=== PATIENT | male | born 1945 | race Caucasian/White ===

== ENCOUNTER 2019-11-08 16:45 | Emergency (ER) | payer OTHER, BC ==
--- OUTSIDE RECORDS SUMMARY | 2019-11-08 16:47 | XMS REPORT | Clinical Summary ---
:1945 Author Organization [facility] Address [address] [place] [address] Care Team Providers Name Role Phone Lake Roman Primary Care Provider Unavailable Allergies No Known Allergies Medications Medication Sig Dispensed Refills Start Date End Date Status metoprolol (LOPRESSOR) Take 25 mg by 0 Active 25 MG tablet mouth 2 (two) times daily. fenofibric acid, Take 135 mg by 0 Active choline, 135 mg mouth daily. capsule omega-3 acid ethyl Take 2 g by mouth 0 Active esters (LOVAZA) 1 gram 2 (two) times capsule daily. pioglitazone (ACTOS) Take 45 mg by 0 Active 45 MG tablet mouth daily. pantoprazole Take 40 mg by 0 Act howard (PROTONIX) 40 MG mouth daily. tablet aspirin 81 MG EC Take 81 mg by 0 Active tablet mouth daily. rosuvastatin (CRESTOR) Take 10 mg by 0 Active 10 MG tablet mouth daily. ranolazine (RANEXA) Take 1,000 mg by 0 Active 500 MG 12 hr tablet mouth daily. omeprazole (PRILOSEC) Take 40 mg by 0 Active 40 MG capsule mouth daily. nitroglycerin Place 0.3 mg 0 Act howard (NITROSTAT) 0.3 MG SL under the tongue tablet every 5 (five) minutes as needed for Chest pain Put 1 pill under tongue every 5min as needed for chest pain.No more than 3 doses in 15min.Call 911 if pain is unrelieved 5min after 1st dose . furosemide (LASIX) 40 Take 40 mg by 0 Active MG tablet mouth daily. cholecalciferol Take 1,000 Units 0 Active (VITAMIN D3) 1,000 by mouth daily. unit tablet omeprazole-sodium Use as directed 0 03/07/2017 Active bicarbonate (ZEGERID) 45 mg in the 40-1.1 mg-gram per mouth or throat 2 capsule (two) times daily. ticagrelor (BRILINTA) Take 1 tablet (90 180 tablet 3 9 Active 90 mg Tab tablet mg total) by mouth 2 (two) times daily. metFORMIN (GLUCOPHAGE) Earliest you can 0 10/16/2018 Active 1000 MG tablet resume the metformin after cath would be this Monday. Do not resume until seen by PCP and cleared to resume.. Active Problems Problem Noted Date Unstable angina 10/09/2018 Cardiomyopathy 07/20/2017 Dilated cardiomyopathy 07/20/2017 Syncope and collapse 12/31/2012 Social History Tobacco Use Types Packs/Day Years Used Date Never Smoker Smokeless Tobacco: Never Used Alcohol Use Drinks/Week oz/Week Comments Yes ocassional Sex Assigned at Date Recorded Not on file Job Start Date Occupation Industry Not on file Not on file Not on file Travel History Travel Start Travel End No recent travel history available. Last Filed Vital Signs Not on file Plan of Treatment Not on file Implants Implanted Type Area Hand Bunch Maker Device Shelf Model / Identifier Expiration Serial / Date Lot Lead Attain Ability Str 78cm [id number] - [id number] Cardiovascu lar Left: MEDTRONIC:CAR 09/26/2018 [id number] / Implanted: Qty: 1 on 07/21/2017 by Saud Robles MD Heart D RHY:DISEASE [id number] / MGT N/A Ld Endocardial Df4 Act 55 [id number] - [id number] Defibrillators Left: MEDTRONIC:CAR 05/20/2019 [id number] / Implanted: Qty: 1 on 07/21/2017 by Saud Robles MD Heart D RHY:DISEASE [id number] / MGT N/A Stent Synergy Otw [id number] - [id number] IMPLANTS Left: [place] [id number] 06/04/2020 [id number] / Implanted: Qty: 1 on 10/15/2018 by Collin Salas MD Coron winnie SCI:INTERV / CARDIOLOGY [id number] Claria Mri Supervisor Press Room-D Surescan Left: MEDTRONIC:CAR 10/24/2018 [id number] / Implanted: Qty: 1 on 07/21/2017 by Saud Robles MD Ch est D RHY:PACING [id number] / SYS N/A Results Not on fileafter 11/07/2018 Insurance Payer Benefit Plan / Subscriber ID Type Phone Address Group MEDICARE MEDICARE A B xxxxxxxxxxx Medicare BLUE CROSS/BLUE BCBS FED xxxxxxxxx PPO [phone] [address] [place] [address] Advance Directives For more information, please contact:[address] [phone] Code Status Date Activated Date Inactivated Comments Full Code 10/09/2018 4:30 PM 10/16/2018 12:31 PM This code status was determined by: Patient Full Code 07/20/2017 9:47 AM 07/22/2017 9:32 PM This code status was determined by: Patient Code ONE 12/31/2012 9:49 AM 01/01/2013 12:29 PM All possib le means of support including;cardia c massage, mechanical ventilation, and defibrillation will be used to suppo rt life.
--- OUTSIDE RECORDS SUMMARY | 2019-11-08 16:47 | XMS REPORT | Clinical Summary ---
:1945 Author Organization [facility] Address [address] [place] [address] Care Team Providers Name Role Phone Ken Roman MD Primary Care Provider [phone] Allergies No Known Allergies Medications Medication Sig Dispensed Refills Start Date End Date Status aspirin (ECOTRIN) 81 MG Take 81 mg by 0 Active enteric coated tablet mouth. cholecalciferol, vitamin Take 1,000 Units 0 Active D3, (VITAMIN D3) 1,000 by mouth. unit tablet choline fenofibrate Take 135 mg by 0 03/10/2017 Active (TRILIPIX) 135 mg mouth. capsule furosemide (LASIX) 40 mg Take 40 mg by 0 Active tablet mouth. HYDROcodone-acetaminophe Take 1 tablet by 0 03/06/19 18 Active n (NORCO) 10-325 mg per mouth. tablet omega-3 acid ethyl Take 2 g by 0 03/06/2017 Active esters (LOVAZA) 1 gram mouth. capsule metoprolol tartrate Take 50 mg by 0 04/19/2016 Active (LOPRESSOR) 50 mg tablet mouth. nitroglycerin Place 0.3 mg 0 03/06/2017 Ac tive (NITROSTAT) 0.3 MG SL under the tablet tongue. omeprazole (PriLOSEC) 40 Take 40 mg by 0 03/06/2017 Active MG capsule mouth. pioglitazone (ACTOS) 45 TAKE 1 TABLET 0 09/18/2017 Active MG tablet DAILY ranolazine (RANEXA) Take 1,000 mg by 0 03/10/2017 Active 1,000 mg 12 hr tablet mouth. atorvastatin (LIPITOR) Take 10 mg by 0 Active 10 MG tablet mouth daily. Active Problems Problem Noted Date Iron deficiency anemia 11/30/2017 Anemia 11/30/2017 Colon polyp Gastric ulcer GERD (gastroesophageal reflux disease) Family History Relation Name Status Comments Father Mother Social History Tobacco Use Types Packs/Day Years Used Date Never Smoker Smokeless Tobacco: Never Used Alcohol Use Drinks/Week oz/Week Comments Yes very little Sex Assigned at Date Recorded Not on file Job Start Date Occupation Industry Not on file Not on file Not on file Travel History Travel Start Travel End No recent travel history available. Last Filed Vital Signs Not on file Plan of Treatment Health Maintenance Due Date Last Done Comments DIABETIC RETINAL EYE EXAM 1945 DIABETIC FOOT EXAM 1955 URINE MICROALBUMIN 1955 SHINGLES VACCINES (#1) 1996 65+ PNEUMOCOCCAL VACCINE (1 of 2 - PCV13) 12/23/2011 INFLUENZA VACCINE 11/28/2019 COLONOSCOPY SCREENING 12/01/2027 11/30/2017 Results Not on fileafter 11/07/2018 Insurance Payer Benefit Plan / Subscriber ID Effective Dates Phone Addre ss Type Group MEDICARE MEDICARE PART A xxxxxxxxxxx 2011-Present HOUS [facility] [place] Medicare AND B BCBS BCBS CHOICE xxxxxxxxx 1984-Present P PO PPO/FEDERAL EMPL PPO Advance Directives For more information, please contact: [phone] Type Date Recorded Patient Comp Field Case Manager Explanati on Advance Directives, Living Will 12/28/2017 9:03 AM and Medical Power of Lpn [facility]ice
--- OUTSIDE RECORDS SUMMARY | 2019-11-08 16:55 | XMS REPORT | Continuity of Care Document ---
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/2012 [facility] Diabetes Resolved Problem 11/17/2012 [facility] dm Resolved Problem 11/17/2012 [facility] Fracture Active Problem 11/17/2012 [facility] Hypertension Resolved Problem 11/17/2012 [facility] Pain Active Problem 11/17/2012 [facility] Coronary bypass Resolved Problem 10/09/2019 surgery(Confirmed) [place] Diabetes mellitus Resolved Problem 10/09/2019 H (disorder) [place] dm (qualifier Resolved Problem 10/09/2019 value) [place] Essential Resolved Problem 10/09/2019 hypertension [place] (disorder) Pain (finding) Active Problem 10/09/2019 [place] ANEMIA IN CHRONIC Active Sd morial KIDNEY DISEASE Gabriela nn GASTROINTESTINAL Active Mem orial HEMORRHAGE, Aric UNSPECIFIED NON-ST ELEVATION Active Mem orial (NSTEMI) MYOCARDIAL Aric INF ACUTE KIDNEY Active Memoria l FAILURE, Aric UNSPECIFIED ACUTE RESPIRATORY Active [facility] FX FIBULA Active [facility] Medications Medication Details Route Status Patient Ordering Order Source Instructions Provider Date bumetanide 2 mg 2 mg = 1 tab, Active oral tablet PO, Q8H, Hold [address] [place] for systolic blood pressure less than 100 or heart rate less than 60, # 30 tab, 0 Refill(s), [id number], 175.26, cm, 10/04/19 20:03:00 CDT, Height, 123, kg, 10/04/19 20:03:00 CDT, Weight isosorbide 60 mg = 1 Active mononitrate 60 mg tab, PO, QAM, 2019 [place] oral tablet, Hold for extended release systolic blood pressure less than 100 or heart rate less than 60, # 90 tab, 1 Refill(s), [id number], 175.26, cm, 10/04/19 20:03:00 CDT, Height, 123, kg, 10/04/19 20:03:00 CDT, Weight Tylenol Notes: Do not Inactive exceed 4 2019 [place] gm/day. (Same as: Tylenol) albumin human 25% Notes: LOT#: Inactive intravenous 2020 [place] solution Mfg: WASTE: F/P - Red; E -Red (Same as: Albuminar) "blood product derivative" Potassium Notes: (Same Inactive Chloride as: K-Dur ) 2019 [place] "Do Not Crush" Give with food and full glass of water For patients unable to swallow tablet, dissolve in one half glass of water. Allow about 2 minutes for the tablets to disintegrate. Stir before giving to prepare slurry and administer. Please exclude Patient&#[id number] ;s with feeding tube less than 14 [place] (Dobhoff, J-tube etc) and pediatric and patients. metolazone Notes: (Same No Longer as: Active 2019 [place] Zaroxolyn) Vitamin D3 1999 Notes: Same No Longer intl units oral as : Vitamin Active 2019 [place] tablet D3 Fenofibrate 135 mg, 1 No Longer cap, Route: Active 2019 [place] PO, Drug form: CAP, Daily, Dosing Weight 123, kg, Start date: 10/06/19 9:00:00 CDT, Duration: 30 day, Stop date: 11/04/19 9:00:00 CDT fenofibrate Notes: (Same No Longer as: Tricor) Active 2019 [place] Aspirin Notes: Do not No Longer crush or Active 2019 [place] chew. (Same As: Ecotrin) isosorbide Notes: (Same No Longer mononitrate as:Imdur) "Do Active 2019 [place] extended release Not Crush" Take on empty stomach/ full glass of water. Do not crush Metolazone 5 MG Notes: (Same Inactive Oral Tablet as: 2019 [place] Zaroxolyn) Bumex Notes: (Same No Longer As: Bumex) Active 2019 [place] Bumex 2 mg, Route: Inactive IV, Q8H, 2019 [place] Dosing Weight 123, kg, Priority: NOW, Start date: 10/05/19 23:06:00 CDT, Duration: 30 day, Stop date: 11/04/19 16:00:00 CDT Sodium Chloride 250 mL, Rate: No Longer 0.9% (titrate) To prime line Active 2019 [place] 250 mL and flush remaining blood products., Dosing Weight 123, kg, Route: IV, Total Volume: 250, Start Date: 10/05/19 23:05:00 CDT, Duration: 1 day, Stop date: 10/06/19 23:04:00 CDT, Replace Every: 24 hr, 0 albumin human 25% 25 gm, Route: Inactive intravenous IVPB, ONCE, 2019 [place] solution Dosing Weight 123, kg, Start date: 10/05/19 21:22:00 CDT, Stop date: 10/05/19 21:22:00 CDT, Indication: Non-hemorrhag ic shock Morphine Notes: (Same No Longer as:MORPhine Active 2019 [place] Sulfate) Dilaudid Notes: Same No Longer as: Dilaudid Active 2019 [place] atorvastatin Notes: (Same No Longer As: Lipitor) Active 2019 [place] Jones packet Notes: (Same No Longer as: Jones Active 2019 [place]) Bumex Notes: (Same Inactive As: Bumex) 2019 [place] Fluticasone Notes: (Same No Longer propionate 0.05 as: Flonase) Active 2019 [place] MG/ACTUAT Metered Dose Nasal [place] [Flonase] Protonix Notes: For IV No Longer push Active 2019 [place] reconstitute with 10 ml 0.9% sodium chloride and push over 2 minutes. (Same as: Protonix) Sodium Chloride 250 mL, Rate: No Longer 0.9% (titrate) To prime line Active 2019 [place] 250 mL and flush remaining blood products., Dosing Weight 123, kg, Route: IV, Total Volume: 250, Start Date: 10/05/19 14:06:00 CDT, Duration: 1 day, Stop date: 10/06/19 14:05:00 CDT, Replace Every: 24 hr, 0 Morphine 4 mg, Route: Inactive IVP, ONCE, 2019 [place] Dosing Weight 123, kg, Start date: 10/05/19 10:08:00 CDT, Stop date: 10/05/19 10:08:00 CDT Nitroglycerin 0.3 Notes: (Same No Longer MG Sublingual as:Nitroquick Active 2019 [facility] Tablet , Nitrostat) "Do Not Crush" Sublingual tablet Sodium Chloride 250 mL, Rate: No Longer 0.9% (titrate) To prime line Active 2019 [place] 250 mL and flush remaining blood products., Dosing Weight 123, kg, Route: IV, Total Volume: 250, Start Date: 10/05/19 7:25:00 CDT, Duration: 1 day, Stop date: 10/06/19 7:24:00 CDT, Replace Every: 24 hr, 0 12 HR ranolazine Notes: Same No Longer H 500 MG Extended as Ranexa "Do Active 2019 [place] Release Tablet Not Crush" [Ranexa] metoprolol 25 mg 12.5 mg = 0.5 No Longer oral tablet, tab, PO, BID, Active 2019 [place] and extended release 0 Refill(s) pregabalin 75 mg 75 mg = 1 Active oral capsule cap, PO, 2019 [place] Bedtime, 0 Refill(s) atorvastatin 20 mg, PO, Active Bedtime, 0 2019 [place] Refill(s) pantoprazole 40 40 mg = 1 Active mg oral enteric tab, PO, BID, 2019 [place] coated tablet 0 Refill(s) Bumex 2 mg, IV, No Longer Q8H, 0 Active 2019 [place] Refill(s) Metolazone 5 MG 5 mg = 1 tab, Active Oral Tablet PO, Daily, 2019 [place] Hold for systolic blood pressure less than 100 or heart rate less than 60, 0 Refill(s) nafcillin 2 g IV, Q4H, 0 Active injection Refill(s) 2019 [place] Fluticasone 1 spray, Active propionate 0.05 NASAL, BID, # 2020 [place] MG/ACTUAT Metered 16 gm, 0 Dose Nasal [place] Refill(s) [Flonase] Loratadine 10 MG 10 mg = 1 Active Oral Tablet tab, PO, 2019 [place] [Claritin] Daily, 0 Refill(s) Bumex Notes: (Same Inactive As: Bumex) 2019 [place] Ondansetron Notes: (Same No Longer as: Zofran) Active [address] [place] [address] MEDICATION WASTE Product Size: 4 mg Product Wasted: ___ mg Nafcillin 2 gm, Route: No Longer IVPB, Q4H, Active 2019 [place] Dosing Weight 122.727, kg, Start date: 10/04/19 16:00:00 CDT, Duration: 30 day, Stop date: 11/03/19 12:00:00 CDT, 0 Dextrose 50% 12.5 gm, 25 No Longer Syringe (D50W) mL, Route: Active 2019 [facility] nd IVP, Drug Form: INJ, Dosing Weight 122.727, kg, PRN, PRN Blood Glucose Results, Start date: 10/04/19 15:27:00 CDT, Duration: 30 day, Stop date: 11/03/19 15:26:00 CDT, 0 Glucagon 1 mg, Route: No Longer IM, Drug Active 2019 [place] form: PDR/INJ, PRN, Dosing Weight 122.727, kg, PRN Blood Glucose Results, Start date: 10/04/19 15:27:00 CDT, Duration: 30 day, Stop date: 11/03/19 15:26:00 CDT, 0 Insulin Lispro Notes: (Same No Longer as: Humalog) Active 2019 [place] Roll in palms of hands gently; Do not shake vigorously. WASTE: F/P - Black; E - Municipal Trash Bin Stable for 28 days at room temperature. Expires in days from _Date pantoprazole Notes: For IV No Longer additive 80 mg + push Active 2019 [place] Sodium Chloride reconstitute 0.9% IV 100 mL with 10 ml 0.9% sodium chloride and push over 2 minutes. (Same as: Protonix) Sodium Chloride 250 mL, Rate: No Longer 0.9% (titrate) To prime line Active 2019 [place] 250 mL and flush remaining blood products., Dosing Weight 122.727, kg, Route: IV, Total Volume: 250, Start Date: 10/04/19 13:05:00 CDT, Duration: 1 day, Stop date: 10/05/19 13:04:00 CDT, Replace Every: 24 hr, 0 Saline Flush 0.9% Notes: Same No Longer as: BD Active 2019 [place] Posiflush Sterile Sodium Chloride 1,000 mL, Inactive 0.9% (Bolus) IV 1000 ml/hr, 2020 [place] Infuse Over: 1 hr, Route: IV, 1,000, Drug form: INJ, ONCE, Priority: STAT, Dosing Weight 122.727 kg, Start date: 10/04/19 11:51:00 CDT, Stop date: 10/04/19 11:51:00 CDT, 0 pantoprazole Notes: For IV Inactive push 2019 [place] reconstitute with 10 ml 0.9% sodium chloride and push over 2 minutes. (Same as: Protonix) metoprolol 25 mg 25 mg = 1 Active oral tablet, tab, PO, 2019 [place] extended release Daily, # 30 tab, 0 Refill(s) Ticagrelor 90 MG 90 mg = 1 Active Oral Tablet tab, PO, BID, 2019 [place] [Brilinta] 0 Refill(s) omeprazole 40 mg 40 mg = 1 Active oral delayed cap, PO, 2019 [place] release capsule Daily, # 30 cap, 0 Refill(s) [place]-3 oral 0 Refill(s) Active capsule 2019 [place] isosorbide 30 mg = 1 Active mononitrate 30 mg tab, PO, QAM, 2019 [place] oral tablet, # 30 tab, 0 extended release Refill(s) 12 HR ranolazine 500 mg = 1 Active 500 MG Extended tab, PO, BID, 2019 [place] Release Tablet # 60 tab, 0 Refill(s) lisinopril 10 mg 10 mg = 1 Active oral tablet tab, PO, 2019 [place] Daily, # 30 tab, 0 Refill(s) fenofibric acid 135 mg = 1 Active 135 mg oral cap, PO, 2019 [place] delayed release Daily, # 30 capsule cap, 0 Refill(s) pioglitazone 45 45 mg = 1 Active mg oral tablet tab, PO, 2019 [place] Daily, # 30 tab, 0 Refill(s) rosuvastatin 10 10 mg = 1 Active mg oral tablet tab, PO, 2019 [place] Bedtime, # 30 tab, 0 Refill(s) Aspirin 81 MG 81 mg = 1 Active Chewable Tablet tab, PO, 2019 [place] Daily, tab, 0 Refill(s) Vitamin D3 2000 2,000 Active intl units oral IntlUnit = 1 2019 [place] capsule cap, PO, Daily, # 100 cap, 3 Refill(s) Nitroglycerin 0.3 0.3 mg = 1 Active MG Sublingual tab, SL, 2019 [place] Tablet Q5Min, PRN Chest Pain, # 100 tab, 0 Refill(s) Acetaminophen 325 1 tab, PO, Active MH MG / Hydrocodone Q8H, PRN 2020 [place] Bitartrate 10 MG Pain, # 60 Oral Tablet tab, 0 Refill(s) mupirocin topical 1 appl, TOP, TOP Active [facility] [place] 2% ointment BID, 22 gm, 2012 [facility] Substitution Center Allowed, OINT mupirocin topical 1 appl, TOP, TOP No Longer [facility] [place] 2% ointment BID, 1 tube, Active 2012 [facility] Substitution Center Allowed, OINT docusate sodium 100 mg, PO, PO Active [place] 100 mg oral BID, PRN, 20 2012 Medical capsule cap, Center Constipation, Substitution Allowed [place] 10/325 oral 1 tab, PO, PO Active [facility] [place] tablet Q4H, PRN, 24 2012 Medical tab, for Center pain, Substitution Allowed, Maintenance pregabalin 100 mg 100 mg, 1 PO Active [place] oral capsule cap, PO, Q8H, 2012 Medic al 90 cap, Center Substitution Allowed, CAP pantoprazole 40 40 mg, 1 tab, PO Active [facility] [place] mg oral enteric PO, Q12H, 60 2012 Med ical coated tablet tab, Center Substitution Allowed, ECTAB metoprolol 25 mg, 1 tab, PO Active [place] tartrate 25 mg PO, Q12H, 60 2012 Medi aysha oral tablet tab, Center Substitution Allowed, TAB Trilipix 135 mg 135 mg, 1 PO Active [place] oral delayed cap, PO, 2012 Medical release capsule Daily, 30 Center cap, Substitution Allowed, CAP bacitracin 1 appl, TOP, TOP No Longer [facility] [place] topical 500 Daily, PRN, 1 Active 2012 Medica l units/g ointment tube, Wound [place] [facility] Care, Substitution Allowed, OINT atorvastatin 40 40 mg, 1 tab, PO Active [facility] [place] mg oral tablet PO, Daily, 30 2012 Med ical tab, Center Substitution Allowed, TAB aspirin 325 mg 325 mg, 1 PO Active [place] tablet, enteric tab, PO, 2013 Medical coated Daily, 30 Center tab, Substitution Allowed, ECTAB AMIODarone 200 mg 200 mg, 1 PO Active [place] oral tablet tab, PO, 2012 Medical Daily, 30 Center tab, Substitution Allowed, TAB Lovaza oral 1,000 mg, 1 PO Active [facility] [place] capsule cap, PO, BID, 2012 Medical 60 cap, Center Substitution Allowed, Maintenance, CAP Bactroban 2% 1 appl, TOP No Longer [facility] [place] topical ointment Route: TOP, Active 2012 Med ical BID, Drug Center form: OINT, Cleanse left posterior thigh wound with wound cleanser. Pat dry and apply Bactroban ointment BID., Start date: 11/14/12 20:00:00, Duration: 30 day, Stop date: 12/14/12 8:00:00 Bactroban 1 appl, TOP No Longer [facility] [place] Route: TOP, Active 2012 Medical BID, Drug Center form: OINT, Cleanse left posterior thigh wound with wound cleanser. Pat dry and apply Bactroban ointment BID., Start date: 11/14/12 17:00:00, Duration: 30 day, Stop date: 12/14/12 8:00:00 NS 1,000 mL 1,000 mL, IV No Longer Inder [place] Rate: 75 Active 2012 Medical ml/hr, Infuse Center over: 13.3 hr, Route: IV, Dosing Weight 109.091 kg, Total Volume: 1,000, Start date: 11/12/12 20:08:00, Duration: 30 day, Stop date: 12/12/12 20:07:00 magnesium sulfate 2 gm, 50 mL, IVPB No Longer [place] 11/13 [place] Route: IVPB, Active 2012 Medical Drug form: Center INJ, Q2H, Dosing Weight 109.091, kg, Total dose = 4 gm, Start date: 11/12/12 20:00:00, Duration: 2 doses or times, Stop date: 11/12/12 22:00:00 nitroglycerin 0.4 0.4 mg, 1 SL No Longer [place] mg sublingual tab, Route: Active 2012 Medica l tablet SL, Drug Center form: TAB, Q5Min, Dosing Weight 109.091, kg, PRN Chest Pain, Start date: 11/08/12 9:03:00, Duration: 30 day, Stop date: 12/08/12 9:02:00 magnesium sulfate 2 gm, 50 mL, IVPB No Longer [place] 11/08 [place] Route: IVPB, Active 2012 Medical Drug form: [place] INJ, Q2H, Dosing Weight 109.091, kg, Total dose = 4 gm, Start date: 11/08/12 8:00:00, Duration: 2 doses or times, Stop date: 11/08/12 10:00:00 hydrALAZINE 5 mg, 0.25 IV No Longer [place] mL, Route: Active 2012 [facility] IV, Drug Center form: INJ, Q6H, Dosing Weight 109.091, kg, PRN Elevated BP, Start date: 11/07/12 21:12:00, Duration: 30 day, Stop date: 12/07/12 21:11:00 NS 1,000 mL 1,000 mL, IV No Longer [place] Rate: 75 Active 2012 Medical ml/hr, Infuse [place] over: 13.3 hr, Route: IV, Dosing Weight 109.091 kg, Total Volume: 1,000, Start date: 11/07/12 6:30:00, Duration: 30 day, Stop date: 12/07/12 6:29:00 lisinopril 10 mg, 1 tab, PO No Longer [place] Route: PO, Active 2012 Medical Drug form: [place] TAB, ONCE, Dosing Weight 109.091, kg, Start date: 11/05/12 17:01:00, Stop date: 11/05/12 17:01:00 midodrine 10 mg, 1 tab, PO No Longer [place] Route: PO, Active 2012 Medical Drug form: [place] TAB, TID, Dosing Weight 109.091, kg, Start date: 11/04/12 13:00:00, Duration: 30 day, Stop date: 12/04/12 8:00:00 Kayexalate 15 gm, 60 mL, PO No Longer [place] Route: PO, Active 2012 Medical Drug form: [place] SUSP, ONCE, Dosing Weight 109.091, kg, Start date: 11/04/12 10:39:00, Stop date: 11/04/12 10:39:00 insulin 3 unit, 0.03 SUB-Q No Longer [place] isophane-NPH mL, Route: Active 2012 Medical SUB-Q, Drug Center form: INJ, BID, Dosing Weight 109.091, kg, Start date: 11/03/12 11:30:00, Duration: 30 day, Stop date: 12/03/12 8:00:00 magnesium sulfate 2 gm, 50 mL, IVPB No Longer Bubis Eddie Route: IVPB, Active 2012 Medical Drug form: Center INJ, Q2H, Dosing Weight 109.091, kg, Total Dose = 4 gm, Start date: 11/03/12 8:00:00, Duration: 2 doses or times, Stop date: 11/03/12 10:00:00, For Mg = 1.5 - 1.7 mg/dLFor Mg = 1.5 - 1.7 mg/dL Sodium Chloride 250 mL, Rate: IV No Longer Bubis [place] 0.9% (titrate) 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 250 mL use with Center blood product administratio n, Dosing Weight 109.091, kg, Route: IV, Total Volume: 250, Stop date: 12/03/12 7:29:00, Replace Every: 1 hr normal saline 1,000 mL, IV No Longer Bubis [place] 0.9% IV 1,000 mL Rate: 100 Active 2012 Medic al ml/hr, Infuse Center over: 10 hr, Route: IV, Dosing Weight 109.091 kg, Total Volume: 1,000, Start date: 11/02/12 18:27:00, Duration: 2 day, Stop date: 11/04/12 18:26:00 NS (Bolus) IV 500 500 mL, Rate: IV No Longer Omidvar Eddie mL 500 ml/hr, Active 2012 Medical Infuse over: Center 1 hr, Route: IV, Dosing Weight 109.091 kg, Total Volume: 500, Priority: STAT, Start date: 11/01/12 21:26:00, Duration: 1 doses or times, Stop date: 11/01/12 22:25:00, Bolus DoseBolus Dose Lovaza Lovaza PO No Longer Bubis Eddie ([id number] (Tijfb-1-Stxr Active 2012 [facility] Ethyl Esters) Ethyl Esters) Cent er Capsules (1 gm) Capsules (1 gm), 2 cap, Drug form: MISC, Route: PO, BID, 11/01/12 20:00:00, Duration: 30 day, Stop date: 12/01/12 8:00:00 Kayexalate 30 gm, 120 PO No Longer Bubis [place] mL, Route: Active 2012 Medical PO, Drug Center form: SUSP, ONCE, Dosing Weight 109.091, kg, Start date: 11/01/12 15:18:00, Stop date: 11/01/12 15:18:00 normal saline 1,000 mL, IV No Longer Bubis [place] 0.9% IV 1,000 mL Rate: 75 Active 2012 Medica l ml/hr, Infuse Center over: 13.3 hr, Route: IV, Dosing Weight 109.091 kg, Total Volume: 1,000, Start date: 11/01/12 14:26:00, Duration: 1 day, Stop date: 11/02/12 14:25:00 normal saline 1,000 mL, IV No Longer is Moe as 0.9% IV 1,000 mL Rate: 1,000 Active 2012 Med ical ml/hr, Infuse Center over: 1 hr, Route: IV, Dosing Weight 109.091 kg, Total Volume: 1,000, Start date: 11/01/12 14:25:00, Duration: 1 doses or times, Stop date: 11/01/12 15:24:00 Kayexalate 30 gm, Route: PO No Longer [place] PO, Drug Active 2012 Medical form: SUSP, Center ONCE, Dosing Weight 109.091, kg, Start date: 11/01/12 11:26:00, Stop date: 11/01/12 11:26:00 aspirin 325 mg, 1 PO No Longer [place] tab, Route: Active 2012 Medical PO, Drug Center form: ECTAB, Daily, Dosing Weight 109, kg, Start date: 10/31/12 8:00:00, Duration: 30 day, Stop date: 11/29/12 8:00:00 bisacodyl 10 mg, 1 SD No Longer [place] 10/30[facility] supp, Route: Active 2012 Medical SD, Drug Center form: SUPP, Daily, Dosing Weight 109, kg, PRN Constipation, Start date: 10/30/12 15:07:00, Duration: 30 day, Stop date: 11/29/12 15:06:00 Dextrose 50% 25 gm, 50 mL, IVP No Longer [place] 10/30[facility] Syringe Route: IVP, Active 2012 Medical Drug Form: [place] INJ, Dosing Weight 109, kg, PRN, PRN Blood Glucose Results, Start date: 10/30/12 10:52:00, Stop date: 11/25/12 10:51:00 magnesium citrate 150 ml, PO No Longer Cam[place]lu [facility] Route: PO, Active 2012 Medical Drug Form: [place] LIQ, Dosing Weight 109.091, kg, ONCE, Start date: 10/29/12 11:02:00, Stop date: 10/29/12 11:02:00 Lovenox 30 mg, 0.3 SUB-Q No Longer raish 10/29[facility] mL, Route: Active 2012 Medical SUB-Q, Drug Center form: INJ, Q12H, Dosing Weight 109.091, kg, Start date: 10/29/12 9:00:00, Duration: 28 day, Stop date: 11/25/12 21:00:00 tamsulosin 0.4 mg, 1 PO No Longer Bubis 10/27[facility] cap, Route: Active 2012 Medical PO, Drug Center form: CAP, After Dinner, Dosing Weight 109, kg, Start date: 10/27/12 17:00:00, Duration: 30 day, Stop date: 11/25/12 17:00:00 Lovenox 30 mg, 0.3 SUB-Q No Longer Khraish 10/27[facility] mL, Route: Active 2012 Medical SUB-Q, Drug Center form: INJ, Q12H, Dosing Weight 109.091, kg, Start date: 10/27/12 16:00:00, Stop date: 11/26/12 9:00:00 pantoprazole 40 mg, 1 tab, PO No Longer Osuagwu [facility] Route: PO, Active 2012 Medical Drug form: Center ECTAB, Q12H, Dosing Weight 109, kg, Start date: 10/27/12 9:00:00, Duration: 30 day, Stop date: 11/25/12 21:00:00 metoprolol 25 mg, 1 tab, PO No Longer [place] tartrate Route: PO, Active 2012 Medical Drug form: Center TAB, Q12H, Dosing Weight 109, kg, Start date: 10/27/12 9:00:00, Stop date: 11/25/12 21:00:00 magnesium sulfate 2 gm, 50 mL, IVPB No Longer [place] 10/27 [facility] Route: IVPB, Active 2012 Medical Drug form: [place] INJ, Q2H, Dosing Weight 109, kg, Total dose = 4 gm, Start date: 10/27/12 8:00:00, Duration: 2 doses or times, Stop date: 10/27/12 10:00:00 pregabalin 100 mg, 1 PO No Longer Bubis [facility] cap, Route: Active 2012 Medical PO, Drug Center form: CAP, Q8H, Dosing Weight 109, kg, Start date: 10/27/12 8:00:00, Stop date: 11/26/12 0:00:00 Lovaza 1,000 mg, 1 PO No Longer Bubis [facility] cap, Route: Active 2012 Medical PO, Drug Center Form: CAP, Dosing Weight 109, kg, BID, Start date: 10/27/12 8:00:00, Duration: 30 day, Stop date: 11/25/12 20:00:00 multivitamin 1 tab, Route: PO No Longer Osuagwu [facility] PO, Drug Active 2012 Medical Form: TAB, Center Dosing Weight 109, kg, Daily, Start date: 10/27/12 8:00:00, Duration: 30 day, Stop date: 11/25/12 8:00:00 lisinopril 2.5 mg, 1 PO No Longer [place] tab, Route: Active 2012 Medical PO, Drug Center form: TAB, Daily, Dosing Weight 109, kg, Start date: 10/27/12 8:00:00, Stop date: 11/25/12 8:00:00 Lidoderm 5% 1 patch, TOP No Longer Bubis [facility] topical film Route: TOP, Active 2012 Medical (patch) Daily, Drug Center form: FILM, Start date: 10/27/12 8:00:00, Duration: 30 day, Stop date: 11/24/12 10:30:00 Trilipix 135 mg, 1 PO No Longer Bubis [facility] cap, Route: Active 2012 Medical PO, Drug Center form: CAP, Daily, Dosing Weight 109, kg, Start date: 10/27/12 8:00:00, Stop date: 11/25/12 8:00:00 atorvastatin 40 mg, 1 tab, PO No Longer Osuagwu [facility] Route: PO, Active 2012 Medical Drug form: Center TAB, Daily, Dosing Weight 109, kg, Start date: 10/27/12 8:00:00, Duration: 30 day, Stop date: 11/25/12 8:00:00 aspirin 81 mg, 1 tab, PO No Longer [place] Route: PO, Active 2012 Medical Drug form: Center ECTAB, Daily, Dosing Weight 109, kg, Start date: 10/27/12 8:00:00, Duration: 30 day, Stop date: 11/25/12 8:00:00 AMIODarone 200 mg, 1 PO No Longer Osuagwu [facility] tab, Route: Active 2012 Medical PO, Drug Center form: TAB, Daily, Dosing Weight 109, kg, Start date: 10/27/12 8:00:00, Duration: 30 day, Stop date: 11/25/12 8:00:00 Ultram 50 mg oral 50 mg, 1 tab, PO No Longer [place] 09/29 [facility] tablet Route: PO, Active 2012 Medical Drug form: Center TAB, Q6H, Dosing Weight 109, kg, PRN Pain Score 4-6, Start date: 10/27/12 0:09:00, Stop date: 11/26/12 0:08:00 [place] 10/325 oral 1 tab, Route: PO No Longer Cam[place]lu 09/29 [facility] tablet PO, Drug Active 2012 Medical Form: TAB, Center Dosing Weight 109, kg, Q6H, PRN Pain Score 7-10, Start date: 10/27/12 0:09:00, Stop date: 11/26/12 0:08:00 bacitracin 1 appl, TOP No Longer Osuagwu [facility] topical 500 Route: TOP, Active 2012 Medical units/g ointment Daily, Drug [address] form: OINT, PRN Wound Care, Start date: 10/27/12 0:05:00, Stop date: 11/26/12 0:04:00 docusate 100 mg, 1 PO No Longer Cam[place]lu [facility] cap, Route: Active 2012 Medical PO, Drug Center form: CAP, BID, Dosing Weight 109, kg, Start date: 10/26/12 17:00:00, Duration: 30 day, Stop date: 11/25/12 9:00:00 Insulin regular 1 unit, 0.01 SUB-Q No Longer Camcioglu [facility] mL, Route: Active 2012 Medical SUB-Q, Drug Center form: SOLN, TID-Before Meals, Dosing Weight 109, kg, PRN Blood Glucose Results, Start date: 10/26/12 16:50:00, Duration: 30 day, Stop date: 11/25/12 16:49:00 bisacodyl 10 mg, 1 SD No Longer [place]lu [facility] supp, Route: Active 2012 Medical SD, Drug Center form: SUPP, ONCE, Dosing Weight 109, kg, PRN Constipation, Start date: 10/26/12 16:50:00 Milk of Magnesia 30 mL, Route: PO No Longer [place] 10/26 [facility] PO, Drug Active 2012 Medical Form: SUSP, Center Dosing Weight 109, kg, Daily, PRN Constipation, Start date: 10/26/12 16:50:00, Duration: 30 day, Stop date: 11/25/12 16:49:00 Lidoderm 5% 1 patch, TOP, TOP On Hold Osuagwu Moe [place] topical film Daily, 2012 Medical (patch) patch, Center Substitution Allowed, FILM pregabalin 50 mg 50 mg, 1 cap, PO On Hold Osuagwu 10/26/ H [place] oral capsule PO, Q8H, 60 2012 Medical cap, Center Substitution Allowed, CAP tamsulosin 0.4 mg 0.4 mg, 1 PO On Hold [place] 10[place]26/ [place] oral capsule cap, PO, 2012 Medical After Dinner, Center 30 cap, Substitution Allowed, CAP bacitracin 1 appl, TOP, TOP On Hold Osuagwu [place] topical 500 Daily, PRN, 1 2012 Medica l units/g ointment tube, Wound [address] [facility], Substitution Allowed, OINT AMIODarone 200 mg 200 mg, 1 PO On Hold [place]wu 10/26/ [place] oral tablet tab, PO, 2012 Medical Daily, 30 Center tab, Substitution Allowed, TAB pantoprazole 40 40 mg, 1 tab, PO [facility] 10[facility]/ [place] mg oral enteric PO, Q12H, 60 2012 Med ical coated tablet tab, Center Substitution Allowed, ECTAB AMIODarone 200 mg, 1 PO No Longer [place] tab, Route: Active 2012 Medical PO, Drug Center form: TAB, Daily, Dosing Weight 109, kg, Start date: 10/26/12 9:00:00, Duration: 30 day, Stop date: 11/24/12 9:00:00 Remove - 1 patch, TOP No Longer Camcioglu [facility] lidocaine topical Route: TOP, Active 2012 Me dical patch Daily, Drug Center form: ERFILM, Start date: 10/26/12 9:00:00, Duration: 30 day, Stop date: 11/24/12 9:00:00 magnesium sulfate 2 gm, 50 mL, IVPB No Longer Cam[place]lu 10/26 [facility] Route: IVPB, Active 2012 Medical Drug form: Center INJ, Q2H, Dosing Weight 109, kg, Total dose = 4 gm, Start date: 10/26/12 8:00:00, Duration: 2 doses or times, Stop date: 10/26/12 10:00:00 lidocaine topical 2 patch, TOP No Longer Henschel Eddie patch (5% film) Route: TOP, Active 2012 [facility] Bed[facility], Drug Center form: FILM, Start date: 10/25/12 23:00:00, Duration: 30 day, Stop date: 11/24/12 21:00:00, Remove after 12 hoursRemove after 12 hours Flomax 0.4 mg, 1 PO No Longer Camcioglu [facility] cap, Route: Active 2012 Medical PO, Drug Center form: CAP, After Dinner, Dosing Weight 109, kg, Start date: 10/25/12 17:00:00, Duration: 30 day, Stop date: 11/23/12 17:00:00 bacitracin 1 appl, TOP No Longer Camci[place]lu [facility] topical Route: TOP, Active 2012 Medical Q6H, Drug Center form: OINT, Start date: 10/25/12 12:00:00, Duration: 30 day, Stop date: 11/24/12 6:00:00 ketorolac 30 mg, 1 mL, IV No Longer Osuagwu [place] Route: IV, Active 2012 Medical Drug form: Center INJ, ONCE, Dosing Weight 109, kg, Start date: 10/25/12 2:08:00, Duration: 1 doses or times, Stop date: 10/25/12 2:08:00 ondansetron 4 mg, 2 mL, IVP No Longer Pathikonda [facility] Route: IVP, Active 2012 Medical Drug form: Center INJ, ONCE, Dosing Weight 109, kg, PRN Nausea & Vomiting, Start date: 10/24/12 22:19:00 flumazenil 0.2 mg, 2 mL, IVP No Longer Pathikonda [facility] Route: IVP, Active 2012 Medical Drug form: Center INJ, PRN, Dosing Weight 109, kg, PRN Benzodiazepin e Reversal, Initial dose, Start date: 10/24/12 22:19:00, Stop date: 10/25/12 6:00:00 naloxone 0.04 mg, 0.1 IVP [place] Long[place] mL, Route: Active 2012 Medical IVP, Drug Center form: INJ, Q2MIN, Dosing Weight 109, kg, PRN Narcotic Reversal, Start date: 10/24/12 22:19:00, Duration: 8 doses or times, Stop date: 10/25/12 6:00:00 hydromorphone 0.5 mg, 0.25 IVP No Longer Pathikonda [facility] mL, Route: Active 2012 Medical IVP, Drug Center form: INJ, Q5Min, Dosing Weight 109, kg, PRN Pain Score 7-10, Start date: 10/24/12 22:19:00, Duration: 5 doses or times, Stop date: 10/25/12 6:00:00 labetalol 5 mg, 1 mL, IVP [place] Long[place] Route: IVP, 2012 Medical Drug form: Center INJ, Q5Min, Dosing Weight 109, kg, PRN Elevated BP, Start date: 10/24/12 22:19:00, Duration: 5 doses or times, Stop date: 10/25/12 6:00:00 naloxone 0.04 mg, IVP No Longer Pathikonda [facility] Route: IVP, Active 2012 Medical Q2MIN, Dosing Center Weight 109, kg, PRN Narcotic Reversal, Start date: 10/24/12 22:15:00, Duration: 8 doses or times, Stop date: Limited # of times ondansetron 4 mg, Route: IVP No Longer Jahairaikonda [facility] IVP, ONCE, 2012 Medical Dosing Weight Center 109, kg, PRN Nausea & Vomiting, Start date: 10/24/12 22:15:00 flumazenil 0.2 mg, IVP No Longer Pathikonda [facility] Route: IVP, 2012 Medical PRN, Dosing Center Weight 109, kg, PRN Benzodiazepin e Reversal, Initial dose, Start date: 10/24/12 22:15:00, Duration: 30 day, Stop date: 11/23/12 22:14:00 labetalol 5 mg, Route: IVP No Longer [place] IVP, Q5Min, Active 2012 Medical Dosing Weight Center 109, kg, PRN Elevated BP, Start date: 10/24/12 22:15:00, Duration: 5 doses or times, Stop date: Limited # of times Ancef 2 gm, 50 mL, IVP [place] Long[place] Route: IVP, Active 2012 Medical Drug form: Center INJ, ONCE, Dosing Weight 109, kg, Start date: 10/24/12 20:12:00, Stop date: 10/24/12 20:12:00 lisinopril 40 mg, 2 tab, PO No Longer [place] Route: PO, Active 2012 Medical Drug form: Center TAB, Daily, Dosing Weight 109, kg, Start date: 10/24/12 9:00:00, Duration: 30 day, Stop date: 11/22/12 9:00:00 Remove - 1 patch, TOP No Longer Bogomolny [facility] lidocaine topical Route: TOP, Active 2012 Me dical patch Daily, Drug Center form: ERFILM, Start date: 10/20/12 9:00:00, Duration: 30 day, Stop date: 11/18/12 9:00:00 normal saline 500 mL, Rate: IV No Longer Bubis Eddie 0.9% IV 500 mL 500 ml/hr, Active 2012 Medica l Infuse over: Center 1 hr, Route: IV, Dosing Weight 109 kg, Total Volume: 500, Start date: 10/20/12 8:29:00, Duration: 1 doses or times, Stop date: 10/21/12 8:28:00 magnesium sulfate 2 gm, 50 mL, IVPB No Longer Bubis Eddie Route: IVPB, Active 2012 Medical Drug form: Center INJ, Q2H, Dosing Weight 109, kg, Total Dose = 6 gm, Start date: 10/19/12 22:00:00, Duration: 1 doses or times, Stop date: 10/19/12 22:00:00, For Mg = 1 - 1.4 mg/dLFor Mg = 1 - 1.4 mg/dL Lidoderm 5% 2 patch, TOP No Longer Henschel Eddie topical film Route: TOP, Active 2012 Medical (patch) Daily, Drug Center form: FILM, Start date: 10/19/12 21:00:00, Stop date: 11/17/12 21:00:00, Remove after 12 hoursRemove after 12 hours [place] 10/325 oral 1 tab, Route: PO No Longer Bogomolny 09/28 [facility] tablet PO, Drug Active 2012 Medical Form: TAB, Center Dosing Weight 109, kg, Q4H, Start date: 10/19/12 20:00:00, Duration: 30 day, Stop date: 11/18/12 16:00:00 Lyrica 50 mg, 1 cap, PO No Longer Bogomolny Moe as Route: PO, Active 2012 Medical Drug form: Center CAP, Q8H, Dosing Weight 109, kg, Priority: NOW, Start date: 10/19/12 18:15:00, Duration: 30 day, Stop date: 11/18/12 16:00:00 tramadol 100 mg, 2 PO No Longer Bogomolny [facility] tab, Route: Active 2012 Medical PO, Drug Center form: TAB, Q6H, Dosing Weight 109, kg, Start date: 10/19/12 18:00:00, Duration: 30 day, Stop date: 11/18/12 12:00:00 cefazolin + 2 gm, Route: IVPB [place] Longer [place] Sodium Chloride IVPB, ABXQ8H, Active 2012 Me dical 0.9% IV 100 mL Start date: Cente r 10/19/12 17:30:00, Duration: 3 doses or times, Stop date: 10/20/12 9:30:00 [place]ul[place] 10/325 oral 1 tab, Route: PO No Longer Bogomolny 09/28 [facility] tablet PO, Drug Active 2012 Medical Form: TAB, Center Dosing Weight 109, kg, Q4H, PRN Pain, Start date: 10/19/12 17:09:00, Duration: 30 day, Stop date: 11/18/12 17:08:00 magnesium sulfate 2 gm, 50 mL, IVPB No Longer Bubis [place] Route: IVPB, Active 2012 Medical Drug form: Center INJ, Q2H, Dosing Weight 109, kg, Total Dose = 6 gm, Start date: 10/19/12 16:00:00, Duration: 2 doses or times, Stop date: 10/19/12 18:00:00, For Mg = 1 - 1.4 mg/dLFor Mg = 1 - 1.4 mg/dL ropivacaine 800 320 mL, Rate: NERVE No Longer Henschel [facility] mg + Q-Pump 1 ea 8 ml/hr, BLOCK Active 2012 Medica l + Sodium Chloride Infuse over: C enter 0.9% (titrate) 50 hr, Dosing 320 mL Weight 109, kg, Route: NERVE BLOCK, Total Volume: 400 mL, Duration: 30 day, Stop date: 11/18/12 13:57:00, Replace Every: 24 hr Ancef 2 gm, Route: IVPB No Longer Kailey Eddie IVPB, ABXQ8H, Active 2012 Medical Dosing Weight Center 109, kg, Start date: 10/19/12 13:00:00, Duration: 3 doses or times, Stop date: 10/20/12 5:00:00 naloxone 0.04 mg, 0.1 IVP No Longer Agudelo Eddie mL, Route: Active 2012 Medical IVP, Drug Center form: INJ, Q2MIN, Dosing Weight 109, kg, PRN Narcotic Reversal, Start date: 10/19/12 12:41:00, Duration: 8 doses or times, Stop date: 10/20/12 0:00:00 ondansetron 4 mg, 2 mL, IVP No Longer Agudelo Moe as Route: IVP, Active 2012 Medical Drug form: Center INJ, ONCE, Dosing Weight 109, kg, PRN Nausea & Vomiting, Start date: 10/19/12 12:41:00 flumazenil 0.2 mg, 2 mL, IVP [place] Long[place] Route: IVP, Active 2012 Medical Drug form: Center INJ, PRN, Dosing Weight 109, kg, PRN Benzodiazepin e Reversal, Initial dose, Start date: 10/19/12 12:41:00, Duration: 5 doses or times, Stop date: 10/20/12 0:00:00 hydrALAZINE 5 mg, 0.25 IVP No Longer [place] mL, Route: Active 2012 Medical IVP, Drug Center form: INJ, Q5Min, Dosing Weight 109, kg, PRN Elevated BP, Start date: 10/19/12 12:41:00, Duration: 4 doses or times, Stop date: 10/20/12 0:00:00 hydromorphone 0.5 mg, 0.25 IVP No Longer Agudelo [facility] mL, Route: Active 2012 Medical IVP, Drug Center form: INJ, Q5Min, Dosing Weight 109, kg, PRN Pain Score 7-10, Start date: 10/19/12 12:41:00, Duration: 5 doses or times, Stop date: 10/20/12 0:00:00 fentanyl 25 microgram, IVP No Longer [place] 0.5 mL, 2012 Medical Route: IVP, [place] Drug form: INJ, Q5Min, Dosing Weight 109, kg, PRN Pain Score 4-6, Start date: 10/19/12 12:41:00, Duration: 4 doses or times, Stop date: 10/20/12 0:00:00 labetalol 5 mg, 1 mL, IVP No Longer Agudelo [facility] Route: IVP, 2012 Medical Drug form: Center INJ, Q5Min, Dosing Weight 109, kg, PRN Elevated BP, Start date: 10/19/12 12:41:00, Duration: 5 doses or times, Stop date: 10/20/12 0:00:00 magnesium sulfate 2 gm, 50 mL, IVPB No Longer Bubis [facility] Route: IVPB, 2012 Medical Drug form: Center INJ, Q2H, Dosing Weight 109, kg, Total Dose = 6 gm, Start date: 10/19/12 10:00:00, Duration: 3 doses or times, Stop date: 10/19/12 14:00:00, For Mg = 1 - 1.4 mg/dLFor Mg = 1 - 1.4 mg/dL cefazolin 2 gm, Route: IVPB No Longer Munz [place]oe[place] IVPB, ONCE, 2012 Medical Dosing Weight Center 109, kg, Start date: 10/19/12 9:47:00, Duration: 1 doses or times, Stop date: 10/19/12 9:47:00 magnesium sulfate 2 gm, 50 mL, IVPB No Longer Bubis [facility] Route: IVPB, 2012 Medical Drug form: Center INJ, Q2H, Dosing Weight 109, kg, Total Dose = 4 gm, Start date: 10/17/12 10:00:00, Duration: 2 doses or times, Stop date: 10/17/12 12:00:00, For Mg = 1.5 - 1.7 mg/dLFor Mg = 1.5 - 1.7 mg/dL Pneumovax 23 0.5 ml, IM No Longer SYSTEM Eddie Route: IM, Active 2012 Medical Drug Form: [place] INJ, Start date: 10/17/12 9:00:00, Stop date: 10/17/12 9:00:00 NS 1,000 mL 1,000 mL, IV No Longer Camcioglu Moe as Rate: 40 Active 2012 Medical ml/hr, Infuse Center over: 25 hr, Route: IV, Dosing Weight 109 kg, Total Volume: 1,000, Start date: 10/16/12 10:14:00, Duration: 30 day, Stop date: 11/15/12 10:13:00 OXYcodone 10 mg 10 mg, 1 tab, PO No Longer Bogomolny Eddie extended release Route: PO, Active 2012 [facility] aysha Drug form: [place] ERTAB, Q12H, Start date: 10/15/12 21:00:00, Duration: 30 day, Stop date: 11/14/12 9:00:00 Pneumovax 23 0.5 ml, IM No Longer SYSTEM Eddie Route: IM, Active 2012 Medical Drug Form: [place] INJ, Daily, Start date: 10/15/12 18:00:00, Duration: 1 doses or times, Stop date: 10/15/12 18:00:00 Visipaque 85 mL, Route: IVP No Longer [place] 320mg/ml IVP, Drug Active 2012 [facility], [facility], ONCALL, STAT, Start date: 10/15/12 3:31:00, Duration: 1 doses or times, Stop date: 10/16/12 0:00:00, Dose = 2.2ml/kg, Max dose = 100ml -- "To be infused by Radiology Staff ONLY"Dose = 2.2ml/kg, Max dose = 100ml -- "To be infused by Radiology Staff ONLY" [place]ul[place] 10/325 oral 1 tab, Route: PO No Longer Osuagwu Eddie tablet PO, Drug Active 2012 Medical Form: TAB, Center Dosing Weight 109, kg, Q4H, PRN as needed for pain, Start date: 10/15/12 3:04:00, Duration: 30 day, Stop date: 11/14/12 3:03:00 docusate sodium 100 mg, 1 PO No Longer [place] 100 mg oral cap, Route: Active 2012 Medical capsule PO, Drug Center form: CAP, Q12H, Start date: 10/14/12 21:00:00, Duration: 30 day, Stop date: 11/13/12 9:00:00 Insulin regular 2 unit, 0.02 SUB-Q No Longer Osuagwu [facility] mL, Route: Active 2012 Medical SUB-Q, Drug Center form: SOLN, TID-Before Meals, Dosing Weight 109, kg, PRN Blood Glucose Results, Start date: 10/14/12 12:59:00, Duration: 30 day, Stop date: 11/13/12 12:58:00 Dextrose 50% 25 gm, 50 mL, IVP No Longer Osuagwu [facility] Syringe Route: IVP, Active 2012 Medical Drug Form: [place] INJ, Dosing Weight 109, kg, PRN, PRN Blood Glucose Results, Start date: 10/14/12 12:59:00, Duration: 30 day, Stop date: 11/13/12 12:58:00 glucagon 1 mg, Route: IM No Longer Osuagwu [place] IM, Drug Active 2012 Medical form: [place] PDR/INJ, PRN, Dosing Weight 109, kg, PRN Blood Glucose Results, Start date: 10/14/12 12:59:00, Duration: 30 day, Stop date: 11/13/12 12:58:00 [place] 10/325 oral 1 tab, Route: PO No Longer Osuagwu [facility] tablet PO, Drug Active 2012 [facility], [facility], Q6H, Start date: 10/13/12 12:00:00, Duration: 30 day, Stop date: 11/12/12 6:00:00 lisinopril 30 mg, 3 tab, PO No Longer [place] Route: PO, Active 2012 Medical Drug form: [place] TAB, Daily, Dosing Weight 109, kg, Start date: 10/13/12 9:00:00, Stop date: 11/11/12 9:00:00 magnesium sulfate 2 gm, 50 mL, IVPB No Longer [place] Route: IVPB, Active 2012 Medical Drug form: [place] INJ, Q2H, Dosing Weight 109, kg, Start date: 10/13/12 8:00:00, Duration: 2 doses or times, Stop date: 10/13/12 10:00:00, For Mg = 1.5 - 1.7 mg/dLFor Mg = 1.5 - 1.7 mg/dL AMIODarone 200 mg, 1 PO No Longer [place] tab, Route: Active 2012 Medical PO, Drug Center form: TAB, Q12H, Dosing Weight 109, kg, Start date: 10/12/12 21:00:00, Duration: 30 day, Stop date: 11/11/12 9:00:00 AMIODarone 900 mg 482 mL, Rate: IV No Longer [place] + Dextrose 5% in Infuse as Active 2012 Medic al Water (Titrate) directed, [place] IV 482 mL Dosing Weight 109, kg, Route: IV, Total Volume: 500 mL, Stop date: 10/12/12 20:00:00, Replace Every: 24 hr Zofran 4 mg, 2 mL, IV No Longer [place] Route: IV, Active 2012 Medical Drug form: [place] INJ, Q8H, Dosing Weight 109, kg, PRN Nausea, Start date: 10/12/12 13:38:00, Duration: 30 day, Stop date: 11/11/12 13:37:00 Neutra-Phos oral 2 pkt, Route: NG No Longer Osuagwu [place] powder NG, Drug Active 2012 Medical Form: [place] PDR/REC, Dosing Weight 109, kg, Q6H, Start date: 10/12/12 12:00:00, Duration: 30 day, Stop date: 11/11/12 6:00:00 OXYcodone 5 mg 5 mg, 1 tab, NG No Longer [place] immediate release Route: NG, Active 2012 Med ical Drug form: Center TAB, Q6H, Dosing Weight 109, kg, PRN Pain, Start date: 10/12/12 10:11:00, Duration: 30 day, Stop date: 11/11/12 10:10:00 sodium 15 mmol, 15 IV No Longer [place] glycerophosphate mL, Route: Active 2012 Medi aysha + Sodium Chloride IV, Drug Cente r 0.9% IV 250 mL form: INJ, ONCE, Start date: 10/12/12 6:30:00, Stop date: 10/12/12 6:30:00 sodium phosphate 15 mmol, IVPB No Longer [place] Route: IVPB, Active 2012 Medical ONCE, Dosing Center Weight 109, kg, Start date: 10/12/12 5:39:00, Duration: 1 doses or times, Stop date: 10/12/12 5:39:00, For PO4 = 2 - 2.4 mg/dLFor PO4 = 2 - 2.4 mg/dL magnesium sulfate 2 gm, 50 mL, IVPB No Longer [place] Route: IVPB, Active 2012 Medical Drug form: Center INJ, ONCE, Dosing Weight 109, kg, Total dose = 2 gm, Start date: 10/12/12 5:39:00, Duration: 1 doses or times, Stop date: 10/12/12 5:39:00 metoprolol 25 mg, 1 tab, PO No Longer [place] tartrate Route: PO, Active 2012 Medical Drug form: [place] TAB, Q6H, Dosing Weight 109, kg, Start date: 10/12/12 0:00:00, Stop date: 11/10/12 18:00:00 hydrALAZINE 10 mg, 0.5 IV No Longer Yinka Moe as mL, Route: Active 2012 Medical IV, Drug Center form: INJ, Q4H, Dosing Weight 109, kg, PRN See Nurse's Notes, Start date: 10/11/12 17:05:00, Duration: 30 day, Stop date: 11/10/12 17:04:00, SBP > 160 Ancef 2 gm, 50 mL, IVPB No Longer Sandi [facility] Route: IVPB, Active 2012 Medical Drug form: Center INJ, ABXQ8H, Dosing Weight 109, kg, Start date: 10/11/12 15:00:00, Duration: 1 day, Stop date: 10/12/12 7:00:00 Lovenox 30 mg, 0.3 SUB-Q No Longer Les [facility] mL, Route: Active 2012 Medical SUB-Q, Drug Center form: INJ, Q12H, Dosing Weight 109, kg, Start date: 10/11/12 9:39:00, Duration: 30 day, Stop date: 11/10/12 4:00:00 lisinopril 10 mg, 1 tab, PO No Longer [place] Route: PO, Active 2012 Medical Drug form: Center TAB, Daily, Dosing Weight 109, kg, Start date: 10/11/12 9:00:00, Duration: 30 day, Stop date: 11/09/12 9:00:00 sodium 15 mmol, 15 IVPB No Longer Holihan [facility] glycerophosphate mL, Route: Active 2012 [facility] aysha + Sodium Chloride IVPB, ONCE, Ce nter 0.9% IV 250 mL Dosing Weight 109, kg, Start date: 10/11/12 6:25:00, Duration: 1 doses or times, Stop date: 10/11/12 6:25:00, For PO4 = 2 - 2.4 mg/dL; Administer when K level > 3.9mEq/L. 3.9mEq/L. Dextrose 50% 25 gm, 50 mL, IVP No Longer Osuagwu [facility] Syringe Route: IVP, Active 2012 Medical Drug Form: Center INJ, Dosing Weight 109, kg, PRN, PRN Abnormal Lab Result, Start date: 10/11/12 6:08:00, Duration: 30 day, Stop date: 11/10/12 6:07:00, For FSBG For FSBG < 40mg/dL Insulin regular 15 unit, 0.15 SUB-Q No Longer Osuagwu [facility] mL, Route: Active 2012 Medical SUB-Q, Drug Center form: SOLN, PRN, Dosing Weight 109, kg, PRN Abnormal Lab Result, Start date: 10/11/12 6:08:00, Duration: 30 day, Stop date: 11/10/12 6:07:00, for FSBG > 250mg/dL 250mg/dL sodium 15 mmol, 15 IVPB No Longer Holihan [facility] glycerophosphate mL, Route: Active 2012 [facility] aysha + Sodium Chloride IVPB, ONCE, Ce nter 0.9% IV 250 mL Dosing Weight 109, kg, Start date: 10/11/12 5:31:00, Duration: 1 doses or times, Stop date: 10/11/12 5:31:00, For PO4 = 2 - 2.4 mg/dL; Administer when K level > 3.9mEq/L. 3.9mEq/L. 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 250 mL use with [place] blood product administratio n, Dosing Weight 109, kg, Route: IV, Total Volume: 250, Duration: 30 day, Stop date: 11/10/12 2:10:00, Replace Every: 8 hr simethicone 20 mg, 0.3 PO No Longer [place] mL, Route: Active 2012 [facility] PO, Drug Center form: DROP, Q6H, Dosing Weight 109, kg, PRN Gas, Start date: 10/10/12 23:07:00, Duration: 30 day, Stop date: 11/09/12 23:06:00 Phenergan 12.5 mg, 0.5 IVPB No Longer [place] mL, Route: Active 2012 Medical IVPB, Drug Center form: INJ, ONCE, Dosing Weight 109, kg, PRN Nausea & Vomiting, Start date: 10/10/12 22:39:00, Stop date: 11/09/12 22:38:00 Zofran 4 mg, 2 mL, IVP No Longer [place] [facility] Route: IVP, Active 2012 Medical Drug form: [place] INJ, ONCE, Dosing Weight 109, kg, Start date: 10/10/12 22:39:00, Stop date: 10/10/12 22:39:00 Zofran 4 mg, 2 mL, IVP No Longer [place] [facility] Route: IVP, Active 2012 Medical Drug form: [place] INJ, ONCE, Dosing Weight 109, kg, Start date: 10/10/12 22:13:00, Stop date: 10/10/12 22:13:00 Protonix 40 mg, 1 tab, PO No Longer [place] Route: PO, Active 2012 Medical Drug form: [place] ECTAB, Q12H, Dosing Weight 109, kg, Start date: 10/10/12 21:00:00, Duration: 30 day, Stop date: 11/09/12 9:00:00 AMIODarone 900 mg 482 mL, Rate: IV No Longer Holihan Eddie + Dextrose 5% in Infuse as Active 2012 Medic al Water (Titrate) directed, [place] IV 482 mL Dosing Weight 109, kg, Route: IV, Total Volume: 500 mL, Duration: 30 day, Stop date: 11/09/12 17:40:00, Replace Every: 24 hr AMIODarone 150 mg 100 mL, Rate: IVPB No Longer [place] [facility] + Dextrose 5% in 600 ml/hr, Active 2012 Medi aysha [place] IV 100 mL Infuse over: [address] ter 10.3 min, Route: IVPB, Dosing Weight 109 kg, Total Volume: 103, Start date: 10/10/12 17:40:00, Duration: 1 doses or times, Stop date: 10/10/12 17:49:00 metoprolol 25 mg, 1 tab, NG No Longer [place] tartrate Route: NG, Active 2012 Medical Drug form: [place] TAB, Q8H, Dosing Weight 109, kg, Start date: 10/10/12 12:26:00, Duration: 30 day, Stop date: 11/09/12 8:00:00 tramadol 50 mg, 1 tab, PO No Longer [place] Route: PO, Active 2012 Medical Drug form: [place] TAB, Q6H, Dosing Weight 109, kg, Start date: 10/10/12 12:00:00, Stop date: 11/09/12 6:00:00 Dulcolax Laxative 10 mg, 1 SD No Longer [place] [facility] supp, Route: Active 2012 Medical SD, Drug Center form: SUPP, Daily, Start date: 10/10/12 9:15:00, Duration: 30 day, Stop date: 11/09/12 9:00:00 Trilipix 135 mg, 1 PO No Longer Osuagwu [facility] cap, Route: Active 2012 Medical PO, Drug Center form: CAP, Daily, Dosing Weight 109, kg, Start date: 10/10/12 9:00:00, Stop date: 11/08/12 9:00:00 metoprolol 5 mg/5 5 mg, Route: IV No Longer Zuhair [facility] ml INJ IV, ONCE, Active 2012 Medical Dosing Weight Center 109, kg, Start date: 10/10/12 5:17:00, Stop date: 10/10/12 5:17:00 metoprolol 5 mg/5 5 mg, 5 mL, IVP No Longer [place] [facility] ml INJ Route: IVP, Active 2012 Medical Drug form: Center INJ, ONCE, Dosing Weight 109, kg, Start date: 10/09/12 23:05:00, Stop date: 10/09/12 23:05:00 metoprolol 5 mg/5 5 mg, 5 mL, IV No Longer Zuhair [facility] ml INJ Route: IV, Active 2012 Medical Drug form: Center INJ, ONCE, Dosing Weight 109, kg, Start date: 10/09/12 22:20:00, Stop date: 10/09/12 22:20:00 atorvastatin 40 mg, 1 tab, PO No Longer Yinka [facility] Route: PO, Active 2012 Medical Drug form: Center TAB, Bedtime, Dosing Weight 109, kg, Start date: 10/09/12 21:00:00, Duration: 30 day, Stop date: 11/07/12 21:00:00 docusate sodium 100 mg, 10 PO No Longer [place] [facility] 150 mg/15 mL oral mL, Route: Active 2012 Med ical liquid PO, Drug Center form: LIQ, Q12H, Dosing Weight 109, kg, Start date: 10/09/12 21:00:00, Duration: 30 day, Stop date: 11/08/12 9:00:00 metoprolol 5 mg/5 5 mg, 5 mL, IV No Longer Zuhair [facility] ml INJ Route: IV, Active 2012 Medical Drug form: Center INJ, ONCE, Dosing Weight 109, kg, Start date: 10/09/12 20:54:00, Stop date: 10/09/12 20:54:00 pantoprazole 40 mg, Route: IVP No Longer [place]un [facility] IVP, Drug Active 2012 Medical form: INJ, Center Before Dinner, Dosing Weight 113.636, kg, Start date: 10/09/12 16:30:00, Duration: 30 day, Stop date: 11/07/12 16:30:00 metoprolol 5 mg/5 5 mg, 5 mL, IVP No Longer Sagun [facility] ml INJ Route: IVP, Active 2012 Medical Drug form: Center INJ, Q8H, Dosing Weight 109, kg, Start date: 10/09/12 16:00:00, Duration: 30 day, Stop date: 11/08/12 8:00:00 heparin 5,000 unit, 1 SUB-Q No Longer Les [facility] mL, Route: Active 2012 Medical SUB-Q, Drug Center form: INJ, Q8H, Dosing Weight 109, kg, Start date: 10/09/12 16:00:00, Duration: 30 day, Stop date: 11/08/12 8:00:00 Tylenol 975 mg, 3 PO No Longer [facility] tab, Route: Active 2012 Medical PO, Drug Center form: TAB, Q8H, Dosing Weight 109, kg, Start date: 10/09/12 16:00:00, Duration: 30 day, Stop date: 11/08/12 8:00:00 aspirin 325 mg, 1 PO No Longer [facility] tab, Route: Active 2012 Medical PO, Drug Center form: TAB, Daily, Dosing Weight 109, kg, Start date: 10/09/12 15:28:00, Duration: 30 day, Stop date: 11/08/12 9:00:00 bacitracin 1 appl, TOP No Longer [facility] [place] topical Route: TOP, Active 2012 Medical Daily, Drug Center form: OINT, PRN Wound Care, Start date: 10/09/12 14:35:00, Duration: 30 day, Stop date: 11/08/12 14:34:00 OXYcodone 5 mg 5 mg, 1 tab, PO No Longer [place] immediate release Route: PO, Active 2012 Med ical Drug form: Center TAB, Q6H, Dosing Weight 109, kg, PRN as needed for pain, Start date: 10/09/12 12:00:00, Stop date: 11/08/12 6:00:00 Multiple Vitamins 1 tab, PO, PO On Hold [facility] oral tablet Daily, 30 2012 Medical tab, Center Substitution Allowed, Maintenance, TAB pantoprazole 40 40 mg, 1 tab, PO No Longer [place] mg oral enteric PO, Daily, 30 Active 2012 Me dical coated tablet tab, Center Substitution Allowed, ECTAB vitamin E 400 800 IntlUnit, PO No Longer [facility] intl units oral 2 cap, PO, Active 2012 Medic al capsule Daily, 30 Center cap, Substitution Allowed, CAP omega-3 2,000 mg, 2 No Longer [facility] polyunsaturated cap, Active 2012 Medical fatty acids 1000 Substitution Ce nter mg oral capsule Allowed aspirin 325 mg 325 mg, 1 PO [place] Longer [place] tablet tab, PO, Active 2012 Medical Daily, 30 Center tab, Substitution Allowed, TAB aspirin Substitution Active [place] Allowed [facility] atorvastatin 40 40 mg, 1 tab, PO No Longer [place] mg oral tablet PO, Daily, 30 Active 2012 Med ical tab, Center Substitution Allowed, TAB pioglitazone 45 45 mg, 1 tab, PO No Longer [place] mg oral tablet PO, Daily, 30 Active 2012 Med ical tab, Center Substitution Allowed, TAB Trilipix 135 mg 135 mg, 1 PO On Hold [facility] oral delayed cap, PO, 2013 Medical release capsule Daily, 30 Center cap, Substitution Allowed, ECCAP metFORmin 1000 mg 1,000 mg, 1 PO No Longer [facility] oral tablet tab, PO, BID, Active 2012 Medica l 30 tab, Center Substitution Allowed metoprolol 50 mg, 1 tab, PO [place] Longer [place] tartrate 50 mg PO, BID, 60 Active 2012 Medic al oral tablet tab, Center Substitution Allowed, TAB lisinopril 10 mg 10 mg, 1 tab, PO No Longer [facility] oral tablet PO, Daily, 30 Active 2012 Medica l tab, Center Substitution Allowed, TAB bisacodyl 10 mg, 1 SD No Longer [place] [facility] supp, Route: Active 2012 Medical SD, Drug Center form: SUPP, ONCE, Dosing Weight 109, kg, PRN Constipation, Start date: 10/09/12 10:50:00 docusate 100 mg, SD No Longer [place] [facility] Route: SD, Active 2012 Medical Daily, Dosing Center Weight 109, kg, Start date: 10/09/12 9:00:00, Duration: 30 day, Stop date: 11/07/12 9:00:00 bisacodyl 10 mg, 2 tab, SD No Longer [place] Route: SD, Active 2012 Medical Drug form: [place] ECTAB, Daily, Dosing Weight 113.636, kg, Start date: 10/09/12 9:00:00, Duration: 30 day, Stop date: 11/07/12 9:00:00 pneumococcal 0.5 ml, IM No Longer [facility] 23-valent vaccine Route: IM, Active 2012 Med ical Drug Form: [place] INJ, Daily, Start date: 10/09/12 9:00:00, Duration: 1 doses or times, Stop date: 10/09/12 9:00:00 Dextrose 50% 25 gm, 50 mL, IVP No Longer [facility] Syringe Route: IVP, Active 2012 Medical Drug Form: [place] INJ, Dosing Weight 109, kg, PRN, PRN Abnormal Lab Result, Start date: 10/09/12 5:22:00, Duration: 30 day, Stop date: 11/08/12 5:21:00, For FSBG For FSBG < 40mg/dL Insulin regular 6 unit, 0.06 SUB-Q No Longer [place] 10/09/ [facility] mL, Route: Active 2012 Medical SUB-Q, Drug Center form: SOLN, PRN, Dosing Weight 109, kg, PRN Abnormal Lab Result, Start date: 10/09/12 5:22:00, Duration: 30 day, Stop date: 11/08/12 5:21:00, For FSBG 141mg/dL - 160mg/dLFor FSBG 141mg/dL - 160mg/dL Lovenox 30 mg, 0.3 SUB-Q No Longer [place] [facility] mL, Route: Active 2012 Medical SUB-Q, Drug Center form: INJ, [id number], Dosing Weight 109, kg, Start date: 10/09/12 4:00:00, Duration: 30 day, Stop date: 11/07/12 16:00:00 docusate 100 mg, 10 [place] No Longer [place] mL, Route: Active 2012 Medical NG, Drug Center form: LIQ, Q12H, Dosing Weight 113.636, kg, Start date: 10/08/12 21:00:00, Stop date: 11/07/12 9:00:00 magnesium sulfate 2 gm, Route: IVPB No Longer [place] [facility] IVPB, Drug Active 2012 Medical form: [place], Center ONCE, Dosing Weight 109, kg, Start date: 10/08/12 18:44:00, Duration: 1 doses or times, Stop date: 10/08/12 18:44:00, For Mg = 1.8 - 2 mg/dLFor Mg = 1.8 - 2 mg/dL magnesium sulfate 2 gm, 50 mL, IVPB No Longer [place] [facility] Route: IVPB, Active 2012 Medical Drug form: Center INJ, Q2H, Dosing Weight 113.636, kg, Start date: 10/08/12 18:00:00, Duration: 2 doses or times, Stop date: 10/08/12 20:00:00, For Mg = 1.5 - 1.7 mg/dLFor Mg = 1.5 - 1.7 mg/dL normal saline 1,000 mL, IV No Longer [place] [facility] as 0.9% IV 1,000 mL Rate: 75 Active 2012 Medica l ml/hr, Infuse Center over: 13.3 hr, Route: IV, Dosing Weight 113.636 kg, Total Volume: 1,000, Start date: 10/08/12 17:35:00, Duration: 30 day, Stop date: 11/07/12 17:34:00 lidocaine-epi 20 ml, Route: MISC No Longer [place] [id number] MISC, Drug Active 2012 Medical Form: SOLN, [place] Dosing Weight 113.636, kg, ONCE, Start date: 10/08/12 16:40:00, Stop date: 10/08/12 16:40:00 Saline Flush 0.9% 5 ml, Route: IVP No Longer [place] [facility] IVP, Drug Active 2012 Medical Form: INJ, [place] Dosing Weight 113.636, kg, PRN, PRN Line Flush, Start date: 10/08/12 16:01:00, Duration: 30 day, Stop date: 11/07/12 16:00:00 midazolam 50 mg IV, Start IV No Longer [place] date: Active 2012 [facility] 10/08/12 [place] 15:59:00, Duration: 30, 50 ml, 113.636 Sublimaze 1,000 IV, Start IV No Longer [place] microgram date: Active 2012 [facility] 10/08/12 [place] 15:58:00, Duration: 30, 20 ml, 113.636 FENTanyl 1000 mcg 1,000 IV No Longer [place] in 20 mL microgram, 20 Active 2012 Medical (titrate) IV mL, Rate: Center 1,000 microgram Titrate as directed, Dosing Weight 113.636, kg, Route: IV, Total Volume: 20 ml, Duration: 30 day, Stop date: 11/07/12 15:55:00, Replace Every: 24 hr Versed 50 mg in 50 mg, 50 mL, IV No Longer [place] [facility] NS 50 ml Rate: Titrate Active 2012 Medical (titrate) IV 50 as directed, [address] mg Dosing Weight 113.636, kg, Route: IV, Total Volume: 50 ml, Duration: 30 day, Stop date: 11/07/12 15:54:00, Replace Every: 24 hr FENTanyl 1000 mcg 1,000 IV No Longer [place] in 20 mL microgram, 20 Active 2012 Medical (titrate) IV mL, Rate: Center 1,000 microgram Titrate as directed, Dosing Weight 113.636, kg, Route: IV, Total Volume: 20 ml, Duration: 30 day, Stop date: 11/07/12 15:38:00, Replace Every: 24 hr Versed 50 mg in 50 mg, 50 mL, IV No Longer [place] [facility] NS 50 ml Rate: Titrate Active 2012 Medical (titrate) IV 50 as directed, [address] mg Dosing Weight 113.636, kg, Route: IV, Total Volume: 50 ml, Duration: 30 day, Stop date: 11/07/12 15:38:00, Replace Every: 24 hr Omnipaque 225 mL, IVP No Longer [facility] 350mg/ml Route: IVP, Active 2012 Medical Drug Form: [facility], Dosing Weight 113.636, kg, ONCALL, STAT, Start date: 10/08/12 14:24:00, Duration: 1 doses or times, Dose = 2.2ml/kg, Max dose = 150ml -- "To be infused by Radiology Staff ONLY"Dose = 2.2ml/kg, Max dose = 150ml -- "To be infused by Radiology Staff ONLY" fentanyl Route: IV, IV No Longer [facility] ONCE, Dosing Active 2012 Medical Weight Center 113.636, kg, Start date: 10/08/12 11:40:00, Stop date: 10/08/12 11:40:00 Versed 3 mg, Route: IVP No Longer [facility] IVP, ONCE, Active 2012 Medical Dosing Weight Center 113.636, kg, Priority: STAT, Start date: 10/08/12 11:40:00, Stop date: 10/08/12 11:40:00 Versed 50 mg in 50 mg, 50 mL, IV No Longer [place] [facility] NS 50 ml Rate: Titrate Active 2012 Medical (titrate) IV 50 as directed, [address] mg Dosing Weight 113.636, kg, Route: IV, Total Volume: 50 ml, Duration: 30 day, Stop date: 11/07/12 11:37:00, Replace Every: 24 hr FENTanyl 1000 mcg 1,000 IV No Longer [place] [facility] in 20 mL microgram, 20 Active 2012 Medical (titrate) IV mL, Rate: Center 1,000 microgram Titrate as directed, Dosing Weight 113.636, kg, Route: IV, Total Volume: 20 ml, Duration: 30 day, Stop date: 11/07/12 11:37:00, Replace Every: 24 hr succinylcholine 150 mg, IV No Longer [facility] Route: IV, Active 2012 Medical ONCE, Dosing Center Weight 113.636, kg, Start date: 10/08/12 11:03:00, Stop date: 10/08/12 11:03:00 etomidate 30 mg, Route: IV No Longer [facility] IV, ONCE, Active 2012 Medical Dosing Weight Center 113.636, kg, Start date: 10/08/12 11:02:00, Stop date: 10/08/12 11:02:00 Saline Flush 0.9% 5 ml, Route: IVP No Longer [facility] IVP, Drug Active 2012 Medical Form: INJ, Center kg, PRN, PRN Line Flush, Administer at least once every 12 hours, Start date: 10/08/12 10:22:00, Duration: 30 day, Stop date: 11/07/12 10:21:00 pneumococcal 0.5 ml, IM No Longer [facility] 23-valent vaccine Route: IM, Active 2011 Med ical Drug Form: Center INJ, Start date: 09/29/11 9:00:00, Stop date: 09/29/11 9:00:00 Allergies, Adverse Reactions, Alerts Substance Category Reaction Severity Reaction Status Date Comments S ource type Reported morphine drug [facility] Immunizations Immunization Date Site Status Last Comments Source Given Updated pneumococcal completed Armen song 23-valent [facility] 3 [facility] Left completed Armen DSOUZA [facility] 23-valent vaccine 3 deltoid pneumococcal Not Given Homar Rosa nohemi 23-valent vaccine 2 [facility] Results Order Name Results Value Reference Date Interpretation Comments Ariela rce Range CHEM PANEL Glucose Lvl 132 70 - 99 08/10 MH /2020 [place] CHEM PANEL BUN 115 7 - 22 08/10 MH /2020 [place] CHEM PANEL Creatinine 3.14 0.50 - 08/10 MH Lvl 1.40 /2020 [place] CHEM PANEL Sodium Lvl 133 135 - 145 08/10 MH /2019 [place] CHEM PANEL Potassium 3.4 3.5 - 5.1 08/10 MH Lvl /2020 [place] CHEM PANEL Chloride Lvl 94 95 - 109 08/10 MH /2020 [place] CHEM PANEL CO2 27 24 - 32 08/10 MH /2020 [place] CHEM PANEL Calcium Lvl 8.5 8.5 - 10.5 08/10 MH /2019 [place] CHEM PANEL AGAP 15.4 10.0 - 08/10 MH 20.0 /2019 [place] CHEM PANEL eGFR 19 08/10 Result MH Comment: The [facility] eGFR is calculated using the CKD-EPI formula. In most young, healthy individuals the eGFR will be >90 mL/min/1.73m2 . The eGFR declines with age. An eGFR of 60-89 may be normal in some populations, particularly the elderly, for whom the CKD-EPI formula has not been extensively validated. Use of the eGFR is not recommended in the following populations:< br/>
Tiffany viduals with unstable creatinine concentration s, including patients and those with serious co-morbid conditions.<b r/>
Patie nts with extremes in muscle mass or diet.

The data above are obtained from the National Kidney Disease Education Program (NKDEP) which additionally recommends that when the eGFR is used in patients with extremes of body mass index for purposes of drug dosing, the eGFR should be multiplied by the estimated BMI. HEMATOLOGY Segs 72.8 45.0 - 08/10 MH 75.0 /2020 [place] HEMATOLOGY Lymphocytes 13.0 20.0 - 08/10 MH 40.0 /2020 [place] HEMATOLOGY Monocytes 9.4 2.0 - 12.0 08/10 MH /2020 [place] HEMATOLOGY Eosinophils 3.6 0.0 - 4.0 08/10 MH /2020 [place] HEMATOLOGY Basophils 1.2 0.0 - 1.0 08/10 MH /2020 [place] HEMATOLOGY Neutrophils 6.0 1.5 - 8.1 08/10 MH # /2020 [place] HEMATOLOGY Lymphocytes 1.1 1.0 - 5.5 08/10 MH # /2020 [place] HEMATOLOGY Monocytes # 0.8 0.0 - 0.8 08/10 MH /2020 [place] HEMATOLOGY Eosinophils 0.3 0.0 - 0.5 08/10 MH # /2020 [place] HEMATOLOGY Basophils # 0.1 0.0 - 0.2 08/10 MH /2020 [place] HEMATOLOGY WBC 8.3 3.7 - 10.4 08/10 MH /2020 [place] HEMATOLOGY RBC 2.74 4.70 - 08/10 MH 6.10 /2020 [place] HEMATOLOGY Hgb 8.5 14.0 - 08/10 MH 18.0 /2019 [place] HEMATOLOGY Hct 24.7 42.0 - 08/10 MH 54.0 /2019 [place] HEMATOLOGY MCV 90.2 80.0 - 08/10 MH 94.0 /2019 [place] HEMATOLOGY MCH 31.0 27.0 - 08/10 MH 31.0 [place] HEMATOLOGY MCHC 34.3 32.0 - 08/10 MH 36.0 [place] HEMATOLOGY RDW 16.3 11.5 - 08/10 MH 14.5 /2019 [place] HEMATOLOGY Platelet 275 133 - 450 08/10 MH /2019 [place] HEMATOLOGY MPV 7.5 7.4 - 10.4 08/10 MH /2019 [place] CHEM PANEL Glucose Lvl 177 70 - 99 08/09 MH /2020 [place] CHEM PANEL BUN 114 7 - 22 08/09 MH /2019 [place] CHEM PANEL Creatinine 3.11 0.50 - 08/09 MH Lvl 1.40 [place] CHEM PANEL Sodium Lvl 133 135 - 145 08/09 MH /2020 [place] CHEM PANEL Potassium 3.4 3.5 - 5.1 08/09 MH Lvl /2020 [place] CHEM PANEL Chloride Lvl 98 95 - 109 08/09 MH /2020 [place] CHEM PANEL CO2 28 24 - 32 08/09 MH /2020 [place] CHEM PANEL AGAP 10.4 10.0 - 08/09 MH 20.0 /2019 [place] CHEM PANEL Calcium Lvl 8.5 8.5 - 10.5 08/09 MH /2020 [place] CHEM PANEL B/C Ratio 37 6 - 25 08/09 MH /2019 [place] CHEM PANEL Total 5.9 6.4 - 8.4 08/09 MH Protein /2020 [place] CHEM PANEL Albumin Lvl 1.5 3.5 - 5.0 08/ MH [place] CHEM PANEL Globulin 4.4 2.7 - 4.2 / [place] CHEM PANEL A/G Ratio 0.3 0.7 - 1.6 / MH [place] CHEM PANEL ALT 15 0 - 65 08/ MH /2019 [place] CHEM PANEL AST 24 0 - 37 08/ [place] CHEM PANEL Alk Phos <10 39 - 136 / [place] CHEM PANEL Bili Total 2.1 0.2 - 1.3 10/05 [place] CHEM PANEL eGFR 19 10/05 Result Comment: The [facility] eGFR is calculated using the CKD-EPI formula. In most young, healthy individuals the eGFR will be >90 mL/min/1.73m2 . The eGFR declines with age. An eGFR of 60-89 may be normal in some populations, particularly the elderly, for whom the CKD-EPI formula has not been extensively validated. Use of the eGFR is not recommended in the following populations:< br/>
Tiffany viduals with unstable creatinine concentration s, including patients and those with serious co-morbid conditions.<b r/>
Patie nts with extremes in muscle mass or diet.

The data above are obtained from the National Kidney Disease Education Program (NKDEP) which additionally recommends that when the eGFR is used in patients with extremes of body mass index for purposes of drug dosing, the eGFR should be multiplied by the estimated BMI. CHEM PANEL Magnesium 1.8 1.8 - 2.4 / MH Lvl /2019 [place] CHEM PANEL Phosphorus 4.1 2.5 - 4.5 10/05 [facility] HEMATOLOGY WBC 10.5 3.7 - 10.4 / [place] HEMATOLOGY RBC 2.97 4.70 - 08/ MH 6.10 [place] HEMATOLOGY Hgb 9.1 14.0 - 08/09 MH 18.0 [place] HEMATOLOGY Hct 26.8 42.0 - 08/09 MH 54.0 2020 [place] HEMATOLOGY MCV 90.3 80.0 - 08/09 MH 94.0 [place] HEMATOLOGY MCH 30.5 27.0 - 08/09 MH 31.0 /2020 [place] HEMATOLOGY MCHC 33.8 32.0 - 08/09 MH 36.0 [place] HEMATOLOGY RDW 16.3 11.5 - 08/09 MH 14.5 /2019 [place] HEMATOLOGY Platelet 273 133 - 450 08/ [facility] HEMATOLOGY MPV 8.0 7.4 - 10.4 08/ [place] HEMATOLOGY Segs 77.3 45.0 - 08/09 MH 75.0 [place] HEMATOLOGY Lymphocytes 11.4 20.0 - 08/09 MH 40.0 [place] HEMATOLOGY Monocytes 8.1 2.0 - 12.0 08/ MH [place] HEMATOLOGY Eosinophils 2.2 0.0 - 4.0 08/ [place] HEMATOLOGY Basophils 1.0 0.0 - 1.0 / [place] HEMATOLOGY Neutrophils 8.1 1.5 - 8.1 08/ MH # /2019 [place] HEMATOLOGY Lymphocytes 1.2 1.0 - 5.5 10/05 MH # [place] HEMATOLOGY Monocytes # 0.8 0.0 - 0.8 08/ [facility] HEMATOLOGY Eosinophils 0.2 0.0 - 0.5 08/ MH # [facility] Basophils # 0.1 0.0 - 0.2 10/05 [place] BLOOD BANK RBC product Product available 4 10/05 Resul [facility] RESULTS (10/05/19 11:35 PM) /2019 Comment: Sindhu and 10/05/2019 23:37 [id number]
Blood available, notified Rachele Benson RN at 10/05/2019 23:37 by meb. HEMATOLOGY WBC 11.5 3.7 - 10.4 10/05 [place] HEMATOLOGY RBC 2.57 4.70 - 08/ MH 6.10 [place] HEMATOLOGY Hgb 7.8 14.0 - 08/09 MH 18.0 [place] HEMATOLOGY Hct 23.1 42.0 - 08/09 MH 54.0 [place] HEMATOLOGY MCV 90.2 80.0 - 08/09 MH 94.0 [place] HEMATOLOGY MCH 30.2 27.0 - 08/09 MH 31.0 [place] HEMATOLOGY MCHC 33.5 32.0 - 08/09 MH 36.0 [place] HEMATOLOGY RDW 16.6 11.5 - 08/ MH 14.5 /2019 [place] HEMATOLOGY Platelet 271 133 - 450 08/09 MH /2019 [place] HEMATOLOGY MPV 7.8 7.4 - 10.4 08/ MH /2020 [place] HEMATOLOGY Segs 80.2 45.0 - 08/ MH 75.0 /2019 [place] HEMATOLOGY Lymphocytes 9.9 20.0 - 08/09 MH 40.0 /2019 [place] HEMATOLOGY Monocytes 7.0 2.0 - 12.0 08/09 MH /2020 [place] HEMATOLOGY Eosinophils 1.8 0.0 - 4.0 08/09 MH /2020 [place] HEMATOLOGY Basophils 1.1 0.0 - 1.0 08/09 MH /2019 [place] HEMATOLOGY Neutrophils 9.2 1.5 - 8.1 08/09 MH # /2019 [place] HEMATOLOGY Lymphocytes 1.1 1.0 - 5.5 08/09 MH # /2020 [place] HEMATOLOGY Monocytes # 0.8 0.0 - 0.8 08/09 MH /2019 [place] HEMATOLOGY Eosinophils 0.2 0.0 - 0.5 08/09 MH # /2020 [place] HEMATOLOGY Basophils # 0.1 0.0 - 0.2 08/09 MH /2019 [place] BLOOD BANK RBC product Product available 10/04 Resul t RESULTS (10/05/19 2:07 PM) /2019 Comment: Aliza hidalgo 10/05/2019 14:09 [id number]
Blood available, notified Jackie Juan at 10/05/2019 14:09_ by _LL. HEMATOLOGY Hgb 7.6 14.0 - 08 MH 18.0 [place] HEMATOLOGY Hct 22.4 42.0 - 08 MH 54.0 2020 [place] CARDIAC CK MB <1.0 0.5 - 3.6 08 MH ENZYMES /2019 [place] CARDIAC Total CK 18 12 - 191 10/04 ENZYMES /2019 [place] CARDIAC Troponin-I 0.27 0.00 - 0808 ENZYMES 0.40 /2019 [place] CARDIAC CK MB Index <5.6 0.0 - 2.5 08 ENZYMES /2019 [place] BLOOD BANK RBC product Product available 6 10/04 Resul t RESULTS (10/05/19 7:30 AM) /2019 Comment: Aliza hidalgo 10/05/2019 07:31 [id number]
Blood available, notified Jackie Juan at 10/05/2019 07:31_ by _LL. CARDIAC Troponin-I 0.28 0.00 - 08/08 MH ENZYMES 0.40 /2019 [place] CHEM PANEL Glucose Lvl 114 70 - 99 08/08 MH /2019 [place] CHEM PANEL BUN 106 7 - 22 08/08 MH /2019 [place] CHEM PANEL Creatinine 3.07 0.50 - 08/08 MH Lvl 1.40 /2019 [place] CHEM PANEL Sodium Lvl 136 135 - 145 08/08 MH /2019 [place] CHEM PANEL Potassium 3.5 3.5 - 5.1 08/08 MH Lvl /2019 [place] CHEM PANEL Chloride Lvl 101 95 - 109 08/08 MH /2019 [place] CHEM PANEL CO2 27 24 - 32 08/08 MH /2019 [place] CHEM PANEL AGAP 11.5 10.0 - 08/08 MH 20.0 /2019 [place] CHEM PANEL Calcium Lvl 7.9 8.5 - 10.5 08/08 MH /2019 [place] CHEM PANEL B/C Ratio 35 6 - 25 08/08 MH /2019 [place] CHEM PANEL Total 5.3 6.4 - 8.4 08/08 MH Protein /2019 [place] CHEM PANEL Albumin Lvl 1.4 3.5 - 5.0 08/08 MH /2019 [place] CHEM PANEL Globulin 3.9 2.7 - 4.2 08/08 MH /2019 [place] CHEM PANEL A/G Ratio 0.4 0.7 - 1.6 08/08 MH /2019 [place] CHEM PANEL ALT 17 0 - 65 08/08 MH /2019 [place] CHEM PANEL AST 23 0 - 37 08/08 MH /2020 [place] CHEM PANEL Alk Phos <10 39 - 136 08/08 MH /2019 [place] CHEM PANEL Bili Total 2.4 0.2 - 1.3 08/08 MH /2019 [place] CHEM PANEL eGFR 19 08/08 Result Comment: The [facility] eGFR is calculated using the CKD-EPI formula. In most young, healthy individuals the eGFR will be >90 mL/min/1.73m2 . The eGFR declines with age. An eGFR of 60-89 may be normal in some populations, particularly the elderly, for whom the CKD-EPI formula has not been extensively validated. Use of the eGFR is not recommended in the following populations:< br/>
Tiffany viduals with unstable creatinine concentration s, including patients and those with serious co-morbid conditions.<b r/>
Patie nts with extremes in muscle mass or diet.

The data above are obtained from the National Kidney Disease Education Program (NKDEP) which additionally recommends that when the eGFR is used in patients with extremes of body mass index for purposes of drug dosing, the eGFR should be multiplied by the estimated BMI. CHEM PANEL Magnesium 1.8 1.8 - 2.4 08/08 MH Lvl /2020 [place] HEMATOLOGY Segs 77.2 45.0 - 08/08 MH 75.0 /2020 [place] HEMATOLOGY Lymphocytes 13.1 20.0 - 08/08 MH 40.0 /2020 [place] HEMATOLOGY Monocytes 7.0 2.0 - 12.0 08/08 MH /2020 [place] HEMATOLOGY Eosinophils 1.5 0.0 - 4.0 08/08 MH /2020 [place] HEMATOLOGY Basophils 1.2 0.0 - 1.0 08/08 MH /2020 [place] HEMATOLOGY Neutrophils 7.2 1.5 - 8.1 08/08 MH # /2020 [place] HEMATOLOGY Lymphocytes 1.2 1.0 - 5.5 08/08 MH # /2020 [place] HEMATOLOGY Monocytes # 0.7 0.0 - 0.8 08/08 MH /2020 [place] HEMATOLOGY Eosinophils 0.1 0.0 - 0.5 08/08 MH # /2020 [place] HEMATOLOGY Basophils # 0.1 0.0 - 0.2 08/08 MH /2020 [place] HEMATOLOGY WBC 9.4 3.7 - 10.4 08/08 MH /2020 [place] HEMATOLOGY RBC 2.07 4.70 - 08/08 MH 6.10 /2020 [place] HEMATOLOGY MCV 92.5 80.0 - 08/08 MH 94.0 /2019 [facility] HEMATOLOGY MCH 31.4 27.0 - 08/08 MH 31.0 /2020 [facility] HEMATOLOGY MCHC 34.0 32.0 - 08/08 MH 36.0 /2020 [facility] HEMATOLOGY RDW 16.2 11.5 - 08/08 MH 14.5 /2020 [facility] HEMATOLOGY Platelet 262 133 - 450 08/08 MH /2019 [facility] HEMATOLOGY MPV 8.0 7.4 - 10.4 08/08 MH /2020 [facility] IMMUNOLOGY Coronavirus Not Detected Not 10/04 (COVID-19) (10/05/19 12:45 AM) Detected /2019 [place] CARDIAC Troponin-I 0.31 0.00 - 10/04 ENZYMES 0.40 [facility] CARDIAC BNP 738 <=100 10/04 ENZYMES pg/mL /2019 [facility] URINE AND UA Color Yellow Yellow 10/03 STOOL *NA* /2019 [facility] (10/04/19 1:39 PM) URINE AND UA Turbidity Clear Clear 10/03 STOOL (10/04/19 1:39 PM) /2019 [place] URINE AND UA Spec Grav 1.008 <=1.030 10/03 STOOL /2019 [facility] URINE AND UA pH 5.0 5.0 - 8.0 10/03 STOOL [facility] URINE AND UA Protein Negative Negative 10/03 STOOL mg/dL mg/dL /2019 [facility] URINE AND UA Glucose Negative Negative 10/03 STOOL mg/dL mg/dL [facility] URINE AND UA Ketones Negative Negative 10/03 STOOL mg/dL mg/dL /2019 [facility] URINE AND UA Bili Negative Negative 10/03 STOOL *NA* /2019 [facility] (10/04/19 1:39 PM) URINE AND UA Blood Negative Negative 10/03 STOOL (10/04/19 1:39 PM) /2019 [place] URINE AND UA Nitrite Negative Negative 10/03 STOOL (10/04/19 1:39 PM) [place] URINE AND UA Leuk Est Negative Negative 10/03 STOOL (10/04/19 1:39 PM) /2019 [place] URINE AND UA WBC 9 0 - 5 10/03 STOOL /2019 [place] URINE AND UA RBC 1 0 - 2 10/03 STOOL [facility] URINE AND UA Mucus Few /LPF None Seen 10/03 STOOL /LPF /2019 [facility] URINE AND UA Sq Epi None Seen 10/03 STOOL [facility] URINE AND UA <=1.0 0.1 - 1.0 10/03 STOOL Urobilinogen mg/dL [facility] URINE CHEM U Creatinine 23.30 10/03 [facility] URINE CHEM U Protein 13.6 10/03 [facility] URINE CHEM U Prot/Creat 0.58 10/03 [facility] URINE CHEM U Osmolality 334 300 - 800 08/07 MH [facility] URINE CHEM U Sodium 97 08/07 MH [facility] URINE CHEM U Potassium 19.2 08/07 MH [facility] URINE CHEM U Chloride 107 08/07 MH [facility] URINE AND Occult Bld Positive Negative 10/03 STOOL Stl *ABN* /2019 [facility] (10/04/19 1:16 PM) BLOOD BANK ABO/Rh A NEG 10/03 RESULTS /2019 [facility] BLOOD BANK Antibody Negative 10/03 RESULTS Scrn (10/04/19 12:14 PM) /2019 [facility] nd CHEM PANEL Albumin Lvl 1.4 3.5 - 5.0 08/07 MH /2019 [facility] CHEM PANEL ALT 16 0 - 65 08/07 MH [facility] CHEM PANEL AST 23 0 - 37 08/07 MH [facility] CHEM PANEL B/C Ratio 32 6 - 25 08/07 MH [facility] CHEM PANEL Total 5.5 6.4 - 8.4 08/07 MH Protein [facility] CHEM PANEL Alk Phos 13 39 - 136 08/07 MH [facility] CHEM PANEL Bili Total 2.1 0.2 - 1.3 08/07 MH /2019 [facility] CHEM PANEL Globulin 4.1 2.7 - 4.2 08/07 MH /2019 [facility] CHEM PANEL A/G Ratio 0.3 0.7 - 1.6 08/07 MH /2019 [facility] CHEM PANEL Lipase Lvl 379 73 - 393 08/07 MH [facility] CHEM PANEL Glucose Lvl 188 70 - 99 08/07 MH [facility] CHEM PANEL BUN 99 7 - 22 08/07 MH [facility] CHEM PANEL Creatinine 3.14 0.50 - 08/07 MH Lvl 1.40 /2020 [facility] CHEM PANEL Sodium Lvl 134 135 - 145 08/07 MH [facility] CHEM PANEL Potassium 3.9 3.5 - 5.1 08/07 MH Lvl /2019 [facility] CHEM PANEL Chloride Lvl 99 95 - 109 08/07 MH [facility] CHEM PANEL CO2 26 24 - 32 08/07 MH [facility] CHEM PANEL Calcium Lvl 8.5 8.5 - 10.5 08/07 MH /2019 [facility] CHEM PANEL AGAP 12.9 10.0 - 08/07 MH 20.0 /2019 [facility] CHEM PANEL eGFR 19 10/03 Result Comment: The [facility] eGFR is calculated using the CKD-EPI formula. In most young, healthy individuals the eGFR will be >90 mL/min/1.73m2 . The eGFR declines with age. An eGFR of 60-89 may be normal in some populations, particularly the elderly, for whom the CKD-EPI formula has not been extensively validated. Use of the eGFR is not recommended in the following populations:< br/>
Tiffany viduals with unstable creatinine concentration s, including patients and those with serious co-morbid conditions.<b r/>
Patie nts with extremes in muscle mass or diet.

The data above are obtained from the [employer] (NKDEP) which additionally recommends that when the eGFR is used in patients with extremes of body mass index for purposes of drug dosing, the eGFR should be multiplied by the estimated BMI. HEMATOLOGY PT 19.0 12.0 - 10/03 MH 14.7 /2019 [facility] HEMATOLOGY INR 1.58 0.85 - 08 MH 1.17 [facility] HEMATOLOGY PTT 37.2 22.9 - 10/03 MH 35.8 [facility] HEMATOLOGY WBC 4.7 3.7 - 10.4 09/09 /2019 [facility] HEMATOLOGY RBC 2.41 4.70 - 09/09 MH 6.10 [place] HEMATOLOGY Hgb 7.9 14.0 - 09/09 MH 18.0 [facility] HEMATOLOGY Hct 24.6 42.0 - 09/09 MH 54.0 [place] HEMATOLOGY MCV 101.8 80.0 - 09/09 MH 94.0 [place] HEMATOLOGY MCH 32.9 27.0 - 09/09 MH 31.0 /2019 [facility] HEMATOLOGY MCHC 32.3 32.0 - 09/09 MH 36.0 [place] HEMATOLOGY RDW 16.5 11.5 - 09/09 MH 14.5 [facility] HEMATOLOGY Platelet 285 133 - 450 09/09 /2019 [facility] HEMATOLOGY MPV 9.1 7.4 - 10.4 09/09 /2019 [facility] HEMATOLOGY Neutrophils 3.2 1.5 - 8.1 09/09 MH # /2019 [facility] HEMATOLOGY Lymphocytes 0.9 1.0 - 5.5 07/ MH # /2019 [facility] HEMATOLOGY Monocytes # 0.4 0.0 - 0.8 09/09 [facility] HEMATOLOGY Eosinophils 0.2 0.0 - 0.5 09/09 MH # /2019 [facility] HEMATOLOGY Segs 68.0 45.0 - 09/09 MH 75.0 [facility] HEMATOLOGY Bands 0.0 0.0 - 11.0 09/09 [facility] HEMATOLOGY Lymphocytes 19.0 20.0 - 09/09 MH 40.0 [facility] HEMATOLOGY Monocytes 9.0 2.0 - 12.0 09/09 [facility] HEMATOLOGY Eosinophils 4.0 0.0 - 4.0 09/09 [facility] HEMATOLOGY Atypical 0.0 <=0.0 % 09/09 Lymphs [facility] HEMATOLOGY RBC Morph Normal Normal 09/09 (09/10/19 9:15 AM) [facility] HEMATOLOGY Plt Morph Normal Normal 09/09 (09/10/19 9:15 AM) /2019 [facility] HEMATOLOGY Retic Auto 4.1 0.5 - 1.5 09/09 [place] BEDSIDE Gluc POC 136 70 - 99 11/15 HI <sup>1</sup>I [facility] nterpretive Medical TESTING Data: [place] Upper Reportable Limit: 200 mg/dL. BEDSIDE Gluc POC Notify 11/15 NA [facility] GLUCOSE Comment 1 RN/ [facility] TESTING Center BEDSIDE Gluc POC 122 70 - 99 11/15 HI <sup>2</sup>I [facility] GLUCOSE nterpretive Medical TESTING Data: [place] Reportable Limit: 200 mg/dL. BEDSIDE Gluc POC Notify 11/15 NA [facility] GLUCOSE Comment 1 RN/ /2012 Medical TESTING Center CHEMISTRY AGAP 12.2 10.0 - 11/15 Normal [place] . [facility] CHEMISTRY Calcium Lvl 8.8 8.5 - 10.5 11/15 [place] [facility] Center CHEMISTRY CO2 27 24 - 32 11/15 Normal [facility] CHEMISTRY eGFR 63 11/15 NA <sup>4</sup>R esult Medical Comment: The Center eGFR is calculated using the CKD-EPI formula. In most young, healthy individuals the eGFR will be >90 mL/min/1.73m2 . The eGFR declines with age. An eGFR of 60-89 may be normal in some populations, particularly the elderly, for whom the CKD-EPI formula has not been extensively validated. Use of the eGFR is not recommended in the following populations:& lt;br/>
I ndividuals with unstable creatinine concentration s, including patients and those with serious co-morbid conditions.<b r/>
Patie nts with extremes in muscle mass or diet.

The data above are obtained from the National Kidney Disease Education Program (NKDEP) which additionally recommends that when the eGFR is used in patients with extremes of body mass index for purposes of drug dosing, the eGFR should be multiplied by the estimated BMI. CHEMISTRY Creatinine 1.2 0.5 - 1.4 11/15 [facility] CHEMISTRY Chloride Lvl 103 95 - 109 11/15 Normal [facility] CHEMISTRY BUN 21 7 - 22 11/15 Normal [facility] CHEMISTRY Sodium Lvl 138 135 - 145 11/15 Normal [facility] CHEMISTRY Potassium 4.2 3.5 - 5.1 11/15 [facility] CHEMISTRY Glucose Lvl 146 70 - 99 11/15 [place] <sup>7</sup>I [place] nterpretive Medical Data: Adult Center reference range values reflect the clinical guidelines
of the [place] [employer]. BEDSIDE Gluc POC Notify 11/15 NA [facility] GLUCOSE Comment 1 RN/MD /2012 Medical TESTING Center BEDSIDE Gluc POC 115 70 - 99 11/15 HI <sup>3</sup>I [facility] GLUCOSE /2012 nterpretive Medical TESTING Data: Center Upper Reportable Limit: 200 mg/dL. CHEMISTRY AGAP 15.5 10.0 - 11/14 Normal [facility] 20.0 [facility] CHEMISTRY Calcium Lvl 8.9 8.5 - 10.5 11/14 [place]2012 [facility] CHEMISTRY eGFR 57 11/14 NA <sup>5</sup>R esult Medical Comment: The Center eGFR is calculated using the CKD-EPI formula. In most young, healthy individuals the eGFR will be >90 mL/min/1.73m2 . The eGFR declines with age. An eGFR of 60-89 may be normal in some populations, particularly the elderly, for whom the CKD-EPI formula has not been extensively validated. Use of the eGFR is not recommended in the following populations:& lt;br/>
I ndividuals with unstable creatinine concentration s, including patients and those with serious co-morbid conditions.<b r/>
Patie nts with extremes in muscle mass or diet.

The data above are obtained from the National Kidney Disease Education Program (NKDEP) which additionally recommends that when the eGFR is used in patients with extremes of body mass index for purposes of drug dosing, the eGFR should be multiplied by the estimated BMI. CHEMISTRY Glucose Lvl 137 70 - 99 11/14 HI <sup>8</sup>I [facility] nterpretive Medical Data: Adult Center reference range values reflect the clinical guidelines
of the [place] [employer]. CHEMISTRY BUN 26 7 - 22 11/14 HI [facility] CHEMISTRY Potassium 4.5 3.5 - 5.1 11/14 Normal [facility] CHEMISTRY Creatinine 1.3 0.5 - 1.4 11/14 Normal [facility] CHEMISTRY Chloride Lvl 102 95 - 109 11/14 Normal [facility] CHEMISTRY CO2 24 24 - 32 11/14 Normal [facility] CHEMISTRY Sodium Lvl 137 135 - 145 11/14 Normal [facility] CHEMISTRY U Osmolality 251 300 - 800 11/13 LOW [facility] CHEMISTRY U Sodium 28 11/13 NA <sup>12</sup> [facility] Interpretive Medical Data: No Center established reference ranges. CHEMISTRY U Creatinine 70.4 11/13 NA <sup>11</sup> Interpretive Medical Data: No Center established reference ranges. CHEMISTRY TSH 2.310 0.360 - 11/13 Normal [facility] 3.740 /2012 [facility] Center CHEMISTRY Vitamin B12 799 254 - 1320 11/13 Normal [facility] CHEMISTRY Cortisol 23.0 3.0 - 23.0 11/13 Normal <sup>10</sup> [facility] Interpretive Medical Data: CORD Center BLOOD: 5 - 17 ug/dL

PREMATURE INFANTS:
26-28 weeks, day 4 1 - 11 ug/dL
31- 35 weeks, day 4 2.5 - 9.1 ug/dL

FULL TERM INFANTS:
3 days 1.7 - 14 ug/dL
1-7 days 2 - 11 ug/dL
1-1 2 months 2.8 - 23 ug/dL

CHILDREN (1 - 16 years) 3 - 21 ug/dL

ADULT RANGE:
8A M 6.0 - 23.0 ug/dL
4PM 3.0 - 16.0 ug/dL CHEMISTRY CO2 20 24 - 32 11/13 LOW [facility] CHEMISTRY AGAP 19.9 10.0 - 11/13 Normal [facility] 20.0 [facility] CHEMISTRY eGFR 63 11/13 NA <sup>6</sup>R esult Medical Comment: The Center eGFR is calculated using the CKD-EPI formula. In most young, healthy individuals the eGFR will be >90 mL/min/1.73m2 . The eGFR declines with age. An eGFR of 60-89 may be normal in some populations, particularly the elderly, for whom the CKD-EPI formula has not been extensively validated. Use of the eGFR is not recommended in the following populations:& lt;br/>
I ndividuals with unstable creatinine concentration s, including patients and those with serious co-morbid conditions.<b r/>
Patie nts with extremes in muscle mass or diet.

The data above are obtained from the National Kidney Disease Education Program (NKDEP) which additionally recommends that when the eGFR is used in patients with extremes of body mass index for purposes of drug dosing, the eGFR should be multiplied by the estimated BMI. CHEMISTRY Sodium Lvl 136 135 - 145 11/13 Normal [facility] CHEMISTRY Calcium Lvl 8.9 8.5 - 10.5 11/13 Normal [facility] CHEMISTRY Potassium 4.9 3.5 - 5.1 11/13 Normal [facility] CHEMISTRY Creatinine 1.2 0.5 - 1.4 11/13 Normal [facility] CHEMISTRY Chloride Lvl 101 95 - 109 11/13 Normal Medical Center CHEMISTRY Glucose Lvl 117 70 - 99 11/13 HI <sup>9</sup>I [facility] nterpretive Medical Data: Adult Center reference range values reflect the clinical guidelines
of the [place] [employer]. CHEMISTRY BUN 23 7 - 22 11/13 [facility] Medical Center CHEMISTRY Magnesium 1.8 1.8 - 2.4 11/13 Normal [place] [facility] CHEMISTRY Phosphorus 4.9 2.5 - 4.5 11/13 [facility] Medical Center CHEMISTRY Osmolality 288 280 - 300 11/13 Normal Medical Center HEMATOLOGY Platelet 404 133 - 450 11/13 Normal [facility] HEMATOLOGY RDW 14.7 11.5 - 11/13 [facility] [place] 14.5 Medical Center HEMATOLOGY MCHC 32.7 32.0 - 11/13 Normal [place] 36.0 /2012 Medical Center HEMATOLOGY MPV 8.3 7.4 - 10.4 11/13 Normal [facility] HEMATOLOGY RBC 3.64 4.70 - 11/13 LOW [place] 6.10 /2012 Medical Center HEMATOLOGY Hct 34.4 42.0 - 11/13 LOW [place] 54.0 /2012 Medical Center HEMATOLOGY Hgb 11.3 14.0 - 11/13 LOW [place] 18.0 /2012 Medical Center HEMATOLOGY WBC 5.3 3.7 - 10.4 11/13 Normal [facility] HEMATOLOGY MCV 94.7 80.0 - 11/13 [facility] [place] 94.0 /2012 Medical Center HEMATOLOGY MCH 30.9 27.0 - 11/13 Normal [place] 31.0 /2012 Medical Center CHEMISTRY Phosphorus 5.3 2.5 - 4.5 11/12 [facility] Medical Center CHEMISTRY Magnesium 1.5 1.8 - 2.4 11/12 LOW [place] [facility] CHEMISTRY Troponin-I <0.02 0.00 - 11/08 Normal [place] 0.40 /2012 Medical Center CHEMISTRY Troponin-T <0.010 0.000 - 11/08 Normal [place] 0.100 /2012 [facility] Center CHEMISTRY Total CK 35 12 - 191 11/08 Normal [facility] CHEMISTRY Troponin-T <0.010 0.000 - 11/08 Normal [place] 0.100 /2012 Medical Center CHEMISTRY Troponin-I <0.02 0.00 - 11/08 Normal [place] 0.40 /2012 Medical Center CHEMISTRY Total CK 31 12 - 191 11/08 Normal Medical Center CHEMISTRY Magnesium 1.6 1.8 - 2.4 11/08 LOW [place] Lvl /2012 Medical Center CHEMISTRY Phosphorus 4.8 2.5 - 4.5 11/08 [facility] HEMATOLOGY Eosinophils 5.7 0.0 - 4.0 11/07 [place] /2012 [facility] HEMATOLOGY Segs-Bands # 4.1 1.5 - 8.1 09 Normal [place] /2012 [facility] Center HEMATOLOGY Basophils 0.5 0.0 - 1.0 11/07 Normal [facility] HEMATOLOGY Lymphocytes 2.7 1.0 - 5.5 11/07 [place] # /2012 [facility] HEMATOLOGY Monocytes # 0.6 0.0 - 0.8 11/07 [place] /2012 [facility] HEMATOLOGY Eosinophils 0.5 0.0 - 0.5 11/07 [place] # /2012 [facility] HEMATOLOGY Monocytes 8.1 2.0 - 12.0 11/07 Normal [facility] HEMATOLOGY Segs 52.1 45.0 - 09 Normal [place] 75.0 /2012 Medical Center HEMATOLOGY Lymphocytes 33.6 20.0 - 09 Normal [place] 40.0 /2012 Medical Center HEMATOLOGY Platelet 539 133 - 450 11/07 HI [facility] HEMATOLOGY RDW 15.0 11.5 - 09 HI [place] 14.5 /2012 Medical Center HEMATOLOGY MPV 8.1 7.4 - 10.4 11/07 Normal [facility] HEMATOLOGY MCH 31.0 27.0 - 09 Normal [place] 31.0 /2012 Medical Center HEMATOLOGY MCHC 32.8 32.0 - 09 Normal [place] 36.0 /2012 Medical Center HEMATOLOGY Hct 34.4 42.0 - 09 LOW [place] 54.0 /2012 Medical Center HEMATOLOGY MCV 94.4 80.0 - 09 HI [place] 94.0 /2012 Medical Center HEMATOLOGY WBC 7.9 3.7 - 10.4 09 Normal [facility] HEMATOLOGY Hgb 11.3 14.0 - 09 LOW [place] 18.0 /2012 Medical Center HEMATOLOGY RBC 3.64 4.70 - 09 LOW [place] 6.10 Medical Center HEMATOLOGY Platelet 463 133 - 450 09 [facility] /2012 Medical Center HEMATOLOGY MCHC 33.4 32.0 - 09 Normal [place] 36.0 /2012 Medical [place] HEMATOLOGY MPV 8.3 7.4 - 10.4 09 Normal [place] /2012 Medical [place] HEMATOLOGY RDW 14.7 11.5 - 09 [facility] [place] 14.5 /2012 Medical Center HEMATOLOGY RBC 3.28 4.70 - 09 LOW [place] 6.10 Medical [place] HEMATOLOGY WBC 6.8 3.7 - 10.4 09 Normal /2012 Medical [place] HEMATOLOGY MCH 31.0 27.0 - 09 Normal [place] 31.0 /2012 Medical Center HEMATOLOGY Hct 30.5 42.0 - 09 LOW [place] 54.0 /2012 Medical Center HEMATOLOGY Hgb 10.2 14.0 - [address] [facility] [place] 18.0 Medical Center HEMATOLOGY MCV 92.8 80.0 - 09 Normal [place] 94.0 /2012 Medical Center HEMATOLOGY Monocytes 10.1 2.0 - 12.0 09/ Normal [place] /2012 Medical [place] HEMATOLOGY Segs 50.5 45.0 - 09 Normal [place] 75.0 /2012 Medical Center HEMATOLOGY Lymphocytes 32.2 20.0 - 09 Normal [place] 40.0 /2012 [facility] Center HEMATOLOGY Lymphocytes 2.2 1.0 - 5.5 11/04 [place] # /2012 [facility] HEMATOLOGY Basophils 0.8 0.0 - 1.0 11/04 Normal Medical [place] HEMATOLOGY Monocytes # 0.7 0.0 - 0.8 09 [place] /2012 [facility] [place] HEMATOLOGY Segs-Bands # 3.4 1.5 - 8.1 09 Normal [facility] HEMATOLOGY Eosinophils 6.4 0.0 - 4.0 09 [facility] [place] /2012 Medical [place] HEMATOLOGY Basophils # 0.1 0.0 - 0.2 11/04 [place] [facility] [place] HEMATOLOGY Eosinophils 0.4 0.0 - 0.5 11/04 [place] # /2012 [facility] BLOOD BANK RBC product Product available 11/03 Normal [place] RESULTS (11/03/2012 09:30:25) /2012 [facility] BLOOD BANK Antibody Negative 11/03 Normal [facility] RESULTS Scrn (11/03/2012 09:30:00) [facility] BLOOD BANK ABO/Rh A NEG 11/03 Unknown [place] RESULTS /2012 [facility] HEMATOLOGY Eosinophils 5.9 0.0 - 4.0 11/03 [place] /2012 [facility] Center HEMATOLOGY Monocytes 10.8 2.0 - 12.0 11/03 Normal [place] /2012 [facility] HEMATOLOGY Lymphocytes 31.9 20.0 - 11/03 Normal [place] 40.0 /2012 [facility] HEMATOLOGY Segs-Bands # 3.2 1.5 - 8.1 11/03 Normal [place] [facility] HEMATOLOGY Lymphocytes 2.0 1.0 - 5.5 11/03 [place] # [facility] HEMATOLOGY Basophils 0.7 0.0 - 1.0 11/03 Normal [place] [facility] HEMATOLOGY Eosinophils 0.4 0.0 - 0.5 11/03 Normal [place] # [facility] HEMATOLOGY Monocytes # 0.7 0.0 - 0.8 11/03 [place] [facility] HEMATOLOGY Segs 50.7 45.0 - 11/03 Normal [place] 75.0 [facility] HEMATOLOGY Basophils # 0.1 0.0 - 0.2 10/30 [place] [facility] HEMATOLOGY Basophils # 0.1 0.0 - 0.2 10/27 [place] [facility] Center BEDSIDE Gluc POC 189 70 - 99 10/27 HI <sup>3</sup>I [facility] GLUCOSE [facility] nterpretive Medical TESTING Data: [place] Reportable Limit: 200 mg/dL. BEDSIDE Comment1 Notify 10/26 NA [facility] GLUCOSE RN/MD /2012 Medical TESTING Center BEDSIDE Gluc POC 168 70 - 99 10/26 HI <sup>4</sup>I [facility] GLUCOSE [facility] nterpretive Medical TESTING Data: [place] Reportable Limit: 200 mg/dL. BEDSIDE Gluc POC 169 70 - 99 10/26 HI <sup>5</sup>I [facility] GLUCOSE [facility] nterpretive Medical TESTING Data: [place] Upper Reportable Limit: 200 mg/dL. BEDSIDE Comment1 Notify 10/26 NA [facility] GLUCOSE RN/MD /2012 Medical TESTING Center BEDSIDE Comment1 Notify 10/26 NA [facility] GLUCOSE RN/MD /2012 Medical TESTING Center CHEMISTRY eGFR 70 10/26 NA <sup>6</sup>R esult Medical Comment: The Center eGFR is calculated using the CKD-EPI formula. In most young, healthy individuals the eGFR will be >90 mL/min/1.73m2 . The eGFR declines with age. An eGFR of 60-89 may be normal in some populations, particularly the elderly, for whom the CKD-EPI formula has not been extensively validated. Use of the eGFR is not recommended in the following populations:& lt;br/>
I ndividuals with unstable creatinine concentration s, including patients and those with serious co-morbid conditions.<b r/>
Patie nts with extremes in muscle mass or diet.

The data above are obtained from the National Kidney Disease Education Program (NKDEP) which additionally recommends that when the eGFR is used in patients with extremes of body mass index for purposes of drug dosing, the eGFR should be multiplied by the estimated BMI. CHEMISTRY Glucose Lvl 111 70 - 99 10/26 HI <sup>9</sup>I [facility] nterpretive Medical Data: Adult Center reference range values reflect the clinical guidelines
of the [place] [employer]. CHEMISTRY BUN 20 7 - 22 10/26 Normal [facility] CHEMISTRY CO2 27 24 - 32 10/26 Normal [facility] CHEMISTRY Sodium Lvl 137 135 - 145 10/26 Normal [facility] Center CHEMISTRY Creatinine 1.1 0.5 - 1.4 10/26 Normal [facility] Center CHEMISTRY Chloride Lvl 98 95 - 109 10/26 Normal [facility] Center CHEMISTRY Potassium 4.6 3.5 - 5.1 10/26 Normal [facility] Center CHEMISTRY Calcium Lvl 8.2 8.5 - 10.5 10/26 LOW [facility] CHEMISTRY AGAP 16.6 10.0 - 10/26 Normal [facility] 20.0 Medical Center CHEMISTRY Phosphorus 4.6 2.5 - 4.5 10/26 [facility] CHEMISTRY Magnesium 1.5 1.8 - 2.4 10/26 LOW [place] Lvl /2012 [facility] HEMATOLOGY MPV 8.1 7.4 - 10.4 10/26 Normal /2012 [facility] HEMATOLOGY Hgb 7.8 14.0 - 10/26 LOW [place] 18.0 [facility] HEMATOLOGY MCV 93.0 80.0 - 10/26 Normal [place] 94.0 /2012 [facility] HEMATOLOGY Hct 23.3 42.0 - 10/26 LOW [place] 54.0 /2012 [facility] HEMATOLOGY MCH 31.3 27.0 - 10/26 HI [place] 31.0 [facility] HEMATOLOGY MCHC 33.7 32.0 - 10/26 Normal [place] 36.0 /2012 [facility] HEMATOLOGY RDW 14.3 11.5 - 10/26 Normal [place] 14.5 [facility] HEMATOLOGY Platelet 445 133 - 450 10/26 Normal [facility] HEMATOLOGY RBC 2.50 4.70 - 10/26 LOW [place] 6.10 [facility] HEMATOLOGY WBC 5.6 3.7 - 10.4 10/26 Normal [facility] CHEMISTRY AGAP 10.6 10.0 - 10/24 Normal [place] 20.0 [facility] CHEMISTRY eGFR 79 10/24 NA <sup>7</sup>R esult Medical Comment: The Center eGFR is calculated using the CKD-EPI formula. In most young, healthy individuals the eGFR will be >90 mL/min/1.73m2 . The eGFR declines with age. An eGFR of 60-89 may be normal in some populations, particularly the elderly, for whom the CKD-EPI formula has not been extensively validated. Use of the eGFR is not recommended in the following populations:& lt;br/>
I ndividuals with unstable creatinine concentration s, including patients and those with serious co-morbid conditions.<b r/>
Patie nts with extremes in muscle mass or diet.

The data above are obtained from the National Kidney Disease Education Program (NKDEP) which additionally recommends that when the eGFR is used in patients with extremes of body mass index for purposes of drug dosing, the eGFR should be multiplied by the estimated BMI. CHEMISTRY Glucose Lvl 144 70 - 99 10/24 HI <sup>10</sup> MH [facility] [place] Interpretive Medical Data: Adult Center reference range values reflect the clinical guidelines
of the [place] [employer]. CHEMISTRY BUN 16 7 - 22 10/24 Normal [facility] CHEMISTRY Sodium Lvl 137 135 - 145 10/24 Normal [facility] CHEMISTRY Creatinine 1.0 0.5 - 1.4 10/24 Normal [facility] CHEMISTRY Calcium Lvl 9.1 8.5 - 10.5 10/24 Normal a [facility] CHEMISTRY Potassium 4.6 3.5 - 5.1 10/24 Normal [facility] Center CHEMISTRY Chloride Lvl 101 95 - 109 10/24 Normal [facility] CHEMISTRY CO2 30 24 - 32 10/24 Normal [facility] HEMATOLOGY Basophils # 0.2 0.0 - 0.2 10/24 [place] [facility] HEMATOLOGY Eosinophils 4.3 0.0 - 4.0 10/24 [place] [facility] HEMATOLOGY Monocytes 10.4 2.0 - 12.0 10/24 Normal [facility] HEMATOLOGY Basophils 2.4 0.0 - 1.0 10/24 HI [facility] HEMATOLOGY Segs-Bands # 4.1 1.5 - 8.1 10/24 Normal [place] [facility] HEMATOLOGY Monocytes # 0.8 0.0 - 0.8 10/24 [place] [facility] HEMATOLOGY Lymphocytes 2.0 1.0 - 5.5 10/24 [place] [facility] Center HEMATOLOGY Eosinophils 0.3 0.0 - 0.5 10/24 [place] [facility] HEMATOLOGY Segs 55.7 45.0 - 10/24 Normal [place] 75.0 Medical Center HEMATOLOGY Lymphocytes 27.2 20.0 - 10/24 Normal [place] 40.0 Medical Center HEMATOLOGY PTT 31.1 22.9 - 10/24 Normal <sup>25</sup> [place] 35.8 Interpretive Medical Data: Heparin Center Therapeutic Range: 57 - 92 [facility] HEMATOLOGY INR 1.24 0.85 - 10/24 [place] <sup>22</sup> [place] 1.17 Interpretive Medical Data: Center RECOMMENDED RANGES FOR PROTIME INR:
2.0-3.0 for most medical and surgical thromboemboli c states.
2.5-3.5 for artificial heart valves and recurrent embolism.<br/ >
INR SHOULD BE USED ONLY FOR PATIENTS ON STABLE ANTICOAGULANT THERAPY. HEMATOLOGY PT 15.5 12.0 - 10/24 [facility] [place] 14.7 /2012 [facility] HEMATOLOGY Platelet 562 133 - 450 10/24 [facility] /2012 [facility] HEMATOLOGY RDW 14.5 11.5 - 10/24 [facility] [place] 14.5 [facility] HEMATOLOGY MPV 8.1 7.4 - 10.4 10/24 Normal /2012 [facility] HEMATOLOGY RBC 2.91 4.70 - 10/[address] [facility] [place] 6.10 [facility] HEMATOLOGY Hct 27.5 42.0 - 10/[address] [facility] [place] 54.0 /2012 [facility] HEMATOLOGY Hgb 8.8 14.0 - 10/[address] [facility] [place] 18.0 /2012 [facility] HEMATOLOGY MCV 94.4 80.0 - 10/24 [facility] [place] 94.0 /2012 [facility] HEMATOLOGY MCH 30.4 27.0 - 10/24 [facility] [place] 31.0 /2012 [facility] HEMATOLOGY MCHC 32.2 32.0 - 10/24 Normal [place] 36.0 /2012 [facility] HEMATOLOGY WBC 7.4 3.7 - 10.4 10/24 Normal /2012 [facility] BLOOD BANK ABO/Rh A NEG 10/24 Unknown [facility] RESULTS /2012 [facility] BLOOD BANK Antibody Negative 10/24 [facility] RESULTS Scrn (10/24/2012 04:30:00) /2012 [facility] Segs 61.3 45.0 - 10/21 [facility] [place] 75.0 [facility] HEMATOLOGY Lymphocytes 22.3 20.0 - 10/21 [facility] [place] 40.0 /2012 [facility] HEMATOLOGY Monocytes 12.1 2.0 - 12.0 10/21 [facility] /2012 [facility] HEMATOLOGY Basophils # 0.1 0.0 - 0.2 10/21 [facility] [place] [facility] HEMATOLOGY Eosinophils 0.2 0.0 - 0.5 10/21 [place] # /2012 [facility] HEMATOLOGY Basophils 0.8 0.0 - 1.0 10/21 Normal /2012 [facility] HEMATOLOGY Segs-Bands # 4.2 1.5 - 8.1 10/21 Normal [place] /2012 [facility] HEMATOLOGY Lymphocytes 1.5 1.0 - 5.5 10/21 [place] # /2012 [facility] HEMATOLOGY Monocytes # 0.8 0.0 - 0.8 10/21 [place] /2012 [facility] HEMATOLOGY Eosinophils 3.5 0.0 - 4.0 10/21 [place] /2012 [facility] HEMATOLOGY MPV 8.6 7.4 - 10.4 10/21 Normal [facility] HEMATOLOGY WBC 6.9 3.7 - 10.4 10/21 Normal [facility] HEMATOLOGY MCH 30.9 27.0 - 10/21 Normal [place] 31.0 [facility] HEMATOLOGY MCV 94.1 80.0 - 10/21 [facility] [place] 94.0 [facility] HEMATOLOGY Hct 24.6 42.0 - 10/21 LOW [place] 54.0 [facility] HEMATOLOGY Hgb 8.1 14.0 - 10/[address] [facility] [place] 18.0 [facility] HEMATOLOGY RBC 2.62 4.70 - 10/21 LOW [place] 6.10 [facility] HEMATOLOGY RDW 14.5 11.5 - 10/21 Normal [place] 14.5 [facility] HEMATOLOGY MCHC 32.9 32.0 - 10/21 [facility] [place] 36.0 [facility] HEMATOLOGY Platelet 549 133 - 450 10/21 [facility] CHEMISTRY eGFR 63 10/20 NA <sup>8</sup>R esult Medical Comment: The Center eGFR is calculated using the CKD-EPI formula. In most young, healthy individuals the eGFR will be >90 mL/min/1.73m2 . The eGFR declines with age. An eGFR of 60-89 may be normal in some populations, particularly the elderly, for whom the CKD-EPI formula has not been extensively validated. Use of the eGFR is not recommended in the following populations:& lt;br/>
I ndividuals with unstable creatinine concentration s, including patients and those with serious co-morbid conditions.<b r/>
Patie nts with extremes in muscle mass or diet.

The data above are obtained from the National Kidney Disease Education Program (NKDEP) which additionally recommends that when the eGFR is used in patients with extremes of body mass index for purposes of drug dosing, the eGFR should be multiplied by the estimated BMI. CHEMISTRY Glucose Lvl 115 70 - 99 10/20 HI <sup>11</sup> [place] Interpretive Medical Data: Adult Center reference range values reflect the clinical guidelines
of the [place] [employer]. CHEMISTRY BUN 24 7 - 22 10/20 [facility] CHEMISTRY Creatinine 1.2 0.5 - 1.4 10/20 Normal [place] Lvl [facility] CHEMISTRY Sodium Lvl 138 135 - 145 08 Normal [facility] CHEMISTRY Potassium 4.7 3.5 - 5.1 10/20 Normal [place] Lvl [facility] CHEMISTRY Chloride Lvl 102 95 - 109 10/20 Normal [facility] CHEMISTRY AGAP 17.7 10.0 - 08 Normal [place] 20.0 [facility] CHEMISTRY CO2 23 24 - 32 08 LOW [facility] CHEMISTRY Calcium Lvl 8.3 8.5 - 10.5 10/[address] [facility] s [facility] CHEMISTRY Magnesium 2.2 1.8 - 2.4 10/20 Normal [place] l [facility] HEMATOLOGY Segs 73.4 45.0 - 08 Normal [place] 75.0 [facility] HEMATOLOGY Lymphocytes 14.1 20.0 - 08 LOW [place] 40.0 /2012 [facility] HEMATOLOGY Eosinophils 2.6 0.0 - 4.0 10/20 [place] /2012 [facility] HEMATOLOGY Monocytes 9.3 2.0 - 12.0 10/20 Normal [facility] HEMATOLOGY Eosinophils 0.2 0.0 - 0.5 10/20 [place] # /2012 [facility] HEMATOLOGY Segs-Bands # 6.6 1.5 - 8.1 10/20 Normal [place] [facility] HEMATOLOGY Basophils 0.6 0.0 - 1.0 10/20 Normal [facility] HEMATOLOGY Basophils # 0.1 0.0 - 0.2 10/20 [place] [facility] HEMATOLOGY Monocytes # 0.8 0.0 - 0.8 08/ [place] [facility] HEMATOLOGY Lymphocytes 1.3 1.0 - 5.5 10/20 [place] # /2012 [facility] CHEMISTRY POC V Glu 141 70 - 99 10/19 [facility] [place] CHEMISTRY POC V O2 Sat 60.0 40.0 - 10/19 Normal [place] 70.0 /2012 [facility] [place] CHEMISTRY POC V pH 7.38 7.28 - 10/19 Normal [facility] 7.42 [facility] CHEMISTRY POC V PO2 32 20 - 49 10/19 Normal [facility] CHEMISTRY POC V PCO2 47 38 - 52 10/19 Normal [facility] CHEMISTRY POC V HCO3 28 22 - 26 10/19 HI [facility] CHEMISTRY POC V BE 2 -2-2 - 2 10/19 Normal [facility] CHEMISTRY POC V Source RASHAAD 10/19 NA [facility] CHEMISTRY POC V Temp 37.0 10/19 NA [facility] CHEMISTRY POC V Ion Ca 1.21 1.05 - 10/19 Normal [facility] 1.25 [facility] CHEMISTRY POC V Hct 25.0 42.0 - 10/19 LOW [place] 54.0 [facility] CHEMISTRY POC V K 4.4 3.5 - 5.1 10/19 Normal [facility] CHEMISTRY POC V Na 131 135 - 145 10/19 LOW [facility] CHEMISTRY POC V LA 0.7 0.5 - 2.2 10/19 Normal [facility] CHEMISTRY Magnesium 1.4 1.8 - 2.4 10/19 LOW [facility] Lvl [facility] CHEMISTRY Phosphorus 4.7 2.5 - 4.5 10/19 [facility] HEMATOLOGY PTT 30.8 22.9 - 10/19 [place] <sup>[place]</sup> [place] 35.8 Interpretive Medical Data: [facility] Therapeutic Range: 57 - 92 [facility] HEMATOLOGY INR 1.26 0.85 - 10/19 [place] <sup>23</sup> [place] 1.17 Interpretive Medical Data: Center RECOMMENDED RANGES FOR PROTIME INR:
2.0-3.0 for most medical and surgical thromboemboli c states.
2.5-3.5 for artificial heart valves and recurrent embolism.<br/ >
INR SHOULD BE USED ONLY FOR PATIENTS ON STABLE ANTICOAGULANT THERAPY. HEMATOLOGY PT 16.0 12.0 - 10/19 [facility] [place] 14.7 [facility] BLOOD BANK ABO/Rh A NEG 10/19 Unknown [place] RESULTS /2012 [facility] Center BLOOD BANK Antibody Negative 10/19 Normal [facility] RESULTS Scrn (10/19/2012 05:15:00) /2012 [facility] Phosphorus 4.1 2.5 - 4.5 10/17 Normal Medical [place] IMMUNOLOGY [place]-HIV Negative Negative 10/16 [facility] 02/28 Ab *NA* /2012 Medical (10/16/2012 04:16:09) Ce nter HEMATOLOGY PTT 37.0 22.9 - 10/16 [place] <sup>27</sup> [place] 35.8 Interpretive Medical Data: [facility]arin Center Therapeutic Range: 57 - 92 Seconds HEMATOLOGY INR 1.30 0.85 - 10/16 [place] <sup>24</sup> [place] 1.17 Interpretive Medical Data: Center RECOMMENDED RANGES FOR PROTIME INR:
2.0-3.0 for most medical and surgical thromboemboli c states.
2.5-3.5 for artificial heart valves and recurrent embolism.<br/ >
INR SHOULD BE USED ONLY FOR PATIENTS ON STABLE ANTICOAGULANT THERAPY. HEMATOLOGY PT 16.4 12.0 - 10/16 [facility] [place] 14. Medical Center BLOOD BANK Antibody Negative 10/15 Normal [facility] RESULTS Scrn (10/15/2012 04:55:00) [facility] ABO/Rh A NEG 10/15 Unknown [facility] RESULTS [facility] CHEMISTRY ALT 67 0 - 65 10/15 [facility] Center CHEMISTRY Albumin Lvl 2.3 3.5 - 5.0 10/15 LOW [facility] CHEMISTRY Bili Total 0.9 0.2 - 1.3 10/15 Normal [facility] CHEMISTRY Bili Direct 0.3 0.0 - 0.3 10/15 Normal [facility] Center CHEMISTRY Alk Phos 28 39 - 136 10/15 LOW [facility] CHEMISTRY AST 58 0 - 37 10/15 [facility] CHEMISTRY Total 5.5 6.4 - 8.4 10/15 LOW [facility] Protein [facility] CHEMISTRY Bili 0.6 0.0 - 1.0 10/15 Normal [facility] Indirect /2012 [facility] Center CHEMISTRY Globulin 3.2 2.0 - 4.0 10/15 Normal [facility] CHEMISTRY A/G Ratio 0.7 0.7 - 1.6 10/15 Normal [facility] CHEMISTRY BNP 88 <=100 10/15 Normal <sup>18</sup> Interpretive Medical Data: Center Elevated results are in line with increasing severity of
congesti ve heart failure. Minor elevations between 100 and 300
may be seen with Myocardial Ischemia, Sodium retaining drugs,
and compensated/t reated heart failure. CHEMISTRY Bili 0.5 0.0 - 1.0 10/14 Normal Indirect [facility] CHEMISTRY Globulin 3.1 2.0 - 4.0 10/14 Normal [facility] CHEMISTRY A/G Ratio 0.7 0.7 - 1.6 10/14 Normal [facility] CHEMISTRY AST 82 0 - 37 10/14 HI [facility] CHEMISTRY Alk Phos 33 39 - 136 10/14 LOW [facility] CHEMISTRY Bili Direct 0.4 0.0 - 0.3 10/14 HI [facility] CHEMISTRY Bili Total 0.9 0.2 - 1.3 10/14 Normal [facility] CHEMISTRY Total 5.2 6.4 - 8.4 10/14 LOW Protein [facility] CHEMISTRY Albumin Lvl 2.1 3.5 - 5.0 10/14 LOW [facility] CHEMISTRY ALT 62 0 - 65 10/14 Normal [facility] CHEMISTRY BNP 115 <=100 10/14 HI <sup>19</sup> Interpretive Medical Data: Center Elevated results are in line with increasing severity of
congesti ve heart failure. Minor elevations between 100 and 300
may be seen with Myocardial Ischemia, Sodium retaining drugs,
and compensated/t reated heart failure. CHEMISTRY Ca Norm WB 1.13 1.05 - 10/14 Normal 03.23 [facility] CHEMISTRY Ca Ion WB 1.14 1.05 - 10/14 Normal 03.23 [facility] Center IMMUNOLOGY CRP, High 186.0 10/13 [place] <sup>28</sup> [place] Interpretive Medical Data: Low Center Risk: <1.0 mg/L
Aver age Risk: 1.0 - 3.0 mg/L
High Risk: >3.0 mg/L
Infl ammation: >10.0 mg/L IMMUNOLOGY Prealbumin 11.9 18.0 - 08 LOW [place] 45.0 [facility] [place] CHEMISTRY Ca Norm WB 1.10 1.05 - 10/12 Normal [place] 03.23 Medical Center CHEMISTRY Ca Ion WB 1.14 1.05 - 10/12 Normal [place] 03.23 [facility] CHEMISTRY Ca Norm WB 1.09 1.05 - 10/11 Normal [place] 03.23 [facility] CHEMISTRY Ca Ion WB 1.14 1. - 10/11 Normal [place] 03.23 [facility] CHEMISTRY POC A O2 Sat 100.0 95.0 - 10/11 Normal [place] 100.0 Medical [place] CHEMISTRY POC A BE -1 -2-2 - 2 10/11 Normal [facility] CHEMISTRY POC A Temp 37.0 10/11 NA [facility] CHEMISTRY POC A pH 7.31 7.35 - 10/11 LOW [place] 7 [facility] CHEMISTRY POC A PO2 224 80 - 100 10/11 [facility] CHEMISTRY POC A PCO2 52 35 - 45 10/11 [facility] CHEMISTRY POC A HCO3 26 22 - 26 10/11 Normal [facility] CHEMISTRY POC A Source ART 10/11 NA [facility] CHEMISTRY POC A Glu 114 70 - 99 10/11 [facility] CHEMISTRY POC A LA 0.8 0.5 - 2.2 10/11 Normal [facility] CHEMISTRY POC A Temp 37.0 10/11 NA [facility] CHEMISTRY POC A pH 7.26 7.35 - 10/11 LOW [place] 7 [facility] CHEMISTRY POC A Na 141 135 - 145 10/11 Normal [facility] CHEMISTRY POC A Ca Ion 1.25 1.05 - 10/11 Normal [place] 03.23 [facility] [place] CHEMISTRY POC A K 4.1 3.5 - 5.1 10/11 Normal [facility] CHEMISTRY POC A PO2 72 80 - 100 10/11 LOW [facility] CHEMISTRY POC A HCO3 27 22 - 26 10/11 HI [facility] [place] CHEMISTRY POC A PCO2 61 35 - 45 10/11 CRIT [facility] CHEMISTRY POC A BE 0 -2-2 - 2 10/11 Normal [facility] CHEMISTRY POC A Hct 26.0 42.0 - 10/11 LOW [place] 54.0 [facility] [place] CHEMISTRY POC A O2 Sat 92.0 95.0 - 10/[address] [facility] [place] 100.0 Medical [place] CHEMISTRY POC A Source ART 10/11 NA [facility] CHEMISTRY POC A BE 2 -2-2 - 2 10/11 Normal [facility] CHEMISTRY POC A HCO3 29 22 - 26 10/11 HI [facility] CHEMISTRY POC A PCO2 58 35 - 45 10/11 [facility] CHEMISTRY POC A K 3.8 3.5 - 5.1 10/11 Normal [facility] CHEMISTRY POC A Na 139 135 - 145 10/11 Normal [facility] CHEMISTRY POC A O2 Sat 94.0 95.0 - 10/[address] [facility] [place] 100.0 [facility] CHEMISTRY POC A Hct 23.0 42.0 - 10/11 LOW [place] 54.0 [facility] CHEMISTRY POC A Ca Ion 1.25 1.05 - 10/11 Normal [place] 1.25 [facility] CHEMISTRY POC A LA 0.6 0.5 - 2.2 10/11 Normal [facility] CHEMISTRY POC A Glu 121 70 - 99 10/11 HI [facility] CHEMISTRY POC A Source ART 10/11 NA [facility] CHEMISTRY POC A Temp 37.0 10/11 NA [facility] CHEMISTRY POC A PO2 79 80 - 100 10/11 LOW [facility] CHEMISTRY POC A pH 7.30 7.35 - 10/[address] [facility] [place] 7.45 [facility] BLOOD BANK RBC product Product available 10/11 Normal [place] RESULTS (10/11/2012 02:11:00) /2012 [facility] FFP product Product available 10/11 Normal [place] RESULTS (10/11/2012 02:11:00) /2012 [facility] INFECTIOUS C difficile Negative 2 Negative 10/10 Normal <sup>2</sup>I [facility] DISEASES DNA (10/10/2012 13:48:09) nterpreti ve Medical Data: [place] [employer] illum[employer]ene Clostridium difficile assay utilizes loop-mediated isothermal DNA amplification (LAMP) technology to detect a 204 bp region of the tcdA gene within the PaLoc gene segment present in all known toxigenic C. difficile strains.

The assay utilizes FDA cleared IVD reagents. Performance characteristi cs have been verified by the [facility] Laboratory within the [facility]. The Molecular Diagnostic Laboratory is authorized under the Clinical Laboratory Improvement Amendment of 1988 (CLIA-88) to perform high complexity testing. STOOL TESTS Occult Bld Negative Negative 10/10 Normal [facility] (10/10/2012 13:46:43) [facility] CHEMISTRY pO2 Art 99 80 - 100 10/09 Normal [facility] CHEMISTRY BE Art -3 -2-2 - 2 10/09 LOW [facility] CHEMISTRY HCO3 Art 23 22 - 26 10/09 Normal [facility] CHEMISTRY O2 Sat Art 97.4 95.0 - 10/09 Normal [facility] 100.0 [facility] CHEMISTRY pCO2 Art 40 35 - 45 10/09 Normal [facility] CHEMISTRY pH Art 7.36 7.35 - 10/09 Normal [facility] 7.45 /2012 [facility] CHEMISTRY Temp Art 37.0 10/09 NA [facility] CHEMISTRY CK MB 13.1 0.5 - 3.6 10/09 HI [facility] CHEMISTRY CK MB Index 0.3 0.0 - 2.5 10/09 Normal [facility] CHEMISTRY Total CK 4281 12 - 191 10/09 HI [facility] CHEMISTRY Troponin-I 1.30 0.00 - 10/09 [place] <sup>15</sup> [place] 0.40 /2012 Result Medical Comment: Center Critical Result(s) called to heather devine at _10/09/2012 15:02 by_carol. Read back OK. CHEMISTRY Troponin-T 0.111 0.000 - 10/09 [place] <sup>12</sup> [place] 0.100 Result Medical Comment: Center Critical Result(s) called to Elizabeth Hudson at 10/09/2012 14:56 by lwb . Read back OK. CHEMISTRY Troponin-T 0.134 0.000 - 10/09 [place] <sup>13</sup> [place] 0.100 /2012 Result Medical Comment: Center Critical Result(s) called to zander guillen at 10/09/2012 05:31 by cindy. Read back OK. CHEMISTRY Troponin-I 1.37 0.00 - 10/09 [place] <sup>16</sup> [place] 0.40 /2012 Result Medical Comment: Center Critical Result(s) called to _zander guillen at _10/09/2012 05:43 by_lg. Read back OK. CHEMISTRY CK MB Index 0.7 0.0 - 2.5 10/09 Normal [facility] CHEMISTRY CK MB 25.9 0.5 - 3.6 10/09 HI [facility] CHEMISTRY Troponin-T 0.155 0.000 - 10/09 [place] <sup>14</sup> [place] 0.100 /2012 Result Medical Comment: Center Critical Result(s) called to GIANCARLO JETER at 10/08/2012 22:40 by SONNY. Read back OK. CHEMISTRY Troponin-I 1.65 0.00 - 10/09 [place] <sup>17</sup> [place] 0.40 /2012 Result Medical Comment: Center Critical Result(s) called to zander guillen at 10/08/2012 22:50_ by_nvj. Read back OK. CHEMISTRY Total CK 3966 12 - 191 10/09 [facility] CHEMISTRY Lactic Acid 1.5 0.5 - 2.2 10/08 Normal [facility] Lvl [facility] BACTERIAL - MRSA by PCR Negative 1 10/08 Normal <sup>1</sup>I [facility] SEROLOGY (10/08/2012 16:05:00) /2012 nterpreti ve Medical Data: Center Interpretive Data: The [employer] Light[employer] MRSA assay is a qualitative test for the direct detection of nasal colonization with methicillin-r esistant Staphylococcu s aureus (MRSA) to aid in the prevention and control of MRSA infections in healthcare settings. A positive result does not indicate an infection or require treatment. A negative result does not exclude colonization or infection.

The polymerase chain reaction (PCR) assay detects a proprietary sequence indicative of the integration of the SCCmec cassette into the Staphylococcu s aureus chromosome, indicating the presence of MRSA DNA. The assay utilizes FDA cleared IVD reagents. Performance characteristi cs have been verified by the [facility] Laboratory within the [facility]. The Molecular Diagnostic Laboratory is authorized under the Clinical Laboratory Improvement Amendment of 1988 (CLIA-88) to perform high complexity testing. CHEMISTRY Bili Total 0.5 0.2 - 1.3 / [facility] CHEMISTRY AST 200 0 - 37 / [facility] CHEMISTRY Total 6.5 6.4 - 8.4 10/08 [facility] Protein [facility] CHEMISTRY Albumin Lvl 3.8 3.5 - 5.0 10/08 [facility] CHEMISTRY ALT 99 0 - 65 / [facility] CHEMISTRY Bili Direct 0.2 0.0 - 0.3 10/08 [facility] CHEMISTRY Alk Phos 42 39 - 136 10/08 [facility] CHEMISTRY A/G Ratio 1.4 0.7 - 1.6 10/08 [facility] CHEMISTRY Globulin 2.7 2.0 - 4.0 / [facility] CHEMISTRY Bili 0.3 0.0 - 1.0 10/08 [facility] Indirect [facility] CHEMISTRY Total CK 3027 12 - 191 10/08 [facility] CHEMISTRY CK MB 33.2 0.5 - 3.6 / [facility] CHEMISTRY CK MB Index 1.1 0.0 - 2.5 10/08 [facility] CHEMISTRY AST 195 0 - 37 / [facility] CHEMISTRY B/C Ratio 18 6 - 25 08/ [facility] CHEMISTRY Globulin 3.3 2.0 - 4.0 / [facility]2012 [facility] CHEMISTRY A/G Ratio 1.1 0.7 - 1.6 / [facility]2012 [facility] CHEMISTRY Total 7.0 6.4 - 8.4 / [facility] Protein [facility] CHEMISTRY Bili Total 0.5 0.2 - 1.3 / [facility] CHEMISTRY ALT 93 0 - 65 10/08 [facility] /2013 [facility] CHEMISTRY Albumin Lvl 3.7 3.5 - 5.0 10/08 Normal [facility] CHEMISTRY Alk Phos 44 39 - 136 10/08 [facility] HEMATOLOGY Fibrinogen 317 230 - 510 10/08 [facility] Lvl /2012 [facility] IMMUNOLOGY [place]-Hep C Negative Negative 10/08 [facility] Moe as Ab *NA* /2012 Medical (10/08/2012 16:05:00) Ce nter CHEMISTRY O2 Sat Art 90.6 95.0 - 10/08 [facility] 100.0 /2012 [facility] CHEMISTRY Temp Art 37.0 10/08 [facility] CHEMISTRY BE Art -5 -2-2 - 2 10/[address] [facility] CHEMISTRY pH Art 7.22 7.35 - 10/08 [facility] 7.45 [facility] CHEMISTRY pCO2 Art 58 35 - 45 10/08 [facility] CHEMISTRY pO2 Art 72 80 - 100 10/[address] [facility] CHEMISTRY HCO3 Art 24 22 - 26 10/08 [facility] CHEMISTRY BE Rashaad -7 -2-2 - 2 10/[address] [facility] CHEMISTRY O2 Sat Rashaad 40.2 40.0 - 10/08 [facility] 70.0 [facility] CHEMISTRY Temp Rashaad 37.0 10/08 [facility] CHEMISTRY pH Rashaad 7.27 7.28 - 10/08 [facility] 7.42 [facility] CHEMISTRY pCO2 Rashaad 44 38 - 52 10/08 [facility] CHEMISTRY pO2 Rashaad 27 20 - 49 10/08 [facility] CHEMISTRY HCO3 Rashaad 20 22 - 26 10/08 [facility] BLOOD BANK Path ABORh This 10/08 [facility] RESULTS patient Medical found to Center be A Rh-negativ e on ABO and Rh typing. He received with 2 doses of Rh-positiv e platelets during massive transfusio n. Since the D antigen is highly immunogeni c, the residual D-positive RBCs in the platelet product can lead to formation of anti-D in the patient's plasma. Only D-negative RBCs will be issued for the future transfusio n in case the patient generates anti-D antibody. The patients electronic medical record has been reviewed for relevant informatio n. I have reviewed the test results and concur with the resident's interpreta tion. CPT: 52440-RS BLOOD BANK BB Note Result Note 10/08 Normal [facility] RESULTS (10/08/2012 10:40:00) Sd dical Center CHEMISTRY Ethanol Lvl 21 10/08 Normal <sup>21</sup> [place] (10/08/2012 10:40:00) Interpreti ve Medical Data: Center Negative Range: <3 mg/dL
Tox ic Range: >250 mg/dL CHEMISTRY Etoh (%) 20 10/08 [place] <sup>[place]</sup> [place] (10/08/2012 10:40:00) Interpreti ve Medical Data: Center Negative Range: <0.003%
T oxic Range: >0.25% CHEMISTRY Lactic Acid 3.1 0.5 - 2.2 10/08 [facility] [place] Lvl /2012 [facility] HEMATOLOGY Estimated % 1.7 0.0 - 7.5 10/08 [place] [facility] HEMATOLOGY G-value 13.5 5.0 - 11.6 10/08 [facility] HEMATOLOGY [place] 0.5 10/08 NA [facility] HEMATOLOGY R-time 0.6 0.4 - 0.7 10/08 Normal [facility] HEMATOLOGY Angle 81 64 - 80 10/08 [facility] HEMATOLOGY Max Amp 73 52 - 71 10/08 [facility] HEMATOLOGY K-time 0.8 0.6 - 2.3 10/08 Normal [facility] HEMATOLOGY Rapid TEG Citrated 10/08 [facility] Sample Type [facility] HEMATOLOGY ACT (TEG) 105 86 - 118 10/08 Normal [facility] Pathology Reports No Data Provided for This Section Diagnostic Reports Report Value Date Source Chest 1view DX PROCEDURE INFORMATION: 10/05/2019 [facility] Exam: XR Chest, 1 View Exam date and time: 10/05/2019 10:04 AM Age: 73 years old Clinical indication: Pain; Additional info: Ches t pain/cfhest pain TECHNIQUE: Imaging protocol: XR of the chest Views: 1 view. COMPARISON: CHEST 1VIEW DX 10/04/2019 11:50 AM FINDINGS: Tubes, catheters and devices: Left chest pacemak er defibrillator device is demonstrated. Surgical clips overlie the mediastinum. Transpedicular screws and Castillo rods overlie the thoracic spine. Lungs: Lung volumes are decreased. Moderate degr ee bilateral perihilar and basilar interstitial alveolar pulmonary edema ve rsus infiltrates, pneumonia. Pulmonary opacities are most prominent within th e retrocardiac lower left chest. Progression of pulmonary opacities is dem onstrated. Pleural space: No pleural effusion or pneumothor ax. Heart/Mediastinum: Mediastinum and avis appear u nremarkable. Bones/joints: Midline median sternotomy wires are present. Diffusely decreased bone density. Mild to moderate generalized bony degenerative changes. Other findings: This study is limited by patient 's body habitus. IMPRESSION: 1. Findings most compatible with moderate pulmon winnie edema versus infiltrates, pneumonia. Progression. 2. Decreased lung volumes. Limited study. 3. Degenerative and postsurgical changes are demonstrated, as described above. Catherine Martinez MD On 10/05/2019 10:46:31; LG [id number] Retroperitoneal Complete PROCEDURE INFORMATION: 10/04/2019 [facility] US Exam: US Retroperitoneal; Complete; Kidneys and Bladder Exam date and time: 10/04/2019 7:31 PM Age: 73 years old Clinical indication: Abnormal findings; Abnormal lab test; Abnormal kidney function lab tests; Additional info: /oni TECHNIQUE: Imaging protocol: Real-time ultrasound of the re troperitoneum with image documentation. Complete exam focused on the kidn eys and bladder. COMPARISON: ABDOMEN/PELVIS WO IV CONTRAST CT 10/04/2019 2:46 P M FINDINGS: Right kidney: Mild cortical thinning. Me asures 10.2 cm in length. No echogenic foci to suggest stones. No hydronephrosis. Left kidney: Mild cortical thinning. Measures le koko 0.3 cm in length. No echogenic foci to suggest stones. No hydronephro sis Aorta: Normal caliber. Inferior vena cava: Patent. Other vasculature: Common iliac arteries not wel l seen. Bladder: Suboptimally distended with anechoic ur ine. No appreciable wall thickening. IMPRESSION: Mild cortical thinning of both kidneys. No hydro nephrosis or other acute findings. Fausto Dunn MD On 10/04/2019 20:26:01; VINCENT [id number] Abdomen/Pelvis wo IV Radiation Dose CTDIVOL = 0 (mGy): DLP = 951.77 (mGy-cm) 10/04/2019 [facility] contrast CT PROCEDURE INFORMATION: Exam: CT Abdomen And Pelvis Without Contrast Exam date and time: 10/04/2019 2:46 PM Age: 73 years old Clinical indication: Abdominal pain; Additional info: /abd pain/gi bleeding TECHNIQUE: Imaging protocol: Computed tomography of the abd omen and pelvis without contrast. Reconstructed images: Axial Sagittal and Coronal . Radiation optimization: All CT scans at this facility use at least one of these dose optimization techniques: automated exposure control; mA and/or kV adjustment per patient size (includes targeted e xams where dose is matched to clinical indication); or iterative reconstructio n. COMPARISON: CHEST ABDOMEN PELVIS W CONTRAST CT 10/08/2012 12: 08 PM RADIATION DOSE METRICS: Total DLP (mGy-cm): 951.77 FINDINGS: Tubes, catheters and devices: Partial visualizat ion of the cardiac pacemaker leads in the right heart. Lungs: Bibasilar subsegmental atelectasis/scarri ng. Pleural space: There is small left pleural effus ion. Heart: Heart is enlarged. Liver: There is a focus of calcification in the posterior aspect of hepatic segment 6/7, this could represent sequela of ghada or granulomatous disease. Gallbladder and bile ducts: Normal. No calcified stones. No thickened wall or pericholecystic fluid. No ductal dilation. Pancreas: Normal. No ductal dilation. Spleen: Normal. No splenomegaly. Adrenals: Normal. No mass. Kidneys and ureters: Unremarkable, No st ones or hydronephrosis. No focal renal lesions Stomach and bowel: Stomach i s unremarkable. Small bowel loops are unremarkable. Colonic loops are unremarkable. Appendix: No evidence of appendicitis. Intraperitoneal space: Unremarkable. No free air . No significant fluid collection. Vasculature: The abdominal aorta and its main br anches in the abdomen and pelvis are atherosclerotic. Lymph nodes: Unremarkable. No enlarged lymph nod es. Bladder: Unremarkable. Reproductive: Unremarkable as visualized. Bones/joints: Bilateral old rib fractures are no deondre. There is a nonunion fracture of the left 9th rib on the left from ol d fracture seen back in 10/08/2012. There multilevel degenerative change of the spine. Bilateral hardware seen in the proximal femurs. Soft tissues: Bilateral gynecomastia. IMPRESSION: 1. No acute abdominopelvic findings. 2. Cardiomegaly. 3. Bibasilar subsegmental lung atelectasis/scarr ing. Small left pleural effusion. 4. Old bilateral rib fractures. 5. Atherosclerotic calcifications in the abdominal aorta and its main branches in the abdomen and pelvis. Bacilio Yun MD On 10/04/2019 15:25:37; VR-S [id number] Chest 1view DX PROCEDURE INFORMATION: 10/04/2019 [facility] Exam: XR Chest, 1 View Exam date and time: 10/04/2019 11:50 AM Age: 73 years old Clinical indication: /abdominal pain TECHNIQUE: Imaging protocol: XR of the chest Views: 1 view. COMPARISON: CHEST ABDOMEN PELVIS W CONTRAST CT 10/08/2012 12: 08 PM FINDINGS: Lungs: No acute airspace consolidation. Pleural space: No pleural effusion. No pneumotho rax. Heart/Mediastinum: No cardiomegaly. Bones/joints: No acute fracture. IMPRESSION: Cardiomegaly. No acute cardiopulmonary process. Hemanth Elias MD On 10/04/2019 12:35:32; VR-SOPI [id number] Bone Marrow Bio/Aspr VR PROCEDURE INFORMATION: 09/10/2019 [facility] Exam: IR Diagnostic Bone Marrow Biopsies And Asp irations Exam date and time: 09/10/2019 10:09 AM Age: 73 years old Clinical indication: Anemia. TECHNIQUE: Imaging protocol: Diagnostic bone marrow biopsie s and aspirations. The interpreting physician was present and supervise d the procedure. CT guidance was provided. Radiation optimization: All CT scans at this facility use at least one of these dose optimization techniques: automated exposure control; mA and/or kV adjustment per patient size (includes targeted e xams where dose is matched to clinical indication); or iterative reconstructio n. COMPARISON: No relevant prior studies available. RADIATION DOSE METRICS: Total DLP (mGy-cm): 736.24 FINDINGS: Advanced practice providers: None CONSENT AND SEDATION INFO: Consent: The procedure, risks, benefits and alternatives of the procedure were discussed. Informed consent was obtained. Time out: Timeout was performed prior to the pro cedure. Level of sedation: I administered modera te sedation throughout this procedure. The patient was monitored and observed by a hosp ital nurse, an independent trained observer. The nurse pushed medications a t my direction and monitored the patient's level of consciousness and physiol ogical status throughout. Moderate sedation record is permanently stored i n the hospital information system. Medications for sedation: 2.0 mg of IV Versed an d 100 mcg of IV Fentanyl. Total intra-service sedation time (minutes): 7 m inutes. Procedure summary: The patient was placed in the prone posi tion in the CT scanner. Preliminary CT scans were obtained through the pelvis. A suitable left medial gluteal location was chosen. A generous portion of the left glute al region was prepped with ChloraPrep and draped. 1% lidocaine was used for local anesthesia. Using CT guidance, 11-gauge needle was advanced into the posterior left iliac bone. CT imaging confirmed proper positioning of the need le with the tip in the medullary bone. Approximately 1 cc of bone marro w was initially aspirated and given to pathology. The presence of spic ules was confirmed. 8 point cc of bone marrow was aspirated and given to pathology. The flow of marrow was somewhat sluggish but this was not a ?dry tap?. 3.0 cm lo ng core biopsy sample of bone marrow was obtained utilizing the guide needle. The core biopsy sample was placed in formalin container and appeared grossl y adequate. Pressure was applied at the puncture site with adequate hemos tasis. Procedural imaging: Post biopsy imaging demonstrates no hematoma. Complications: No immediate complications. Patient tolerated th e procedure well. IMPRESSION: Successful bone marrow biopsy. Final pathology r eport is pending. Etienne Jordan MD On 09/10/2019 11:25:21; VR-P [id number] Wrist complete ( min.3 EXAM: XR LEFT WRIST 3 VIEWS 10/31/2012 [facility]) Center DATE: 2012-10-31 16:20 INDICATION: Distal radius fracture COMPARISON: None available. TECHNIQUE: PA, lateral and oblique radiographs of the left wrist FINDINGS: A DVR plate and sc rews is identified spanning a subacute, intra- articular fracture of the distal radius, with the articular surface projecting in overall satisfactory alignment. There is no wi dening of the distal radioul javon joint. 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 Plate and screw fixation of the fifth proximal phalanx is partially visualized. IMPRESSION: Subacute, commi nuted distal radius fracture projects in satisfactory alignment in internal fixation. Fracture lines remain evident. Hand AP lateral oblique EXAM: XR RIGHT HAND 3 VIEWS 10/31/2012 [facility] DATE: 2012-10-31 1623 hours INDICATION: Fracture COMPARISON: None available TECHNIQUE: PA, lateral and oblique radiographs of the right hand FINDINGS: Subacute fractures of the base of the second middle phalanx, third and fourth proximal phalanges are identified along with chronic deformity of the third and fourth metacarpals and osteoarthro sis of the carpometacarpal j oints. Dystrophic calcification identified at the radial aspect of the fourth PIP and DIP joints. There is severe osteoarthrosis of the first CMC joint. IMPRESSION: Subacute fractur es of the base of the second middle phalanx, third and fourth proximal phalanges, along with chronic appearing deformity of the third and fourth metacarpals. Wrist complete ( min.3 EXAM: LEFT WRIST 3 VIEWS 10/25/2012 [facility]) Center DATE: Oct 25, 2012 01:18:00 PM INDICATION: Fracture. COMPARISON: None available. TECHNIQUE: PA, lateral and oblique radiographs of the left wrist FINDINGS: There has been ghada or distal pole radius plate and screw fixation for comminuted distal radius fractures. Fracture lines remain visible with resorption along the margins and satisfactory alignm ent. Mild bony callus format ion is identified without significant bridging. First carpometacarpal joint osteoarthritis noted. There is circumferential soft tissue edema and vascular calcifications. IMPRESSION: Early healing of distal radi us fracture without hardware complication apparent. Ankle 2 views EXAM: ANKLE 2 VIEWS 10/19/2012 [facility] Center DATE: Order Observation End Time: Oct 19, 2012 12:10:00 PM INDICATION: Pain. FX ANKLE TECHNIQUE : AP, lateral and oblique radiographs of the right ankle. COMPARISON: None available. FINDINGS: No right distal f ibular fracture and distal tibial fracture have been immobilized with semitubular plates and screws. It is presumed that the syndesmotic joint was evaluated intraoperatively. Alignment of the ankle mortise is within normal limits. Old plate in the base of the first metatarsal in the periphery of image. IMPRESSION: Satisfactory im mobilization of the right lateral and medial malleolar fracture subsequent to ORIF. Chest 1view EXAM : XR Chest 1view, 10/14/2012 [facility] DATE : Oct 14, 2012 01:50:00 AM. Center COMPARISON : 10/13/2012. CLINICAL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
--- OUTSIDE RECORDS SUMMARY | 2019-11-08 17:03 | XMS REPORT | Continuity of Care Document ---
:[address] [facility] t Address [address] [place] [address] Care Team Providers Name Role Phone Gavin Roman MD Primary Care Physician Abel ARTIS Attending Clinician Doctor Unassigned, Name Attending Clinician Unavailable ABEL Attending Clinician Unavailable Lorenzo Attending Clinician Anne Mills Attending Clinician Unavailable SHIRA PACHECO Attending Clinician Unavailable KATIE HARP Attending Clinician Unavailable Kartik FORBES Attending Clinician Unavailable ZHANG Admitting Clinician Unavailable Lorenzo Admitting Clinician SHIRA PACHECO Admitting Clinician Unavailable KATIE HARP Admitting Clinician Unavailable Payers Payer Name Policy Type Policy Number Effective Date Expiration Date S ource Problems Condition Condition Condition Status Onset Resolution Last Treating Co mments Source Name Details Category Date Date Treatment Clinician Date HYPOTENSIO Diagnosis Active 2019-10-04 Memoria N 10-03 12:46:00 l 00:00: Aric HYPOTENSIO 00 N Active 10/04/2019 [facility] ACUTE GI Diagnosis Active 2019-10-12 M emoria BLEEDING, 10-03 21:38:00 l NSTEMI, ACUTE GI 00:00: Gabriela nn 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 Diagnosis Active 2019-10-09 Me moria CKD 09-04 14:07:00 l ANEMIA. 00:00: Aric CKD 00 Active 09/05/2019 [facility] Unstable Unstable Disease [facility] Iron Iron Disease Active 2017-02 [place] deficiency deficiency 0-04 Me thodi anemia anemia 00:00: st 00 Anemia Anemia Disease Active 2017-02 [place] 0-04 [facility] st 00 Cardiomyop Cardiomyop Disease Active [facility] athy athy 5-24 [facility] Dilated Dilated Disease Active [facility] cardiomyop cardiomyop -24 Lisette kes - athy athy 00:00: Medical 00 Center Syncope Syncope Disease Active 2012-[address] [facility] and and 1-04 [facility] - collapse collapse 00:[facility]: Medica l 00 Center R Diagnosis Active 2012-11-17 Mem oria FIBULA/BIM 10-26 21:43:00 l ALLEOLAR R 00:00: Aric FRACTURE: FIBULA/BIM 00 S/P ORIF ALLEOLAR FRACTURE: S/P ORIF Active 10/26/2012 [facility] RESP Diagnosis Active 2013-03-07 Mem oria FAILURE, 10-08 14:49:00 l RT FEMUR RESP 00:00: [place] FX, RESIDENTIAL FAILURE, 00 RT FEMUR FX, RESIDENTIAL Active 10/08/2012 [facility] DONNIE Diagnosis Active 2012-11-07 Memoria BILLING 10-08 18:11:00 l ONLY 00:00: Aric LF#[id number] DONNIE 00 BILLING ONLY LF#[id number] Active 10/08/2012 [facility] Colon Colon Disease Active [place] polyp polyp [facility]i [facility] Gastric Gastric Disease Active [place] ulcer ulcer Methodi [facility] GERD GERD Disease Active [place] (gastroeso (gastroeso Me thodi phageal phageal st reflux reflux disease) disease) Coronary Problem Resolve 2012-11-17 Me moria bypass d 20:38:43 l surgery Coronary Gabriela nn bypass surgery Resolved Problem 11/17/2012 [facility] Diabetes Problem Resolve 2012-11-17 Me moria d 20:38:43 l Diabetes Arben n Resolved Problem 11/17/2012 [facility] dm Problem Resolve 2012-11-17 Yoav yoselin d 20:38:43 l dm [place] Resolved Problem 11/17/2012 [facility] Hypertensi Problem Resolve 2012-11-17 Memoria on d 20:38:43 l [place] Hypertensi on Resolved Problem 11/17/2012 [facility] Coronary Problem Resolve 2019-10-09 Me moria bypass d 22:14:51 l surgery(Co Coronary He rmann nfirmed) bypass surgery(Co nfirmed) Resolved Problem 10/09/2019 [facility] Diabetes Problem Resolve 2019-10-09 Me moria mellitus d 22:14:51 l (disorder) Diabetes He rmann mellitus (disorder) Resolved Problem 10/09/2019 [facility] dm Problem Resolve 2019-10-09 Yoav yoselin (qualifier d 22:14:51 l value) dm [place] (qualifier value) Resolved Problem 10/09/2019 [facility] Essential Problem Resolve 2019-10-09 M emoria hypertensi d 22:14:51 l on Aric (disorder) Essential hypertensi on (disorder) Resolved Problem 10/09/2019 [facility] Fracture Problem Active 2012-11-17 Mem oria 20:38:43 l Fracture Arben n Active Problem 11/17/2012 [facility] Pain Problem Active 2012-11-17 Memor ia 20:38:43 l Pain Aric Active Problem 11/17/2012 [facility] Pain Problem Active 2019-10-09 Memor ia (finding) 22:14:51 l Pain Aric (finding) Active Problem 10/09/2019 [facility] ANEMIA IN Diagnosis Active 2019-10-09 Memoria CHRONIC 14:07:00 l KIDNEY ANEMIA [place] DISEASE IN CHRONIC KIDNEY DISEASE Active [facility] GASTROINTE Diagnosis Active 2019-10-12 Memoria STINAL 21:38:00 l HEMORRHAGE Arben n , GASTROINTE UNSPECIFIE STINAL D HEMORRHAGE , UNSPECIFIE D Active [facility] NON-ST Diagnosis Active 2019-10-12 Mem oria ELEVATION 21:38:00 l (NSTEMI) NON-ST Arben n MYOCARDIAL ELEVATION INF (NSTEMI) MYOCARDIAL INF Active [facility] ACUTE Diagnosis Active 2019-10-12 Mem oria KIDNEY 21:38:00 l FAILURE, ACUTE Aric UNSPECIFIE KIDNEY D FAILURE, UNSPECIFIE D Active [facility] ACUTE Diagnosis Active 2013-03-07 Mem oria RESPIRATOR 14:49:00 l Y FAILUR ACUTE [place] RESPIRATOR Y FAILUR Active [facility] FX FIBULA Diagnosis Active 2012-11-17 Memoria NOS-CLOSED 21:43:00 l FX [place] FIBULA NOS-CLOSED Active [facility] Allergies, Adverse Reactions, Alerts Allergy Allergy Status Severity Reaction(s) Onset Inactive Treating Comm ents Source Name Type Date Date Clinician morphine morphine Active Manishori a l [place] Social History Social Habit Start Date Stop Date Quantity Comments Source Sex Assigned At [facility] Alcohol intake 2017-12-29 2017-12-29 Current drinker of [place] byrnes Bahai 00:00:00 00:00:00 alcohol (finding) Alcohol Comment 2012-12-31 2012-12-[address] [facility] 00:00:00 00:00:00 [facility] Smoking Status Start Date Stop Date Source Social History [facility] Medications Ordered Filled Start Stop Current Ordering Indication Dosage Frequency Signature Comments Components Source Medication Medication Date Date Medication? Clinician (SIG) Name Name bumetanide 2020-0 Yes 2 mg = 1 Mem oria 2 mg oral 8-10 tab, PO, l tablet 21:59: Q8H, Hold Arben n 00 for systolic blood pressure less than 100 or heart rate less than 60, # 30 tab, 0 Refill(s), Pharmacy: [id number], 175.26, cm, 10/04/19 20:03:00 CDT, Height, 123, kg, 10/04/19 20:03:00 CDT, Weight isosorbide 2020-0 Yes 60 mg = 1 Me moria mononitrate 8-10 tab, PO, l 60 mg oral 21:59: QAM, Hold He rmann tablet, 00 for extended systolic release blood pressure less than 100 or heart rate less than 60, # 90 tab, 1 Refill(s), Pharmacy: [facility] #[id number], 175.26, cm, 10/04/19 20:03:00 CDT, Height, 123, kg, 10/04/19 20:03:00 CDT, Weight Tylenol 2019-0 No Notes: Do Memor ia 8-10 not exceed l 17:00: 4 gm/day. (Same as: Tylenol) albumin No Notes: Manishoria human 25% 10-06 LOT#: l intravenous 13:59: Aric solution 00 ___ Mfg: WASTE: F/P - Red; E -Red (Same as: Albuminar) "blood product derivative " Potassium No Notes: Memori a Chloride 10-05 (Same as: l 15:13: K-Dur 20) "Do Not Crush" Give with food and full glass of water For patients unable to swallow tablet, dissolve in one half glass of water. Allow about 2 minutes for the tablets to disintegra te. Stir before giving to prepare slurry and administer . Please exclude Patient s with feeding tube less than 14 [place]ian (Dobhoff, J-tube etc) and pediatric and patients. metolazone No Notes: Memor ia 10-05 (Same as: l 15:05: Zaroxolyn) Vitamin D3 0 No Notes: Memor ia 2000 intl 10-05 Same as : l units oral 14:00: Vitamin D3 H ermann tablet Fenofibrate No 135 mg, 1 M emoria 10-05 cap, l 14:00: Route: PO, Drug form: CAP, Daily, Dosing Weight 123, kg, Start date: 10/06/19 9:00:00 CDT, Duration: 30 day, Stop date: 11/04/19 9:00:00 CDT fenofibrate No Notes: Yoav yoselin 10-05 (Same as: l 14:00: Tricor) Aspirin 0 No Notes: Do Memor ia 10-05 not crush l 14:00: or chew. (Same As: Ecotrin) isosorbide No Notes: Memor ia mononitrate 10-05 (Same l extended 14:00: as:Imdur) Herm billie release "Do Not Crush" Take on empty stomach/ full glass of water. Do not crush Metolazone 0 No Notes: Memor ia 5 MG Oral 10-05 (Same as: l Tablet 13:27: Zaroxolyn) Gabriela nn 00 Bumex 0 No Notes: Memoria 10-05 (Same As: l 12:00: Bumex) [place] 00 Bumex No 2 mg, Memoria 10-05 Route: IV, l 04:06: Q8H, [place] 00 Dosing Weight 123, kg, Priority: NOW, Start date: 10/05/19 23:06:00 CDT, Duration: 30 day, Stop date: 11/04/19 16:00:00 CDT Sodium 2019- No 250 mL, Memoria Chloride 10-05 Rate: To l 0.9% 04:05: prime line Aric (titrate) 00 and flush 250 mL remaining blood products., Dosing Weight 123, kg, Route: IV, Total Volume: 250, Start Date: 10/05/19 23:05:00 CDT, Duration: 1 day, Stop date: 10/06/19 23:04:00 CDT, Replace Every: 24 hr, 0 albumin No 25 gm, Memoria human 25% 10-05 Route: l intravenous 02:22: IVPB, Gabriela nn solution 00 ONCE, Dosing Weight 123, kg, Start date: 10/05/19 21:22:00 CDT, Stop date: 10/05/19 21:22:00 CDT, Indication : Non-hemorr hagic shock Morphine No Notes: Memoria 10-05 (Same l 02:18: as:MORPhin [place] 00 e Sulfate) Dilaudid No Notes: Memoria 10-05 Same as: l 02:18: Dilaudid atorvastati No Notes: Yoav yoselin n 10-05 (Same As: l 02:00: Lipitor) Aric 00 Jones No Notes: Memoria packet 10-05 (Same as: l 02:00: Jones [place]) Bumex No Notes: Memoria 10-04 (Same As: l 23:04: Bumex) Aric Fluticasone No Notes: Yoav yoselin propionate 10-04 (Same as: l 0.05 22:00: Flonase) Aric MG/ACTUAT 00 Metered Dose Nasal [place] [Flonase] Protonix 2019-0 No Notes: For Mem oria 10-04 IV push l 22:00: reconstitu [place] 00 te with 10 ml 0.9% sodium chloride and push over 2 minutes. (Same as: Protonix) Sodium 2020-0 No 250 mL, Memoria Chloride 10-04 Rate: To l 0.9% 19:06: prime line [place] (titrate) 00 and flush 250 mL remaining blood products., Dosing Weight 123, kg, Route: IV, Total Volume: 250, Start Date: 10/05/19 14:06:00 CDT, Duration: 1 day, Stop date: 10/06/19 14:05:00 CDT, Replace Every: 24 hr, 0 Morphine 2020-0 No 4 mg, Memoria 10-04 Route: l 15:08: IVP, ONCE, [place] 00 Dosing Weight 123, kg, Start date: 10/05/19 10:08:00 CDT, Stop date: 10/05/19 10:08:00 CDT Nitroglycer 2019-0 No Notes: Yoav yoselin in 0.3 MG 10-04 (Same l Sublingual 14:19: as:Nitroqu H ermann Tablet 00 ick, Nitrostat) "Do Not Crush" Sublingual tablet Sodium 0 No 250 mL, Memoria Chloride 10-04 Rate: To l 0.9% 12:25: prime line Aric (titrate) 00 and flush 250 mL remaining blood products., Dosing Weight 123, kg, Route: IV, Total Volume: 250, Start Date: 10/05/19 7:25:00 CDT, Duration: 1 day, Stop date: 10/06/19 7:24:00 CDT, Replace Every: 24 hr, 0 12 HR 2020-0 No Notes: Memoria ranolazine 10-04 Same as l 500 MG 08:58: Ranexa "Do Gabriela nn Extended 00 Not Crush" Release Tablet [Ranexa] metoprolol 2019-0 No 12.5 mg = Me moria 25 mg oral 10-04 0.5 tab, l tablet, 02:48: PO, BID, 0 Herm billie extended 00 Refill(s) release pregabalin 2019-0 Yes 75 mg = 1 Me moria 75 mg oral 10-04 cap, PO, l capsule 02:48: Bedtime, 0 Herm billie 00 Refill(s) atorvastati 2020-0 Yes 20 mg, PO, Memoria n 808 Bedtime, 0 l 02:48: Refill(s) pantoprazol 2020-0 Yes 40 mg = 1 M emoria e 40 mg 10-04 tab, PO, l oral 02:48: BID, 0 Aric enteric 00 Refill(s) coated tablet Bumex 2020-0 No 2 mg, IV, Memoria 10-04 Q8H, 0 l 02:48: Refill(s) Metolazone 2020-0 Yes 5 mg = 1 Mem oria 5 MG Oral 10-04 tab, PO, l Tablet 02:48: Daily, Hold for systolic blood pressure less than 100 or heart rate less than 60, 0 Refill(s) nafcillin 2 2020-0 Yes IV, Q4H, 0 Memoria g injection 10-04 Refill(s) l 02:48: Fluticasone 2020-0 Yes 1 spray, Me moria propionate 10-04 NASAL, l 0.05 02:48: BID, # 16 Aric MG/ACTUAT 00 gm, 0 Metered Refill(s) Dose Nasal [place] [Flonase] Loratadine 2019-0 Yes 10 mg = 1 Me moria 10 MG Oral 10-04 tab, PO, l Tablet 02:48: Daily, 0 Aric [Claritin] 00 Refill(s) Bumex 2020-0 No Notes: Memoria 10-04 (Same As: l 01:12: Bumex) Ondansetron 2019-0 No Notes: Yoav yoselin 10-04 (Same as: l 00:46: Zofran) MEDICATION WASTE Product Size: 4 mg Product Wasted: ___ mg Nafcillin 2020-0 No 2 gm, Memoria 10-03 Route: l 21:00: IVPB, Q4H, Dosing Weight 122.727, kg, Start date: 10/04/19 16:00:00 CDT, Duration: 30 day, Stop date: 11/03/19 12:00:00 CDT, 0 Dextrose 2020-0 No 12.5 gm, Memor ia 50% Syringe 8-07 25 mL, l (D50W) 20:27: Route: Aric 00 IVP, Drug Form: INJ, Dosing Weight 122.727, kg, PRN, PRN Blood Glucose Results, Start date: 10/04/19 15:27:00 CDT, Duration: 30 day, Stop date: 11/03/19 15:26:00 CDT, 0 Glucagon 2020-0 No 1 mg, Memoria 10-03 Route: IM, l 20:27: Drug form: Aric 00 PDR/INJ, PRN, Dosing Weight 122.727, kg, PRN Blood Glucose Results, Start date: 10/04/19 15:27:00 CDT, Duration: 30 day, Stop date: 11/03/19 15:26:00 CDT, 0 Insulin 2020-0 No Notes: Memoria Lispro 10-03 (Same as: l 20:27: Humalog) Aric 00 Roll in palms of hands gently; Do not shake vigorously . WASTE: F/P - Black; E - Tipping Bucket Trash Bin Stable for 28 days at room temperatur e. Expires in days from ____Date pantoprazol 2020-0 No Notes: For Memoria e additive 10-03 IV push l 80 mg + 20:24: reconstitu Herm billie Sodium 00 te with 10 Chloride ml 0.9% 0.9% IV 100 sodium mL chloride and push over 2 minutes. (Same as: Protonix) Sodium 2020-0 No 250 mL, Memoria Chloride 10-03 Rate: To l 0.9% 18:05: prime line [place] (titrate) 00 and flush 250 mL remaining blood products., Dosing Weight 122.727, kg, Route: IV, Total Volume: 250, Start Date: 10/04/19 13:05:00 CDT, Duration: 1 day, Stop date: 10/05/19 13:04:00 CDT, Replace Every: 24 hr, 0 Saline 2020-0 No Notes: Memoria Flush 0.9% 10-03 Same as: l 16:51: BD [place] 00 Posiflush Sterile Sodium 2020-0 No 1,000 mL, Memori a Chloride 10-03 1000 l 0.9% 16:51: ml/hr, [place] (Bolus) IV 00 Infuse Over: 1 hr, Route: IV, 1,000, Drug form: INJ, ONCE, Priority: STAT, Dosing Weight 122.727 kg, Start date: 10/04/19 11:51:00 CDT, Stop date: 10/04/19 11:51:00 CDT, 0 pantoprazol 2020-0 No Notes: For Memoria e 10-03 IV push l 16:51: reconstitu Aric 00 te with 10 ml 0.9% sodium chloride and push over 2 minutes. (Same as: Protonix) metoprolol 2020-0 Yes 25 mg = 1 Me moria 25 mg oral 7-14 tab, PO, l tablet, 14:19: Daily, # Arben n extended 00 30 tab, 0 release Refill(s) Ticagrelor 2020-0 Yes 90 mg = 1 Me moria 90 MG Oral 7-14 tab, PO, l Tablet 14:19: BID, 0 [place] [Brilinta] 00 Refill(s) omeprazole 2020-0 Yes 40 mg = 1 Me moria 40 mg oral 7-14 cap, PO, l delayed 14:19: Daily, # Arben n release 00 30 cap, 0 capsule Refill(s) Karval-3 2020-0 Yes 0 Memoria oral 7-14 Refill(s) l capsule 14:19: Aric 00 isosorbide 2020-0 Yes 30 mg = 1 Me moria mononitrate 7-14 tab, PO, l 30 mg oral 14:19: QAM, # 30 He rmann tablet, 00 tab, 0 extended Refill(s) release 12 HR 2020-0 Yes 500 mg = 1 Memori a ranolazine 7-14 tab, PO, l 500 MG 14:19: BID, # 60 Arben n Extended 00 tab, 0 Release Refill(s) Tablet lisinopril 2020-0 Yes 10 mg = 1 Me moria 10 mg oral 7-14 tab, PO, l tablet 14:19: Daily, # Aric 00 30 tab, 0 Refill(s) fenofibric 2020-0 Yes 135 mg = 1 M emoria acid 135 mg 7-14 cap, PO, l oral 14:19: Daily, # Aric delayed 00 30 cap, 0 release Refill(s) capsule pioglitazon 2019-0 Yes 45 mg = 1 M emoria e 45 mg 7-14 tab, PO, l oral tablet 14:19: Daily, # He rmann 00 30 tab, 0 Refill(s) rosuvastati 2020-0 Yes 10 mg = 1 M emoria n 10 mg 7-14 tab, PO, l oral tablet 14:19: Bedtime, # Aric 00 30 tab, 0 Refill(s) Aspirin 81 2019- Yes 81 mg = 1 Me moria MG Chewable 7-14 tab, PO, l Tablet 14:19: Daily, [place] 00 tab, 0 Refill(s) Vitamin D3 Yes 2,000 Memori a 2000 intl 7-14 IntlUnit = l units oral 14:19: 1 cap, PO, H ermann capsule 00 Daily, # 100 cap, 3 Refill(s) Nitroglycer Yes 0.3 mg = 1 Memoria in 0.3 MG 7-14 tab, SL, l Sublingual 14:19: Q5Min, PRN H ermann Tablet 00 Chest Pain, # 100 tab, 0 Refill(s) Acetaminoph Yes 1 tab, PO, Memoria en 325 MG / 7-14 Q8H, PRN l Hydrocodone 14:19: Pain, # 60 Aric Bitartrate 00 tab, 0 10 MG Oral Refill(s) Tablet ticagrelor Yes 90mg Q.5D Take [facility] 8-20 tablet (90 Alondra es - 90 mg Tab 00:00: mg total) Med ical tablet 00 by mouth 2 Center (two) times daily. metFORMIN Yes Earliest [facility] (GLUCOPHAGE 8-20 [facility] can [facility] - ) 1000 MG 00:00: resume the Me dical tablet 00 metformin Center after cath would be this Monday. Do not resume until seen by PCP and cleared to resume.. aspirin 2017-02 Yes 81mg Take 81 mg [place] (ECOTRIN) 02-27 by mouth. Metho di 81 MG 12:33: st enteric 11 coated tablet cholecalcif 2017-02 Yes 1000U Take 1,000 Baptiste meaghan, 02-27 Units by Methodi vitamin D3, 12:33: mouth. st (VITAMIN 11 D3) 1,000 unit tablet furosemide 2017-02 Yes 40mg Take 40 mg [place] (LASIX) 40 01 by mouth. Meth rosie mg tablet 12:33: st 11 atorvastati 2017-02 Yes 10mg QD Take 10 mg Baptiste n (LIPITOR) 1-01 by mouth Meth rosie 10 MG 12:33: daily. st tablet 11 pioglitazon Yes TAKE 1 [place] (ACTOS) 7-23 TABLET Methodi 45 MG 00:00: DAILY st tablet 00 cholecalcif Yes 1000U QD Take 1,[address] meaghan 5-24 Units by [facility] - (VITAMIN 10:12: mouth Medical D3) 1,000 59 daily. Center unit tablet aspirin 81 Yes 81mg QD Take [address] MG EC 5-24 by mouth [facility] - tablet 10:12: daily. Medical 58 Center rosuvastati Yes 10mg QD Take [address] [facility] (CRESTOR) 5-24 by mouth [facility] - 10 MG 10:12: daily. Medical tablet 58 Center ranolazine Yes 1000mg QD Take 1,[address] (RANEXA) 5-24 mg by [facility] - 500 MG 12 10:12: mouth Medical hr tablet 58 daily. Center omeprazole Yes 40mg QD Take [address] (PRILOSEC) 5-24 by mouth [facility] - 40 MG 10:12: daily. Medical capsule 58 Center nitroglycer Yes .3mg Place 0.[address] in 5-24 mg under [facility] - (NITROSTAT) 10:12: the tongue Medical 0.3 MG SL 58 every 5 Center tablet (five) minutes as needed for Chest pain Put 1 pill under tongue every 5min as needed for chest pain.No more than 3 doses in 15min.Call 911 if pain is unrelieved 5min after 1st dose . furosemide Yes 40mg QD Take [address] (LASIX) 40 5-24 by mouth [facility] - MG tablet 10:12: daily. Medica l 58 Center choline Yes 135mg Take 135 [place] fenofibrate 1-12 mg by Methodi (TRILIPIX) 00:00: mouth. st 135 mg 00 capsule ranolazine Yes 1000mg Take 1,000 Baptiste (RANEXA) 1-12 mg by Methodi 1,000 mg 12 00:00: mouth. st hr tablet 00 omeprazole- Yes 45mg Q.5D Use as [facility] sodium 1-09 directed [facility] - bicarbonate 00:00: 45 mg in Me dical (ZEGERID) 00 the mouth Cente r 40-1.1 or throat mg-gram per 2 (two) capsule times daily. HYDROcodone Yes 1{tbl} Take 1 [place] -acetaminop 1-08 tablet by Met hodi hen (NORCO) 00:00: mouth. st 10-325 mg 00 per tablet omega-3 Yes 2g Take 2 g [place] acid ethyl 08 by mouth. Meth rosie esters 00:00: st (LOVAZA) 1 00 gram capsule nitroglycer Yes .3mg Place 0.3 [place] in 1-08 mg under Methodi (NITROSTAT) 00:00: the st 0.3 MG SL 00 tongue. tablet omeprazole Yes 40mg Take 40 mg [place] (PriLOSEC) 1-08 by mouth. Meth rosie 40 MG 00:00: st capsule 00 metoprolol Yes 50mg Take 50 mg [place] tartrate 2-21 by mouth. Method i (LOPRESSOR) 00:00: st 50 mg 00 tablet metoprolol 2012-02 Yes 25mg Q.5D Take [address] (LOPRESSOR) 02-27 by mouth 2 Lisette kes - 25 MG 20:20: (two) Medical tablet 04 times Center daily. fenofibric 2012-02 Yes 135mg QD Take [address] acid, 1-01 mg by [facility] - choline, 20:20: mouth Medical 135 mg 04 daily. Center capsule omega-3 2012-02 Yes 2g Q.5D Take [address] acid ethyl 1-01 by mouth 2 Alondra es - esters 20:20: (two) Medical (LOVAZA) 1 04 times Center gram daily. capsule pioglitazon 2012-02 Yes 45mg QD Take [address] e (ACTOS) 02-27 by mouth [facility] - 45 MG 20:20: daily. Medical tablet 04 Center pantoprazol 2012-02 Yes 40mg QD Take [address] e 1-01 by mouth [facility] - (PROTONIX) 20:20: daily. Medic al 40 MG 04 Center tablet mupirocin Yes Jackson 1 appl, Me moria topical 2% -19 Shabbir TOP, BID, l ointment 21:49: Bubis 22 gm, Arben n 59 Substituti on Allowed, OINT mupirocin No Jackson 1 appl, Me moria topical 2% - Shabbir TOP, BID, l ointment 21:31: Bubis 1 tube, Gabriela nn 33 Substituti on Allowed, OINT docusate Yes Jackson 100 mg, Mem oria sodium 100 9-19 Shabbir PO, BID, l mg oral 18:25: Bubis PRN, 20 Arben n capsule 18 cap, Constipati on, Substituti on Allowed [place] Yes Jackson 1 tab, PO, Mem oria 10/325 oral - Shabbir Q4H, PRN, l tablet 18:25: Bubis 24 tab, Aric 00 for pain, Substituti on Allowed, Maintenanc e pregabalin Yes Jackson 100 mg, 1 Memoria 100 mg oral -19 Shabbir cap, PO, l capsule 18:24: Bubis Q8H, 90 Arben n 26 cap, Substituti on Allowed, CAP pantoprazol Yes Jackson 40 mg, 1 Memoria e 40 mg -19 Shabbir tab, PO, l oral 18:24: Bubis Q12H, 60 [place] enteric 11 tab, coated Substituti tablet on Allowed, ECTAB metoprolol Yes Jackson 25 mg, 1 Memoria tartrate 25 9-19 Shabbir tab, PO, l mg oral 18:23: Bubis Q12H, 60 Gabriela nn tablet 55 tab, Substituti on Allowed, TAB Trilipix Yes Jackson 135 mg, 1 M emoria 135 mg oral 9-19 Shabbir cap, PO, l delayed 18:23: Bubis Daily, 30 Herm billie release 30 cap, capsule Substituti on Allowed, CAP bacitracin No Jackson 1 appl, M emoria topical 500 - Shabbir TOP, l units/g 18:23: Bubis Daily, [place] ointment 22 PRN, 1 tube, Wound Care, Substituti on Allowed, OINT atorvastati Yes Jackson 40 mg, 1 Memoria n 40 mg 11-15 Shabbir tab, PO, l oral tablet 18:23: Bubis Daily, 30 [place] 06 tab, Substituti on Allowed, TAB aspirin 325 Yes Jackson 325 mg, 1 Memoria mg tablet, 11-15 Shabbir tab, PO, l enteric 18:22: Bubis Daily, 30 Herm billie coated 54 tab, Substituti on Allowed, ECTAB AMIODarone Yes Jackson 200 mg, 1 Memoria 200 mg oral 11-15 Shabbir tab, PO, l tablet 18:22: Bubis Daily, 30 Gabriela nn 44 tab, Substituti on Allowed, TAB Lovaza oral Yes Jackson 1,000 mg, Memoria capsule 11-15 Shabbir 1 cap, PO, l 18:22: Bubis BID, 60 Aric 23 cap, Substituti on Allowed, Maintenanc e, CAP Bactroban No Jackson 1 appl, Me moria 2% topical 11-15 Route: l ointment 01:00: Bubis TOP, BID, Her stephenson 00 Drug form: OINT, Cleanse left posterior thigh wound with wound cleanser. Pat dry and apply Bactroban ointment BID., Start date: 11/14/12 20:00:00, Duration: 30 day, Stop date: 12/14/12 8:00:00 Bactroban No Jackson 1 appl, Me moria 11-14den Route: l 22:00: Bubis TOP, BID, [place] 00 Drug form: OINT, Cleanse left posterior thigh wound with wound cleanser. Pat dry and apply Bactroban ointment BID., Start date: 11/14/12 17:00:00, Duration: 30 day, Stop date: 12/14/12 8:00:00 NS 1,000 mL No Catie 1,000 mL, Memoria 11-13 Inder Rate: 75 l 01:08: ml/hr, [place] 00 Infuse over: 13.3 hr, Route: IV, Dosing Weight 109.091 kg, Total Volume: 1,000, Start date: 11/12/12 20:08:00, Duration: 30 day, Stop date: 12/12/12 20:07:00 magnesium 2013-0 No [place] 2 gm, 50 Me moria sulfate 9-17 [place] mL, Route: l 01:00: IVPB, Drug Aric 00 form: INJ, Q2H, Dosing Weight 109.091, kg, Total dose = 4 gm, Start date: 11/12/12 20:00:00, Duration: 2 doses or times, Stop date: 11/12/12 22:00:00 nitroglycer 2012-0 No [place] 0.4 mg, 1 Memoria in 0.4 mg 11-08 [place] tab, l sublingual 14:03: Route: SL, H ermann tablet 00 Drug form: TAB, Q5Min, Dosing Weight 109.091, kg, PRN Chest Pain, Start date: 11/08/12 9:03:00, Duration: 30 day, Stop date: 12/08/12 9:02:00 magnesium 2012-0 No [place] 2 gm, 50 Me moria sulfate 9-12 [place] mL, Route: l 13:00: IVPB, Drug [place] form: INJ, Q2H, Dosing Weight 109.091, kg, Total dose = 4 gm, Start date: 11/08/12 8:00:00, Duration: 2 doses or times, Stop date: 11/08/12 10:00:00 hydrALAZINE 2012-0 No [place] 5 mg, 0.25 Memoria -12 [place] mL, Route: l 02:12: IV, Drug [place] form: INJ, Q6H, Dosing Weight 109.091, kg, PRN Elevated BP, Start date: 11/07/12 21:12:00, Duration: 30 day, Stop date: 12/07/12 21:11:00 NS 1,000 mL 2012-0 No [place] 1,000 mL, Memoria 9-11 [place] Rate: 75 l 11:30: ml/hr, Aric 00 Infuse over: 13.3 hr, Route: IV, Dosing Weight 109.091 kg, Total Volume: 1,000, Start date: 11/07/12 6:30:00, Duration: 30 day, Stop date: 12/07/12 6:29:00 lisinopril 2012- No Jackson 10 mg, 1 Memoria 11-05 Shabbir tab, l 22:01: Bubis Route: PO, Arben n 00 Drug form: TAB, ONCE, Dosing Weight 109.091, kg, Start date: 11/05/12 17:01:00, Stop date: 11/05/12 17:01:00 midodrine 2012-0 No Belgin 10 mg, 1 Me moria 11-04 Camcioglu tab, l 18:00: Route: PO, [place] 00 Drug form: TAB, TID, Dosing Weight 109.091, kg, Start date: 11/04/12 13:00:00, Duration: 30 day, Stop date: 12/04/12 8:00:00 Kayexalate 2012- No Jackson 15 gm, 60 Memoria 11-04 Shabbir mL, Route: l 15:39: Bubis PO, Drug Aric 00 form: SUSP, ONCE, Dosing Weight 109.091, kg, Start date: 11/04/12 10:39:00, Stop date: 11/04/12 10:39:00 insulin 2012- No Belgin 3 unit, Memor ia isophane[employer] 11-03 Camcioglu 0.03 mL, l H 16:30: Route: [place] 00 SUB-Q, Drug form: INJ, BID, Dosing Weight 109.091, kg, Start date: 11/03/12 11:30:00, Duration: 30 day, Stop date: 12/03/12 8:00:00 magnesium 2012-0 No Jackson 2 gm, 50 M emoria sulfate 11-03 Shabbir mL, Route: l 13:00: Bubis IVPB, Drug Arben n form: INJ, Q2H, Dosing Weight 109.091, kg, Total Dose = 4 gm, Start date: 11/03/12 8:00:00, Duration: 2 doses or times, Stop date: 11/03/12 10:00:00, For Mg = 1.5 - 1.7 mg/dLFor Mg = 1.5 - 1.7 mg/dL Sodium 2012- No Jackson 250 mL, Memor ia Chloride 11-03 Shabbir Rate: On l 0.9% 12:30: Bubis call for [place] (titrate) 00 use with 250 mL blood product administra tion, Dosing Weight 109.091, kg, Route: IV, Total Volume: 250, Stop date: 12/03/12 7:29:00, Replace Every: 1 hr normal No Jackson 1,000 mL, Mem oria saline 0.9% 11-02 Shabbir Rate: 100 l IV 1,000 mL 23:27: Bubis ml/hr, Her stephenson 00 Infuse over: 10 hr, Route: IV, Dosing Weight 109.091 kg, Total Volume: 1,000, Start date: 11/02/12 18:27:00, Duration: 2 day, Stop date: 11/04/12 18:26:00 NS (Bolus) No Miguel Angel 500 mL, Me moria IV 500 mL 11-02 Omidvar Rate: 500 l 02:26: ml/hr, [place] 00 Infuse over: 1 hr, Route: IV, Dosing Weight 109.091 kg, Total Volume: 500, Priority: STAT, Start date: 11/01/12 21:26:00, Duration: 1 doses or times, Stop date: 11/01/12 22:25:00, Bolus DoseBolus Dose Lovaza No Jackson Lovaza Memori a (Karval-3-Ac 11-02 Shabbir (Karval-3-A l id Ethyl 01:00: Bubis oscar Ethyl Her stephenson Esters) 00 Esters) Capsules (1 Capsules gm) (1 gm), 2 cap, Drug form: MISC, Route: PO, BID, 11/01/12 20:00:00, Duration: 30 day, Stop date: 12/01/12 8:00:00 Kayexalate No Jackson 30 gm, 120 Memoria 11-01 Shabbir mL, Route: l 20:18: Bubis PO, Drug Aric 00 form: SUSP, ONCE, Dosing Weight 109.091, kg, Start date: 11/01/12 15:18:00, Stop date: 11/01/12 15:18:00 normal No Jackson 1,000 mL, Mem oria saline 0.9% 11-01 Shabbir Rate: 75 l IV 1,000 mL 19:26: Bubis ml/hr, Her stephenson 00 Infuse over: 13.3 hr, Route: IV, Dosing Weight 109.091 kg, Total Volume: 1,000, Start date: 11/01/12 14:26:00, Duration: 1 day, Stop date: 11/02/12 14:25:00 normal 2012- No Jackson 1,000 mL, Mem oria saline 0.9% 11-01 Shabbir Rate: l IV 1,000 mL 19:25: Bubis 1,000 Herm billie 00 ml/hr, Infuse over: 1 hr, Route: IV, Dosing Weight 109.091 kg, Total Volume: 1,000, Start date: 11/01/12 14:25:00, Duration: 1 doses or times, Stop date: 11/01/12 15:24:00 Kayexalate No Jackson 30 gm, Me moria 05 Shabbir Route: PO, l 16:26: Bubis Drug form: Arben n 00 SUSP, ONCE, Dosing Weight 109.091, kg, Start date: 11/01/12 11:26:00, Stop date: 11/01/12 11:26:00 aspirin No Belgin 325 mg, 1 Mem oria -04 Camcioglu tab, l 13:00: Route: PO, [place] 00 Drug form: ECTAB, Daily, Dosing Weight 109, kg, Start date: 10/31/12 8:00:00, Duration: 30 day, Stop date: 11/29/12 8:00:00 bisacodyl No Belgin 10 mg, 1 Me moria - Camcioglu supp, l 20:07: Route: OR, [place] 00 Drug form: SUPP, Daily, Dosing Weight 109, kg, PRN Constipati on, Start date: 10/30/12 15:07:00, Duration: 30 day, Stop date: 11/29/12 15:06:00 Dextrose 2012- No Belgin 25 gm, 50 Me moria 50% Syringe 10-30 Camcioglu mL, Route: l 15:52: IVP, Drug Form: INJ, Dosing Weight 109, kg, PRN, PRN Blood Glucose Results, Start date: 10/30/12 10:52:00, Stop date: 11/25/12 10:51:00 magnesium 2012-0 No Belgin 150 ml, Mem oria citrate 10-29 Camcioglu Route: PO, l 16:02: Drug Form: Aric 00 LIQ, Dosing Weight 109.091, kg, ONCE, Start date: 10/29/12 11:02:00, Stop date: 10/29/12 11:02:00 Lovenox 2012-0 No Taryn H 30 mg, 0.3 Me moria 10-29 Khraish mL, Route: l 14:00: SUB-Q, Aric 00 Drug form: INJ, Q12H, Dosing Weight 109.091, kg, Start date: 10/29/12 9:00:00, Duration: 28 day, Stop date: 11/25/12 21:00:00 tamsulosin 2012-0 No Jackson 0.4 mg, 1 Memoria 10-27 Shabbir cap, l 22:00: Bubis Route: PO, Arben n 00 Drug form: CAP, After Dinner, Dosing Weight 109, kg, Start date: 10/27/12 17:00:00, Duration: 30 day, Stop date: 11/25/12 17:00:00 Lovenox 2012-0 No Taryn H 30 mg, 0.3 Me moria 10-27 Khraish mL, Route: l 21:00: SUB-Q, Aric 00 Drug form: INJ, Q12H, Dosing Weight 109.091, kg, Start date: 10/27/12 16:00:00, Stop date: 11/26/12 9:00:00 pantoprazol 2012-0 No Robert 40 mg, 1 Me moria e 10-27 Chibueze tab, l 14:00: Osuagwu Route: PO, Herm billie 00 Drug form: ECTAB, Q12H, Dosing Weight 109, kg, Start date: 10/27/12 9:00:00, Duration: 30 day, Stop date: 11/25/12 21:00:00 metoprolol 2012-0 No Jackson 25 mg, 1 Memoria tartrate 10-27 Shabbir tab, l 14:00: Bubis Route: PO, Arben n 00 Drug form: TAB, Q12H, Dosing Weight 109, kg, Start date: 10/27/12 9:00:00, Stop date: 11/25/12 21:00:00 magnesium 2012-0 No Belgin 2 gm, 50 Me moria sulfate 10-27 Camcioglu mL, Route: l 13:00: IVPB, Drug Aric 00 form: INJ, Q2H, Dosing Weight 109, kg, Total dose = 4 gm, Start date: 10/27/12 8:00:00, Duration: 2 doses or times, Stop date: 10/27/12 10:00:00 pregabalin 2012-0 No Jackson 100 mg, 1 Memoria 10-27 Shabbir cap, l 13:00: Bubis Route: PO, Arben n 00 Drug form: CAP, Q8H, Dosing Weight 109, kg, Start date: 10/27/12 8:00:00, Stop date: 11/26/12 0:00:00 Lovaza 2012-0 No Jackson 1,000 mg, Mem oria 10-27 Shabbir 1 cap, l 13:00: Bubis Route: PO, Arben n 00 Drug Form: CAP, Dosing Weight 109, kg, BID, Start date: 10/27/12 8:00:00, Duration: 30 day, Stop date: 11/25/12 20:00:00 multivitami 2012-0 No Robert 1 tab, Yoav yoselin n 10-27 Chibueze Route: PO, l 13:00: Osuagwu Drug Form: Herm billie 00 TAB, Dosing Weight 109, kg, Daily, Start date: 10/27/12 8:00:00, Duration: 30 day, Stop date: 11/25/12 8:00:00 lisinopril 2012-0 No Belgin 2.5 mg, 1 Memoria 10-27 Camcioglu tab, l 13:00: Route: PO, [place] 00 Drug form: TAB, Daily, Dosing Weight 109, kg, Start date: 10/27/12 8:00:00, Stop date: 11/25/12 8:00:00 Lidoderm 5% 2012-0 No Jackson 1 patch, Memoria topical 10-27 Shabbir Route: l film 13:00: Aric Abreu (patch) 00 Daily, Drug form: FILM, Start date: 10/27/12 8:00:00, Duration: 30 day, Stop date: 11/24/12 10:30:00 Trilipix 2012-0 No Jackson 135 mg, 1 M emoria 8-31 Shabbir cap, l 13:00: Bubis Route: PO, Arben n 00 Drug form: CAP, Daily, Dosing Weight 109, kg, Start date: 10/27/12 8:00:00, Stop date: 11/25/12 8:00:00 atorvastati 2012-0 No Robert 40 mg, 1 Me moria n 8-31 Chibueze tab, l 13:00: Osuagwu Route: PO, Herm billie 00 Drug form: TAB, Daily, Dosing Weight 109, kg, Start date: 10/27/12 8:00:00, Duration: 30 day, Stop date: 11/25/12 8:00:00 aspirin 2012-0 No Belgin 81 mg, 1 Yoav yoselin 8-31 Camcioglu tab, l 13:00: Route: PO, Aric 00 Drug form: ECTAB, Daily, Dosing Weight 109, kg, Start date: 10/27/12 8:00:00, Duration: 30 day, Stop date: 11/25/12 8:00:00 AMIODarone 2012-0 No Robert 200 mg, 1 Me moria 8-31 Chibueze tab, l 13:00: Osuagwu Route: PO, Herm billie 00 Drug form: TAB, Daily, Dosing Weight 109, kg, Start date: 10/27/12 8:00:00, Duration: 30 day, Stop date: 11/25/12 8:00:00 Ultram 50 2012-0 No Belgin 50 mg, 1 Me moria mg oral 8-31 Camcioglu tab, l tablet 05:09: Route: PO, Gabriela nn Drug form: TAB, Q6H, Dosing Weight 109, kg, PRN Pain Score 4-6, Start date: 10/27/12 0:09:00, Stop date: 11/26/12 0:08:00 [place] 2012-0 No Belgin 1 tab, Memoria 10/325 oral 8-31 Camcioglu Route: PO, l tablet 05:09: Drug Form: Gbariela nn 00 TAB, Dosing Weight 109, kg, Q6H, PRN Pain Score 7-10, Start date: 10/27/12 0:09:00, Stop date: 11/26/12 0:08:00 bacitracin No Robert 1 appl, Yoav yoselin topical 500 10-27 Chibueze Route: l units/g 05:05: Osuagwu TOP, [place] ointment 00 Daily, Drug form: OINT, PRN Wound Care, Start date: 10/27/12 0:05:00, Stop date: 11/26/12 0:04:00 docusate No Belgin 100 mg, 1 Me moria 8-30 Camcioglu cap, l 22:00: Route: PO, Drug form: CAP, BID, Dosing Weight 109, kg, Start date: 10/26/12 17:00:00, Duration: 30 day, Stop date: 11/25/12 9:00:00 Insulin No Belgin 1 unit, Memor ia regular 8-30 Camcioglu 0.01 mL, l 21:50: Route: SUB-Q, Drug form: SOLN, TID-Before Meals, Dosing Weight 109, kg, PRN Blood Glucose Results, Start date: 10/26/12 16:50:00, Duration: 30 day, Stop date: 11/25/12 16:49:00 bisacodyl No Belgin 10 mg, 1 Me moria 8-30 Camcioglu supp, l 21:50: Route: OR, Drug form: SUPP, ONCE, Dosing Weight 109, kg, PRN Constipati on, Start date: 10/26/12 16:50:00 Milk of No Belgin 30 mL, Memori a Magnesia 8-30 Camcioglu Route: PO, l 21:50: Drug Form: SUSP, Dosing Weight 109, kg, Daily, PRN Constipati on, Start date: 10/26/12 16:50:00, Duration: 30 day, Stop date: 11/25/12 16:49:00 Lidoderm 5% Yes Robert 1 patch, Me moria topical 10-26 Chibueze TOP, l film 20:00: Osuagwu Daily, 5 Arben n (patch) 55 patch, Substituti on Allowed, FILM pregabalin 2013-0 Yes Robert 50 mg, 1 Mem oria 50 mg oral 8-30 Chibueze cap, PO, l capsule 20:00: Osuagwu Q8H, 60 Herm billie 24 cap, Substituti on Allowed, CAP tamsulosin Yes Robert 0.4 mg, 1 Me moria 0.4 mg oral 8-30 Chibueze cap, PO, l capsule 20:00: Osuagwu After Arben n 13 Dinner, 30 cap, Substituti on Allowed, CAP bacitracin Yes Robert 1 appl, Yoav yoselin topical 500 8-30 Chibueze TOP, l units/g 19:59: Osuagwu Daily, Gabriela nn ointment 25 PRN, 1 tube, Wound Care, Substituti on Allowed, OINT AMIODarone Yes Robert 200 mg, 1 Me moria 200 mg oral 8-30 Chibueze tab, PO, l tablet 19:59: Osuagwu Daily, 30 Her stephenson 06 tab, Substituti on Allowed, TAB pantoprazol Yes Robert 40 mg, 1 Me moria e 40 mg 8-30 Chibueze tab, PO, l oral 19:58: Osuagwu Q12H, 60 Arben n enteric 52 tab, coated Substituti tablet on Allowed, ECTAB AMIODarone No Belgin 200 mg, 1 Memoria 8-30 Camcioglu tab, l 14:00: Route: PO, Aric Drug form: TAB, Daily, Dosing Weight 109, kg, Start date: 10/26/12 9:00:00, Duration: 30 day, Stop date: 11/24/12 9:00:00 Remove - No Belgin 1 patch, Mem oria lidocaine 8-30 Camcioglu Route: l topical 14:00: TOP, [place] patch 00 Daily, Drug form: ERFILM, Start date: 10/26/12 9:00:00, Duration: 30 day, Stop date: 11/24/12 9:00:00 magnesium No Belgin 2 gm, 50 Me moria sulfate 8-30 Camcioglu mL, Route: l 13:00: IVPB, Drug form: INJ, Q2H, Dosing Weight 109, kg, Total dose = 4 gm, Start date: 10/26/12 8:00:00, Duration: 2 doses or times, Stop date: 10/26/12 10:00:00 lidocaine 2012-0 No Cely 2 patch, Yoav yoselin topical 10-26 Gt Route: l patch (5% 04:00: Henschel TOP, Herm billie film) 00 Bedtime, Drug form: FILM, Start date: 10/25/12 23:00:00, Duration: 30 day, Stop date: 11/24/12 21:00:00, Remove after 12 hoursRemov e after 12 hours Flomax 2012-0 No Belgin 0.4 mg, 1 Yoav yoselin - Camcioglu cap, l 22:00: Route: PO, [place] Drug form: CAP, After Dinner, Dosing Weight 109, kg, Start date: 10/25/12 17:00:00, Duration: 30 day, Stop date: 11/23/12 17:00:00 bacitracin 2012-0 No Belgin 1 appl, Me moria topical 10-25 Camcioglu Route: l 17:00: TOP, Q6H, [place] 00 Drug form: OINT, Start date: 10/25/12 12:00:00, Duration: 30 day, Stop date: 11/24/12 6:00:00 ketorolac 2012-0 No Robert 30 mg, 1 Yoav yoselin 10-25 Chibueze mL, Route: l 07:08: Osuagwu IV, Drug Arben n 00 form: INJ, ONCE, Dosing Weight 109, kg, Start date: 10/25/12 2:08:00, Duration: 1 doses or times, Stop date: 10/25/12 2:08:00 ondansetron 2012-0 No Mark 4 mg, 2 Me moria 8-29 Kyler mL, Route: l 03:19: Pathikonda IVP, Drug He form: INJ, ONCE, Dosing Weight 109, kg, PRN Nausea & Vomiting, Start date: 10/24/12 22:19:00 flumazenil 0 No Mark 0.2 mg, 2 M emoria - Kyler mL, Route: l 03:19: Pathikonda IVP, Drug He form: INJ, PRN, Dosing Weight 109, kg, PRN Benzodiaze pine Reversal, Initial dose, Start date: 10/24/12 22:19:00, Stop date: 10/25/12 6:00:00 naloxone 2012- No Mark 0.04 mg, Yoav yoselin 8-29 Kyler 0.1 mL, l 03:19: Pathikonda Route: Gabriela nn IVP, Drug form: INJ, Q2MIN, Dosing Weight 109, kg, PRN Narcotic Reversal, Start date: 10/24/12 22:19:00, Duration: 8 doses or times, Stop date: 10/25/12 6:00:00 hydromorpho 2012- No Mark 0.5 mg, Me moria ne 8-29 Kyler 0.25 mL, l 03:19: Pathikonda Route: Gabriela nn IVP, Drug form: INJ, Q5Min, Dosing Weight 109, kg, PRN Pain Score 7-10, Start date: 10/24/12 22:19:00, Duration: 5 doses or times, Stop date: 10/25/12 6:00:00 labetalol No Mark 5 mg, 1 Yoav yoselin 8-29 Kyler mL, Route: l 03:19: Pathikonda IVP, Drug He form: INJ, Q5Min, Dosing Weight 109, kg, PRN Elevated BP, Start date: 10/24/12 22:19:00, Duration: 5 doses or times, Stop date: 10/25/12 6:00:00 naloxone No Mark 0.04 mg, Yoav yoselin 8-29 Kyler Route: l 03:15: Pathikonda IVP, Aric 00 Q2MIN, Dosing Weight 109, kg, PRN Narcotic Reversal, Start date: 10/24/12 22:15:00, Duration: 8 doses or times, Stop date: Limited # of times ondansetron No Mark 4 mg, Yoav yoselin 8-29 Kyler Route: l 03:15: Pathikonda IVP, ONCE, H erm Dosing Weight 109, kg, PRN Nausea & Vomiting, Start date: 10/24/12 22:15:00 flumazenil No Mark 0.2 mg, Mem oria 10-25 Kyler Route: l 03:15: Pathikonda IVP, PRN, He rm Dosing Weight 109, kg, PRN Benzodiaze pine Reversal, Initial dose, Start date: 10/24/12 22:15:00, Duration: 30 day, Stop date: 11/23/12 22:14:00 labetalol No Mark 5 mg, Memori a 10-25 Kyler Route: l 03:15: Pathikonda IVP, Aric 00 Q5Min, Dosing Weight 109, kg, PRN Elevated BP, Start date: 10/24/12 22:15:00, Duration: 5 doses or times, Stop date: Limited # of times Ancef No Lopez 2 gm, 50 Memor ia 10-25 Cameron mL, Route: l 01:12: Koepplinge IVP, Drug He rm r form: INJ, ONCE, Dosing Weight 109, kg, Start date: 10/24/12 20:12:00, Stop date: 10/24/12 20:12:00 lisinopril No Jackson 40 mg, 2 Memoria 10-24 Shabbir tab, l 14:00: Bubis Route: PO, Arben n 00 Drug form: TAB, Daily, Dosing Weight 109, kg, Start date: 10/24/12 9:00:00, Duration: 30 day, Stop date: 11/22/12 9:00:00 Remove - No Ezio W 1 patch, Me moria lidocaine 10-20 Bogomolny Route: l topical 14:00: TOP, [place] patch 00 Daily, Drug form: ERFILM, Start date: 10/20/12 9:00:00, Duration: 30 day, Stop date: 11/18/12 9:00:00 normal No Jackson 500 mL, Memor ia saline 0.9% 10-20 Shabbir Rate: 500 l IV 500 mL 13:29: Bubis ml/hr, Gabriela nn 00 Infuse over: 1 hr, Route: IV, Dosing Weight 109 kg, Total Volume: 500, Start date: 10/20/12 8:29:00, Duration: 1 doses or times, Stop date: 10/21/12 8:28:00 magnesium 2012- No Jackson 2 gm, 50 M emoria sulfate 10-20 Shabbir mL, Route: l 03:00: Lam IVPB, Drug Arben n 00 form: INJ, Q2H, Dosing Weight 109, kg, Total Dose = 6 gm, Start date: 10/19/12 22:00:00, Duration: 1 doses or times, Stop date: 10/19/12 22:00:00, For Mg = 1 - 1.4 mg/dLFor Mg = 1 - 1.4 mg/dL Lidoderm 5% No Cely 2 patch, Me moria topical 10-20 Gt Route: l film 02:00: Aric Bocanegra (patch) 00 Daily, Drug form: FILM, Start date: 10/19/12 21:00:00, Stop date: 11/17/12 21:00:00, Remove after 12 hoursRemov e after 12 hours [place] No Ezio W 1 tab, Memoria 10/325 oral 10-20 Bogomolny Route: PO, l tablet 01:00: Drug Form: Gabriela nn 00 TAB, Dosing Weight 109, kg, Q4H, Start date: 10/19/12 20:00:00, Duration: 30 day, Stop date: 11/18/12 16:00:00 Lyrica No Ezio W 50 mg, 1 Yoav yoselin 10-19 [place]omolny cap, l 23:15: Route: PO, Aric 00 Drug form: CAP, Q8H, Dosing Weight 109, kg, Priority: NOW, Start date: 10/19/12 18:15:00, Duration: 30 day, Stop date: 11/18/12 16:00:00 tramadol No Ezio W 100 mg, 2 M emoria 10-19 Bogomolny tab, l 23:00: Route: PO, [place] 00 Drug form: TAB, Q6H, Dosing Weight 109, kg, Start date: 10/19/12 18:00:00, Duration: 30 day, Stop date: 11/18/12 12:00:00 cefazolin + No Thomas 2 gm, Me moria Sodium 10-19 Steve Route: l Chloride 22:30: Kailey Nguyen IVPB, Tyler rmann 0.9% IV 100 00 ABXQ8H, mL Start date: 10/19/12 17:30:00, Duration: 3 doses or times, Stop date: 10/20/12 9:30:00 [place] 2012-0 No Ezio W 1 tab, Memoria 10/325 oral 10-19 Bogomolny Route: PO, l tablet 22:09: Drug Form: Gabriela nn 00 TAB, Dosing Weight 109, kg, Q4H, PRN Pain, Start date: 10/19/12 17:09:00, Duration: 30 day, Stop date: 11/18/12 17:08:00 magnesium 2012- No Jackson 2 gm, 50 M emoria sulfate 10-19 Shabbir mL, Route: l 21:00: Bubis IVPB, Drug Arben n 00 form: INJ, Q2H, Dosing Weight 109, kg, Total Dose = 6 gm, Start date: 10/19/12 16:00:00, Duration: 2 doses or times, Stop date: 10/19/12 18:00:00, For Mg = 1 - 1.4 mg/dLFor Mg = 1 - 1.4 mg/dL ropivacaine No Cely 320 mL, Mem oria 800 mg + 10-19 Gt Rate: 8 l Q-Pump 1 ea 18:58: Henschel ml/hr, [place] + Sodium 00 Infuse Chloride over: 50 0.9% hr, Dosing (titrate) Weight 320 mL 109, kg, Route: NERVE BLOCK, Total Volume: 400 mL, Duration: 30 day, Stop date: 11/18/12 13:57:00, Replace Every: 24 hr Ancef 2012-0 No Thomas 2 gm, Memoria 10-19 Steve Route: l 18:00: Lowell Jr IVPB, Arben n 00 ABXQ8H, Dosing Weight 109, kg, Start date: 10/19/12 13:00:00, Duration: 3 doses or times, Stop date: 10/20/12 5:00:00 naloxone 2012-0 No Shahbaz 0.04 mg, M emoria 10-19 Jackson 0.1 mL, l 17:41: Agudelo Route: Aric 00 IVP, Drug form: INJ, Q2MIN, Dosing Weight 109, kg, PRN Narcotic Reversal, Start date: 10/19/12 12:41:00, Duration: 8 doses or times, Stop date: 10/20/12 0:00:00 ondansetron 2012-0 No Shahbaz 4 mg, 2 Memoria 8-23 Jackson mL, Route: l 17:41: Agudelo IVP, Drug Arben n 00 form: INJ, ONCE, Dosing Weight 109, kg, PRN Nausea & Vomiting, Start date: 10/19/12 12:41:00 flumazenil 2012-0 No Shahbaz 0.2 mg, 2 Memoria 8-23 Jackson mL, Route: l 17:41: Agudelo IVP, Drug Arben n 00 form: INJ, PRN, Dosing Weight 109, kg, PRN Benzodiaze pine Reversal, Initial dose, Start date: 10/19/12 12:41:00, Duration: 5 doses or times, Stop date: 10/20/12 0:00:00 hydrALAZINE 2012-0 No Shahbaz 5 mg, 0.25 Memoria 8-23 Jackson mL, Route: l 17:41: Agudelo IVP, Drug Arben n 00 form: INJ, Q5Min, Dosing Weight 109, kg, PRN Elevated BP, Start date: 10/19/12 12:41:00, Duration: 4 doses or times, Stop date: 10/20/12 0:00:00 hydromorpho 2012-0 No Shahbaz 0.5 mg, Memoria ne 8-23 Jackson 0.25 mL, l 17:41: Agudelo Route: Aric IVP, Drug form: INJ, Q5Min, Dosing Weight 109, kg, PRN Pain Score 7-10, Start date: 10/19/12 12:41:00, Duration: 5 doses or times, Stop date: 10/20/12 0:00:00 fentanyl 2012-0 No Shahbaz 25 Memor ia 8-23 Jackson microgram, l 17:41: Agudelo 0.5 mL, [place] Route: IVP, Drug form: INJ, Q5Min, Dosing Weight 109, kg, PRN Pain Score 4-6, Start date: 10/19/12 12:41:00, Duration: 4 doses or times, Stop date: 10/20/12 0:00:00 labetalol No Shahbaz 5 mg, 1 M emoria 10-19 Jackson mL, Route: l 17:41: Agudelo IVP, Drug Arben n 00 form: INJ, Q5Min, Dosing Weight 109, kg, PRN Elevated BP, Start date: 10/19/12 12:41:00, Duration: 5 doses or times, Stop date: 10/20/12 0:00:00 magnesium 2012- No Jacksno 2 gm, 50 M emoria sulfate 10-19 Shabbir mL, Route: l 15:00: Bubis IVPB, Drug Arben n 00 form: INJ, Q2H, Dosing Weight 109, kg, Total Dose = 6 gm, Start date: 10/19/12 10:00:00, Duration: 3 doses or times, Stop date: 10/19/12 14:00:00, For Mg = 1 - 1.4 mg/dLFor Mg = 1 - 1.4 mg/dL cefazolin No Cely W 2 gm, Memor ia 10-19 Munz Route: l 14:47: IVPB, [place] 00 ONCE, Dosing Weight 109, kg, Start date: 10/19/12 9:47:00, Duration: 1 doses or times, Stop date: 10/19/12 9:47:00 magnesium 2012- No Jackson 2 gm, 50 M emoria sulfate 10-17 Shabbir mL, Route: l 15:00: Bubis IVPB, Drug Arben n 00 form: INJ, Q2H, Dosing Weight 109, kg, Total Dose = 4 gm, Start date: 10/17/12 10:00:00, Duration: 2 doses or times, Stop date: 10/17/12 12:00:00, For Mg = 1.5 - 1.7 mg/dLFor Mg = 1.5 - 1.7 mg/dL Pneumovax No SYSTEM 0.5 ml, Mem oria 23 10-17 SYSTEM Route: IM, l 14:00: Drug Form: Aric 00 INJ, Start date: 10/17/12 9:00:00, Stop date: 10/17/12 9:00:00 NS 1,000 mL No Belgin 1,000 mL, Memoria 10-16 Camcioglu Rate: 40 l 15:14: ml/hr, Aric 00 Infuse over: 25 hr, Route: IV, Dosing Weight 109 kg, Total Volume: 1,000, Start date: 10/16/12 10:14:00, Duration: 30 day, Stop date: 11/15/12 10:13:00 OXYcodone 2012- No Ezio W 10 mg, 1 M emoria 10 mg 10-16 Bogomolny tab, l extended 02:00: Route: PO, Her stephenson release 00 Drug form: ERTAB, Q12H, Start date: 10/15/12 21:00:00, Duration: 30 day, Stop date: 11/14/12 9:00:00 Pneumovax 2012- No SYSTEM 0.5 ml, Mem oria 23 10-15 SYSTEM Route: IM, l 23:00: Drug Form: [place] 00 INJ, Daily, Start date: 10/15/12 18:00:00, Duration: 1 doses or times, Stop date: 10/15/12 18:00:00 Visipaque 2012- No Casa 85 mL, Memoria 320mg/ml 10-15 rakesh Colin Route: l 08:31: Tyree IVP, Drug He rmann Form: SOLN, Dosing Weight 109, kg, ONCALL, STAT, Start date: 10/15/12 3:31:00, Duration: 1 doses or times, Stop date: 10/16/12 0:00:00, Dose = 2.2ml/kg, Max dose = 100ml -- "To be infused by Radiology Staff ONLY"Dose = 2.2ml/kg, Max dose = 100ml -- "To be infused by Radiology Staff ONLY" [place] No Robert 1 tab, Memoria 10/325 oral 10-15 Chibueze Route: PO, l tablet 08:04: Osuagwu Drug Form: He rmann 00 TAB, Dosing Weight 109, kg, Q4H, PRN as needed for pain, Start date: 10/15/12 3:04:00, Duration: 30 day, Stop date: 11/14/12 3:03:00 docusate 2012- No Abran 100 mg, 1 Mem oria sodium 100 10-15 Mims cap, l mg oral 02:00: Route: PO, He rmann capsule 00 Drug form: CAP, Q12H, Start date: 10/14/12 21:00:00, Duration: 30 day, Stop date: 11/13/12 9:00:00 Insulin 2012- No Robert 2 unit, Memoria regular -18 Chibueze 0.02 mL, l 17:59: Osuagwu Route: Aric 00 SUB-Q, Drug form: SOLN, TID-Before Meals, Dosing Weight 109, kg, PRN Blood Glucose Results, Start date: 10/14/12 12:59:00, Duration: 30 day, Stop date: 11/13/12 12:58:00 Dextrose No Robert 25 gm, 50 Yoav yoselin 50% Syringe 10-14 Chibueze mL, Route: l 17:59: Osuagwu IVP, Drug Gabriela nn 00 Form: INJ, Dosing Weight 109, kg, PRN, PRN Blood Glucose Results, Start date: 10/14/12 12:59:00, Duration: 30 day, Stop date: 11/13/12 12:58:00 glucagon No Robert 1 mg, Memoria 18 Chibueze Route: IM, l 17:59: Osuagwu Drug form: Herm billie 00 PDR/INJ, PRN, Dosing Weight 109, kg, PRN Blood Glucose Results, Start date: 10/14/12 12:59:00, Duration: 30 day, Stop date: 11/13/12 12:58:00 [place] No Robert 1 tab, Memoria 10/325 oral 10-13 Chibueze Route: PO, l tablet 17:00: Osuagwu Drug Form: He rmann 00 TAB, Dosing Weight 109, kg, Q6H, Start date: 10/13/12 12:00:00, Duration: 30 day, Stop date: 11/12/12 6:00:00 lisinopril 2012- No Jackson 30 mg, 3 Memoria 8-17 Shabbir tab, l 14:00: Bubis Route: PO, Arben n 00 Drug form: TAB, Daily, Dosing Weight 109, kg, Start date: 10/13/12 9:00:00, Stop date: 11/11/12 9:00:00 magnesium 2012-0 No Lalo 2 gm, 50 Me moria sulfate 8-17 Gottig mL, Route: l 13:00: [place] IVPB, Drug Gabriela nn form: INJ, Q2H, Dosing Weight 109, kg, Start date: 10/13/12 8:00:00, Duration: 2 doses or times, Stop date: 10/13/12 10:00:00, For Mg = 1.5 - 1.7 mg/dLFor Mg = 1.5 - 1.7 mg/dL AMIODarone 2012- No Belgin 200 mg, 1 Memoria 8-17 [place] tab, l 02:00: Route: PO, Aric 00 Drug form: TAB, Q12H, Dosing Weight 109, kg, Start date: 10/12/12 21:00:00, Duration: 30 day, Stop date: 11/11/12 9:00:00 AMIODarone No Kia Moira 482 mL, Memoria 900 mg + 8-16 [place]ihan Rate: l Dextrose 5% 22:14: Infuse as H ermann in Water 00 directed, (Titrate) Dosing IV 482 mL Weight 109, kg, Route: IV, Total Volume: 500 mL, Stop date: 10/12/12 20:00:00, Replace Every: 24 hr Zofran No Ramona 4 mg, 2 Yoav yoselin 8-16 Monisha mL, Route: l 18:38: [place] IV, Drug Gabriela nn form: INJ, Q8H, Dosing Weight 109, kg, PRN Nausea, Start date: 10/12/12 13:38:00, Duration: 30 day, Stop date: 11/11/12 13:37:00 Neutra-Phos 2012- No Robert 2 pkt, Yoav yoselin oral powder 8-16 Chibueze Route: NG, l 17:00: Osuagwu Drug Form: Herm billie 00 PDR/REC, Dosing Weight 109, kg, Q6H, Start date: 10/12/12 12:00:00, Duration: 30 day, Stop date: 11/11/12 6:00:00 OXYcodone 5 2012- No Casa 5 mg, 1 Memoria mg 8-16 r Ashkan tab, l immediate 15:11: [place] Route: NG, [place] release 00 Drug form: TAB, Q6H, Dosing Weight 109, kg, PRN Pain, Start date: 10/12/12 10:11:00, Duration: 30 day, Stop date: 11/11/12 10:10:00 sodium 2012-0 No Preet 15 mmol, Memoria glycerophos 8-16 Laxamana 15 mL, l phate + 11:30: [place] Route: IV, Her stephenson Sodium 00 Drug form: Chloride INJ, ONCE, 0.9% IV 250 Start mL date: 10/12/12 6:30:00, Stop date: 10/12/12 6:30:00 sodium 2012-0 No Preet 15 mmol, Memoria phosphate 8-16 Laxamana Route: l 10:39: Sagun IVPB, [place] 00 ONCE, Dosing Weight 109, kg, Start date: 10/12/12 5:39:00, Duration: 1 doses or times, Stop date: 10/12/12 5:39:00, For PO4 = 2 - 2.4 mg/dLFor PO4 = 2 - 2.4 mg/dL magnesium 2012-0 No Kia Moira 2 gm, 50 Memoria sulfate 8-16 Holihan mL, Route: l 10:39: IVPB, Drug [place] 00 form: INJ, ONCE, Dosing Weight 109, kg, Total dose = 2 gm, Start date: 10/12/12 5:39:00, Duration: 1 doses or times, Stop date: 10/12/12 5:39:00 metoprolol 2012-0 No Preet 25 mg, 1 Mem oria tartrate 8-16 Laxamana tab, l 05:00: [place] Route: PO, Arben n 00 Drug form: TAB, Q6H, Dosing Weight 109, kg, Start date: 10/12/12 0:00:00, Stop date: 11/10/12 18:00:00 hydrALAZINE 2012-0 No Cameron 10 mg, 0.5 Memoria 8-15 Darrell mL, Route: l 22:05: Yinka IV, Drug Gabriela nn 00 form: INJ, Q4H, Dosing Weight 109, kg, PRN See Nurse's Notes, Start date: 10/11/12 17:05:00, Duration: 30 day, Stop date: 11/10/12 17:04:00, SBP > 160 Ancef No Norberto 2 gm, 50 Yoav yoselin 8-15 Newcomer mL, Route: l 20:00: Sandi IVPB, Drug Herm billie form: INJ, ABXQ8H, Dosing Weight 109, kg, Start date: 10/11/12 15:00:00, Duration: 1 day, Stop date: 10/12/12 7:00:00 Lovenox No Edmason Les 30 mg, 0.3 Memoria 8-15 mL, Route: l 14:39: SUB-Q, [place] Drug form: INJ, Q12H, Dosing Weight 109, kg, Start date: 10/11/12 9:39:00, Duration: 30 day, Stop date: 11/10/12 4:00:00 lisinopril No Lalo 10 mg, 1 M emoria 8-15 Gottig tab, l 14:00: [place] Route: PO, Gabriela nn Drug form: TAB, Daily, Dosing Weight 109, kg, Start date: 10/11/12 9:00:00, Duration: 30 day, Stop date: 11/09/12 9:00:00 sodium No [facility] 15 [facility], [facility] Holihan 15 mL, l phate + 11:25: Route: Sodium IVPB, Chloride ONCE, 0.9% IV 250 Dosing mL Weight 109, kg, Start date: 10/11/12 6:25:00, Duration: 1 doses or times, Stop date: 10/11/12 6:25:00, For PO4 = 2 - 2.4 mg/dL; Administer when K level > 3.9mEq/L. 3.9mEq/L. Dextrose No Robert 25 gm, 50 Yoav yoselin 50% Syringe 8-15 Chibueze mL, Route: l 11:08: Osuagwu IVP, Drug Gabriela nn Form: INJ, Dosing Weight 109, kg, PRN, PRN Abnormal Lab Result, Start date: 10/11/12 6:08:00, Duration: 30 day, Stop date: 11/10/12 6:07:00, For FSBG For FSBG < 40mg/dL Insulin No Robert 15 unit, Memori a regular 8-15 Chibueze 0.15 mL, l 11:08: Osuagwu Route: [place] 00 SUB-Q, Drug form: SOLN, PRN, Dosing Weight 109, kg, PRN Abnormal Lab Result, Start date: 10/11/12 6:08:00, Duration: 30 day, Stop date: 11/10/12 6:07:00, for FSBG > 250mg/dL 250mg/dL sodium No Kia Moira 15 mmol, M emoria glycerophos 8-15 Holihan 15 mL, l phate + 10:31: Route: [place] Sodium 00 IVPB, Chloride ONCE, 0.9% IV 250 Dosing mL Weight 109, kg, Start date: 10/11/12 5:31:00, Duration: 1 doses or times, Stop date: 10/11/12 5:31:00, For PO4 = 2 - 2.4 mg/dL; Administer when K level > 3.9mEq/L. 3.9mEq/L. magnesium No Kia Moira 2 gm, 50 Memoria sulfate 8-15 Holihan mL, Route: l 10:31: IVPB, Drug form: INJ, ONCE, Dosing Weight 109, kg, Total dose = 2 gm, Start date: 10/11/12 5:31:00, Duration: 1 doses or times, Stop date: 10/11/12 5:31:00 Sodium No Amy 250 mL, Yoav yoselin Chloride 8-15 Mai Rate: On l 0.9% 07:11: Lim call for [place] (titrate) 00 use with 250 mL blood product administra tion, Dosing Weight 109, kg, Route: IV, Total Volume: 250, Duration: 30 day, Stop date: 11/10/12 2:10:00, Replace Every: 8 hr simethicone No Lalo 20 mg, 0.3 Memoria 8-15 Gottig mL, Route: l 04:07: [place] PO, Drug form: DROP, Q6H, Dosing Weight 109, kg, PRN Gas, Start date: 10/10/12 23:07:00, Duration: 30 day, Stop date: 11/09/12 23:06:00 Phenergan 2013-0 No Lalo 12.5 mg, Me moria 8-15 Gottig 0.5 mL, l 03:39: [place] Route: Aric 00 IVPB, Drug form: INJ, ONCE, Dosing Weight 109, kg, PRN Nausea & Vomiting, Start date: 10/10/12 22:39:00, Stop date: 11/09/12 22:38:00 Zofran 2013-0 No Lalo 4 mg, 2 Memori a 8-15 Gottig mL, Route: l 03:39: [place] IVP, Drug Arben n 00 form: INJ, ONCE, Dosing Weight 109, kg, Start date: 10/10/12 22:39:00, Stop date: 10/10/12 22:39:00 Zofran 2013-0 No Lalo 4 mg, 2 Memori a 8-15 Gottig mL, Route: l 03:13: [place] IVP, Drug Arben n 00 form: INJ, ONCE, Dosing Weight 109, kg, Start date: 10/10/12 22:13:00, Stop date: 10/10/12 22:13:00 Protonix 2013-0 No Preet 40 mg, 1 Memor ia 8-15 Laxamana tab, l 02:00: [place] Route: PO, Arben n 00 Drug form: ECTAB, Q12H, Dosing Weight 109, kg, Start date: 10/10/12 21:00:00, Duration: 30 day, Stop date: 11/09/12 9:00:00 AMIODarone 2012-0 No Kia Moira 482 mL, Memoria 900 mg + 8-14 Holihan Rate: l Dextrose 5% 22:41: Infuse as H ermann in Water 00 directed, (Titrate) Dosing IV 482 mL Weight 109, kg, Route: IV, Total Volume: 500 mL, Duration: 30 day, Stop date: 11/09/12 17:40:00, Replace Every: 24 hr AMIODarone 2012-0 No Lalo 100 mL, Me moria 150 mg + 8-14 Gottig Rate: 600 l Dextrose 5% 22:40: [place] ml/hr, He rmann in Water IV 00 Infuse 100 mL over: 10.3 min, Route: IVPB, Dosing Weight 109 kg, Total Volume: 103, Start date: 10/10/12 17:40:00, Duration: 1 doses or times, Stop date: 10/10/12 17:49:00 metoprolol 2012-0 No Preet 25 mg, 1 Mem oria tartrate 10-10 Laxamana tab, l 17:26: [place] Route: NG, Arben morrissey Drug form: TAB, Q8H, Dosing Weight 109, kg, Start date: 10/10/12 12:26:00, Duration: 30 day, Stop date: 11/09/12 8:00:00 tramadol 2012-0 No Ezio W 50 mg, 1 Me moria 10-10 [place] tab, l 17:00: Route: PO, [place] 00 Drug form: TAB, Q6H, Dosing Weight 109, kg, Start date: 10/10/12 12:00:00, Stop date: 11/09/12 6:00:00 Dulcolax 2012-0 No Ramona 10 mg, 1 M emoria Laxative 10-10 Monisha supp, l 14:15: [place] Route: OR, Her stephenson Drug form: SUPP, Daily, Start date: 10/10/12 9:15:00, Duration: 30 day, Stop date: 11/09/12 9:00:00 Trilipix 2012-0 No Robert 135 mg, 1 Yoav yoselin 10-10 Chibueze cap, l 14:00: Osuagwu Route: PO, Herm Drug form: CAP, Daily, Dosing Weight 109, kg, Start date: 10/10/12 9:00:00, Stop date: 11/08/12 9:00:00 metoprolol 0 No Tho 5 mg, Memor ia 5 mg/5 ml 10-10 Donnie Route: IV, l INJ 10:17: Zuhair ONCE, Aric 00 Dosing Weight 109, kg, Start date: 10/10/12 5:17:00, Stop date: 10/10/12 5:17:00 metoprolol 0 No Ramona 5 mg, 5 Memoria 5 mg/5 ml 10-10 Monisha mL, Route: l INJ 04:05: [place] IVP, Drug Herm billie form: INJ, ONCE, Dosing Weight 109, kg, Start date: 10/09/12 23:05:00, Stop date: 10/09/12 23:05:00 metoprolol 2012-0 No Tho 5 mg, 5 Mem oria 5 mg/5 ml 8-14 Donnie mL, Route: l INJ 03:20: Zuhair IV, Drug Aric form: INJ, ONCE, Dosing Weight 109, kg, Start date: 10/09/12 22:20:00, Stop date: 10/09/12 22:20:00 atorvastati 2012-0 No Cameron 40 mg, 1 Me moria n 8-14 Darrell tab, l 02:00: Yinka Route: PO, Her stephenson 00 Drug form: TAB, Bedtime, Dosing Weight 109, kg, Start date: 10/09/12 21:00:00, Duration: 30 day, Stop date: 11/07/12 21:00:00 docusate 2012-0 No Abran 100 mg, 10 Me moria sodium 150 8-14 Mims mL, Route: l mg/15 mL 02:00: [place] PO, Drug stephenson oral liquid 00 form: LIQ, Q12H, Dosing Weight 109, kg, Start date: 10/09/12 21:00:00, Duration: 30 day, Stop date: 11/08/12 9:00:00 metoprolol 2012-0 No Tho 5 mg, 5 Mem oria 5 mg/5 ml 8-14 Donnie mL, Route: l INJ 01:54: Zuhair IV, Drug Aric 00 form: INJ, ONCE, Dosing Weight 109, kg, Start date: 10/09/12 20:54:00, Stop date: 10/09/12 20:54:00 pantoprazol 2012-0 No Preet 40 mg, Yoav yoselin e 8-13 Laxamana Route: l 21:30: [place] IVP, Drug Aric 00 form: INJ, Before Dinner, Dosing Weight 113.636, kg, Start date: 10/09/12 16:30:00, Duration: 30 day, Stop date: 11/07/12 16:30:00 metoprolol 2012-0 No Preet 5 mg, 5 Yoav yoselin 5 mg/5 ml 8-13 Laxamana mL, Route: l INJ 21:00: [place] IVP, Drug form: INJ, Q8H, Dosing Weight 109, kg, Start date: 10/09/12 16:00:00, Duration: 30 day, Stop date: 11/08/12 8:00:00 heparin 2012- No Mathieu Saldana 5,000 Mem oria 10-09 unit, 1 l 21:00: mL, Route: [place] SUB-Q, Drug form: INJ, Q8H, Dosing Weight 109, kg, Start date: 10/09/12 16:00:00, Duration: 30 day, Stop date: 11/08/12 8:00:00 Tylenol No Casa 975 mg, 3 Memoria 10-09 r Ashkan tab, l 21:00: [place] Route: PO, H ermann 00 Drug form: TAB, Q8H, Dosing Weight 109, kg, Start date: 10/09/12 16:00:00, Duration: 30 day, Stop date: 11/08/12 8:00:00 aspirin No Casa 325 mg, 1 Memoria 10-09 r Ashkan tab, l 20:28: [place] Route: PO, H ermann 00 Drug form: TAB, Daily, Dosing Weight 109, kg, Start date: 10/09/12 15:28:00, Duration: 30 day, Stop date: 11/08/12 9:00:00 bacitracin No Mathieu Saldana 1 appl, Memoria topical 10-09 Route: l 19:35: TOP, Aric 00 Daily, Drug form: OINT, PRN Wound Care, Start date: 10/09/12 14:35:00, Duration: 30 day, Stop date: 11/08/12 14:34:00 OXYcodone 5 No Ezio W 5 mg, 1 Memoria mg 10-09 [place] tab, l immediate 17:00: Route: PO, He rmann release Drug form: TAB, Q6H, Dosing Weight 109, kg, PRN as needed for pain, Start date: 10/09/12 12:00:00, Stop date: 11/08/12 6:00:00 Multiple 2012- Yes Robert 1 tab, PO, Mem oria Vitamins 10-09 Chibueze Daily, 30 l oral tablet 16:28: Osuagwu tab, Her stephenson 54 Substituti on Allowed, Maintenanc e, TAB pantoprazol No 40 mg, 1 Me moria e 40 mg 10-09 tab, PO, l oral 16:28: Daily, 30 [place] enteric 38 tab, coated Substituti tablet on Allowed, ECTAB vitamin E No 800 Memoria 400 intl 10-09 IntlUnit, l units oral 16:28: 2 cap, PO, H ermann capsule 20 Daily, 30 cap, Substituti on Allowed, CAP omega-3 No 2,000 mg, Memor ia polyunsatur 10-09 2 cap, l ated fatty 16:27: Substituti H ermann acids 1000 12 on Allowed mg oral capsule aspirin 325 No 325 mg, 1 M emoria mg tablet 10-09 tab, PO, l 16:26: Daily, 30 [place] 35 tab, Substituti on Allowed, TAB aspirin Yes Substituti Yoav yoselin 10-09 on Allowed l 16:26: [place] 24 atorvastati No 40 mg, 1 Me moria n 40 mg 10-09 tab, PO, l oral tablet 16:26: Daily, 30 H ermann 18 tab, Substituti on Allowed, TAB pioglitazon No 45 mg, 1 Me moria e 45 mg 10-09 tab, PO, l oral tablet 16:26: Daily, 30 H ermann 03 tab, Substituti on Allowed, TAB Trilipix Yes Robert 135 mg, 1 Yoav yoselin 135 mg oral 10-09 Chibueze cap, PO, l delayed 16:25: Osuagwu Daily, 30 He rmann release 48 cap, capsule Substituti on Allowed, ECCAP metFORmin No 1,000 mg, Mem oria 1000 mg 10-09 1 tab, PO, l oral tablet 16:25: BID, 30 Her stephenson 24 tab, Substituti on Allowed metoprolol No 50 mg, 1 Mem oria tartrate 50 10-09 tab, PO, l mg oral 16:25: BID, 60 [place] tablet 04 tab, Substituti on Allowed, TAB lisinopril No 10 mg, 1 Mem oria 10 mg oral 10-09 tab, PO, l tablet 16:24: Daily, 30 Arben n 32 tab, Substituti on Allowed, TAB bisacodyl No Dot A. 10 mg, 1 Memoria 10-09 [place] supp, l 15:50: Route: OR, [place] Drug form: SUPP, ONCE, Dosing Weight 109, kg, PRN Constipati on, Start date: 10/09/12 10:50:00 docusate No Dot A. 100 mg, Memoria 10-09 [place] Route: OR, l 14:00: Daily, Aric 00 Dosing Weight 109, kg, Start date: 10/09/12 9:00:00, Duration: 30 day, Stop date: 11/07/12 9:00:00 bisacodyl No Ramona 10 mg, 2 Memoria 10-09 Monisha tab, l 14:00: [place] Route: OR, Her stephenson Drug form: ECTAB, Daily, Dosing Weight 113.636, kg, Start date: 10/09/12 9:00:00, Duration: 30 day, Stop date: 11/07/12 9:00:00 pneumococca No SYSTEM 0.5 ml, M emoria l 23-valent 10-09 SYSTEM Route: IM, l vaccine 14:00: Drug Form: Herm billie INJ, Daily, Start date: 10/09/12 9:00:00, Duration: 1 doses or times, Stop date: 10/09/12 9:00:00 Dextrose No Dot 25 gm, 50 M emoria 50% Syringe 10-09 Billie [place] mL, Route: l 10:22: IVP, Drug Form: INJ, Dosing Weight 109, kg, PRN, PRN Abnormal Lab Result, Start date: 10/09/12 5:22:00, Duration: 30 day, Stop date: 11/08/12 5:21:00, For FSBG For FSBG < 40mg/dL Insulin No Dot 6 unit, Yoav yoselin regular 10-09 Billie [place] 0.06 mL, l 10:22: Route: [place] 00 SUB-Q, Drug form: SOLN, PRN, Dosing Weight 109, kg, PRN Abnormal Lab Result, Start date: 10/09/12 5:22:00, Duration: 30 day, Stop date: 11/08/12 5:21:00, For FSBG 141mg/dL - 160mg/dLFo r FSBG 141mg/dL - 160mg/dL Lovenox 2012-0 No Casa 30 mg, 0.3 Memoria 8-13 r Ashkan mL, Route: l 09:00: [place] SUB-Q, Gabriela nn Drug form: INJ, [id number], Dosing Weight 109, kg, Start date: 10/09/12 4:00:00, Duration: 30 day, Stop date: 11/07/12 16:00:00 docusate 2012-0 No Casa 100 mg, 10 Memoria 8- r Ashkan mL, Route: l 02:00: Tyree NG, Drug Her stephenson 00 form: LIQ, Q12H, Dosing Weight 113.636, kg, Start date: 10/08/12 21:00:00, Stop date: 11/07/12 9:00:00 magnesium 2012-0 No Abran 2 gm, Memori a sulfate 10-08 Mims Route: l 23:44: [place] IVPB, Drug Gabriela nn form: SOLN, ONCE, Dosing Weight 109, kg, Start date: 10/08/12 18:44:00, Duration: 1 doses or times, Stop date: 10/08/12 18:44:00, For Mg = 1.8 - 2 mg/dLFor Mg = 1.8 - 2 mg/dL magnesium 2012-0 No Ramona 2 gm, 50 Memoria sulfate 10-08 Monisha mL, Route: l 23:00: [place] IVPB, Drug Her stephenson 00 form: INJ, Q2H, Dosing Weight 113.636, kg, Start date: 10/08/12 18:00:00, Duration: 2 doses or times, Stop date: 10/08/12 20:00:00, For Mg = 1.5 - 1.7 mg/dLFor Mg = 1.5 - 1.7 mg/dL normal 2012-0 No Preet 1,000 mL, Memori a saline 0.9% 10-08 Laxamana Rate: 75 l IV 1,000 mL 22:35: [place] ml/hr, Her stephenson 00 Infuse over: 13.3 hr, Route: IV, Dosing Weight 113.636 kg, Total Volume: 1,000, Start date: 10/08/12 17:35:00, Duration: 30 day, Stop date: 11/07/12 17:34:00 lidocaine-e 2012- No Gavin M 20 ml, M alexandre pi 10-08 Aamir Route: l 1%-[id number] 21:40: MISC, Drug [place] 00 Form: SOLN, Dosing Weight 113.636, kg, ONCE, Start date: 10/08/12 16:40:00, Stop date: 10/08/12 16:40:00 Saline No Ramona 5 ml, Memori a Flush 0.9% 10-08 Monisha Route: l 21:01: [place] IVP, Drug Herm Form: INJ, Dosing Weight 113.636, kg, PRN, PRN Line Flush, Start date: 10/08/12 16:01:00, Duration: 30 day, Stop date: 11/07/12 16:00:00 midazolam No Preet IV, Start Mem oria 50 mg 10-08 Laxamana date: l 20:59: [place] 10/08/12 Aric 00 15:59:00, Duration: 30, 50 ml, 113.636 Sublimaze No Robert IV, Start Mem oria 1,000 10-08 Chibueze date: l microgram 20:58: Osuagwu 10/08/12 H ermann 00 15:58:00, Duration: 30, 20 ml, 113.636 FENTanyl No Ramona 1,000 Yoav yoselin 1000 mcg in 10-08 Monisha microgram, l 20 mL 20:56: [place] 20 mL, Arben n (titrate) 00 Rate: IV 1,000 Titrate as microgram directed, Dosing Weight 113.636, kg, Route: IV, Total Volume: 20 ml, Duration: 30 day, Stop date: 11/07/12 15:55:00, Replace Every: 24 hr Versed 50 No Ramona 50 mg, 50 Memoria mg in NS 50 10-08 Monisha mL, Rate: l ml 20:55: [place] Titrate as Her stephenson (titrate) 00 directed, IV 50 mg Dosing Weight 113.636, kg, Route: IV, Total Volume: 50 ml, Duration: 30 day, Stop date: 11/07/12 15:54:00, Replace Every: 24 hr FENTanyl No Ramona 1,000 Yoav yoselin 1000 mcg in 8-12 Monisha microgram, l 20 mL 20:39: [place] 20 mL, Arben n (titrate) 00 Rate: IV 1,000 Titrate as microgram directed, Dosing Weight 113.636, kg, Route: IV, Total Volume: 20 ml, Duration: 30 day, Stop date: 11/07/12 15:38:00, Replace Every: 24 hr Versed 50 2012- No Ramona 50 mg, 50 Memoria mg in NS 50 8- Monisha mL, Rate: l ml 20:39: [place] Titrate as Her stephenson (titrate) 00 directed, IV 50 mg Dosing Weight 113.636, kg, Route: IV, Total Volume: 50 ml, Duration: 30 day, Stop date: 11/07/12 15:38:00, Replace Every: 24 hr Omnipaque 2012- No Hemanth G 225 mL, Memoria 350mg/ml 10-08 Luigi Route: l 19:24: IVP, Drug Form: SOLN, Dosing Weight 113.636, kg, ONCALL, STAT, Start date: 10/08/12 14:24:00, Duration: 1 doses or times, Dose = 2.2ml/kg, Max dose = 150ml -- "To be infused by Radiology Staff ONLY"Dose = 2.2ml/kg, Max dose = 150ml -- "To be infused by Radiology Staff ONLY" fentanyl No Marli A Route: IV, Memoria 10-08 Kozar ONCE, l 16:40: Dosing Weight 113.636, kg, Start date: 10/08/12 11:40:00, Stop date: 10/08/12 11:40:00 Versed No Marli A 3 mg, Yoav yoselin 10-08 Kozar Route: l 16:40: IVP, ONCE, Aric 00 Dosing Weight 113.636, kg, Priority: STAT, Start date: 10/08/12 11:40:00, Stop date: 10/08/12 11:40:00 Versed 50 No Ramona 50 mg, 50 Memoria mg in NS 50 10-08 Monisha mL, Rate: l ml 16:38: [place] Titrate as Her stephenson (titrate) 00 directed, IV 50 mg Dosing Weight 113.636, kg, Route: IV, Total Volume: 50 ml, Duration: 30 day, Stop date: 11/07/12 11:37:00, Replace Every: 24 hr FENTanyl No Ramona 1,000 Yoav yoselin 1000 mcg in 10-08 Monisha microgram, l 20 mL 16:38: [place] 20 mL, Arben n (titrate) 00 Rate: IV 1,000 Titrate as microgram directed, Dosing Weight 113.636, kg, Route: IV, Total Volume: 20 ml, Duration: 30 day, Stop date: 11/07/12 11:37:00, Replace Every: 24 hr succinylcho No Hemanth G 150 mg, Memoria line 10-08 [facility] Route: IV, l 16:03: ONCE, Dosing Weight 113.636, kg, Start date: 10/08/12 11:03:00, Stop date: 10/08/12 11:03:00 etomidate No Hemanth G 30 mg, M emoria 10-08 Luigi Route: IV, l 16:02: ONCE, Dosing Weight 113.636, kg, Start date: 10/08/12 11:02:00, Stop date: 10/08/12 11:02:00 Saline No Marli A 5 ml, Yoav yoselin Flush 0.9% 10-08 Kozar Route: l 15:22: IVP, Drug Form: INJ, kg, PRN, PRN Line Flush, Administer at least once every 12 hours, Start date: 10/08/12 10:22:00, Duration: 30 day, Stop date: 11/07/12 10:21:00 pneumococca No SYSTEM 0.5 ml, M emoria l 23-valent 09-28 SYSTEM Route: IM, l vaccine 14:00: Drug Form: Herm INJ, Start date: 09/29/11 9:00:00, Stop date: 09/29/11 9:00:00 Vital Signs Vital Name Observation Time Observation Value Comments Source Systolic (mm Hg) 2019-10-07 21:00:00 Yoav rial Aric Diastolic (mm Hg) 2019-10-07 21:00:00 Mem orial Aric Respitory Rate 2019-10-07 21:00:00 Memori al [place] Heart Rate 2019-10-07 21:00:00 [facility] [place] Temperature Oral (F) 2019-10-07 21:00:00 97.9 F [facility] [place] Systolic (mm Hg) 2019-10-07 17:26:00 Yoav rial Aric Diastolic (mm Hg) 2019-10-07 17:26:00 Mem orial [place] Heart Rate 2019-10-07 17:26:00 [facility] [place] Temperature Oral (F) 2019-10-07 17:26:00 97.7 F [facility] Aric Respitory Rate 2019-10-07 17:26:00 Memori al [place] Systolic (mm Hg) 2019-10-07 14:55:00 Yoav rial Aric Diastolic (mm Hg) 2019-10-07 14:55:00 Mem orial Raic Temperature Oral (F) 2019-10-07 13:13:00 97.6 F [facility] Aric Heart Rate 2019-10-07 13:13:00 [facility] [place] Respitory Rate 2019-10-07 13:13:00 Memori al [place] Temperature Oral (F) 2019-10-07 05:00:00 97.2 F [facility] Aric Heart Rate 2019-10-07 05:00:00 [facility] Aric Respitory Rate 2019-10-07 05:00:00 Memori al [place] Systolic (mm Hg) 2019-10-07 05:00:00 Yoav rial Aric Diastolic (mm Hg) 2019-10-07 05:00:00 Mem orial [place] Temperature Oral (F) 2019-10-07 01:18:00 98.2 F [facility] [place] Heart Rate 2019-10-07 01:18:00 [facility] Aric Respitory Rate 2019-10-07 01:18:00 Memori al Aric Systolic (mm Hg) 2019-10-07 01:18:00 Yoav rial Aric Diastolic (mm Hg) 2019-10-07 01:18:00 Mem orial [place] Temperature Oral (F) 2019-10-06 21:00:00 98.0 F [facility] [place] Heart Rate 2019-10-06 21:00:00 [facility] [place] Respitory Rate 2019-10-06 21:00:00 Memori al Aric Systolic (mm Hg) 2019-10-06 21:00:00 Yoav rial [place] Diastolic (mm Hg) 2019-10-06 21:00:00 Mem orial Aric Height 2019-10-05 01:03:00 175.26 cm [facility] Aric Weight 2019-10-05 01:03:00 [facility] [place] BMI Calculated 2019-10-05 01:03:00 Memori al [place] Height 2019-10-04 16:42:00 175.26 cm [facility] [place] BMI Calculated 2019-10-04 16:42:00 Memori al [place] Weight 2019-10-04 16:42:00 [facility] [place] Height 2019-09-09 15:08:00 175.26 cm [facility] Aric Weight 2019-09-09 15:08:00 [facility] [place] BMI Calculated 2019-09-09 15:08:00 Memori al [place] Temperature Oral (F) 2012-11-16 01:00:00 98.5 F [facility] Aric Heart Rate 2012-11-16 01:00:00 [facility] [place] Respitory Rate 2012-11-16 01:00:00 Memori al Aric Diastolic (mm Hg) 2012-11-16 01:00:00 Mem orial Aric Systolic (mm Hg) 2012-11-16 01:00:00 Yoav rial Aric Heart Rate 2012-11-15 13:07:00 [facility] Aric Temperature Oral (F) 2012-11-15 13:07:00 98.2 F [facility] Aric Systolic (mm Hg) 2012-11-15 13:07:00 Yoav rial [place] Diastolic (mm Hg) 2012-11-15 13:07:00 Mem orial [place] Respitory Rate 2012-11-15 13:07:00 Memori al Aric Diastolic (mm Hg) 2012-11-15 01:10:00 Mem orial [place] Systolic (mm Hg) 2012-11-15 01:10:00 Yoav rial Aric Respitory Rate 2012-11-15 01:10:00 Memori al Aric Heart Rate 2012-11-15 01:10:00 [facility] Aric Temperature Oral (F) 2012-11-15 01:10:00 98.4 F [facility] Aric Height 2012-10-27 14:28:00 172.72 cm [facility] [place] Weight 2012-10-27 14:28:00 [facility] Aric Height 2012-10-27 03:46:00 177.8 cm [facility] [place] Temperature Oral (F) 2012-10-27 01:15:00 99.0 F [facility] Aric Systolic (mm Hg) 2012-10-27 01:15:00 Yoav rial Aric Respitory Rate 2012-10-27 01:15:00 Memori al [place] Diastolic (mm Hg) 2012-10-27 01:15:00 Mem orial [place] Heart Rate 2012-10-27 01:15:00 [facility] Aric Diastolic (mm Hg) 2012-10-26 20:00:00 Mem orial [place] Temperature Oral (F) 2012-10-26 20:00:00 98.6 F [facility] [place] Heart Rate 2012-10-26 20:00:00 [facility] [place] Respitory Rate 2012-10-26 20:00:00 Memori al Aric Systolic (mm Hg) 2012-10-26 20:00:00 Yoav rial [place] Heart Rate 2012-10-26 16:00:00 [facility] [place] Systolic (mm Hg) 2012-10-26 16:00:00 Yoav rial [place] Diastolic (mm Hg) 2012-10-26 16:00:00 Mem orial [place] Respitory Rate 2012-10-26 16:00:00 Memori al Aric Temperature Oral (F) 2012-10-26 12:00:00 99.2 F [facility] [place] Weight 2012-10-08 22:56:00 [facility] Height 2012-10-08 22:56:00 177.8 cm [facility] [place] Height 2012-10-08 15:24:00 167.64 cm [facility] Weight 2012-10-08 15:24:00 [facility] Procedures Procedure Date / Time Performed Performing Clinician Sour e [id number] 2019-10-18 00:00:00 ENCPL [id number] 2019-10-18 00:00:00 ENCPL [id number] 2019-10-18 00:00:00 ENCPL [id number] 2019-10-18 00:00:00 ENCPL [id number] 2019-10-18 00:00:00 ENCPL [id number] 2019-10-18 00:00:00 ENCPL [id number] 2019-10-18 00:00:00 ENCPL [id number] 2019-10-18 00:00:00 ENCPL [id number] 2019-10-18 00:00:00 ENCPL [id number] 2019-10-18 00:00:00 ENCPL [id number] 2019-10-18 00:00:00 ENCPL 0HBRXZZ 2019-10-11 00:00:00 ENCPL 0HBRXZZ 2019-10-11 00:00:00 ENCPL 0HBRXZZ 2019-10-11 00:00:00 ENCPL 0HBRXZZ 2019-10-11 00:00:00 ENCPL 0HBRXZZ 2019-10-11 00:00:00 ENCPL 0HBRXZZ 2019-10-11 00:00:00 ENCPL 0HBRXZZ 2019-10-11 00:00:00 ENCPL 0HBRXZZ 2019-10-11 00:00:00 ENCPL 0HBRXZZ 2019-10-11 00:00:00 ENCPL 0HBRXZZ 2019-10-11 00:00:00 ENCPL 0HBRXZZ 2019-10-11 00:00:00 ENCPL 0HBRXZZ 2019-10-11 00:00:00 ENCPL 0HBRXZZ 2019-10-11 00:00:00 ENCPL 0HBRXZZ 2019-10-11 00:00:00 ENCPL 0HBRXZZ 2019-10-11 00:00:00 ENCPL 0HBRXZZ 2019-10-11 00:00:00 ENCPL ORIF - Open reduction and 2011-10-09 05:00:00 Me [facility] internal fixation of fracture CABG x 2 - Coronary [facility] artery bypass grafts x 2 Finger operation [facility] ORIF - Open reduction and [facility] [place] internal fixation of fracture CABG x 2 - Coronary [facility] artery bypass grafts x 2 Finger operation [facility] Plan of Care Planned Activity Planned Date Details Comments Source Future Scheduled 2027-12-01 COLONOSCOPY SCREENING [facility] 00:00:00 [code = COLONOSCOPY SCREENING] Future Scheduled 2019-11-28 INFLUENZA VACCINE [place] [facility] 00:00:00 [code = INFLUENZA VACCINE] Future Scheduled 2011-12-23 65+ PNEUMOCOCCAL [facility] 00:00:00 VACCINE (1 of 2 - PCV13) [code = 65+ PNEUMOCOCCAL VACCINE (1 of 2 - PCV13)] Future Scheduled 1996 SHINGLES VACCINES (#1) [place] [facility] 00:00:00 [code = SHINGLES VACCINES (#1)] Future Scheduled 1956 DIABETIC FOOT EXAM [place] [facility] 00:00:00 [code = DIABETIC FOOT EXAM] Future Scheduled 1955 URINE MICROALBUMIN [place] [facility] 00:00:00 [code = URINE MICROALBUMIN] Future Scheduled 1945 DIABETIC RETINAL EYE [place] [facility] 00:00:00 EXAM [code = DIABETIC RETINAL EYE EXAM] Encounters Start End Encounter Admission Attending Care Care Encounter Source Date/Time Date/Time Type Type Clinicians Facility Department ID 2019-11-07 2019-11-[address] [facility] [id number] 00:00:00 00:00:00 [facility] [id number] [place] [id number] Inder [phone] nal 044 Office Building One 2019-11-05 2019-11-05 Orders Doctor CELY [id number] 00:00:00 00:00:00 Only Unassigned, EMILY [id number] [place] [facility] [id number] [id number] 2019-11-05 2019-11-05 Telephone Abel [facility] [id number] 00:00:00 [facility]:00:00 [facility] [id number] [place] [id number] Professio [id number] nal 044 Office Building One 2019-10-31 2019-10-31 Office Abel [facility] [id number] 08:56:21 09:11:21 Visit Ken Murray [id number] [place] [id number] [facility] [id number] [address] 2019-10-25 2019-10-25 Outpatient CYDNEY MCNAMARA ENCGEN [id number] ENCGEN 00:00:00 00:00:00 ADMISSION KEN 2019-10-04 2019-10-07 Outpatient [place], MHPL MHPL [id number] 11:41:34 19:00:00 Jaquan 2019-10-04 2019-10-04 Outpatient [place], MHPL MHPL [id number] 11:41:34 11:41:34 Jaquan 2019-10-04 2019-10-04 Inpatient E MHBL MED [id number] MHBL 13:39:00 11:41:00 2019-09-10 2019-09-[address] MHPL [id number] 09:02:00 23:59:00 Hemalatha 00 Anne 2019-09-10 2019-09-10 Outpatient MHBL MED 7500 MHBL 09:02:00 09:02:00 Results Test Description Test Time Test Comments Results Result Comments Source CHEM PANEL 2019-10-07 132 [facility] 10:03:00 CHEM PANEL 2019-10-07 115 [facility] 10:03:00 CHEM PANEL 2019-10-07 3.14 [facility] 10:03:00 CHEM PANEL 2019-10-07 133 [facility] 10:03:00 CHEM PANEL 2019-10-07 3.4 [facility] 10:03:00 CHEM PANEL 2019-10-07 94 [facility] 10:03:00 CHEM PANEL 2019-10-07 27 [facility] 10:03:00 CHEM PANEL 2019-10-07 8.5 [facility] 10:03:00 CHEM PANEL 2019-10-07 15.4 [facility] 10:03:00 CHEM PANEL 2019-10-07 19 [facility] 10:03:00 HEMATOLOGY 2019-10-07 72.8 [facility] 10:03:00 HEMATOLOGY 2019-10-07 13.0 [facility] 10:03:00 HEMATOLOGY 2019-10-07 9.4 [facility] 10:03:00 HEMATOLOGY 2019-10-07 3.6 [facility] 10:03:00 HEMATOLOGY 2019-10-07 1.2 [facility] 10:03:00 HEMATOLOGY 2019-10-07 6.0 [facility] 10:03:00 HEMATOLOGY 2019-10-07 1.1 [facility] 10:03:00 HEMATOLOGY 2019-10-07 0.8 [facility] 10:03:00 HEMATOLOGY 2019-10-07 0.3 [facility] 10:03:00 HEMATOLOGY 2019-10-07 0.1 [facility] 10:03:00 HEMATOLOGY 2019-10-07 8.3 [facility] 10:03:00 HEMATOLOGY 2019-10-07 2.74 [facility] 10:03:00 HEMATOLOGY 2019-10-07 8.5 [facility] 10:03:00 HEMATOLOGY 2019-10-07 24.7 [facility] 10:03:00 HEMATOLOGY 2019-10-07 90.2 [facility] 10:03:00 HEMATOLOGY 2019-10-07 10:03:00 Test Item Value Reference Range Interpretation Comme nts MCH (test code = MCH) 31.0 pg 27.0-31.0 [facility] SnguqmtVAGCTEUEJY1581-00-91 10:03:0034.3[facility]ann[facility]MATOLOGY 2019-10-07 10:03:0016.3[facility] IbngarpPPNBQYYPKT8909-36-65 10:03:54465Uaddnwej PgsmvvhJWUPNOFXBQ9963-47-52 10:03:007.5[facility] HermannCHEM RHYBH4296-13-20 13:34:83800Jcydspra HermannCHEM NRWRU8361-82-36 13:34:60068Nlvnfpox HermannCHEM GXYUH6760-21-91 13:34:003.11[facility] HermannCHEM POPHY2581-01-50 13:34:45031 [facility]annCHEM ZFZIH2841-28-73 13:34:003.4[facility]annCHEM PANEL 2019-10-06 13:34:0098[facility] HermannCHEM OYRDK1545-63-71 13:34:0028[facility]annCHEM BDWUA2185-47-02 13:34:0010.4[facility] HermannCHEM YYIFN3111-19-09 13:34:008.5[facility] HermannCHEM OQIGM5159-27-32 13:34:00 Test Item Value Reference Range Interpretation Comments B/C Ratio (test code = B/C Ratio) 37 1 6-25 [facility]annCHEM UDVIZ4273-57-73 13:34:005.9[facility] HermannCHEM PANEL 2019-10-06 13:34:001.5[facility]annCHEM WYJIP6314-96-65 13:34:004.4[facility]annCHEM WSZZJ0722-97-74 13:34:00 Test Item Value Reference Range Interpretation Comments A/G Ratio (test code = A/G Ratio) 0.3 1 0.7-1.6 [facility]annCHEM TBCQB0057-49-16 13:34:0015[facility]annCHEM PANEL 2019-10-06 13:34:0024[facility] HermannCHEM JHAHB1811-24-38 13:34:00<10[facility]annCHEM HRYPP4500-26-69 13:34:002.1[facility]annCHEM WXNFC6451-29-26 13:34:0019[facility]annCHEM EEYDG2805-63-38 13:34:001.8[facility]annCHEM LIAFO7140-47-39 13:34:004.1[facility] FfgulmlNUSIBYDHOS2716-98-80 13:34:0010.5 [facility] DptdvrqOCUZRYYZLC8594-10-95 13:34:002.97[facility]annHEMATOLOGY 2019-10-06 13:34:009.1[facility] QpdhmcvZMJGUSXAPL0198-76-80 13:34:0026.8[facility] WdmrsnjUOFSKPVXBC8416-59-83 13:34:0090.3[facility] EhzwtpdKMALZUWZLE1760-03-55 13:34:00 Test Item Value Reference Range Interpretation Comments MCH (test code = MCH) 30.5 pg 27.0-31.0 [facility] XcumtlpOJCLPLLHYQ0806-48-11 13:34:0033.8[facility] HermannHEMATOLOGY 2019-10-06 13:34:0016.3[facility] TywkdqkTOGUNAZHOQ4746-12-35 13:34:44236Dbzgtzph PxpnpubTYCQIQTHDW7953-77-86 13:34:008.0[facility] YjlocowEWZZUPETTA5701-63-30 13:34:0077.3[facility] KhquknkFSEIITAOXH7009-01-00 13:34:0011.4[facility] [place] XALLDJGVBY3063-01-52 13:34:008.1[facility] JkkbxxnAIWCVCEBRP0161-41-43 13:34:002.2 [facility] NouhpzpXGNOEOKTNV9033-37-18 13:34:001.0[facility] HermannHEMATOLOGY 2019-10-06 13:34:008.1[facility] ZmfooryTWQASRQWGY1347-00-48 13:34:001.2[facility] RbxcterKVGGFWTYVG0970-49-47 13:34:000.8[facility] RpcbaknMWRHAAQALQ7014-36-72 13:34:000.2[facility] UasuizhFGRKYNDDBS7527-73-73 13:34:000.1[facility]annBL[facility]OD BANK QHCSFEU9113-33-67 04:35:57Product available 4(10/05/19 11:35 PM)[facility] OwftweaZLDZFJSPDX6084-51-56 03:20:0011.5[facility] YvfpkqbXMZGMGWDQT9421-06-88 03:20:002.57[facility] IanymnsDRLXCWIWQR8919-16-29 03:20:007.8[facility] NGAGQYXALN1980-22-29 03:20:0023.1[facility] IfbjzulBFLEFWMPXO1584-68-55 03:20:00 90.2[facility] YrxzhirWKIDLSQKIY4338-76-84 03:20:00 Test Item Value Reference Range Interpretation Comments MCH (test code = MCH) 30.2 pg 27.0-31.0 [facility] EoucvopNLXHUJCHPK0952-94-25 03:20:0033.5[facility] HermannHEMATOLOGY 2019-10-06 03:20:0016.6[facility] FgjypnjGEENGJDLRI9615-40-72 03:20:80064Ppwvfbkk DvwhrulDPNHJDVVVZ9278-16-32 03:20:007.8[facility] HcsmcngQKYHANLEWO8289-26-76 03:20:0080.2[facility] YcwbijpULJUDZXVNW9211-57-53 03:20:009.9[facility] XUPVAVZCQK4736-76-66 03:20:007.0[facility] DubsjecZNMTBBSKZS8143-45-05 03:20:001.8 [facility] ZegipdpIYPKOMNZGS4319-78-06 03:20:001.1[facility] HermannHEMATOLOGY 2019-10-06 03:20:009.2[facility] QfuihjyMNLLMXUJUL8369-11-37 03:20:001.1[facility] UxvuyrdVNOXDIWQZK8997-94-23 03:20:000.8[facility] XwthojhQKSEFEHYWP6493-91-89 03:20:000.2[facility] CjdocrbSTTNJQSWIK8827-50-15 03:20:000.1[facility]annBLOOD BANK EWLNSQW0355-71-00 19:07:39Product available 5(10/05/19 2:07 PM)[facility] SeavlnoCTXFYKRPVT7790-60-14 18:06:007.6[facility] UudbkmpNRBVBXNOZR9790-89-34 18:06:0022.4[facility] HermannCARDIAC WTDOOHF5387-39-68 15:03:00<1.0[facility] HermannCARDIAC PSNSROW1288-74-57 15:03:0018[facility]annCARDIAC ENZYMES 2019-10-05 15:03:000.27[facility]annCARDIAC LOUHHNU2573-28-96 15:03:00<5.6 [facility]annBL[facility]OD BANK AOJCHUI7287-29-06 12:30:24Product available 6(10/05/19 7:30 AM)[facility] HermannCARDIAC XBVULJQ7664-01-21 11:05:000.28[facility] CHEM TJFRZ9389-67-22 11:05:85592Uzglagfa HermannCHEM TCXZJ3768-06-20 11:05:99391 [facility]annCHEM CDYOX6267-75-25 11:05:003.07[facility] HermannCHEM PANEL 2019-10-05 11:05:61368Lghuxrod HermannCHEM TYDSR0692-54-45 11:05:003.5[facility] HermannCHEM BAGDH5842-97-88 11:05:22866Xtfzovtv HermannCHEM BKMCW5602-53-60 11:05:0027[facility]annCHEM ZNWPU1024-11-88 11:05:0011.5[facility] HermannCHEM ORUAS6096-51-91 11:05:007.9[facility] HermannCHEM FZODW3146-98-86 11:05:00 Test Item Value Reference Range Interpretation Comments B/C Ratio (test code = B/C Ratio) 35 1 6-25 [facility]annCHEM PWSJD0715-33-14 11:05:005.3[facility] HermannCHEM PANEL 2019-10-05 11:05:001.4[facility] HermannCHEM KBUXG7328-43-52 11:05:003.9[facility] HermannCHEM NMMAI3241-61-13 11:05:00 Test Item Value Reference Range Interpretation Comments A/G Ratio (test code = A/G Ratio) 0.4 1 0.7-1.6 [facility]annCHEM FSKDJ3384-84-84 11:05:0017[facility] HermannCHEM PANEL 2019-10-05 11:05:0023[facility] HermannCHEM VCAVR5212-14-29 11:05:00<10[facility] HermannCHEM TUGGD9625-84-86 11:05:002.4[facility] HermannCHEM YVLSD5920-60-43 11:05:0019[facility] HermannCHEM RCQHB0014-64-98 11:05:001.8[facility] [place] ACHUOZFPCY6072-03-89 11:05:0077.2[facility] JdeggetJZJUCFQZOP1984-78-86 11:05:00 13.1[facility] MxuidqaLQBTSNEEWJ5764-65-73 11:05:007.0[facility] HermannHEMATOLOGY 2019-10-05 11:05:001.5[facility] DmevwfsJORKGKMPCS1633-54-50 11:05:001.2[facility] JlghsunQNXRZHDWRR1188-13-38 11:05:007.2[facility] CjrpoimRNKQZWWIZQ5538-46-33 11:05:001.2[facility] CfybspcJWDOUXTLFI4708-43-78 11:05:000.7[facility] UCKBCPATWN4014-53-15 11:05:000.1[facility] BzqlzubTGMUJRKWDH3897-97-57 11:05:000.1 [facility] JayzmuwPRCWRRYLGL8803-86-87 11:05:009.4[facility] HermannHEMATOLOGY 2019-10-05 11:05:002.07[facility] YnkdhhkTQCMXDQWNZ9195-72-47 11:05:0092.5[facility] XznokccNNXSHZJUWK9941-51-22 11:05:00 Test Item Value Reference Range Interpretation Comments MCH (test code = MCH) 31.4 pg 27.0-31.0 [facility] RvvmugmIGYZYXPNWX6867-08-91 11:05:0034.0[facility] HermannHEMATOLOGY 2019-10-05 11:05:0016.2[facility] MefgwacBRQACHQVEW1810-33-44 11:05:32063Bqsdkcar QwauhbsCPEGHEYGMU6273-86-39 11:05:008.0[facility] TgcykshIGBBSGYHNX4579-57-47 05:45:00Not Detected (10/05/19 12:45 AM)[facility]annCARDIAC VRYQCJC0626-70-57 01:22:000.31[facility] HermannCARDIAC WUEYNAQ0241-28-76 01:22:02586Ypaxfahy HermannURINE AND MRKZB6144-04-81 18:39:00Yellow *NA*(10/04/19 1:39 PM)[facility]ann[facility] AND DIFEN2818-11-03 18:39:00Clear (10/04/19 1:39 PM)[facility] URINE AND XAQKB1439-92-08 18:39:00 Test Item Value Reference Range Interpretation Comments UA Spec Grav (test code = UA Spec 1.008 1 Grav) [facility] AND AYTJD1562-19-02 18:39:00 Test Item Value Reference Range Interpretation Comments UA pH (test code = UA pH) 5.0 1 5.0-8.0 [facility] EENKY3355-00-95 18:39:00Negative *NA*(10/04/19 1:39 PM) [facility] UGBDL5293-31-83 18:39:00Negative (10/04/19 1:39 PM) [facility] KGTKD2440-89-90 18:39:00Negative (10/04/19 1:39 PM) [facility] HUQLV2266-64-18 18:39:00Negative (10/04/19 1:39 PM) [facility] SGGBR8994-31-81 18:39:009[facility] AND VSKIK9235-59-01 18:39:001[facility]annURINE QQZK3800-57-25 18:39:0023.30 [facility] LJPC1396-29-29 18:39:0013.6[facility] CHEM 2019-10-04 18:39:00 Test Item Value Reference Range Interpretation Comments U Prot/Creat (test code = U 0.58 1 Prot/Creat) [facility] QVQZ4042-37-24 18:39:51056Ckbhcwtd HermannURINE CHEM 2019-10-04 18:39:0097[facility]annURINE RBOB6127-41-49 18:39:0019.2[facility]annURINE JGKO0949-75-06 18:39:43990Foolqzsq HermannURINE AND DESJR2962-79-88 18:16:00Positive *ABN*(10/04/19 1:16 PM)[facility]annBLOOD BANK RESULTS 2019-10-04 17:14:00Negative (10/04/19 12:14 PM)[facility] HermannCHEM PANEL 2019-10-04 17:14:001.4[facility] HermannCHEM OSAIP3608-37-60 17:14:0016[facility] HermannCHEM QWCWR4754-61-70 17:14:0023[facility] HermannCHEM DAYMG5010-76-59 17:14:00 Test Item Value Reference Range Interpretation Comments B/C Ratio (test code = B/C Ratio) 32 1 6-25 [facility]annCHEM FWYZS1889-05-52 17:14:005.5[facility] HermannCHEM PANEL 2019-10-04 17:14:0013[facility] HermannCHEM NLXSO4081-71-66 17:14:002.1[facility] HermannCHEM UGKCH3662-19-26 17:14:004.1[facility] HermannCHEM OBCJZ7923-93-98 17:14:00 Test Item Value Reference Range Interpretation Comments A/G Ratio (test code = A/G Ratio) 0.3 1 0.7-1.6 [facility] HermannCHEM MTOLH2327-33-09 17:14:99599Ohbobrqm HermannCHEM PANEL 2019-10-04 17:14:09906Tpqabjhk HermannCHEM MJOST3601-10-42 17:14:0099[facility] HermannCHEM SVYCR4207-87-93 17:14:003.14[facility] HermannCHEM ZDUZM6535-80-81 17:14:54026Cjaiqwau HermannCHEM VERYR6424-00-75 17:14:003.9[facility] HermannCHEM LHKDR3793-80-03 17:14:0099[facility] HermannCHEM IWHOF4990-95-56 17:14:0026 [facility] HermannCHEM MMHOT3358-97-49 17:14:008.5[facility] HermannCHEM PANEL 2019-10-04 17:14:0012.9[facility] HermannCHEM RJRPU6662-45-76 17:14:0019[facility] AudkjthFXILPRTZIM8057-02-94 17:14:00 Test Item Value Reference Range Interpretation Comments PT (test code = PT) 19.0 s 12.0-14.7 [facility] HnfnjxnFRRKRQNUXX3516-18-31 17:14:00 Test Item Value Reference Range Interpretation Comments INR (test code = INR) 1.58 1 0.85-1.17 [facility]DB[facility]78[facility] 17:14:00 Test Item Value Reference Range Interpretation Comments PTT (test code = PTT) 37.2 s 22.9-35.8 [facility] LoblgcrEYFCCIBUNX7772-50-12 14:15:004.7[facility] HermannHEMATOLOGY 2019-09-10 14:15:002.41[facility] RxwhizsRARHKDFPSX9977-45-16 14:15:007.9[facility] XiuddamLWRZVNMUIF8285-86-29 14:15:0024.6[facility] BzbsvhgMSZJYNMHLB5089-29-18 14:15:23974.8[facility] FtgvoqrJMGKFVOHRT3478-02-36 14:15:00 Test Item Value Reference Range Interpretation Comments MCH (test code = MCH) 32.9 pg 27.0-31.0 [facility] CjvvhuiXMPZJDSNRR5983-01-35 14:15:0032.3[facility] HermannHEMATOLOGY 2019-09-10 14:15:0016.5[facility] VnyrcppXJKNFXXGCT3748-26-34 14:15:80653Gzxathei NjgpqqwZVWAPXDHDK7982-05-58 14:15:009.1[facility] CgmssbeOJDAGZRAVO8382-55-45 14:15:003.2[facility] VsbjdkcSYCMFOSULZ4949-49-28 14:15:000.9[facility] BRDPOKBYPL4689 14:15:000.4[facility] TemipwdSLIJCBAIQP6942-92-14 14:15:000.2 [facility] IyxuhdzTUOYEBQAJP7412-11-44 14:15:0068.0[facility] HermannHEMATOLOGY 2019-09-10 14:15:000.0[facility] IaxylpkNDPRHEPUGM1339-52-31 14:15:0019.0[facility] AffxcseRQBCCRNHEK2371-03-21 14:15:009.0[facility] RkwisjzMIIHJMCLCY9825-25-52 14:15:004.0[facility] UlmaineUGYQJJVNUG9741-02-56 14:15:000.0[facility] LPGIZAVLEE2232-50-79 14:15:00Normal (09/10/19 9:15 AM)[facility] HermannHEMATOLOGY 2019-09-10 14:15:00Normal (09/10/19 9:15 AM)[facility] UbraznmZHJVIQMWAO4648-91-33 14:15:004.1[facility] HermannPOCT-GLUCOSE KMRDS8329-22-43 07:31:00 Test Item Value Reference Range Interpretation Comments POC-GLUCOSE METER 146 mg/dL 70-[address] [facility] ([facility]) (test code = ABDULAZIZ [place] ERIKA DARBY 1538) [address] BSUMVNNUQ4817-62-38 06:02:00 Test Item Value Reference Range Interpretation Comments MAGNESIUM ([facility]) (test code = 1.6 mg/dL 1.6-2.6 627) BASIC METABOLIC [id number] 06:02:00 Test Item Value Reference Range Interpretation Comments SODIUM (BEAKER) 134 meq/L 136-145 L (test code = 381) POTASSIUM (BEAKER) 4.2 meq/L 3.5-5.1 (test code = 379) CHLORIDE (BEAKER) 105 meq/L 98-107 (test code = 382) CO2 (BEAKER) (test 19 meq/L 22-29 L code = 355) BLOOD UREA NITROGEN 29 mg/dL 7-21 H (BEAKER) (test code = 354) CREATININE (BEAKER) 1.74 mg/dL 0.57-1.25 H (test code = 358) GLUCOSE RANDOM 121 mg/dL 70-105 H (BEAKER) (test code = 652) CALCIUM (BEAKER) 8.6 mg/dL 8.4-10.2 (test code = 697) EGFR (BEAKER) (test 39 mL/min/1.73 ESTIMA WALDEMAR GFR IS code = 1092) sq m NOT ACCURATE CREATININE CLEARANCE IN PREDICTING GLOMERULAR FILTRATION RATE . ESTIMATED GFR I S NOT APPLICABLE FOR DIALYSIS PATIEN TS. CBC W/PLT COUNT & AUTO [id number] 05:15:00 Test Item Value Reference Range Interpretation Comments WHITE BLOOD CELL COUNT (BEAKER) 5.7 K/ L 3.5-10.5 (test code = 775) RED BLOOD CELL COUNT (BEAKER) 2.52 M/ L 4.63-6.08 L (test code = 761) HEMOGLOBIN (BEAKER) (test code = 8.0 GM/DL 13.7-17.5 L 410) HEMATOCRIT (BEAKER) (test code = 25.7 % 40.1-51.0 L 411) MEAN CORPUSCULAR VOLUME (BEAKER) 102.0 fL 79.0-92.2 H (test code = 753) MEAN CORPUSCULAR HEMOGLOBIN 31.7 pg 25.7-32.2 (BEAKER) (test code = 751) MEAN CORPUSCULAR HEMOGLOBIN CONC 31.1 GM/DL 32.3-36.5 L (BEAKER) (test code = 752) RED CELL DISTRIBUTION WIDTH 14.9 % 11.6-14.4 H (BEAKER) (test code = 412) PLATELET COUNT (BEAKER) (test 244 K/CU MM 150-450 code = 756) MEAN PLATELET VOLUME (BEAKER) 11.3 fL 9.4-12.4 (test code = 754) NUCLEATED RED BLOOD CELLS 1 /100 WBC 0-0 H (BEAKER) (test code = 413) NEUTROPHILS RELATIVE PERCENT 60 % (BEAKER) (test code = 429) LYMPHOCYTES RELATIVE PERCENT 23 % (BEAKER) (test code = 430) MONOCYTES RELATIVE PERCENT 12 % (BEAKER) (test code = 431) EOSINOPHILS RELATIVE PERCENT 3 % (BEAKER) (test code = 432) BASOPHILS RELATIVE PERCENT 1 % (BEAKER) (test code = 437) NEUTROPHILS ABSOLUTE COUNT 3.42 K/ L 1.78-5.38 (BEAKER) (test code = 670) LYMPHOCYTES ABSOLUTE COUNT 1.32 K/ L 1.32-3.57 (BEAKER) (test code = 414) MONOCYTES ABSOLUTE COUNT (BEAKER) 0.67 K/ L 0.30-0.82 (test code = 415) EOSINOPHILS ABSOLUTE COUNT 0.18 K/ L 0.04-0.54 (BEAKER) (test code = 416) BASOPHILS ABSOLUTE COUNT (BEAKER) 0.04 K/ L 0.01-0.08 (test code = 417) IMMATURE GRANULOCYTES-RELATIVE 1 % 0-1 PERCENT (BEAKER) (test code = 2801) POCT-GLUCOSE [id number] 21:22:00 Test Item Value Reference Range Interpretation Comments POC-GLUCOSE METER 210 mg/dL 70-110 H TESTED AT [place] [address] ([facility]) (test code = ABDULAZIZ [place] 1538) [address] POCT-GLUCOSE [id number] 12:29:00 Test Item Value Reference Range Interpretation Comments POC-GLUCOSE METER 160 mg/dL 70-110 H TESTED AT [place] [address] ([facility]) (test code = ABDULAZIZ [place] 1538) [address] [id number]-[id number] 10:56:00 Test Item Value Reference Range Interpretation Comments ACTIVATED CLOTTING TIME 389 sec TEST ED AT [place] [address] ([facility]) (test code = [place]BDULAZIZ [place] 441) [address] POCT-GLUCOSE [id number] 08:16:00 Test Item Value Reference Range Interpretation Comments POC-GLUCOSE METER 142 mg/dL 70-110 H TESTED AT [place] [address] (BEAKER) (test code = ABDULAZIZ [place] 1538) [address] [id number] 07:34:00 Test Item Value Reference Range Interpretation Comments MAGNESIUM (BEAKER) (test code = 1.7 mg/dL 1.6-2.6 627) BASIC METABOLIC [id number] 04:55:00 Test Item Value Reference Range Interpretation Comments SODIUM (BEAKER) 136 meq/L 136-145 (test code = 381) POTASSIUM (BEAKER) 4.4 meq/L 3.5-5.1 (test code = 379) CHLORIDE (BEAKER) 103 meq/L 98-107 (test code = 382) CO2 (BEAKER) (test 25 meq/L 22-29 code = 355) BLOOD UREA NITROGEN 29 mg/dL 7-21 H (BEAKER) (test code = 354) CREATININE (BEAKER) 1.70 mg/dL 0.57-1.25 H (test code = 358) GLUCOSE RANDOM 113 mg/dL 70-105 H (BEAKER) (test code = 652) CALCIUM (BEAKER) 9.4 mg/dL 8.4-10.2 (test code = 697) EGFR (BEAKER) (test 40 mL/min/1.73 ESTIMA WALDEMAR GFR IS code = 1092) sq m NOT ACCURATE CREATININE CLEARANCE IN PREDICTING GLOMERULAR FILTRATION RATE . ESTIMATED GFR I S NOT APPLICABLE FOR DIALYSIS PATIEN [id number] 04:25:00 Test Item Value Reference Range Interpretation Comments PARTIAL THROMBOPLASTIN TIME 83.5 seconds 22.5-36.0 H (BEAKER) (test code = 760) CBC W/PLT COUNT & AUTO [id number] 04:18:00 Test Item Value Reference Range Interpretation Comments WHITE BLOOD CELL COUNT (BEAKER) 5.4 K/ L 3.5-10.5 (test code = 775) RED BLOOD CELL COUNT (BEAKER) 2.81 M/ L 4.63-6.08 L (test code = 761) HEMOGLOBIN (BEAKER) (test code = 8.9 GM/DL 13.7-17.5 L 410) HEMATOCRIT (BEAKER) (test code = 28.8 % 40.1-51.0 L 411) MEAN CORPUSCULAR VOLUME (BEAKER) 102.5 fL 79.0-92.2 H (test code = 753) MEAN CORPUSCULAR HEMOGLOBIN 31.7 pg 25.7-32.2 (BEAKER) (test code = 751) MEAN CORPUSCULAR HEMOGLOBIN CONC 30.9 GM/DL 32.3-36.5 L (BEAKER) (test code = 752) RED CELL DISTRIBUTION WIDTH 14.5 % 11.6-14.4 H (BEAKER) (test code = 412) PLATELET COUNT (BEAKER) (test 238 K/CU MM 150-450 code = 756) MEAN PLATELET VOLUME (BEAKER) 11.1 fL 9.4-12.4 (test code = 754) NUCLEATED RED BLOOD CELLS 1 /100 WBC 0-0 H (BEAKER) (test code = 413) NEUTROPHILS RELATIVE PERCENT 50 % (BEAKER) (test code = 429) LYMPHOCYTES RELATIVE PERCENT 30 % (BEAKER) (test code = 430) MONOCYTES RELATIVE PERCENT 14 % (BEAKER) (test code = 431) EOSINOPHILS RELATIVE PERCENT 5 % (BEAKER) (test code = 432) BASOPHILS RELATIVE PERCENT 1 % (BEAKER) (test code = 437) NEUTROPHILS ABSOLUTE COUNT 2.67 K/ L 1.78-5.38 (BEAKER) (test code = 670) LYMPHOCYTES ABSOLUTE COUNT 1.64 K/ L 1.32-3.57 (BEAKER) (test code = 414) MONOCYTES ABSOLUTE COUNT (BEAKER) 0.74 K/ L 0.30-0.82 (test code = 415) EOSINOPHILS ABSOLUTE COUNT 0.26 K/ L 0.04-0.54 (BEAKER) (test code = 416) BASOPHILS ABSOLUTE COUNT (BEAKER) 0.05 K/ L 0.01-0.08 (test code = 417) IMMATURE GRANULOCYTES-RELATIVE 1 % 0-1 PERCENT (BEAKER) (test code = 2801) POCT-GLUCOSE [id number] 21:05:00 Test Item Value Reference Range Interpretation Comments POC-GLUCOSE METER 228 mg/dL 70-110 H TESTED AT [place] [address] ([facility]) (test code = [facility] 1538) [id number] POCT-GLUCOSE [id number] 17:52:00 Test Item Value Reference Range Interpretation Comments POC-GLUCOSE METER 154 mg/dL 70-[address] [facility] [address] ([facility]) (test code = [facility] 1538) [id number] POCT-GLUCOSE [id number] 12:41:00 Test Item Value Reference Range Interpretation Comments POC-GLUCOSE METER 160 mg/dL 70-[address] [facility] [address] (BEAKER) (test code = [facility] [place] 15[facility]) [id number] 09:43:00 Test Item Value Reference Range Interpretation Comments MAGNESIUM (BEAKER) (test code = 1.7 mg/dL 1.6-2.6 627) BASIC METABOLIC [id number] 09:43:00 Test Item Value Reference Range Interpretation Comments SODIUM (BEAKER) 135 meq/L 136-145 L (test code = 381) POTASSIUM (BEAKER) 3.8 meq/L 3.5-5.1 (test code = 379) CHLORIDE (BEAKER) 99 meq/L 98-107 (test code = 382) CO2 (BEAKER) (test 24 meq/L 22-29 code = 355) BLOOD UREA NITROGEN 27 mg/dL 7-21 H (BEAKER) (test code = 354) CREATININE (BEAKER) 1.63 mg/dL 0.57-1.25 H (test code = 358) GLUCOSE RANDOM 167 mg/dL 70-105 H (BEAKER) (test code = 652) CALCIUM (BEAKER) 9.6 mg/dL 8.4-10.2 (test code = 697) EGFR (BEAKER) (test 42 mL/min/1.73 ESTIMA WALDEMAR GFR IS code = 1092) sq m NOT ACCURATE CREATININE CLEARANCE IN PREDICTING GLOMERULAR FILTRATION RATE . ESTIMATED GFR I S NOT APPLICABLE FOR DIALYSIS PATIEN TS. [id number] 09:34:00 Test Item Value Reference Range Interpretation Comments PARTIAL THROMBOPLASTIN TIME 83.8 seconds 22.5-36.0 H (BEAKER) (test code = 760) CBC W/PLT COUNT & AUTO [id number] 09:22:00 Test Item Value Reference Range Interpretation Comments WHITE BLOOD CELL COUNT (BEAKER) 6.2 K/ L 3.5-10.5 (test code = 775) RED BLOOD CELL COUNT (BEAKER) 2.93 M/ L 4.63-6.08 L (test code = 761) HEMOGLOBIN (BEAKER) (test code = 9.5 GM/DL 13.7-17.5 L 410) HEMATOCRIT (BEAKER) (test code = 29.1 % 40.1-51.0 L 411) MEAN CORPUSCULAR VOLUME (BEAKER) 99.3 fL 79.0-92.2 H (test code = 753) MEAN CORPUSCULAR HEMOGLOBIN 32.4 pg 25.7-32.2 H (BEAKER) (test code = 751) MEAN CORPUSCULAR HEMOGLOBIN CONC 32.6 GM/DL 32.3-36.5 (BEAKER) (test code = 752) RED CELL DISTRIBUTION WIDTH 14.5 % 11.6-14.4 H (BEAKER) (test code = 412) PLATELET COUNT (BEAKER) (test 271 K/CU MM 150-450 code = 756) MEAN PLATELET VOLUME (BEAKER) 11.3 fL 9.4-12.4 (test code = 754) NUCLEATED RED BLOOD CELLS 0 /100 WBC 0-0 (BEAKER) (test code = 413) NEUTROPHILS RELATIVE PERCENT 59 % (BEAKER) (test code = 429) LYMPHOCYTES RELATIVE PERCENT 25 % (BEAKER) (test code = 430) MONOCYTES RELATIVE PERCENT 10 % (BEAKER) (test code = 431) EOSINOPHILS RELATIVE PERCENT 5 % (BEAKER) (test code = 432) BASOPHILS RELATIVE PERCENT 1 % (BEAKER) (test code = 437) NEUTROPHILS ABSOLUTE COUNT 3.65 K/ L 1.78-5.38 (BEAKER) (test code = 670) LYMPHOCYTES ABSOLUTE COUNT 1.51 K/ L 1.32-3.57 (BEAKER) (test code = 414) MONOCYTES ABSOLUTE COUNT (BEAKER) 0.60 K/ L 0.30-0.82 (test code = 415) EOSINOPHILS ABSOLUTE COUNT 0.31 K/ L 0.04-0.54 (BEAKER) (test code = 416) BASOPHILS ABSOLUTE COUNT (BEAKER) 0.04 K/ L 0.01-0.08 (test code = 417) IMMATURE GRANULOCYTES-RELATIVE 1 % 0-1 PERCENT (BEAKER) (test code = 2801) POCT-GLUCOSE [id number] 08:44:00 Test Item Value Reference Range Interpretation Comments POC-GLUCOSE METER 169 mg/dL 70-[address] [facility] (BEAKER) (test code = ABDULAZIZ DARBY 1538) [id number] POCT-GLUCOSE [id number] 21:30:00 Test Item Value Reference Range Interpretation Comments POC-GLUCOSE METER 167 mg/dL 70-[address] [facility] (BEAKER) (test code = ABDULAZIZ Cameron [facility] 1538) [address] POCT-GLUCOSE [id number] 18:39:00 Test Item Value Reference Range Interpretation Comments POC-GLUCOSE METER 138 mg/dL 70-110 H TESTED AT [place] [address] (BEAKER) (test code = ABDULAZIZ Cameron [facility] 1538) [address] POCT-GLUCOSE [id number] 12:06:00 Test Item Value Reference Range Interpretation Comments POC-GLUCOSE METER 161 mg/dL 70-110 H TESTED AT [place] [address] ([facility]) (test code = ABDULAZIZ Cameron [facility] 1538) [address] POCT-GLUCOSE [id number] 08:30:00 Test Item Value Reference Range Interpretation Comments POC-GLUCOSE METER 131 mg/dL 70-110 H TESTED AT [place] [address] (BEAKER) (test code = ABDULAZIZ Cameron [facility] 1538) [address] [id number] 06:13:00 Test Item Value Reference Range Interpretation Comments MAGNESIUM (BEAKER) (test code = 1.5 mg/dL 1.6-2.6 L 627) BASIC METABOLIC [id number] 06:13:00 Test Item Value Reference Range Interpretation Comments SODIUM (BEAKER) 137 meq/L 136-145 (test code = 381) POTASSIUM (BEAKER) 4.0 meq/L 3.5-5.1 (test code = 379) CHLORIDE (BEAKER) 103 meq/L 98-107 (test code = 382) CO2 (BEAKER) (test 25 meq/L 22-29 code = 355) BLOOD UREA NITROGEN 28 mg/dL 7-21 H (BEAKER) (test code = 354) CREATININE (BEAKER) 1.70 mg/dL 0.57-1.25 H (test code = 358) GLUCOSE RANDOM 115 mg/dL 70-105 H (BEAKER) (test code = 652) CALCIUM (BEAKER) 9.2 mg/dL 8.4-10.2 (test code = 697) EGFR (BEAKER) (test 40 mL/min/1.73 ESTIMA WALDEMAR GFR IS code = 1092) sq m NOT ACCURATE CREATININE CLEARANCE IN PREDICTING GLOMERULAR FILTRATION RATE . ESTIMATED GFR I S NOT APPLICABLE FOR DIALYSIS PATIEN [id number] 05:39:00 Test Item Value Reference Range Interpretation Comments PARTIAL THROMBOPLASTIN TIME 85.9 seconds 22.5-36.0 H (BEAKER) (test code = 760) CBC W/PLT COUNT & AUTO [id number] 05:35:00 Test Item Value Reference Range Interpretation Comments WHITE BLOOD CELL COUNT (BEAKER) 5.3 K/ L 3.5-10.5 (test code = 775) RED BLOOD CELL COUNT (BEAKER) 2.63 M/ L 4.63-6.08 L (test code = 761) HEMOGLOBIN (BEAKER) (test code = 8.3 GM/DL 13.7-17.5 L 410) HEMATOCRIT (BEAKER) (test code = 26.4 % 40.1-51.0 L 411) MEAN CORPUSCULAR VOLUME (BEAKER) 100.4 fL 79.0-92.2 H (test code = 753) MEAN CORPUSCULAR HEMOGLOBIN 31.6 pg 25.7-32.2 (BEAKER) (test code = 751) MEAN CORPUSCULAR HEMOGLOBIN CONC 31.4 GM/DL 32.3-36.5 L (BEAKER) (test code = 752) RED CELL DISTRIBUTION WIDTH 14.4 % 11.6-14.4 (BEAKER) (test code = 412) PLATELET COUNT (BEAKER) (test 211 K/CU MM 150-450 code = 756) MEAN PLATELET VOLUME (BEAKER) 11.4 fL 9.4-12.4 (test code = 754) NUCLEATED RED BLOOD CELLS 0 /100 WBC 0-0 (BEAKER) (test code = 413) NEUTROPHILS RELATIVE PERCENT 52 % (BEAKER) (test code = 429) LYMPHOCYTES RELATIVE PERCENT 30 % (BEAKER) (test code = 430) MONOCYTES RELATIVE PERCENT 12 % (BEAKER) (test code = 431) EOSINOPHILS RELATIVE PERCENT 5 % (BEAKER) (test code = 432) BASOPHILS RELATIVE PERCENT 1 % (BEAKER) (test code = 437) NEUTROPHILS ABSOLUTE COUNT 2.75 K/ L 1.78-5.38 (BEAKER) (test code = 670) LYMPHOCYTES ABSOLUTE COUNT 1.61 K/ L 1.32-3.57 (BEAKER) (test code = 414) MONOCYTES ABSOLUTE COUNT (BEAKER) 0.62 K/ L 0.30-0.82 (test code = 415) EOSINOPHILS ABSOLUTE COUNT 0.28 K/ L 0.04-0.54 (BEAKER) (test code = 416) BASOPHILS ABSOLUTE COUNT (BEAKER) 0.04 K/ L 0.01-0.08 (test code = 417) IMMATURE GRANULOCYTES-RELATIVE 1 % 0-1 PERCENT (BEAKER) (test code = 2801) POCT-GLUCOSE [id number] 21:27:00 Test Item Value Reference Range Interpretation Comments POC-GLUCOSE METER 174 mg/dL 70-110 H TESTED AT [place] [address] ([facility]) (test code = SALLYCAM Rakesh [facility] 1538) [address] [id number] 18:40:00 Test Item Value Reference Range Interpretation Comments PARTIAL THROMBOPLASTIN TIME 89.7 seconds 22.5-36.0 H (BEAKER) (test code = 760) POCT-GLUCOSE [id number] 18:28:00 Test Item Value Reference Range Interpretation Comments POC-GLUCOSE METER 148 mg/dL 70-110 H TESTED AT [place] [address] ([facility]) (test code = SALLYCAM Rakesh [place] 1538) [id number] 12:47:00 Test Item Value Reference Range Interpretation Comments PARTIAL THROMBOPLASTIN TIME 73.2 seconds 22.5-36.0 H (BEAKER) (test code = 760) POCT-GLUCOSE [id number] 11:43:00 Test Item Value Reference Range Interpretation Comments POC-GLUCOSE METER 152 mg/dL 70-110 H TESTED AT [place] [address] (BEAKER) (test code = SALLYCAM Rakesh [place] 1538) [address] POCT-GLUCOSE [id number] 08:05:00 Test Item Value Reference Range Interpretation Comments POC-GLUCOSE METER 145 mg/dL 70-110 H TESTED AT [place] [address] ([facility]) (test code = ABDULAZIZ Cameron [place] 1538) [address] BASIC METABOLIC [id number] 06:13:00 Test Item Value Reference Range Interpretation Comments SODIUM (BEAKER) 137 meq/L 136-145 (test code = 381) POTASSIUM (BEAKER) 3.4 meq/L 3.5-5.1 L (test code = 379) CHLORIDE (BEAKER) 101 meq/L 98-107 (test code = 382) CO2 (BEAKER) (test 27 meq/L 22-29 code = 355) BLOOD UREA NITROGEN 29 mg/dL 7-21 H (BEAKER) (test code = 354) CREATININE (BEAKER) 1.52 mg/dL 0.57-1.25 H (test code = 358) GLUCOSE RANDOM 120 mg/dL 70-105 H (BEAKER) (test code = 652) CALCIUM (BEAKER) 9.1 mg/dL 8.4-10.2 (test code = 697) EGFR (BEAKER) (test 45 mL/min/1.73 ESTIMA WALDEMAR GFR IS code = 1092) sq m NOT ACCURATE CREATININE CLEARANCE IN PREDICTING GLOMERULAR FILTRATION RATE . ESTIMATED GFR I S NOT APPLICABLE FOR DIALYSIS PATIREGINA OLIVARES [id number] 05:29:00 Test Item Value Reference Range Interpretation Comments PARTIAL THROMBOPLASTIN TIME 60.6 seconds 22.5-36.0 H (BEAKER) (test code = 760) CBC W/PLT COUNT & AUTO [id number] 05:22:00 Test Item Value Reference Range Interpretation Comments WHITE BLOOD CELL COUNT (BEAKER) 4.8 K/ L 3.5-10.5 (test code = 775) RED BLOOD CELL COUNT (BEAKER) 2.54 M/ L 4.63-6.08 L (test code = 761) HEMOGLOBIN (BEAKER) (test code = 8.1 GM/DL 13.7-17.5 L 410) HEMATOCRIT (BEAKER) (test code = 25.1 % 40.1-51.0 L 411) MEAN CORPUSCULAR VOLUME (BEAKER) 98.8 fL 79.0-92.2 H (test code = 753) MEAN CORPUSCULAR HEMOGLOBIN 31.9 pg 25.7-32.2 (BEAKER) (test code = 751) MEAN CORPUSCULAR HEMOGLOBIN CONC 32.3 GM/DL 32.3-36.5 (BEAKER) (test code = 752) RED CELL DISTRIBUTION WIDTH 14.5 % 11.6-14.4 H (BEAKER) (test code = 412) PLATELET COUNT (BEAKER) (test 213 K/CU MM 150-450 code = 756) MEAN PLATELET VOLUME (BEAKER) 11.4 fL 9.4-12.4 (test code = 754) NUCLEATED RED BLOOD CELLS 1 /100 WBC 0-0 H (BEAKER) (test code = 413) NEUTROPHILS RELATIVE PERCENT 54 % (BEAKER) (test code = 429) LYMPHOCYTES RELATIVE PERCENT 30 % (BEAKER) (test code = 430) MONOCYTES RELATIVE PERCENT 12 % (BEAKER) (test code = 431) EOSINOPHILS RELATIVE PERCENT 4 % (BEAKER) (test code = 432) BASOPHILS RELATIVE PERCENT 1 % (BEAKER) (test code = 437) NEUTROPHILS ABSOLUTE COUNT 2.56 K/ L 1.78-5.38 (BEAKER) (test code = 670) LYMPHOCYTES ABSOLUTE COUNT 1.42 K/ L 1.32-3.57 (BEAKER) (test code = 414) MONOCYTES ABSOLUTE COUNT (BEAKER) 0.55 K/ L 0.30-0.82 (test code = 415) EOSINOPHILS ABSOLUTE COUNT 0.18 K/ L 0.04-0.54 (BEAKER) (test code = 416) BASOPHILS ABSOLUTE COUNT (BEAKER) 0.05 K/ L 0.01-0.08 (test code = 417) IMMATURE GRANULOCYTES-RELATIVE 0 % 0-1 PERCENT (BEAKER) (test code = 2801) POCT-GLUCOSE [id number] 22:50:00 Test Item Value Reference Range Interpretation Comments POC-GLUCOSE METER 175 mg/dL 70-[address] [facility] (BEAKER) (test code = ABDULAZIZ Cameron [place] 1538) [address] POCT-GLUCOSE [id number] 18:20:00 Test Item Value Reference Range Interpretation Comments POC-GLUCOSE METER 157 mg/dL 70-[address] [facility] (BEAKER) (test code = ABDULAZIZ Cameron [place] 1538) [address] PLATELET AGGREGATION: FUNCTION [id number] 15:05:00 Test Item Value Reference Range Interpretation Comments [id number] Staci Waite, (BEAKER) (test code = (electronic 8200) signature) PLATELET COUNT AGG 284 K/CU MM 150-450 (BEAKER) (test code = 9446) PLATELET RICH 244 k/cu mm 200-300 PLASMA(BEAKER) (test code = 2139) PLATELET FUNCTION SCREEN Decreased aggregation INTERPRETATION (BEAKER) with ADP which (test code = 4655) indicates platelet dysfunction that may be due to medication effect, uremia, or other platelet function disorders. Clinical correlation is required. Platelet Function Screen results may be falsely low with platelet counts<75,000/cu mm.POCT-GLUCOSE [id number] 12:10:00 Test Item Value Reference Range Interpretation Comments POC-GLUCOSE METER 171 mg/dL 70-[address] [facility] (BEAKER) (test code = ABDULAZIZ [place] 1538) [address] CBC W/PLT COUNT & AUTO [id number] 11:17:00 Test Item Value Reference Range Interpretation Comments WHITE BLOOD CELL COUNT (BEAKER) 8.5 K/ L 3.5-10.5 (test code = 775) RED BLOOD CELL COUNT (BEAKER) 3.07 M/ L 4.63-6.08 L (test code = 761) HEMOGLOBIN (BEAKER) (test code = 9.8 GM/DL 13.7-17.5 L 410) HEMATOCRIT (BEAKER) (test code = 30.9 % 40.1-51.0 L 411) MEAN CORPUSCULAR VOLUME (BEAKER) 100.7 fL 79.0-92.2 H (test code = 753) MEAN CORPUSCULAR HEMOGLOBIN 31.9 pg 25.7-32.2 (BEAKER) (test code = 751) MEAN CORPUSCULAR HEMOGLOBIN CONC 31.7 GM/DL 32.3-36.5 L (BEAKER) (test code = 752) RED CELL DISTRIBUTION WIDTH 14.5 % 11.6-14.4 H (BEAKER) (test code = 412) PLATELET COUNT (BEAKER) (test 280 K/CU MM 150-450 code = 756) MEAN PLATELET VOLUME (BEAKER) 11.7 fL 9.4-12.4 (test code = 754) NUCLEATED RED BLOOD CELLS 1 /100 WBC 0-0 H (BEAKER) (test code = 413) (CELLAVISION MANUAL DIFF)[id number] 11:17:00 Test Item Value Reference Range Interpretation Comments NEUTROPHILS - REL 69 % (CELLAVISION)(BEAKER) (test code = 2816) LYMPHOCYTES - REL 20 % (CELLAVISION)(BEAKER) (test code = 2817) MONOCYTES - REL 7 % (CELLAVISION)(BEAKER) (test code = 2818) EOSINOPHILS - REL 3 % (CELLAVISION)(BEAKER) (test code = 2819) BANDS - REL (CELLAVISION)(BEAKER) 1 % 0-10 (test code = 2826) NEUTROPHILS - ABS 5.87 K/ul 1.78-5.38 H (CELLAVISION)(BEAKER) (test code = 2830) LYMPHOCYTES - ABS 1.70 K/ul 1.32-3.57 (CELLAVISION)(BEAKER) (test code = 2831) MONOCYTES - ABS 0.60 K/uL 0.30-0.82 (CELLAVISION)(BEAKER) (test code = 2832) EOSINOPHILS - ABS 0.26 K/uL 0.04-0.54 (CELLAVISION)(BEAKER) (test code = 2834) BANDS - ABS (CELLAVISION)(BEAKER) 0.09 K/uL 0.00-0.80 (test code = 2840) TOTAL COUNTED (BEAKER) (test code 100 = 1351) MANUAL NRBC PER 100 CELLS (BEAKER) 2 /100 WBC 0-0 H (test code = 1353) RBC MORPHOLOGY (BEAKER) (test code Normal = 762) WBC MORPHOLOGY (BEAKER) (test code Normal = 487) PLT MORPHOLOGY (BEAKER) (test code Normal = 486) ARTIFACT (CELLAVISION)(BEAKER) Present (test code = 3432) PLATELET CONCENTRATION Adequate (CELLAVISION)(BEAKER) (test code = 3438) Received comment: User comments: Slide comments:BASIC METABOLIC [id number] 08:14:00 Test Item Value Reference Range Interpretation Comments SODIUM (BEAKER) 135 meq/L 136-145 L (test code = 381) POTASSIUM (BEAKER) 3.5 meq/L 3.5-5.1 (test code = 379) CHLORIDE (BEAKER) 99 meq/L 98-107 (test code = 382) CO2 (BEAKER) (test 24 meq/L 22-29 code = 355) BLOOD UREA NITROGEN 29 mg/dL 7-21 H (BEAKER) (test code = 354) CREATININE (BEAKER) 1.41 mg/dL 0.57-1.25 H (test code = 358) GLUCOSE RANDOM 115 mg/dL 70-105 H ([facility]) (test code = 652) CALCIUM (BEAKER) 9.5 mg/dL 8.4-10.2 (test code = 697) EGFR ([facility]) (test 50 mL/min/1.73 ESTIMA WALDEMAR GFR IS code = 1092) sq m NOT ACCURATE CREATININE CLEARANCE IN PREDICTING GLOMERULAR FILTRATION RATE . ESTIMATED GFR I S NOT APPLICABLE FOR DIALYSIS PATIEN TS. POCT-GLUCOSE [id number] 07:53:00 Test Item Value Reference Range Interpretation Comments POC-GLUCOSE METER 124 mg/dL 70-110 H TESTED AT [place] [address] ([facility]) (test code = ABDULAZIZ Cameron [facility] 1538) [id number] 07:17:00 Test Item Value Reference Range Interpretation Comments PARTIAL THROMBOPLASTIN TIME 73.8 seconds 22.5-36.0 H ([facility]) (test code = 760) [id number] 00:43:00 Test Item Value Reference Range Interpretation Comments PARTIAL THROMBOPLASTIN TIME 71.1 seconds 22.5-36.0 H ([facility]) (test code = 760) POCT-GLUCOSE [id number] 21:48:00 Test Item Value Reference Range Interpretation Comments POC-GLUCOSE METER 215 mg/dL 70-110 H TESTED AT [place] [address] ([facility]) (test code = [facility] Rakesh [facility] 1538) [address] [id number] 19:01:00 Test Item Value Reference Range Interpretation Comments PARTIAL THROMBOPLASTIN TIME 79.1 seconds 22.5-36.0 H ([facility]) (test code = 760) POCT-GLUCOSE [id number] 18:01:00 Test Item Value Reference Range Interpretation Comments POC-GLUCOSE METER 130 mg/dL 70-110 H TESTED AT [place] [address] ([facility]) [facility] 1538) [address] POCT-GLUCOSE [id number] 13:32:00 Test Item Value Reference Range Interpretation Comments POC-GLUCOSE METER 136 mg/dL 70-110 H TESTED AT [place] [address] ([facility]) (test code = [facility] Rakesh [facility] 1538) [address] [id number] 11:42:00 Test Item Value Reference Range Interpretation Comments PARTIAL THROMBOPLASTIN TIME 50.9 seconds 22.5-36.0 H (BEAKER) (test code = 760) POCT-GLUCOSE [id number] 08:47:00 Test Item Value Reference Range Interpretation Comments POC-GLUCOSE METER 169 mg/dL 70-[address] [facility] (BEAKER) (test code = ABDULAZIZ [place] 1538) [address] TSH/FREE T4 IF [id number] 04:54:00 Test Item Value Reference Range Interpretation Comments THYROID STIMULATING HORMONE 2.33 uIU/mL 0.35-4.94 (BEAKER) (test code = 772) BASIC METABOLIC [id number] 04:22:00 Test Item Value Reference Range Interpretation Comments SODIUM (BEAKER) 137 meq/L 136-145 (test code = 381) POTASSIUM (BEAKER) 3.7 meq/L 3.5-5.1 (test code = 379) CHLORIDE (BEAKER) 103 meq/L 98-107 (test code = 382) CO2 (BEAKER) (test 27 meq/L 22-29 code = 355) BLOOD UREA NITROGEN 37 mg/dL 7-21 H (BEAKER) (test code = 354) CREATININE (BEAKER) 1.45 mg/dL 0.57-1.25 H (test code = 358) GLUCOSE RANDOM 107 mg/dL 70-105 H (BEAKER) (test code = 652) CALCIUM (BEAKER) 9.1 mg/dL 8.4-10.2 (test code = 697) EGFR (BEAKER) (test 48 mL/min/1.73 ESTIMA WALDEMAR GFR IS code = 1092) sq m NOT ACCURATE CREATININE CLEARANCE IN PREDICTING GLOMERULAR FILTRATION RATE . ESTIMATED GFR I S NOT APPLICABLE FOR DIALYSIS PATIEN TS. [id number] 04:17:00 Test Item Value Reference Range Interpretation Comments PARTIAL THROMBOPLASTIN TIME 55.1 seconds 22.5-36.0 H (BEAKER) (test code = 760) CBC W/PLT COUNT & AUTO [id number] 04:08:00 Test Item Value Reference Range Interpretation Comments WHITE BLOOD CELL COUNT (BEAKER) 5.4 K/ L 3.5-10.5 (test code = 775) RED BLOOD CELL COUNT (BEAKER) 2.72 M/ L 4.63-6.08 L (test code = 761) HEMOGLOBIN (BEAKER) (test code = 8.6 GM/DL 13.7-17.5 L 410) HEMATOCRIT (BEAKER) (test code = 27.3 % 40.1-51.0 L 411) MEAN CORPUSCULAR VOLUME (BEAKER) 100.4 fL 79.0-92.2 H (test code = 753) MEAN CORPUSCULAR HEMOGLOBIN 31.6 pg 25.7-32.2 (BEAKER) (test code = 751) MEAN CORPUSCULAR HEMOGLOBIN CONC 31.5 GM/DL 32.3-36.5 L (BEAKER) (test code = 752) RED CELL DISTRIBUTION WIDTH 14.4 % 11.6-14.4 (BEAKER) (test code = 412) PLATELET COUNT (BEAKER) (test 212 K/CU MM 150-450 code = 756) MEAN PLATELET VOLUME (BEAKER) 11.1 fL 9.4-12.4 (test code = 754) NUCLEATED RED BLOOD CELLS 0 /100 WBC 0-0 (BEAKER) (test code = 413) NEUTROPHILS RELATIVE PERCENT 52 % (BEAKER) (test code = 429) LYMPHOCYTES RELATIVE PERCENT 33 % (BEAKER) (test code = 430) MONOCYTES RELATIVE PERCENT 11 % (BEAKER) (test code = 431) EOSINOPHILS RELATIVE PERCENT 4 % (BEAKER) (test code = 432) BASOPHILS RELATIVE PERCENT 1 % (BEAKER) (test code = 437) NEUTROPHILS ABSOLUTE COUNT 2.79 K/ L 1.78-5.38 (BEAKER) (test code = 670) LYMPHOCYTES ABSOLUTE COUNT 1.74 K/ L 1.32-3.57 (BEAKER) (test code = 414) MONOCYTES ABSOLUTE COUNT (BEAKER) 0.57 K/ L 0.30-0.82 (test code = 415) EOSINOPHILS ABSOLUTE COUNT 0.20 K/ L 0.04-0.54 (BEAKER) (test code = 416) BASOPHILS ABSOLUTE COUNT (BEAKER) 0.04 K/ L 0.01-0.08 (test code = 417) IMMATURE GRANULOCYTES-RELATIVE 0 % 0-1 PERCENT (BEAKER) (test code = 2801) HEMOGLOBIN [id number] 22:25:00 Test Item Value Reference Range Interpretation Comments HEMOGLOBIN A1C ([facility]) (test code = 5.9 % 4.3-6.1 368) [id number] 21:15:00 Test Item Value Reference Range Interpretation Comments PARTIAL THROMBOPLASTIN TIME 21.0 seconds 22.5-36.0 L ([facility]) (test code = 760) Prior to initiating heparinPOCT-GLUCOSE [id number] 18:09:00 Test Item Value Reference Range Interpretation Comments POC-GLUCOSE METER 147 mg/dL 70-110 H TESTED AT [place] [address] ([facility]) (test code = [facility] 1538) [id number] RAD, CHEST, 2 [id number] 17:00:00Reason for Exam:->CARDIOMYPATHYFINAL REPORT Chest, two views. Clinical history: Cardiomyopathy. COMPARISON STUDY: July 21, 2017. FINDINGS: The cardiac silhouette is enlarged. The patient is status post sternotomy and pacer insertion. There are mild interstitial markings but no definite focal opacity, pleural effusion or pneumothorax. Postsurgical changes are seen in the spine. IMPRESSION: Cardiomegaly. Signed: Lakisha Robledo Verified Date/Time: 08/22/2017 17:00:07 Reading Location: [address] Radiology Reading Room POCT- GLUCOSE [id number] 12:06:00 Test Item Value Reference Range Interpretation Comments POC-GLUCOSE METER 153 mg/dL 70-[address] [facility] ([facility]) (test code = [facility] 1538) [id number] POCT-GLUCOSE [id number] 09:45:00 Test Item Value Reference Range Interpretation Comments POC-GLUCOSE METER 117 mg/dL 70-[address] [facility] ([facility]) (test code = [facility] 1538) [address] BASIC METABOLIC [id number] 08:01:00 Test Item Value Reference Range Interpretation Comments SODIUM ([facility]) 135 meq/L 136-145 L (test code = 381) POTASSIUM ([facility]) 4.1 meq/L 3.5-5.1 (test code = 379) CHLORIDE (BEAKER) 100 meq/L 98-107 (test code = 382) CO2 (BEAKER) (test 25 meq/L 22-29 code = 355) BLOOD UREA NITROGEN 34 mg/dL 7-21 H (BEAKER) (test code = 354) CREATININE (BEAKER) 1.46 mg/dL 0.57-1.25 H (test code = 358) GLUCOSE RANDOM 101 mg/dL 70-105 (BEAKER) (test code = 652) CALCIUM (BEAKER) 9.8 mg/dL 8.4-10.2 (test code = 697) EGFR (BEAKER) (test 48 mL/min/1.73 ESTIMA WALDEMAR GFR IS code = 1092) sq m NOT ACCURATE CREATININE CLEARANCE IN PREDICTING GLOMERULAR FILTRATION RATE . ESTIMATED GFR I S NOT APPLICABLE FOR DIALYSIS PATIEN TS. CBC (HEMOGRAM ONLY)[id number] 07:34:00 Test Item Value Reference Range Interpretation Comments WHITE BLOOD CELL COUNT (BEAKER) 4.7 K/ L 3.5-10.5 (test code = 775) RED BLOOD CELL COUNT (BEAKER) 3.32 M/ L 4.63-6.08 L (test code = 761) HEMOGLOBIN (BEAKER) (test code = 10.4 GM/DL 13.7-17.5 L 410) HEMATOCRIT (BEAKER) (test code = 33.8 % 40.1-51.0 L 411) MEAN CORPUSCULAR VOLUME (BEAKER) 101.8 fL 79.0-92.2 H (test code = 753) MEAN CORPUSCULAR HEMOGLOBIN 31.3 pg 25.7-32.2 (BEAKER) (test code = 751) MEAN CORPUSCULAR HEMOGLOBIN CONC 30.8 GM/DL 32.3-36.5 L (BEAKER) (test code = 752) RED CELL DISTRIBUTION WIDTH 14.8 % 11.6-14.4 H (BEAKER) (test code = 412) PLATELET COUNT (BEAKER) (test 269 K/CU MM 150-450 code = 756) MEAN PLATELET VOLUME (BEAKER) 10.7 fL 9.4-12.4 (test code = 754) NUCLEATED RED BLOOD CELLS 0 /100 WBC 0-0 (BEAKER) (test code = 413) POCT-GLUCOSE [id number] 21:49:00 Test Item Value Reference Range Interpretation Comments POC-GLUCOSE METER 99 mg/dL 70-[address] [facility] ([facility]) (test code = ABDULAZIZ Cameron [facility] [address] 1538) POCT-GLUCOSE [id number] 18:10:00 Test Item Value Reference Range Interpretation Comments POC-GLUCOSE METER 99 mg/dL 70-[address] [facility] ([facility]) (test code = ABDULAZIZ Cameron [facility] [address] 1538) RAD, CHEST, 1 VIEW, NON [id number] 18:07:00Reason for exam:->s/p laser lead extraction and BiV ICD upgradeShould this be performed at the bed side?->YesFINAL REPORT AP view of the chest dated 07/21/2017 COMPARISON: March 05, 2015 CLINICAL INFORMATION: s/p laser lead extraction and BiV ICD upgrade Comment: Heart is enlarged. There is prior sternotomy. AICD remains in place. Pulmonary vasculature is unremarkable. Lungs are clear. No pulmonary infiltrate or pleural effusion is present. Impression: Stable interval examination of the chest. Signed: Ashkan Garevy Verified Date/Time: 07/21/2017 18:07:38 Reading Location: [address] Consult Reading Room -GLUCOSE [id number] 12:15:00 Test Item Value Reference Range Interpretation Comments POC-GLUCOSE METER 103 mg/dL 70-[address] [facility] ([facility]) (test code = ABDULAZIZ Cameron [facility] 1538) [id number] 10:45:00 Test Item Value Reference Range Interpretation Comments MAGNESIUM (BEAKER) (test code = 1.8 mg/dL 1.6-2.6 627) BASIC METABOLIC [id number] 10:45:00 Test Item Value Reference Range Interpretation Comments SODIUM (BEAKER) 136 meq/L 136-145 (test code = 381) POTASSIUM (BEAKER) 4.2 meq/L 3.5-5.1 (test code = 379) CHLORIDE (BEAKER) 99 meq/L 98-107 (test code = 382) CO2 (BEAKER) (test 28 meq/L 22-29 code = 355) BLOOD UREA NITROGEN 44 mg/dL 7-21 H (BEAKER) (test code = 354) CREATININE (BEAKER) 1.76 mg/dL 0.57-1.25 H (test code = 358) GLUCOSE RANDOM 100 mg/dL 70-105 (BEAKER) (test code = 652) CALCIUM (BEAKER) 9.8 mg/dL 8.4-10.2 (test code = 697) EGFR (BEAKER) (test 38 mL/min/1.73 ESTIMA WALDEMAR GFR IS code = 1092) sq m NOT ACCURATE CREATININE CLEARANCE IN PREDICTING GLOMERULAR FILTRATION RATE . ESTIMATED GFR I S NOT APPLICABLE FOR DIALYSIS PATIEN TS. POCT-GLUCOSE [id number] 07:59:00 Test Item Value Reference Range Interpretation Comments POC-GLUCOSE METER 110 mg/dL 70-[address] [facility] (BEAKER) (test code = ABDULAZIZ [place] 1538) [id number] 03:28:00 Test Item Value Reference Range Interpretation Comments MAGNESIUM (BEAKER) (test code = 1.8 mg/dL 1.6-2.6 627) BASIC METABOLIC [id number] 22:59:00 Test Item Value Reference Range Interpretation Comments SODIUM (BEAKER) 137 meq/L 136-145 (test code = 381) POTASSIUM (BEAKER) 3.9 meq/L 3.5-5.1 (test code = 379) CHLORIDE (BEAKER) 98 meq/L 98-107 (test code = 382) CO2 (BEAKER) (test 28 meq/L 22-29 code = 355) BLOOD UREA NITROGEN 48 mg/dL 7-21 H (BEAKER) (test code = 354) CREATININE (BEAKER) 2.06 mg/dL 0.57-1.25 H (test code = 358) GLUCOSE RANDOM 159 mg/dL 70-105 H (BEAKER) (test code = 652) CALCIUM (BEAKER) 10.0 mg/dL 8.4-10.2 (test code = 697) EGFR (BEAKER) (test 32 mL/min/1.73 ESTIMA WALDEMAR GFR IS code = 1092) sq m NOT ACCURATE CREATININE CLEARANCE IN PREDICTING GLOMERULAR FILTRATION RATE . ESTIMATED GFR I S NOT APPLICABLE FOR DIALYSIS PATIEN TS. POCT-GLUCOSE [id number] 22:54:00 Test Item Value Reference Range Interpretation Comments POC-GLUCOSE METER 165 mg/dL 70-[address] [facility] (BEAKER) (test code = ABDULAZIZ DARBY 1538) 13464 PROTHROMBIN TIME/[id number] 10:35:00 Test Item Value Reference Range Interpretation Comments PROTIME (BEAKER) (test code = 15.4 seconds 11.7-14.7 H 759) INR (BEAKER) (test code = 370) 1.2 <=5.9 RECOMMENDED COUMADIN/WARFARIN INR THERAPY RANGESSTANDARD DOSE: 2.0 - 3.0 Includes: PROPHYLAXIS forvenous thrombosis, systemic embolization; TREATMENT for venous thrombosis and/or pulmonary embolus.HIGH RISK: Target INR is 2.5-3.5 for patients with mechanical heart valves.BASIC METABOLIC [id number] 10:35:00 Test Item Value Reference Range Interpretation Comments SODIUM (BEAKER) 140 meq/L 136-145 (test code = 381) POTASSIUM (BEAKER) 4.4 meq/L 3.5-5.1 Specimen slightly (test code = 379) hemolyzed CHLORIDE (BEAKER) 102 meq/L 98-107 (test code = 382) CO2 (BEAKER) (test 27 meq/L 22-29 code = 355) BLOOD UREA NITROGEN 48 mg/dL 7-21 H (BEAKER) (test code = 354) CREATININE (BEAKER) 2.08 mg/dL 0.57-1.25 H Specimen slightly (test code = 358) hemolyzed GLUCOSE RANDOM 93 mg/dL 70-105 (BEAKER) (test code = 652) CALCIUM (BEAKER) 9.9 mg/dL 8.4-10.2 (test code = 697) EGFR (BEAKER) (test 32 mL/min/1.73 ESTIMA WALDEMAR GFR IS code = 1092) sq m NOT ACCURATE CREATININE CLEARANCE IN PREDICTING GLOMERULAR FILTRATION RATE . ESTIMATED GFR I S NOT APPLICABLE FOR DIALYSIS PATIEN TS. CBC W/PLT COUNT & AUTO [id number] 10:25:00 Test Item Value Reference Range Interpretation Comments WHITE BLOOD CELL COUNT (BEAKER) 3.4 K/ L 3.5-10.5 L (test code = 775) RED BLOOD CELL COUNT (BEAKER) 3.17 M/ L 4.63-6.08 L (test code = 761) HEMOGLOBIN (BEAKER) (test code = 10.0 GM/DL 13.7-17.5 L 410) HEMATOCRIT (BEAKER) (test code = 32.0 % 40.1-51.0 L 411) MEAN CORPUSCULAR VOLUME (BEAKER) 100.9 fL 79.0-92.2 H (test code = 753) MEAN CORPUSCULAR HEMOGLOBIN 31.5 pg 25.7-32.2 (BEAKER) (test code = 751) MEAN CORPUSCULAR HEMOGLOBIN CONC 31.3 GM/DL 32.3-36.5 L (BEAKER) (test code = 752) RED CELL DISTRIBUTION WIDTH 15.3 % 11.6-14.4 H (BEAKER) (test code = 412) PLATELET COUNT (BEAKER) (test 289 K/CU MM 150-450 code = 756) MEAN PLATELET VOLUME (BEAKER) 10.8 fL 9.4-12.4 (test code = 754) NUCLEATED RED BLOOD CELLS 0 /100 WBC 0-0 (BEAKER) (test code = 413) NEUTROPHILS RELATIVE PERCENT 49 % (BEAKER) (test code = 429) LYMPHOCYTES RELATIVE PERCENT 32 % (BEAKER) (test code = 430) MONOCYTES RELATIVE PERCENT 13 % (BEAKER) (test code = 431) EOSINOPHILS RELATIVE PERCENT 5 % (BEAKER) (test code = 432) BASOPHILS RELATIVE PERCENT 1 % (BEAKER) (test code = 437) NEUTROPHILS ABSOLUTE COUNT 1.64 K/ L 1.78-5.38 L (BEAKER) (test code = 670) LYMPHOCYTES ABSOLUTE COUNT 1.07 K/ L 1.32-3.57 L (BEAKER) (test code = 414) MONOCYTES ABSOLUTE COUNT (BEAKER) 0.45 K/ L 0.30-0.82 (test code = 415) EOSINOPHILS ABSOLUTE COUNT 0.16 K/ L 0.04-0.54 (BEAKER) (test code = 416) BASOPHILS ABSOLUTE COUNT (BEAKER) 0.03 K/ L 0.01-0.08 (test code = 417) IMMATURE GRANULOCYTES-RELATIVE 0 % 0-1 PERCENT (BEAKER) (test code = 2801) [id number] 13:22:00 Test Item Value Reference Range Interpretation Comments FERRITIN (BEAKER) (test code = 361) 169 ng/mL 5-275 VITAMIN B12 AND [id number] 13:22:00 Test Item Value Reference Range Interpretation Comments VITAMIN B12 (BEAKER) (test code = 254 pg/mL 213-816 774) FOLATE (BEAKER) (test code = 362) 10.2 ng/mL >=7.0 COMPREHENSIVE METABOLIC [id number] 12:57:00 Test Item Value Reference Range Interpretation Comments TOTAL PROTEIN 6.8 gm/dL 6.0-8.3 (BEAKER) (test code = 770) ALBUMIN (BEAKER) 3.8 g/dL 3.5-5.0 (test code = 1145) ALKALINE PHOSPHATASE 7 U/L 40-150 L (BEAKER) (test code = 346) BILIRUBIN TOTAL 0.4 mg/dL 0.2-1.2 (BEAKER) (test code = 377) SODIUM (BEAKER) (test 132 meq/L 136-145 L code = 381) POTASSIUM (BEAKER) 5.2 meq/L 3.5-5.1 H (test code = 379) CHLORIDE (BEAKER) 101 meq/L 98-107 (test code = 382) CO2 (BEAKER) (test 24 meq/L 22-29 code = 355) BLOOD UREA NITROGEN 36 mg/dL 7-21 H (BEAKER) (test code = 354) CREATININE (BEAKER) 1.93 mg/dL 0.57-1.25 H (test code = 358) GLUCOSE RANDOM 88 mg/dL 70-105 (BEAKER) (test code = 652) CALCIUM (BEAKER) 9.2 mg/dL 8.4-10.2 (test code = 697) AST (SGOT) (BEAKER) 18 U/L 5-34 (test code = 353) ALT (SGPT) (BEAKER) 16 U/L 6-55 (test code = 347) EGFR (BEAKER) (test 35 mL/min/1.73 ESTIMA WALDEMAR GFR IS code = 1092) sq m NOT ACCURATE CREATININE CLEARANCE IN PREDICTING GLOMERULAR FILTRATION RATE . ESTIMATED GFR I S NOT APPLICABLE FOR DIALYSIS PATIEN TS. IRON, TIBC, % SAT. (WITHOUT FERRITIN)2017-01-06 12:47:00 Test Item Value Reference Range Interpretation Comments IRON (BEAKER) (test code = 547) 86 ug/dL 40-160 TOTAL IRON BINDING CAPACITY 425 ug/dL 250-450 (BEAKER) (test code = 769) IRON % SATURATION (2) (BEAKER) 20 % 20-55 (test code = 2590) RETICULOCYTE [id number] 12:29:00 Test Item Value Reference Range Interpretation Comments RETICULOCYTE COUNT PCT (BEAKER) (test 2.1 % 0.5-1.8 H code = 575) CBC W/PLT COUNT & AUTO [id number] 12:29:00 Test Item Value Reference Range Interpretation Comments WHITE BLOOD CELL COUNT (BEAKER) 4.3 K/ L 3.5-10.5 (test code = 775) RED BLOOD CELL COUNT (BEAKER) 2.67 M/ L 4.63-6.08 L (test code = 761) HEMOGLOBIN (BEAKER) (test code = 8.4 GM/DL 13.7-17.5 L 410) HEMATOCRIT (BEAKER) (test code = 26.6 % 40.1-51.0 L 411) MEAN CORPUSCULAR VOLUME (BEAKER) 99.6 fL 79.0-92.2 H (test code = 753) MEAN CORPUSCULAR HEMOGLOBIN 31.5 pg 25.7-32.2 (BEAKER) (test code = 751) MEAN CORPUSCULAR HEMOGLOBIN CONC 31.6 GM/DL 32.3-36.5 L (BEAKER) (test code = 752) RED CELL DISTRIBUTION WIDTH 13.8 % 11.6-14.4 (BEAKER) (test code = 412) PLATELET COUNT (BEAKER) (test 288 K/CU MM 150-450 code = 756) MEAN PLATELET VOLUME (BEAKER) 10.2 fL 9.4-12.4 (test code = 754) NUCLEATED RED BLOOD CELLS 0 /100 WBC 0-0 (BEAKER) (test code = 413) NEUTROPHILS RELATIVE PERCENT 57 % (BEAKER) (test code = 429) LYMPHOCYTES RELATIVE PERCENT 30 % (BEAKER) (test code = 430) MONOCYTES RELATIVE PERCENT 10 % (BEAKER) (test code = 431) EOSINOPHILS RELATIVE PERCENT 2 % (BEAKER) (test code = 432) BASOPHILS RELATIVE PERCENT 1 % (BEAKER) (test code = 437) NEUTROPHILS ABSOLUTE COUNT 2.44 K/ L 1.78-5.38 (BEAKER) (test code = 670) LYMPHOCYTES ABSOLUTE COUNT 1.30 K/ L 1.32-3.57 L (BEAKER) (test code = 414) MONOCYTES ABSOLUTE COUNT (BEAKER) 0.41 K/ L 0.30-0.82 (test code = 415) EOSINOPHILS ABSOLUTE COUNT 0.09 K/ L 0.04-0.54 (BEAKER) (test code = 416) BASOPHILS ABSOLUTE COUNT (BEAKER) 0.03 K/ L 0.01-0.08 (test code = 417) IMMATURE GRANULOCYTES-RELATIVE 0 % 0-1 PERCENT (BEAKER) (test code = 2801) BEDSIDE GLUCOSE SWLHWRN3879-75-89 21:55:22222Auqjaxey HermannBEDSIDE GLUCOSE GPCBTMK1769-92-97 16:40:19402Gtkvutid UebrjyuSRUYGFXEC0045-27-75 13:58:3412.2 [facility] RzpmdqlIJEZSTJWK4113-96-73 13:58:348.8[facility] HermannCHEMISTRY 2012-11-15 13:58:3427[facility] EbycyegRYUYDCASJ8764-14-26 13:58:3463[facility] XzjglseACOVBCVMC2728-96-15 13:58:341.2[facility] JdjtyzpDHSMMYPIB6025-64-01 13:58:69147Wglmvlmy JzjqjgmRZCQMVBDO8734-24-85 13:58:3421[facility] VUHBKVUVM6592-76-24 13:58:44280Irlreuja GqegeflFMZAPJIDV6907-64-34 13:58:344.2 [facility] EzmetirSMMFRFLOV9104-88-63 13:58:59578Gkqgioto HermannBEDSIDE GLUCOSE LZJJERK6509-66-82 11:25:96568Wveamwua BttateyMJFDINRIJ4064-28-94 23:45:5815.5 [facility] FbggmvdKIILMNSZU1752-48-40 23:45:588.9[facility] HermannCHEMISTRY 2012-11-14 23:45:5857[facility] ItljmlyAXEITSTBJ1665-48-64 23:45:32932Ftgxglew WzwdcocYURCQCTYO8741-67-62 23:45:5826[facility] ZcovaczTVGKRQHMI9045-11-46 23:45:584.5[facility] WbhknuxSVJUFXTVG6350-07-43 23:45:581.3[facility] EGGLJMAUN6816-27-08 23:45:41513Unetuogn VbmtbxjDUNDPWCPN6349-27-73 23:45:5824 [facility] VxuawddVZOVBZIWZ1095-31-09 23:45:38539Wlpykxys HermannCHEMISTRY 2012-11-13 16:07:85927Wfkuqjxn CuidkecNQIFALQPD6716-09-85 16:07:0028[facility] XolexpwIJITHKJDO1837-72-71 16:07:0070.4[facility] TmwcnwdEEWIJRQSE4073-15-73 15:48:202.310[facility] JpbcldkTHIMEFADP7929-17-67 15:48:58002Rtizlmfv [place] SEDHSJFRP6388-06-57 15:48:2023.0[facility] PkrsgkdFSOEZOMXZ2635-86-65 15:48:2020 [facility] FikkfbwOOLXZIYQC9711-39-77 15:48:2019.9[facility] HermannCHEMISTRY 2012-11-13 15:48:3[facility] AmsvpufOSMJWPGAB1983-85-56 15:48:95778Dcnhswhm AjysccwUSYTZAPKR0944-67-97 15:48:208.9[facility] UxvnsiuIAVDCUZNS1513-53-79 15:48:204.9[facility] ExnecteEAABFKRNJ8425-00-17 15:48:201.2[facility] [place] SLTTDKFTL7420-97-37 15:48:70949Vpfpvmur NlvysdnHPCLKZBPP7024-39-30 15:48:16119 [facility] CsgldszQLFUOOCRI9926-01-66 15:48:2023[facility]annCHEMISTRY 2012-11-13 15:48:201.8[facility] XkcesrcBSGOGFCYH3566-55-34 15:48:204.9[facility] VxxnxhwEXABQQRYX8965-07-06 15:48:23779Usfoygdb CczctknAYVGNJMNJL0949-35-23 11:49:27909Bvzlcsjo KswoktnLBWIYGSROG9976-15-46 11:49:4814.7[facility] JPZSDNEUNC1631-06-68 11:49:4832.7[facility] YicmwihEGYPSZXHHQ7886-72-95 11:49:48 8.3[facility] AjszgbtNQAVZBTLFS1736-89-87 11:49:483.64[facility] HermannHEMATOLOGY 2012-11-13 11:49:4834.4[facility] GifmzkwVEAYFZIQWS7787-17-74 11:49:4811.3[facility] GztjbxsNBXRKASMEK0067-63-94 11:49:485.3[facility] VwpvvoxGMSLICETRN4070-50-22 11:49:4894.7[facility] HoritwwOHGADFZMAQ4392-72-96 11:49:48 Test Item Value Reference Range Interpretation Comments MCH (test code = MCH) 30.9 pg 27.0-31.0 N [facility] MkxugglUJCYUYBFT2092-46-42 11:20:005.3[facility] HermannCHEMISTRY 2012-11-12 11:20:001.5[facility] BkujtrdLDFNSELRP4287-89-03 21:13:00<0.02 [facility] XbunirqGRMAYTAIM4462-44-49 21:13:00<0.010[facility] HermannCHEMISTRY 2012-11-08 21:13:0035[facility] XsxkqizNVEKHWZXG8669-59-76 14:50:00<0.010 [facility] DgwawxfDAZEEXUKN8597-09-63 14:50:00<0.02[facility] HermannCHEMISTRY 2012-11-08 14:50:0031[facility] WsquncjGIEGVAUBD4274-99-65 06:02:001.6[facility] TdiqwqhYDWCYANMV8279-89-49 06:02:004.8[facility] QrdfcijDPMMLVMCTF1770-14-11 07:10:005.7[facility] FwrzgvlBTPEPFHMSD7361-91-96 07:10:004.1[facility] RFWDUWURBP0561-22-33 07:10:000.5[facility] AvprghoZFGQULUPEK0912-82-91 07:10:002.7 [facility] CdtchckPZBKYEQUAR1379-87-35 07:10:000.6[facility] HermannHEMATOLOGY 2012-11-07 07:10:000.5[facility] SzzmunmVWOVTDWFZK5534-58-38 07:10:008.1[facility] RcoibnoBJWENOPGEC0826-45-99 07:10:0052.1[facility] NhdwovvSMWPHZDRUV2753-45-17 07:10:0033.6[facility] KajibwhBQDCOIGZLH2239-51-86 07:10:98453Phrjmdqu [place] XWYDCURMDO0142-53-27 07:10:0015.0[facility] HgekttaJUHITGSKOC6478-41-30 07:10:00 8.1[facility] OglowreIWABUTZCLG1302-88-73 07:10:00 Test Item Value Reference Range Interpretation Comments MCH (test code = MCH) 31.0 pg 27.0-31.0 N [facility] KybtlcrZAQZYUAULB1067-68-51 07:10:0032.8[facility] HermannHEMATOLOGY 2012-11-07 07:10:0034.4[facility] IfeuqoxVZTLHFULTT2577-79-89 07:10:0094.4[facility] UiuspguWDEDKSVZHV5387-72-52 07:10:007.9[facility] XpoktnmGJCHIWDAWS4289-39-00 07:10:0011.3[facility] ZxcqiehISZCYHWKNN3716-92-77 07:10:003.64[facility] RPOLEYHIGK5493-98-30 07:45:34929Eekeqnku RernpfsPUDHMIQJSG5585-83-63 07:45:00 33.4[facility] HvyybwkLLAIETSUBV5440-90-54 07:45:008.3[facility] HermannHEMATOLOGY 2012-11-04 07:45:0014.7[facility] YqikdpzZDRBHHIAAL9820-45-08 07:45:003.28[facility] RirckmxKCFLMDAXHB6675-26-34 07:45:006.8[facility] LgcapnlAESDQAKHIU8686-31-81 07:45:00 Test Item Value Reference Range Interpretation Comments MCH (test code = MCH) 31.0 pg 27.0-31.0 N [facility] FzdgyamBPSOTREENS1802-88-98 07:45:0030.5[facility] HermannHEMATOLOGY 2012-11-04 07:45:0010.2[facility] WnyansuEPCCWJIRWV7510-88-61 07:45:0092.8[facility] VydinshKQMOHJLPZR3452-72-13 07:45:0010.1[facility] CfthkvwHXOSIFFSYT9434-94-58 07:45:0050.5[facility] AypeqwrZZSFNVRJEB5935-99-20 07:45:0032.2[facility] [place] SYFVTHNMFS8891-17-53 07:45:002.2[facility] AoquvhuFBVJDLTPOY1250-01-31 07:45:000.8 [facility] DeqvdzfENWCYMLGTU9654-61-29 07:45:000.7[facility] HermannHEMATOLOGY 2012-11-04 07:45:003.4[facility] KqmhgpbNSHHWZAIVS0449-59-98 07:45:006.4[facility] LaomwobZGIGLWTQOY6145-84-58 07:45:000.1[facility] NwvakszQYCJECBITM5325-67-49 07:45:000.4[facility] KZQKQOB0298-11-73 14:30:25Product available (11/03/2012 09:30:25)[facility] GHNQKWA8933-94-07 14:30:00Negative (11/03/2012 09:30:00)[facility] GlsjjsuSUTSSZDGFG8920-48-21 08:42:195.9[facility] YtzdrnrHHGNFWTFAR8499-16-47 08:42:1910.8[facility] STWXBSRLZP6462-98-12 08:42:1931.9[facility] AqhutjuFLUNHJPJYT2093-54-35 08:42:19 3.2[facility] XbjjnrnZBESARPGIK9013-60-62 08:42:192.0[facility] HermannHEMATOLOGY 2012-11-03 08:42:190.7[facility] BsymwcsKWGJDGJTNF8215-25-65 08:42:190.4[facility] LzwvcxcLZAXGLAUBB4460-24-90 08:42:190.7[facility] AmbykdyETKTSOXALC9912-64-14 08:42:1950.7[facility] MkrkcjqTDQDIPWGRF6094-46-08 11:18:000.1[facility] DGSNTLMFSN5901-27-38 08:31:000.1[facility] HermannBEDSIDE GLUCOSE TESTING 2012-10-27 01:47:03095Vjckitaw HermannBEDSIDE GLUCOSE KLYOUIA3344-94-07 22:48:00 168[facility] HermannBEDSIDE GLUCOSE KSMPDZW9408-94-50 16:57:03659Gdijuepl [place] YLOUGTGGZ7469-66-37 08:02:0070[facility] IaxtqyoEHRIHREMB9413-27-98 08:02:26497 [facility] NptvtczHKIAKAEGB5269-46-09 08:02:0020[facility] HermannCHEMISTRY 2012-10-26 08:02:0027[facility] YblfblgDTPWHICDI4096-66-10 08:02:88599Jkupwqdq XqczmbtVTENRFFOE3075-73-06 08:02:001.1[facility] WostiojVMIZKUUVS2776-18-44 08:02:0098[facility] VdesxtkWZBCXWPKX5570-07-64 08:02:004.6[facility] [place] OGCVTIWGP9585-98-68 08:02:008.2[facility] WdxxmcjJFRAVGFLB9318-54-15 08:02:0016.6 [facility] RzlzivvVGNVFFURB0286-60-87 08:02:004.6[facility] HermannCHEMISTRY 2012-10-26 08:02:001.5[facility] NjtzipkOJRXLJOBXW5977-67-52 08:02:008.1[facility] YlmilrmJMXDZMXYEN9365-61-45 08:02:007.8[facility] YvgpyknHPDPFGTMAO3307-37-63 08:02:0093.0[facility] OcudkvqERHKIEAVDC8283-88-10 08:02:0023.3[facility] BFWIBLAHLQ9930-66-99 08:02:00 Test Item Value Reference Range Interpretation Comments MCH (test code = MCH) 31.3 pg 27.0-31.0 H [facility] KloazinGYDFXQBHCQ4144-70-07 08:02:0033.7[facility] HermannHEMATOLOGY 2012-10-26 08:02:0014.3[facility] GmqwaesGRLZWZEUPR2680-19-54 08:02:91004Xgyimqtq RsusfnwXHNTOVPTCK0130-54-16 08:02:002.50[facility] SkjjwhjIQKIGGWSYQ5499-20-30 08:02:005.6[facility] PbwzcooFWFZSFLTC9466-40-39 10:19:0010.6[facility] WBFIKTETR2080-82-96 10:19:0079[facility] KyuymtbFCLWBKNTD6175-66-25 10:19:61368 [facility] EjmidgjIWCLWKXJM3836-54-52 10:19:0016[facility] HermannCHEMISTRY 2012-10-24 10:19:94682Yysyuvba HloihamHBGFYIVIZ8573-40-74 10:19:001.0[facility] OfjzjuaAPYTRLLHP0997-00-73 10:19:009.1[facility] YkvgtktBUJPNTTWY3481-38-78 10:19:004.6[facility] SqhknwuMGIHAUYXN0071-13-43 10:19:94236Dlybhlmq [place] FWHNMYGRT9849-70-31 10:19:0030[facility] VddkeziWEIPNGDGXS1681-80-68 10:19:000.2 [facility] WeodmfhZKRDQYZNRS3836-77-20 10:19:004.3[facility] HermannHEMATOLOGY 2012-10-24 10:19:0010.4[facility] KdfyqxbWNYEBGQDUE7944-69-16 10:19:002.4[facility] ClhatohHEWQAJNRBK9005-71-82 10:19:004.1[facility] WjouvoeROOGYOOORA0704-94-98 10:19:000.8[facility] BsvcnkvRWDKRSJEKS1888-46-63 10:19:002.0[facility] [place] MTFLRURQDV0447-98-66 10:19:000.3[facility] WdwvuneWNVJDFOQXP3633-68-31 10:19:00 55.7[facility] YofmtboNAIUPCKWUW5348-32-69 10:19:0027.2[facility] HermannHEMATOLOGY 2012-10-24 10:19:00 Test Item Value Reference Range Interpretation Comments PTT (test code = PTT) 31.1 s 22.9-35.8 N [facility] FpzrksaXSSOSKKCGT0548-63-16 10:19:001.24[facility]annHEMATOLOGY 2012-10-24 10:19:00 Test Item Value Reference Range Interpretation Comments PT (test code = PT) 15.5 s 12.0-14.7 H [facility] PqeexsdEAMXVHVSCO0474-77-62 10:19:42384Atosybtd HermannHEMATOLOGY 2012-10-24 10:19:0014.5[facility] OvcsvsnMDGXBSONSQ2108-98-79 10:19:008.1[facility] TpxnvkwMPSZONQTXO8668-11-71 10:19:002.91[facility] BpensucERHSWIPGMS2739-24-19 10:19:0027.5[facility] TgmbutjYUTNJXZSKR2954-49-72 10:19:008.8[facility] [place] EJCNEMBDNK7428-81-45 10:19:0094.4[facility] VhrscohJTMYMPJIQN5151-22-49 10:19:00 Test Item Value Reference Range Interpretation Comments MCH (test code = MCH) 30.4 pg 27.0-31.0 N [facility] KehvsqbDHYJEHVFYS5816-65-83 10:19:0032.2[facility] HermannHEMATOLOGY 2012-10-24 10:19:007.4[facility]annBLOOD BANK WBLPDKQ7315-38-90 09:30:00 Negative (10/24/2012 04:30:00)[facility] ZmojdzuQGZVKXHXTD1325-74-45 09:02:4461.3 [facility] DipimdpALSGLMGLJZ2700-07-60 09:02:4422.3[facility] HermannHEMATOLOGY 2012-10-21 09:02:4412.1[facility] HewiqrjTCGXPKMSAQ8180-26-08 09:02:440.1[facility] RsjfgpcKDIMSUBCVV9988-53-64 09:02:440.2[facility] YggivufRMHFLBCYZZ2587-93-11 09:02:440.8[facility] TijvyohJHCDQNFVUP1129-64-79 09:02:444.2[facility] [place] NXAMNQVMYE0615-24-22 09:02:441.5[facility] IwjlgzuVPLPTZILFQ2455-50-80 09:02:440.8 [facility] GriwqzrQSUYQDOHRG2365-86-82 09:02:443.5[facility] HermannHEMATOLOGY 2012-10-21 09:02:448.6[facility] CfnaupvFXYKJWNEJT1979-94-93 09:02:446.9[facility] IhmswkxWOLJCEVQZZ7957-34-06 09:02:44 Test Item Value Reference Range Interpretation Comments MCH (test code = MCH) 30.9 pg 27.0-31.0 N [facility] IsgcvbyZXQRYGGURN7280-00-07 09:02:4494.1[facility] HermannHEMATOLOGY 2012-10-21 09:02:4424.6[facility] VszcbxwUYRTYYBTUG5255-80-45 09:02:448.1[facility] HztytnwPXVPRCKGRZ8617-76-87 09:02:442.62[facility] YwbhffzPPOREOKRAV5364-14-37 09:02:4414.5[facility] LsklwlxPOJNYUYFFS2253-13-56 09:02:4432.9[facility] GVRKLKYYFR5334-21-76 09:02:76096Lgkqyget AbtlvxbAAMWIRIKC0835-77-50 09:34:0063 [facility] DajumynPHDZWJTDL6369-92-37 09:34:88110Hdmiymtk HermannCHEMISTRY 2012-10-20 09:34:0024[facility] BixpfhiHZDQSZFFI7931-66-81 09:34:001.2[facility] QeojtqxAMRRJUFFU9679-57-76 09:34:46549Bebhflal IszkigrABRLQAPVT2682-48-47 09:34:004.7[facility] GnsbvelCOICNJZJS6025-31-76 09:34:30261Xebammqf Aric PGDUCPCQW9749-97-12 09:34:0017.7[facility] PtfobwaTGOIASNYV7854-90-01 09:34:0023 [facility] LfgzkklMKTAYRGFH9528-46-30 09:34:008.3[facility] HermannCHEMISTRY 2012-10-20 09:34:002.2[facility] RjuphmhFBMSHKMCZS4118-88-45 09:34:0073.4[facility] FtgceipASKQSMLDTS9787-46-64 09:34:0014.1[facility] OxcedmyGQVCCWMMHV3896-98-48 09:34:002.6[facility] CzgloaqMKDAZXYRSF8813-21-75 09:34:009.3[facility] YVDWAPWIHP0090-30-28 09:34:000.2[facility] LkvudprNQFJUKWFCV3738-70-87 09:34:006.6 [facility] KkpthhvWBJXFHPLZY0795-89-40 09:34:000.6[facility] HermannHEMATOLOGY 2012-10-20 09:34:000.1[facility] VrmwcfmYYKVOVMWXZ9158-17-54 09:34:000.8[facility] CbnvpgoRRJKYZUZIG5693-17-62 09:34:001.3[facility] JkyyjyfSIDHKVJJG8353-71-12 15:39:71244Afoidscw EwfjobqHMAOQBZSA9541-78-56 15:39:0060.0[facility] OLGTJVWSE2801-25-24 15:39:007.38[facility] JaxpyniMXYZIPROH5807-83-45 15:39:0032 [facility] YlzaucvRZITTLIYW5012-42-47 15:39:0047[facility] HermannCHEMISTRY 2012-10-19 15:39:0028[facility] GvotzwcWFDDAJXBY4627-92-68 15:39:002[facility] UfkoavkUAULYRYRU9564-13-63 15:39:0037.0[facility] DagjhkfHMDEDODMH8763-85-86 15:39:001.21[facility] GfzalryCDBZMRPIP2022-00-57 15:39:0025.0[facility] ASYZTRNPM6848-64-88 15:39:004.4[facility] WlzxprmGBYAGYOTE6080-22-08 15:39:34747 [facility] XxaayvlLWLXHGZRO6924-50-24 15:39:000.7[facility] HermannCHEMISTRY 2012-10-19 10:31:281.4[facility] MumkxnbMJUKVMJKQ8701-86-98 10:31:284.7[facility] XuxdxywQCDZCMENGR2708-28-60 10:31:28 Test Item Value Reference Range Interpretation Comments PTT (test code = PTT) 30.8 s 22.9-35.8 N [facility] ObujsrlVEWXVUCZDH5560-32-96 10:31:221.26[facility] HermannHEMATOLOGY 2012-10-19 10:31:22 Test Item Value Reference Range Interpretation Comments PT (test code = PT) 16.0 s 12.0-14.7 [facility] VTPUXOC7681-99-62 10:15:00Negative (10/19/2012 05:15:00)[facility] GmxvxdkZUPLIPJRC5614-96-86 08:24:004.1[facility] NKQWXJHMMN8875-71-44 09:16:09Negative *NA*(10/16/2012 04:16:09)[facility] Aric XHYVUSYXID6170-20-69 09:16:04 Test Item Value Reference Range Interpretation Comments PTT (test code = PTT) 37.0 s 22.9-35.8 H [facility] KxygsrrGTDFYQGUMR3378-14-12 09:16:041.30[facility] HermannHEMATOLOGY 2012-10-16 09:16:04 Test Item Value Reference Range Interpretation Comments PT (test code = PT) 16.4 s 12.0-14.7 H [facility] XOOVVFI9986-35-36 09:55:00Negative (10/15/2012 04:55:00)[facility] HldijbmRLYEMVQSU3389-30-78 09:03:0067[facility] HermannCHEMISTRY 2012-10-15 09:03:002.3[facility] EjehhxmOYZFVSLZI4330-00-92 09:03:000.9[facility] SudoxxkGBCHAYIYL8882-71-01 09:03:000.3[facility] NlvwadmKSIBOORXJ4101-17-90 09:03:0028[facility] ElhnhsgPXIRQUEOG1331-74-20 09:03:0058[facility] SFTSAHPOV0933-36-36 09:03:005.5[facility] ZhgejuzRRSNDPWTP5245-98-14 09:03:000.6 [facility] HfwbhthLEBDAKSWB3840-80-40 09:03:003.2[facility] HermannCHEMISTRY 2012-10-15 09:03:000.7[facility] RnkhrepFJWTVLVKQ5692-99-25 09:03:0088[facility] ZdborjdMGKVEYOBW7605-46-52 05:46:300.5[facility] TlldqxiAZPVAZWJI8062-96-00 05:46:303.1[facility] JmgdwntMALVXWSZQ5042-00-62 05:46:300.7[facility] YSFSWERIV8969-51-04 05:46:3082[facility] KfdgouzQXWGMTRJG0173-95-51 05:46:3033 [facility] MrjdkyhJZKOJOMCM7720-51-78 05:46:300.4[facility] HermannCHEMISTRY 2012-10-14 05:46:300.9[facility] TebqxeeFDEZDJAWU2874-03-01 05:46:305.2[facility] IqnwyjuQGMGRBOAB5667-41-53 05:46:302.1[facility] AnnqusaZFPIWHHQU2384-37-96 05:46:3062[facility] YqqexycBQWSPBBBL0012-39-73 05:46:36297Bqftlxvb Aric FXJDFHFCA0359-30-58 05:46:271.13[facility] EmrwvqwISEWBNTPB4677-08-25 05:46:271.14 [facility] AabevalVCSZBMYCTC0754-34-17 06:47:75087.0[facility] HermannIMMUNOLOGY 2012-10-13 06:47:0011.9[facility] OezdtcvNCCALKQEC8609-98-65 05:19:001.10[facility] RlujkubQFNGWSQXY1114-44-01 05:19:001.14[facility] LzwmnykPKTJWCCLS0122-40-52 20:15:441.09[facility] EpnwrswGTTMUPVZL0933-68-38 20:15:441.14[facility] HFTHFLHOE8175-83-59 20:07:27610.0[facility] XhztxrbVAPPVEFZK4963-22-96 20:07:00-1 [facility] YgqqabbFYBAAZUPA4222-80-52 20:07:0037.0[facility] HermannCHEMISTRY 2012-10-11 20:07:007.31[facility] VteuhvsPQSDEMDMV7580-82-46 20:07:06523Drvkdwvo HewtbkeALCHSNKOK1141-49-50 20:07:0052[facility] MmkbtlnIPTJJMGMN8979-58-16 20:07:0026[facility] DbooxcfMTPMPOPWC7982-48-50 18:02:12956Wqmqsouz Aric HZNXARVGI2035-59-13 18:02:000.8[facility] NdpfxjwIYQACRMOG6147-83-13 18:02:0037.0 [facility] MkvcenkLPVIQVLGA9059-01-17 18:02:007.26[facility] HermannCHEMISTRY 2012-10-11 18:02:16990Lwrhkkrk ScpajuwKPRFTCJRM3012-04-00 18:02:001.25[facility] XhpzmzoEUOQUGFQL4334-79-62 18:02:004.1[facility] WwllgmwYVPHVNFXR3100-70-39 18:02:0072[facility] AdzuuoxKUXFNDCTN2475-72-53 18:02:0027[facility] HXMWSHMSP1534-90-35 18:02:0061[facility] ZksnlzvNMNERLAHT4524-20-23 18:02:000 [facility] XxswttcLLZZWBHEN6491-71-48 18:02:0026.0[facility] HermannCHEMISTRY 2012-10-11 18:02:0092.0[facility] KwvdeswHLVBQYWNO5598-00-10 16:23:002[facility] UwuwdaxSWBQTEXWL9105-89-64 16:23:0029[facility] TomsncoXORGPSRVO0958-75-52 16:23:0058[facility] JoakonbDJKAGHOBE5784-74-38 16:23:003.8[facility] WJTKCQTXG6528-13-60 16:23:16098Qqdtclvf ZxmfycdCXVKYXIFP7639-80-86 16:23:0094.0 [facility] NkujbvxJUILRZDVE4103-14-68 16:23:0023.0[facility] HermannCHEMISTRY 2012-10-11 16:23:001.25[facility] KomgjvbPLQZGNRQW4052-93-69 16:23:000.6[facility] YdkwurbBSWDQQCGZ0824-02-97 16:23:75615Cltepwme GnoirxgBCVNGWCRX3854-83-72 16:23:0037.0[facility] SertewfDMFETJNRC3757-19-80 16:23:0079[facility] ZLPCQROYA0904-38-69 16:23:007.30[facility]BL[facility] NNLAFYA9558-97-58 07:11:00Product available (10/11/2012 02:11:00)[facility] ATDJYZA3105-10-26 07:11:00Product available (10/11/2012 02:11:00)[facility] HermannINFECTIOUS YLNXOMAV0410-34-25 18:48:09Negative 2(10/10/2012 13:48:09) [facility]annSTOOL GBBKQ2034-59-97 18:46:43Negative (10/10/2012 13:46:43) [facility] TkhhyrcJUNCSNXMU0921-75-66 18:57:0099[facility] HermannCHEMISTRY 2012-10-09 18:57:00-3[facility] HduyyltGJPRYPMZA8545-50-25 18:57:0023[facility] IevomyqJUHYATNED6821-38-93 18:57:0097.4[facility] IwixsyiVSAJHNODT7483-59-67 18:57:0040[facility] DkovdfjTDXRMWGHU2078-89-55 18:57:007.36[facility] XBMEGODHY9642-15-47 18:57:0037.0[facility] TuvbbwxJQPBGPYVX9423-49-45 18:38:0013.1 [facility] JlkzaazPBDJEFEIH6574-52-87 18:38:000.3[facility] HermannCHEMISTRY 2012-10-09 18:38:107612Xjscwobd NwjqpyqYUGDBLPCJ5094-55-04 18:38:001.30[facility] RknosbmKAPFAPOHF5347-59-15 18:38:000.111[facility] GzjtkyyVWAGMSWTC2866-70-36 08:59:000.134[facility] TxbfrtiFSLFJBHTC2178-79-11 08:59:001.37[facility] [place] HTCAFMPMK6247-10-78 02:45:000.7[facility] BgligudYAXVMYGYG4316-63-87 02:45:0025.9 [facility] SjvkyxjVUHENSNFB1608-18-70 02:45:000.155[facility] HermannCHEMISTRY 2012-10-09 02:45:001.65[facility] XrhkdbwWMURSIGPC7286-03-55 02:45:553529Xeiyfmaj JcsfcpoLGSOKHEBF4379-77-38 23:43:141.5[facility] HermannBACTERIAL - SEROLOGY 2012-10-08 21:05:00Negative 1(10/08/2012 16:05:00)[facility]annCHEMISTRY 2012-10-08 21:05:000.5[facility] VcqjyhwQWXRZPCXH0585-57-71 21:05:00610Lteppczr XolmghrQLBXYVBMT3801-36-59 21:05:006.5[facility] PxevmbtXPVTXXJRM5869-38-68 21:05:003.8[facility] WffcrqpLMYDNGIPP8570-93-30 21:05:0099[facility] VWCSLUOWU9428-28-90 21:05:000.2[facility] XydbzfaRSUNJNPYV1944-09-70 21:05:0042 [facility] DbtrxyqXQYGRJESX0159-16-85 21:05:001.4[facility] HermannCHEMISTRY 2012-10-08 21:05:002.7[facility] LfimusgXDXZCKDMP2810-70-11 21:05:000.3[facility] ZohxdtaKYEUOQRBH7021-21-85 21:05:500689Mgjqxuyh IzytfktFHGULTENR2507-05-20 21:05:0033.2[facility] MjbnpzkBSVLTHFQK0627-39-82 21:05:001.1[facility] IOOYACRCR1845-12-93 21:05:08500Oigjjtqj WloiuvrXZBUSDUYO8310-45-73 21:05:0018 [facility] LrcjpyzEEQIHNXKB0812-72-78 21:05:003.3[facility] HermannCHEMISTRY 2012-10-08 21:05:001.1[facility] SlvafdvPAUVHFFAY6924-97-11 21:05:007.0[facility] YapgpmlUWSWFWHCV3278-87-11 21:05:000.5[facility] OtvqhknKDHNQGQFV1843-71-51 21:05:0093[facility] QqbwkkuXMYKJOCGX3081-94-45 21:05:003.7[facility] [place] FUMNJMHJG3274-72-82 21:05:0044[facility] SroiqciNJRACSBGFX4042-79-23 21:05:71184 [facility] IgrtlfkXZIIRZOIJY4143-60-90 21:05:00Negative *NA*(10/08/2012 16:05:00) [facility] UgksyqwURXJQGUXH0170-06-88 18:14:3990.6[facility] HermannCHEMISTRY 2012-10-08 18:14:3937.0[facility] RowzcmgWOQMCNYPV1756-62-59 18:14:39-5[facility] XtcywqsDLXKERFMO2763-45-59 18:14:397.22[facility] DaadqwaXKGDZMYHU3093-88-37 18:14:3958[facility] NqooaxfSRWKQXMFS5976-62-67 18:14:3972[facility] VIPMCCCQD2670-81-36 18:14:3924[facility] UrsvhfkKIUXKAJYX2158-21-46 15:40:17-7 [facility] SvyxcgkZMZUAGRYM6107-29-65 15:40:1740.2[facility] HermannCHEMISTRY 2012-10-08 15:40:1737.0[facility] JrjkluoKPVHGUULP3224-88-87 15:40:177.27[facility] GkxpfpyDSHLSMSLS2743-71-52 15:40:1744[facility] KkldxfwISKCTKPWW7850-39-77 15:40:1727[facility] CvmmaerJQBFLDAFD3510-40-24 15:40:1720[facility]annBLOOD BANK HQIVVWA7273-14-96 15:40:00Result Note (10/08/2012 10:40:00)[facility] MACALQXYL7149-84-11 15:40:0021(10/08/2012 10:40:00)[facility] HermannCHEMISTRY 2012-10-08 15:40:0020(10/08/2012 10:40:00)[facility] JtqtajkYHPMRHHKO1980-20-98 15:40:003.1[facility] AisczkvFPHLORQSBZ8250-12-89 15:40:001.7[facility] NZDZITEHNS8241-45-02 15:40:0013.5[facility] LwehrtnESZGAQXUAY8767-35-71 15:40:00 Test Item Value Reference Range Interpretation Comments Split Point (test code = Split Point) 0.[address] [facility]PsfmhowGXVYRHMOLD8573-32-26 15:40:00 Test Item Value Reference Range Interpretation Comments R-time (test code = R-time) 0.6 min 0.4-0.[address] [facility] CenterOyppgqnHTAQOWEGCB5453-04-62 15:40:00 Test Item Value Reference Range Interpretation Comments Angle (test code = Angle) 81 degrees 64-[address] [facility] CenterJwcikeoGMFSXGYCWT7515-26-32 15:40:00 Test Item Value Reference Range Interpretation Comments Max Amp (test code = Max Amp) 73 mm 52-[address] [facility] CenterAfltmpoDOIMLFVZSA5269-95-49 15:40:00 Test Item Value Reference Range Interpretation Comments K-time (test code = K-time) 0.8 min 0.6-2.[address] [facility] CenterLuawfyvHYZYOQKIWF9053-41-96 15:40:00 Test Item Value Reference Range Interpretation Comments ACT (TEG) (test code = ACT (TEG)) 105 s 86-118 N [facility]
[2019-11-08 17:50] LABS: Absolute Lymphocytes (CBC) 1.3 K/uL (0.7-4.9); Basophils % 0.6 % (0-1.3); Hematocrit 24.4 % (39.6-49.0); Lymphocytes % 16.3 % (15.3-44.8); MPV 8.7 fL (7.6-11.3); RBC Red Blood Cell Count 2.61 M/uL (4.33-5.43)
[2019-11-08 17:53] LABS: Protime INR 1.32
[2019-11-08] MEDS ORDERED: ACETAMINOPHEN 500 MG TAB ONE (17:54)
[2019-11-08] MEDS ORDERED: CEFTRIAXONE/SWI 1gm 1 GM/10 ML SYR ONE (17:54)
--- NOTE | 2019-11-08 18:04 | RAD REPORT ---
EXAM DESCRIPTION: Louisa Single View11/08/2019 5:54 pm CLINICAL HISTORY: Fever COMPARISON: none FINDINGS: Lungs appear grossly clear. The heart is moderately enlarged Post surgical changes involve chest. Pacemaker leads place
[2019-11-08 18:15] LABS: Potassium 3.9 mmol/L (3.5-5.1); Troponin (Emerg Dept Use Only) 0.03 ng/mL (0.0-0.045)
[2019-11-08] MEDS ORDERED: NA CHLORIDE 0.9% 1,000 ML ONE (18:25)
--- NOTE | 2019-11-08 19:30 | ER ---
Nurse's Notes [facility] Name: Bc Hui Age: 73 yrs Sex: Male : 1945 Arrival Date: 11/08/2019 Time: 16:49 Bed 19 Private MD: Ken Roman S Diagnosis: Urinary tract infection, site not specified Presentation: 11/07 17:01 Chief complaint: Spouse and/or significant other states: "he was here earlier today jd3 sent by his primary to get some tests ran in the inside lab. those tests were so we could see his primary on Monday. we are thinking he has a UTI because of his altered mental status and fever.". Coronavirus screen: fever, Client presents with at least one sign or symptom that may indicate coronavirus-19. Standard/surgical mask placed on the client. Ebola Screen: Patient negative for fever greater than or equal to 101.5 degrees Fahrenheit, and additional compatible Ebola Virus Disease symptoms. Initial Sepsis Screen: Does the patient meet any 2 criteria? Temp <36.0*C (96.8*F)) or > 38.3*C (100.9*F). HR > 90 bpm. Yes Does the patient have a suspected source of infection? Yes: Dysuria/Frequency/Urgency/UTI Risk Assessment: Do you want to hurt yourself or someone else? Patient reports no desire to harm self or others. Onset of symptoms was November 08, 2019. 17:01 Method Of Arrival: Wheelchair jd3 17:01 Acuity: SAJAN 2 jd3 Historical: - Allergies: 17:05 No Known Allergies; jd3 - Home Meds: 17:05 aspirin 81 mg Oral chew [Active]; Protonix Oral [Active]; jd3 - PMHx: 17:05 Diabetes - NIDDM; High Cholesterol; stomach ulcer; jd3 - PSHx: 17:05 open heart; pacemaker; left rotator cuff; back; left wrist; jd3 - Immunization history:: Adult Immunizations up to date. - Social history:: Smoking status: Patient denies any tobacco usage or history of. Screenin:15 Abuse screen: Denies threats or abuse. Denies injuries from another. Nutritional sv screening: No deficits noted. Tuberculosis screening: No symptoms or risk factors identified. Fall Risk No fall in past 12 months (0 pts). No secondary diagnosis (0 pts). IV access (20 points). Ambulatory Aid- None/Bed Rest/Nurse Assist (0 pts). Gait- Normal/Bed Rest/Wheelchair (0 pts) Mental Status- Overestimates/Forgets Limitations (15 pts.). Total Lim Fall Scale indicates Low Risk Score (25-44 pts). Fall prevention measures have been instituted. Side Rails Up X 2 Placed close to Nursing Station Frequent Obs/Assesments occuring Family Present and informed to notify staff if they need to leave bedside As available Patient and Family Educated on Fall Prevention Program and strategies. Assessment: 17:14 Reassessment: Code Sepsis called. sv 17:15 General: Appears in no apparent distress. comfortable, obese, well developed, Behavior sv is calm, cooperative, appropriate for age. General: Reports fever and chills. Pain: Denies pain. Neuro: Level of Consciousness is awake, alert, obeys commands, confused, Oriented to person, place, time, situation. Cardiovascular: Pulses are palpable in right radial artery and left radial artery. Respiratory: Airway is patent Respiratory effort is even, unlabored, Respiratory pattern is regular, symmetrical. Derm: Skin is normal, Skin temperature is hot. Derm: pt has a dressing to the LLE. 19:05 Reassessment: Patient appears in no apparent distress at this time. Patient and/or jb4 family updated on plan of care and expected duration. Pain level reassessed. Patient is alert, oriented x 3, equal unlabored respirations, skin warm/dry/pink. PT is resting in bed comfortably, remains at the bedside. Patient states feeling better. Patient states symptoms have improved. 19:44 Reassessment: Patient appears in no apparent distress at this time. Patient and/or jb4 family updated on plan of care and expected duration. Pain level reassessed. Patient is alert, oriented x 3, equal unlabored respirations, skin warm/dry/pink. Pt and verbalized understanding of d/c and follow up instructions. Denies questions or concerns. assisted to vehicle via wheelchair. Vital Signs: 17:05 BP 96 / 64; Pulse 105; Resp 17 S; Temp 102.1(O); Pulse Ox 100% on R/A; Weight 103.42 kg jd3 (R); Height 5 ft. 9 in. (175.26 cm) (R); Pain 0/10; 17:50 Pulse 95; Resp 18; Pulse Ox 100% ; sv 19:20 BP 116 / 56 RA Supine (man/); Pulse 93; Resp 18; Temp 99.4(O); Pulse Ox 100% on R/A; jb4 17:05 Body Mass Index 33.67 (103.42 kg, 175.26 cm) jd3 ED Course: 16:49 Patient arrived in ED. mr 16:49 Ken Roman MD is Private Physician. mr 17:03 Triage completed. jd3 17:06 Arm band placed on. jd3 17:12 Yessenia Belle, UNA is Primary Nurse. sv 17:13 Emelyn Esqueda FNP-C is PHCP. kb 17:13 Tavia Maxwell MD is Attending Physician. kb 17:15 Patient has correct armband on for positive identification. Placed in gown. Bed in low sv position. Call light in reach. Side rails up X2. Adult w/ patient. Pulse ox on. NIBP on. Door closed. Head of bed elevated. 17:25 First set of blood cultures drawn by me. sv 17:35 Second set of blood cultures drawn by me. Inserted saline lock: 22 gauge in right sv wrist, using aseptic technique. ,using aseptic technique. diffusics Blood collected. Flushed right with 5 ml normal saline. 17:51 X-ray(s) taken. sv 17:54 Chest Single View XRAY In Process Unspecified. EDMS 19:19 Primary Nurse role handed off by Yessenia Belle RN jb4 19:19 Cristi Vela, UNA is Primary Nurse. jb4 19:21 Report given to Larry HEART. sv 19:44 No provider procedures requiring assistance completed. IV discontinued, intact, jb4 bleeding controlled, No redness/swelling at site. Pressure dressing applied. Administered Medications: 17:50 Drug: Rocephin 1 grams Route: IV; Rate: calculated rate; Site: right wrist; sv 17:52 Follow up: Response: No adverse reaction; IV Status: Completed infusion; IV Intake: 10mlsv 17:50 Drug: Tylenol 1000 mg Route: PO; sv 19:05 Follow up: Response: No adverse reaction; Temperature is decreased jb4 18:10 CANCELLED (Physician Discretion): NS 0.9% (30 ml/kg) 30 ml/kg IV at bolus once; Sepsis kb Protocol 18:15 Drug: NS 0.9% 1000 ml Route: IV; Rate: 1000 ml; Site: right wrist; sv 19:05 Follow up: Response: No adverse reaction; IV Status: Completed infusion; IV Intake: jb4 1000ml Intake: 17:52 IV: 10ml; Total: 10ml. sv 19:05 IV: 1000ml; Total: 1010ml. jb4 Outcome: 19:29 Discharge ordered by MD. kb 19:44 Discharged to home via wheelchair, with family. jb4 19:44 Condition: stable 19:44 Discharge instructions given to patient, family, Instructed on discharge instructions, follow up and referral plans. medication usage, Demonstrated understanding of instructions, follow-up care, medications, Prescriptions given X 1. 19:46 Patient left the ED. jb4 Addendum: 11/11/2019 15:51 Addendum: Culture Results: Positive blood culture. Phone call Attempt #1 pt states he i w is feeling better, followed up with Dr. Leija today. 18:13 Addendum: Other pt will call Dr. leija in morning. i w Signatures: Dispatcher [employer] EDMS Emelyn Esqueda, SHOE LAY OUT PLANNERKlaudia SHOE LAY OUT PLANNER-Yessenia Peters, RN Gayle Pickett Irene, RN Cristi Chan, UNA HEART jbTiburcio García RN RN jd3 Corrections: (The following items were deleted from the chart) 11/07 17:07 17:05 Pulse 105bpm; Resp 17bpm; Spontaneous; Pulse Ox 100% RA; Temp 102.1F Oral; 103.42 jd3 kg Reported; Height 5 ft. 9 in. Reported; BMI: 33.6; Pain 0/10; jd3 17:12 17:01 Chief complaint: Spouse and/or significant other states: "he was here earlier jd3 today sent by his primary to get some tests ran. we are thinking he has a UTI because of his altered mental status and fever." jd3 17:18 17:01 Coronavirus screen: fever, Client presents with at least one sign or symptom that jd3 may indicate coronavirus-19. Standard/surgical mask placed on the client. Provider contacted for isolation considerations. jd3 17:18 17:01 Initial Sepsis Screen: Does the patient meet any 2 criteria? Temp <36.0*C jd3 (96.8*F)) or > 38.3*C (100.9*F). HR > 90 bpm. Yes Does the patient have a suspected source of infection? Yes: Skin breakdown/wound jd3 19:31 19:20 BP 116 / 56; Pulse 93bpm; Resp 18bpm; Pulse Ox 100% RA; Temp 99.4F Oral; jb4 jb4
--- NOTE | 2019-11-08 19:30 | EDPHYS ---
Physician Documentation [facility] Name: Bc Hui Age: 73 yrs Sex: Male : 1945 Arrival Date: 11/08/2019 Time: 16:49 Bed 19 Private MD: Ken Roman S ED Physician Tavia Maxwell HPI: 11/07 19:00 This 73 yrs old Male presents to ER via Wheelchair with complaints of Altered kb Mental Status, Fever. 19:00 The patient reports fever, that was measured at 100.7 degrees Fahrenheit, with an kb emergency department temperature of 102.1 degrees Fahrenheit. Onset: The symptoms/episode began/occurred yesterday. Modifying factors: there are no obvious modifying factors. Associated signs and symptoms: Pertinent positives: altered mental status,\E\ chills, Pertinent negatives: abdominal pain, arthralgias, backache, cough, diarrhea, earache, headache, hemoptysis, myalgias, nausea, night sweats, runny nose, sinus congestion, sinus drainage, skin rash, shortness of breath, sore throat. Severity of symptoms: At their worst the symptoms were moderate in the emergency department the symptoms are unchanged. The patient has not experienced similar symptoms in the past. The patient has not recently seen a physician. reports pt has been altered since yesterday. States she had to remind him where they were going when they went places, otherwise normal mentation. Went to an appt with Dr Mills yesterday for procrit injection, but she wouldn't give it because he wasn't quite right. Today saw Dr Haile and was sent here for labs. Came to ER now because he was running fever and had chills. Denies n/v/d/abd pain, cough, congestion, chest pain or any other symptoms. . Historical: - Allergies: 17:05 No Known Allergies; jd3 - Home Meds: 17:05 aspirin 81 mg Oral chew [Active]; Protonix Oral [Active]; jd3 - PMHx: 17:05 Diabetes - NIDDM; High Cholesterol; stomach ulcer; jd3 - PSHx: 17:05 open heart; pacemaker; left rotator cuff; back; left wrist; jd3 - Immunization history:: Adult Immunizations up to date. - Social history:: Smoking status: Patient denies any tobacco usage or history of. ROS: 18:59 Cardiovascular: Negative for chest pain, palpitations, and edema, Respiratory: Negative kb for shortness of breath, cough, wheezing, and pleuritic chest pain, Abdomen/GI: Negative for abdominal pain, nausea, vomiting, diarrhea, and constipation, Back: Negative for injury and pain, MS/Extremity: Negative for injury and deformity, Skin: Negative for injury, rash, and discoloration, Neuro: Negative for headache, weakness, numbness, tingling, and seizure. 18:59 Constitutional: Positive for chills, fever, Negative for body aches, fatigue, malaise, poor PO intake, weight loss. 18:59 Neuro: Positive for altered mental status. Exam: 19:00 Constitutional: This is a well developed, well nourished patient who is awake, alert, kb and in no acute distress. Head/Face: Normocephalic, atraumatic. Chest/axilla: Normal chest wall appearance and motion. Nontender with no deformity. No lesions are appreciated. Cardiovascular: Regular rate and rhythm with a normal S1 and S2. No gallops, murmurs, or rubs. Normal PMI, no JVD. No pulse deficits. Respiratory: Lungs have equal breath sounds bilaterally, clear to auscultation and percussion. No rales, rhonchi or wheezes noted. No increased work of breathing, no retractions or nasal flaring. Abdomen/GI: Soft, non-tender, with normal bowel sounds. No distension or tympany. No guarding or rebound. No evidence of tenderness throughout. Skin: Warm, dry with normal turgor. Normal color with no rashes, no lesions, and no evidence of cellulitis. MS/ Extremity: Pulses equal, no cyanosis. Neurovascular intact. Full, normal range of motion. Neuro: Awake and alert, GCS 15, oriented to person, place, time, and situation. Cranial nerves II-XII grossly intact. Motor strength 5/5 in all extremities. Sensory grossly intact. Cerebellar exam normal. Normal gait. Vital Signs: 17:05 BP 96 / 64; Pulse 105; Resp 17 S; Temp 102.1(O); Pulse Ox 100% on R/A; Weight 103.42 kg jd3 (R); Height 5 ft. 9 in. (175.26 cm) (R); Pain 0/10; 17:50 Pulse 95; Resp 18; Pulse Ox 100% ; sv 19:20 BP 116 / 56 RA Supine (man/); Pulse 93; Resp 18; Temp 99.4(O); Pulse Ox 100% on R/A; jb4 17:05 Body Mass Index 33.67 (103.42 kg, 175.26 cm) jd3 MDM: 17:13 Patient medically screened. kb 18:57 Data reviewed: vital signs, nurses notes. Data interpreted: Pulse oximetry: on room air kb is 100 %. Interpretation: normal. Counseling: I had a detailed discussion with the patient and/or guardian regarding: the historical points, exam findings, and any diagnostic results supporting the discharge/admit diagnosis, lab results, the need for outpatient follow up, a family practitioner, to return to the emergency department if symptoms worsen or persist or if there are any questions or concerns that arise at home. ED course: Pt states he feels good and wants to go home. in agreement. Educated on labs and need for antibiotics for UTI (labs done today as outpatient, culture pending). Pt is awake, alert and oriented x4. Has follow up appt with Dr Leija on Monday. Will return for worsening symptoms or any other concerns.. 19:10 Data reviewed: I have discussed the patient's presentation/case with the attending Emergency Department Physician;. 11/07 17:16 Order name: CPK; Complete Time: 18:16 kb 11/07 17:16 Order name: Basic Metabolic Panel; Complete Time: 18:16 kb 11/07 17:16 Order name: Blood Culture Adult (2) 11/07 17:16 Order name: CBC with Diff; Complete Time: 18:04 kb 11/07 17:16 Order name: Lactate; Complete Time: 18:09 kb 11/07 17:16 Order name: Procalcitonin; Complete Time: 18:47 kb 11/07 17:16 Order name: Protime (+inr); Complete Time: 18:04 kb 11/07 17:16 Order name: Ptt, Activated; Complete Time: 18:04 kb 11/07 17:16 Order name: Troponin (emerg Dept Use Only); Complete Time: 18:16 kb 11/07 17:16 Order name: Chest Single View XRAY; Complete Time: 18:06 kb 11/07 17:16 Order name: Accucheck 11/07 17:16 Order name: Cardiac monitoring 11/07 17:16 Order name: IV Saline Lock - Large Bore; Complete Time: 17:50 kb 11/07 17:16 Order name: Labs collected and sent; Complete Time: 17:50 kb 11/07 17:16 Order name: O2 Per Protocol; Complete Time: 17:50 kb 11/07 17:16 Order name: O2 Sat Monitoring; Complete Time: 17:50 kb 11/07 18:47 Order name: Vital Signs; Complete Time: 19:30 kb Administered Medications: 17:50 Drug: Rocephin 1 grams Route: IV; Rate: calculated rate; Site: right wrist; sv 17:52 Follow up: Response: No adverse reaction; IV Status: Completed infusion; IV Intake: 10mlsv 17:50 Drug: Tylenol 1000 mg Route: PO; sv 19:05 Follow up: Response: No adverse reaction; Temperature is decreased jb4 18:10 CANCELLED (Physician Discretion): NS 0.9% (30 ml/kg) 30 ml/kg IV at bolus once; Sepsis Protocol 18:15 Drug: NS 0.9% 1000 ml Route: IV; Rate: 1000 ml; Site: right wrist; sv 19:05 Follow up: Response: No adverse reaction; IV Status: Completed infusion; IV Intake: jb4 1000ml Disposition: 11/08/19 19:29 Discharged to Home. Impression: Urinary tract infection, site not specified. - Condition is Stable. - Discharge Instructions: Urinary Tract Infection, Adult, Zlyj-mu-Xqig. - Prescriptions for Cipro 500 mg Oral Tablet - take 1 tablet by ORAL route every 12 hours for 10 days; 20 tablet. - Medication Reconciliation Form, Thank You Letter, Antibiotic Education, Prescription Opioid Use form. - Follow up: Emergency Department; When: As needed; Reason: Worsening of condition. Follow up: Private Physician; When: 2 - 3 days; Reason: Recheck today's complaints, Continuance of care, Re-evaluation by your physician. Addendum: 11/10/2019 16:44 Addendum: Urine C\T\S resulted today. Bacteria sensitive to Cipro. Called and spoke with merry Mr Hui to let him know. He reports he is getting better. . Signatures: Dispatcher [employer] EDEmelyn Lou, BODY ARTIST-C BODY ARTIST-Ckb Yessenia Belle, RN RN Cristi Moralez, RN RN jb4 Tiburcio Castorena RN RN jd3 Corrections: (The following items were deleted from the chart) 11/07 18:10 17:16 NS 0.9% (30 ml/kg) 30 ml/kg IV at bolus once; Sepsis Protocol ordered. kb kb 19:37 17:16 EKG - Nurse/Tech ordered. kb jb4 19:46 19:29 11/08/2019 19:29 Discharged to Home. Impression: Urinary tract infection, site jb4 not specified. Condition is Stable. Discharge Instructions: Urinary Tract Infection, Adult, Xehi-zp-Zbqo. Prescriptions for Cipro 500 mg Oral Tablet - take 1 tablet by ORAL route every 12 hours for 10 days; 20 tablet. and Forms are Medication Reconciliation Form, Thank You Letter, Antibiotic Education, Prescription Opioid Use. Follow up: Emergency Department; When: As needed; Reason: Worsening of condition. Follow up: Private Physician; When: 2 - 3 days; Reason: Recheck today's complaints, Continuance of care, Re-evaluation by your physician. kb
[2019-11-08 20:01] VITALS: O2SAT 100
[2019-11-08 20:03] VITALS: BP 116/56; TEMP 99.4
== END 2019-11-08 19:46 | disposition home or self-care (01) ==
LOC: ER 16:45
DX: N39.0 Urinary tract infection, site not specified (principal); E11.9 Type 2 diabetes mellitus without complications; E78.00 Pure hypercholesterolemia, unspecified; Z79.82 Long term (current) use of aspirin; Z95.0 Presence of cardiac pacemaker
CPT/HCPCS: 96361; 87040 ×2; 85025; 80048; 36415; 82550; 87205 ×4; 85610; 83605; 85730; 87077 ×2; 87186 ×2; 84484; 84145; 71045; 96374; 99284; J0696; J7030; 81003; 81015; 82040; 82306; 82570; 83970; 84100; 84156; 84550; 87086; 87088

== ENCOUNTER 2019-11-18 14:09 | Inpatient (IN) | payer OTHER, BC ==
--- OUTSIDE RECORDS SUMMARY | 2019-11-18 14:11 | XMS REPORT | Clinical Summary ---
:1945 Author Organization [facility] Address [address] [place] [address] Care Team Providers Name Role Phone Ken Roman MD Primary Care Provider [phone] Allergies No Known Active Allergies Medications Medication Sig Dispensed Refills Start [...] Assigned at Date Recorded Not on file Last Filed Vital Signs Not on file Plan of Treatment Health Maintenance Due Date Last Done Comments DIABETIC RETINAL EYE EXAM 1945 DIABETIC FOOT EXAM 1955 URINE MICROALBUMIN 1955 SHINGLES VACCINES (#1) 1996 65+ PNEUMOCOCCAL VACCINE (1 of 1 - PPSV23) 12/23/2011 INFLUENZA VACCINE 10/29/2019 COLONOSCOPY SCREENING 12/01/2027 11/30/2017 Results Not on fileafter 11/17/2018 Insurance Payer Benefit Plan / Subscriber ID Effective Dates Phone Addre ss Type Group MEDICARE MEDICARE PART A [id number] 2011-Present HOUS [employer] [place] Medicare AND B BCBS BCBS CHOICE [id number] 1984-Present P PO PPO/FEDERAL EMPL PPO Advance Directives For more information, please contact: [phone] Type Date 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
--- OUTSIDE RECORDS SUMMARY | 2019-11-18 14:11 | XMS REPORT | Clinical Summary ---
:1945 Author Organization [facility] Address [address] [place] [address] Care Team Providers Name Role Phone [place] [...] Health Maintenance Due Date Last Done Comments COLON CANCER SCREENING COLONOSCOPY 1945 PNEUMOCOCCAL 65+ LOW/MEDIUM RISK (1 of 2 - PCV13) 12/23/2011 MEDICARE ANNUAL WELLNESS (YEAR 2 or FIRST YEAR if no 11/28/2012 IPPE) INFLUENZA VACCINE (#1) 2019 Implants Implanted Type [place] Attendant Device Shelf Model / Identifier Expiration Serial / Date Lot Lead Attain Ability Str 78cm 4396-78 - [id number] Cardiovascu lar Left: [employer]:NASH 09/26/2018 [id number] / Implanted: Qty: 1 on 07/21/2017 by Saud Robles MD Heart D RHY:DISEASE [id number] / MGT N/A Ld Endocardial Df4 Act 55 6935m-55 - [id number] Defibrillators Left: [employer]:CAR 05/20/2019 [id number] / Implanted: Qty: 1 on 07/21/2017 by Saud Robles MD Heart D RHY:DISEASE [id number] / MGT N/A Stent Synergy Otw [id number] - [id number] IMPLANTS Left: [place] [id number] 06/04/2020 [id number] / Implanted: Qty: 1 on 10/15/2018 by Collin Salas MD Coron ary SCI:INTERV / CARDIOLOGY [id number] Contractor-D Surescan Left: [employer]:CAR 10/24/2018 [id number] / Implanted: Qty: 1 on 07/21/2017 by Saud Robles MD Ch est D RHY:PACING [id number] / SYS N/A Results Not on fileafter 11/17/2018 Insurance Payer Benefit Plan / Subscriber ID Type Phone Address Group MEDICARE MEDICARE A B xxxxxxxxxxx Medicare BLUE CROSS/BLUE BCBS FED xxxxxxxxx PPO [phone] [address] [place] [address] Advance Directives For more information, please contact:[address] [phone] Code Status Date Activated Date Inactivated Comments [...]
--- OUTSIDE RECORDS SUMMARY | 2019-11-18 14:18 | XMS REPORT | Continuity of Care Document ---
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/2012 [facility] Diabetes Resolved Problem 11/17/2012 [facility] dm Resolved Problem 11/17/2012 [facility] Fracture Active Problem 11/17/2012 [facility] Hypertension Resolved Problem 11/17/2012 [facility] Pain Active Problem 11/17/2012 [facility] Coronary bypass Resolved Problem 10/09/2019 surgery(Confirmed) [facility] Diabetes mellitus Resolved Problem 10/09/2019 H (disorder) [facility] dm (qualifier Resolved Problem 10/09/2019 value) [facility] Essential Resolved Problem 10/09/2019 hypertension [place] (disorder) Pain (finding) Active Problem 10/09/2019 [facility] ANEMIA IN CHRONIC Active Fl morial KIDNEY DISEASE Gabriela nn GASTROINTESTINAL Active Mem orial HEMORRHAGE, Aric UNSPECIFIED NON-ST ELEVATION Active Mem orial (NSTEMI) MYOCARDIAL Aric INF ACUTE KIDNEY Active Memoria l FAILURE, Aric UNSPECIFIED ACUTE RESPIRATORY Active [facility] FX FIBULA Active [facility] Medications Medication Details Route Status Patient Ordering Order Source Instructions Provider Date bumetanide 2 mg 2 mg = 1 tab, Active oral tablet PO, Q8H, Hold [address] [place] for systolic blood pressure less than 100 or heart rate less than 60, # 30 tab, 0 Refill(s), [id number], 175.26, cm, 10/04/19 20:03:00 CDT, Height, 123, kg, 10/04/19 20:03:00 CDT, Weight isosorbide 60 mg = 1 Active mononitrate 60 mg tab, PO, QAM, 2019 [facility] oral tablet, Hold for extended release systolic blood pressure less than 100 or heart rate less than 60, # 90 tab, 1 Refill(s), [id number], 175.26, cm, 10/04/19 20:03:00 CDT, Height, 123, kg, 10/04/19 20:03:00 CDT, Weight Tylenol Notes: Do not Inactive exceed 4 2019 [facility] gm/day. (Same as: Tylenol) albumin human 25% Notes: LOT#: Inactive intravenous 2020 [place] solution Mfg: WASTE: F/P - Red; E -Red (Same as: Albuminar) "blood product derivative" Potassium Notes: (Same Inactive Chloride as: K-Dur ) 2019 [facility] "Do Not Crush" Give with food and full glass of water For patients unable to swallow tablet, dissolve in one half glass of water. Allow about 2 minutes for the tablets to disintegrate. Stir before giving to prepare slurry and administer. Please exclude Patient&#[id number] ;s with feeding tube less than 14 Polish (Dobhoff, J-tube etc) and pediatric and patients. metolazone Notes: (Same No Longer as: Active 2019 [facility] Zaroxolyn) Vitamin D3 1999 Notes: Same No Longer intl units oral as : Vitamin Active 2019 [place] tablet D3 Fenofibrate 135 mg, 1 No Longer cap, Route: Active 2019 [facility] PO, Drug form: CAP, Daily, Dosing Weight 123, kg, Start date: 10/06/19 9:00:00 CDT, Duration: 30 day, Stop date: 11/04/19 9:00:00 CDT fenofibrate Notes: (Same No Longer as: Tricor) Active 2019 [facility] Aspirin Notes: Do not No Longer crush or Active 2019 [facility] chew. (Same As: Ecotrin) isosorbide Notes: (Same No Longer mononitrate as:Imdur) "Do Active 2019 [place] extended release Not Crush" Take on empty stomach/ full glass of water. Do not crush Metolazone 5 MG Notes: (Same Inactive Oral Tablet as: 2019 [facility] Zaroxolyn) Bumex Notes: (Same No Longer As: Bumex) Active 2019 [facility] Bumex 2 mg, Route: Inactive IV, Q8H, 2019 [facility] Dosing Weight 123, kg, Priority: NOW, Start [...] gm, Route: Inactive intravenous IVPB, ONCE, 2019 [facility] solution Dosing Weight 123, kg, Start date: 10/05/19 21:22:00 CDT, Stop date: 10/05/19 21:22:00 CDT, Indication: Non-hemorrhag ic shock Morphine Notes: (Same No Longer as:MORPhine Active 2019 [facility] Sulfate) Dilaudid Notes: Same No Longer as: Dilaudid Active 2019 [facility] atorvastatin Notes: (Same No Longer As: Lipitor) Active 2019 [facility] Jones packet Notes: (Same No Longer as: Jones Active 2019 [facility] Prentiss) Bumex Notes: (Same Inactive As: Bumex) 2019 [facility] Fluticasone Notes: (Same No Longer propionate 0.05 as: Flonase) Active 2019 [place] MG/ACTUAT Metered Dose Nasal [place] [Flonase] Protonix Notes: For IV No Longer push Active 2019 [facility] reconstitute with 10 ml 0.9% sodium chloride [...] 4 mg, Route: Inactive IVP, ONCE, 2019 [facility] Dosing Weight 123, kg, Start date: 10/05/19 10:08:00 CDT, Stop date: 10/05/19 10:08:00 CDT Nitroglycerin 0.3 Notes: (Same No Longer MG Sublingual as:Nitroquick Active 2019 [facility] Tablet , Nitrostat) "Do Not Crush" [...] 1 Active oral capsule cap, PO, 2019 [facility] Bedtime, 0 Refill(s) atorvastatin 20 mg, PO, Active Bedtime, 0 2019 [facility] Refill(s) pantoprazole 40 40 mg = 1 Active mg oral enteric tab, PO, BID, 2019 [place] coated tablet 0 Refill(s) Bumex 2 mg, IV, No Longer Q8H, 0 Active 2019 [facility] Refill(s) Metolazone 5 MG 5 mg = 1 tab, Active Oral Tablet PO, Daily, 2019 [facility] Hold for systolic blood pressure less than 100 or heart rate less than 60, 0 Refill(s) nafcillin 2 g IV, Q4H, 0 Active injection Refill(s) 2019 [facility] Fluticasone 1 spray, Active propionate 0.05 NASAL, BID, # 2020 [place] MG/ACTUAT Metered 16 gm, 0 Dose Nasal [place] Refill(s) [Flonase] Loratadine 10 MG 10 mg = 1 Active Oral Tablet tab, PO, 2019 [facility] [Claritin] Daily, 0 Refill(s) Bumex Notes: (Same Inactive As: Bumex) 2019 [facility] Ondansetron Notes: (Same No Longer as: Zofran) Active [address] [place] [address] MEDICATION WASTE Product Size: 4 mg Product Wasted: ___ mg Nafcillin 2 gm, Route: No Longer IVPB, Q4H, Active 2019 [facility] Dosing Weight 122.727, kg, Start date: 10/04/19 16:00:00 CDT, Duration: 30 day, Stop date: 11/03/19 12:00:00 CDT, 0 Dextrose 50% 12.5 gm, 25 No Longer Syringe (D50W) mL, Route: Active 2019 [facility] nd IVP, Drug Form: INJ, Dosing Weight [...] (Same No Longer as: Humalog) Active 2019 [facility] Roll in palms of hands gently; Do [...] Same No Longer as: BD Active 2019 [facility] Posiflush Sterile Sodium Chloride 1,000 mL, Inactive 0.9% (Bolus) IV 1000 ml/hr, 2020 [place] Infuse Over: 1 hr, Route: IV, 1,000, Drug form: INJ, ONCE, Priority: STAT, Dosing Weight 122.727 kg, Start date: 10/04/19 11:51:00 CDT, Stop date: 10/04/19 11:51:00 CDT, 0 pantoprazole Notes: For IV Inactive push 2019 [facility] reconstitute with 10 ml 0.9% sodium chloride and push over 2 minutes. (Same as: Protonix) metoprolol 25 mg 25 mg = 1 Active oral tablet, tab, PO, 2019 [facility] extended release Daily, # 30 tab, 0 Refill(s) Ticagrelor 90 MG 90 mg = 1 Active Oral Tablet tab, PO, BID, 2019 [place] [Brilinta] 0 Refill(s) omeprazole 40 mg 40 mg = 1 Active oral delayed cap, PO, 2019 [facility] release capsule Daily, # 30 cap, 0 Refill(s) Linn-3 oral 0 Refill(s) Active capsule 2019 [facility] isosorbide 30 mg = 1 Active mononitrate 30 mg tab, PO, QAM, 2019 [facility] oral tablet, # 30 tab, 0 extended release Refill(s) 12 HR ranolazine 500 mg = 1 Active 500 MG Extended tab, PO, BID, 2019 [place] Release Tablet # 60 tab, 0 Refill(s) lisinopril 10 mg 10 mg = 1 Active oral tablet tab, PO, 2019 [facility] Daily, # 30 tab, 0 Refill(s) fenofibric acid 135 mg = 1 Active 135 mg oral cap, PO, 2019 [facility] delayed release Daily, # 30 capsule cap, 0 Refill(s) pioglitazone 45 45 mg = 1 Active mg oral tablet tab, PO, 2019 [facility] Daily, # 30 tab, 0 Refill(s) rosuvastatin 10 10 mg = 1 Active mg oral tablet tab, PO, 2019 [facility] Bedtime, # 30 tab, 0 Refill(s) Aspirin 81 MG 81 mg = 1 Active Chewable Tablet tab, PO, 2019 [place] Daily, tab, 0 Refill(s) Vitamin D3 2000 2,000 Active intl units oral IntlUnit = 1 2019 [place] capsule cap, PO, Daily, # 100 cap, 3 Refill(s) Nitroglycerin 0.3 0.3 mg = 1 Active MG Sublingual tab, SL, 2019 [facility] Tablet Q5Min, PRN Chest Pain, # 100 tab, 0 Refill(s) Acetaminophen 325 1 tab, PO, Active [facility] MG / Hydrocodone Q8H, PRN 2020 [place] Bitartrate 10 MG Pain, # 60 Oral Tablet tab, 0 Refill(s) mupirocin topical 1 appl, TOP, TOP Active [facility] [place] 2% ointment BID, 22 gm, 2012 Medical Substitution Center Allowed, OINT mupirocin topical 1 appl, TOP, TOP No Longer [facility] [place] 2% ointment BID, 1 tube, Active 2012 Medical Substitution Center Allowed, OINT docusate sodium 100 mg, PO, PO Active [facility] [place] 100 mg oral BID, PRN, 20 2012 Medical capsule cap, Center Constipation, Substitution Allowed [place] 10/325 oral 1 tab, PO, PO Active [facility] [place] tablet Q4H, PRN, 24 2012 Medical tab, for Center pain, Substitution Allowed, Maintenance pregabalin 100 mg 100 mg, 1 PO Active [facility] [place] oral capsule cap, PO, Q8H, 2012 Medic al 90 cap, Center Substitution Allowed, CAP pantoprazole 40 40 mg, 1 tab, PO Active [facility] [place] mg oral enteric PO, Q12H, 60 2012 Med ical coated tablet tab, Center Substitution Allowed, ECTAB metoprolol 25 mg, 1 tab, PO Active [facility] [place] tartrate 25 mg PO, Q12H, 60 2012 Medi aysha oral tablet tab, Center Substitution Allowed, TAB Trilipix 135 mg 135 mg, 1 PO Active [facility] [place] oral delayed cap, PO, 2012 Medical release capsule Daily, 30 Center cap, Substitution Allowed, CAP bacitracin 1 appl, TOP, TOP No Longer [facility] [place] topical 500 Daily, PRN, 1 Active 2012 Medica l units/g ointment tube, Wound [place] ter Care, Substitution Allowed, OINT atorvastatin 40 40 mg, 1 tab, PO Active [facility] [place] mg oral tablet PO, Daily, 30 2012 Med ical tab, Center Substitution Allowed, TAB aspirin 325 mg 325 mg, 1 PO Active [facility] [place] tablet, enteric tab, PO, 2013 Medical coated Daily, 30 Center tab, Substitution Allowed, ECTAB AMIODarone 200 mg 200 mg, 1 PO Active [facility] [place] oral tablet tab, PO, 2012 Medical Daily, 30 Center tab, Substitution Allowed, TAB Lovaza oral 1,000 mg, 1 PO Active [facility] [place] capsule cap, PO, BID, 2012 Medical 60 cap, Center Substitution Allowed, Maintenance, CAP Bactroban 2% 1 appl, TOP No Longer [facility] [place] topical ointment Route: TOP, Active 2012 Med ical BID, Drug Center form: OINT, Cleanse left posterior thigh wound with wound cleanser. Pat dry and apply Bactroban ointment BID., Start date: 11/14/12 20:00:00, Duration: 30 day, Stop date: 12/14/12 8:00:00 Bactroban 1 appl, TOP No Longer [facility] [place] Route: TOP, Active 2012 Medical BID, Drug Center form: OINT, Cleanse left posterior thigh wound with wound cleanser. Pat dry and apply Bactroban ointment BID., Start date: 11/14/12 17:00:00, Duration: 30 day, Stop date: 12/14/12 8:00:00 NS 1,000 mL 1,000 mL, IV No Longer Inder [place] Rate: 75 Active 2012 Medical ml/hr, Infuse Center over: 13.3 hr, Route: IV, Dosing Weight 109.091 kg, Total Volume: 1,000, Start date: 11/12/12 20:08:00, Duration: 30 day, Stop date: 12/12/12 20:07:00 magnesium sulfate 2 gm, 50 mL, IVPB No Longer [place] 11/13 [place] Route: IVPB, Active 2012 Medical Drug form: Center INJ, Q2H, Dosing Weight 109.091, kg, Total dose = 4 gm, Start date: 11/12/12 20:00:00, Duration: 2 doses or times, Stop date: 11/12/12 22:00:00 nitroglycerin 0.4 0.4 mg, 1 SL No Longer [place] mg sublingual tab, Route: Active 2012 Medica l tablet SL, Drug Center form: TAB, Q5Min, Dosing Weight 109.091, kg, PRN Chest Pain, Start date: 11/08/12 9:03:00, Duration: 30 day, Stop date: 12/08/12 9:02:00 magnesium sulfate 2 gm, 50 mL, IVPB No Longer [place] 11/08 [place] Route: IVPB, Active 2012 Medical Drug form: [place] INJ, Q2H, Dosing Weight 109.091, kg, Total dose = 4 gm, Start date: 11/08/12 8:00:00, Duration: 2 doses or times, Stop date: 11/08/12 10:00:00 hydrALAZINE 5 mg, 0.25 IV No Longer [place] mL, Route: Active 2012 [facility] IV, Drug Center form: INJ, Q6H, Dosing Weight 109.091, kg, PRN Elevated BP, Start date: 11/07/12 21:12:00, Duration: 30 day, Stop date: 12/07/12 21:11:00 NS 1,000 mL 1,000 mL, IV No Longer [place] Rate: 75 Active 2012 Medical ml/hr, Infuse [place] over: 13.3 hr, Route: IV, Dosing Weight 109.091 kg, Total Volume: 1,000, Start date: 11/07/12 6:30:00, Duration: 30 day, Stop date: 12/07/12 6:29:00 lisinopril 10 mg, 1 tab, PO No Longer [place] Route: PO, Active 2012 Medical Drug form: [place] TAB, ONCE, Dosing Weight 109.091, kg, Start date: 11/05/12 17:01:00, Stop date: 11/05/12 17:01:00 midodrine 10 mg, 1 tab, PO No Longer [place] Route: PO, Active 2012 Medical Drug form: [place] TAB, TID, Dosing Weight 109.091, kg, Start date: 11/04/12 13:00:00, Duration: 30 day, Stop date: 12/04/12 8:00:00 Kayexalate 15 gm, 60 mL, PO No Longer [place] Route: PO, Active 2012 Medical Drug form: [place] SUSP, ONCE, Dosing Weight 109.091, kg, Start [...] IV No Longer Bubis [place] 0.9% (titrate) 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 mL use [...] Lovaza Lovaza PO No Longer Bubis Eddie (Fjjqk-5-Ires (Gdytg-9-Wken Active 2012 [facility] Ethyl Esters) Ethyl Esters) Cent er [...] date: 11/29/12 8:00:00 bisacodyl 10 mg, 1 LA No Longer [place] 10/30[facility] supp, Route: Active 2012 Medical LA, Drug Center form: SUPP, Daily, Dosing Weight 109, kg, PRN Constipation, Start date: 10/30/12 15:07:00, Duration: 30 day, Stop date: 11/29/12 15:06:00 Dextrose 50% 25 gm, 50 mL, IVP No Longer [place] 10/30[facility] Syringe Route: IVP, Active 2012 Medical Drug Form: [place] INJ, Dosing Weight 109, kg, PRN, PRN Blood Glucose Results, Start date: 10/30/12 10:52:00, Stop date: 11/25/12 10:51:00 magnesium citrate 150 ml, PO No Longer [place]lu [facility] Route: PO, Active 2012 Medical Drug Form: [place] LIQ, Dosing Weight 109.091, kg, ONCE, Start date: 10/29/12 11:02:00, Stop date: 10/29/12 11:02:00 Lovenox 30 mg, 0.3 SUB-Q No Longer raish 10/29[facility] mL, Route: Active 2012 Medical SUB-Q, Drug Center form: INJ, Q12H, Dosing Weight 109.091, kg, Start date: 10/29/12 9:00:00, Duration: 28 day, Stop date: 11/25/12 21:00:00 tamsulosin 0.4 mg, 1 PO No Longer Bubis 10/27[facility] cap, Route: Active 2012 Medical PO, Drug Center form: CAP, After Dinner, Dosing Weight 109, kg, Start date: 10/27/12 17:00:00, Duration: 30 day, Stop date: 11/25/12 17:00:00 Lovenox 30 mg, 0.3 SUB-Q No Longer Khraish 10/27[facility] mL, Route: Active 2012 Medical SUB-Q, Drug Center form: INJ, Q12H, Dosing Weight 109.091, kg, Start date: 10/27/12 16:00:00, Stop date: 11/26/12 9:00:00 pantoprazole 40 mg, 1 tab, PO No Longer Osuagwu [facility] Route: PO, Active 2012 Medical Drug form: [...] 50 mL, IVPB No Longer [place] 10/27 [facility] Route: IVPB, Active 2012 Medical Drug form: [place] INJ, Q2H, Dosing Weight 109, kg, Total dose = 4 gm, Start date: 10/27/12 8:00:00, Duration: 2 doses or times, Stop date: 10/27/12 10:00:00 pregabalin 100 mg, 1 PO No Longer Bubis [facility] cap, Route: Active 2012 Medical PO, Drug Center form: CAP, Q8H, Dosing Weight 109, kg, Start date: 10/27/12 8:00:00, Stop date: 11/26/12 0:00:00 Lovaza 1,000 mg, 1 PO No Longer Bubis [facility] cap, Route: Active 2012 Medical PO, Drug Center Form: CAP, Dosing Weight 109, kg, BID, Start date: 10/27/12 8:00:00, Duration: 30 day, Stop date: 11/25/12 20:00:00 multivitamin 1 tab, Route: PO No Longer Osuagwu [facility] PO, Drug Active 2012 Medical Form: TAB, [...] 5% 1 patch, TOP No Longer Bubis [facility] topical film Route: TOP, Active 2012 Medical (patch) Daily, Drug Center form: FILM, Start date: 10/27/12 8:00:00, Duration: 30 day, Stop date: 11/24/12 10:30:00 Trilipix 135 mg, 1 PO No Longer Bubis [facility] cap, Route: Active 2012 Medical PO, Drug Center form: CAP, Daily, Dosing Weight 109, kg, Start date: 10/27/12 8:00:00, Stop date: 11/25/12 8:00:00 atorvastatin 40 mg, 1 tab, PO No Longer Osuagwu [facility] Route: PO, Active 2012 Medical Drug form: Center TAB, Daily, Dosing Weight 109, kg, Start date: 10/27/12 8:00:00, Duration: 30 day, Stop date: 11/25/12 8:00:00 aspirin 81 mg, 1 tab, PO No Longer [place] Route: PO, Active 2012 Medical Drug form: Center ECTAB, Daily, Dosing Weight 109, kg, Start date: 10/27/12 8:00:00, Duration: 30 day, Stop date: 11/25/12 8:00:00 AMIODarone 200 mg, 1 PO No Longer Osuagwu [facility] tab, Route: Active 2012 Medical PO, Drug Center form: TAB, Daily, Dosing Weight 109, kg, Start date: 10/27/12 8:00:00, Duration: 30 day, Stop date: 11/25/12 8:00:00 Ultram 50 mg oral 50 mg, 1 tab, PO No Longer [place] 09/29 [facility] tablet Route: PO, Active 2012 Medical Drug form: Center TAB, Q6H, Dosing Weight 109, kg, PRN Pain Score 4-6, Start date: 10/27/12 0:09:00, Stop date: 11/26/12 0:08:00 [place] 10/325 oral 1 tab, Route: PO No Longer [place] 09/29 [facility] tablet PO, Drug Active 2012 Medical Form: TAB, Center Dosing Weight 109, kg, Q6H, PRN Pain Score 7-10, Start date: 10/27/12 0:09:00, Stop date: 11/26/12 0:08:00 bacitracin 1 appl, TOP No Longer Osuagwu [facility] topical 500 Route: TOP, Active 2012 Medical units/g ointment Daily, Drug [address] form: OINT, PRN Wound Care, Start date: 10/27/12 0:05:00, Stop date: 11/26/12 0:04:00 docusate 100 mg, 1 PO No Longer Camci[place]lu [facility] cap, Route: Active 2012 Medical PO, Drug Center form: CAP, BID, Dosing Weight 109, kg, Start date: 10/26/12 17:00:00, Duration: 30 day, Stop date: 11/25/12 9:00:00 Insulin regular 1 unit, 0.01 SUB-Q No Longer Camci[place]lu [facility] mL, Route: Active 2012 Medical SUB-Q, Drug Center form: SOLN, TID-Before Meals, Dosing Weight 109, kg, PRN Blood Glucose Results, Start date: 10/26/12 16:50:00, Duration: 30 day, Stop date: 11/25/12 16:49:00 bisacodyl 10 mg, 1 LA No Longer Camci[place]lu [facility] supp, Route: Active 2012 Medical LA, Drug Center form: SUPP, ONCE, Dosing Weight 109, kg, PRN Constipation, Start date: 10/26/12 16:50:00 Milk of Magnesia 30 mL, Route: PO No Longer Camci[place]lu 10/26 [facility] PO, Drug Active 2012 Medical Form: SUSP, [...] 40 mg, 1 tab, PO On Hold [facility] [place] mg oral enteric PO, Q12H, 60 2012 Med ical coated tablet tab, Center Substitution Allowed, ECTAB AMIODarone 200 mg, 1 PO No Longer [place] tab, Route: Active 2012 Medical PO, Drug Center form: TAB, Daily, Dosing Weight 109, kg, Start date: 10/26/12 9:00:00, Duration: 30 day, Stop date: 11/24/12 9:00:00 Remove - 1 patch, TOP No Longer Camci[place]lu [facility] lidocaine topical Route: TOP, Active 2012 Me dical patch Daily, Drug Center form: ERFILM, Start date: 10/26/12 9:00:00, Duration: 30 day, Stop date: 11/24/12 9:00:00 magnesium sulfate 2 gm, 50 mL, IVPB No Longer [place] 10/26 [facility] Route: IVPB, Active 2012 Medical Drug form: Center INJ, Q2H, Dosing Weight 109, kg, Total dose = 4 gm, Start date: 10/26/12 8:00:00, Duration: 2 doses or times, Stop date: 10/26/12 10:00:00 lidocaine topical 2 patch, TOP No Longer Henschel Eddie patch (5% film) Route: TOP, Active 2012 [facility] Bedtime, Drug Center form: FILM, Start date: 10/25/12 23:00:00, Duration: 30 day, Stop date: 11/24/12 21:00:00, Remove after 12 hoursRemove after 12 hours Flomax 0.4 mg, 1 PO No Longer [place]lu [facility] cap, Route: Active 2012 Medical PO, Drug Center form: CAP, After Dinner, Dosing Weight 109, kg, Start date: 10/25/12 17:00:00, Duration: 30 day, Stop date: 11/23/12 17:00:00 bacitracin 1 appl, TOP No Longer Cam[place]lu [facility] topical Route: TOP, Active 2012 Medical Q6H, [...] mg, 2 mL, IVP No Longer Pathikonda [facility] Route: IVP, Active 2012 Medical Drug form: Center INJ, ONCE, Dosing Weight 109, kg, PRN Nausea & Vomiting, Start date: 10/24/12 22:19:00 flumazenil 0.2 mg, 2 mL, IVP No Longer Pathikonda [facility] Route: IVP, Active 2012 Medical Drug form: [...] 0.5 mg, 0.25 IVP No Longer Pathikonda [facility] mL, Route: Active 2012 Medical IVP, Drug [...] naloxone 0.04 mg, IVP No Longer Pathikonda [facility] Route: IVP, Active 2012 Medical Q2MIN, Dosing Center Weight 109, kg, PRN Narcotic Reversal, Start date: 10/24/12 22:15:00, Duration: 8 doses or times, Stop date: Limited # of times ondansetron 4 mg, Route: IVP No Longer Jahairaikonda [facility] IVP, ONCE, 2012 Medical Dosing Weight Center 109, kg, PRN Nausea & Vomiting, Start date: 10/24/12 22:15:00 flumazenil 0.2 mg, IVP No Longer Pathikonda [facility] Route: IVP, 2012 Medical PRN, Dosing Center Weight 109, kg, PRN Benzodiazepin e Reversal, Initial dose, Start date: 10/24/12 22:15:00, Duration: 30 day, Stop date: 11/23/12 22:14:00 labetalol 5 mg, Route: IVP No Longer [place] IVP, Q5Min, Active 2012 Medical [...] - 1 patch, TOP No Longer Bogomolny [facility] lidocaine topical Route: TOP, Active 2012 Me [...] Remove after 12 hoursRemove after 12 hours [place] 10/325 oral 1 tab, Route: PO No Longer [place] 09/28 [facility] tablet PO, Drug Active 2012 Medical Form: [...] 100 mg, 2 PO No Longer [place] [facility] tab, Route: Active 2012 Medical PO, Drug Center form: TAB, Q6H, Dosing Weight 109, kg, Start date: 10/19/12 18:00:00, Duration: 30 day, Stop date: 11/18/12 12:00:00 cefazolin + 2 gm, Route: IVPB No Longer [place] Sodium Chloride IVPB, ABXQ8H, Active 2012 Me dical 0.9% IV 100 mL Start date: Cente r 10/19/12 17:30:00, Duration: 3 doses or times, Stop date: 10/20/12 9:30:00 [place] 10/325 oral 1 tab, Route: PO No Longer [place] 09/28 [facility] tablet PO, Drug Active 2012 Medical Form: TAB, Center Dosing Weight 109, kg, Q4H, PRN Pain, Start date: 10/19/12 17:09:00, Duration: 30 day, Stop date: 11/18/12 17:08:00 magnesium sulfate 2 gm, 50 mL, IVPB No Longer Bubis [place] Route: IVPB, Active 2012 Medical Drug form: Center INJ, Q2H, Dosing Weight 109, kg, Total Dose = 6 gm, Start date: 10/19/12 16:00:00, Duration: 2 doses or times, Stop date: 10/19/12 18:00:00, For Mg = 1 - 1.4 mg/dLFor Mg = 1 - 1.4 mg/dL ropivacaine 800 320 mL, Rate: NERVE No Longer Henschel [facility] mg + Q-Pump 1 ea 8 ml/hr, [...] mg, 2 mL, IVP No Longer Agudelo [place] Route: IVP, Active 2012 Medical Drug [...] 0.5 mg, 0.25 IVP No Longer Agudelo [facility] mL, Route: Active 2012 Medical IVP, Drug Center form: INJ, Q5Min, Dosing Weight 109, kg, PRN Pain Score 7-10, Start date: 10/19/12 12:41:00, Duration: 5 doses or times, Stop date: 10/20/12 0:00:00 fentanyl 25 microgram, IVP No Longer [place] 0.5 mL, 2012 Medical Route: IVP, [place] Drug form: INJ, Q5Min, Dosing Weight 109, kg, PRN Pain Score 4-6, Start date: 10/19/12 12:41:00, Duration: 4 doses or times, Stop date: 10/20/12 0:00:00 labetalol 5 mg, 1 mL, IVP No Longer Agudelo [facility] Route: IVP, 2012 Medical Drug form: Center INJ, Q5Min, Dosing Weight 109, kg, PRN Elevated BP, Start date: 10/19/12 12:41:00, Duration: 5 doses or times, Stop date: 10/20/12 0:00:00 magnesium sulfate 2 gm, 50 mL, IVPB No Longer Bubis [facility] Route: IVPB, 2012 Medical Drug form: Center [...] gm, 50 mL, IVPB No Longer Bubis [facility] Route: IVPB, 2012 Medical Drug form: Center INJ, Q2H, Dosing Weight 109, kg, Total Dose = 4 gm, Start date: 10/17/12 10:00:00, Duration: 2 doses or times, Stop date: 10/17/12 12:00:00, For Mg = 1.5 - 1.7 mg/dLFor Mg = 1.5 - 1.7 mg/dL Pneumovax 23 0.5 ml, IM No Longer SYSTEM dEdie Route: IM, Active 2012 Medical Drug Form: [place] INJ, Start date: 10/17/12 9:00:00, Stop date: [...] Eddie extended release Route: PO, Active 2012 [facility] aysha Drug form: [place] ERTAB, Q12H, Start date: 10/15/12 21:00:00, Duration: 30 day, Stop date: 11/14/12 9:00:00 Pneumovax 23 0.5 ml, IM No Longer SYSTEM Eddie Route: IM, Active 2012 Medical Drug Form: [place] INJ, Daily, Start date: 10/15/12 18:00:00, Duration: 1 doses or times, Stop date: 10/15/12 18:00:00 Visipaque 85 mL, Route: IVP No Longer [facility] [place] 320mg/ml IVP, Drug Active 2012 [facility], [facility], ONCALL, STAT, Start date: 10/15/12 3:31:00, Duration: 1 doses or times, Stop date: 10/16/12 0:00:00, Dose = 2.2ml/kg, Max dose = 100ml -- "To be infused by Radiology Staff ONLY"Dose = 2.2ml/kg, Max dose = 100ml -- "To be infused by Radiology Staff ONLY" [place] 10/325 oral 1 tab, Route: PO No Longer Osuagwu Eddie tablet PO, Drug Active 2012 Medical Form: TAB, Center Dosing Weight 109, kg, Q4H, PRN as needed for pain, Start date: 10/15/12 3:04:00, Duration: 30 day, Stop date: 11/14/12 3:03:00 docusate sodium 100 mg, 1 PO No Longer [facility] [place] 100 mg oral cap, Route: Active 2012 Medical capsule PO, Drug Center form: CAP, Q12H, Start date: 10/14/12 21:00:00, Duration: 30 day, Stop date: 11/13/12 9:00:00 Insulin regular 2 unit, 0.02 SUB-Q No Longer Osuagwu [facility] mL, Route: Active 2012 Medical SUB-Q, Drug Center form: SOLN, TID-Before Meals, Dosing Weight 109, kg, PRN Blood Glucose Results, Start date: 10/14/12 12:59:00, Duration: 30 day, Stop date: 11/13/12 12:58:00 Dextrose 50% 25 gm, 50 mL, IVP No Longer Osuagwu [facility] Syringe Route: IVP, Active 2012 Medical Drug Form: [place] INJ, Dosing Weight 109, kg, PRN, PRN Blood Glucose Results, Start date: 10/14/12 12:59:00, Duration: 30 day, Stop date: 11/13/12 12:58:00 glucagon 1 mg, Route: IM No Longer Osuagwu [place] IM, Drug Active 2012 Medical form: [place] PDR/INJ, PRN, Dosing Weight 109, kg, PRN Blood Glucose Results, Start date: 10/14/12 12:59:00, Duration: 30 day, Stop date: 11/13/12 12:58:00 [place] 10/325 oral 1 tab, Route: PO No Longer Osuagwu [facility] tablet PO, Drug Active [facility], kg, Q6H, Start date: 10/13/12 12:00:00, Duration: 30 day, Stop date: 11/12/12 6:00:00 lisinopril 30 mg, 3 tab, [place] Longer [place] Route: PO, Active 2012 Medical Drug form: [place] TAB, Daily, Dosing Weight 109, kg, Start date: 10/13/12 9:00:00, Stop date: 11/11/12 9:00:00 magnesium sulfate 2 gm, 50 mL, IVPB No Longer [place] Route: IVPB, Active 2012 Medical Drug form: [place] INJ, Q2H, Dosing Weight 109, kg, Start [...] 482 mL, Rate: IV No Longer [place] + Dextrose 5% in Infuse as Active 2012 Medic al Water (Titrate) directed, [place] IV 482 mL Dosing Weight 109, kg, Route: IV, Total Volume: 500 mL, Stop date: 10/12/12 20:00:00, Replace Every: 24 hr Zofran 4 mg, 2 mL, IV No Longer [employer] [place] Route: IV, Active 2012 Medical Drug form: [place] INJ, Q8H, Dosing Weight 109, kg, PRN Nausea, Start date: 10/12/12 13:38:00, Duration: 30 day, Stop date: 11/11/12 13:37:00 Neutra-Phos oral 2 pkt, Route: NG No Longer Osuagwu [place] powder NG, Drug Active 2012 Medical Form: [place] PDR/REC, Dosing Weight 109, kg, Q6H, Start date: 10/12/12 12:00:00, Duration: 30 day, Stop date: 11/11/12 6:00:00 OXYcodone 5 mg 5 mg, 1 tab, NG No Longer [facility] [place] immediate release Route: NG, Active 2012 Med ical Drug form: [facility] TAB, Q6H, Dosing Weight 109, kg, PRN Pain, Start date: 10/12/12 10:11:00, Duration: 30 day, Stop date: 11/11/12 10:10:00 sodium 15 mmol, 15 IV No Longer [place] glycerophosphate mL, Route: Active 2012 Medi aysha [...] gm, 50 mL, IVPB No Longer [place] Route: IVPB, Active 2012 Medical Drug form: [facility] INJ, ONCE, Dosing Weight 109, kg, Total dose = 2 gm, Start date: 10/12/12 5:39:00, Duration: 1 doses or times, Stop date: 10/12/12 5:39:00 metoprolol 25 mg, 1 tab, PO No Longer [place] tartrate Route: PO, Active 2012 Medical Drug form: [place] TAB, Q6H, Dosing Weight 109, kg, Start [...] gm, 50 mL, IVPB No Longer Sandi [facility] Route: IVPB, Active 2012 Medical Drug form: [facility] INJ, ABXQ8H, Dosing Weight 109, kg, Start date: 10/11/12 15:00:00, Duration: 1 day, Stop date: 10/12/12 7:00:00 Lovenox 30 mg, 0.3 SUB-Q No Longer Les [facility] mL, Route: Active 2012 Medical SUB-Q, [...] 15 mmol, 15 IVPB No Longer Holihan [facility] glycerophosphate mL, Route: Active 2012 [facility] aysha + Sodium Chloride IVPB, ONCE, Ce nter 0.9% IV 250 mL Dosing Weight 109, kg, Start date: 10/11/12 6:25:00, Duration: 1 doses or times, Stop date: 10/11/12 6:25:00, For PO4 = 2 - 2.4 mg/dL; Administer when K level > 3.9mEq/L. 3.9mEq/L. Dextrose 50% 25 gm, 50 mL, IVP No Longer Osuagwu [facility] Syringe Route: IVP, Active 2012 Medical Drug Form: [facility] INJ, Dosing Weight 109, kg, PRN, PRN Abnormal Lab Result, Start date: 10/11/12 6:08:00, Duration: 30 day, Stop date: 11/10/12 6:07:00, For FSBG For FSBG < 40mg/dL Insulin regular 15 unit, 0.15 SUB-Q No Longer Osuagwu [facility] mL, Route: Active 2012 Medical SUB-Q, Drug Center form: SOLN, PRN, Dosing Weight 109, kg, PRN Abnormal Lab Result, Start date: 10/11/12 6:08:00, Duration: 30 day, Stop date: 11/10/12 6:07:00, for FSBG > 250mg/dL 250mg/dL sodium 15 mmol, 15 IVPB No Longer Holihan [facility] glycerophosphate mL, Route: Active 2012 [facility] aysha + Sodium Chloride IVPB, ONCE, Ce nter 0.9% IV 250 mL Dosing Weight 109, kg, Start date: 10/11/12 5:31:00, Duration: 1 doses or times, Stop date: 10/11/12 5:31:00, For PO4 = 2 - 2.4 mg/dL; Administer when K level > 3.9mEq/L. 3.9mEq/L. 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 mL use with [place] blood product administratio n, Dosing Weight 109, kg, Route: IV, Total Volume: 250, Duration: 30 day, Stop date: 11/10/12 2:10:00, Replace Every: 8 hr simethicone 20 mg, 0.3 PO No Longer [place] mL, Route: Active 2012 [facility] PO, Drug Center form: DROP, Q6H, Dosing [...] mg, 2 mL, IVP No Longer [place] [facility] Route: IVP, Active 2012 Medical Drug form: [place] INJ, ONCE, Dosing Weight 109, kg, Start date: 10/10/12 22:39:00, Stop date: 10/10/12 22:39:00 Zofran 4 mg, 2 mL, IVP No Longer [place] [facility] Route: IVP, Active 2012 Medical Drug form: [place] INJ, ONCE, Dosing Weight 109, kg, Start date: 10/10/12 22:13:00, Stop date: 10/10/12 22:13:00 Protonix 40 mg, 1 tab, PO No Longer [place] Route: PO, Active 2012 Medical Drug form: [place] ECTAB, Q12H, Dosing Weight 109, kg, Start date: 10/10/12 21:00:00, Duration: 30 day, Stop date: 11/09/12 9:00:00 AMIODarone 900 mg 482 mL, Rate: IV No Longer [place] Eddie + Dextrose 5% in Infuse as Active 2012 Medic al Water (Titrate) directed, [place] IV 482 mL Dosing Weight 109, kg, Route: IV, Total Volume: 500 mL, Duration: 30 day, Stop date: 11/09/12 17:40:00, Replace Every: 24 hr AMIODarone 150 mg 100 mL, Rate: IVPB No Longer [place] [facility] + Dextrose 5% in 600 ml/hr, Active 2012 Medi aysha Water IV 100 mL Infuse over: [address] 10.3 min, Route: IVPB, Dosing Weight 109 kg, Total Volume: 103, Start date: 10/10/12 17:40:00, Duration: 1 doses or times, Stop date: 10/10/12 17:49:00 metoprolol 25 mg, 1 tab, NG [place] Longer [place] tartrate Route: NG, Active 2012 Medical Drug form: [place] TAB, Q8H, Dosing Weight 109, kg, Start date: 10/10/12 12:26:00, Duration: 30 day, Stop date: 11/09/12 8:00:00 tramadol 50 mg, 1 tab, PO No Longer [place] Route: PO, Active 2012 Medical Drug form: [place] TAB, Q6H, Dosing Weight 109, kg, Start date: 10/10/12 12:00:00, Stop date: 11/09/12 6:00:00 Dulcolax Laxative 10 mg, 1 LA No Longer [employer] [facility] supp, Route: Active 2012 Medical [place], Drug Center form: SUPP, Daily, Start date: 10/10/12 9:15:00, Duration: 30 day, Stop date: 11/09/12 9:00:00 Trilipix 135 mg, 1 PO No Longer Osuagwu [facility] cap, Route: Active 2012 Medical PO, Drug Center form: CAP, Daily, Dosing Weight 109, kg, Start date: 10/10/12 9:00:00, Stop date: 11/08/12 9:00:00 metoprolol 5 mg/5 5 mg, Route: IV No Longer Zuhair [facility] ml INJ IV, ONCE, Active 2012 Medical Dosing Weight Center 109, kg, Start date: 10/10/12 5:17:00, Stop date: 10/10/12 5:17:00 metoprolol 5 mg/5 5 mg, 5 mL, IVP No Longer [employer] [facility] ml INJ Route: IVP, Active 2012 Medical Drug form: [facility] INJ, ONCE, Dosing Weight 109, kg, Start date: 10/09/12 23:05:00, Stop date: 10/09/12 23:05:00 metoprolol 5 mg/5 5 mg, 5 mL, IV No Longer Zuhair [facility] ml INJ Route: IV, Active 2012 Medical Drug form: [facility] INJ, ONCE, Dosing Weight 109, kg, Start date: 10/09/12 22:20:00, Stop date: 10/09/12 22:20:00 atorvastatin 40 mg, 1 tab, PO No Longer Yinka [facility] Route: PO, Active 2012 Medical Drug form: [facility] TAB, Bedtime, Dosing Weight 109, kg, Start date: 10/09/12 21:00:00, Duration: 30 day, Stop date: 11/07/12 21:00:00 docusate sodium 100 mg, 10 PO No Longer [facility] 150 mg/15 mL oral mL, Route: Active 2012 Med ical liquid PO, Drug Center form: LIQ, Q12H, Dosing Weight 109, kg, Start date: 10/09/12 21:00:00, Duration: 30 day, Stop date: 11/08/12 9:00:00 metoprolol 5 mg/5 5 mg, 5 mL, IV No Longer Zuhair [facility] ml INJ Route: IV, Active 2012 Medical Drug form: [facility] INJ, ONCE, Dosing Weight 109, kg, Start date: 10/09/12 20:54:00, Stop date: 10/09/12 20:54:00 pantoprazole 40 mg, Route: IVP No Longer Sagun [facility] IVP, Drug Active 2012 Medical form: INJ, Center Before Dinner, Dosing Weight 113.636, kg, Start date: 10/09/12 16:30:00, Duration: 30 day, Stop date: 11/07/12 16:30:00 metoprolol 5 mg/5 5 mg, 5 mL, IVP No Longer Sagun [facility] ml INJ Route: IVP, Active 2012 Medical Drug form: [facility] INJ, Q8H, Dosing Weight 109, kg, Start date: 10/09/12 16:00:00, Duration: 30 day, Stop date: 11/08/12 8:00:00 heparin 5,000 unit, 1 SUB-Q No Longer Les [facility] mL, Route: Active 2012 Medical SUB-Q, Drug Center form: INJ, Q8H, Dosing Weight 109, kg, Start date: 10/09/12 16:00:00, Duration: 30 day, Stop date: 11/08/12 8:00:00 Tylenol 975 mg, 3 PO No Longer Good[facility] tab, Route: Active 2012 Medical PO, Drug Center form: TAB, Q8H, Dosing Weight 109, kg, Start date: 10/09/12 16:00:00, Duration: 30 day, Stop date: 11/08/12 8:00:00 aspirin 325 mg, 1 PO No Longer Goodenough [facility] tab, Route: Active 2012 Medical PO, Drug Center form: TAB, Daily, Dosing Weight 109, kg, Start date: 10/09/12 15:28:00, Duration: 30 day, Stop date: 11/08/12 9:00:00 bacitracin 1 appl, TOP No Longer Les [place] topical Route: TOP, Active 2012 Medical Daily, Drug Center form: OINT, PRN Wound Care, Start date: 10/09/12 14:35:00, Duration: 30 day, Stop date: 11/08/12 14:34:00 OXYcodone 5 mg 5 mg, 1 tab, PO No Longer [place] immediate release Route: PO, Active 2012 Med ical Drug form: [facility] TAB, Q6H, Dosing Weight 109, kg, PRN as needed for pain, Start date: 10/09/12 12:00:00, Stop date: 11/08/12 6:00:00 Multiple Vitamins 1 tab, PO, PO On Hold Osuagwu [facility] oral tablet Daily, 30 2012 Medical tab, Center Substitution Allowed, Maintenance, TAB pantoprazole 40 40 mg, 1 tab, PO No Longer [place] mg oral enteric PO, Daily, 30 Active 2012 Me dical coated tablet tab, Center Substitution Allowed, ECTAB vitamin E 400 800 IntlUnit, PO No Longer [facility] intl units oral 2 cap, PO, Active 2012 Medic al capsule Daily, 30 Center cap, Substitution Allowed, CAP omega-3 2,000 mg, 2 No Longer [facility] polyunsaturated cap, Active 2012 Medical fatty acids [...] mg 1,000 mg, 1 PO No Longer [facility] oral tablet tab, PO, BID, Active 2012 Medica l 30 tab, Center Substitution Allowed metoprolol 50 mg, 1 tab, [place] tartrate 50 mg PO, BID, 60 Active 2012 Medic al oral tablet tab, Center Substitution Allowed, TAB lisinopril 10 mg 10 mg, 1 tab, PO No Longer [facility] oral tablet PO, Daily, 30 Active 2012 Medica l tab, Center Substitution Allowed, TAB bisacodyl 10 mg, 1 LA No Longer [place] [facility] supp, Route: Active 2012 Medical [place], Drug Center form: SUPP, ONCE, Dosing Weight 109, kg, PRN Constipation, Start date: 10/09/12 10:50:00 docusate 100 mg, LA No Longer [place] [facility] Route: LA, Active 2012 Medical Daily, Dosing Center Weight 109, kg, Start date: 10/09/12 9:00:00, Duration: 30 day, Stop date: 11/07/12 9:00:00 bisacodyl 10 mg, 2 tab, [place] Longer [employer] [place] Route: [place], Active 2012 Medical Drug form: [place] ECTAB, Daily, Dosing Weight 113.636, kg, Start date: 10/09/12 9:00:00, Duration: 30 day, Stop date: 11/07/12 9:00:00 pneumococcal 0.5 ml, IM No Longer SYSTEM [facility] 23-valent vaccine Route: IM, Active 2012 Med ical Drug Form: [place] INJ, Daily, Start date: 10/09/12 9:00:00, Duration: 1 doses or times, Stop date: 10/09/12 9:00:00 Dextrose 50% 25 gm, 50 mL, IVP No Longer [place] [facility] Syringe Route: IVP, Active 2012 Medical Drug Form: [place] INJ, Dosing Weight 109, kg, PRN, PRN Abnormal Lab Result, Start date: 10/09/12 5:22:00, Duration: 30 day, Stop date: 11/08/12 5:21:00, For FSBG For FSBG < 40mg/dL Insulin regular 6 unit, 0.06 SUB-Q No Longer [place] 10/09/ [facility] mL, Route: Active 2012 Medical SUB-Q, Drug Center form: SOLN, PRN, Dosing Weight 109, kg, PRN Abnormal Lab Result, Start date: 10/09/12 5:22:00, Duration: 30 day, Stop date: 11/08/12 5:21:00, For FSBG 141mg/dL - 160mg/dLFor FSBG 141mg/dL - 160mg/dL Lovenox 30 mg, 0.3 SUB-Q No Longer [facility] mL, Route: Active 2012 Medical SUB-Q, Drug Center form: INJ, [id number], Dosing Weight 109, kg, Start date: 10/09/12 4:00:00, Duration: 30 day, Stop date: 11/07/12 16:00:00 docusate 100 mg, 10 [place] No Long[place] mL, Route: Active 2012 Medical NG, Drug Center form: LIQ, Q12H, Dosing Weight 113.636, kg, Start date: 10/08/12 21:00:00, Stop date: 11/07/12 9:00:00 magnesium sulfate 2 gm, Route: IVPB No Longer [facility] IVPB, Drug Active 2012 Medical form: [place], Center ONCE, Dosing Weight 109, kg, Start date: 10/08/12 18:44:00, Duration: 1 doses or times, Stop date: 10/08/12 18:44:00, For Mg = 1.8 - 2 mg/dLFor Mg = 1.8 - 2 mg/dL magnesium sulfate 2 gm, 50 mL, IVPB No Longer [employer] [facility] Route: IVPB, Active 2012 Medical Drug form: [...] 20 ml, Route: MISC No Longer [place] [id number] MISC, Drug Active 2012 Medical Form: SOLN, [place] Dosing Weight 113.636, kg, ONCE, Start date: 10/08/12 16:40:00, Stop date: 10/08/12 16:40:00 Saline Flush 0.9% 5 ml, Route: IVP No Longer [employer] [facility] IVP, Drug Active 2012 Medical Form: INJ, [place] Dosing Weight 113.636, kg, PRN, PRN Line Flush, Start date: 10/08/12 16:01:00, Duration: 30 day, Stop date: 11/07/12 16:00:00 midazolam 50 mg IV, Start IV No Longer [place] date: Active 2012 [facility] 10/08/12 [place] 15:59:00, Duration: 30, 50 ml, 113.636 Sublimaze 1,000 IV, Start IV No Longer [place] microgram date: Active 2012 [facility] 10/08/12 [place] 15:58:00, Duration: 30, 20 ml, 113.636 FENTanyl 1000 mcg 1,000 IV No Longer [employer] [place] in 20 mL microgram, 20 Active 2012 Medical (titrate) IV mL, Rate: Center 1,000 microgram Titrate as directed, Dosing Weight 113.636, kg, Route: IV, Total Volume: 20 ml, Duration: 30 day, Stop date: 11/07/12 15:55:00, Replace Every: 24 hr Versed 50 mg in 50 mg, 50 mL, IV No Longer [employer] [facility] NS 50 ml Rate: Titrate Active 2012 Medical (titrate) IV 50 as directed, [address] mg Dosing Weight 113.636, kg, Route: IV, Total Volume: 50 ml, Duration: 30 day, Stop date: 11/07/12 15:54:00, Replace Every: 24 hr FENTanyl 1000 mcg 1,000 IV No Longer [employer] [place] in 20 mL microgram, 20 Active 2012 Medical (titrate) IV mL, Rate: Center 1,000 microgram Titrate as directed, Dosing Weight 113.636, kg, Route: IV, Total Volume: 20 ml, Duration: 30 day, Stop date: 11/07/12 15:38:00, Replace Every: 24 hr Versed 50 mg in 50 mg, 50 mL, IV No Longer [employer] [facility] NS 50 ml Rate: Titrate Active 2012 Medical (titrate) IV 50 as directed, [address] mg Dosing Weight 113.636, kg, Route: IV, Total Volume: 50 ml, Duration: 30 day, Stop date: 11/07/12 15:38:00, Replace Every: 24 hr Omnipaque 225 mL, IVP No Longer Luigi [facility] 350mg/ml Route: IVP, Active 2012 Medical Drug Form: [facility], Dosing Weight 113.636, kg, ONCALL, STAT, Start date: 10/08/12 14:24:00, Duration: 1 doses or times, Dose = 2.2ml/kg, Max dose = 150ml -- "To be infused by Radiology Staff ONLY"Dose = 2.2ml/kg, Max dose = 150ml -- "To be infused by Radiology Staff ONLY" fentanyl Route: IV, IV No Longer Kozar [facility] ONCE, Dosing Active 2012 Medical Weight Center 113.636, kg, Start date: 10/08/12 11:40:00, Stop date: 10/08/12 11:40:00 Versed 3 mg, Route: IVP No Longer Kozar [facility] IVP, ONCE, Active 2012 Medical Dosing Weight Center 113.636, kg, Priority: STAT, Start date: 10/08/12 11:40:00, Stop date: 10/08/12 11:40:00 Versed 50 mg in 50 mg, 50 mL, IV No Longer [employer] [facility] NS 50 ml Rate: Titrate Active 2012 Medical (titrate) IV 50 as directed, [address] mg Dosing Weight 113.636, kg, Route: IV, Total Volume: 50 ml, Duration: 30 day, Stop date: 11/07/12 11:37:00, Replace Every: 24 hr FENTanyl 1000 mcg 1,000 IV No Longer [employer] [facility] in 20 mL microgram, 20 Active 2012 [...] 5 ml, Route: IVP No Longer Kozar [facility] IVP, Drug Active 2012 Medical Form: INJ, Center kg, PRN, PRN Line Flush, Administer at least once every 12 hours, Start date: 10/08/12 10:22:00, Duration: 30 day, Stop date: 11/07/12 10:21:00 pneumococcal 0.5 ml, IM No Longer SYSTEM [facility] 23-valent vaccine Route: IM, Active 2011 Med ical Drug Form: Center INJ, Start date: 09/29/11 9:00:00, Stop date: 09/29/11 9:00:00 Allergies, Adverse Reactions, Alerts Substance Category Reaction Severity Reaction Status Date Comments S ource type Reported morphine drug Allergy Active [facility] Immunizations Immunization Date Site Status Last Comments Source Given Updated pneumococcal completed [facility] Armen DS[facility]ZA [facility] 23-valent vaccine 3 deltoid pneumococcal Not Given Homar Rosa nohemi 23-valent vaccine 2 [facility] Results Order Name Results Value Reference Date Interpretation Comments Ariela rce Range CHEM PANEL Glucose Lvl 132 70 - 99 08/10 MH /2020 [facility] CHEM PANEL BUN 115 7 - 22 08/10 MH /2020 [facility] CHEM PANEL Creatinine 3.14 0.50 - 08/10 MH Lvl 1.40 /2020 [facility] CHEM PANEL Sodium Lvl 133 135 - 145 08/10 MH /2019 [facility] CHEM PANEL Potassium 3.4 3.5 - 5.1 08/10 MH Lvl /2020 [facility] CHEM PANEL Chloride Lvl 94 95 - 109 08/10 MH /2020 [facility] CHEM PANEL CO2 27 24 - 32 08/10 MH /2020 [facility] CHEM PANEL Calcium Lvl 8.5 8.5 - 10.5 08/10 MH /2019 [facility] CHEM PANEL AGAP 15.4 10.0 - 08/10 MH 20.0 /2019 [facility] CHEM PANEL eGFR 19 08/10 Result MH Comment: [facility] eGFR is calculated using the CKD-EPI formula. [...] 72.8 45.0 - 08/10 MH 75.0 /2020 [facility] HEMATOLOGY Lymphocytes 13.0 20.0 - 08/10 MH 40.0 /2020 [facility] HEMATOLOGY Monocytes 9.4 2.0 - 12.0 08/10 MH /2020 [facility] HEMATOLOGY Eosinophils 3.6 0.0 - 4.0 08/10 MH /2020 [facility] HEMATOLOGY Basophils 1.2 0.0 - 1.0 08/10 MH /2020 [facility] HEMATOLOGY Neutrophils 6.0 1.5 - 8.1 08/10 MH # /2020 [facility] HEMATOLOGY Lymphocytes 1.1 1.0 - 5.5 08/10 MH # /2020 [facility] HEMATOLOGY Monocytes # 0.8 0.0 - 0.8 08/10 MH /2020 [facility] HEMATOLOGY Eosinophils 0.3 0.0 - 0.5 08/10 MH # /2020 [facility] HEMATOLOGY Basophils # 0.1 0.0 - 0.2 08/10 MH /2020 [facility] HEMATOLOGY WBC 8.3 3.7 - 10.4 08/10 MH /2020 [facility] HEMATOLOGY RBC 2.74 4.70 - 08/10 MH 6.10 /2020 [facility] HEMATOLOGY Hgb 8.5 14.0 - 08/10 MH 18.0 /2019 [facility] HEMATOLOGY Hct 24.7 42.0 - 08/10 MH 54.0 /2019 [facility] HEMATOLOGY MCV 90.2 80.0 - 08/10 MH 94.0 /2019 [facility] HEMATOLOGY MCH 31.0 27.0 - 08/10 MH 31.0 [facility]EMAT[facility] MCHC 34.3 32.0 - 08/10 MH 36.0 [facility]EMAT[facility] RDW 16.3 11.5 - 08/10 MH 14.5 /2019 [facility] HEMATOLOGY Platelet 275 133 - 450 08/10 MH /2019 [facility] HEMATOLOGY MPV 7.5 7.4 - 10.4 08/10 MH /2019 [facility] CHEM PANEL Glucose Lvl 177 70 - 99 08/09 MH /2020 [facility] CHEM PANEL BUN 114 7 - 22 08/09 MH /2019 [facility] CHEM PANEL Creatinine 3.11 0.50 - 08/09 MH Lvl 1.40 [facility] CHEM PANEL Sodium Lvl 133 135 - 145 08/09 MH /2020 [facility] CHEM PANEL Potassium 3.4 3.5 - 5.1 08/09 MH Lvl /2020 [facility] CHEM PANEL Chloride Lvl 98 95 - 109 08/09 MH /2020 [facility] CHEM PANEL CO2 28 24 - 32 08/09 MH /2020 [facility] CHEM PANEL AGAP 10.4 10.0 - 08/09 MH 20.0 /2019 [facility] CHEM PANEL Calcium Lvl 8.5 8.5 - 10.5 08/09 MH /2020 [facility] CHEM PANEL B/C Ratio 37 6 - 25 08/09 MH /2019 [facility] CHEM PANEL Total 5.9 6.4 - 8.4 08/09 MH Protein /2020 [facility] CHEM PANEL Albumin Lvl 1.5 3.5 - 5.0 08/ MH [facility] CHEM PANEL Globulin 4.4 2.7 - 4.2 / [facility] CHEM PANEL A/G Ratio 0.3 0.7 - 1.6 / MH [facility] CHEM PANEL ALT 15 0 - 65 08/ MH /2019 [facility] CHEM PANEL AST 24 0 - 37 08/ [facility] CHEM PANEL Alk Phos <10 39 - 136 / [facility] CHEM PANEL Bili Total 2.1 0.2 - 1.3 10/05 [facility] CHEM PANEL eGFR 19 10/05 Result Comment: [facility] eGFR is calculated using the CKD-EPI formula. [...] 1.8 - 2.4 / MH Lvl /2019 [facility] CHEM PANEL Phosphorus 4.1 2.5 - 4.5 10/05 [facility] HEMATOLOGY WBC 10.5 3.7 - 10.4 / [facility] HEMAT[facility] RBC 2.97 4.70 - 08/ MH 6.10 [facility] HEMATOLOGY Hgb 9.1 14.0 - 08/09 MH 18.0 [facility] HEMATOLOGY Hct 26.8 42.0 - 08/09 MH 54.0 2020 [facility] HEMATOLOGY MCV 90.3 80.0 - 08/09 MH 94.0 [facility] HEMATOLOG[facility] MCH 30.5 27.0 - 08/09 MH 31.0 /2020 [facility] HEMATOLOGY MCHC 33.8 32.0 - 08/09 MH 36.0 [facility] HEMAT[facility] RDW 16.3 11.5 - 08/09 MH 14.5 /2019 [facility] HEMATOLOGY Platelet 273 133 - 450 08/ [facility] HEMAT[facility] MPV 8.0 7.4 - 10.4 08/ [facility] HEMAT[facility] Segs 77.3 45.0 - 08/09 MH 75.0 [facility] HEMATOLOGY Lymphocytes 11.4 20.0 - 08/09 MH 40.0 [facility]EMAT[facility] Monocytes 8.1 2.0 - 12.0 08/ MH [facility] HEMAT[facility] Eosinophils 2.2 0.0 - 4.0 08/ [facility] HEMAT[facility] Basophils 1.0 0.0 - 1.0 / [facility] HEMAT[facility] Neutrophils 8.1 1.5 - 8.1 08/ MH # /2019 [facility] HEMATOLOGY Lymphocytes 1.2 1.0 - 5.5 10/05 MH # [facility] HEMATOLOG[facility] Monocytes # 0.8 0.0 - 0.8 08/ [facility] HEMATOLOGY Eosinophils 0.2 0.0 - 0.5 08/ MH # [facility] [facility] # 0.1 0.0 - 0.2 10/05 [facility] BLOOD BANK RBC product Product available 4 10/05 [facility] RESULTS (10/05/19 11:35 PM) /2019 Comment: Sindhu and 10/05/2019 23:37 [id number]
Blood available, notified Rachele Benson RN at 10/05/2019 23:37 by meb. HEMATOLOGY WBC 11.5 3.7 - 10.4 10/05 [facility] HEMATOLOGY RBC 2.57 4.70 - 08/ MH 6.10 [facility] HEMATOLOGY Hgb 7.8 14.0 - 08/09 MH 18.0 [facility] HEMATOLOGY Hct 23.1 42.0 - 08/09 MH 54.0 [facility] HEMATOLOGY MCV 90.2 80.0 - 08/09 MH 94.0 [facility] HEMATOLOGY MCH 30.2 27.0 - 08/09 MH 31.0 [facility] HEMATOLOGY MCHC 33.5 32.0 - 08/09 MH 36.0 [facility] HEMATOLOGY RDW 16.6 11.5 - 08/ MH 14.5 /2019 [facility] HEMATOLOGY Platelet 271 133 - 450 08/09 MH /2019 [facility] HEMATOLOGY MPV 7.8 7.4 - 10.4 08/ MH /2020 [facility] HEMATOLOGY Segs 80.2 45.0 - 08/ MH 75.0 /2019 [facility] HEMATOLOGY Lymphocytes 9.9 20.0 - 08/09 MH 40.0 /2019 [facility] HEMATOLOGY Monocytes 7.0 2.0 - 12.0 08/09 MH /2020 [facility] HEMATOLOGY Eosinophils 1.8 0.0 - 4.0 08/09 MH /2020 [facility] HEMATOLOGY Basophils 1.1 0.0 - 1.0 08/09 MH /2019 [facility] HEMATOLOGY Neutrophils 9.2 1.5 - 8.1 08/09 MH # /2019 [facility] HEMATOLOGY Lymphocytes 1.1 1.0 - 5.5 08/09 MH # /2020 [facility] HEMATOLOGY Monocytes # 0.8 0.0 - 0.8 08/09 MH /2019 [facility] HEMATOLOGY Eosinophils 0.2 0.0 - 0.5 08/09 MH # /2020 [facility] HEMATOLOGY Basophils # 0.1 0.0 - 0.2 08/09 MH /2019 [facility] BLOOD BANK RBC product Product available 10/04 Resul t RESULTS (10/05/19 2:07 PM) /2019 Comment: Aliza hidalgo 10/05/2019 14:09 [id number]
Blood available, notified Jackie Juan at 10/05/2019 14:09_ by _LL. HEMATOLOGY Hgb 7.6 14.0 - 08 MH 18.0 [facility] HEMATOLOGY Hct 22.4 42.0 - 08 MH 54.0 2020 [facility] CARDIAC CK MB <1.0 0.5 - 3.6 08 MH ENZYMES /2019 [facility] CARDIAC Total CK 18 12 - 191 10/04 ENZYMES /2019 [facility] CARDIAC Troponin-I 0.27 0.00 - 0808 ENZYMES 0.40 /2019 [facility] CARDIAC CK MB Index <5.6 0.0 - 2.5 08 ENZYMES /2019 [facility] BLOOD BANK RBC product Product available 6 10/04 Resul t RESULTS (10/05/19 7:30 AM) /2019 Comment: Aliza hidalgo 10/05/2019 07:31 [id number]
Blood available, notified Jackie Juan at 10/05/2019 07:31_ by _LL. CARDIAC Troponin-I 0.28 0.00 - 08/08 MH ENZYMES 0.40 /2019 [facility] CHEM PANEL Glucose Lvl 114 70 - 99 08/08 MH /2019 [facility] CHEM PANEL BUN 106 7 - 22 08/08 MH /2019 [facility] CHEM PANEL Creatinine 3.07 0.50 - 08/08 MH Lvl 1.40 /2019 [facility] CHEM PANEL Sodium Lvl 136 135 - 145 08/08 MH /2019 [facility] CHEM PANEL Potassium 3.5 3.5 - 5.1 08/08 MH Lvl /2019 [facility] CHEM PANEL Chloride Lvl 101 95 - 109 08/08 MH /2019 [facility] CHEM PANEL CO2 27 24 - 32 08/08 MH /2019 [facility] CHEM PANEL AGAP 11.5 10.0 - 08/08 MH 20.0 /2019 [facility] CHEM PANEL Calcium Lvl 7.9 8.5 - 10.5 08/08 MH /2019 [facility] CHEM PANEL B/C Ratio 35 6 - 25 08/08 MH /2019 [facility] CHEM PANEL Total 5.3 6.4 - 8.4 08/08 MH Protein /2019 [facility] CHEM PANEL Albumin Lvl 1.4 3.5 - 5.0 08/08 MH /2019 [facility] CHEM PANEL Globulin 3.9 2.7 - 4.2 08/08 MH /2019 [facility] CHEM PANEL A/G Ratio 0.4 0.7 - 1.6 08/08 MH /2019 [facility] CHEM PANEL ALT 17 0 - 65 08/08 MH /2019 [facility] CHEM PANEL AST 23 0 - 37 08/08 MH /2020 [facility] CHEM PANEL Alk Phos <10 39 - 136 08/08 MH /2019 [facility] CHEM PANEL Bili Total 2.4 0.2 - 1.3 08/08 MH /2019 [facility] CHEM PANEL eGFR 19 08/08 Result Comment: The [facility] eGFR is calculated using the CKD-EPI formula. [...] 1.8 - 2.4 08/08 MH Lvl /2020 [facility] HEMATOLOGY Segs 77.2 45.0 - 08/08 MH 75.0 /2020 [facility] HEMATOLOGY Lymphocytes 13.1 20.0 - 08/08 MH 40.0 /2020 [facility] HEMATOLOGY Monocytes 7.0 2.0 - 12.0 08/08 MH /2020 [facility] HEMATOLOGY Eosinophils 1.5 0.0 - 4.0 08/08 MH /2020 [facility] HEMATOLOGY Basophils 1.2 0.0 - 1.0 08/08 MH /2020 [facility] HEMATOLOGY Neutrophils 7.2 1.5 - 8.1 08/08 MH # /2020 [facility] HEMATOLOGY Lymphocytes 1.2 1.0 - 5.5 08/08 MH # /2020 [facility] HEMATOLOGY Monocytes # 0.7 0.0 - 0.8 08/08 MH /2020 [facility] HEMATOLOGY Eosinophils 0.1 0.0 - 0.5 08/08 MH # /2020 [facility] HEMATOLOGY Basophils # 0.1 0.0 - 0.2 08/08 MH /2020 [facility] HEMATOLOGY WBC 9.4 3.7 - 10.4 08/08 MH /2020 [facility] HEMATOLOGY RBC 2.07 4.70 - 08/08 MH 6.10 /2020 [facility] HEMATOLOGY MCV 92.5 80.0 - 08/08 MH 94.0 /2019 [facility] HEMATOLOGY MCH 31.4 27.0 - 08/08 MH 31.0 /2020 [facility] HEMATOLOGY MCHC 34.0 32.0 - 08/08 MH 36.0 /2020 [facility] HEMATOLOGY RDW 16.2 11.5 - 08/08 MH 14.5 /2020 [facility] HEMATOLOGY Platelet 262 133 - 450 08/08 MH /2019 [facility] HEMATOLOGY MPV 8.0 7.4 - 10.4 08/08 MH /2020 [facility] IMMUNOLOGY Coronavirus Not Detected Not 10/04 (COVID-19) (10/05/19 12:45 AM) Detected /2019 [place] [facility] CARDIAC Troponin-I 0.31 0.00 - 10/04 ENZYMES 0.40 [facility] CARDIAC BNP 738 <=100 10/04 ENZYMES pg/mL /2019 [facility] URINE AND UA Color Yellow Yellow 10/03 STOOL *NA* /2019 [facility] (10/04/19 1:39 PM) URINE AND UA Turbidity Clear Clear 10/03 STOOL (10/04/19 1:39 PM) /2019 [place] URINE AND UA Spec Grav 1.008 <=1.030 10/03 STOOL /2019 [facility] URINE AND UA pH 5.0 5.0 - 8.0 10/03 STOOL [facility] URINE AND UA Protein Negative Negative 10/03 STOOL mg/dL mg/dL /2019 [facility] URINE AND UA Glucose Negative Negative 10/03 STOOL mg/dL mg/dL [facility] URINE AND UA Ketones Negative Negative 10/03 STOOL mg/dL mg/dL /2019 [facility] URINE AND UA Bili Negative Negative 10/03 STOOL *NA* /2019 [facility] (10/04/19 1:39 PM) URINE AND UA Blood Negative Negative 10/03 STOOL (10/04/19 1:39 PM) /2019 [place] URINE AND UA Nitrite Negative Negative 10/03 STOOL (10/04/19 1:39 PM) [place] URINE AND UA Leuk Est Negative Negative 10/03 STOOL (10/04/19 1:39 PM) /2019 [place] URINE AND UA WBC 9 0 - 5 10/03 STOOL /2019 [facility] URINE AND UA RBC 1 0 - 2 10/03 STOOL [facility] URINE AND UA Mucus Few /LPF None Seen 10/03 STOOL /LPF /2019 [facility] URINE AND UA Sq Epi None Seen 10/03 STOOL [facility] URINE AND UA <=1.0 0.1 - 1.0 10/03 STOOL Urobilinogen mg/dL [facility] URINE CHEM U Creatinine 23.30 10/03 [facility] URINE CHEM U Protein 13.6 10/03 [facility] URINE CHEM U Prot/Creat 0.58 10/03 [facility] URINE CHEM U Osmolality 334 300 - 800 08/07 MH [facility] URINE CHEM U Sodium 97 08/07 MH [facility] URINE CHEM U Potassium 19.2 08/07 MH [facility] URINE CHEM U Chloride 107 08/07 MH [facility] URINE AND Occult Bld Positive Negative 10/03 STOOL Stl *ABN* /2019 [facility] (10/04/19 1:16 PM) BLOOD BANK ABO/Rh A NEG 10/03 RESULTS /2019 [facility] BLOOD BANK Antibody Negative 10/03 RESULTS Scrn (10/04/19 12:14 PM) /2019 [facility] nd CHEM PANEL Albumin Lvl 1.4 3.5 - 5.0 08/07 MH /2019 [facility] CHEM PANEL ALT 16 0 - 65 08/07 MH [facility] CHEM PANEL AST 23 0 - 37 08/07 MH [facility] CHEM PANEL B/C Ratio 32 6 - 25 08/07 MH [facility] CHEM PANEL Total 5.5 6.4 - 8.4 08/07 MH Protein [facility] CHEM PANEL Alk Phos 13 39 - 136 08/07 MH [facility] CHEM PANEL Bili Total 2.1 0.2 - 1.3 08/07 MH /2019 [facility] CHEM PANEL Globulin 4.1 2.7 - 4.2 08/07 MH /2019 [facility] CHEM PANEL A/G Ratio 0.3 0.7 - 1.6 08/07 MH /2019 [facility] CHEM PANEL Lipase Lvl 379 73 - 393 08/07 MH [facility] CHEM PANEL Glucose Lvl 188 70 - 99 08/07 MH [facility] CHEM PANEL BUN 99 7 - 22 08/07 MH [facility] CHEM PANEL Creatinine 3.14 0.50 - 08/07 MH Lvl 1.40 /2020 [facility] CHEM PANEL Sodium Lvl 134 135 - 145 08/07 MH [facility] CHEM PANEL Potassium 3.9 3.5 - 5.1 08/07 MH Lvl /2019 [facility] CHEM PANEL Chloride Lvl 99 95 - 109 08/07 MH [facility] CHEM PANEL CO2 26 24 - 32 08/07 MH [facility] CHEM PANEL Calcium Lvl 8.5 8.5 - 10.5 08/07 MH /2019 [facility] CHEM PANEL AGAP 12.9 10.0 - 08/07 MH 20.0 /2019 [facility] CHEM PANEL eGFR 19 10/03 Result Comment: The [facility] eGFR is calculated using the CKD-EPI formula. [...] 19.0 12.0 - 10/03 MH 14.7 /2019 [facility] HEMATOLOGY INR 1.58 0.85 - 08 MH 1.17 [facility] HEMATOLOGY PTT 37.2 22.9 - 10/03 MH 35.8 [facility] HEMATOLOGY WBC 4.7 3.7 - 10.4 09/09 /2019 [facility] HEMATOLOGY RBC 2.41 4.70 - 09/09 MH 6.10 [facility] HEMATOLOGY Hgb 7.9 14.0 - 09/09 MH 18.0 [facility] HEMATOLOGY Hct 24.6 42.0 - 09/09 MH 54.0 [facility] HEMATOLOGY MCV 101.8 80.0 - 09/09 MH 94.0 [facility] HEMATOLOGY MCH 32.9 27.0 - 09/09 MH 31.0 /2019 [facility] HEMATOLOGY MCHC 32.3 32.0 - 09/09 MH 36.0 [facility] HEMATOLOGY RDW 16.5 11.5 - 09/09 MH 14.5 [facility] HEMATOLOGY Platelet 285 133 - 450 09/09 /2019 [facility] HEMATOLOGY MPV 9.1 7.4 - 10.4 09/09 /2019 [facility] HEMATOLOGY Neutrophils 3.2 1.5 - 8.1 09/09 MH # /2019 [facility] HEMATOLOGY Lymphocytes 0.9 1.0 - 5.5 07/ MH # /2019 [facility] HEMATOLOGY Monocytes # 0.4 0.0 - 0.8 09/09 [facility] HEMATOLOGY Eosinophils 0.2 0.0 - 0.5 09/09 MH # /2019 [facility] HEMATOLOGY Segs 68.0 45.0 - 09/09 MH 75.0 [facility] HEMATOLOGY Bands 0.0 0.0 - 11.0 09/09 [facility] HEMATOLOGY Lymphocytes 19.0 20.0 - 09/09 MH 40.0 [facility] HEMATOLOGY Monocytes 9.0 2.0 - 12.0 09/09 [facility] HEMATOLOGY Eosinophils 4.0 0.0 - 4.0 09/09 [facility] HEMATOLOGY Atypical 0.0 <=0.0 % 09/09 Lymphs [facility] HEMATOLOGY RBC Morph Normal Normal 09/09 (09/10/19 9:15 AM) [facility] nd HEMATOLOGY Plt Morph Normal Normal 09/09 (09/10/19 9:15 AM) /2019 [facility] HEMATOLOGY Retic Auto 4.1 0.5 - 1.5 09/09 [facility] BEDSIDE Gluc POC 136 70 - 99 11/15 [place] <sup>1</sup>I [facility] nterpretive Medical TESTING Data: [place] Reportable Limit: 200 mg/dL. BEDSIDE Gluc POC Notify 11/15 NA [facility] GLUCOSE Comment 1 RN/ [facility] TESTING Center BEDSIDE Gluc POC 122 70 - 99 11/15 [place] <sup>2</sup>I [facility] GLUCOSE nterpretive Medical TESTING Data: [place] Reportable Limit: 200 mg/dL. BEDSIDE Gluc POC Notify 11/15 NA [facility] GLUCOSE Comment 1 RN/ /2012 Medical TESTING Center CHEMISTRY AGAP 12.2 10.0 - 11/15 Normal [place] . [facility] CHEMISTRY Calcium Lvl 8.8 8.5 - 10.5 11/15 [place] [facility] CHEMISTRY CO2 27 24 - 32 11/15 Normal [facility] CHEMISTRY eGFR 63 11/15 NA <sup>4</sup>R [...] Creatinine 1.2 0.5 - 1.4 11/15 Normal [facility] CHEMISTRY Chloride Lvl 103 95 - 109 11/15 Normal [facility] CHEMISTRY BUN 21 7 - 22 11/15 Normal [facility] CHEMISTRY Sodium Lvl 138 135 - 145 11/15 Normal [facility] CHEMISTRY Potassium 4.2 3.5 - 5.1 11/15 Normal [facility] CHEMISTRY Glucose Lvl 146 70 - 99 11/15 [place] <sup>7</sup>I [place] nterpretive Medical Data: Adult Center reference range values reflect the clinical guidelines
of the [place] [employer]. BEDSIDE Gluc POC Notify 11/15 NA [facility] GLUCOSE Comment 1 RN/MD /2012 Medical TESTING Center BEDSIDE Gluc POC 115 70 - 99 11/15 [place] <sup>3</sup>I [facility] GLUCOSE /2012 nterpretive Medical TESTING Data: Center Upper Reportable Limit: 200 mg/dL. CHEMISTRY AGAP 15.5 10.0 - 11/14 Normal [facility] 20.0 [facility] CHEMISTRY Calcium Lvl 8.9 8.5 - 10.5 11/14 [place] [facility] CHEMISTRY eGFR 57 11/14 NA <sup>5</sup>R [...] 137 70 - 99 11/14 [place] <sup>8</sup>I [facility] nterpretive Medical Data: Adult Center reference range values reflect the clinical guidelines
of the [place] [employer]. CHEMISTRY BUN 26 7 - 22 11/14 HI [facility] CHEMISTRY Potassium 4.5 3.5 - 5.1 11/14 Normal [facility] CHEMISTRY Creatinine 1.3 0.5 - 1.4 11/14 Normal [facility] CHEMISTRY Chloride Lvl 102 95 - 109 11/14 Normal [facility] CHEMISTRY CO2 24 24 - 32 11/14 Normal [facility] CHEMISTRY Sodium Lvl 137 135 - 145 11/14 Normal [facility] CHEMISTRY U Osmolality 251 300 - 800 11/13 LOW [facility] CHEMISTRY U Sodium 28 11/13 NA <sup>12</sup> [facility] Interpretive Medical Data: No Center established reference ranges. CHEMISTRY U Creatinine 70.4 11/13 NA <sup>11</sup> Interpretive Medical Data: No Center established reference ranges. CHEMISTRY TSH 2.310 0.360 - 11/13 Normal [facility] 3.740 /2012 [facility] CHEMISTRY Vitamin B12 799 254 - 1320 11/13 Normal [facility] CHEMISTRY Cortisol 23.0 3.0 - 23.0 11/13 Normal <sup>10</sup> [facility] Interpretive Medical Data: CORD Center BLOOD: 5 [...] CO2 20 24 - 32 11/13 LOW [facility] CHEMISTRY AGAP 19.9 10.0 - 11/13 Normal [facility] 20.0 [facility] CHEMISTRY eGFR 63 11/13 NA <sup>6</sup>R [...] Lvl 136 135 - 145 11/13 Normal [facility] CHEMISTRY Calcium Lvl 8.9 8.5 - 10.5 11/13 Normal [facility] CHEMISTRY Potassium 4.9 3.5 - 5.1 11/13 Normal [facility] CHEMISTRY Creatinine 1.2 0.5 - 1.4 11/13 Normal [facility] Center CHEMISTRY Chloride Lvl 101 95 - 109 11/13 Normal Medical Center CHEMISTRY Glucose Lvl 117 70 - 99 11/13 [place] <sup>9</sup>I [facility] nterpretive Medical Data: Adult Center reference range values reflect the clinical guidelines
of the [place] [employer]. CHEMISTRY BUN 23 7 - 22 11/13 [facility] Medical Center CHEMISTRY Magnesium 1.8 1.8 - 2.4 11/13 Normal [place] [facility] CHEMISTRY Phosphorus 4.9 2.5 - 4.5 11/13 [facility] Medical Center CHEMISTRY Osmolality 288 280 - 300 11/13 Normal Medical Center HEMATOLOGY Platelet 404 133 - 450 11/13 Normal Medical Center HEMATOLOGY RDW 14.7 11.5 - 11/13 [facility] [place] 14.5 Medical Center HEMATOLOGY MCHC 32.7 [...] Center HEMATOLOGY MCV 94.7 80.0 - 11/13 [facility] [place] 94.0 /2012 Medical Center HEMATOLOGY MCH 30.9 27.0 - 11/13 Normal [place] 31.0 /2012 Medical Center CHEMISTRY Phosphorus 5.3 2.5 - 4.5 11/12 [facility] Medical Center CHEMISTRY Magnesium 1.5 1.8 - [...] HEMATOLOGY Platelet 463 133 - 450 09 [facility] /2012 Medical Center HEMATOLOGY MCHC 33.4 32.0 - 09 Normal [place] 36.0 /2012 Medical [place] HEMATOLOGY MPV 8.3 7.4 - 10.4 09 Normal [place] /2012 Medical [place] HEMATOLOGY RDW 14.7 11.5 - 09 [facility] [place] 14.5 /2012 Medical Center HEMATOLOGY RBC 3.28 4.70 - 09 LOW [place] 6.10 Medical [place] HEMATOLOGY WBC 6.8 3.7 - 10.4 09 Normal /2012 Medical [place] HEMATOLOGY MCH 31.0 27.0 - 09 Normal [place] 31.0 /2012 Medical Center HEMATOLOGY Hct 30.5 42.0 - 09 LOW [place] 54.0 /2012 Medical Center HEMATOLOGY Hgb 10.2 14.0 - 09 [facility] [place] 18.0 Medical Center HEMATOLOGY MCV 92.8 80.0 - 09 Normal [place] 94.0 /2012 [facility] Center HEMATOLOGY Monocytes 10.1 2.0 - 12.0 09/ Normal [place] /2012 Medical [place] HEMATOLOGY Segs 50.5 45.0 - 09 Normal [place] 75.0 /2012 [facility] Center HEMATOLOGY Lymphocytes 32.2 20.0 - 09 Normal [place] 40.0 /2012 [facility] Center HEMATOLOGY Lymphocytes 2.2 1.0 - 5.5 11/04 [place] # /2012 [facility] HEMATOLOGY Basophils 0.8 0.0 - 1.0 11/04 Normal Medical [place] HEMATOLOGY Monocytes # 0.7 0.0 - 0.8 09 [place]2012 [facility] [place] HEMATOLOGY Segs-Bands # 3.4 1.5 - 8.1 09 Normal [facility] HEMATOLOGY Eosinophils 6.4 0.0 - 4.0 09 [facility] [place]2012 Medical [place] HEMATOLOGY Basophils # 0.1 0.0 - 0.2 11/04 [place] HEMATOLOGY Eosinophils 0.4 0.0 - 0.5 11/04 [place] # /2012 [facility] BLOOD BANK RBC product Product available 11/03 Normal [place] RESULTS (11/03/2012 09:30:25) /2012 [facility] BLOOD BANK Antibody Negative 11/03 Normal [facility] RESULTS Scrn (11/03/2012 09:30:00) [facility] BLOOD BANK ABO/Rh A NEG 11/03 Unknown [place] RESULTS /2012 [facility] HEMATOLOGY Eosinophils 5.9 0.0 - 4.0 11/03 [place] /2012 [facility] HEMATOLOGY Monocytes 10.8 2.0 - 12.0 11/03 Normal [place] /2012 [facility] HEMATOLOGY Lymphocytes 31.9 20.0 - 11/03 Normal [place] 40.0 /2012 [facility] HEMATOLOGY Segs-Bands # 3.2 1.5 - 8.1 11/03 Normal [place] [facility] HEMATOLOGY Lymphocytes 2.0 1.0 - 5.5 11/03 [place] # [facility] HEMATOLOGY Basophils 0.7 0.0 - 1.0 11/03 Normal [place] [facility] HEMATOLOGY Eosinophils 0.4 0.0 - 0.5 11/03 [place] # [facility] HEMATOLOGY Monocytes # 0.7 0.0 - 0.8 11/03 [place] [facility] HEMATOLOGY Segs 50.7 45.0 - 11/03 Normal [place] 75.0 [facility] HEMATOLOGY Basophils # 0.1 0.0 - 0.2 10/30 [place] [facility] HEMATOLOGY Basophils # 0.1 0.0 - 0.2 10/27 [place] [facility] BEDSIDE Gluc POC 189 70 - 99 10/27 [place] <sup>3</sup>I [facility] GLUCOSE [facility] nterpretive Medical TESTING Data: [place] Reportable Limit: 200 mg/dL. BEDSIDE Comment1 Notify 10/26 NA [facility] GLUCOSE RN/MD /2012 Medical TESTING Center BEDSIDE Gluc POC 168 70 - 99 10/26 [place] <sup>4</sup>I [facility] GLUCOSE [facility] nterpretive Medical TESTING Data: [place] Reportable Limit: 200 mg/dL. BEDSIDE Gluc POC 169 70 - 99 10/26 [place] <sup>5</sup>I [facility] GLUCOSE [facility] nterpretive Medical TESTING Data: [place] Reportable Limit: 200 mg/dL. BEDSIDE Comment1 Notify 10/26 NA [facility] GLUCOSE RN/MD /2012 Medical TESTING Center BEDSIDE Comment1 Notify 10/26 NA [facility] GLUCOSE RN/MD /2012 Medical TESTING Center CHEMISTRY [...] values reflect the clinical guidelines
of the [place] [employer]. CHEMISTRY BUN 20 7 - 22 10/26 Normal [facility] CHEMISTRY CO2 27 24 - 32 10/26 Normal [facility] CHEMISTRY Sodium Lvl 137 135 - 145 10/26 Normal [facility] CHEMISTRY Creatinine 1.1 0.5 - 1.4 10/26 Normal [facility] CHEMISTRY Chloride Lvl 98 95 - 109 10/26 Normal [facility] CHEMISTRY Potassium 4.6 3.5 - 5.1 10/26 Normal [facility] CHEMISTRY Calcium Lvl 8.2 8.5 - 10.5 10/26 LOW [facility] CHEMISTRY AGAP 16.6 10.0 - 10/26 Normal [facility] 20.0 Medical Center CHEMISTRY Phosphorus 4.6 2.5 - 4.5 10/26 [place] [facility] CHEMISTRY Magnesium 1.5 1.8 - 2.4 10/26 LOW [place] Lvl /2012 [facility] HEMATOLOGY MPV 8.1 7.4 - 10.4 10/26 Normal /2012 [facility] HEMATOLOGY Hgb 7.8 14.0 - 10/26 LOW [place] 18.0 [facility] HEMATOLOGY MCV 93.0 80.0 - 10/26 Normal [place] 94.0 /2012 [facility] HEMATOLOGY Hct 23.3 42.0 - 10/26 LOW [place] 54.0 /2012 [facility] HEMATOLOGY MCH 31.3 27.0 - 10/26 HI [place] 31.0 [facility] HEMATOLOGY MCHC 33.7 32.0 - 10/26 Normal [place] 36.0 /2012 [facility] HEMATOLOGY RDW 14.3 11.5 - 10/26 Normal [place] 14.5 [facility] HEMATOLOGY Platelet 445 133 - 450 10/26 Normal [facility] HEMATOLOGY RBC 2.50 4.70 - 10/26 LOW [place] 6.10 [facility] HEMATOLOGY WBC 5.6 3.7 - 10.4 10/26 Normal [facility] CHEMISTRY AGAP 10.6 10.0 - 10/24 Normal [place] 20.0 [facility] CHEMISTRY eGFR 79 10/24 NA <sup>7</sup>R [...] values reflect the clinical guidelines
of the [place] [employer]. CHEMISTRY BUN 16 7 - 22 10/24 Normal [facility] CHEMISTRY Sodium Lvl 137 135 - 145 10/24 Normal [facility] CHEMISTRY Creatinine 1.0 0.5 - 1.4 10/24 Normal [facility] CHEMISTRY Calcium Lvl 9.1 8.5 - 10.5 10/24 Normal a [facility] CHEMISTRY Potassium 4.6 3.5 - 5.1 10/24 Normal [facility] CHEMISTRY Chloride Lvl 101 95 - 109 10/24 Normal [facility] CHEMISTRY CO2 30 24 - 32 10/24 Normal [facility] HEMATOLOGY Basophils # 0.2 0.0 - 0.2 10/24 [place] [facility] HEMATOLOGY Eosinophils 4.3 0.0 - 4.0 10/24 [place] [facility] HEMATOLOGY Monocytes 10.4 2.0 - 12.0 10/24 Normal [facility] HEMATOLOGY Basophils 2.4 0.0 - 1.0 10/24 [place] [facility] HEMATOLOGY Segs-Bands # 4.1 1.5 - 8.1 10/24 Normal [place] [facility] HEMATOLOGY Monocytes # 0.8 0.0 - 0.8 10/24 [place] [facility] HEMATOLOGY Lymphocytes 2.0 1.0 - 5.5 10/24 [place] [facility] HEMATOLOGY Eosinophils 0.3 0.0 - 0.5 [...] THERAPY. HEMATOLOGY PT 15.5 12.0 - 10/24 [facility] [place] 14.7 /2012 [facility] HEMATOLOGY Platelet 562 133 - 450 10/24 [facility] /2012 [facility] HEMATOLOGY RDW 14.5 11.5 - 10/24 [facility] [place] 14.5 [facility] HEMATOLOGY MPV 8.1 7.4 - 10.4 10/24 Normal /2012 [facility] HEMATOLOGY RBC 2.91 4.70 - 10/24 [facility] [place] 6.10 [facility] HEMATOLOGY Hct 27.5 42.0 - 10/24 [facility] [place] 54.0 /2012 [facility] HEMATOLOGY Hgb 8.8 14.0 - 10/24 [facility] [place] 18.0 /2012 [facility] HEMATOLOGY MCV 94.4 80.0 - 10/24 [facility] [place] 94.0 /2012 [facility] HEMATOLOGY MCH 30.4 27.0 - 10/24 [facility] [place] 31.0 /2012 [facility] HEMATOLOGY MCHC 32.2 32.0 - 10/24 Normal [place] 36.0 /2012 [facility] HEMATOLOGY WBC 7.4 3.7 - 10.4 10/24 Normal /2012 [facility] BLOOD BANK ABO/Rh A NEG 10/24 Unknown [facility] RESULTS /2012 [facility] BLOOD BANK Antibody Negative 10/24 [facility] RESULTS Scrn (10/24/2012 04:30:00) /[facility] Segs 61.3 45.0 - 10/21 [facility] [place] 75.0 [facility] HEMATOLOGY Lymphocytes 22.3 20.0 - 10/21 [facility] [place] 40.0 /2012 [facility] HEMATOLOGY Monocytes 12.1 2.0 - 12.0 10/21 [facility] /2012 [facility] HEMATOLOGY Basophils # 0.1 0.0 - 0.2 10/21 [facility] [place] [facility] HEMATOLOGY Eosinophils 0.2 0.0 - 0.5 10/21 [place] # /2012 [facility] HEMATOLOGY Basophils 0.8 0.0 - 1.0 10/21 Normal /2012 [facility] HEMATOLOGY Segs-Bands # 4.2 1.5 - 8.1 10/21 Normal [place] /2012 [facility] HEMATOLOGY Lymphocytes 1.5 1.0 - 5.5 10/21 [place] # /2012 [facility] HEMATOLOGY Monocytes # 0.8 0.0 - 0.8 10/21 [place] /2012 [facility] HEMATOLOGY Eosinophils 3.5 0.0 - 4.0 10/21 [place] /2012 [facility] HEMATOLOGY MPV 8.6 7.4 - 10.4 10/21 Normal [facility] HEMATOLOGY WBC 6.9 3.7 - 10.4 10/21 Normal [facility] HEMATOLOGY MCH 30.9 27.0 - 10/21 Normal [place] 31.0 [facility] HEMATOLOGY MCV 94.1 80.0 - 10/21 [facility] [place] 94.0 [facility] HEMATOLOGY Hct 24.6 42.0 - 10/21 LOW [place] 54.0 [facility] HEMATOLOGY Hgb 8.1 14.0 - 10/21 [facility] [place] 18.0 [facility] HEMATOLOGY RBC 2.62 4.70 - 10/21 LOW [place] 6.10 [facility] HEMATOLOGY RDW 14.5 11.5 - 10/21 Normal [place] 14.5 [facility] HEMATOLOGY MCHC 32.9 32.0 - 10/21 [facility] [place] 36.0 [facility] HEMATOLOGY Platelet 549 133 - 450 10/21 [facility] CHEMISTRY eGFR 63 10/20 NA <sup>8</sup>R [...] values reflect the clinical guidelines
of the [place] [employer]. CHEMISTRY BUN 24 7 - 22 10/20 [facility] CHEMISTRY Creatinine 1.2 0.5 - 1.4 10/20 Normal [place] [facility] [facility] Sodium Lvl 138 135 - 145 08 Normal [facility] CHEMISTRY Potassium 4.7 3.5 - 5.1 10/20 Normal [place] Lvl [facility] CHEMISTRY Chloride Lvl 102 95 - 109 10/20 Normal [facility] CHEMISTRY AGAP 17.7 10.0 - 08 Normal [place] 20.0 [facility] CHEMISTRY CO2 23 24 - 32 08 LOW [facility] CHEMISTRY Calcium Lvl 8.3 8.5 - 10.5 10/20 [facility] s [facility] CHEMISTRY Magnesium 2.2 1.8 - 2.4 10/20 Normal [place] l [facility] HEMATOLOGY Segs 73.4 45.0 - 08 Normal [place] 75.0 [facility] HEMATOLOGY Lymphocytes 14.1 20.0 - 08 LOW [place] 40.0 /2012 [facility] HEMATOLOGY Eosinophils 2.6 0.0 - 4.0 10/20 [place] [facility] HEMATOLOGY Monocytes 9.3 2.0 - 12.0 10/20 Normal [facility] HEMATOLOGY Eosinophils 0.2 0.0 - 0.5 10/20 [place] # /2012 [facility] HEMATOLOGY Segs-Bands # 6.6 1.5 - 8.1 10/20 Normal [place] [facility] HEMATOLOGY Basophils 0.6 0.0 - 1.0 10/20 Normal [facility] HEMATOLOGY Basophils # 0.1 0.0 - 0.2 10/20 [place] [facility] HEMATOLOGY Monocytes # 0.8 0.0 - 0.8 08/ [place] [facility] HEMATOLOGY Lymphocytes 1.3 1.0 - 5.5 10/20 [place] # /2012 [facility] CHEMISTRY POC V Glu 141 70 - 99 10/19 [facility] [place] CHEMISTRY POC V O2 Sat 60.0 40.0 - 10/19 Normal [place] 70.0 /2012 [facility] [place] CHEMISTRY POC V pH 7.38 7.28 - 10/19 Normal [facility] 7.42 [facility] CHEMISTRY POC V PO2 32 20 - 49 10/19 Normal [facility] CHEMISTRY POC V PCO2 47 38 - 52 10/19 Normal [facility] CHEMISTRY POC V HCO3 28 22 - 26 10/19 HI [facility] CHEMISTRY POC V BE 2 -2-2 - 2 10/19 Normal [facility] CHEMISTRY POC V Source RASHAAD 10/19 NA [facility] CHEMISTRY POC V Temp 37.0 10/19 NA [facility] CHEMISTRY POC V Ion Ca 1.21 1.05 - 10/19 Normal [facility] 1.25 [facility] CHEMISTRY POC V Hct 25.0 42.0 - 10/19 LOW [place] 54.0 [facility] CHEMISTRY POC V K 4.4 3.5 - 5.1 10/19 Normal [facility] CHEMISTRY POC V Na 131 135 - 145 10/19 LOW [facility] CHEMISTRY POC V LA 0.7 0.5 - 2.2 10/19 Normal [facility] CHEMISTRY Magnesium 1.4 1.8 - 2.4 10/19 LOW [facility] Lvl [facility] CHEMISTRY Phosphorus 4.7 2.5 - 4.5 10/19 [facility] HEMATOLOGY PTT 30.8 22.9 - 10/19 [...] THERAPY. HEMATOLOGY PT 16.0 12.0 - 10/19 [facility] [place] 14.7 [facility] BLOOD BANK ABO/Rh A NEG 10/19 Unknown [place] RESULTS /2012 [facility] BLOOD BANK Antibody Negative 10/19 Normal [facility] RESULTS Scrn (10/19/2012 05:15:00) /[facility]orus 4.1 2.5 - 4.5 10/17 Normal [facility] [place] IMMUNOLOGY [place]-HIV Negative Negative 10/16 [facility] 02/28 Ab *NA* /2012 Medical (10/16/2012 04:16:09) Ce nter HEMATOLOGY PTT 37.0 22.9 - 10/16 [place] <sup>27</sup> [place] 35.8 Interpretive Medical Data: [...] THERAPY. HEMATOLOGY PT 16.4 12.0 - 10/16 [facility] [place] 14. [facility] BLOOD BANK Antibody Negative 10/15 Normal [facility] RESULTS Scrn (10/15/2012 04:55:00) [facility] ABO/Rh A NEG 10/15 Unknown [facility] RESULTS [facility] CHEMISTRY ALT 67 0 - 65 10/15 [facility] Medical Center CHEMISTRY Albumin Lvl 2.3 3.5 - 5.0 10/15 LOW [facility] CHEMISTRY Bili Total 0.9 0.2 - 1.3 10/15 Normal [facility] CHEMISTRY Bili Direct 0.3 0.0 - 0.3 10/15 Normal [facility] CHEMISTRY Alk Phos 28 39 - 136 10/15 LOW [facility] CHEMISTRY AST 58 0 - 37 10/15 [facility] CHEMISTRY Total 5.5 6.4 - 8.4 10/15 LOW [facility] Protein [facility] CHEMISTRY Bili 0.6 0.0 - 1.0 10/15 Normal [facility] Indirect /2012 [facility] CHEMISTRY Globulin 3.2 2.0 - 4.0 10/15 Normal [facility] CHEMISTRY A/G Ratio 0.7 0.7 - 1.6 10/15 Normal [facility] CHEMISTRY BNP 88 <=100 10/15 Normal <sup>18</sup> Interpretive Medical Data: Center Elevated results are in line with increasing severity of
congesti ve heart failure. Minor elevations between 100 and 300
may be seen with Myocardial Ischemia, Sodium retaining drugs,
and compensated/t reated heart failure. CHEMISTRY Bili 0.5 0.0 - 1.0 10/14 Normal Indirect [facility] CHEMISTRY Globulin 3.1 2.0 - 4.0 10/14 Normal [facility] CHEMISTRY A/G Ratio 0.7 0.7 - 1.6 10/14 Normal [facility] CHEMISTRY AST 82 0 - 37 10/14 HI [facility] CHEMISTRY Alk Phos 33 39 - 136 10/14 LOW [facility] CHEMISTRY Bili Direct 0.4 0.0 - 0.3 10/14 HI [facility] CHEMISTRY Bili Total 0.9 0.2 - 1.3 10/14 Normal [facility] CHEMISTRY Total 5.2 6.4 - 8.4 10/14 LOW Protein [facility] CHEMISTRY Albumin Lvl 2.1 3.5 - 5.0 10/14 LOW [facility] CHEMISTRY ALT 62 0 - 65 10/14 Normal [facility] CHEMISTRY BNP 115 <=100 10/14 [place] <sup>19</sup> Interpretive Medical Data: Center Elevated results are in line with increasing severity of
congesti ve heart failure. Minor elevations between 100 and 300
may be seen with Myocardial Ischemia, Sodium retaining drugs,
and compensated/t reated heart failure. CHEMISTRY Ca Norm WB 1.13 1.05 - 10/14 Normal 03.23 [facility] CHEMISTRY Ca Ion WB 1.14 1.05 - 10/14 Normal 03.23 [facility] IMMUNOLOGY CRP, High 186.0 10/13 NA <sup>28</sup> [place] Interpretive Medical Data: Low Center Risk: <1.0 mg/L
Aver age Risk: 1.0 - 3.0 mg/L
High Risk: >3.0 mg/L
Infl ammation: >10.0 mg/L IMMUNOLOGY Prealbumin 11.9 18.0 - 08 LOW [place] 45.0 [facility] [place] CHEMISTRY Ca Norm WB 1.10 1.05 - 10/12 Normal [place] 03.23 [facility] Center CHEMISTRY Ca Ion WB 1.14 1.05 - 10/12 Normal [place] 03.23 [facility] CHEMISTRY Ca Norm WB 1.09 1.05 - 10/11 Normal [place] 03.23 [facility] CHEMISTRY Ca Ion WB 1.14 1. - 10/11 Normal [place] 03.23 [facility] CHEMISTRY POC A O2 Sat 100.0 95.0 - 10/11 Normal [place] 100.0 [facility] [place] CHEMISTRY POC A BE -1 -2-2 - 2 10/11 Normal [facility] CHEMISTRY POC A Temp 37.0 10/11 NA [facility] CHEMISTRY POC A pH 7.31 7.35 - 10/11 LOW [place] 7 [facility] CHEMISTRY POC A PO2 224 80 - 100 10/11 [facility] CHEMISTRY POC A PCO2 52 35 -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
--- OUTSIDE RECORDS SUMMARY | 2019-11-18 14:26 | XMS REPORT | Continuity of Care Document ---
:1945 Author Organization [facility] t Address [address] [place] [address] Care Team Providers Name Role Phone Gavin [...] 00:00: Aric HYPOTENSIO 00 N Active 10/04/2019 [facility] ACUTE GI Diagnosis Active 2019-10-12 M emoria BLEEDING, 10-03 21:38:00 l NSTEMI, ACUTE GI 00:00: Gabriela nn ACUTE ON BLEEDING, 00 DIRECTOR DIETETICS DEPARTMENT NSTEMI, ACUTE ON DIRECTOR DIETETICS DEPARTMENT Active 10/04/2019 [facility] ANEMIA. Diagnosis Active 2019-10-09 Me moria CKD 09-04 14:07:00 l ANEMIA. 00:00: Aric CKD 00 Active 09/05/2019 [facility] Unstable Unstable Disease [facility] Iron Iron Disease Active 2017-02 [facility] deficiency deficiency 0-04 Me thodi anemia anemia 00:00: st 00 Anemia Anemia Disease Active 2017-02 Russell 0-04 Methodi 00:00: st 00 Cardiomyop Cardiomyop [...] ORIF ALLEOLAR FRACTURE: S/P ORIF Active 10/26/2012 [facility] RESP Diagnosis Active 2013-03-07 Mem oria FAILURE, 10-08 14:49:00 l RT FEMUR RESP 00:00: [place] FX, JAIL FAILURE, 00 RT FEMUR FX, JAIL Active 10/08/2012 [facility] DONNIE Diagnosis Active 2012-11-07 Memoria BILLING 10-08 18:11:00 l ONLY 00:00: Aric LF#[id number] DONNIE 00 BILLING ONLY LF#[id number] Active 10/08/2012 [facility] Colon Colon Disease Active Russell polyp polyp Methodi st Gastric Gastric Disease Active Russell ulcer ulcer Methodi st GERD GERD Disease Active Russell (gastroeso (gastroeso Me thodi phageal phageal st reflux reflux disease) disease) Coronary Problem Resolve 2012-11-17 Me moria bypass d 20:38:43 l surgery Coronary Gabriela nn bypass surgery Resolved Problem 11/17/2012 [facility] Diabetes Problem Resolve 2012-11-17 Me moria d 20:38:43 l Diabetes Arben n Resolved Problem 11/17/2012 [facility] dm Problem Resolve 2012-11-17 Yoav yoselin d 20:38:43 l dm [place] Resolved Problem 11/17/2012 [facility] Hypertensi Problem Resolve 2012-11-17 Memoria on d 20:38:43 l [place] Hypertensi on Resolved Problem 11/17/2012 [facility] Coronary Problem Resolve 2019-10-09 Me moria bypass d 22:14:51 l surgery(Co Coronary He rmann nfirmed) bypass surgery(Co nfirmed) Resolved Problem 10/09/2019 [facility] Diabetes Problem Resolve 2019-10-09 Me moria mellitus d 22:14:51 l (disorder) Diabetes He rmann mellitus (disorder) Resolved Problem 10/09/2019 [facility] dm Problem Resolve 2019-10-09 Yoav yoselin (qualifier d 22:14:51 l value) dm [place] (qualifier value) Resolved Problem 10/09/2019 [facility] Essential Problem Resolve 2019-10-09 M emoria hypertensi d 22:14:51 l on Aric (disorder) Essential hypertensi on (disorder) Resolved Problem 10/09/2019 [facility] Fracture Problem Active 2012-11-17 Mem oria 20:38:43 l Fracture Arben n Active Problem 11/17/2012 [facility] Pain Problem Active 2012-11-17 Memor ia 20:38:43 l Pain Aric Active Problem 11/17/2012 [facility] Pain Problem Active 2019-10-09 Memor ia (finding) 22:14:51 l Pain Aric (finding) Active Problem 10/09/2019 [facility] ANEMIA IN Diagnosis Active 2019-10-09 Memoria CHRONIC 14:07:00 l KIDNEY ANEMIA [place] DISEASE IN CHRONIC KIDNEY DISEASE Active [facility] GASTROINTE Diagnosis Active 2019-10-12 Memoria STINAL 21:38:00 l HEMORRHAGE Arben n , GASTROINTE UNSPECIFIE STINAL D HEMORRHAGE , UNSPECIFIE D Active [facility] NON-ST Diagnosis Active 2019-10-12 Mem oria ELEVATION 21:38:00 l (NSTEMI) NON-ST Arben n MYOCARDIAL ELEVATION INF (NSTEMI) MYOCARDIAL INF Active [facility] ACUTE Diagnosis Active 2019-10-12 Mem oria KIDNEY 21:38:00 l FAILURE, ACUTE Aric UNSPECIFIE KIDNEY D FAILURE, UNSPECIFIE D Active [facility] ACUTE Diagnosis Active 2013-03-07 Mem oria RESPIRATOR 14:49:00 l Y FAILUR ACUTE [place] RESPIRATOR Y FAILUR Active [facility] FX FIBULA Diagnosis Active 2012-11-17 Memoria NOS-CLOSED 21:43:00 l FX [place] FIBULA NOS-CLOSED Active [facility] Allergies, Adverse Reactions, Alerts Allergy Allergy Status Severity Reaction(s) Onset Inactive Treating Comm ents Source Name Type Date Date Clinician morphine morphine Active Katina Corbett Social History Social Habit Start Date Stop Date Quantity Comments Source Sex Assigned At [facility] Tobacco use and 2017-12-29 2017-12-29 Never used Baptiste M ethodist exposure 00:00:00 00:00:00 Alcohol intake 2017-12-29 2017-12-29 Current drinker of [employer] [facility] 00:00:00 00:00:00 alcohol (finding) Alcohol Comment 2012-12-31 2012-12-[address] [facility] 00:00:00 00:00:00 [facility] Smoking Status Start Date Stop Date Source Social History [facility] Medications Ordered Filled Start Stop Current Ordering [...] 60, # 30 tab, 0 Refill(s), [facility]acy: [id number], 175.26, cm, 10/04/19 20:03:00 CDT, Height, 123, kg, 10/04/19 20:03:00 CDT, Weight isosorbide 2020-0 Yes 60 mg = 1 Me moria mononitrate 8-10 tab, PO, l 60 mg oral 21:59: QAM, Hold rmann tablet, 00 for extended systolic release blood pressure less than 100 or heart rate less than 60, # 90 tab, 1 Refill(s), Pharmacy: [id number], 175.26, cm, 10/04/19 20:03:00 CDT, Height, 123, kg, 10/04/19 20:03:00 CDT, Weight Tylenol No Notes: Do Memor ia 10-06 not exceed l 17:00: 4 gm/day. (Same as: Tylenol) albumin No Notes: Shahrzad human 25% 10-06 LOT#: l intravenous 13:59: [place] solution 00 ___ Mfg: WASTE: F/P - Red; E -Red (Same as: Albuminar) "blood product derivative " Potassium No Notes: Memori a Chloride 10-05 (Same as: l 15:13: K-Dur ) "Do Not Crush" Give with food and full glass of water For patients unable to swallow tablet, dissolve in one half glass of water. Allow about 2 minutes for the tablets to disintegra te. Stir before giving to prepare slurry and administer . Please exclude Patient s with feeding tube less than 14 Romanian (Dobhoff, J-tube etc) and pediatric and patients. metolazone No Notes: Memor ia 10-05 (Same as: l 15:05: Zaroxolyn) Vitamin D3 No Notes: Memor ia 2000 intl 10-05 Same as : l units oral 14:00: Vitamin D3 H Fenofibrate No 135 mg, 1 M emoria 10-05 cap, l 14:00: Route: PO, Drug form: CAP, Daily, Dosing Weight 123, kg, Start date: 10/06/19 9:00:00 CDT, Duration: 30 day, Stop date: 11/04/19 9:00:00 CDT fenofibrate No Notes: Yoav yoselin 10-05 (Same as: l 14:00: Tricor) Aspirin No Notes: Do Memor ia 10-05 not crush l 14:00: or chew. (Same As: Ecotrin) isosorbide No Notes: Memor ia mononitrate 10-05 (Same l extended 14:00: as:Imdur) Herm billei release "Do Not Crush" Take on empty stomach/ full glass of water. Do not crush Metolazone 2019-0 No Notes: Memor ia 5 MG Oral 10-05 (Same as: l Tablet 13:27: Zaroxolyn) Gabriela nn 00 Bumex 0 No Notes: Memoria 10-05 (Same As: l 12:00: Bumex) [place] 00 Bumex 2019-0 No 2 mg, Memoria 10-05 Route: IV, l 04:06: Q8H, [place] 00 Dosing Weight 123, kg, Priority: NOW, Start date: 10/05/19 23:06:00 CDT, Duration: 30 day, Stop date: 11/04/19 16:00:00 CDT Sodium 2019-0 No 250 mL, Memoria Chloride 10-05 Rate: To l 0.9% 04:05: prime line [place] (titrate) 00 and flush 250 mL remaining blood products., Dosing Weight 123, kg, Route: IV, Total Volume: 250, Start Date: 10/05/19 23:05:00 CDT, Duration: 1 day, Stop date: 10/06/19 23:04:00 CDT, Replace Every: 24 hr, 0 albumin 2019- No 25 gm, Memoria human 25% 10-05 Route: l intravenous 02:22: IVPB, Gabriela nn solution 00 ONCE, Dosing Weight 123, kg, Start date: 10/05/19 21:22:00 CDT, Stop date: 10/05/19 21:22:00 CDT, Indication : Non-hemorr hagic shock Morphine 0 No Notes: Memoria 10-05 (Same l 02:18: as:MORPhin [place] 00 e Sulfate) Dilaudid 0 No Notes: Memoria 10-05 Same as: l 02:18: Dilaudid atorvastati No Notes: Yoav yoselin n 10-05 (Same As: l 02:00: Lipitor) Aric 00 Jones 0 No Notes: Memoria packet 10-05 (Same as: l 02:00: Jones [place] 00 [place]) Bumex 0 No Notes: Memoria 10-04 (Same As: l 23:04: Bumex) [place] 00 Fluticasone 0 No Notes: Yoav yoselin propionate 10-04 (Same as: l 0.05 22:00: Flonase) [place] MG/ACTUAT 00 Metered Dose Nasal Mobile [Flonase] Protonix 2020-0 No Notes: For Mem oria 10-04 IV push l 22:00: reconstitu [place] 00 te with 10 ml 0.9% sodium chloride and push over 2 minutes. (Same as: Protonix) Sodium 2020-0 No 250 mL, Memoria Chloride 10-04 Rate: To l 0.9% 19:06: prime line Aric (titrate) 00 and flush 250 mL remaining blood products., Dosing Weight 123, kg, Route: IV, Total Volume: 250, Start Date: 10/05/19 14:06:00 CDT, Duration: 1 day, Stop date: 10/06/19 14:05:00 CDT, Replace Every: 24 hr, 0 Morphine 2020-0 No 4 mg, Memoria 10-04 Route: l 15:08: IVP, ONCE, [place] Dosing Weight 123, kg, Start date: 10/05/19 10:08:00 CDT, Stop date: 10/05/19 10:08:00 CDT Nitroglycer 2019-0 No Notes: Yoav yoselin in 0.3 MG 10-04 (Same l Sublingual 14:19: as:Nitroqu H ermann Tablet 00 ick, Nitrostat) "Do Not Crush" Sublingual tablet Sodium 2019-0 No 250 mL, Memoria Chloride 10-04 Rate: To l 0.9% 12:25: prime line [place] (titrate) 00 and flush 250 mL remaining blood products., Dosing Weight 123, kg, Route: IV, Total Volume: 250, Start Date: 10/05/19 7:25:00 CDT, Duration: 1 day, Stop date: 10/06/19 7:24:00 CDT, Replace Every: 24 hr, 0 12 HR 2020-0 No Notes: Memoria ranolazine 10-04 Same as l 500 MG 08:58: Ranexa "Do Gabriela nn Extended 00 Not Crush" Release Tablet [Ranexa] metoprolol 2020-0 No 12.5 mg = Me moria 25 mg oral 10-04 0.5 tab, l tablet, 02:48: PO, BID, 0 Herm billie extended 00 Refill(s) release pregabalin 2020-0 Yes 75 mg = 1 Me moria 75 mg oral 10-04 cap, PO, l capsule 02:48: Bedtime, 0 Herm billie Refill(s) atorvastati 2020-0 Yes 20 mg, PO, [...] 00 gm, 0 Metered Refill(s) Dose Nasal Mobile [Flonase] Loratadine 2020-0 Yes 10 mg = 1 Me moria 10 MG Oral 10-04 tab, PO, l Tablet 02:48: Daily, 0 [place] [Claritin] 00 Refill(s) Bumex 2020-0 No Notes: Memoria 10-04 (Same As: l 01:12: Bumex) Ondansetron 2020-0 No Notes: Yoav yoselin 10-04 (Same as: l 00:46: Zofran) MEDICATION WASTE Product Size: 4 mg Product Wasted: ___ mg Nafcillin 2020-0 No 2 gm, Memoria 10-03 Route: l 21:00: IVPB, Q4H, Dosing Weight 122.727, kg, Start date: 10/04/19 16:00:00 CDT, Duration: 30 day, Stop date: 11/03/19 12:00:00 CDT, 0 Dextrose 2020-0 No 12.5 gm, Memor ia 50% Syringe 10-03 25 mL, l (D50W) 20:27: Route: [place] 00 IVP, Drug Form: INJ, Dosing Weight 122.727, kg, PRN, PRN Blood Glucose Results, Start date: 10/04/19 15:27:00 CDT, Duration: 30 day, Stop date: 11/03/19 15:26:00 CDT, 0 Glucagon 2020-0 No 1 mg, Memoria 10-03 Route: IM, l 20:27: Drug form: [place] 00 PDR/INJ, PRN, Dosing Weight 122.727, kg, PRN Blood Glucose Results, Start date: 10/04/19 15:27:00 CDT, Duration: 30 day, Stop date: 11/03/19 15:26:00 CDT, 0 Insulin 2020-0 No Notes: Memoria Lispro 10-03 (Same as: l 20:27: Humalog) Aric Roll in palms of hands gently; Do not shake vigorously . WASTE: F/P - Black; E - Municipal Trash Bin Stable for 28 days at room temperatur e. Expires in days from ____Date pantoprazol 2019-0 No Notes: For Memoria e additive 10-03 IV push l 80 mg + 20:24: reconstitu Herm billie Sodium 00 te with 10 Chloride ml 0.9% 0.9% IV 100 sodium mL chloride and push over 2 minutes. (Same as: Protonix) Sodium 2019-0 No 250 mL, Memoria Chloride 10-03 Rate: To l 0.9% 18:05: prime line Aric (titrate) 00 and flush 250 mL remaining blood products., Dosing Weight 122.727, kg, Route: IV, Total Volume: 250, Start Date: 10/04/19 13:05:00 CDT, Duration: 1 day, Stop date: 10/05/19 13:04:00 CDT, Replace Every: 24 hr, 0 Saline 2020-0 No Notes: Memoria Flush 0.9% 10-03 Same as: l 16:51: BD Aric 00 Posiflush Sterile Sodium 2020-0 No 1,000 mL, Memori a Chloride 10-03 1000 l 0.9% 16:51: ml/hr, [place] (Bolus) IV 00 Infuse Over: 1 hr, [...] tab, PO, l Tablet 14:19: BID, 0 Aric [Brilinta] 00 Refill(s) omeprazole 2020-0 Yes 40 mg = 1 Me moria 40 mg oral 7-14 cap, PO, l delayed 14:19: Daily, # Arben n release 00 30 cap, 0 capsule Refill(s) [place]-3 2020-0 Yes 0 Memoria oral 7-14 Refill(s) [...] tab, PO, l tablet 14:19: Daily, # [place] 00 30 tab, 0 Refill(s) fenofibric 2020-0 Yes 135 mg = 1 M emoria acid 135 mg 7-14 cap, PO, l oral 14:19: Daily, # [place] delayed 00 30 cap, 0 release Refill(s) capsule pioglitazon Yes 45 mg = 1 M emoria e 45 mg 7-14 tab, PO, l oral tablet 14:19: Daily, # He rmann 00 30 tab, 0 Refill(s) rosuvastati Yes 10 mg = 1 M emoria n 10 mg 7-14 tab, PO, l oral tablet 14:19: Bedtime, # [place] 00 30 tab, 0 Refill(s) Aspirin 81 2019- Yes 81 mg = 1 Me moria MG Chewable 7-14 tab, PO, l Tablet 14:19: Daily, Aric 00 tab, 0 Refill(s) Vitamin D3 Yes [...] PRN l Hydrocodone 14:19: Pain, # 60 [place] Bitartrate 00 tab, 0 10 MG Oral [...] 2017-02 Yes 1000U Take 1,000 Baptiste meaghan, 1-01 Units by Methodi vitamin D3, 12:33: mouth. [...] [facility] - tablet 10:12: daily. Medical [address] [place] rosuvastati Yes 10mg QD Take 10 mg [...] MG tablet 10:12: daily. Medica l [address] [place] choline Yes 135mg Take 135 [place] on [...] [place] -acetaminop 1-08 tablet by Met yohannes ravi (NORCO) 00:00: mouth. st 10-325 mg 00 per tablet omega-3 Yes 2g Take 2 g [place] n acid ethyl 1-08 by mouth. Meth rosie esters 00:00: st [...] Take [address] (LOPRESSOR) 1-01 by mouth 2 Lisette kes - 25 [...] Take [address] [facility] (ACTOS) 1-01 by mouth [facility] - 45 MG 20:20: daily. Medical tablet [place] pantoprazol 2012-02 Yes 40mg QD Take [address] [facility] 02-27 by mouth [facility] - (PROTONIX) 20:20: daily. Medic al 40 MG 04 Center tablet mupirocin Yes Jackson 1 appl, Me moria topical 2% 9-19 Shabbir TOP, BID, l ointment 21:49: Bubis 22 gm, Arben n 59 Substituti on Allowed, OINT mupirocin No Jackson 1 appl, Me moria topical 2% -19 Shabbir TOP, BID, l ointment 21:31: Bubis 1 tube, Gabriela nn 33 Substituti on Allowed, OINT docusate Yes Jackson 100 mg, Mem oria sodium 100 9-19 Shabbir PO, BID, l mg oral 18:25: Bubis PRN, 20 Arben n capsule 18 cap, Constipati on, Substituti on Allowed Dinosaur Yes Jackson 1 tab, PO, Mem oria 10/325 oral 9-19 Shabbir Q4H, PRN, l tablet 18:25: Bubis 24 tab, [place] 00 for pain, Substituti on Allowed, Maintenanc e pregabalin Yes Jackson 100 mg, 1 Memoria 100 mg oral 9-19 Shabbir cap, PO, l capsule 18:24: Bubis Q8H, 90 Arben n 26 cap, Substituti on Allowed, CAP pantoprazol Yes Jackson 40 mg, 1 Memoria e 40 mg 9-19 Shabbir tab, PO, l oral 18:24: Bubis Q12H, 60 Aric enteric 11 tab, coated Substituti tablet on [...] cap, capsule Substituti on Allowed, CAP bacitracin 2013-0 No Jackson 1 appl, M emoria topical 500 11-15 Shabbir TOP, l units/g 18:23: Bubis Daily, Aric ointment 22 PRN, 1 tube, Wound Care, Substituti on Allowed, OINT atorvastati Yes Jcakson 40 mg, 1 Memoria n 40 mg 11-15 Shabbir tab, PO, l oral tablet 18:23: Bubis Daily, 30 [place] 06 tab, Substituti on Allowed, TAB aspirin [...] Jackson 1 appl, Me moria 2% topical 11-15den Route: l ointment 01:00: Bubis TOP, BID, Her stephenson 00 Drug form: OINT, Cleanse left posterior thigh wound with wound cleanser. Pat dry and apply Bactroban ointment BID., Start date: 11/14/12 20:00:00, Duration: 30 day, Stop date: 12/14/12 8:00:00 Bactroban No Jackson 1 appl, Me moria 11-14 Shabbir Route: l 22:00: Bubis TOP, BID, [place] 00 Drug form: OINT, Cleanse left posterior thigh wound with wound cleanser. Pat dry and apply Bactroban ointment BID., Start date: 11/14/12 17:00:00, Duration: 30 day, Stop date: 12/14/12 8:00:00 NS 1,000 mL No Catie 1,000 mL, Memoria 11-13 Inder Rate: 75 l 01:08: ml/hr, Aric 00 Infuse over: 13.3 hr, Route: IV, Dosing Weight 109.091 kg, Total Volume: 1,000, Start date: 11/12/12 20:08:00, Duration: 30 day, Stop date: 12/12/12 20:07:00 magnesium 2013-0 No [place] 2 gm, 50 Me moria sulfate 9-17 Camcioglu mL, Route: l 01:00: IVPB, Drug [place] 00 form: INJ, Q2H, Dosing Weight 109.091, kg, Total dose = 4 gm, Start date: 11/12/12 20:00:00, Duration: 2 doses or times, Stop date: 11/12/12 22:00:00 nitroglycer 2012-0 No [place] 0.4 mg, 1 Memoria in 0.4 mg 9-12 [place] tab, l sublingual 14:03: Route: SL, H ermann tablet 00 Drug form: TAB, Q5Min, Dosing Weight 109.091, kg, PRN Chest Pain, Start date: 11/08/12 9:03:00, Duration: 30 day, Stop date: 12/08/12 9:02:00 magnesium 2012-0 No [place] 2 gm, 50 Me moria sulfate 9-12 Cam[place]lu mL, Route: l 13:00: IVPB, Drug [place] form: INJ, Q2H, Dosing Weight 109.091, kg, Total dose = 4 gm, Start date: 11/08/12 8:00:00, Duration: 2 doses or times, Stop date: 11/08/12 10:00:00 hydrALAZINE 2012-0 No [place] 5 mg, 0.25 Memoria 9-12 [place]lu mL, Route: l 02:12: IV, Drug Aric 00 form: INJ, Q6H, Dosing Weight 109.091, kg, [...] 11/05/12 17:01:00, Stop date: 11/05/12 17:01:00 midodrine No [place] 10 mg, 1 Me moria 11-04 Camci[place]lu tab, l 18:00: Route: PO, [place] Drug form: TAB, TID, Dosing Weight 109.091, kg, Start date: 11/04/12 13:00:00, Duration: 30 day, Stop date: 12/04/12 8:00:00 Kayexalate No Jackson 15 gm, 60 Memoria 11-04 Shabbir mL, Route: l 15:39: Bubis PO, Drug [place] 00 form: SUSP, ONCE, Dosing Weight 109.091, kg, Start date: 11/04/12 10:39:00, Stop date: 11/04/12 10:39:00 insulin No [place] 3 unit, Memor ia isophane-DAIRY INSPECTOR 11-03 Camcioglu 0.03 mL, l H 16:30: Route: [place] 00 SUB-Q, Drug form: INJ, BID, Dosing Weight 109.091, kg, Start date: 11/03/12 11:30:00, Duration: 30 day, Stop date: 12/03/12 8:00:00 magnesium 2012-0 No Jackson 2 gm, 50 M emoria sulfate 11-03 Shabbir mL, Route: l 13:00: Bubis IVPB, Drug form: INJ, Q2H, Dosing Weight 109.091, kg, Total Dose = 4 gm, Start date: 11/03/12 8:00:00, Duration: 2 doses or times, Stop date: 11/03/12 10:00:00, For Mg = 1.5 - 1.7 mg/dLFor Mg = 1.5 - 1.7 mg/dL Sodium No Jackson 250 mL, Memor ia Chloride 11-03 Shabbir Rate: On l 0.9% 12:30: Bubis call for [place] (titrate) 00 use with 250 mL blood [...] 11-02 Omidvar Rate: 500 l 02:26: ml/hr, [place] 00 Infuse over: 1 hr, Route: IV, Dosing Weight 109.091 kg, Total Volume: 500, Priority: STAT, Start date: 11/01/12 21:26:00, Duration: 1 doses or times, Stop date: 11/01/12 22:25:00, Bolus DoseBolus Dose Lovaza No Jackson Lovaza Memori a ([place]-3-Ac 11-02den ([place]-3-A l id Ethyl 01:00: Bubis oscar Ethyl [...] Jackson 1,000 mL, Mem oria saline 0.9% 9-05 Shabbir Rate: 75 l IV 1,000 mL [...] or times, Stop date: 11/01/12 15:24:00 Kayexalate 2012- No Jackson 30 gm, Me moria 11-01 Shabbir Route: PO, l 16:26: Bubis Drug form: Arben n 00 SUSP, ONCE, Dosing Weight 109.091, kg, Start date: 11/01/12 11:26:00, Stop date: 11/01/12 11:26:00 aspirin 2012- No [place] 325 mg, 1 Mem oria 10-31 Camcioglu tab, l 13:00: Route: PO, Drug form: ECTAB, Daily, Dosing Weight 109, kg, Start date: 10/31/12 8:00:00, Duration: 30 day, Stop date: 11/29/12 8:00:00 bisacodyl 2012- No [place] 10 mg, 1 Me moria - Camci[place]lu supp, l 20:07: Route: AR, Drug form: SUPP, Daily, Dosing Weight 109, kg, PRN Constipati on, Start date: 10/30/12 15:07:00, Duration: 30 day, Stop date: 11/29/12 15:06:00 Dextrose 2012-0 No [place] 25 gm, 50 Me moria 50% Syringe 10-30 Camcioglu mL, Route: l 15:52: IVP, Drug Form: INJ, Dosing Weight 109, kg, PRN, PRN Blood Glucose Results, Start date: 10/30/12 10:52:00, Stop date: 11/25/12 10:51:00 magnesium 2012-0 No [place] 150 ml, Mem oria citrate 10-29 Camcioglu Route: PO, l 16:02: Drug Form: [place] 00 LIQ, Dosing Weight 109.091, kg, ONCE, Start date: 10/29/12 11:02:00, Stop date: 10/29/12 11:02:00 Lovenox 2012-0 No Taryn H 30 mg, 0.3 Me moria 10-29 Khraish mL, Route: l 14:00: SUB-Q, [place] 00 Drug form: INJ, Q12H, Dosing Weight [...] Khraish mL, Route: l 21:00: SUB-Q, Aric Drug form: INJ, Q12H, Dosing Weight 109.091, [...] mL, Route: l 13:00: IVPB, Drug Aric form: INJ, Q2H, Dosing Weight 109, kg, Total dose = 4 gm, Start date: 10/27/12 8:00:00, Duration: 2 doses or times, Stop date: 10/27/12 10:00:00 pregabalin 2012-0 No Jackson 100 mg, 1 Memoria - Shabbir cap, l 13:00: Bubis Route: PO, Arben n Drug form: CAP, Q8H, Dosing Weight 109, kg, Start date: 10/27/12 8:00:00, Stop date: 11/26/12 0:00:00 Lovaza 2012-0 No Jackson 1,000 mg, Mem oria 10-27 Shabbir 1 cap, l 13:00: Bubis Route: PO, Arben n Drug Form: CAP, Dosing Weight 109, kg, [...] 10-27 Camcioglu tab, l 13:00: Route: PO, Aric 00 Drug form: TAB, Daily, Dosing Weight 109, kg, Start date: 10/27/12 8:00:00, Stop date: 11/25/12 8:00:00 Lidoderm 5% 2012-0 No Jackson 1 patch, Memoria topical 10-27 Shabbir Route: l film 13:00: Aric Abreu (patch) 00 Daily, Drug form: FILM, Start date: 10/27/12 8:00:00, Duration: 30 day, Stop date: 11/24/12 10:30:00 Trilipix 2012- No Jackson 135 mg, 1 M emoria 10-27 Shabbir cap, l 13:00: Bubis Route: PO, Arben n 00 Drug form: CAP, Daily, Dosing Weight 109, kg, Start date: 10/27/12 8:00:00, Stop date: 11/25/12 8:00:00 atorvastati 2012- No Robert 40 mg, 1 Me moria n 10-27 Chibueze tab, l 13:00: Osuagwu Route: PO, Herm billie 00 Drug form: TAB, Daily, Dosing Weight 109, kg, Start date: 10/27/12 8:00:00, Duration: 30 day, Stop date: 11/25/12 8:00:00 aspirin 2012-0 No [place] 81 mg, 1 Yoav yoselin 10-27 Camcioglu tab, l 13:00: Route: PO, [place] 00 Drug form: ECTAB, Daily, Dosing Weight 109, kg, Start date: 10/27/12 8:00:00, Duration: 30 day, Stop date: 11/25/12 8:00:00 AMIODarone 2012- No Robert 200 mg, 1 Me moria 10-27 Chibueze tab, l 13:00: Osuagwu Route: PO, Herm billie 00 Drug form: TAB, Daily, Dosing Weight 109, kg, Start date: 10/27/12 8:00:00, Duration: 30 day, Stop date: 11/25/12 8:00:00 Ultram 50 2012-0 No [place] 50 mg, 1 Me moria mg oral 10-27 Camcioglu tab, l tablet 05:09: Route: PO, Gabriela nn Drug form: TAB, Q6H, Dosing Weight 109, kg, PRN Pain Score 4-6, Start date: 10/27/12 0:09:00, Stop date: 11/26/12 0:08:00 Dinosaur 2012-0 No [place] 1 tab, Memoria 10/325 oral 10-27 Camcioglu Route: PO, l tablet 05:09: Drug Form: Gabriela nn 00 TAB, Dosing Weight 109, kg, Q6H, PRN Pain Score 7-10, Start date: 10/27/12 0:09:00, Stop date: 11/26/12 0:08:00 bacitracin 2012- No Robert 1 appl, Yoav yoselin topical 500 8-31 Chibueze Route: l units/g 05:05: Osuagwu TOP, [place] ointment 00 Daily, Drug form: OINT, PRN Wound Care, Start date: 10/27/12 0:05:00, Stop date: 11/26/12 0:04:00 docusate 2012- No [place] 100 mg, 1 Me moria 8-30 Camcioglu cap, l 22:00: Route: PO, Drug form: CAP, BID, Dosing Weight 109, kg, Start date: 10/26/12 17:00:00, Duration: 30 day, Stop date: 11/25/12 9:00:00 Insulin No [place] 1 unit, Memor ia regular 8-30 Camcioglu 0.01 mL, l 21:50: Route: Aric SUB-Q, Drug form: SOLN, TID-Before Meals, Dosing Weight 109, kg, PRN Blood Glucose Results, Start date: 10/26/12 16:50:00, Duration: 30 day, Stop date: 11/25/12 16:49:00 bisacodyl No [place] 10 mg, 1 Me moria 8-30 Camci[place]lu supp, l 21:50: Route: AR, Drug form: SUPP, ONCE, Dosing Weight 109, kg, PRN Constipati on, Start date: 10/26/12 16:50:00 Milk of No [place] 30 mL, Memori a Magnesia 8-30 [place] Route: PO, l 21:50: Drug Form: Aric 00 SUSP, Dosing Weight 109, kg, Daily, PRN Constipati on, Start date: 10/26/12 16:50:00, Duration: 30 day, Stop date: 11/25/12 16:49:00 Lidoderm 5% Yes Robert 1 patch, Me moria topical 8-30 [place]ze TOP, l film 20:00: Osuagwu Daily, 5 Arben n (patch) 55 patch, Substituti on Allowed, FILM pregabalin Yes Robert 50 mg, 1 Mem oria [...] [place] tab, l 14:00: Route: PO, Aric 00 Drug form: TAB, Daily, Dosing Weight 109, kg, Start date: 10/26/12 9:00:00, Duration: 30 day, Stop date: 11/24/12 9:00:00 Remove - 2012- No [place] 1 patch, Mem oria lidocaine 8-30 [place] Route: l topical 14:00: TOP, [place] patch 00 Daily, Drug form: ERFILM, Start date: 10/26/12 9:00:00, Duration: 30 day, Stop date: 11/24/12 9:00:00 magnesium No [place] 2 gm, 50 Me moria sulfate 8-30 [place] mL, Route: l 13:00: IVPB, Drug Aric form: INJ, Q2H, Dosing Weight 109, kg, Total dose = 4 gm, Start date: 10/26/12 8:00:00, Duration: 2 doses or times, Stop date: 10/26/12 10:00:00 lidocaine 2012-0 No Cely 2 patch, Yoav yoselin topical 8-30 Gt Route: l patch (5% 04:00: Henschel TOP, Herm billie film) 00 Bedtime, Drug form: FILM, Start date: 10/25/12 23:00:00, Duration: 30 day, Stop date: 11/24/12 21:00:00, Remove after 12 hoursRemov e after 12 hours Flomax 2012-0 No Belgin 0.4 mg, 1 Yoav yoselin 8-29 Camcioglu cap, l 22:00: Route: PO, Raic 00 Drug form: CAP, After Dinner, Dosing Weight 109, kg, Start date: 10/25/12 17:00:00, Duration: 30 day, Stop date: 11/23/12 17:00:00 bacitracin 2012-0 No Belgin 1 appl, Me moria topical 8-29 Camcioglu Route: l 17:00: TOP, Q6H, [place] 00 Drug form: OINT, Start date: 10/25/12 12:00:00, Duration: 30 day, Stop date: 11/24/12 6:00:00 ketorolac 2012-0 No Robert 30 mg, 1 Yoav yoselin 8-29 Chibueze mL, Route: l 07:08: Osuagwu IV, Drug Arben n form: INJ, ONCE, Dosing Weight 109, kg, Start date: 10/25/12 2:08:00, Duration: 1 doses or times, Stop date: 10/25/12 2:08:00 ondansetron 2012-0 No Mark 4 mg, 2 Me moria 8-29 Kyler mL, Route: l 03:19: Pathikonda IVP, Drug He rmann form: INJ, ONCE, Dosing Weight 109, kg, PRN Nausea & Vomiting, Start date: 10/24/12 22:19:00 flumazenil 2012-0 No Mark 0.2 mg, 2 M emoria 8-29 Kyler mL, Route: l 03:19: Pathikonda [...] or times, Stop date: 10/25/12 6:00:00 hydromorpho 2012-0 No Mark 0.5 mg, Me moria ne 8-29 Kyler 0.25 mL, l 03:19: Pathikonda Route: Gabriela nn IVP, Drug form: INJ, Q5Min, Dosing Weight 109, kg, PRN Pain Score 7-10, Start date: 10/24/12 22:19:00, Duration: 5 doses or times, Stop date: 10/25/12 6:00:00 labetalol 2012-0 No Mark 5 mg, 1 Yoav yoselin 8-29 Kyler mL, Route: l 03:19: Pathikonda IVP, Drug He form: INJ, Q5Min, Dosing Weight 109, kg, PRN Elevated BP, Start date: 10/24/12 22:19:00, Duration: 5 doses or times, Stop date: 10/25/12 6:00:00 naloxone 2012-0 No Mark 0.04 mg, Yoav yoselin 8-29 Kyler Route: l 03:15: Pathikonda IVP, [place] 00 Q2MIN, Dosing Weight 109, kg, PRN Narcotic Reversal, Start date: 10/24/12 22:15:00, Duration: 8 doses or times, Stop date: Limited # of times ondansetron 2012- No Mark 4 mg, Yoav yoselin 8-29 Kyler Route: l 03:15: Pathikonda IVP, ONCE, H erm Dosing Weight 109, kg, PRN Nausea & Vomiting, Start date: 10/24/12 22:15:00 flumazenil No Mark 0.2 mg, Mem oria 10-25 Kyler Route: l 03:15: Pathikonda IVP, PRN, He Dosing Weight 109, kg, PRN Benzodiaze pine Reversal, Initial dose, Start date: 10/24/12 22:15:00, Duration: 30 day, Stop date: 11/23/12 22:14:00 labetalol No Mark 5 mg, Memori a 10-25 Kyler Route: l 03:15: Pathikonda IVP, [place] 00 Q5Min, Dosing Weight 109, kg, PRN Elevated BP, Start date: 10/24/12 22:15:00, Duration: 5 doses or times, Stop date: Limited # of times Ancef No Lopez 2 gm, 50 Memor ia 10-25 Cameron mL, Route: l 01:12: Koepplinge IVP, Drug He r form: INJ, ONCE, Dosing Weight 109, [...] 10-20 Bogomolny Route: l topical 14:00: TOP, Aric patch 00 Daily, Drug form: ERFILM, Start [...] sulfate 10-20 Shabbir mL, Route: l 03:00: Bubis IVPB, Drug Arben n 00 form: INJ, Q2H, Dosing Weight 109, kg, Total Dose = 6 gm, Start date: 10/19/12 22:00:00, Duration: 1 doses or times, Stop date: 10/19/12 22:00:00, For Mg = 1 - 1.4 mg/dLFor Mg = 1 - 1.4 mg/dL Lidoderm 5% No Cely 2 patch, Me moria topical 10-20 Gt Route: l film 02:00: Henschel TOPAric (patch) 00 Daily, Drug form: FILM, Start date: 10/19/12 21:00:00, Stop date: 11/17/12 21:00:00, Remove after 12 hoursRemov e after 12 hours Dinosaur No Ezio W 1 tab, Memoria 10/325 [...] 10-19 Bogomolny tab, l 23:00: Route: PO, Aric 00 Drug form: TAB, Q6H, Dosing Weight 109, kg, Start date: 10/19/12 18:00:00, Duration: 30 day, Stop date: 11/18/12 12:00:00 cefazolin + No Thomas 2 gm, Me moria Sodium 10-19 Steve Route: l Chloride 22:30: [place] Jr IVPB, He rmann 0.9% IV 100 00 ABXQ8H, mL Start date: 10/19/12 17:30:00, Duration: 3 doses or times, Stop date: 10/20/12 9:30:00 Dinosaur 2012- No Ezio W 1 tab, Memoria 10/325 oral 10-19 Bogomolny Route: PO, l tablet 22:09: Drug Form: Gabriela nn 00 TAB, Dosing Weight 109, kg, Q4H, PRN Pain, Start date: 10/19/12 17:09:00, Duration: 30 day, Stop date: 11/18/12 17:08:00 magnesium No Jackson 2 gm, 50 M emoria [...] l Q-Pump 1 ea 18:58: Henschel ml/hr, Aric + Sodium 00 Infuse Chloride over: 50 0.9% hr, Dosing (titrate) Weight 320 mL 109, kg, Route: NERVE BLOCK, Total Volume: 400 mL, Duration: 30 day, Stop date: 11/18/12 13:57:00, Replace Every: 24 hr Ancef No Thomas 2 gm, Memoria 10-19 Steve Route: l 18:00: [place] Jr IVPB, Arben n 00 ABXQ8H, Dosing Weight 109, kg, Start date: 10/19/12 13:00:00, Duration: 3 doses or times, Stop date: 10/20/12 5:00:00 naloxone No Shahbaz 0.04 mg, M emoria 8-23 Jackson 0.1 mL, l 17:41: Agudelo Route: [place] IVP, Drug form: INJ, Q2MIN, Dosing Weight [...] Jackson 0.25 mL, l 17:41: Agudelo Route: [place] IVP, Drug form: INJ, Q5Min, Dosing Weight 109, kg, PRN Pain Score 7-10, Start date: 10/19/12 12:41:00, Duration: 5 doses or times, Stop date: 10/20/12 0:00:00 fentanyl 2012-0 No Shahbaz 25 Memor ia 8-23 Jackson microgram, l 17:41: Agudelo 0.5 mL, [place] 00 Route: IVP, Drug form: INJ, Q5Min, Dosing [...] Stop date: 10/20/12 0:00:00 magnesium 2012- No Jackson 2 gm, 50 [...] ia 10-19 Munz Route: l 14:47: IVPB, [place] 00 ONCE, Dosing Weight 109, kg, Start [...] 1,000 mL No Belgin 1,000 mL, Memoria 8-20 Camcioglu Rate: 40 l 15:14: ml/hr, [place] 00 Infuse over: 25 hr, Route: IV, Dosing Weight 109 kg, Total Volume: 1,000, Start date: 10/16/12 10:14:00, Duration: 30 day, Stop date: 11/15/12 10:13:00 OXYcodone No Ezio W 10 mg, 1 M emoria 10 mg 10-16 Bogomolny tab, l extended 02:00: Route: PO, Her stephenson release 00 Drug form: ERTAB, Q12H, Start date: 10/15/12 21:00:00, Duration: 30 day, Stop date: 11/14/12 9:00:00 Pneumovax No SYSTEM 0.5 ml, Mem oria 23 10-15 SYSTEM Route: IM, l 23:00: Drug Form: [place] INJ, Daily, Start date: 10/15/12 18:00:00, Duration: 1 doses or times, Stop date: 10/15/12 18:00:00 Visipaque No Casa 85 mL, Memoria 320mg/ml 10-15 rakesh Colin Route: l 08:31: Goodenough IVP, Drug He Form: SOLN, Dosing Weight 109, kg, ONCALL, STAT, Start date: 10/15/12 3:31:00, Duration: 1 doses or times, Stop date: 10/16/12 0:00:00, Dose = 2.2ml/kg, Max dose = 100ml -- "To be infused by Radiology Staff ONLY"Dose = 2.2ml/kg, Max dose = 100ml -- "To be infused by Radiology Staff ONLY" Dinosaur No Robert 1 tab, Memoria 10/325 oral 10-15 Chibueze Route: PO, l tablet 08:04: Osuagwu Drug Form: He rmann 00 TAB, Dosing Weight 109, kg, Q4H, PRN as needed for pain, Start date: 10/15/12 3:04:00, Duration: 30 day, Stop date: 11/14/12 3:03:00 docusate 2013-0 No Abran 100 mg, 1 Mem oria sodium 100 8-19 Mims cap, l mg oral 02:00: Pope Route: PO, He rmann capsule 00 Drug form: CAP, Q12H, Start date: 10/14/12 21:00:00, Duration: 30 day, Stop date: 11/13/12 9:00:00 Insulin 2012-0 No Robert 2 unit, Memoria regular 8-18 Chibueze 0.02 mL, l 17:59: Osuagwu Route: [place] 00 SUB-Q, Drug form: SOLN, TID-Before Meals, Dosing Weight 109, kg, PRN Blood Glucose Results, Start date: 10/14/12 12:59:00, Duration: 30 day, Stop date: 11/13/12 12:58:00 Dextrose 2012- No Robert 25 gm, 50 Yoav yoselin 50% Syringe 10-14 Chibueze mL, Route: l 17:59: Osuagwu IVP, Drug Gabriela nn 00 Form: INJ, Dosing Weight 109, kg, PRN, PRN Blood Glucose Results, Start date: 10/14/12 12:59:00, Duration: 30 day, Stop date: 11/13/12 12:58:00 glucagon 2012- No Robert 1 mg, Memoria 10-14 Chibueze Route: IM, l 17:59: Osuagwu Drug form: Herm billie 00 PDR/INJ, PRN, Dosing Weight 109, kg, PRN Blood Glucose Results, Start date: 10/14/12 12:59:00, Duration: 30 day, Stop date: 11/13/12 12:58:00 Dinosaur 2012-0 No Robert 1 tab, Memoria 10/325 oral 10-13 Chibueze Route: PO, l tablet 17:00: Osuagwu Drug Form: He rmann 00 TAB, Dosing Weight 109, kg, Q6H, Start date: 10/13/12 12:00:00, Duration: 30 day, Stop date: 11/12/12 6:00:00 lisinopril 2012-0 No Jackson 30 mg, 3 Memoria 8-17 Shabbir tab, l 14:00: Bubis Route: PO, Arben n 00 Drug form: TAB, Daily, Dosing Weight 109, kg, Start date: 10/13/12 9:00:00, Stop date: 11/11/12 9:00:00 magnesium 2012- No Lalo 2 gm, 50 Me moria sulfate 8-17 Gottig mL, Route: l 13:00: Maggin IVPB, Drug Gabriela nn form: INJ, Q2H, Dosing Weight 109, kg, Start date: 10/13/12 8:00:00, Duration: 2 doses or times, Stop date: 10/13/12 10:00:00, For Mg = 1.5 - 1.7 mg/dLFor Mg = 1.5 - 1.7 mg/dL AMIODarone No Belgin 200 mg, 1 Memoria 8-17 [...] yoselin 8-16 Monisha mL, Route: l 18:38: Fitzgerald IV, Drug Gabriela nn form: INJ, Q8H, Dosing Weight 109, kg, PRN Nausea, Start date: 10/12/12 13:38:00, Duration: 30 day, Stop date: 11/11/12 13:37:00 Neutra-Phos No Robert 2 pkt, Yoav yoselin oral powder 16 Chibueze Route: NG, l 17:00: Osuagwu Drug Form: Herm billie 00 PDR/REC, Dosing Weight 109, kg, Q6H, Start date: 10/12/12 12:00:00, Duration: 30 day, Stop date: 11/11/12 6:00:00 OXYcodone 5 No Casa 5 mg, 1 Memoria mg 8-16 r Ashkan tab, l immediate 15:11: Goodenough Route: NG, Aric release 00 Drug form: TAB, Q6H, Dosing [...] 8-16 Laxamana Route: l 10:39: Sagun IVPB, Aric 00 ONCE, Dosing Weight 109, kg, Start date: 10/12/12 5:39:00, Duration: 1 doses or times, Stop date: 10/12/12 5:39:00, For PO4 = 2 - 2.4 mg/dLFor PO4 = 2 - 2.4 mg/dL magnesium 2012- No Kia Moira 2 gm, 50 Memoria sulfate 8-16 Holihan mL, Route: l 10:39: IVPB, Drug Aric 00 form: INJ, ONCE, Dosing Weight 109, kg, Total dose = 2 gm, Start date: 10/12/12 5:39:00, Duration: 1 doses or times, Stop date: 10/12/12 5:39:00 metoprolol 2012- No Preet 25 mg, 1 Mem oria tartrate 8-16 Laxamana tab, l 05:00: Sagun Route: PO, Arben n 00 Drug form: TAB, Q6H, Dosing Weight 109, kg, Start date: 10/12/12 0:00:00, Stop date: 11/10/12 18:00:00 hydrALAZINE 2012-0 No Cameron 10 mg, 0.5 Memoria 8-15 Darrell mL, Route: l 22:05: Yinka IV, Drug Gabriela nn form: INJ, Q4H, Dosing Weight 109, kg, PRN See Nurse's Notes, Start date: 10/11/12 17:05:00, Duration: 30 day, Stop date: 11/10/12 17:04:00, SBP > 160 Ancef No Norberto 2 gm, 50 Yoav yoselin 8-15 Newcomer mL, Route: l 20:00: Sandi IVPB, Drug Herm billie 00 form: INJ, ABXQ8H, Dosing Weight 109, kg, Start date: 10/11/12 15:00:00, Duration: 1 day, Stop date: 10/12/12 7:00:00 Lovenox No Mathieu Les 30 mg, 0.3 Memoria 8-15 mL, Route: l 14:39: SUB-Q, Aric 00 Drug form: INJ, Q12H, Dosing Weight 109, [...] 15 mL, l phate + 11:25: Route: [place] Sodium IVPB, Chloride ONCE, 0.9% IV 250 Dosing mL Weight 109, kg, Start date: 10/11/12 6:25:00, Duration: 1 doses or times, Stop date: 10/11/12 6:25:00, For PO4 = 2 - 2.4 mg/dL; Administer when K level > 3.9mEq/L. 3.9mEq/L. Dextrose No Robert 25 gm, 50 Yoav yoselin 50% Syringe 8-15 Chibueze mL, Route: l 11:08: Osuagwu IVP, Drug Gabriela nn 00 Form: INJ, Dosing Weight 109, kg, PRN, PRN Abnormal Lab Result, Start date: 10/11/12 6:08:00, Duration: 30 day, Stop date: 11/10/12 6:07:00, For FSBG For FSBG < 40mg/dL Insulin No Robert 15 unit, Memori a regular 8-15 Chibueze 0.15 mL, l 11:08: Osuagwu Route: Aric 00 SUB-Q, Drug form: SOLN, PRN, Dosing Weight 109, kg, PRN Abnormal Lab Result, Start date: 10/11/12 6:08:00, Duration: 30 day, Stop date: 11/10/12 6:07:00, for FSBG > 250mg/dL 250mg/dL sodium No Kia Moira 15 mmol, M emoria glycerophos 8-15 Holihan 15 mL, l phate + 10:31: Route: [place] Sodium 00 IVPB, Chloride ONCE, 0.9% IV [...] On l 0.9% 07:11: Lim call for [place] (titrate) 00 use with 250 mL blood product administra tion, Dosing Weight 109, kg, Route: IV, Total Volume: 250, Duration: 30 day, Stop date: 11/10/12 2:10:00, Replace Every: 8 hr simethicone No Lalo 20 mg, 0.3 Memoria 8-15 Gottig mL, Route: l 04:07: Maggin PO, Drug Aric 00 form: DROP, Q6H, Dosing Weight 109, kg, PRN Gas, Start date: 10/10/12 23:07:00, Duration: 30 day, Stop date: 11/09/12 23:06:00 Phenergan 2013-0 No Lalo 12.5 mg, Me moria 8-15 Gottig 0.5 mL, l 03:39: Maggin Route: [place] 00 IVPB, Drug form: INJ, ONCE, Dosing [...] or times, Stop date: 10/10/12 17:49:00 metoprolol No Preet 25 mg, 1 Mem oria tartrate 10-10 Laxamana tab, l 17:26: Sagun Route: NG, Arben n 00 Drug form: TAB, Q8H, Dosing Weight 109, kg, Start date: 10/10/12 12:26:00, Duration: 30 day, Stop date: 11/09/12 8:00:00 tramadol No Ezio W 50 mg, 1 Me moria 10-10 Bogomolny tab, l 17:00: Route: PO, [place] Drug form: TAB, Q6H, Dosing Weight 109, kg, Start date: 10/10/12 12:00:00, Stop date: 11/09/12 6:00:00 Dulcolax No Ramona 10 mg, 1 M emoria Laxative 10-10 Monisha supp, l 14:15: Fitzgerald Route: AR, stephenson 00 Drug form: SUPP, Daily, Start date: 10/10/12 9:15:00, Duration: 30 day, Stop date: 11/09/12 9:00:00 Trilipix No Robert 135 mg, 1 Yoav yoselin 10-10 Chibueze cap, l 14:00: Osuagwu Route: PO, Herm billie Drug form: CAP, Daily, Dosing Weight 109, kg, Start date: 10/10/12 9:00:00, Stop date: 11/08/12 9:00:00 metoprolol 0 No Tho 5 mg, Memor ia 5 mg/5 ml 10-10 Donnie Route: IV, l INJ 10:17: Zuhair ONCE, [place] Dosing Weight 109, kg, Start date: 10/10/12 5:17:00, Stop date: 10/10/12 5:17:00 metoprolol 0 No Ramona 5 mg, 5 Memoria 5 mg/5 ml 8-14 Monisha mL, Route: l INJ 04:05: Fitzgerald IVP, Drug Herm form: INJ, ONCE, Dosing Weight 109, kg, Start date: 10/09/12 23:05:00, Stop date: 10/09/12 23:05:00 metoprolol 2012-0 No Tho 5 mg, 5 Mem oria 5 mg/5 ml 8-14 Donnie mL, Route: l INJ 03:20: Zuhair IV, Drug [place] 00 form: INJ, ONCE, Dosing Weight 109, [...] Mims mL, Route: l mg/15 mL 02:00: Pope PO, Drug stephenson oral liquid 00 form: LIQ, Q12H, Dosing Weight 109, kg, Start date: 10/09/12 21:00:00, Duration: 30 day, Stop date: 11/08/12 9:00:00 metoprolol 0 No Tho 5 mg, 5 Mem oria 5 mg/5 ml 8-14 Donnie mL, Route: l INJ 01:54: Zuhair IV, Drug form: INJ, ONCE, Dosing Weight 109, kg, Start date: 10/09/12 20:54:00, Stop date: 10/09/12 20:54:00 pantoprazol 2012-0 No Preet 40 mg, Yoav yoselin e 10-09 Laxamana Route: l 21:30: Sagun IVP, Drug Aric 00 form: INJ, Before Dinner, Dosing Weight 113.636, kg, Start date: 10/09/12 16:30:00, Duration: 30 day, Stop date: 11/07/12 16:30:00 metoprolol No Preet 5 mg, 5 Yoav yoselin 5 mg/5 ml 10-09 Laxamana mL, Route: l INJ 21:00: Sagun IVP, Drug form: INJ, Q8H, Dosing Weight 109, kg, Start date: 10/09/12 16:00:00, Duration: 30 day, Stop date: 11/08/12 8:00:00 heparin No Mathieu Beckero 5,000 Mem oria 10-09 unit, 1 l 21:00: mL, Route: Aric 00 SUB-Q, Drug form: INJ, Q8H, Dosing Weight 109, kg, Start date: 10/09/12 16:00:00, Duration: 30 day, Stop date: 11/08/12 8:00:00 Tylenol No Casa 975 mg, 3 Memoria 10-09 r Ashkan tab, l 21:00: Goodenough Route: PO, H erm Drug form: TAB, Q8H, Dosing Weight 109, kg, Start date: 10/09/12 16:00:00, Duration: 30 day, Stop date: 11/08/12 8:00:00 aspirin No Casa 325 mg, 1 Memoria 10-09 r Ashkan tab, l 20:28: Goodenough Route: PO, H erm Drug form: TAB, Daily, Dosing Weight 109, kg, Start date: 10/09/12 15:28:00, Duration: 30 day, Stop date: 11/08/12 9:00:00 bacitracin No Mathieu Beckero 1 appl, Memoria topical 10-09 Route: l 19:35: TOP, Aric 00 Daily, Drug form: OINT, PRN Wound Care, Start date: 10/09/12 14:35:00, Duration: 30 day, Stop date: 11/08/12 14:34:00 OXYcodone 5 No Ezio W 5 mg, 1 Memoria mg 10-09 Bogomolny tab, l immediate 17:00: Route: PO, He rmann release 00 Drug form: TAB, Q6H, Dosing [...] tab, PO, l oral 16:28: Daily, 30 [place] enteric 38 tab, coated Substituti tablet on [...] 10-09 tab, PO, l 16:26: Daily, 30 [place] 35 tab, Substituti on Allowed, TAB aspirin Yes Substituti Yoav yoselin 10-09 on Allowed l 16:26: Aric 24 atorvastati No 40 mg, 1 Me [...] PO, l mg oral 16:25: BID, 60 Aric tablet 04 tab, Substituti on Allowed, TAB lisinopril No 10 mg, 1 Mem oria 10 mg oral 10-09 tab, PO, l tablet 16:24: Daily, 30 Arben n 32 tab, Substituti on Allowed, TAB bisacodyl No Dot A. 10 mg, 1 Memoria 10-09 Oconnor supp, l 15:50: Route: AR, Aric Drug form: SUPP, ONCE, Dosing Weight 109, kg, PRN Constipati on, Start date: 10/09/12 10:50:00 docusate No Dot A. 100 mg, Memoria 10-09 Oconnor Route: AR, l 14:00: Daily, Aric 00 Dosing Weight 109, kg, Start date: 10/09/12 9:00:00, Duration: 30 day, Stop date: 11/07/12 9:00:00 bisacodyl No Ramona 10 mg, 2 Memoria 10-09 Monisha tab, l 14:00: Fitzgerald Route: AR, [facility] Drug form: ECTAB, Daily, Dosing Weight 113.636, kg, Start date: 10/09/12 9:00:00, Duration: 30 day, Stop date: 11/07/12 9:00:00 pneumococca No SYSTEM 0.5 ml, M emoria l 23-valent 10-09 SYSTEM Route: IM, l vaccine 14:00: Drug Form: INJ, Daily, Start date: 10/09/12 9:00:00, Duration: [...] No Dot 6 unit, Yoav yoselin regular 8-13 Billie Oconnor 0.06 mL, l 10:22: Route: Aric 00 SUB-Q, Drug form: SOLN, PRN, Dosing Weight 109, kg, PRN Abnormal Lab Result, Start date: 10/09/12 5:22:00, Duration: 30 day, Stop date: 11/08/12 5:21:00, For FSBG 141mg/dL - 160mg/dLFo r FSBG 141mg/dL - 160mg/dL Lovenox 2012-0 No Casa 30 mg, 0.3 Memoria - r Ashkan mL, Route: l 09:00: Sherifugh SUB-Q, Gabriela nn 00 Drug form: INJ, [id number], Dosing Weight 109, kg, Start date: 10/09/12 4:00:00, Duration: 30 day, Stop date: 11/07/12 16:00:00 docusate 2012-0 No Casa 100 mg, 10 Memoria - r Ashkan mL, Route: l 02:00: Tyree NG, Drug Her stephenson 00 form: LIQ, Q12H, Dosing Weight 113.636, kg, Start date: 10/08/12 21:00:00, Stop date: 11/07/12 9:00:00 magnesium 2012-0 No Abran 2 gm, Memori a sulfate 10-08 Mims Route: l 23:44: Pope IVPB, Drug Gabriela nn 00 form: SOLN, ONCE, Dosing Weight 109, kg, Start date: 10/08/12 18:44:00, Duration: 1 doses or times, Stop date: 10/08/12 18:44:00, For Mg = 1.8 - 2 mg/dLFor Mg = 1.8 - 2 mg/dL magnesium 2012-0 No Ramona 2 gm, 50 Memoria sulfate 10-08 Monisha mL, Route: l 23:00: Fitzgerald IVPB, Drug Her stephenson 00 form: INJ, Q2H, Dosing Weight 113.636, kg, Start date: 10/08/12 18:00:00, Duration: 2 doses or times, Stop date: 10/08/12 20:00:00, For Mg = 1.5 - 1.7 mg/dLFor Mg = 1.5 - 1.7 mg/dL normal No Preet 1,000 mL, Memori a saline 0.9% 10-08 Laxamana Rate: 75 l IV 1,000 mL 22:35: Sagun ml/hr, Her stephenson 00 Infuse over: 13.3 hr, Route: IV, Dosing Weight 113.636 kg, Total Volume: 1,000, Start date: 10/08/12 17:35:00, Duration: 30 day, Stop date: 11/07/12 17:34:00 lidocaine-e No Gavin M 20 ml, Jovany salinas 10-08 Aamir Route: l [id number] 21:40: MISC, Drug Aric Form: SOLN, Dosing Weight 113.636, kg, ONCE, Start date: 10/08/12 16:40:00, Stop date: 10/08/12 16:40:00 Saline No Ramona 5 ml, Memori a Flush 0.9% 10-08 Monisha Route: l 21:01: Fitzgerald IVP, Drug Herm billie Form: INJ, Dosing Weight 113.636, kg, PRN, PRN Line Flush, Start date: 10/08/12 16:01:00, Duration: 30 day, Stop date: 11/07/12 16:00:00 midazolam No Preet IV, Start Mem oria 50 mg 10-08 Laxamana date: l 20:59: Sagun 10/08/12 [place] 00 15:59:00, Duration: 30, 50 ml, 113.636 Sublimaze No Robert IV, Start Mem oria 1,000 10-08 Chibueze date: l microgram 20:58: Osuagwu 10/08/12 H ermann 00 15:58:00, Duration: 30, 20 ml, 113.636 FENTanyl No Ramona 1,000 Yoav yoselin 1000 mcg in 10-08 Monisha microgram, l 20 mL 20:56: Fitzgerald 20 mL, Arben n (titrate) 00 Rate: IV 1,000 Titrate as microgram directed, Dosing Weight 113.636, kg, Route: IV, Total Volume: 20 ml, Duration: 30 day, Stop date: 11/07/12 15:55:00, Replace Every: 24 hr Versed 50 0 No Ramona 50 mg, 50 Memoria mg in NS 50 8-12 Monisha mL, Rate: l ml 20:55: Fitzgerald Titrate as Her stephenson (titrate) 00 directed, IV 50 mg Dosing Weight 113.636, kg, Route: IV, Total Volume: 50 ml, Duration: 30 day, Stop date: 11/07/12 15:54:00, Replace Every: 24 hr FENTanyl No Ramona 1,000 Yoav yoselin 1000 mcg in 812 Monisha microgram, l 20 mL 20:39: Fitzgerald 20 mL, Arben n (titrate) 00 Rate: IV 1,000 Titrate as microgram directed, Dosing Weight 113.636, kg, Route: IV, Total Volume: 20 ml, Duration: 30 day, Stop date: 11/07/12 15:38:00, Replace Every: 24 hr Versed 50 0 No Ramona 50 mg, 50 Memoria mg in NS 50 8-12 Monisha mL, Rate: l ml 20:39: Fitzgerald Titrate as Her stephenson (titrate) 00 directed, IV 50 mg Dosing Weight 113.636, kg, Route: IV, Total Volume: 50 ml, Duration: 30 day, Stop date: 11/07/12 15:38:00, Replace Every: 24 hr Omnipaque No Hemanth G 225 mL, Memoria 350mg/ml 10-08 [facility] Route: l 19:24: IVP, Drug Form: SOLN, [...] Memoria 10-08 Kozar ONCE, l 16:40: Dosing [place] Weight 113.636, kg, Start date: 10/08/12 11:40:00, Stop date: 10/08/12 11:40:00 Versed No Marli A 3 mg, Yoav yoselin 10-08 Kozar Route: l 16:40: IVP, ONCE, Dosing Weight 113.636, kg, Priority: STAT, Start date: 10/08/12 11:40:00, Stop date: 10/08/12 11:40:00 Versed 50 No Ramona 50 mg, 50 Memoria mg in NS 50 8-12 Monisha mL, Rate: l ml 16:38: Fitzgerald Titrate as Her stephenson (titrate) 00 directed, IV 50 mg Dosing Weight 113.636, kg, Route: IV, Total Volume: 50 ml, Duration: 30 day, Stop date: 11/07/12 11:37:00, Replace Every: 24 hr FENTanyl No Ramona 1,000 Yoav yoselin 1000 mcg in 8-12 Monisha microgram, l 20 mL 16:38: Fitzgerald 20 mL, Arben n (titrate) 00 Rate: IV 1,000 Titrate as microgram directed, Dosing Weight 113.636, kg, Route: IV, Total Volume: 20 ml, Duration: 30 day, Stop date: 11/07/12 11:37:00, Replace Every: 24 hr succinylcho No Hemanth G 150 mg, Memoria line 10-08 Luigi Route: IV, l 16:03: ONCE, Dosing Weight 113.636, kg, Start date: 10/08/12 11:03:00, Stop date: 10/08/12 11:03:00 etomidate No Hemanth G 30 mg, M emoria 10-08 Luigi Route: IV, l 16:02: ONCE, Dosing Weight 113.636, kg, Start date: 10/08/12 11:02:00, Stop date: 10/08/12 11:02:00 Saline No Marli A 5 ml, Yoav yoselin Flush 0.9% 10-08 Route: l 15:22: IVP, Drug Form: INJ, kg, PRN, PRN Line Flush, Administer at least once every 12 hours, Start date: 10/08/12 10:22:00, Duration: 30 day, Stop date: 11/07/12 10:21:00 pneumococca No SYSTEM 0.5 ml, M emoria l 23-valent 8-02 SYSTEM Route: IM, l vaccine 14:00: Drug Form: Herm billie 00 INJ, Start date: 09/29/11 9:00:00, Stop date: 09/29/11 9:00:00 Vital Signs Vital Name Observation Time Observation Value Comments Source Systolic (mm Hg) 2019-10-07 21:00:00 Yoav [facility] [place] Diastolic (mm Hg) 2019-10-07 21:00:00 [facility] [place] Respitory Rate 2019-10-07 21:00:00 [facility] Heart Rate 2019-10-07 21:00:00 [facility] [place] Temperature Oral (F) 2019-10-07 21:00:00 97.9 F [facility] Systolic (mm Hg) 2019-10-07 17:26:00 Yoav rial [facility] Diastolic (mm Hg) 2019-10-07 17:26:00 [facility] Heart Rate 2019-10-07 17:26:00 [facility] [place] Temperature Oral (F) 2019-10-07 17:26:00 97.7 F [facility] [place] Respitory Rate 2019-10-07 17:26:00 [facility] Systolic (mm Hg) 2019-10-07 14:55:00 Yoav rial [facility] Diastolic (mm Hg) 2019-10-07 14:55:00 [facility] [place] Temperature Oral (F) 2019-10-07 13:13:00 97.6 F [facility] [place] Heart Rate 2019-10-07 13:13:00 [facility] Respitory Rate 2019-10-07 13:13:00 [facility] Temperature Oral (F) 2019-10-07 05:00:00 97.2 F [facility] [place] Heart Rate 2019-10-07 05:00:00 [facility] [place] Respitory Rate 2019-10-07 05:00:00 [facility] Systolic (mm Hg) 2019-10-07 05:00:00 Yoav [facility] [place] Diastolic (mm Hg) 2019-10-07 05:00:00 [facility] [place] Temperature Oral (F) 2019-10-07 01:18:00 98.2 F [facility] Heart Rate 2019-10-07 01:18:00 [facility] [place] Respitory Rate 2019-10-07 01:18:00 [facility] Systolic (mm Hg) 2019-10-07 01:18:00 Yoav rial [facility] Diastolic (mm Hg) 2019-10-07 01:18:00 [facility] Temperature Oral (F) 2019-10-06 21:00:00 98.0 F [facility] Heart Rate 2019-10-06 21:00:00 [facility] Respitory Rate 2019-10-06 21:00:00 [facility] [place] Systolic (mm Hg) 2019-10-06 21:00:00 Yoav rial [facility] Diastolic (mm Hg) 2019-10-06 21:00:00 [facility] [place] Height 2019-10-05 01:03:00 175.26 cm [facility] Weight 2019-10-05 01:03:00 [facility] BMI Calculated 2019-10-05 01:03:00 [facility] Height 2019-10-04 16:42:00 175.26 cm [facility] BMI Calculated 2019-10-04 16:42:00 [facility] [place] Weight 2019-10-04 16:42:00 [facility] [place] Height 2019-09-09 15:08:00 175.26 cm [facility] [place] Weight 2019-09-09 15:08:00 [facility] [place] BMI Calculated 2019-09-09 15:08:00 [facility] Temperature Oral (F) 2012-11-16 01:00:00 98.5 F [facility] Heart Rate 2012-11-16 01:00:00 [facility] [place] Respitory Rate 2012-11-16 01:00:00 [facility] Diastolic (mm Hg) 2012-11-16 01:00:00 [facility] [place] Systolic (mm Hg) 2012-11-16 01:00:00 Yoav [facility] Heart Rate 2012-11-15 13:07:00 [facility] [place] Temperature Oral (F) 2012-11-15 13:07:00 98.2 F [facility] Systolic (mm Hg) 2012-11-15 13:07:00 Yoav [facility] [place] Diastolic (mm Hg) 2012-11-15 13:07:00 [facility] [place] Respitory Rate 2012-11-15 13:07:00 [facility] Diastolic (mm Hg) 2012-11-15 01:10:00 [facility] [place] Systolic (mm Hg) 2012-11-15 01:10:00 Yoav [facility] Respitory Rate 2012-11-15 01:10:00 [facility] Heart Rate 2012-11-15 01:10:00 [facility] [place] Temperature Oral (F) 2012-11-15 01:10:00 98.4 F [facility] [place] Height 2012-10-27 14:28:00 172.72 cm [facility] Weight 2012-10-27 14:28:00 [facility] Height 2012-10-27 03:46:00 177.8 cm [facility] [place] Temperature Oral (F) 2012-10-27 01:15:00 99.0 F [facility] [place] Systolic (mm Hg) 2012-10-27 01:15:00 Yoav [facility] [place] Respitory Rate 2012-10-27 01:15:00 [facility] [place] Diastolic (mm Hg) 2012-10-27 01:15:00 [facility] Heart Rate 2012-10-27 01:15:00 [facility] Diastolic (mm Hg) 2012-10-26 20:00:00 [facility] [place] Temperature Oral (F) 2012-10-26 20:00:00 98.6 F [facility] [place] Heart Rate 2012-10-26 20:00:00 [facility] Respitory Rate 2012-10-26 20:00:00 [facility] Systolic (mm Hg) 2012-10-26 20:00:00 Yoav [facility] [place] Heart Rate 2012-10-26 16:00:00 [facility] [place] Systolic (mm Hg) 2012-10-26 16:00:00 [facility] [place] Diastolic (mm Hg) 2012-10-26 16:00:00 [facility] [place] Respitory Rate 2012-10-26 16:00:00 [facility] Temperature Oral (F) 2012-10-26 12:00:00 99.2 F [facility] Weight 2012-10-08 22:56:00 [facility] [place] Height 2012-10-08 22:56:00 177.8 cm [facility] Height 2012-10-08 15:24:00 167.64 cm [facility] Weight 2012-10-08 15:24:00 [facility] Procedures Procedure Date / Time Performed Performing Clinician [facility] e [id number] 2019-10-18 00:00:00 ENCPL 77916U2 2019-10-18 00:00:00 ENCPL 95970O8 2019-10-18 00:00:00 ENCPL 69000R1 2019-10-18 00:00:00 ENCPL 29701F4 2019-10-18 00:00:00 ENCPL 85953E7 2019-10-18 00:00:00 ENCPL 31926Y2 2019-10-18 00:00:00 ENCPL 56519P1 2019-10-18 00:00:00 ENCPL 86880D2 2019-10-18 00:00:00 ENCPL 39427N0 2019-10-18 00:00:00 ENCPL 32429O1 2019-10-18 00:00:00 ENCPL 02989B8 2019-10-18 00:00:00 ENCPL 95664O3 2019-10-18 00:00:00 ENCPL 0HBRXZZ 2019-10-11 00:00:00 ENCPL [...] Open reduction and 2011-10-09 05:00:00 Me morial [place] internal fixation of fracture CABG x 2 - Coronary [facility]son artery bypass grafts x 2 Finger operation Mary Theodore n ORIF - Open reduction and [facility] internal fixation of fracture CABG x 2 - Coronary [facility] [place] artery bypass grafts x 2 Finger operation Mary Theodore n Plan of Care Planned Activity Planned Date Details Comments Source Future Scheduled 2027-12-01 COLONOSCOPY SCREENING [place] [facility] 00:00:00 [code = COLONOSCOPY SCREENING] Future Scheduled 2019-10-29 [place]ACCINE [place] [facility] 00:00:00 [code = INFLUENZA VACCINE] Future Scheduled 2019-10-29 INFLUENZA VACCINE (#1) [facility] 00:[facility]:00 [code = INFLUENZA Medical Ce nter VACCINE (#1)] Future Scheduled 2012-11-[address] [facility] Test 00:00:00 WELLNESS (YEAR 2 or [facility] FIRST YEAR if no IPPE) [code = MEDICARE ANNUAL WELLNESS (YEAR 2 or FIRST YEAR if no IPPE)] Future Scheduled 2011-12-23 65+ PNEUMOCOCCAL [place] [facility] 00:00:00 VACCINE (1 of 1 - PPSV23) [code = 65+ PNEUMOCOCCAL VACCINE (1 of 1 - PPSV23)] Future Scheduled 2011-12-23 PNEUMOCOCCAL [address] - Test 00:00:00 LOW/MEDIUM RIS[facility] 2 - PCV13) [code = PNEUMOCOCCAL 65+ LOW/MEDIUM RISK (1 of 2 - PCV13)] Future Scheduled 1996 SHINGLES VACCINES (#1) [place] [facility] 00:00:00 [code = SHINGLES VACCINES (#1)] Future Scheduled 1956 DIABETIC FOOT EXAM [place] [facility] 00:00:00 [code = DIABETIC FOOT EXAM] Future Scheduled 1956 URINE MICROALBUMIN [place] [facility] 00:00:00 [code = URINE MICROALBUMIN] Future Scheduled 1946 DIABETIC RETINAL EYE [place] [facility] 00:00:00 EXAM [code = DIABETIC RETINAL EYE EXAM] Future Scheduled [address] [facility] - Test 00:00:00 malignant neoplasm of [facility] colon (procedure) [code = 316704374] Encounters Start End Encounter Admission Attending Care Care Encounter Source Date/Time Date/Time Type Type Clinicians Facility Department ID 2019-11-15 2019-11-15 Jaky Roman MEANUSHA [id number] 00:00:00 00:00:00 Ken Dawkins [id number] [place] 4.2.7.2.686 Professio [phone] [place] [address] Office [facility] 2019-11-14 2019-11-14 Jaky Roman MEANUSHA [id number] 00:00:00 00:00:00 Ken Dawkins [id number] [place] 4.2.7.2.686 Professio [phone] [place] [address] Office [facility] 2019-11-07 2019-11-07 Jaky Roman MEANUSHA [id number] 00:00:00 00:00:00 Ken [facility] [id number] [place] [id number] Professio [phone] [place] [address] Office [facility] 2019-11-05 2019-11-05 Orders Doctor CELY [id number] 00:00:00 00:00:00 Only Unassigned, EMILY 350.1.13.10 [place] [facility] 4.2.7.2.686 [phone] [id number] 2019-11-05 2019-11-05 Jaky Roman MEANUSHA [id number] 00:00:00 00:00:00 Ken [facility] [id number] [place] [id number] Professio [phone] [place] [address] Office [facility] 2019-10-31 2019-10-[address] [facility] [id number] 08:56:21 09:11:21 Visit Ken Murray 350.1.13.10 [place] 4.2.7.2.686 Professio [phone] [address] 2019-10-29 2019-10-29 Orders Doctor CELY [id number] 00:00:00 00:00:00 Only Unassigned, EMILY 350.1.13.10 [place] [facility] 4.2.7.2.686 [phone] [id number] 2019-10-25 2019-10-25 Outpatient CYDNEY MCNAMARA ENCGEN [id number] ENCGEN 00:00:00 00:00:00 ADMISSION KEN 2019-10-04 2019-10-07 Outpatient [place], [place] [id number] 11:41:34 19:00:00 Jaquan 2019-10-04 2019-10-04 Outpatient [place], PL PL [id number] 11:41:34 11:41:34 Jaquan 2019-10-04 2019-10-04 Inpatient E MHBL MED [id number] MHBL 13:39:00 11:41:00 2019-09-10 2019-09-10 Outpatient Gene [facility] MHPL [id number] 09:02:00 23:59:00 Hemalatha 00 Anne 2019-09-10 2019-09-10 [...] code = MCH) 31.0 pg 27.0-31.0 [facility] LxassgtYOVUYPQFTR5895-12-31 10:03:0034.3[facility]annHEMATOLOGY 2019-10-07 10:03:0016.3[facility] LzisjauLGYRYYSLXK9656-79-29 10:03:70158Rccsvbpq QlinrdfYLKINMYKLB9874-72-84 10:03:007.5[facility] HermannCHEM QRXFY9919-08-44 13:34:60617Omtkwvjp HermannCHEM ZMYBP3336-08-64 13:34:66288Exmtkqmv HermannCHEM AZBTB9765-59-70 13:34:003.11[facility] HermannCHEM UBBOG4798-49-49 13:34:30627 [facility]annCHEM HGKZP3580-06-80 13:34:003.4[facility] HermannCHEM PANEL 2019-10-06 13:34:0098[facility] HermannCHEM UQDWZ9335-13-64 13:34:0028[facility] HermannCHEM LFJDD5513-93-94 13:34:0010.4[facility] HermannCHEM QNTUO9855-65-74 13:34:008.5[facility] HermannCHEM EVBMN8727-07-53 13:34:00 Test Item Value Reference Range Interpretation Comments B/C Ratio (test code = B/C Ratio) 37 1 6-25 [facility]annCHEM NMECC1788-29-75 13:34:005.9[facility] HermannCHEM PANEL 2019-10-06 13:34:001.5[facility] HermannCHEM KLAJV4899-68-10 13:34:004.4[facility] HermannCHEM SEFVA5574-61-03 13:34:00 Test Item Value Reference Range Interpretation Comments A/G Ratio (test code = A/G Ratio) 0.3 1 0.7-1.6 [facility]annCHEM QJPWD2041-11-73 13:34:0015[facility] HermannCHEM PANEL 2019-10-06 13:34:0024[facility] HermannCHEM FQVIT8775-53-61 13:34:00<10[facility] HermannCHEM PNCHZ4895-42-14 13:34:002.1[facility] HermannCHEM GTFQE4040-66-70 13:34:0019[facility] HermannCHEM RQWCS2381-06-75 13:34:001.8[facility] HermannCHEM FBAZM3022-18-64 13:34:004.1[facility] HdgcexkHAHMVAOMLK9339-42-10 13:34:0010.5 [facility] AvszuaeQXVQSERSSZ9068-63-92 13:34:002.97[facility] HermannHEMATOLOGY 2019-10-06 13:34:009.1[facility] YhhbuquPWVVRXIMMS5900-97-31 13:34:0026.8[facility] PmkomrqPLZCBMMBQX1565-45-69 13:34:0090.3[facility] DznvrkzYPSBELOXON9536-99-18 13:34:00 Test Item Value Reference Range Interpretation Comments MCH (test code = MCH) 30.5 pg 27.0-31.0 [facility] JkwvsreUVSTUVZYTH0167-66-41 13:34:0033.8[facility] HermannHEMATOLOGY 2019-10-06 13:34:0016.3[facility] YovmlpgKYEVWZJSPT7002-55-71 13:34:44345Uuueyudl HmcszwuZJWWUZVMFT3556-82-22 13:34:008.0[facility] YfeiwhqYIJPMBRYCT7187-95-83 13:34:0077.3[facility] UeazlikVERJAIOFAB3253-32-46 13:34:0011.4[facility] HZDUHKCOKA1308-12-82 13:34:008.1[facility] QyrsokkKXMFHBTIIP0463-72-38 13:34:002.2 [facility] EodkdjrHEILDBQLYN2165-35-40 13:34:001.0[facility] HermannHEMATOLOGY 2019-10-06 13:34:008.1[facility] XjgrydjPOWVXOPPHV6646-11-54 13:34:001.2[facility] GjopekeEBLFCMMINZ6959-77-87 13:34:000.8[facility] LphowuiLVLCCLPPUY2795-48-13 13:34:000.2[facility] ZfrozfyHQJVRRGIXO6382-01-89 13:34:000.1[facility] HermannBLOOD BANK KMOQVYE7694-30-84 04:35:57Product available 4(10/05/19 11:35 PM)[facility] WpcihmqZZVLVICBWE8354-01-30 03:20:0011.5[facility] AnkggqfSZOPPJVXUQ4359-38-72 03:20:002.57[facility] OoixgojPVBLVJQCZV7614-53-42 03:20:007.8[facility] JPCNXFFKZS3713-41-03 03:20:0023.1[facility] TxrxbpuSGBUEXXVAT3263-60-66 03:20:00 90.2[facility] WcsuttjKWWTQEJDDG6648-93-61 03:20:00 Test Item Value Reference Range Interpretation Comments MCH (test code = MCH) 30.2 pg 27.0-31.0 [facility] QzofnepOAHCDJCNWA9187-65-19 03:20:0033.5[facility] HermannHEMATOLOGY 2019-10-06 03:20:0016.6[facility] ZjaauieNDKNQOJBCT3471-15-22 03:20:15998Ifswhwbe TudwsgpBZPOGTCFTB1071-17-25 03:20:007.8[facility] QfnfouvYKZJMPELGH4960-31-40 03:20:0080.2[facility] KtdtnxxKZHRGZILWQ4199-53-49 03:20:009.9[facility] MDORSTPQMZ6915-32-08 03:20:007.0[facility] ZhkimptKFKAEBMAVD5318-62-63 03:20:001.8 [facility] AdsiqhnVDKKPYCWVQ5400-59-77 03:20:001.1[facility] HermannHEMATOLOGY 2019-10-06 03:20:009.2[facility] RdxknwfXELMDVCAGT4591-53-94 03:20:001.1[facility] OssrpmyCOOCKHMQHK8927-04-17 03:20:000.8[facility] WnngvxkKTEXQXMIMC4960-25-78 03:20:000.2[facility] FzlhpptSTEAZDUTJU5958-61-86 03:20:000.1[facility]annBLOOD BANK RAYQNEJ1913-72-65 19:07:39Product available 5(10/05/19 2:07 PM)[facility] ZjsqskuZFZEBAFHVU1241-99-03 18:06:007.6[facility] AumpftmKNUJVDMVJM6156-34-77 18:06:0022.4[facility] HermannCARDIAC AEAJVYL0350-97-81 15:03:00<1.0[facility] HermannCARDIAC DENTQTV7346-48-22 15:03:0018[facility] HermannCARDIAC ENZYMES 2019-10-05 15:03:000.27[facility] HermannCARDIAC NMPYBIM2628-94-93 15:03:00<5.6 [facility]BL[facility] B[facility] ATQLSJK3501-60-29 12:30:24Product available 6(10/05/19 7:30 AM)[facility] HermannCARDIAC FPVJAZE7019-14-04 11:05:000.28[facility] [place] [facility] CHEM RLANI6539-87-66 11:05:71716Cqbrrjrj HermannCHEM UNVLW3814-59-41 11:05:32008 [facility] HermannCHEM GQWTZ4191-26-24 11:05:003.07[facility] HermannCHEM PANEL 2019-10-05 11:05:07434Maajrovn HermannCHEM WVCIV2118-19-02 11:05:003.5[facility] HermannCHEM GRFSC1170-92-79 11:05:96632Qlfxccfu HermannCHEM TJYCJ7997-57-44 11:05:0027[facility] HermannCHEM QHUWP4996-52-25 11:05:0011.5[facility] HermannCHEM PUFCU1034-28-23 11:05:007.9[facility] HermannCHEM VFSJJ3973-33-84 11:05:00 Test Item Value Reference Range Interpretation Comments B/C Ratio (test code = B/C Ratio) 35 1 6-25 [facility]annCHEM JSYXX5566-02-80 11:05:005.3[facility] HermannCHEM PANEL 2019-10-05 11:05:001.4[facility] HermannCHEM AKIUL7772-61-12 11:05:003.9[facility] HermannCHEM SJMHY0358-25-63 11:05:00 Test Item Value Reference Range Interpretation Comments A/G Ratio (test code = A/G Ratio) 0.4 1 0.7-1.6 [facility]annCHEM PKRSL6785-26-15 11:05:0017[facility] HermannCHEM PANEL 2019-10-05 11:05:0023[facility] HermannCHEM TIOUF2091-00-26 11:05:00<10[facility] HermannCHEM ZVIOL6400-76-98 11:05:002.4[facility] HermannCHEM WSZPM4172-71-93 11:05:0019[facility] HermannCHEM ZLGHB5224-93-25 11:05:001.8[facility] [place] [facility] VQZCITNFUN8934-35-52 11:05:0077.2[facility] LsjrvtoZAAVJGIHLC9891-93-76 11:05:00 13.1[facility] KfiuvtyRVELNXVTKN8554-40-39 11:05:007.0[facility] HermannHEMATOLOGY 2019-10-05 11:05:001.5[facility] RfvvtirKYXMTPFXTW0281-42-45 11:05:001.2[facility] DsfgzcuSPKLUOBPOJ7599-84-31 11:05:007.2[facility] QufndnqHBVBJPQMQO7883-11-55 11:05:001.2[facility] MwodsghDDOFKMKZFC2738-12-47 11:05:000.7[facility] [place] GOFSHSTXHW5426-99-81 11:05:000.1[facility] MotqtapZHVRVNJMDV0820-17-44 11:05:000.1 [facility] WjhckimFBNJFTWKDT2484-23-18 11:05:009.4[facility] HermannHEMATOLOGY 2019-10-05 11:05:002.07[facility] BitkpwlGBHKPPXSSI1139-88-68 11:05:0092.5[facility] DlcfdsiLLPIEUYUPJ5251-42-02 11:05:00 Test Item Value Reference Range Interpretation Comments MCH (test code = MCH) 31.4 pg 27.0-31.0 [facility] JtaghibWPBBTCLSUO0189-98-44 11:05:0034.0[facility] HermannHEMATOLOGY 2019-10-05 11:05:0016.2[facility] TccydomUEYVXXLVZX4961-38-80 11:05:01245Vtzndaum NrhskboWHKDTKDAEH5243-92-12 11:05:008.0[facility] KpjbxhsVNJRZEILZZ5129-83-99 05:45:00Not Detected (10/05/19 12:45 AM)[facility] HermannCARDIAC FLJIAIP7910-78-30 01:22:000.31[facility] HermannCARDIAC ACKYEIM2357-97-71 01:22:57610Smqikemo HermannURINE AND AQTBE2083-71-76 18:39:00Yellow *NA*(10/04/19 1:39 PM)[facility]annURINE AND UBTVX3725-76-81 18:39:00Clear (10/04/19 1:39 PM)[facility] URINE AND YMIAP8821-11-97 18:39:00 Test Item Value Reference Range Interpretation Comments UA Spec Grav (test code = UA Spec 1.008 1 Grav) [facility]annURINE AND TQXGZ1711-76-08 18:39:00 Test Item Value Reference Range Interpretation Comments UA pH (test code = UA pH) 5.0 1 5.0-8.0 [facility] AND CEBBW0819-90-05 18:39:00Negative *NA*(10/04/19 1:39 PM) [facility] VIFUT8553-80-00 18:39:00Negative (10/04/19 1:39 PM) [facility] AND ASTPG8393-69-57 18:39:00Negative (10/04/19 1:39 PM) [facility] UGJBO0677-77-47 18:39:00Negative (10/04/19 1:39 PM) [facility] AND MIADR5561-22-67 18:39:009[facility]annURINE AND JURVY6791-66-81 18:39:001[facility]annURINE SDRD4302-15-19 18:39:0023.30 [facility] UMYL5419-24-28 18:39:0013.6[facility]UR[facility] CHEM 2019-10-04 18:39:00 Test Item Value Reference Range Interpretation Comments U Prot/Creat (test code = U 0.58 1 Prot/Creat) [facility] WQWL6570-92-65 18:39:23069Zdjmfzgw HermannURINE CHEM 2019-10-04 18:39:0097[facility]annURINE TZDK1259-46-15 18:39:0019.2[facility]annURINE VQVW8443-90-87 18:39:89227Xmtrruwh HermannURINE AND RJWLT3747-56-47 18:16:00Positive *ABN*(10/04/19 1:16 PM)[facility]annBLOOD BANK RESULTS 2019-10-04 17:14:00Negative (10/04/19 12:14 PM)[facility] HermannCHEM PANEL 2019-10-04 17:14:001.4[facility] HermannCHEM TVFUW9508-19-48 17:14:0016[facility] HermannCHEM QCZJE0639-48-96 17:14:0023[facility] HermannCHEM GHLIK3121-40-69 17:14:00 Test Item Value Reference Range Interpretation Comments B/C Ratio (test code = B/C Ratio) 32 1 6-25 [facility]annCHEM DEXXA6990-35-89 17:14:005.5[facility] HermannCHEM PANEL 2019-10-04 17:14:0013[facility] HermannCHEM BCVPO2327-56-48 17:14:002.1[facility] HermannCHEM WVPSJ7331-93-40 17:14:004.1[facility] HermannCHEM DQUXV5764-69-92 17:14:00 Test Item Value Reference Range Interpretation Comments A/G Ratio (test code = A/G Ratio) 0.3 1 0.7-1.6 [facility] HermannCHEM XARKO5708-38-51 17:14:32861Fvfhndsx HermannCHEM PANEL 2019-10-04 17:14:93662Suvhksql HermannCHEM SQUOY9244-45-92 17:14:0099[facility] HermannCHEM TLQZN5924-39-86 17:14:003.14[facility] HermannCHEM ILQLL8327-63-07 17:14:73826Gleuaykp HermannCHEM KTGQN4757-89-11 17:14:003.9[facility] HermannCHEM CHMFD9404-15-84 17:14:0099[facility] HermannCHEM LYQFL6314-30-76 17:14:0026 [facility] HermannCHEM ZANWG5891-46-00 17:14:008.5[facility] HermannCHEM PANEL 2019-10-04 17:14:0012.9[facility] HermannCHEM REJPG6261-56-71 17:14:0019[facility] MozaulzKTIXCOPDJN5800-33-73 17:14:00 Test Item Value Reference Range Interpretation Comments PT (test code = PT) 19.0 s 12.0-14.7 [facility] DyqnvytZTBEYYWBZJ2955-55-00 17:14:00 Test Item Value Reference Range Interpretation Comments INR (test code = INR) 1.58 1 0.85-1.17 [facility]AJWQPTQU0096-34-88 17:14:00 Test Item Value Reference Range Interpretation Comments PTT (test code = PTT) 37.2 s 22.9-35.8 [facility] OhztoswWWJSOQGSDO9525-78-40 14:15:004.7[facility] HermannHEMATOLOGY 2019-09-10 14:15:002.41[facility] OeqvthtWCFXYMQRMB1351-04-24 14:15:007.9[facility] QbfacwlAHEDHGPRBI7492-86-37 14:15:0024.6[facility] RzjxhacYWHJEDQSTO6932-42-93 14:15:64007.8[facility] BbxsbwkOFAZBBQJRB9266-40-73 14:15:00 Test Item Value Reference Range Interpretation Comments MCH (test code = MCH) 32.9 pg 27.0-31.0 [facility] JfkmbkmVAHTNOVKGU4805-89-08 14:15:0032.3[facility] HermannHEMATOLOGY 2019-09-10 14:15:0016.5[facility] TcthafcPSPMXUPPSW2789-93-29 14:15:19880Hxcvzbrd OomqzfcFMZTXAIHFY0161-27-77 14:15:009.1[facility] SxpytznUWPLJYZJAV1314-60-75 14:15:003.2[facility] PbtirirNSBXMWLLHG9342-48-53 14:15:000.9[facility] QTSHEAIPHM4052-91-08 14:15:000.4[facility] UwbzjycIMIQUUPSBZ7187-23-87 14:15:000.2 [facility] RirndleTXBHBNKRWA4916-78-70 14:15:0068.0[facility] HermannHEMATOLOGY 2019-09-10 14:15:000.0[facility] ViwmunuFXQLBYONQZ7916-05-71 14:15:0019.0[facility] QtrwlzwPTOQDJEVVY0029-54-50 14:15:009.0[facility] AlsqvljRSHNRNPASZ9954-25-38 14:15:004.0[facility] AgzolhcGCKAZRGDHM0376-02-01 14:15:000.0[facility] XIZDWBHQKZ8587-75-30 14:15:00Normal (09/10/19 9:15 AM)[facility] HermannHEMATOLOGY 2019-09-10 14:15:00Normal (09/10/19 9:15 AM)[facility] MrlgxykDGADIHAFGE2498-26-58 14:15:004.1[facility] HermannPOCT-GLUCOSE ZPPGX2339-86-16 07:31:00 Test Item Value Reference Range Interpretation Comments POC-GLUCOSE METER 146 mg/dL 70-[address] [facility] 67 ([facility]) (test code = ABDULAZIZ Cameron ERIKA DARBY 1538) [address] [id number] 06:02:00 Test Item Value Reference Range Interpretation Comments MAGNESIUM ([facility]) (test code = 1.6 mg/dL 1.6-2.6 627) BASIC METABOLIC [id number] 06:02:00 Test Item Value Reference Range Interpretation [...] PATIEN TS. CBC W/PLT COUNT & AUTO [id number] 05:15:00 Test Item Value Reference Range Interpretation [...] PERCENT (BEAKER) (test code = 2801) POCT-GLUCOSE [id number] 21:22:00 Test Item Value Reference Range Interpretation Comments POC-GLUCOSE METER 210 mg/dL 70-110 H TESTED AT [place] [address] ([facility]) (test code = ABDULAZIZ [place] 1538) [address] POCT-GLUCOSE [id number] 12:29:00 Test Item Value Reference Range Interpretation Comments POC-GLUCOSE METER 160 mg/dL 70-110 H TESTED AT [place] [address] ([facility]) (test code = ABDULAZIZ [place] 1538) [address] SEZH-[id number] 10:56:00 Test Item Value Reference Range Interpretation Comments ACTIVATED CLOTTING TIME 389 sec TEST ED AT [place] [address] ([facility]) (test code = ABDULAZIZ [place] 441) [address] POCT-GLUCOSE [id number] 08:16:00 Test Item Value Reference Range Interpretation Comments POC-GLUCOSE METER 142 mg/dL 70-110 H TESTED AT [place] [address] (BEAKER) (test code = ADBULAZIZ [place] 1538) [address] [id number] 07:34:00 Test Item Value Reference Range Interpretation Comments MAGNESIUM (BEAKER) (test code = 1.7 mg/dL 1.6-2.6 627) BASIC METABOLIC [id number] 04:55:00 Test Item Value Reference Range Interpretation [...] I S NOT APPLICABLE FOR DIALYSIS PATIEN [id number] 04:25:00 Test Item Value Reference Range Interpretation Comments PARTIAL THROMBOPLASTIN TIME 83.5 seconds 22.5-36.0 H (BEAKER) (test code = 760) CBC W/PLT COUNT & AUTO [id number] 04:18:00 Test Item Value Reference Range Interpretation [...] PERCENT (BEAKER) (test code = 2801) POCT-GLUCOSE [id number] 21:05:00 Test Item Value Reference Range Interpretation Comments POC-GLUCOSE METER 228 mg/dL 70-110 H [facility] [place] [address] [facility] (test code = [facility] 1538) [id number] POCT-GLUCOSE [id number] 17:52:00 Test Item Value Reference Range Interpretation Comments POC-GLUCOSE METER 154 mg/dL 70-[address] [facility] [address] [facility] (test code = [facility] 1538) [id number] POCT-GLUCOSE [id number] 12:41:00 Test Item Value Reference Range Interpretation Comments POC-GLUCOSE METER 160 mg/dL 70-[address] [facility] 67[address] (BEAKER) (test code = [place] [place] 1538) [address] [id number] 09:43:00 Test Item Value Reference Range Interpretation Comments MAGNESIUM (BEAKER) (test code = 1.7 mg/dL 1.6-2.6 627) BASIC METABOLIC [id number] 09:43:00 Test Item Value Reference Range Interpretation [...] S NOT APPLICABLE FOR DIALYSIS PATIEN TS. [id number] 09:34:00 Test Item Value Reference Range Interpretation Comments PARTIAL THROMBOPLASTIN TIME 83.8 seconds 22.5-36.0 H (BEAKER) (test code = 760) CBC W/PLT COUNT & AUTO [id number] 09:22:00 Test Item Value Reference Range Interpretation [...] PERCENT (BEAKER) (test code = 2801) POCT-GLUCOSE [id number] 08:44:00 Test Item Value Reference Range Interpretation Comments POC-GLUCOSE METER 169 mg/dL 70-[address] [facility] 67[address] (BEAKER) (test code = [facility] [place] 1538) [id number] POCT-GLUCOSE [id number] 21:30:00 Test Item Value Reference Range Interpretation Comments POC-GLUCOSE METER 167 mg/dL 70-[address] [facility] 6720 (BEAKER) (test code = ABDUL[facility] [place] [facility] 1538) [id number] POCT-GLUCOSE [id number] 18:39:00 Test Item Value Reference Range Interpretation Comments POC-GLUCOSE METER 138 mg/dL 70-110 H TESTED AT [place] [address] (BEAKER) (test code = ABDULAZIZ Cameron [facility] 1538) [address] POCT-GLUCOSE [id number] 12:06:00 Test Item Value Reference Range Interpretation Comments POC-GLUCOSE METER 161 mg/dL 70-110 H TEST[facility] [place] [address] [facility] (test code = ABDULAZIZ Cameron [facility] 1538) [address] POCT-GLUCOSE [id number] 08:30:00 Test Item Value Reference Range Interpretation Comments POC-GLUCOSE METER 131 mg/dL 70-110 H TESTED AT [place] [address] (BEAKER) (test code = ABDULAZIZ Cameron [facility] 1538) [address] [id number] 06:13:00 Test Item Value Reference Range Interpretation Comments MAGNESIUM (BEAKER) (test code = 1.5 mg/dL 1.6-2.6 L 627) BASIC METABOLIC [id number] 06:13:00 Test Item Value Reference Range Interpretation [...] I S NOT APPLICABLE FOR DIALYSIS PATIEN [id number] 05:39:00 Test Item Value Reference Range Interpretation Comments PARTIAL THROMBOPLASTIN TIME 85.9 seconds 22.5-36.0 H (BEAKER) (test code = 760) CBC W/PLT COUNT & AUTO [id number] 05:35:00 Test Item Value Reference Range Interpretation [...] PERCENT (BEAKER) (test code = 2801) POCT-GLUCOSE [id number] 21:27:00 Test Item Value Reference Range Interpretation Comments POC-GLUCOSE METER 174 mg/dL 70-110 H TEST[facility] AT [place] [address] [facility] (test code = SALLYCAM Rakesh [facility] 1538) [address] [id number] 18:40:00 Test Item Value Reference Range Interpretation Comments PARTIAL THROMBOPLASTIN TIME 89.7 seconds 22.5-36.0 H (BEAKER) (test code = 760) POCT-GLUCOSE [id number] 18:28:00 Test Item Value Reference Range Interpretation Comments POC-GLUCOSE METER 148 mg/dL 70-110 H TESTED AT [place] [address] [facility] (test code = SALLYCAM [place]akes[place] 1538) [address] [id number] 12:47:00 Test Item Value Reference Range Interpretation Comments PARTIAL THROMBOPLASTIN TIME 73.2 seconds 22.5-36.0 H (BEAKER) (test code = 760) POCT-GLUCOSE [id number] 11:43:00 Test Item Value Reference Range Interpretation Comments POC-GLUCOSE METER 152 mg/dL 70-110 H TESTED AT [place] [address] (BEAKER) (test code = SALLYCAM [place]akesh [place] 1538) [address] POCT-GLUCOSE [id number] 08:05:00 Test Item Value Reference Range Interpretation Comments POC-GLUCOSE METER 145 mg/dL 70-110 H TESTED AT [place] [address] [facility] (test code = ABDULAZIZ Cameron [place] 1538) [address] BASIC METABOLIC [id number] 06:13:00 Test Item Value Reference Range Interpretation [...] S NOT APPLICABLE FOR DIALYSIS PATIREGINA OLIVARES [id number] 05:29:00 Test Item Value Reference Range Interpretation Comments PARTIAL THROMBOPLASTIN TIME 60.6 seconds 22.5-36.0 H (BEAKER) (test code = 760) CBC W/PLT COUNT & AUTO [id number] 05:22:00 Test Item Value Reference Range Interpretation [...] PERCENT (BEAKER) (test code = 2801) POCT-GLUCOSE [id number] 22:50:00 Test Item Value Reference Range Interpretation Comments POC-GLUCOSE METER 175 mg/dL 70-[address] [facility] 6720 (BEAKER) (test code = ABDULAZIZ [place] 1538) [address] POCT-GLUCOSE [id number] 18:20:00 Test Item Value Reference Range Interpretation Comments POC-GLUCOSE METER 157 mg/dL 70-[address] [facility] 6720 (BEAKER) (test code = ABDULAZIZ Cameron [place] 1538) [address] PLATELET AGGREGATION: FUNCTION [id number] 15:05:00 Test Item Value Reference Range Interpretation Comments [id number] Staci Waite, (BEAKER) (test code = (electronic 1982) signature) PLATELET COUNT AGG 284 K/CU MM 150-450 (BEAKER) (test code = 3446) PLATELET RICH 244 k/cu mm 200-300 PLASMA(BEAKER) (test code = 2138) PLATELET FUNCTION SCREEN Decreased aggregation INTERPRETATION (BEAKER) with ADP which (test code = 4655) indicates platelet dysfunction that may be due to medication effect, uremia, or other platelet function disorders. Clinical correlation is required. Platelet Function Screen results may be falsely low with platelet counts<75,000/cu mm.POCT-GLUCOSE [id number] 12:10:00 Test Item Value Reference Range Interpretation Comments POC-GLUCOSE METER 171 mg/dL 70-[address] [facility] 6720 (BEAKER) (test code = ABDULAZIZ [place] 1538) [address] CBC W/PLT COUNT & AUTO [id number] 11:17:00 Test Item Value Reference Range Interpretation [...] Received comment: User comments: Slide comments:BASIC METABOLIC [id number] 08:14:00 Test Item Value Reference Range Interpretation [...] 358) GLUCOSE RANDOM 115 mg/dL 70-105 H ([facility]) (test code = 652) CALCIUM (BEAKER) 9.5 mg/dL 8.4-10.2 (test code = 697) EGFR ([facility]) (test 50 mL/min/1.73 ESTIMA WALDEMAR GFR IS code = 1092) sq m NOT ACCURATE CREATININE CLEARANCE IN PREDICTING GLOMERULAR FILTRATION RATE . ESTIMATED GFR I S NOT APPLICABLE FOR DIALYSIS PATIEN TS. POCT-GLUCOSE [id number] 07:53:00 Test Item Value Reference Range Interpretation Comments POC-GLUCOSE METER 124 mg/dL 70-110 H TESTED AT [place] [address] ([facility]) (test code = ABDULAZIZ Cameron [facility] 1538) [address] [id number] 07:17:00 Test Item Value Reference Range Interpretation Comments PARTIAL THROMBOPLASTIN TIME 73.8 seconds 22.5-36.0 H ([facility]) (test code = 760) [id number] 00:43:00 Test Item Value Reference Range Interpretation Comments PARTIAL THROMBOPLASTIN TIME 71.1 seconds 22.5-36.0 H ([facility]) (test code = 760) POCT-GLUCOSE [id number] 21:48:00 Test Item Value Reference Range Interpretation Comments POC-GLUCOSE METER 215 mg/dL 70-110 H TESTED AT [place] [address] ([facility]) (test code = [facility] Rakesh [facility] 1538) [address] [id number] 19:01:00 Test Item Value Reference Range Interpretation Comments PARTIAL THROMBOPLASTIN TIME 79.1 seconds 22.5-36.0 H ([facility]) (test code = 760) POCT-GLUCOSE [id number] 18:01:00 Test Item Value Reference Range Interpretation Comments POC-GLUCOSE METER 130 mg/dL 70-110 H TESTED AT [place] [address] ([facility]) [facility] 1538) [address] POCT-GLUCOSE [id number] 13:32:00 Test Item Value Reference Range Interpretation Comments POC-GLUCOSE METER 136 mg/dL 70-110 H TESTED AT [place] [address] ([facility]) (test code = [facility] Rakesh [facility] 1538) [address] [id number] 11:42:00 Test Item Value Reference Range Interpretation Comments PARTIAL THROMBOPLASTIN TIME 50.9 seconds 22.5-36.0 H (BEAKER) (test code = 760) POCT-GLUCOSE [id number] 08:47:00 Test Item Value Reference Range Interpretation Comments POC-GLUCOSE METER 169 mg/dL 70-[address] [facility] 6720 (BEAKER) (test code = ABDULAZIZ [place] 1538) [address] TSH/FREE T4 IF [id number] 04:54:00 Test Item Value Reference Range Interpretation Comments THYROID STIMULATING HORMONE 2.33 uIU/mL 0.35-4.94 (BEAKER) (test code = 772) BASIC METABOLIC [id number] 04:22:00 Test Item Value Reference Range Interpretation [...] S NOT APPLICABLE FOR DIALYSIS PATIEN TS. [id number] 04:17:00 Test Item Value Reference Range Interpretation Comments PARTIAL THROMBOPLASTIN TIME 55.1 seconds 22.5-36.0 H (BEAKER) (test code = 760) CBC W/PLT COUNT & AUTO [id number] 04:08:00 Test Item Value Reference Range Interpretation [...] PERCENT (BEAKER) (test code = 2801) HEMOGLOBIN [id number] 22:25:00 Test Item Value Reference Range Interpretation Comments HEMOGLOBIN A1C ([facility]) (test code = 5.9 % 4.3-6.1 368) [id number] 21:15:00 Test Item Value Reference Range Interpretation Comments PARTIAL THROMBOPLASTIN TIME 21.0 seconds 22.5-36.0 L ([facility]) (test code = 760) Prior to initiating heparinPOCT-GLUCOSE [id number] 18:09:00 Test Item Value Reference Range Interpretation Comments POC-GLUCOSE METER 147 mg/dL 70-110 H TESTED AT [place] [address] ([facility]) (test code = [facility] 1538) [address] RAD, CHEST, 2 [id number] 17:00:00Reason for Exam:->CARDIOMYPATHYFINAL REPORT Chest, two views. Clinical history: Cardiomyopathy. COMPARISON STUDY: July 21, 2017. FINDINGS: The cardiac silhouette is enlarged. The patient is status post sternotomy and pacer insertion. There are mild interstitial markings but no definite focal opacity, pleural effusion or pneumothorax. Postsurgical changes are seen in the spine. IMPRESSION: Cardiomegaly. Signed: Lakisha Robledo Verified Date/Time: 08/22/2017 17:00:07 Reading Location: [address] Radiology Reading Room POCT- GLUCOSE [id number] 12:06:00 Test Item Value Reference Range Interpretation Comments POC-GLUCOSE METER 153 mg/dL 70-[address] [facility] 67 ([facility]) (test code = [facility] 1538) [address] POCT-GLUCOSE [id number] 09:45:00 Test Item Value Reference Range Interpretation Comments POC-GLUCOSE METER 117 mg/dL 70-[address] [facility] 67 ([facility]) (test code = [facility] 1538) [address] BASIC METABOLIC [id number] 08:01:00 Test Item Value Reference Range Interpretation Comments SODIUM ([facility]) 135 meq/L 136-145 L (test code = 381) POTASSIUM ([facility]) 4.1 meq/L 3.5-5.1 (test code = 379) [...] 0-0 (BEAKER) (test code = 413) POCT-GLUCOSE [id number] 21:49:00 Test Item Value Reference Range Interpretation Comments POC-GLUCOSE METER 99 mg/dL 70-[address] [facility] 6720 ([facility]) (test code = ABDULAZIZ Cameron [facility] [address] 1538) POCT-GLUCOSE [id number] 18:10:00 Test Item Value Reference Range Interpretation Comments POC-GLUCOSE METER 99 mg/dL 70-[address] [facility] 6720 ([facility]) (test code = ABDULAZIZ Cameron [facility] [address] 1538) RAD, CHEST, 1 VIEW, NON [id number] 18:07:00Reason for exam:->s/p laser lead extraction and [...] interval examination of the chest. Signed: Ashkan Garvey Verified Date/Time: 07/21/2017 18:07:38 Reading Location: [address] Consult Reading Room -GLUCOSE [id number] 12:15:00 Test Item Value Reference Range Interpretation Comments POC-GLUCOSE METER 103 mg/dL 70-[address] [facility] 6720 ([facility]) (test code = ABDULAZIZ Cameron [facility] 1538) [address] [id number] 10:45:00 Test Item Value Reference Range Interpretation Comments MAGNESIUM (BEAKER) (test code = 1.8 mg/dL 1.6-2.6 627) BASIC METABOLIC [id number] 10:45:00 Test Item Value Reference Range Interpretation [...] NOT APPLICABLE FOR DIALYSIS PATIEN TS. POCT-GLUCOSE [id number] 07:59:00 Test Item Value Reference Range Interpretation Comments POC-GLUCOSE METER 110 mg/dL 70-[address] [facility] 6720 (BEAKER) (test code = ABDULAZIZ [place] 1538) [address] [id number] 03:28:00 Test Item Value Reference Range Interpretation Comments MAGNESIUM (BEAKER) (test code = 1.8 mg/dL 1.6-2.6 627) BASIC METABOLIC [id number] 22:59:00 Test Item Value Reference Range Interpretation [...] NOT APPLICABLE FOR DIALYSIS PATIEN TS. POCT-GLUCOSE [id number] 22:54:00 Test Item Value Reference Range Interpretation Comments POC-GLUCOSE METER 165 mg/dL 70-[address] [facility] 6720 (BEAKER) (test code = ABDULAZIZ D[place] 1538) [address] PROTHROMBIN [id number] 10:35:00 Test Item Value Reference Range Interpretation Comments PROTIME (BEAKER) (test code = 15.4 seconds 11.7-14.7 H 759) INR (BEAKER) (test code = 370) 1.2 <=5.9 RECOMMENDED COUMADIN/WARFARIN INR THERAPY RANGESSTANDARD DOSE: 2.0 - 3.0 Includes: PROPHYLAXIS forvenous thrombosis, systemic embolization; TREATMENT for venous thrombosis and/or pulmonary embolus.HIGH RISK: Target INR is 2.5-3.5 for patients with mechanical heart valves.BASIC METABOLIC [id number] 10:35:00 Test Item Value Reference Range Interpretation [...] PATIEN TS. CBC W/PLT COUNT & AUTO [id number] 10:25:00 Test Item Value Reference Range Interpretation [...] 0-1 PERCENT (BEAKER) (test code = 2801) [id number] 13:22:00 Test Item Value Reference Range Interpretation Comments FERRITIN (BEAKER) (test code = 361) 169 ng/mL 5-275 VITAMIN B12 AND [id number] 13:22:00 Test Item Value Reference Range Interpretation Comments VITAMIN B12 (BEAKER) (test code = 254 pg/mL 213-816 774) FOLATE (BEAKER) (test code = 362) 10.2 ng/mL >=7.0 COMPREHENSIVE METABOLIC [id number] 12:57:00 Test Item Value Reference Range Interpretation [...] % 20-55 (test code = 2590) RETICULOCYTE [id number] 12:29:00 Test Item Value Reference Range Interpretation Comments RETICULOCYTE COUNT PCT (BEAKER) (test 2.1 % 0.5-1.8 H code = 575) CBC W/PLT COUNT & AUTO [id number] 12:29:00 Test Item Value Reference Range Interpretation [...] (BEAKER) (test code = 2801) BEDSIDE GLUCOSE [id number] 21:55:73502Nxshrepw HermannBEDSIDE GLUCOSE [id number] 16:40:67575Iotkdfvy BqpejqnEIWJJTEKL5821-68-87 13:58:3412.2 [facility] CfqytxzMDTTRKHGP7974-11-53 13:58:348.8[facility] HermannCHEMISTRY 2012-11-15 13:58:3427[facility] XwifjcfZJONLGJBM8803-24-43 13:58:3463[facility] YiaxttlAROUJYPXA5189-17-21 13:58:341.2[facility] YbgqfcfQBRHZCDQK0980-45-72 13:58:64659Boxutejr MjrtsreXUBJWYEQF5045-01-24 13:58:3421[facility] [place] VXCPWLLAB8519-20-91 13:58:79848Gvhubnwp YrktyfyXHWZNVHFZ4140-78-01 13:58:344.2 [facility] SxjjjzwKBVTKGOLW4564-91-67 13:58:34725Ckoxzwco HermannBEDSIDE GLUCOSE ZYSCSUY3534-21-87 11:25:32081Axboqlmm ZrpovlnIOZBNZBRW1433-46-20 23:45:5815.5 [facility] CwwrqgtDFROLIEGM3294-25-55 23:45:588.9[facility] HermannCHEMISTRY 2012-11-14 23:45:5857[facility] QrbwjkqGRNELGDIV9927-99-63 23:45:48404Tgdizhrf TdhfcpgAAKWIAUBV3642-64-08 23:45:5826[facility] ZkprsbbONKVMSOOH6910-74-21 23:45:584.5[facility] AkuybtxRXYOUPCHQ1591-98-22 23:45:581.3[facility] HIQFXFDJO2678-10-15 23:45:75435Fjhvzhdl KvmkqlsUBVEFDSZW8284-26-25 23:45:5824 [facility] JxttfksAFJWVNUSX7071-76-08 23:45:00165Gbgbszkx HermannCHEMISTRY 2012-11-13 16:07:67683Tgchhucu YxezelbHUMGAHJJV9957-45-82 16:07:0028[facility] MruqzazUXQLIENKK0582-40-91 16:07:0070.4[facility] PbpzpyjTZNWOWQWM1330-65-44 15:48:202.310[facility] QhhookiNCNGCHNRI1038-22-69 15:48:42223Zpagemeb [place] EGDRYYNXF7932-67-86 15:48:2023.0[facility] MbrkjkkQTIIRCCIM2087-93-54 15:48:2020 [facility] BjywvnsICHOEDOCN1561-51-51 15:48:2019.9[facility] HermannCHEMISTRY 2012-11-13 15:48:3[facility] LpaafjfZMTZOZYXP9854-84-38 15:48:35676Kmteyclo TkihzkhVQULYRQAZ7951-56-72 15:48:208.9[facility] RybolhuSYJYIXPDM8705-89-38 15:48:204.9[facility] JhkxlclCNWRIRPCC0479-25-05 15:48:201.2[facility] ARCTFJOMO7000-95-18 15:48:33821Rdlrgicz CueabcnDMVLBNULZ4303-49-36 15:48:28685 [facility] BbnlssnPHMLNUBLK0604-20-01 15:48:2023[facility] HermannCHEMISTRY 2012-11-13 15:48:201.8[facility] EjzkzxyEJLQOKPQD4365-03-79 15:48:204.9[facility] VfqiukpMCOQZVDCS3252-28-54 15:48:89651Igfauiit KzgiiuwYDUHNRHASK1716-31-88 11:49:67052Idyyvfnp UfcjrflGZMQNRMQRM7506-93-78 11:49:4814.7[facility] [place] URBJAJPURG8579-40-83 11:49:4832.7[facility] EicbskzQITXCLSJNX5522-51-98 11:49:48 8.3[facility] LzdfegxIANIWVMHHK0189-42-65 11:49:483.64[facility] HermannHEMATOLOGY 2012-11-13 11:49:4834.4[facility] VutubivFXODCDZJXR7397-60-70 11:49:4811.3[facility] MyzzhmwKSKWLDONZO3977-36-26 11:49:485.3[facility] NnrcawqGTQBZHYNSQ2468-96-30 11:49:4894.7[facility] OacnkqgCAJOJPIJOG7189-79-50 11:49:48 Test Item Value Reference Range Interpretation Comments MCH (test code = MCH) 30.9 pg 27.0-31.0 N Memorial RzbpflpCXZRCQUAS5925-11-33 11:20:005.3[facility] HermannCHEMISTRY 2012-11-12 11:20:001.5[facility] EhqscnfYWVLOFRBG7289-98-55 21:13:00<0.02 [facility] EnjjcezTMFNCUEBB6246-34-92 21:13:00<0.010[facility] HermannCHEMISTRY 2012-11-08 21:13:0035[facility] ObrzmvvZOUGJKUAW8683-78-88 14:50:00<0.010 [facility] TsinqhjPGRFQQKHB6467-88-12 14:50:00<0.02[facility] HermannCHEMISTRY 2012-11-08 14:50:0031[facility] UlwawjmPQYYUSWSF5360-33-72 06:02:001.6[facility] UvnzbygMIJUDBVCX0012-28-96 06:02:004.8[facility] TxydzoxDVDSYNGFXT1365-98-35 07:10:005.7[facility] JxfvbxrFZMSANPUOB2757-67-52 07:10:004.1[facility] YEDRZPYNXO2568-02-58 07:10:000.5[facility] DyaagtqGROPHNXLCJ6329-70-75 07:10:002.7 [facility] OwfmndfLVNJBRTHKC5314-27-45 07:10:000.6[facility] HermannHEMATOLOGY 2012-11-07 07:10:000.5[facility] VhesccoOJUOMRVSNN0876-60-32 07:10:008.1[facility] EbyrknyRCDTVKPKQL4243-27-70 07:10:0052.1[facility] BzwqrzvCCAIFQTLYB5757-03-50 07:10:0033.6[facility] AqrrijsFWGAJYQPXB8345-08-20 07:10:67661Fbfqyuvw Aric CBDRQTRUNL8342-31-52 07:10:0015.0[facility] YhwqlqmCMYLRXYUCX0198-67-43 07:10:00 8.1[facility] UdpsnanKVVSIBJGVG3211-32-71 07:10:00 Test Item Value Reference Range Interpretation Comments MCH (test code = MCH) 31.0 pg 27.0-31.0 N [facility] TszpfybOCAZCGPDCE9427-31-01 07:10:0032.8[facility] HermannHEMATOLOGY 2012-11-07 07:10:0034.4[facility] KfkjarqIWHOIBAKUW2873-06-85 07:10:0094.4[facility] NbxweeqLADKAORSPA3362-47-81 07:10:007.9[facility] MbwhcmlBMWQNICVXG7586-21-78 07:10:0011.3[facility] YkccqtcZBWVCMLKTN3797-97-40 07:10:003.64[facility] [place] [facility] OFGZMROQIU0345-31-83 07:45:03741Dawfactg DmjclhyYAWBMXSRRO7773-68-55 07:45:00 33.4[facility] YprgrxdEPCVOLHRVG2493-96-22 07:45:008.3[facility] HermannHEMATOLOGY 2012-11-04 07:45:0014.7[facility] XwphujvPNODXPYDZT2252-75-70 07:45:003.28[facility] EmlrzkeWHTBJPZNBQ2137-99-43 07:45:006.8[facility] FsmuzbvCPMPIWTWDP4981-47-39 07:45:00 Test Item Value Reference Range Interpretation Comments MCH (test code = MCH) 31.0 pg 27.0-31.0 N [facility] JbyvhcbONDNCDTXEP3721-07-38 07:45:0030.5[facility] HermannHEMATOLOGY 2012-11-04 07:45:0010.2[facility] QifiykyBOMBWNQBIB2262-65-42 07:45:0092.8[facility] WikiqmqURSIKFPYAF5564-69-54 07:45:0010.1[facility] FumiqisGSCPINRNLD6553-14-46 07:45:0050.5[facility] HvosnpwUFDLUHLFRB0119-00-77 07:45:0032.2[facility] UWXOPDPANR4767-48-05 07:45:002.2[facility] EulmxbuTXDSTFJWSH5867-36-12 07:45:000.8 [facility] SwxhjjdZEDGVHEBNX8546-36-22 07:45:000.7[facility] HermannHEMATOLOGY 2012-11-04 07:45:003.4[facility] FjzufurOWJUPXORTT6422-42-45 07:45:006.4[facility] UaebsstSDQIOFBBQK3157-20-92 07:45:000.1[facility] XcwfknjURYOQOOABJ0151-80-37 07:45:000.4[facility] FLCPDSX7072-22-48 14:30:25Product available (11/03/2012 09:30:25)[facility] OKRMBAB2867-94-04 14:30:00Negative (11/03/2012 09:30:00)[facility] JmpdqkhHFSCIEQXDP4928-99-72 08:42:195.9[facility] FbsecbcHLVGJXQPQM2992-19-77 08:42:1910.8[facility] [place] WIOMXJOFXV0997-53-77 08:42:1931.9[facility] SatcxtzCVTOMABFAC1350-71-33 08:42:19 3.2[facility] GbyjtpbFJOAFGUIEU1195-76-87 08:42:192.0[facility] HermannHEMATOLOGY 2012-11-03 08:42:190.7[facility] AalwyluDOYHELQPFU9634-92-92 08:42:190.4[facility] LavduyoETCDOWDOOI0112-06-42 08:42:190.7[facility] ZfmhujsVUCGUDPDOG5183-25-96 08:42:1950.7[facility] YehydxqZCAOPHDOEA7285-97-74 11:18:000.1[facility] [place] SNITQEBCZD0680-44-16 08:31:000.1[facility] HermannBEDSIDE GLUCOSE TESTING 2012-10-27 01:47:82324Oxqdkkqn HermannBEDSIDE GLUCOSE BYYDWPZ0008-89-89 22:48:00 168[facility] HermannBEDSIDE GLUCOSE BCGSNYN5969-92-45 16:57:06622Wjzreviu [place] PENGESPJJ9998-16-68 08:02:0070[facility] JhdinyoKQPTXPXSE2940-76-88 08:02:49649 [facility] TktlqjiDJGOFPULU5191-96-87 08:02:0020[facility] HermannCHEMISTRY 2012-10-26 08:02:0027[facility] HjtapopVAXYIUAXY9397-26-89 08:02:96303Ddnbbzca CcacltxPXQVPAAQV1588-96-32 08:02:001.1[facility] QlszyojDDCWBHXHA3273-53-05 08:02:0098[facility] RmabfrgJPCUIMXET0336-07-11 08:02:004.6[facility] [place] UQLIJSQGW6241-40-49 08:02:008.2[facility] ZgziwvoFDWQTHHSI9901-51-97 08:02:0016.6 [facility] SlktlfxZZGVYYVQQ1450-31-34 08:02:004.6[facility] HermannCHEMISTRY 2012-10-26 08:02:001.5[facility] CxpgzrtSBHHEPTQRU3018-12-07 08:02:008.1[facility] MitxtweKCQSXPONZC9485-14-91 08:02:007.8[facility] HqwbibdYJPGOXQIAM9252-11-40 08:02:0093.0[facility] MwcdityYEBGDNVQBZ1014-24-72 08:02:0023.3[facility] [place] IBUKLHWFYV5874-61-20 08:02:00 Test Item Value Reference Range Interpretation Comments MCH (test code = MCH) 31.3 pg 27.0-31.0 H [facility] LqoiackFBLHXBYRCG0008-54-64 08:02:0033.7[facility] HermannHEMATOLOGY 2012-10-26 08:02:0014.3[facility] ToplmfbLUPIYGRKTS2291-31-07 08:02:59567Xcelezai UcrhkwuLTJPSLCWES3128-67-95 08:02:002.50[facility] TiejxfkGLJWANIZKE0988-46-41 08:02:005.6[facility] IyrflahNIVPAENFT5693-26-68 10:19:0010.6[facility] [place] ZSTSZKTVD5031-62-72 10:19:0079[facility] ZjurbmcQVMPBXCHP2387-26-00 10:19:10603 [facility] TiafkbpUVXPOQDCC2530-86-88 10:19:0016[facility] HermannCHEMISTRY 2012-10-24 10:19:01468Gpmubulp HlfcmelJBVNJHTFL3081-37-71 10:19:001.0[facility] SvcqknhHMSZWFWJF0230-94-68 10:19:009.1[facility] VgnkmztKHIPUPQKV4217-15-51 10:19:004.6[facility] JcbsnpfKZPEARYOR2302-19-85 10:19:77983Lazzuqzk Aric CUMGZXKNA6751-05-27 10:19:0030[facility] CqtkdfgWLFGNFVKCM5804-81-03 10:19:000.2 [facility] WcrdjejDUAYSFHWLM8757-24-28 10:19:004.3[facility] HermannHEMATOLOGY 2012-10-24 10:19:0010.4[facility] FeqapqdMHHMUJPVYF1874-03-99 10:19:002.4[facility] GfislbxLGFFZDFGAW9817-25-77 10:19:004.1[facility] OpgnhsuTCGSHQSBLM1423-54-45 10:19:000.8[facility] EpbbyucVBKHXSUQDU4475-94-93 10:19:002.0[facility] [place] IZCAGFEFBL9752-81-52 10:19:000.3[facility] ZhbgrmyBVBZELCNTG8575-71-25 10:19:00 55.7[facility] MttcjgjZUZGCRGYNT6094-75-21 10:19:0027.2[facility] HermannHEMATOLOGY 2012-10-24 10:19:00 Test Item Value Reference Range Interpretation Comments PTT (test code = PTT) 31.1 s 22.9-35.8 N [facility] OckxeeuIXVMSLWHRM6672-55-73 10:19:001.24[facility] HermannHEMATOLOGY 2012-10-24 10:19:00 Test Item Value Reference Range Interpretation Comments PT (test code = PT) 15.5 s 12.0-14.7 H [facility] CnzoashTFBKGPUGMZ9400-00-76 10:19:95838Ksdcyrsi HermannHEMATOLOGY 2012-10-24 10:19:0014.5[facility] MslgjhjIHHTXNGRII1657-49-90 10:19:008.1[facility] LgoovggLADQQTATDF0148-43-13 10:19:002.91[facility] IllwihaBRBHRMMNOZ7955-33-09 10:19:0027.5[facility] KgbwdrbARMHMZMPMR5636-99-26 10:19:008.8[facility] [place] NPWDHQXZGR4628-50-29 10:19:0094.4[facility] ZvnyimjRJMVGEVNGD3988-87-99 10:19:00 Test Item Value Reference Range Interpretation Comments MCH (test code = MCH) 30.4 pg 27.0-31.0 N [facility] HbpyvwjRPXAULWLTR9029-10-74 10:19:0032.2[facility] 2012-10-24 10:19:007.4[facility] TNBUGQB0327-53-80 09:30:00 Negative (10/24/2012 04:30:00)[facility] JhnxumiJEOZFRQECQ7092-83-40 09:02:4461.3 [facility] KqfgkzcXUOUQGZBFJ2329-26-56 09:02:4422.3[facility]annHEMATOLOGY 2012-10-21 09:02:4412.1[facility] LgxfoznNAAVWUQNVX8274-98-66 09:02:440.1[facility] OtijhnpLWZMJGXJHD0681-73-40 09:02:440.2[facility] XnoybtrGZDTRBUJUB6303-23-52 09:02:440.8[facility] RrwtednHWTJHGNOBT7632-45-75 09:02:444.2[facility] [place] MNMSPCRVCF2664-03-08 09:02:441.5[facility] DonrfroHBPZOEAJUB5804-50-50 09:02:440.8 [facility] EvggliqKQJFJUYCLU5797-79-37 09:02:443.5[facility]annHEMATOLOGY 2012-10-21 09:02:448.6[facility] UztzfjuYOUUNKTMHR1717-76-40 09:02:446.9[facility] FvdfxkkOHRYEQLGHM4937-02-82 09:02:44 Test Item Value Reference Range Interpretation Comments MCH (test code = MCH) 30.9 pg 27.0-31.0 N [facility] ZthrmzyMHESVWCOOS6202-89-37 09:02:4494.1[facility]annHE[facility]OLOGY 2012-10-21 09:02:4424.6[facility] VgovikpBDPKRMXKFX6360-97-15 09:02:448.1[facility] VpjamlxMLLGYFYAKZ5035-18-97 09:02:442.62[facility] WitmudzTOQSSJHOAW0408-02-28 09:02:4414.5[facility] NmdmlfoQUAHIYJZFV4659-49-80 09:02:4432.9[facility] NFLRVEZNML6776-89-96 09:02:97487Mfezewto ReurcvfWJRDFJWZD3603-73-17 09:34:0063 [facility] DbehreoOOQNOYDBS7937-75-94 09:34:93776Rvxkznix HermannCHEMISTRY 2012-10-20 09:34:0024[facility] IrfhklqZAEWZFZXR7282-85-10 09:34:001.2[facility] HyzdwrpSEJGQBRII3454-24-50 09:34:46022Qbnnkkoy TsukweyVLNRSOYFL4981-34-71 09:34:004.7[facility] KhlimhqYNNMTHABD7100-31-96 09:34:08115Wpwzzbdy [place] GCEAZTTGZ1728-57-24 09:34:0017.7[facility] FoojjtdHFBIEMCTX4659-29-76 09:34:0023 [facility] HeofywcYULAZZLWL2324-17-40 09:34:008.3[facility] HermannCHEMISTRY 2012-10-20 09:34:002.2[facility] HxrevshEMQTTNIPPU9594-01-76 09:34:0073.4[facility] AjkdzcgQEAHRUFQCB6520-48-20 09:34:0014.1[facility] EzvledpHCMAKMNSPK0722-48-31 09:34:002.6[facility] IkpyynsEOUIGABBUN0572-18-96 09:34:009.3[facility] KMYQNKCGCW4219-39-16 09:34:000.2[facility] IhzjagtQZILOALRPG9272-52-52 09:34:006.6 [facility] MwkkynyFCFHRMXXLH1736-28-43 09:34:000.6[facility]annHEMATOLOGY 2012-10-20 09:34:000.1[facility] ZnzjoilZAGMTOTJSC6827-41-05 09:34:000.8[facility] RottgwkARGBGUXXUF0178-14-46 09:34:001.3[facility] DbpjuedORELHVHOH6746-45-28 15:39:10050Sdpgiqmh ZdtormdDKUOUQXLN5565-39-08 15:39:0060.0[facility] RSRNQFGML0021-81-78 15:39:007.38[facility] YezajuvDZBXACPUZ8287-47-96 15:39:0032 [facility] IhwebmbPDOLXMPOF1319-19-20 15:39:0047[facility]annCHEMISTRY 2012-10-19 15:39:0028[facility] EeebpyuPBDAKOGVV2658-67-00 15:39:002[facility] QkwoqjyTGOFQVOED0268-83-94 15:39:0037.0[facility] NepyvllTRGUPAHNW5469-55-79 15:39:001.21[facility] KclrmzpVZTGNCHIA7550-35-08 15:39:0025.0[facility] [place] YIFBIBBAC7722-15-33 15:39:004.4[facility] HhwxxcxMHCGOJHCN8557-80-96 15:39:10190 [facility] NvmljsuRGWILSZRH6004-36-64 15:39:000.7[facility] HermannCHEMISTRY 2012-10-19 10:31:281.4[facility] BjrbwfbJDQEGUIAU7248-37-22 10:31:284.7[facility] GerytvkYEWWPJHRRR8472-50-73 10:31:28 Test Item Value Reference Range Interpretation Comments PTT (test code = PTT) 30.8 s 22.9-35.8 N [facility] ZbtaopgGPCQORHMEE6174-89-83 10:31:221.26[facility]annHEMATOLOGY 2012-10-19 10:31:22 Test Item Value Reference Range Interpretation Comments PT (test code = PT) 16.0 s 12.0-14.7 [facility] RDMDPKI3479-47-57 10:15:00Negative (10/19/2012 05:15:00)[facility] PvuqvgaALXHAYKDG1926-69-79 08:24:004.1[facility] ANENCBHRTF1141-26-07 09:16:09Negative *NA*(10/16/2012 04:16:09)[facility] [place] BKUTILCJDQ9328-40-20 09:16:04 Test Item Value Reference Range Interpretation Comments PTT (test code = PTT) 37.0 s 22.9-35.8 H [facility] LeubyrhUYVFYIOWHQ4857-41-71 09:16:041.30[facility]annHEMATOLOGY 2012-10-16 09:16:04 Test Item Value Reference Range Interpretation Comments PT (test code = PT) 16.4 s 12.0-14.7 H [facility] KSLOQZG8184-10-52 09:55:00Negative (10/15/2012 04:55:00)[facility] WyshaznIUYJPCYKP7937-37-45 09:03:0067[facility]ann[facility]MISTRY 2012-10-15 09:03:002.3[facility] AfdiucjLNOWXCVDZ7733-62-45 09:03:000.9[facility] PcybqrvRJAVMYCIO7801-62-21 09:03:000.3[facility] IdhdtzjANZLWRIGZ2966-27-56 09:03:0028[facility] MuvcuedKYKMFLGAQ4404-04-51 09:03:0058[facility] [place] GRLNTJQPM0414-63-04 09:03:005.5[facility] JtzuhcgUEMBJHLGI2327-35-17 09:03:000.6 [facility] MnmyrctZHKGGBPSK1368-45-77 09:03:003.2[facility]ann[facility]MISTRY 2012-10-15 09:03:000.7[facility] PguomztCBAXEEDLU4021-48-57 09:03:0088[facility] YxuvxtzKNNUQNRJI3094-73-71 05:46:300.5[facility] GwqoapbIGNHVVWQD4892-90-28 05:46:303.1[facility] LfjarzjWZLMLXMRV2037-88-46 05:46:300.7[facility] LRHOXVRKM9110-58-74 05:46:3082[facility] BydzfpyXJPOINBQI6755-40-01 05:46:3033 [facility] DalwjbgLEDXMJJYW1711-82-46 05:46:300.4[facility]annCHEMISTRY 2012-10-14 05:46:300.9[facility] TcwqducBWIXPLKXX9000-16-78 05:46:305.2[facility] RcbulqgUAJFMTEQC4468-28-33 05:46:302.1[facility] SxyhrmeKSJJLSXXO4249-87-29 05:46:3062[facility] YzzatijIWGDQLNDG8621-76-14 05:46:86654Yrebvpfo [facility]ric KHWFNAGJA7006-40-57 05:46:271.13[facility] EbuiabwSKINAMXUV7301-67-44 05:46:271.14 [facility] NwkvhtvCGWMVZWXGW1640-28-94 06:47:76406.0[facility] HermannIMMUNOLOGY 2012-10-13 06:47:0011.9[facility] BswlxzcSHREYNQCQ9599-84-01 05:19:001.10[facility] SjjumijSUXFKJHUI6613-64-71 05:19:001.14[facility] DcveqgoIPFNEXWFO1684-25-50 20:15:441.09[facility] YjawjnySFBWZHWYI3799-98-88 20:15:441.14[facility] WGOPWFSAF3446-19-56 20:07:70226.0[facility] SonfvtuGFOSNJYVN7460-42-36 20:07:00-1 [facility] ZgnplgeEMVHGGFPC4884-16-34 20:07:0037.0[facility]annCHEMISTRY 2012-10-11 20:07:007.31[facility] XitwkfxOZKVPZOTZ0236-31-96 20:07:76051Gftmqiud LmzaoebGTZSXOZGU0631-24-24 20:07:0052[facility] HittukvYLWFPEYMJ2811-82-87 20:07:0026[facility] UddklbmNSJBBMPJF0016-40-02 18:02:14966Grprvtmx [place] CMITJJFDD8445-51-81 18:02:000.8[facility] IluqenxBPYNLBIOK7535-70-73 18:02:0037.0 [facility] MubyortSHTSWKSHF6578-51-26 18:02:007.26[facility]annCHEMISTRY 2012-10-11 18:02:31783Rrboefbp GvvduowVCBFYPEWS2126-23-93 18:02:001.25[facility] NsrevclRYMKFPHBF4743-36-48 18:02:004.1[facility] IqahrfoBJHHVLBIV8452-64-76 18:02:0072[facility] SmelruwIPGAAZQAW6807-54-76 18:02:0027[facility] LUPYCQVOE0933-85-77 18:02:0061[facility] CnusimjREYFEBNBB3130-77-85 18:02:000 [facility] OpsnzxtSNFUDLXRW0010-91-47 18:02:0026.0[facility]annCHEMISTRY 2012-10-11 18:02:0092.0[facility] IhaaabxNFBKAHDRQ4483-01-31 16:23:002[facility] YbwsdefOHPWYEBCE9527-30-80 16:23:0029[facility] UzgfzpjDYNPDBTBT6913-11-53 16:23:0058[facility] LipluefJIOIZDQWQ0940-88-43 16:23:003.8[facility] MKQVGFGHX0197-56-39 16:23:71488Gjivmlde RgjgiuwUESKOGRDL5581-38-03 16:23:0094.0 [facility] BajstbuCAIIFIIBK4846-97-68 16:23:0023.0[facility]annCHEMISTRY 2012-10-11 16:23:001.25[facility] CauujkyYGFJVOGBB0314-99-84 16:23:000.6[facility] PncwjmyXAXKVLPTM3244-58-33 16:23:72550Xlhiiwpx UydvkmfEMCPQETAB6619-58-59 16:23:0037.0[facility] OjuiuxrNVBRCWYRI8147-74-90 16:23:0079[facility] FCGLBZPKR1991-71-96 16:23:007.30[facility]annBL[facility]OD BANK UDDJSKH4898-54-42 07:11:00Product available (10/11/2012 02:11:00)[facility] AJEAMVN0624-56-93 07:11:00Product available (10/11/2012 02:11:00)[facility] HermannINFECTIOUS EWNFGDAE8156-49-49 18:48:09Negative 2(10/10/2012 13:48:09) [facility] HermannSTOOL FTUHZ9840-21-70 18:46:43Negative (10/10/2012 13:46:43) [facility] CopuqwhEXEHCMSDT1824-07-01 18:57:0099[facility]annCHEMISTRY 2012-10-09 18:57:00-3[facility] OfjdbgiHDWQOVMLF3834-96-62 18:57:0023[facility] GmbkkmdDMTFLEIRZ5004-89-08 18:57:0097.4[facility] UdsoghbFEVWLOWGL2932-40-67 18:57:0040[facility] YznqryuSULQEPGGA5946-99-99 18:57:007.36[facility] XSIVYJHAD3261-80-18 18:57:0037.0[facility] CexddbhPJOWWZHAB9320-35-59 18:38:0013.1 [facility] MpjrofmYNLGOGWWU8414-10-69 18:38:000.3[facility]annCHEMISTRY 2012-10-09 18:38:005843Yxyrndth WrrwdqhGKLVBOXLI7731-85-25 18:38:001.30[facility] BecadpbKLXARYAVC2383-31-37 18:38:000.111[facility] IqvcapfUVSTGEUMH8512-42-37 08:59:000.134[facility] VrviigiUCPILTZRR8098-57-35 08:59:001.37[facility] GJTBHKYWT8088-79-40 02:45:000.7[facility] LyqronkWWILYOPXC8048-11-16 02:45:0025.9 [facility] DblrfzzMSWFHNPJH9173-59-03 02:45:000.155[facility]annCHEMISTRY 2012-10-09 02:45:001.65[facility] UwcukxxSZKAWDPYQ8441-02-16 02:45:219584Bnkdnywi SgfmqezGCUXLBOZV2330-28-58 23:43:141.5[facility] HermannBACTERIAL - SEROLOGY 2012-10-08 21:05:00Negative 1(10/08/2012 16:05:00)[facility]annCHEMISTRY 2012-10-08 21:05:000.5[facility] EbjkbbuMAHEDTEOX5665-13-60 21:05:60889Yuurlfpz BeadhapMPWAGWIME5349-97-47 21:05:006.5[facility] XdxlofcMISHYDEPL0339-57-54 21:05:003.8[facility] LrjlricPSFAKYHLW9744-68-64 21:05:0099[facility] ENHSIVWQW9998-69-56 21:05:000.2[facility] HlodggrXESPSVGVS2429-39-01 21:05:0042 [facility] EmwywsgATFCBMZZD6433-15-65 21:05:001.4[facility]annCHEMISTRY 2012-10-08 21:05:002.7[facility] OlkebsuZGMWRGOCT3629-81-56 21:05:000.3[facility] TbsmptpHCUNQEKQG6868-47-68 21:05:532478Bkciykfg KtdfiuaAOMYLLSDW7412-18-71 21:05:0033.2[facility] XtwnuvvKBQDMKYKZ9969-40-10 21:05:001.1[facility] GLHGRSLKG9895-83-33 21:05:25214Scguvfzn UmogiykIMFVLJGZG3544-48-90 21:05:0018 [facility] XaiwmnoDODRZLXRP6688-43-67 21:05:003.3[facility] HermannCHEMISTRY 2012-10-08 21:05:001.1[facility] XkkcafvYUYSXRRBL5636-48-37 21:05:007.0[facility] VksfswcLJSDCZMRY4406-29-20 21:05:000.5[facility] MegtsxaUONCDOWGJ8391-69-73 21:05:0093[facility] KzfuousHZCUDAVUP1277-44-65 21:05:003.7[facility] AACWBPNBS1174-71-81 21:05:0044[facility] QfzkqdmPLVSLGGPMO1484-31-84 21:05:56361 [facility] OwgkmtaWHZGRYHJMT3350-59-97 21:05:00Negative *NA*(10/08/2012 16:05:00) [facility] XftamntLPVOCIUBO1431-62-24 18:14:3990.6[facility] HermannCHEMISTRY 2012-10-08 18:14:3937.0[facility] EyuwhaiTHGGEFGSA2010-56-66 18:14:39-5[facility] SenmzytPJPMSDEFR7849-97-47 18:14:397.22[facility] UqbznntJMSOIVPGF9327-99-87 18:14:3958[facility] GdtdunzQXDFRJVTV3794-02-49 18:14:3972[facility] EXHHPKUIF7560-54-50 18:14:3924[facility] SoanpshRCWWQZHIR3104-74-46 15:40:17-7 [facility] TxwowmlSCTEOMTNU1965-64-80 15:40:1740.2[facility] HermannCHEMISTRY 2012-10-08 15:40:1737.0[facility] NxspfakXKDUXMCZJ2579-97-15 15:40:177.27[facility] BcywqfdUCZUZCSFI6423-15-50 15:40:1744[facility] WjkucdfPENYISVCM6100-12-09 15:40:1727[facility] IwtnupxMKINNSXES6791-17-07 15:40:1720[facility]annBLOOD BANK DZEFLKS1702-27-64 15:40:00Result Note (10/08/2012 10:40:00)[facility] WDXGNRVCS7090-89-69 15:40:0021(10/08/2012 10:40:00)[facility]annCHEMISTRY 2012-10-08 15:40:0020(10/08/2012 10:40:00)[facility] OfiquwcHUPNDUJBS8129-01-94 15:40:003.1[facility] PxvbybxQKIJWWEFKR8002-67-92 15:40:001.7[facility] GQNJRBDTPY9749-49-34 15:40:0013.5[facility] TutdmypQEVCKQKBUA9102-04-79 15:40:00 Test Item Value Reference Range Interpretation Comments Split Point (test code = Split Point) 0.5 min [facility]GtublntLQXVEARDQS7181-67-21 15:40:00 Test Item Value Reference Range Interpretation Comments R-time (test code = R-time) 0.6 min 0.4-0.7 N [facility] CampusGivveglHOEUEFCBMI6250-53-97 15:40:00 Test Item Value Reference Range Interpretation Comments Angle (test code = Angle) 81 degrees 64-80 H [facility] CampusMkelyqoOSQHCXUDPE0179-80-81 15:40:00 Test Item Value Reference Range Interpretation Comments Max Amp (test code = Max Amp) 73 mm 52-71 H [facility] CampusQljsprzMTPBTREFLW7550-22-36 15:40:00 Test Item Value Reference Range Interpretation Comments K-time (test code = K-time) 0.8 min 0.6-2.3 N [facility] CampusGuyffnaXMMCQXUNXD8821-78-13 15:40:00 Test Item Value Reference Range Interpretation Comments ACT (TEG) (test code = ACT (TEG)) 105 s 86-118 N [facility]
--- OUTSIDE RECORDS SUMMARY | 2019-11-18 14:27 | XMS REPORT | Summary of Care ---
:1945 Author Organization [facility] Address [address] [place] [address] Care Team Providers Name Role Phone Ken Roman MD Primary Care Provider Reason for Visit Reason Comments Assessment Encounter Details Date Type Department Care Team Description 11/14/[address] [facility] Family Medicine Ken Vasquez MD Assessment - [address] [place] [address] [place] [address] [place] [address] [phone] Allergies No Known Allergiesdocumented as of this encounter (statuses as of 11/14/2019) Medications Medication Sig Dispensed Refills Start Date End Date Status nitroglycerin 0.[address] 1 tablet 100 tablet 3 03/07/2019 Active sublingual under the tabletIndications: tongue every 5 Essential hypertension (five) minutes as needed for Chest pain. LOVAZA, mhivq-4-ijpl TAKE 2 CAPSULES 360 capsule 1 09/05/2019 Active ethyl esters, 1 gram TWICE DAILY capsuleIndications: Hyperlipidemia with target LDL less than 100 omeprazole-sodium Take 1 capsule 90 capsule 1 09/05/2019 Active bicarbonate 40-1.1 by mouth daily mg-gram per with breakfast. capsuleIndications: 45 mg. Gastroesophageal reflux disease, esophagitis presence not specified Additional Information Patient taking differently: 1 capsule Oral BID, 45 mg., Informant: Patient, Reported on 09/26/2019 9:30 PM aspirin 81 mg EC Take 1 tablet by 30 tablet 0 10/01/2019 Active tabletIndications: mouth daily. Leukocytosis, unspecified type cholecalciferol, vitamin D3, 25 Take 2 tablets by 30 tablet 0 10/01/2019 Active mcg (1,000 unit) mouth daily. tabletIndications: Leukocytosis, unspecified type Fenofibric Acid 135 mg Take 1 capsule by 90 capsule 2 10/01/19 20 Active capsuleIndications: mouth daily. Hyperlipidemia with target LDL less than 100 HYDROcodone-acetaminophen Take 1 tablet by 12 tablet 0 020 Active 10-325 mg tabletIndications: mouth every 6 (six) chronic pain hours as needed for Pain (scale 4-6). Indications: chronic pain albuterol (PROAIR HFA) 90 Inhale 2 Puffs every 8.5 g 0 05/2019 Active mcg/actuation 6 (six) hours as inhalerIndications: needed for Wheezing Leukocytosis, unspecified type or Shortness of Breath. ranolazine 500 mg 12 hr Take 1 tablet by 60 tablet 0 0 Active tabletIndications: Angina mouth 2 (two) times pectoris daily. rosuvastatin 10 mg Take 1 tablet by 30 tablet 0 10/01/2019 Active tabletIndications: mouth at bedtime. Hyperlipidemia with target LDL less than 100 documented as of this encounter (statuses as of 11/14/2019) Active Problems Problem Noted Date Cellulitis 09/26/2019 CKD (chronic kidney disease) stage 3, GFR 30-59 ml/min 09/03/2018 Anemia, unspecified type 04/19/2016 Essential hypertension 08/13/2015 Hyperlipidemia with target LDL less than 100 6 Type 2 diabetes mellitus 08/13/2015 Pacemaker 08/13/2015 documented as of this encounter (statuses as of 11/14/2019) Social History Tobacco Use Types Packs/Day Years Used Date Never Smoker Smokeless Tobacco: Never Used Alcohol Use Drinks/Week oz/Week Comments Not Currently occasional Sex Assigned at Date Recorded Not on file COVID-19 Exposure Response Date Recorded In the last month, have you been in contact with No / Unsure 10/31/2019 9:05 AM CDT someone who was confirmed or suspected to have Coronavirus / COVID-19? documented as of this encounter Last Filed Vital Signs Not on filedocumented in this encounter Miscellaneous Notes Telephone Encounter - Tejal Turcios - 11/14/2019 2:[facility] documented in this encounter Plan of Treatment Date Type Specialty Care Team Description 12/02/2019 Office Visit Family Medicine Ken Roman MD [address] [place], [place] [phone] 03/05/2020 Office Visit Family Medicine Ken Roman MD [address] [place], [place] [address] Health Maintenance Due Date Last Done Comments HEPATITIS C (HCV) SCREEN 1945 EYE EXAM 1955 URINE MICROALBUMIN 1955 DTaP,Tdap,and Td Vaccines (1 - 1965 Tdap) COLON CANCER SCREENING FIT DNA 1996 EVERY 3 YEARS COLON CANCER SCREENING 1996 SIGMOIDOSCOPY EVERY 5 YEARS COLONOSCOPY 1996 Zoster Recombinant Vaccine 1996 (SHINGRIX) (1 of 2) Medicare Wellness Visit 12/23/2011 PNEUMOCOCCAL VACCINES 65+ (1 of 1 12/23/2011 - PPSV23) FOOT EXAM 10/18/2019 10/17/2018, 10/17/2018 INFLUENZA VACCINE (#1) 2019 LDL-C 03/07/2020 03/07/2019, 09/03/2018, 09/29/2016, Additional history exists HgA1C 04/02/2020 10/01/2019, 03/07/2019, 09/03/2018, Additional history exists COLON CANCER SCREENING ANNUAL 09/27/2020 09/28/2019 FIT/FOBT Colorectal Cancer Screening 09/27/2020 CREATININE (SERUM) 09/30/2020 10/01/2019, 09/30/2019, 09/29/2019, Additional history exists Depression Screening 10/30/2020 10/31/2019 documented as of this encounter Results Not on filedocumented in this encounter Insurance Payer Benefit Plan Subscriber ID Effective Phone Address Typ e / Group Dates MEDICARE MEDICARE PART [id number] 2011-Pres [phone] [address] X Medicare A & B [facility] 82 [id number] [place] [phone] [facility] [id number] 1983-Prese [phone] [address] PPO/POS SELECT nt [id number] [place] [address] documented as of this encounter
--- OUTSIDE RECORDS SUMMARY | 2019-11-18 14:28 | XMS REPORT | Summary of Care ---
:1945 Author Organization [facility] Address [address] [place] [address] Care Team Providers Name Role Phone Ken Roman MD Primary Care Provider Reason for Visit Reason Comments Notification Encounter Details Date Type Department Care Team Description 11/15/[address] [facility] Family Medicine Ken Vasquez MD Notification - [place] [address] [facility] [address] [place] [address] [place] [address] [place] [address] [phone] Allergies No Known Allergiesdocumented as of this encounter (statuses as of 11/18/2019) Medications Medication Sig Dispensed Refills Start Date End Date Status nitroglycerin 0.[address] 1 tablet 100 tablet 3 03/07/2019 Active sublingual under the tabletIndications: tongue every 5 Essential hypertension (five) minutes as needed for Chest pain. LOVAZA, wdfvm-0-bclz TAKE 2 CAPSULES 360 capsule 1 09/05/2019 [...] as of this encounter (statuses as of 11/18/2019) Active Problems Problem Noted Date Cellulitis 09/26/2019 CKD (chronic kidney disease) stage 3, GFR 30-59 ml/min 09/03/2018 Anemia, unspecified type 04/19/2016 Essential hypertension 08/13/2015 Hyperlipidemia with target LDL less than 100 6 Type 2 diabetes mellitus 08/13/2015 Pacemaker 08/13/2015 documented as of this encounter (statuses as of 11/18/2019) Social History Tobacco Use Types Packs/Day Years [...] this encounter Miscellaneous Notes Telephone Encounter - Ken Roman MD - 11/18/2019 9:18 AM CDTOK elephone Encounter - Aziza Boudreaux - 11/15/2019 1:[facility] stating that the patient will have PT 2 times a week for4 weeks. documented in this encounter Plan of Treatment Date Type Specialty Care Team Description 12/02/2019 Office Visit Family Medicine Ken Roman MD [address] [place] [address] 03/05/2020 Office Visit Family Medicine Ken Roman MD [address] [place], [place] [phone] Health Maintenance Due Date [...] e / Group Dates MEDICARE MEDICARE PART [id number] 2011-Pres [phone] [address] X Medicare A & B [facility] 82 [id number] [place] [id number] [facility] BC[facility] FED [id number] 1984-Prese [phone] [address] PPO/POS SELECT nt [id number] [place] [address] documented as of this encounter
[2019-11-18] MEDS ORDERED: NA CHLORIDE 0.9% 2,000 ML ONE (14:44)
[2019-11-18 14:58] LABS: Absolute Lymphocytes (CBC) 0.9 K/uL (0.7-4.9); Basophils % 0.2 % (0-1.3); Hematocrit 25.6 % (39.6-49.0); Lymphocytes % 4.3 % (15.3-44.8); MPV 8.6 fL (7.6-11.3); RBC Red Blood Cell Count 2.75 M/uL (4.33-5.43)
[2019-11-18 15:01] LABS: Protime INR 1.66
[2019-11-18] MEDS ORDERED: CEFTRIAXONE/SWI 1gm 1 GM/10 ML SYR ONE (15:06)
[2019-11-18 15:15] LABS: ALT/SGPT 41 U/L (12-78); AST/SGOT 54 U/L (15-37); Albumin 1.9 g/dL (3.4-5.0); Alkaline Phosphatase 17 U/L (45-117); Amylase 19 U/L (25-115); BUN Blood Urea Nitrogen 44 mg/dL (7-18); Bicarbonate 30 mmol/L (21-32); Bilirubin Direct 0.5 mg/dL (0-0.2); Bilirubin Total 0.8 mg/dL (0.2-1.0); CKMB Creatine Kinase MB < 1.0 ng/mL (0.3-3.6); Creatine Phosphokinase 21 U/L (39-308); Glucose Level 136 mg/dL (74-106); Lipase 71 U/L (73-393); Potassium 3.5 mmol/L (3.5-5.1); Protein, Total 7.2 g/dL (6.4-8.2); Sodium Level 131 mmol/L (136-145); Troponin (Emerg Dept Use Only) < 0.02 ng/mL (0.0-0.045)
--- NOTE | 2019-11-18 15:30 | ER ---
Nurse's Notes [facility] Name: Bc Hui Age: 73 yrs Sex: Male : 1945 Arrival Date: 11/18/2019 Time: 14:12 Bed 8 Private MD: Ken Roman S Diagnosis: Sepsis, unspecified organism;Hypotension, unspecified;Delirium due to known physiological condition;Failure of outpatient therapy for UTI. Presentation: 11/17 14:18 Chief complaint: Spouse and/or significant other states: was brought in Monday a week iw ago , had a UTI and had sepsis, was sent home on Cipro for ten days, still having low grade fever, chills, spoke to Dr. Leija and was told his culture showed he needed a different antibiotic. Also fell today because he was too weak to get from chair to walker. Coronavirus screen: At this time, the client does not indicate any symptoms associated with coronavirus-19. Ebola Screen: Patient negative for fever greater than or equal to 101.5 degrees Fahrenheit, and additional compatible Ebola Virus Disease symptoms Patient denies exposure to infectious person. Patient denies travel to an Ebola-affected area in the 21 days before illness onset. No symptoms or risks identified at this time. Initial Sepsis Screen: Does the patient meet any 2 criteria? Systolic BP < 90 mmHg. HR > 90 bpm. Does the patient have a suspected source of infection? Yes: Dysuria/Frequency/Urgency/UTI. Risk Assessment: Do you want to hurt yourself or someone else? Patient reports no desire to harm self or others. Onset of symptoms was November 10, 2019. 14:18 Method Of Arrival: Wheelchair iw 14:18 Acuity: SAJAN 2 iw Historical: - Allergies: 14:22 No Known Allergies; iw - Home Meds: 14:22 aspirin 81 mg Oral chew [Active]; iw - PMHx: 14:22 Diabetes - NIDDM; High Cholesterol; Stomach ulcer; iw - PSHx: 14:22 open heart; pacemaker; left rotator cuff; back; left wrist; Heart stents; iw - Immunization history:: Adult Immunizations up to date. - Social history:: Smoking status: . - Family history:: not pertinent. - Hospitalizations: : No recent hospitalization is reported. Screenin:30 Abuse screen: Denies threats or abuse. Nutritional screening: No deficits noted. em Tuberculosis screening: No symptoms or risk factors identified. Fall Risk Secondary diagnosis (15 points) impaired mobility, IV access (20 points). Total Lim Fall Scale indicates Low Risk Score (25-44 pts). Side Rails Up X 2 Frequent Obs/Assesments occuring Family Present and informed to notify staff if they need to leave bedside. Assessment: 14:30 General: Appears in no apparent distress. uncomfortable, Behavior is cooperative, flat, em Reports fever for > 3 days. Pain: Complains of pain in lumbar area. Neuro: Level of Consciousness is awake, alert, obeys commands, Oriented to person, place, time, situation, Appropriate for age. Cardiovascular: Capillary refill < 3 seconds Patient's skin is warm and dry. Respiratory: Airway is patent Respiratory effort is even, unlabored, Respiratory pattern is regular, symmetrical. GI: Patient currently denies nausea. Derm: Skin is intact, is fragile, is thin, Skin is pink, warm \T\ dry. Musculoskeletal: Range of motion: intact in all extremities. 14:55 Reassessment: IV infiltrated after IV ABX, IV DC'd intact, applied pressure dressing. em 16:29 Reassessment: Patient appears in no apparent distress at this time. Patient and/or em family updated on plan of care and expected duration. Pain level reassessed. Patient is alert, oriented x 3, equal unlabored respirations, skin warm/dry/pink. 17:26 Reassessment: ADMIT COMPLETE, REPORT TO [facility] FOR 407. bp Vital Signs: 14:18 BP 86 / 42; Pulse 102; Resp 16 S; Temp 97.3; Pulse Ox 98% on R/A; Weight 103.87 kg; iw Height 5 ft. 9 in. (175.26 cm); Pain 5/10; 14:49 BP 128 / 64; Pulse 103; Resp 20; Pulse Ox 99% on R/A; em 16:02 BP 122 / 70; Pulse 110; Resp 15; Pulse Ox 96% on R/A; em 17:01 BP 125 / 59; Pulse 116; Resp 15; Pulse Ox 99% ; bp 14:18 Body Mass Index 33.82 (103.87 kg, 175.26 cm) iw ED Course: 14:12 Patient arrived in ED. mr 14:13 Ken Roman MD is Private Physician. mr 14:21 Triage completed. iw 14:23 Arm band placed on. iw 14:24 Erick Lau, RN is Primary Nurse. em 14:30 Patient has correct armband on for positive identification. Placed in gown. Bed in low em position. Call light in reach. Side rails up X2. nursing assoc on. Pulse ox on. NIBP on. 14:34 Oziel Ram MD is Attending Physician. rn 14:40 Initial lab(s) drawn, by me, sent to lab. Inserted saline lock: 22 gauge in right em antecubital area, using aseptic technique. Blood collected. 15:01 Chest Single View XRAY In Process Unspecified. EDMS 15:28 Lamont Ram MD is Hospitalizing Provider. rn 15:40 Inserted saline lock: 22 gauge in left forearm, using aseptic technique. iw 15:48 EKG done, by ED staff, reviewed by Oziel Ram MD. dh3 17:26 No provider procedures requiring assistance completed. Patient admitted, IV remains in bp place. Administered Medications: 14:46 Not Given (Physician Discretion): NS 0.9% (30 ml/kg) 30 ml/kg IV at bolus once; Sepsis em Protocol 14:58 Drug: Rocephin 1 grams Route: IV; Rate: calculated rate; Site: right antecubital; em 16:12 Follow up: Response: No adverse reaction; IV Status: Completed infusion; IV Intake: 10mlem 15:40 Drug: NS 0.9% 500 ml Route: IV; Rate: bolus; Site: left forearm; iw 17:28 Follow up: IV Status: Completed infusion; IV Intake: 500ml bp 16:45 Drug: [place] 5 mg-325 mg 1 tabs Route: PO; em 17:29 Follow up: Response: Pain is decreased bp Intake: 16:12 IV: 10ml; Total: 10ml. em 17:28 IV: 500ml; Total: 510ml. bp Outcome: 15:29 Decision to Hospitalize by Provider. rn 17:26 Admitted to Med/surg accompanied by tech, family with patient, via stretcher, room 407, bp with chart, Report called to [facility] 17:26 Condition: stable 17:26 Instructed on the need for admit. 17:59 Patient left the ED. bp Signatures: Dispatcher [employer] EDGayle Barahona mr Sid, Erick, RN Jayna Schaefer, Oziel Oglesby RN, MD MD rn Herrera, [facility] Nitin Turcios, UNA RN bp
--- NOTE | 2019-11-18 15:30 | EDPHYS ---
Physician Documentation [facility] Name: Bc Hui Age: 73 yrs Sex: Male : 1945 Arrival Date: 11/18/2019 Time: 14:12 Bed 8 Private MD: Ken Roman S ED Physician Oziel Ram HPI: 11/17 15:24 This 73 yrs old Male presents to ER via Wheelchair with complaints of rn Infection, Altered Mental Status. 15:24 The patient presents with confusion. Onset: The symptoms/episode began/occurred 1 rn week(s) ago. Possible causes: sepsis. Current symptoms: In the emergency department the patient's symptoms are unchanged from the initial presentation. The patient has not experienced similar symptoms in the past. The patient has been recently seen by a physician:. Reports in and out of hospitals recently, told by Dr. Leija to return here for failed outpt therapy of UTI, sent home 10 days ago with cipro, and told is resistant, states that he is confused, and generalized weakness. . Historical: - Allergies: 14:22 No Known Allergies; iw - Home Meds: 14:22 aspirin 81 mg Oral chew [Active]; iw - PMHx: 14:22 Diabetes - NIDDM; High Cholesterol; Stomach ulcer; iw - PSHx: 14:22 open heart; pacemaker; left rotator cuff; back; left wrist; Heart stents; iw - Immunization history:: Adult Immunizations up to date. - Social history:: Smoking status: . - Family history:: not pertinent. - Hospitalizations: : No recent hospitalization is reported. 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 Exam: 15:24 Constitutional: Overweight male, no acute distress Head/Face: Normocephalic, rn atraumatic. ENT: dry MM Cardiovascular: tachycardic, regular Respiratory: No increased work of breathing, no retractions or nasal flaring. Abdomen/GI: soft, non-tender Skin: Warm, dry. Pre-patellar wound from recent fall dressed, clean and dry, no drainage or erythema. + shallow decubitus ulcer present, also well-appearing. MS/ Extremity: Pulses equal, no cyanosis. 1+ edema bilateral lower ext Neuro: Awake and alert, GCS 15, oriented to person, place, time, and situation. Cranial nerves II-XII grossly intact. Motor strength 5/5 in all extremities. Sensory grossly intact. Cerebellar exam normal. Vital Signs: 14:18 BP 86 / 42; Pulse 102; Resp 16 S; Temp 97.3; Pulse Ox 98% on R/A; Weight 103.87 kg; iw Height 5 ft. 9 in. (175.26 cm); Pain 5/10; 14:49 BP 128 / 64; Pulse 103; Resp 20; Pulse Ox 99% on R/A; em 16:02 BP 122 / 70; Pulse 110; Resp 15; Pulse Ox 96% on R/A; em 17:01 BP 125 / 59; Pulse 116; Resp 15; Pulse Ox 99% ; bp 14:18 Body Mass Index 33.82 (103.87 kg, 175.26 cm) iw MDM: 14:34 Patient medically screened. rn 15:24 Differential Diagnosis: sepsis, UTI, volume depletion. Data reviewed: vital signs, rn nurses notes, lab test result(s), and as a result, I will admit patient. Counseling: I had a detailed discussion with the patient and/or guardian regarding: the historical points, exam findings, and any diagnostic results supporting the discharge/admit diagnosis, lab results, the need for further work-up and treatment in the hospital. Response to treatment: the patient's symptoms have mildly improved after treatment, and as a result, I will admit patient. Admission orders: after a detailed discussion of the patient's condition and case, the admit orders are written by me. ED course: Pt admitted to Dr. Ram for sepsis, delirium, failure outpt therapy. . 11/17 14:27 Order name: Amylase, Serum; Complete Time: 15:20 em 11/17 14:27 Order name: Basic Metabolic Panel; Complete Time: 15:20 em 11/17 14:27 Order name: Blood Culture Adult (2) em 11/17 14:27 Order name: CBC with Diff; Complete Time: 16:58 em 11/17 14:27 Order name: Ckmb; Complete Time: 15:20 em 11/17 14:27 Order name: CPK; Complete Time: 15:20 em 11/17 14:27 Order name: Lactate; Complete Time: 15:20 em 11/17 14:27 Order name: LFT's; Complete Time: 15:20 em 11/17 14:27 Order name: Lipase; Complete Time: 15:20 em 11/17 14:27 Order name: Procalcitonin; Complete Time: 16:58 em 11/17 14:27 Order name: Protime (+inr); Complete Time: 15:20 em 11/17 14:27 Order name: Ptt, Activated; Complete Time: 15:20 em 11/17 14:27 Order name: Troponin (emerg Dept Use Only); Complete Time: 15:20 em 11/17 14:27 Order name: Urine Microscopic Only em 11/17 14:27 Order name: Chest Single View XRAY; Complete Time: 15:45 em 11/17 14:27 Order name: Accucheck; Complete Time: 14:47 em 11/17 14:27 Order name: Cardiac monitoring; Complete Time: 14:47 em 11/17 14:27 Order name: EKG - Nurse/Tech; Complete Time: 15:54 11/17 14:27 Order name: IV Saline Lock - Large Bore; Complete Time: 14:47 em 11/17 14:27 Order name: Labs collected and sent; Complete Time: 14:47 em 11/17 14:27 Order name: O2 Per Protocol; Complete Time: 14:47 em 11/17 14:27 Order name: O2 Sat Monitoring; Complete Time: 14:47 em 11/17 14:36 Order name: Urine Culture rn 11/17 15:09 Order name: Manual Differential; Complete Time: 16:58 EDMS 11/17 16:46 Order name: CONS Physician Consult EDMS Administered Medications: 14:46 Not Given (Physician Discretion): NS 0.9% (30 ml/kg) 30 ml/kg IV at bolus once; Sepsis em Protocol 14:58 Drug: Rocephin 1 grams Route: IV; Rate: calculated rate; Site: right antecubital; em 16:12 Follow up: Response: No adverse reaction; IV Status: Completed infusion; IV Intake: 10mlem 15:40 Drug: NS 0.9% 500 ml Route: IV; Rate: bolus; Site: left forearm; iw 17:28 Follow up: IV Status: Completed infusion; IV Intake: 500ml bp 16:45 Drug: Wayland 5 mg-325 mg 1 tabs Route: PO; em 17:29 Follow up: Response: Pain is decreased bp Disposition: 11/18/19 15:29 Hospitalization ordered by Lamont Ram for Inpatient Admission. Preliminary diagnosis are Sepsis, unspecified organism, Hypotension, unspecified, Delirium due to known physiological condition, Failure of outpatient therapy for UTI.. - Bed requested for Telemetry/MedSurg (Inpatient). - Status is Inpatient Admission. bp - Condition is Stable. - Problem is an ongoing problem. - Symptoms have improved. Signatures: Dispatcher [employer] EDMS Silvina Manning Edgar, RN RN em Williams, Irene, RN RN Oziel Ram MD MD rn Peltier, Brian, RN RN bp Corrections: (The following items were deleted from the chart) 16:54 15:29 Hospitalization Ordered by Lamont Ram MD for Inpatient Admission. Preliminary bd diagnosis is Sepsis, unspecified organism; Hypotension, unspecified; Delirium due to known physiological condition; Failure of outpatient therapy for UTI.. Bed requested for Telemetry/MedSurg (Inpatient). Status is Inpatient Admission. Condition is Stable. Problem is an ongoing problem. Symptoms have improved. rn 17:59 16:54 11/18/2019 15:29 Hospitalization Ordered by Lamont Ram MD for Inpatient bp Admission. Preliminary diagnosis is Sepsis, unspecified organism; Hypotension, unspecified; Delirium due to known physiological condition; Failure of outpatient therapy for UTI.. Bed requested for Telemetry/MedSurg (Inpatient). Status is Inpatient Admission. Condition is Stable. Problem is an ongoing problem. Symptoms have improved. bd
--- NOTE | 2019-11-18 15:35 | RAD REPORT ---
EXAM DESCRIPTION: RAD - Chest Single View - 11/18/2019 3:01 pm CLINICAL HISTORY: MALAISEfrom UTI, low-grade fever COMPARISON: Single-view chest November 07 TECHNIQUE: AP portable chest image was obtained 11/18/2019 3:01 pm . FINDINGS: No peripheral mass or consolidation. Retrocardiac left base assessment is limited. Overall aeration appears improved from the prior study. Cardiac silhouette is enlarged but less prominent th an prior study. Vasculature within normal limits. Defibrillator is in place. Sternotomy wires and mid thoracic surgical hardware in place. No measurable pleural effusion and no pneumothorax. No acute bon y abnormality seen. No acute aortic findings suspected. IMPRESSION: No acute cardiopulmonary process seen. Heart size and vasculature are less prominent and there is overall better aeration of the lung alonzo .
[2019-11-18 16:26] LABS: Anisocytosis 1+; Blood Morphology Comment NOTED (NOT SEEN); Hypochromasia 1+; Platelet Estimate INCR; Polychromasia 1+
[2019-11-18] MEDS ORDERED: HYDROCODONE/APAP 5/325 MG TAB ONE (16:35)
--- NOTE | 2019-11-18 16:51 | P.HP ---
Patient History Date of Service: 11/18/19 History of Present Illness: 73-year-old male presented to the ED with confusion, generalized weakness, overall not feeling well, lower back pain. He states he was seen here approximately the 10 days ago and was diagnosed with a UTI, discharged home with ciprofloxacin. He states his symptoms were waxing and waning, , but never fully resolved. He states he was seen by home health today to felt he did not look right, and so Dr. Leija was reached. The patient was advised to present to the ED. Review of his cultures showed that he was growing MSSA and Enterobacter. Enterobacter was resistant to ciprofloxacin. On presentation to the ED, patient reportedly appeared septic, hypotensive (86/42), and tachycardic (100-110), afebrile. Given his significant CHF history, he was not given the sepsis bolus. He did receive a 500 cc bolus of normal saline. Labwork notable for: Leukocytosis (20.4), anemia (8.5), creatinine: 1.98, lactate: 1.4, pro calcitonin: 0.46; CXR: No acute cardiopulmonary process seen. Of note patient also reports weight loss of 40 lb over the past few months, which he attributes to diuresis Allergies No Known Allergies Allergy (Verified 03/09/18 11:32) Home Medications: Fenofibric Acid (Choline) [Fenofibric Acid] 135 mg PO DAILY 03/07/17 Furosemide 40 mg PO DAILY 03/07/17 Nitroglycerin [Nitrostat] 0.3 mg PO PRN PRN 03/07/17 Olympia-3 Fatty Acids [Olympia-3] 1 gm PO DAILY 03/07/17 Omeprazole [Prilosec] 40 mg PO DAILY 03/07/17 Pioglitazone HCl 45 mg PO DAILY 03/07/17 Ranolazine [Ranexa] 1 gm PO DAILY 03/07/17 Rosuvastatin [Crestor*] 10 mg PO DAILY 03/07/17 lisinopriL [Lisinopril] 10 mg PO DAILY 03/07/17 Aspirin [Aspirin EC 81 MG] 81 mg PO DAILY 06/29/17 Cholecalciferol (Vitamin D3) [Vitamin D 1000 Iu Tab] 2,000 unit PO DAILY 06/29/17 - Past Medical/Surgical History Diabetic: Yes -: Diabetes mellitus type 2 -: HTN -: CAD s/p CABG -: CHF s/p pacemaker/debrillator -: Anemia of chronic disease -: History of DVT -: CKD 3 -: Recent GI bleed due to the gastric ulcers -: CABGx3 -: Coronary stent -: Back surgery -: Right shoulder surgery - Family History Father -: Heart disease - Social History Smoking Status: Never smoker Alcohol use: No CD- Drugs: No Review of Systems 10-point ROS is otherwise unremarkable Physical Examination - Physical Exam General: Alert, Oriented x3, Mild distress, Other (Weak) HEENT: Sclerae nonicteric Neck: JVD not distended Respiratory: Clear to auscultation bilaterally Cardiovascular: Regular rate/rhythm, Normal S1 S2, Edema (2+ bilateral lower extremities to the knees) Gastrointestinal: Soft and benign, Non-distended, No tenderness Musculoskeletal: No erythema, No tenderness Integumentary: No rashes Neurological: Normal speech, Normal affect - Studies Laboratory Data (last 24 hrs) 11/18/19 14:40: PT 19.4 H, INR 1.66, APTT 34.3 11/18/19 14:40: WBC 20.4 H* D, Hgb 8.5 L, Hct 25.6 L, Plt Count 477 H 11/18/19 14:40: Sodium 131 L, Potassium 3.5, BUN 44 H, Creatinine 1.98 H, Glucose 136 H, Total Bilirubin 0.8, AST 54 H, ALT 41, Alkaline Phosphatase 17 L, Amylase 19 L, Lipase 71 L Assessment and Plan - Advance Directives Does patient have a Living Will: No Does patient have a Durable POA for Healthcare: No Physician Review Additional Text: Sepsis secondary to urinary tract infection CAD s/p CABG x3, pacemaker/defibrillator CHF, unknown type CKD 3 DM 2 HTN Anemia of chronic disease. Recent GI bleed, due to the GI ulcers Prior DVT treated with Coumadin for 6 months HLD Sepsis secondary to urinary tract infection -leukocytosis, hypotensive, tachycardic -did not receive sepsis bolus due to significant CHF history, but did receive 500 cc bolus -no lactic acidosis, will repeat lactate -reviewed cultures from 10 days ago, MSSA & Enterobacter, but sensitive to Bactrim, however did not give due to his poor kidney function -reviewed sensitivities with infectious disease, Dr. Cooper, who agreed with renally dosed and ancef and levaquin -new cultures obtained in the ED, follow -blood pressure improved with IV fluids 40 lb weight loss in the past 4 months -patient attributes this to diuresis -he does have history of for CHF, however concerning for underlying malignancy CKD 3 -appears to be at baseline, however will review further -consulted nephrology, Dr. Leija CAD s/p CABG x3, pacemaker/defibrillator CHF, unknown type -confirm home meds and continue, except for Bumex -consult cardiology DM 2 -insulin sliding scale, Accu-Cheks a.c. HS HTN -confirm home meds, hold in setting of sepsis, low blood pressure Anemia of chronic disease -history of CKD, is receiving Procrit and IV iron as an outpatient -check H&H in a.m. Recent GI bleed, due to the GI ulcers -patient reports no active bleed, no blood in stool, no epigastric pain -continue home Protonix Prior DVT treated with Coumadin for 6 months -per chart review, patient not on any anticoagulation, likely provoked HLD -confirm and continue home med Dispo: anticipate hospitalizatoin > 2days Time Spent Managing Pts Care (In Minutes): 55
[2019-11-18 17:38] VITALS: BMI 33.6
[2019-11-18] MEDS: CEFAZOLIN/SWI 1gm 1 GM/10 ML SYR IVP SCH ×2 (18:05→23:59)
[2019-11-18] MEDS: ENOXAPARIN 40 MG/0.4 ML SQ SCH (18:05)
[2019-11-18] MEDS: Levofloxacin 750mg IV 750 MG/150 ML BAG IV SCH (18:05)
--- NOTE | 2019-11-18 18:16 | RAD REPORT ---
EXAM DESCRIPTION: CT - Stone Protocol - 11/18/2019 5:49 pm CLINICAL HISTORY: ckd uti COMPARISON: Chest Single View dated 11/18/2019 TECHNIQUE: Axial [address] imaging of the abdomen and pelvis was performed without IV contrast. No IV contrast was given because of allergy, abnormal renal function, patient refusal or physician re quest. No oral contrast administered. All CT scans are performed using dose optimization technique as appropriate and may include automated exposure control or mA/KV adjustment according to patient size. FINDINGS: Right lung base is clear. Parenchymal opacification abutting the posterior left hemidiaphr agm in the gutter is believed to be atelectasis rather than infiltrate. Heart size is mildly enlarged . No pleural effusion or pericardial effusion. Bilateral gynecomastia changes are present. Sternotomy wires are in place. Multiple old rib fractures noted on the right. Lateral left fifth rib fractures present uncertain in age. There is a focal lucent component with this rib fracture. Patient has additional all lower left old rib fractures. Oval lucent focus present posterolateral right eigh th rib and there is slight thinning of the posterior cortex posterior right ninth rib. Advanced degenerative change seen in the lower thoracic spine and lumbar spine. Facet degenerative ch anges severe. There are numerous lucent areas in the pelvis without a large destructive focus identif iable. The liver, spleen and pancreas show no suspicious findings on non-contrast imaging. Gallbladder and b iliary tree are also without suspicious finding. No hydronephrosis or suspicious renal mass. No significant adrenal finding. Isodense renal masses an d pyelonephritis cannot be excluded in the absence of IV contrast. The urinary bladder is without sig nificant finding. No dilated bowel loops or bowel wall thickening. No free air, free fluid or inflammatory stranding. Small left inguinal fat filled hernia is present. No omental thickening. Along the lateral margin of the left common iliac artery there is a 4.4 x 2.5 centimeter soft tissue mass. A few adjacent smaller masses are present along the superior and inferior margin. No other aortoiliac masses. The masses ap pear to be distinct from the vasculature. Aneurysm is not suspected. IMPRESSION: A 4.4 x 2.5 centimeter soft tissue mass is present adjacent to the lateral margin left c ommon iliac artery with a few additional smaller adjacent masses. No other similar mass or lymphadenopathy seen. Patient has advanced degenerative change in the spine along with multiple old rib fractures. In the p angelika and at least 2 ribs there are multiple small lucent areas present. The 4.4 centimeter mass is suspicious for malignancy. Metastatic lymphadenopathy or lymphoma would be possibilities. A primary etiology is not evident on this examination. Extramedullary hematopoiesis w ould be possible. The patient has multiple small bony lucent changes could be focal osteopenic change or lytic metastas es. Multiple myeloma would be a consideration. Full assessment is limited is the absence of IV contrast.
--- NOTE | 2019-11-18 18:56 | P.INFCA ---
Sepsis Focused Assessment - Sepsis Screen Result Severe Sepsis: Positive Septic Shock: Negative - Evaluation Current stage of sepsis: Severe sepsis - Vital Signs Reviewed: Yes Temperature: 97.3 F Heart rate: 116 Blood Pressure: 125/59 Respiratory Rate: 15 O2 Sat by Pulse Oximetry: 93 (RA) - Examination Date exam was performed: 11/18/19 Time exam was performed: 18:30 Heart: Regular rate/rhythm, Tachycardia Lungs: Clear bilaterally Peripheral pulses: 3+ Normal Peripheral pulse location: Posterior tibial Capillary refill: <2 Seconds Skin examination: Normal turgor Comments: In no distress, alert and oriented x3, stable
[2019-11-18] MEDS ORDERED: POTASSIUM CL SA 10 MEQ TAB PO ONE (20:00)
[2019-11-18] MEDS: INSULIN -REGULAR HUMAN 50 UNIT/0.5 ML ML SQ SCH (20:13)
[2019-11-18 21:49] LABS: Urine Bacteria <20 /HPF (NONE SEEN); Urine RBC <5 /HPF (NONE SEEN)
[2019-11-18 21:50] LABS: Urine Culture Reflex Order NOT NEEDED; Urine Mucus 1+ /HPF (NONE SEEN)
--- NOTE | 2019-11-18 23:59 | CON ---
Date of Consultation: 11/18/2019 Chief Complaint: Chronic kidney disease, history of acute kidney injury. History Of Present Illness: The patient recently was admitted to the [facility] for congestiv e heart failure and acute kidney injury. Renal function has been gradually improving. The patient h as multiple medical problems including history of chronic kidney disease stage 3, hyperlipidemia, shonda betes mellitus with renal manifestation. Recently, he developed some confusion and went to emergency room, was found to have urinary tract infection, was started on Cipro. The patient's overall status improved and today Home Health nurse called me that the patient is confused and he has a low-grade f ever. I recommended to go back to emergency room to review urine culture and previous culture showed Staph aureus urinary tract infection, showed Enterobacter, which was present on the urine culture re cently obtained. The patient is admitted to the hospital because of progressively worse altered ment al status. He has some shortness of breath and COVID test was obtained and pending. Previously, blo od culture showed Staph aureus with methicillin-sensitive Staph aureus. The patient was advised to g o to emergency room when blood cultures revealed Staph aureus. I spoke with the ER doctor, Dr. Justin morris on November 10, although the patient was reluctant to go to the emergency room. Staph aureus co ag positive was resistant to Cipro and urine culture obtained on November 07 in the emergency room s howed enterobacter, which was sensitive to levofloxacin and sensitive to Cipro. The patient is admitted to the hospital because of possible sepsis. White count is severely elevated . Leukocytosis was 20.4. Creatinine was 1.98, which appears to be at his previous baseline and lact ate level was 1.4. Calcitonin 0.4. Chest x-ray did not show acute coronary process. Of note, the p atient lost some weight over last few months. The patient has history of chronic anemia and has been treated with MELISSA and was seen by receivable executive. Past Medical History: Diabetes mellitus type 2, hypertension, coronary artery disease, status post C ABG, congestive heart failure, pacemaker and defibrillator, anemia of chronic kidney disease, history of DVT, CKD 3, recent GI bleeding due to gastric ulcers, coronary stent, back surgery, right shoulde r surgery. Family History: Father had heart disease. Social History: Denies tobacco, alcohol, or illicit drugs. Review of Systems: The patient cannot provide review of systems as he has some confusion. He denies pain or syncope. D enies hematuria, dysuria, or renal colic. Denies skin rashes or gout. Physical Examination: General: The patient is in mild distress, although he denies pain. Eyes: Anicteric sclerae. EOMI. Ears, Nose, Mouth, and Throat: Oral mucosa moist. No pallor. Neck: Supple. No bruits. Lungs: Diminished breath sounds at bases. Heart: S1, S2. Abdomen: Soft, benign. Extremities: Slight edema. Laboratory Data: PT 19.4, INR 1.66, PTT 34.3. WBC 20.4, hemoglobin 8.5, hematocrit 25.6, platelet c ount 477. Sodium 141, potassium 3.5, BUN 44, creatinine 1.98, glucose 136, total bilirubin 0.8, lipa se 71. Impression And Plan: 1.Sepsis secondary to urinary tract infection. Although, the patient had blood culture done during this admission and plan is to assess for bacteremia, continue broad-spectrum antibiotics. Pending cu lture to verify the source of the infection. Previously, the patient had urinary tract infection and was treated with Cipro. 2.Status post pacemaker and defibrillator. The patient may need to be ruled out for endocarditis. 3.Anemia of chronic kidney disease. Continue MELISSA. 4.Hypertension. The patient is on RISA inhibitor for congestive heart failure, chronic cardiorenal s yndrome, and diabetes mellitus with renal manifestation. Monitor electrolytes closely. 5.Hyponatremia, hypoosmolar. Continue p.o. fluid restriction. The patient although may benefit from sodium chloride 0.9% normal saline infusion in view of ongoing seps is. CHARLES/MODL Voice ID: [id number] Report ID: [id number]
[2019-11-19 04:00] LABS: Absolute Lymphocytes (CBC) 1.1 K/uL (0.7-4.9); Basophils % 0.2 % (0-1.3); Hematocrit 22.9 % (39.6-49.0); MPV 8.9 fL (7.6-11.3); Protime INR 1.83
[2019-11-19 04:22] LABS: Albumin 1.6 g/dL (3.4-5.0); Bilirubin Total 0.6 mg/dL (0.2-1.0); Phosphorus 2.1 mg/dL (2.5-4.9); Potassium 3.2 mmol/L (3.5-5.1); Protein, Total 6.7 g/dL (6.4-8.2)
[2019-11-19 04:31] LABS: Magnesium 1.3 mg/dL (1.8-2.4)
[2019-11-19] MEDS ORDERED: Magnesium Sulfate 2gm IVPB 2 G/50 ML BAG IV ONE (04:37)
[2019-11-19] MEDS ORDERED: POTASSIUM CL SA 10 MEQ TAB PO ONE ×2 (04:37→19:00)
[2019-11-19] MEDS: POTASS/SODIUM PHOSPHATE 1 PKT POWD.PACK PO SCH ×3 (06:17→08:14)
[2019-11-19] MEDS: INSULIN -REGULAR HUMAN 50 UNIT/0.5 ML ML SQ SCH ×4 (07:30→21:00)
[2019-11-19] MEDS: FENOFIBRATE 160 MG TAB PO SCH (08:15)
[2019-11-19] MEDS: LORATADINE 10 MG TAB PO SCH (08:15)
[2019-11-19] MEDS: PANTOPRAZOLE 40MG TABLET PO SCH ×2 (08:15→17:19)
[2019-11-19] MEDS: ASPIRIN EC 81 MG TAB PO SCH (08:16)
[2019-11-19] MEDS: ENOXAPARIN 40 MG/0.4 ML SQ SCH (08:16)
[2019-11-19] MEDS: CEFAZOLIN/SWI 1gm 1 GM/10 ML SYR IVP SCH ×2 (08:16→17:19)
[2019-11-19] MEDS: ISOSORBIDE MONO SR 60 MG TAB PO SCH (08:42)
[2019-11-19] MEDS: HYDROCODONE/APAP 10/325 TAB PO PRN ×3 (09:27→21:30)
[2019-11-19 12:28] LABS: Magnesium 1.6 mg/dL (1.8-2.4); Potassium 3.7 mmol/L (3.5-5.1)
--- NOTE | 2019-11-19 13:02 | P.PN ---
Subjective Date of Service: 11/19/19 Subjective Pt with CKD III, DM, HTN, CAD and CHF was on bumex pt presented with AMS and fever pt had cultures done on 11/07 showed MSSA< pt advised to go to ER but refused Today No new domplaints AAOX3 will resume Bumex , but once daily Mg and K replaced Physical exam general: AAOX3, NAD , obese Neck; Supple, No elevated JVD hear: RRR, normal S1,2 no murmur or rub Chest: CTAB, no rlaes or wheezes Abdomen: Soft , Nt Extremities trace edema , no ulcer A/P CKD III due to DM and HTN Cr stabkle will resume Bumex renal dose meds Pseudohyponatremia corrected BS ~135 fluid restriction hypokalemia and hypomagenesemia replace prn MSSA bacteremia cont ABx DM as per primary team hx of CHF will resume bumex Physical Examination - Vital Signs Temperature: 97.1 F Blood Pressure: 110/56 Pulse: 98 Respirations: 18 Pulse Ox (%): 100 - Studies Laboratory Data (last 24 hrs) 11/18/19 14:40: PT 19.4 H, INR 1.66, APTT 34.3 11/18/19 14:40: WBC 20.4 H* D, Hgb 8.5 L, Hct 25.6 L, Plt Count 477 H 11/18/19 14:40: Sodium 131 L, Potassium 3.5, BUN 44 H, Creatinine 1.98 H, Glucose 136 H, Total Bilirubin 0.8, AST 54 H, ALT 41, Alkaline Phosphatase 17 L, Amylase 19 L, Lipase 71 L Microbiology Data (last 24 hrs): 11/18/19 14:36 Blood - Blood Anaerobic Blood Culture - Final 11/18/19 14:36 Blood - Blood Gram Stain - Final
--- NOTE | 2019-11-19 13:13 | ECHO ---
HEIGHT: 5 ft 9 in WEIGHT: 228 lb 0 oz DATE OF STUDY: 11/19/[address]: fermin hadley 2-DIMENSIONAL: YES M.MODE: YES DOPPLER: YES COLOR FLOW: YES TDS: PORTABLE: DEFINITY: BUBBLE STUDY: DIAGNOSIS: CONGESTIVE HEART FAILURE WITH HYPOTENSION CARDIAC HISTORY: CATHERIZATION: YES SURGERY: YES PROSTHETIC VALVE: NO PACEMAKER: YES MEASUREMENTS (cm) DIASTOLIC (NORMALS) SYSTOLIC (NORMALS) IVSd 1.1 (0.6-1.2) LA Diam 3.8 (1.9-4.0) LVEF 31% LVIDd 6.1 (3.5-5.7) LVIDs 5.2 (2.0-3.5) %FS 15% LVPWd 1.1 (0.6-1.2) Ao Diam 3.2 (2.0-3.7) 2 DIMENSIONAL ASSESSMENT: RIGHT ATRIUM: NORMAL LEFT ATRIUM: DILATED RIGHT VENTRICLE: NORMAL LEFT VENTRICLE: DILATED TRICUSPID VALVE: NORMAL MITRAL VALVE: NORMAL PULMONIC VALVE: NORMAL AORTIC VALVE: NORMAL PERICARDIAL EFFUSION: NONE AORTIC ROOT: NORMAL LEFT VENTRICULAR WALL MOTION: SEVERE GLOBAL HYPOKINESIS. DOPPLER/COLOR FLOW: MILD MITRAL AND TRICUSPID REGURGITATION. COMMENTS: SEVERE GLOBAL HYPOKINESIS. EJECTION FRACTION 30-35%. MILD MITRAL AND TRICUSPID REGURGITATION. NORMAL RIGHT VENTRICULAR SYSTOLIC PRESSURE. TECHNOLOGIST: AMADOU CAZARES
--- NOTE | 2019-11-19 14:36 | P.CNS ---
Date of Consult: 11/19/19 Subjective: Patient is a 73 year old male who present with weakness. Patient was seen in the ED approximately 10 days ago and was found to have a UTI and was treated with a 10 day course of Rocephin with little improvement. Review of cultures showed that he was growing MSSA and Enterobacter and Enterobacter was resistant to Ciprofloxacin. Patient reports taking 3-4 falls in the past several months due to weakness. Patient still with urinary symptoms and a left knee wound which I have been consulted for. - Past Medical/Surgical History Diabetic: Yes -: Diabetes mellitus type 2 -: HTN -: CAD s/p CABG -: CHF s/p pacemaker/debrillator -: Anemia of chronic disease -: History of DVT -: CKD 3 -: Recent GI bleed due to the gastric ulcers -: CABGx3 -: Coronary stent -: Back surgery -: Right shoulder surgery - Family History Father -: Heart disease - Social History Smoking Status: Never smoker Alcohol use: No CD- Drugs: No Allergies No Known Allergies Allergy (Verified 03/09/18 11:32) Active Medications Hydrocodone Bitart/Acetaminophen ([place] 10/325) 1 tab PO Q6H PRN PRN Reason: Pain scale 5-7 (Moderate) Stop: 12/19/19 09:18 Last Admin: 11/19/19 09:27 Dose: 1 tab Documented by: Aspirin (Aspirin Ec) 81 mg PO DAILY [facility] Stop: 12/19/19 09:01 Last Admin: 11/19/19 08:16 Dose: 81 mg Documented by: Bumetanide (Bumex) 2 mg PO DAILY [facility] Stop: 12/20/19 09:01 Enoxaparin Sodium (Lovenox 40 Mg Inj) 40 mg SQ DAILY [facility] Stop: 12/18/19 18:01 Last Admin: 11/19/19 08:16 Dose: 40 mg Documented by: Fenofibrate (Tricor) 160 mg PO DAILY [facility] Stop: 12/19/19 09:01 Last Admin: 11/19/19 08:15 Dose: 160 mg Documented by: Cefazolin Sodium (Ancef 1 Gm/10 Ml Swi Ivp) 1 gm in 10 mls @ 600 mls/hr IVP Q8HR [facility]; Protocol Stop: 12/18/19 18:01 Last Admin: 11/19/19 08:16 Dose: 10 mls Documented by: Levofloxacin/Dextrose (Levaquin 750 Mg/150 Ml Ivpb (Premix)) 750 mg in 150 mls @ 100 mls/hr IV Q48H [facility]; Protocol Stop: 12/18/19 18:01 Last Admin: 11/18/19 18:05 Dose: 150 mls Documented by: Insulin Human Regular (Novolin -R) 0 unit SQ ACHS [facility]; Protocol Stop: 12/18/19 21:01 Last Admin: 11/19/19 11:30 Dose: Not Given Documented by: Isosorbide Mononitrate (Imdur) 60 mg PO DAILY [facility] Stop: 12/19/19 09:01 Last Admin: 11/19/19 08:42 Dose: 60 mg Documented by: Loratadine (Claritin) 10 mg PO DAILY [facility] Stop: 12/19/19 09:01 Last Admin: 11/19/19 08:15 Dose: 10 mg Documented by: Pantoprazole Sodium (Protonix Tab) 40 mg PO BID@0730,1630 [facility]; Protocol Stop: 12/19/19 07:31 Last Admin: 11/19/19 08:15 Dose: 40 mg Documented by: Pregabalin (Lyrica) 75 mg PO BEDTIME [facility] Stop: 12/19/19 21:01 Ranolazine (Ranexa) 500 mg PO BID [facility] Stop: 12/19/19 09:01 Last Admin: 11/19/19 08:15 Dose: 500 mg Documented by: Rosuvastatin Calcium (Crestor) 20 mg PO BEDTIME [facility] Stop: 12/19/19 21:01 Sodium Chloride (Normal Saline Flush) 10 ml IV BID [facility] Stop: 12/18/19 21:01 Last Admin: 11/19/19 08:42 Dose: 10 ml Documented by: ROS: CV: Denies chest pain RESP: Denies shortness of breath : Reports dark colored urine and little urine output with each void GI: Denies nausea and diarrhea Skin: reports left knee wound since August Objective: Temp Pulse Resp BP Pulse Ox 97.1 F 98 H 18 110/56 L 100 11/19/19 13:02 11/19/19 13:02 11/19/19 13:02 11/19/19 13:02 11/19/19 13:02 Labs: Na 122, K 3.2, BUN 39, Creat 1.72, albumin 1.6,WBC 18.7, Hgb 7.8, Hct 22.9 EXAM DESCRIPTION: CT - Stone Protocol - 11/18/2019 5:49 pm CLINICAL HISTORY: ckd uti COMPARISON: Chest Single View dated 11/18/2019 TECHNIQUE: Axial [address] imaging of the abdomen and pelvis was performed without IV contrast. No IV contrast was given because of allergy, abnormal renal function, patient refusal or physician request. No oral contrast administered. All CT scans are performed using dose optimization technique as appropriate and may include automated exposure control or mA/KV adjustment according to patient size. FINDINGS: Right lung base is clear. Parenchymal opacification abutting the posterior left hemidiaphragm in the gutter is believed to be atelectasis rather than infiltrate. Heart size is mildly enlarged. No pleural effusion or pericardial effusion. Bilateral gynecomastia changes are present. Sternotomy wires are in place. Multiple old rib fractures noted on the right. Lateral left fifth rib fractures present uncertain in age. There is a focal lucent component with this rib fracture. Patient has additional all lower left old rib fractures. Oval lucent focus present posterolateral right eighth rib and there is slight thinning of the posterior cortex posterior right ninth rib. Advanced degenerative change seen in the lower thoracic spine and lumbar spine. Facet degenerative changes severe. There are numerous lucent areas in the pelvis without a large destructive focus identifiable. The liver, spleen and pancreas show no suspicious findings on non-contrast imaging. Gallbladder and biliary tree are also without suspicious finding. No hydronephrosis or suspicious renal mass. No significant adrenal finding. Isodense renal masses and pyelonephritis cannot be excluded in the absence of IV contrast. The urinary bladder is without significant finding. No dilated bowel loops or bowel wall thickening. No free air, free fluid or inflammatory stranding. Small left inguinal fat filled hernia is present. No omental thickening. Along the lateral margin of the left common iliac artery there is a 4.4 x 2.5 centimeter soft tissue mass. A few adjacent smaller masses are present along the superior and inferior margin. No other aortoiliac masses. The masses appear to be distinct from the vasculature. Aneurysm is not suspected. IMPRESSION: A 4.4 x 2.5 centimeter soft tissue mass is present adjacent to the lateral margin left common iliac artery with a few additional smaller adjacent masses. No other similar mass or lymphadenopathy seen. Patient has advanced degenerative change in the spine along with multiple old rib fractures. In the pelvis and at least 2 ribs there are multiple small lucent areas present. The 4.4 centimeter mass is suspicious for malignancy. Metastatic lymphadenopathy or lymphoma would be possibilities. A primary etiology is not evident on this examination. Extramedullary hematopoiesis would be possible. The patient has multiple small bony lucent changes could be focal osteopenic change or lytic metastases. Multiple myeloma would be a consideration. Full assessment is limited is the absence of IV contrast. ROS: General: Awake, alert, oriented CV: S1,S2 RESP: Good breath sounds Abd: nontender, bowel sounds present Extremities: Mulitple bruises to bilateral upper and lower extremities Skin: Left knee trauma wound, wound bed with granulation tissue, large amount of thick purulent drainage Assessment and plan: Leukocytosis UTI, urine cultures pending Blood cultures show gram positive cocci, awaiting full report Left knee trauma wound, recommend silver alginate dressing daily and PRN Ancef and Levaquin day 2, continue until cultures come back Will continue to monitor Thank you for consult Patient discussed with Dr. Alarcon
--- NOTE | 2019-11-19 15:38 | P.PN ---
Subjective Date of Service: 11/19/19 Patient complaining of pain in the legs and toes. His blood pressure has improved. He has been afebrile. Physical Examination - Vital Signs Temperature: 97.1 F Blood Pressure: 110/56 Pulse: 98 Respirations: 18 Pulse Ox (%): 100 - Physical Exam General: Alert, In no apparent distress, Oriented x3 HEENT: Mucous membr. moist/pink Neck: Supple, JVD not distended Respiratory: Clear to auscultation bilaterally, Normal air movement Cardiovascular: No edema, Regular rate/rhythm, Normal S1 S2 Gastrointestinal: Normal bowel sounds, Soft and benign, No tenderness Musculoskeletal: No swelling, No erythema Integumentary: No rashes Neurological: Normal speech, Normal strength at 5/5 x4 extr - Studies Microbiology Data (last 24 hrs): 11/18/19 14:36 Blood - Blood Anaerobic Blood Culture - Final 11/18/19 14:36 Blood - Blood Gram Stain - Final Assessment And Plan Physician Review Additional Text: Sepsis secondary to urinary tract infection CAD s/p CABG x3, pacemaker/defibrillator CHF, unknown type CKD 3 DM 2 HTN Anemia of chronic disease. Recent GI bleed, due to the GI ulcers Prior DVT treated with Coumadin for 6 months HLD Sepsis secondary to urinary tract infection/MSSA bacteremia -blood pressure has improved. --reviewed cultures from 10 days ago, blood culture grew MSSA, urine culture: Enterobacter. -reviewed sensitivities with infectious disease, Dr. Cooper, who agreed with renally dosed and ancef and levaquin -blood culture: Gram positive cocci. -continue antibiotics -repeat blood culture. 40 lb weight loss in the past 4 months -patient attributes this to diuresis -he does have history of for CHF. CKD 3 -appears to be at baseline. -nephrology input appreciated CAD s/p CABG x3, pacemaker/defibrillator CHF, unknown type -continue home medications -Bumex on hold -Cardiology consult. -patient may need YARIEL. DM 2 -insulin sliding scale, Accu-Cheks a.c. HS HTN -confirm home meds, hold in setting of sepsis, low blood pressure Anemia of chronic disease -history of CKD, is receiving Procrit and IV iron as an outpatient -monitor CBC. Recent GI bleed, due to the GI ulcers -patient reports no active bleed, no blood in stool, no epigastric pain -continue home Protonix Prior DVT treated with Coumadin for 6 months -per chart review, patient not on any anticoagulation, likely provoked HLD -confirm and continue home med
[2019-11-19] MEDS ORDERED: MAGNESIUM SULFATE 1 gm IVPB 1 GM/100 ML BAG IV ONE (19:00)
[2019-11-19] MEDS: JUVEN PACKET PO SCH (21:00)
[2019-11-19] MEDS: ROSUVASTATIN 10 MG TAB PO SCH (21:29)
[2019-11-19] MEDS: PREGABALIN 75 MG CAP PO SCH (21:29)
[2019-11-20] MEDS: TRAMADOL HCL 50 MG TAB PO PRN ×2 (00:14→10:20)
[2019-11-20] MEDS: CEFAZOLIN/SWI 1gm 1 GM/10 ML SYR IVP SCH ×3 (00:16→16:58)
[2019-11-20 03:52] LABS: Absolute Lymphocytes (CBC) 1.6 K/uL (0.7-4.9); Basophils % 0.2 % (0-1.3); Hematocrit 24.8 % (39.6-49.0); Lymphocytes % 8.7 % (15.3-44.8); MPV 8.8 fL (7.6-11.3); RBC Red Blood Cell Count 2.71 M/uL (4.33-5.43)
[2019-11-20 04:00] LABS: Magnesium 1.6 mg/dL (1.8-2.4); Potassium 4.2 mmol/L (3.5-5.1)
[2019-11-20] MEDS: HYDROCODONE/APAP 10/325 TAB PO PRN ×3 (04:29→20:36)
[2019-11-20] MEDS: INSULIN -REGULAR HUMAN 50 UNIT/0.5 ML ML SQ SCH ×4 (07:30→20:34)
[2019-11-20] MEDS ORDERED: MAGNESIUM SULFATE 1 gm IVPB 1 GM/100 ML BAG IV ONE (08:00)
[2019-11-20] MEDS: ISOSORBIDE MONO SR 60 MG TAB PO SCH (08:10)
[2019-11-20] MEDS: ENOXAPARIN 40 MG/0.4 ML SQ SCH (08:10)
[2019-11-20] MEDS: LORATADINE 10 MG TAB PO SCH (08:11)
[2019-11-20] MEDS: PANTOPRAZOLE 40MG TABLET PO SCH ×2 (08:11→16:58)
[2019-11-20] MEDS: ASPIRIN EC 81 MG TAB PO SCH (08:11)
[2019-11-20] MEDS: FENOFIBRATE 160 MG TAB PO SCH (08:11)
[2019-11-20] MEDS: JUVEN PACKET PO SCH ×2 (08:11→20:33)
[2019-11-20] MEDS ORDERED: BUMETANIDE 1 MG TABLET PO SCH (09:00)
[2019-11-20 10:09] VITALS: O2SAT 94
[2019-11-20] MEDS: MAGNESIUM 50% 3 GM in NA CHLORIDE 0.9% 100 ML IV ONE (11:06)
--- NOTE | 2019-11-20 11:35 | PN ---
Date of Progress Note: 11/20/2019 Subjective: The patient was admitted with acute kidney injury on chronic kidney disease secondary to cardiorenal. The patient is feeling better. Physical Examination: Vital Signs: Blood pressure 120/58, pulse of 106. The patient had urine output of 1300, negative of 400. Chest: Faint thrills on the left base. Heart: S1, S2. Regular. Systolic murmur. Abdomen: Soft, nontender. Extremities: Plus edema. Neurologic: Alert. No focality. Laboratory Data: WBC 18.6, H and H 8.4/24.8, platelets 418. Sodium 135, potassium 4.2, bicarb 29, B UN 38, creatinine 1.7, GFR of 40, calcium 8.7, magnesium 1.6. Current Medications: The patient on include, 1.Aspirin. 2.Cefazolin. 3.Levaquin 750 mg every 48 hours. 4.Lovenox. 5.Isosorbide. 6.Fenofibrate. 7.Ranexa. 8.Crestor. 9.Lyrica. 10.Bumex 2 mg daily. 11.Jones. 12.Pantoprazole. Assessment And Plan: 1.Acute kidney injury on chronic kidney disease, back to baseline. Still on the wet side. I am goi ng to continue the patient on diuresis. I am going to switch the Bumex to IV. 2.Hypertension, controlled, optimal. Continue to utilize blood pressure for more diuresis. 3.Hypomagnesemia, secondary to diuresis. I am going to continue the patient on current treatment. Will optimize his diuresis. 4.Urinary tract infection. Continue current antibiotic. We will follow up culture. 5.Given the chronic kidney disease and the over volume and hypokalemia with ejection fraction of 30% , I will add aldactone to the patient's regimen and we will follow up the patient. BRIANNE/ROM Voice ID: [id number] Report ID: [id number]
--- NOTE | 2019-11-20 12:06 | EKG ---
Test Date: 2019-11-18 Test Time: 15:48:24 Fire Chief: MELBA MEASUREMENT RESULTS: Intervals: Rate: 97 WI: 150 QRSD: 126 QT: 394 QTc: 500 [place]: P: 58 WI: 150 QRS: 126 T: -21 INTERPRETIVE STATEMENTS: Sinus rhythm with occasional premature ventricular complexes and fusion complexes Nonspecific intraventricular block Cannot rule out Septal infarct, age undetermined Lateral infarct, age undetermined T wave abnormality, consider inferior ischemia Abnormal ECG No previous ECG available for comparison Electronically Signed On 11-20-19 12:01:48 CDT by Payam Shane
--- NOTE | 2019-11-20 12:25 | P.PN ---
Date of Service: 11/20/19 Subjective: Patient is a 73 year old male who present with weakness. Patient was seen in the ED approximately 10 days ago and was found to have a UTI and was treated with a 10 day course of Rocephin with little improvement. Review of cultures showed that he was growing MSSA and Enterobacter and Enterobacter was resistant to Ciprofloxacin. Patient reports taking 3-4 falls in the past several months due to weakness. Patient still with urinary symptoms and a left knee wound which I have been consulted for. Patient examined at bedside. Still with weakness. Objective: Temp Pulse Resp BP Pulse Ox 97.2 F 102 H 18 120/61 100 11/20/19 12:00 11/20/19 12:00 11/20/19 12:00 11/20/19 12:00 11/20/19 12:00 Labs: Na 135, K 4.2, BUN 38, Creat 1.71, albumin 1.6,WBC 18.6, Hgb 8.4, Hct 24.8 EXAM DESCRIPTION: CT - Stone Protocol - 11/18/2019 5:49 pm CLINICAL HISTORY: ckd uti COMPARISON: Chest Single View dated 11/18/2019 TECHNIQUE: Axial [address] imaging of the abdomen and pelvis was performed without IV contrast. No IV contrast was given because of allergy, abnormal renal function, patient refusal or physician request. No oral contrast administered. All CT scans are performed using dose optimization technique as appropriate and may include automated exposure control or mA/KV adjustment according to patient size. FINDINGS: Right lung base is clear. Parenchymal opacification abutting the posterior left hemidiaphragm in the gutter is believed to be atelectasis rather than infiltrate. Heart size is mildly enlarged. No pleural effusion or pericardial effusion. Bilateral gynecomastia changes are present. Sternotomy wires are in place. Multiple old rib fractures noted on the right. Lateral left fifth rib fractures present uncertain in age. There is a focal lucent component with this rib fracture. Patient has additional all lower left old rib fractures. Oval lucent focus present posterolateral right eighth rib and there is slight thinning of the posterior cortex posterior right ninth rib. Advanced degenerative change seen in the lower thoracic spine and lumbar spine. Facet degenerative changes severe. There are numerous lucent areas in the pelvis without a large destructive focus identifiable. The liver, spleen and pancreas show no suspicious findings on non-contrast imaging. Gallbladder and biliary tree are also without suspicious finding. No hydronephrosis or suspicious renal mass. No significant adrenal finding. Isodense renal masses and pyelonephritis cannot be excluded in the absence of IV contrast. The urinary bladder is without significant finding. No dilated bowel loops or bowel wall thickening. No free air, free fluid or inflammatory stranding. Small left inguinal fat filled hernia is present. No omental thickening. Along the lateral margin of the left common iliac artery there is a 4.4 x 2.5 centimeter soft tissue mass. A few adjacent smaller masses are present along the superior and inferior margin. No other aortoiliac masses. The masses appear to be distinct from the vasculature. Aneurysm is not suspected. IMPRESSION: A 4.4 x 2.5 centimeter soft tissue mass is present adjacent to the lateral margin left common iliac artery with a few additional smaller adjacent masses. No other similar mass or lymphadenopathy seen. Patient has advanced degenerative change in the spine along with multiple old rib fractures. In the pelvis and at least 2 ribs there are multiple small lucent areas present. The 4.4 centimeter mass is suspicious for malignancy. Metastatic lymphadenopathy or lymphoma would be possibilities. A primary etiology is not evident on this examination. Extramedullary hematopoiesis would be possible. The patient has multiple small bony lucent changes could be focal osteopenic change or lytic metastases. Multiple myeloma would be a consideration. Full assessment is limited is the absence of IV contrast. ROS: General: Awake, alert, oriented CV: S1,S2 RESP: Good breath sounds Abd: nontender, bowel sounds present Extremities: Mulitple bruises to bilateral upper and lower extremities Skin: Left knee trauma wound, wound bed with granulation tissue, large amount of thick purulent drainage Assessment and plan: Leukocytosis UTI, urine cultures show no growth Blood cultures show Staph coag positive, likely from leg wound Left knee trauma wound, recommend silver alginate dressing daily and PRN Ancef and Levaquin day 3, continue Patient will be transferred to [place] due to possibility of infection reaching his pacemaker Will continue to monitor Patient discussed with Dr. Alarcon
--- NOTE | 2019-11-20 15:46 | P.PN ---
Subjective Date of Service: 11/20/19 Patient states he feels better than yesterday. His blood pressure has improved. He has been afebrile. He is tachycardic. Physical Examination - Vital Signs Temperature: 97.2 F Blood Pressure: 120/61 Pulse: 102 Respirations: 18 Pulse Ox (%): 100 - Physical Exam General: Alert, In no apparent distress HEENT: Mucous membr. moist/pink Neck: Supple, JVD not distended Respiratory: Clear to auscultation bilaterally, Normal air movement Cardiovascular: No edema, Normal S1 S2, Other (Regular, tachycardic.) Capillary refill: <2 Seconds Gastrointestinal: Normal bowel sounds, Soft and benign, Non-distended, No tenderness Musculoskeletal: No swelling Neurological: Normal speech, Normal strength at 5/5 x4 extr - Studies Microbiology Data (last 24 hrs): 11/18/19 14:36 Blood - Blood Anaerobic Blood Culture - Final 11/18/19 14:36 Blood - Blood Gram Stain - Final Assessment And Plan Physician Review Additional Text: Sepsis secondary to urinary tract infection CAD s/p CABG x3, pacemaker/defibrillator CHF, unknown type CKD 3 DM 2 HTN Anemia of chronic disease. Recent GI bleed, due to the GI ulcers Prior DVT treated with Coumadin for 6 months HLD Sepsis secondary to urinary tract infection/MSSA bacteremia -blood pressure has improved. --reviewed cultures from 10 days ago, blood culture grew MSSA, urine culture: Enterobacter. -reviewed sensitivities with infectious disease, Dr. Cooper, who agreed with renally dosed and ancef and levaquin -blood culture: Coagulase positive Staph. Sensitivity is pending. -given the multiple blood cultures have grown Staph, patient will need YARIEL to evaluate for seeding of the pacemaker wires. -continue antibiotics. -Dr. Shane is helping to arrange for transfer to the [facility] for YARIEL. -serial blood cultures. 40 lb weight loss in the past 4 months -patient attributes this to diuresis -he does have history of for CHF. CKD 3 -appears to be at baseline. -nephrology input appreciated CAD s/p CABG x3, pacemaker/defibrillator Chronic systolic CHF -continue home medications -Bumex on hold -cardiology input appreciated. DM 2 -insulin sliding scale, Accu-Cheks a.c. HS HTN -hold in the setting of sepsis. Patient is currently normotensive. Anemia of chronic disease -history of CKD, is receiving Procrit and IV iron as an outpatient. -hemoglobin is stable around 8. -monitor CBC. Recent GI bleed, due to the GI ulcers -no active bleed. no epigastric pain -hemoglobin is stable around 8. -continue home Protonix Prior DVT treated with Coumadin for 6 months -per chart review, patient not on any anticoagulation, likely provoked HLD -continue home med.
[2019-11-20] MEDS: Levofloxacin 750mg IV 750 MG/150 ML BAG IV SCH (16:58)
[2019-11-20] MEDS ORDERED: Magnesium Sulfate 2gm IVPB 2 G/50 ML BAG IV ONE (18:00)
[2019-11-20] MEDS: PREGABALIN 75 MG CAP PO SCH (20:33)
[2019-11-20] MEDS: ROSUVASTATIN 10 MG TAB PO SCH (20:33)
[2019-11-20 23:13] VITALS: BP 130/63; TEMP 97.8
--- NOTE | 2019-11-21 05:41 | CON ---
Date of Consultation: 11/19/2019 The patient was admitted by Dr. Rivers on 11/18/2019 and the patient was seen on 11/19/2019. Reason For Consultation: Congestive heart failure and sepsis. History Of Present Illness: Mr. Hui is a 73-year-old male, has had a history of chronic renal dis ease stage 3. He came in with altered mental status, was found to be septic. He has a history of di abetes, dyslipidemia, peripheral vascular disease, CABG, has a pacemaker and AICD. Also has a histor y of stent. He apparently grew 4/4 blood culture for methicillin-sensitive Staphylococcus aureus and there is a concern that the patient may have infection in his pacemaker defibrillator device. Echoc ardiogram is pending. Past Medical History: As stated above. Allergies: NONE. Review of Systems: Negative. Social History: Negative. Family History: Noncontributory. Medications: Listed by Dr. Rivers. Physical Examination: General: Mr. Hui appears to be slightly confused, weak, but alert and oriented to name and place. He is not having any specific complaint except for fatigue. He was afebrile. He was in a paced [facility]. HEENT: Negative. Neck: Supple without any bruit, lymphadenopathy, JVD, or thyromegaly. Chest: Clear to auscultation and percussion. Cardiac: Revealed a regular rhythm and rate without any murmurs, gallops, or rubs. Abdomen: Benign. Extremities: Revealed no clubbing, cyanosis, or edema. Diagnostic Data: Listed earlier. Impression And Plan: 1.This is a patient with sepsis, 4/4 cultures positive for methicillin-sensitive Staphylococcus abner us. There is a concern that he may have a defibrillator pacemaker as a source of his infection. I t hink a transesophageal echocardiogram is recommended. He is on antibiotics. I would suggest transfe rring the patient to a tertiary care facility for more aggressive care including Infectious Disease c onsultation, transesophageal echocardiogram, and aggressive antibiotic therapy and possibly electroph ysiology consultation as well. 2.The case was discussed with Dr. Rivers. The patient will be going to Dr. Gustavo Thomas at [facility] for further care. 3.His other problems including diabetes, dyslipidemia, peptic ulcer disease, coronary artery disease , status post coronary artery bypass grafting and percutaneous coronary intervention appears to be st able at this point. 4.He has chronic renal disease stage 3, that is stable. 5.His altered mental status has been improved on antibiotics and hydration. We will see Mr. Hui in our office in the next month or so after all this resolved. MORENO/ROM Voice ID: [id number] Report ID: [id number]
[2019-11-21] MEDS ORDERED: SPIRONOLACTONE 25 MG TABLET PO SCH (09:00)
--- NOTE | 2019-11-21 16:23 | P.DS ---
Admission Date: 11/18/19 Discharge Date: 11/20/19 Disposition: TRANSFER TO [facility] Discharge Condition: FAIR Consultations: Cardiology - Problems (1) Septic shock Status: Acute (2) MSSA bacteremia Status: Acute (3) AICD (automatic cardioverter/defibrillator) present Status: Acute (4) Chronic systolic heart failure Status: Acute (5) History of GI bleed Status: Acute Brief History of Present Illness: 73-year-old gentleman with a past medical history CABG, chronic systolic heart failure, status post AICD, recently treated for a UTI was brought to the emergency department after a fall at home. Patient reported generalize weakness. He was noted to be hypotensive with severe leukocytosis in the ED. Previous blood culture grew MSSA. Previous urine culture grew Enterobacter. Patient diagnosed with septic shock, sepsis protocol initiated, patient was started on aggressive IV antibiotic therapy and admitted for further management. Hospital Course: Patient treated with IV Levaquin and cefazolin based on previous culture results. His blood pressure improved. Repeat blood culture also grew MSSA. There was a concern for bacterial seeding of his AICD given multiple blood cultures growing MSSA. The patient was seen and evaluated by cardiology-Dr. Shane. YARIEL was recommended. Patient transferred to [facility] the [facility] for further management. Vital Signs/Physical Exam: Temp Pulse Resp BP Pulse Ox 97.8 F 111 H 18 130/63 99 11/20/19 20:00 11/20/19 20:00 11/20/19 20:36 11/20/19 20:00 11/20/19 20:36 General: Alert, In no apparent distress Neck: Supple Respiratory: Clear to auscultation bilaterally, Normal air movement Cardiovascular: Regular rate/rhythm, Normal S1 S2 Gastrointestinal: Normal bowel sounds, Soft and benign, No tenderness Neurological: Normal speech, Normal strength at 5/5 x4 extr Laboratory Data at Discharge: WBC 18.6 K/uL (4.3-10.9) H 11/20/19 03:23 Hgb 8.4 g/dL (13.6-17.9) L 11/20/19 03:23 Hct 24.8 % (39.6-49.0) L 11/20/19 03:23 Plt Count 418 K/uL (152-406) H 11/20/19 03:23 PT 21.3 SECONDS (9.5-12.5) H 11/19/19 03:13 INR 1.83 11/19/19 03:13 APTT 34.3 SECONDS (24.3-36.9) 11/18/19 14:40 Sodium 135 mmol/L (136-145) L 11/20/19 03:23 Potassium 4.2 mmol/L (3.5-5.1) 11/20/19 03:23 BUN 38 mg/dL (7-18) H 11/20/19 03:23 Creatinine 1.71 mg/dL (0.55-1.3) H 11/20/19 03:23 Glucose 147 mg/dL (74-106) H 11/20/19 03:23 Phosphorus 2.1 mg/dL (2.5-4.9) L 11/19/19 03:13 Magnesium 1.6 mg/dL (1.8-2.4) L 11/20/19 03:23 Total Bilirubin 0.6 mg/dL (0.2-1.0) 11/19/19 03:13 AST 31 U/L (15-37) 11/19/19 03:13 ALT 30 U/L (12-78) 11/19/19 03:13 Alkaline Phosphatase 14 U/L (45-117) L 11/19/19 03:13 Amylase 19 U/L (25-115) L 11/18/19 14:40 Lipase 71 U/L (73-393) L 11/18/19 14:40 Home Medications: Rosuvastatin [Crestor*] 20 mg PO BEDTIME 03/07/17 Aspirin [Aspirin EC 81 MG] 81 mg PO DAILY 06/29/17 Bumetanide 1 tab PO BID 11/18/19 Fenofibrate [Tricor*] 1 tab PO DAILY 11/18/19 Isosorbide Mononitrate [Isosorbide Mononitrate ER] 2 tab PO DAILY 11/18/19 Loratadine [Claritin*] 1 tab PO DAILY 11/18/19 Pantoprazole [Protonix Tab*] 1 tab PO BID 11/18/19 Pregabalin 1 tab PO BEDTIME 11/18/19 Ranolazine [Ranolazine ER] 1 tab PO BID 11/18/19 Time spent managing pt's care (in minutes): 42
== END 2019-11-20 23:08 | disposition short-term general hospital (02) | DRG 314 ==
LOC: ER 14:09 → ERHOLD 17:01 → 4TH 17:33
PROVIDERS: ADMIT Hospitalist; ATTEND Internal Medicine
DX: T82.7XXA Infection and inflammatory reaction due to other cardiac and vascular devices, implants and grafts, initial encounter (principal); A41.9 Sepsis, unspecified organism; R65.21 Severe sepsis with septic shock; I50.23 Acute on chronic systolic (congestive) heart failure; Z16.29 Resistance to other single specified antibiotic; N39.0 Urinary tract infection, site not specified; I13.0 Hypertensive heart and chronic kidney disease with heart failure and stage 1 through stage 4 chronic kidney disease, or unspecified chronic kidney disease; E87.1 Hypo-osmolality and hyponatremia; B95.61 Methicillin susceptible Staphylococcus aureus infection as the cause of diseases classified elsewhere; B96.89 Other specified bacterial agents as the cause of diseases classified elsewhere; Z79.82 Long term (current) use of aspirin; Z79.899 Other long term (current) drug therapy; I25.10 Atherosclerotic heart disease of native coronary artery without angina pectoris; Z95.1 Presence of aortocoronary bypass graft; Z86.718 Personal history of other venous thrombosis and embolism; N18.3 Chronic kidney disease, stage 3 (moderate); Z95.5 Presence of coronary angioplasty implant and graft; E11.22 Type 2 diabetes mellitus with diabetic chronic kidney disease; Z95.810 Presence of automatic (implantable) cardiac defibrillator; E78.5 Hyperlipidemia, unspecified; D63.1 Anemia in chronic kidney disease; E66.9 Obesity, unspecified; Z68.33 Body mass index [BMI] 33.0-33.9, adult; E87.6 Hypokalemia; E83.42 Hypomagnesemia; W18.30XA Fall on same level, unspecified, initial encounter; Z20.828 Contact with and (suspected) exposure to other viral communicable diseases
CPT/HCPCS: 36415; 71045; 74176; 76377; 80048; 80053; 80076; 81015; 82150; 82550; 82553; 82947; 83605; 83690; 83735; 84100; 84132; 84145; 84484; 85025; 85610; 85730; 87040; 87077; 87086; 87088; 87186; 87205; 93005; 93306; 94760; 96361; 96365; 99285; J0690; J0696; J1650; J3475; J7030; U0002

== ENCOUNTER 2020-11-30 11:27 | Inpatient (IN) | payer OTHER, BC ==
[2020-11-30] MEDS ORDERED: MAGNESIUM SULFATE 1 gm IVPB 1 GM/100 ML BAG IV ONE (12:00)
[2020-11-30 12:12] LABS: Absolute Lymphocytes (CBC) 1.2 K/uL (0.7-4.9); Hematocrit 25.3 % (39.6-49.0); Lymphocytes % 25.2 % (15.3-44.8); RBC Red Blood Cell Count 2.66 M/uL (4.33-5.43)
--- NOTE | 2020-11-30 12:22 | RAD REPORT ---
EXAM DESCRIPTION: Louisa Single View11/30/2020 12:13 pm CLINICAL HISTORY: Arrhythmia COMPARISON: 2019 FINDINGS: Mild bilateral pulmonary opacities. The heart is moderately enlarged. Pacemaker leads are in place. Postsurgical changes involve the chest IMPRESSION: Mild bilateral pulmonary opacities may represent mild pulmonary edema
[2020-11-30 12:28] LABS: Protime INR 1.23
[2020-11-30 12:39] LABS: BUN Blood Urea Nitrogen 74 mg/dL (7-18); Bicarbonate 32 mmol/L (21-32); Glucose Level 137 mg/dL (74-106); Magnesium 2.2 mg/dL (1.8-2.4); NT PRO-BNP 9568 pg/mL (<125); Potassium 3.6 mmol/L (3.5-5.1); Sodium Level 139 mmol/L (136-145); Troponin (Emerg Dept Use Only) < 0.02 ng/mL (0.0-0.045)
[2020-11-30] MEDS ORDERED: NA CHLORIDE 0.9% 500 ML ONE (13:19)
--- NOTE | 2020-11-30 14:12 | EDPHYS ---
Physician Documentation [facility] Name: Bc Hui Age: 74 yrs Sex: Male : 1945 Arrival Date: 11/30/2020 Time: 11:30 Bed 3 Private MD: ED Physician Oziel Ram HPI: 11/30 11:31 This 74 yrs old Male presents to ER via Unassigned with complaints of rn Defibrillator shocks x4. 11:31 Patient reports 4 times since breakfast has noticed for defibrillator shocks rn administered by his AICD. Reports this device has been in since 2019, but has had a device for almost a decade. Reports feels lightheaded and dizzy then gets a shock. No syncope. Has not felt sick. Reports mild swelling of lower extremities but has been much worse in the past. States compliant with medication.. Onset: The symptoms/episode began/occurred this morning. Severity of symptoms: At their worst the symptoms were moderate in the emergency department the symptoms have improved. The patient has not experienced similar symptoms in the past. The patient has not recently seen a physician. Historical: - Allergies: 11:39 No Known Allergies; ap3 - Home Meds: 11:39 aspirin 81 mg Oral chew [Active]; Integra 125-40-3 mg oral cap [Active]; omeprazole 40 ap3 mg Oral cpDR [Active]; mexiletine 200 mg Oral cap [Active]; Lovaza oral [Active]; pregabalin 75 mg oral cap [Active]; fenofibrate 145 oral [Active]; Klor-Con M20 20 mEq oral TbTQ [Active]; isosorbide mononitrate 30 mg oral Tb24 [Active]; Magnesium Oxide Oral [Active]; cholecalciferol (vitamin D3) oral [Active]; ranolazine oral [Active]; rosuvastatin 10 mg oral cpSP [Active]; flaxseed oral [Active]; hydrocodone-acetaminophen 10-325 mg Oral tab [Active]; Nitroglycerin Oral [Active]; - PMHx: 11:39 Diabetes - NIDDM; High Cholesterol; Stomach ulcer; ap3 - Immunization history:: Client reports receiving the 2nd dose of the Covid vaccine, as well as booster. - Family history:: not pertinent. - Social history:: Smoking status: Patient denies any tobacco usage or history of. - Hospitalizations: : No recent hospitalization is reported. ROS: 11:31 Constitutional: Negative for fever, chills, and weight loss, Eyes: Negative for injury, rn pain, redness, and discharge, Neck: Negative for injury, pain, and swelling, Cardiovascular: Positive for pain only when being shocked Respiratory: Negative for cough, wheezing, and pleuritic chest pain, Abdomen/GI: Negative for abdominal pain, nausea, vomiting, diarrhea, and constipation, Back: Negative for injury and pain, MS/Extremity: Negative for injury and deformity, Skin: Negative for injury, rash, and discoloration, Neuro: Negative for headache, weakness, numbness, tingling, and seizure. Exam: 11:31 Constitutional: This is a well developed, well nourished patient who is awake, alert, rn and in no acute distress. Head/Face: Normocephalic, atraumatic. Eyes: Periorbital areas with no swelling, redness, or edema. Neck: Trachea midline, no masses palpated, and no cervical lymphadenopathy. Cardiovascular: Regular rate and rhythm. No pulse deficits. Respiratory: No increased work of breathing, no retractions or nasal flaring. Abdomen/GI: Soft, non-tender Skin: Warm, dry MS/ Extremity: Pulses equal, no cyanosis. Neurovascular intact. Full, normal range of motion. Equal circumference. Neuro: Awake and alert, GCS 15 11:31 ECG was reviewed by the Attending Physician. Vital Signs: 11:32 Pulse 75; Resp 19; Temp 98.9(T); Pulse Ox 100% on R/A; Weight 104.33 kg; Height 5 ft. 9 ap3 in. (175.26 cm); 11:32 BP 92 / 45; ap3 12:23 BP 82 / 50 RA (auto/reg); Pulse 63 MON; Resp 18; Pulse Ox 100% on R/A; ap3 13:04 BP 107 / 58; Pulse 65; Pulse Ox 100% on R/A; ap3 14:02 BP 112 / 54; Pulse 65; Pulse Ox 97% on R/A; ap3 15:06 BP 87 / 55; Pulse 61; Pulse Ox 99% on R/A; ap3 15:55 BP 125 / 72; Pulse 68; Pulse Ox 99% on R/A; ap3 11:32 Body Mass Index 33.96 (104.33 kg, 175.26 cm) ap3 MDM: 11:30 Patient medically screened. rn 14:08 Differential Diagnosis VT/VF, dehydration, acute on chronic kidney failure, volume rn overload. Data reviewed: vital signs, nurses notes, lab test result(s), EKG, radiologic studies, plain films, and as a result, I will admit patient. Data interpreted: monitor worker: rate is 65 beats/min, rhythm is regular, paced rhythm with unifocal PVCs, Interpretation: paced, Pulse oximetry: on room air is 97 %. Interpretation: normal. Test interpretation: by ED physician or midlevel provider: ECG, plain radiologic studies, X-ray chest shows mild pulmonary edema. Counseling: I had a detailed discussion with the patient and/or guardian regarding: the historical points, exam findings, and any diagnostic results supporting the discharge/admit diagnosis, lab results, radiology results, the need for further work-up and treatment in the hospital. Response to treatment: the patient's symptoms have mildly improved after treatment, and as a result, I will admit patient. Admission orders: after a detailed discussion of the patient's condition and case, the admit orders are written by me. ED course: [employer] report shows 5 shocks, for failed with antitachycardia pacing. Several episodes of ventricular tachycardia. Patient volume overloaded with acute kidney injury. Will admit for optimization. Pacemaker seems to be sensing and functioning correctly.. 11/30 11:31 Order name: Basic Metabolic Panel; Complete Time: 12:45 rn 11/30 11:31 Order name: CBC with Diff; Complete Time: 12:25 rn 11/30 11:31 Order name: Magnesium; Complete Time: 12:45 rn 11/30 11:31 Order name: NT PRO-BNP; Complete Time: 12:45 rn 11/30 11:31 Order name: PT-INR; Complete Time: 12:45 rn 11/30 11:31 Order name: Troponin (emerg Dept Use Only); Complete Time: 12:45 rn 11/30 11:31 Order name: XRAY Chest (1 view); Complete Time: 12:25 rn 11/30 13:28 Order name: COVID-19 : Document "Date of Symptom Onset" if Symptomatic. rn 11/30 16:16 Order name: SARS-COV-2 RT PCR EDOK 11/30 16:32 Order name: Urine Dipstick-Ancillary EDOK 11/30 11:31 Order name: EKG; Complete Time: 11:31 rn 11/30 11:31 Order name: Cardiac monitoring; Complete Time: 11:44 rn 11/30 11:31 Order name: EKG - Nurse/Tech; Complete Time: 11:44 rn 11/30 11:31 Order name: IV Saline Lock; Complete Time: 12: rn 11/30 11:31 Order name: Labs collected and sent; Complete Time: 12: rn 11/30 11:31 Order name: O2 Per Protocol; Complete Time: 11:44 rn 11/30 11:31 Order name: O2 Sat Monitoring; Complete Time: :44 rn EC: Rate is 65 beats/min. Rhythm is regular. Right axis deviation noted. QRS is positive in rn lead aVF and negative in lead I. QRS interval is prolonged at 160 msec. No Q waves. T waves are Normal. No ST changes noted. Clinical impression: paced rhythm. Interpreted by me. Reviewed by me. Administered Medications: 12:13 Drug: Magnesium Sulfate 1 grams Route: IVPB; Infused Over: 1 hrs; Site: left wrist; ap3 15:07 Follow up: IV Status: Completed infusion ap3 12:13 Drug: NS 0.9% 500 ml Route: IV; Rate: bolus; Site: left wrist; ap3 12:56 Follow up: Response: No adverse reaction; IV Status: Completed infusion; IV Intake: ll1 500ml 15:07 Follow up: IV Status: Completed infusion; IV Intake: 500ml ap3 12:56 Drug: NS 0.9% 500 ml Route: IV; Rate: bolus; Site: right antecubital; ll1 15:07 Follow up: IV Status: Completed infusion; IV Intake: 500ml ap3 Disposition Summary: 11/30/20 14:11 Hospitalization Ordered Hospitalization Status: Inpatient Admission rn Provider: Lamont Ram rn Location: Telemetry/MedSur (Inpatient) rn Condition: Stable rn Problem: new rn Symptoms: have improved rn Bed/Room Type: Standard rn Room Assignment: 229(11/30/20 16:47) bd Diagnosis - Ventricular tachycardia rn - Acute pulmonary edema rn - Acute kidney failure, unspecified rn - Encounter for adjustment and management of automatic implantable western felt hat blocker defibrillator Forms: - Medication Reconciliation Form rn - SBAR form rn Signatures: Dispatcher [employer] EDMS Silvina Manning Roman, MD MD rn Prokisch, Amanda, RN RN ap3 Abi Lei RN RN ll1 Corrections: (The following items were deleted from the chart) 15:22 13:29 CORONAVIRUS ordered. EDMS EDMS 16:47 14:11 kirk montoya
--- NOTE | 2020-11-30 14:12 | ER ---
Nurse's Notes [facility] Name: Bc Hui Age: 74 yrs Sex: Male : 1945 Arrival Date: 11/30/2020 Time: 11:30 Bed 3 Private MD: Diagnosis: Ventricular tachycardia;Acute pulmonary edema;Acute kidney failure, unspecified;Encounter for adjustment and management of automatic implantable cardiac defibrillator Presentation: 11/30 11:32 Chief complaint: EMS states: they were called for patients defibrillator going off. ap3 Patient states his defibrillator went of 4 or 5 times this morning while he was eating breakfast. He states that right before it goes off, he starts to feel like he is going to pass out. Coronavirus screen: At this time, the client does not indicate any symptoms associated with coronavirus-19. Ebola Screen: No symptoms or risks identified at this time. Initial Sepsis Screen:. Initial Sepsis Screen: Does the patient meet any 2 criteria? Mean Arterial Pressure (MAP) < 65. No. Patient's initial sepsis screen is negative. Does the patient have a suspected source of infection? No. Patient's initial sepsis screen is negative. Risk Assessment: Do you want to hurt yourself or someone else? Patient reports no desire to harm self or others. Onset of symptoms was November 30, 2020. 11:32 Method Of Arrival: EMS: [facility] ap3 11:32 Acuity: SAJAN 2 ap3 Triage Assessment: 11:37 General: Appears comfortable, Behavior is calm, cooperative. Pain: Denies pain. Neuro: ap3 Level of Consciousness is awake, alert, obeys commands, Oriented to person, place, time, situation, Speech is normal. Cardiovascular: Reports That his defibrillator has gone off multiple times since breakfast. Respiratory: Airway is patent Respiratory effort is even, unlabored, Respiratory pattern is regular, symmetrical, Breath sounds are clear Denies cough, shortness of breath. GI: No signs and/or symptoms were reported involving the gastrointestinal system. : No signs and/or symptoms were reported regarding the genitourinary system. Derm: No signs and/or symptoms reported regarding the dermatologic system. Historical: - Allergies: 11:39 No Known Allergies; ap3 - Home Meds: 11:39 aspirin 81 mg Oral chew [Active]; Integra 125-40-3 mg oral cap [Active]; omeprazole 40 ap3 mg Oral cpDR [Active]; mexiletine 200 mg Oral cap [Active]; Lovaza oral [Active]; pregabalin 75 mg oral cap [Active]; fenofibrate 145 oral [Active]; Klor-Con M20 20 mEq oral TbTQ [Active]; isosorbide mononitrate 30 mg oral Tb24 [Active]; Magnesium Oxide Oral [Active]; cholecalciferol (vitamin D3) oral [Active]; ranolazine oral [Active]; rosuvastatin 10 mg oral cpSP [Active]; flaxseed oral [Active]; hydrocodone-acetaminophen 10-325 mg Oral tab [Active]; Nitroglycerin Oral [Active]; - PMHx: 11:39 Diabetes - NIDDM; High Cholesterol; Stomach ulcer; ap3 - Immunization history:: Client reports receiving the 2nd dose of the Covid vaccine, as well as booster. - Family history:: not pertinent. - Social history:: Smoking status: Patient denies any tobacco usage or history of. - Hospitalizations: : No recent hospitalization is reported. Screenin:38 Abuse screen: Denies threats or abuse. Nutritional screening: No deficits noted. ap3 Tuberculosis screening: No symptoms or risk factors identified. Fall Risk No fall in past 12 months (0 pts). Secondary diagnosis (15 points) IV access (20 points). Ambulatory Aid- None/Bed Rest/Nurse Assist (0 pts). Gait- Weak (10 pts.). Mental Status- Oriented to own ability (0 pts). Total Lim Fall Scale indicates High Risk Score (45 or more points). Fall prevention measures have been instituted. Side Rails Up X 2 Placed Close to Nursing Station Frequent Obs/Assessments Occuring As available patient and family educated on Fall Prevention Program and Strategies. Assessment: 14:02 Reassessment: Patient and/or family updated on plan of care and expected duration. Pain ap3 level reassessed. Patient is alert, oriented x 3, equal unlabored respirations, skin warm/dry/pink. patient provided with water. 15:55 Reassessment: Patient and/or family updated on plan of care and expected duration. Pain ap3 level reassessed. Patient is alert, oriented x 3, equal unlabored respirations, skin warm/dry/pink. Vital Signs: 11:32 Pulse 75; Resp 19; Temp 98.9(T); Pulse Ox 100% on R/A; Weight 104.33 kg; Height 5 ft. 9 ap3 in. (175.26 cm); 11:32 BP 92 / 45; ap3 12:23 BP 82 / 50 RA (auto/reg); Pulse 63 MON; Resp 18; Pulse Ox 100% on R/A; ap3 13:04 BP 107 / 58; Pulse 65; Pulse Ox 100% on R/A; ap3 14:02 BP 112 / 54; Pulse 65; Pulse Ox 97% on R/A; ap3 15:06 BP 87 / 55; Pulse 61; Pulse Ox 99% on R/A; ap3 15:55 BP 125 / 72; Pulse 68; Pulse Ox 99% on R/A; ap3 11:32 Body Mass Index 33.96 (104.33 kg, 175.26 cm) ap3 ED Course: 11:30 Patient arrived in ED. rn 11:30 Oziel Ram MD is Attending Physician. rn 11:32 Poornima Castano RN is Primary Nurse. ap3 11:37 Triage completed. ap3 11:39 Arm band placed on right wrist. EKG done per protocol. Performed by ED Staff. Shown to ap3 ED physician. 11:43 Patient has correct armband on for positive identification. Bed in low position. Call ap3 light in reach. Side rails up X2. granite sandblaster apprentice on. Pulse ox on. NIBP on. Door closed. Noise minimized. 11:43 EKG done, by ED staff, by firestopper technician. reviewed by Oziel Ram MD. ap3 12:07 CBC with Diff Sent. mh5 12:07 Magnesium Sent. mh5 12:07 NT PRO-BNP Sent. mh5 12:07 PT-INR Sent. mh5 12:07 Troponin (emerg Dept Use Only) Sent. mh5 12:08 Lab(s) recollected, by ED staff, sent to lab. mh5 12:13 XRAY Chest (1 view) In Process Unspecified. EDMS 13:50 ED physician to see patient. ap3 14:02 Admitting physician to see patient. ap3 14:11 Lamont Ram MD is Hospitalizing Provider. rn 16:33 Urine collected: clean catch specimen, clear. mh5 16:53 Report given to receiving nurse on Med/Surg 2nd floor. ap3 17:07 No provider procedures requiring assistance completed. Patient admitted, IV remains in ap3 place. Administered Medications: 12:13 Drug: Magnesium Sulfate 1 grams Route: IVPB; Infused Over: 1 hrs; Site: left wrist; ap3 15:07 Follow up: IV Status: Completed infusion ap3 12:13 Drug: NS 0.9% 500 ml Route: IV; Rate: bolus; Site: left wrist; ap3 12:56 Follow up: Response: No adverse reaction; IV Status: Completed infusion; IV Intake: ll1 500ml 15:07 Follow up: IV Status: Completed infusion; IV Intake: 500ml ap3 12:56 Drug: NS 0.9% 500 ml Route: IV; Rate: bolus; Site: right antecubital; ll1 15:07 Follow up: IV Status: Completed infusion; IV Intake: 500ml ap3 Intake: 12:56 IV: 500ml; Total: 500ml. ll1 15:07 IV: 500ml; Total: 1000ml. ap3 15:07 IV: 500ml; Total: 1500ml. ap3 Outcome: 14:11 Decision to Hospitalize by Provider. rn 17:07 Admitted to Med/surg accompanied by tech, via wheelchair, room 229, with chart. ap3 17:07 Condition: good 17:07 Instructed on the need for admit, Demonstrated understanding of admission 17:07 Patient left the ED. ap3 Signatures: Dispatcher [employer] EDMS Oziel Ram MD MD rn Martinez, Maria [facility] Poornima Castano RN RN ap3 Abi Lei RN RN ll1 Corrections: (The following items were deleted from the chart) 14:02 14:02 ED physician to see patient. ap3 ap3
[2020-11-30 16:32] LABS: Urine Blood Negative (Negative); Urine Glucose Negative (Negative); Urine Protein Negative (Negative); Urine pH 6.5 (5.0-7.0)
[2020-11-30] MEDS ORDERED: LABETALOL 20 MG/4ML SYRINGE IV PRN (17:48)
[2020-11-30] MEDS ORDERED: ONDANSETRON 4 MG/2 ML VIAL IV PRN (18:00)
[2020-11-30] MEDS ORDERED: ACETAMINOPHEN 500 MG TAB PO PRN (18:00)
--- NOTE | 2020-11-30 18:13 | P.HP ---
Certification for Inpatient Patient admitted to: Inpatient With expected LOS: >2 Midnights Patient will require the following post-hospital care: None Practitioner: I am a practitioner with admitting privileges, knowledge of patient current condition, hospital course, and medical plan of care. Services: Services provided to patient in accordance with Admission requirements found in Title 42 Section 412.3 of the Code of Federal Regulations <DenniscarmenImerlatasha Lieberman - Last Filed: 11/30/20 20:49> Patient History Date of Service: 11/30/20 Reason for admission: Defibrillator shocks History of Present Illness: Patient is a 74-year-old male with a past medical history significant for CHF, GERD, DM 2, with stents, CKD 3, HLD who presents with complaint of defibrillator shocks. Patient reports that he had a similar episode yesterday after supper. Patient again experienced similar symptoms this morning and patient reported that he received 4 defibrillator shocks. Patient reported that before the shocks he normally experiences lightheadedness and dizziness. Patient denies any other signs or symptoms. Symptoms are aggravated or relieved by nothing. Patient decided to present to the hospital for medical evaluation. - Past Medical/Surgical History Diabetic: Yes -: Diabetes mellitus type 2 -: HTN -: CAD s/p CABG -: CHF s/p pacemaker/debrillator -: Anemia of chronic disease -: History of DVT -: CKD 3 -: Recent GI bleed due to the gastric ulcers -: CABGx3 -: Coronary stent -: Back surgery -: Right shoulder surgery -: right ankle surgery -: titanium rods in both femur - Family History Father -: Heart disease - Social History Smoking Status: Never smoker Alcohol use: No CD- Drugs: No Caffeine use: Yes Place of Residence: Home <Anna Ortiz - Last Filed: 11/30/20 20:49> Date of Service: 11/30/20 <Tavia Padgett - Last Filed: 12/07/20 05:33> Allergies No Known Allergies Allergy (Verified 03/09/18 11:32) Home Medications: Rosuvastatin [Crestor*] 20 mg PO BEDTIME 03/07/17 Aspirin [Aspirin EC 81 MG] 81 mg PO DAILY 06/29/17 Bumetanide 1 tab PO BID 11/18/19 Isosorbide Mononitrate [Isosorbide Mononitrate ER] 1 tab PO DAILY 11/18/19 Pantoprazole [Protonix Tab*] 1 tab PO BID 11/18/19 Pregabalin 1 tab PO BEDTIME 11/18/19 Cholecalciferol (Vitamin D3) [Vitamin D3] 2,000 unit PO DAILY 01/26/20 Fenofibrate,Micronized [Fenofibrate] 134 mg PO DAILY 01/26/20 Magnesium Oxide [Magnesium] 400 mg PO DAILY 01/26/20 Mexiletine HCl 200 mg PO BID 01/26/20 Pioglitazone HCl 45 mg PO DAILY 01/26/20 Potassium Chloride 10 meq PO BID 01/26/20 Amiodarone HCl [Cordarone*] 400 mg PO BID #68 tab 12/01/20 Review of Systems General: As per HPI Eyes: Unremarkable ENT: Unremarkable Respiratory: Unremarkable Cardiovascular: Edema, Light Headedness Gastrointestinal: Unremarkable Genitourinary: Unremarkable Musculoskeletal: Unremarkable Integumentary: Unremarkable Neurological: Other (Dizziness) Lymphatics: Unremarkable <Anna Ortiz - Last Filed: 11/30/20 20:49> Physical Examination - Vital Signs Temperature: 98.9 F Blood Pressure: 125/72 Pulse: 68 Respirations: 18 - Physical Exam General: Alert, Oriented x3 HEENT: Atraumatic, PERRLA, Mucous membr. moist/pink, EOMI, Sclerae nonicteric Neck: Supple, 2+ carotid pulse no bruit, No LAD, Without JVD or thyroid abnormality Respiratory: Diminished Cardiovascular: Regular rate/rhythm, Normal S1 S2 Capillary refill: <2 Seconds Gastrointestinal: Normal bowel sounds, No tenderness Musculoskeletal: No tenderness, Swelling Integumentary: No rashes Neurological: Normal gait, Normal speech, Normal tone, Normal affect Lymphatics: No axilla or inguinal lymphadenopathy External genitalia: Deferred Rectal: Deferred - Studies Laboratory Data (last 24 hrs) 11/30/20 12:02: PT 14.2 H, INR 1.23 11/30/20 12:02: WBC 4.60, Hgb 8.5 L, Hct 25.3 L, Plt Count 203 11/30/20 12:02: Sodium 139, Potassium 3.6, BUN 74 H, Creatinine 2.67 H, Glucose 137 H, Magnesium 2.2 D <Anna Ortiz - Last Filed: 11/30/20 20:49> Assessment and Plan - Plan --Suspected ventricular tachycardia. Defibrillator is a [employer] model. Cardiology consulted. Telemetry to monitor for any significant arrhythmia. Will await further recommendation from feeder operator. --Acute systolic or diastolic CHF exacerbation. Status post AICD placement. Echocardiogram pending. Daily weights. Strict I/O. Mild pulmonary edema noted on chest x-ray. Blood pressure is soft. We hold off on Lasix per feeder operator recommendations. Further management per feeder operator. --History of CAD with stents and CABG. Continue aspirin, Plavix and statin. --RINKU on CKD 3. Nephrology consulted. Further management per jet operator. --GERD. Continue Protonix. --DM2. BS monitoring with sliding scale insulin. --HLD. Continue statin. --Obesity. Likely secondary to excess calories intake. Patient counseled on diet and exercise therapy --DVT prophylaxis with heparin subQ I have had discussion about advanced directives with the patient during this hospital admission. Addressed code status and goals of care. Spent more than 30 minutes. Case discussed withpatient and nurse. The following document was completed using voice recognition software. This can produce patch driller errors that can at times significantly distort words and phrases. Please interpret any aspect of the note that is nonsensical in light of this fact. Discharge Plan: Home Plan to discharge in: 48 Hours - Advance Directives Does patient have a Living Will: No Does patient have a Durable POA for Healthcare: No - Code Status/Comfort Care Code Status Assessed: Yes Code Status: Full Code Physician Review: Patient Assessed, Agree with Above Assessment and Plan Critical Care: No <Anna Ortiz E - Last Filed: 11/30/20 20:49> Date of Service: 11/30/20 Subjective: Agree with the HPI as above Physical Examination: Vitals: Afebrile vital signs are stable Physical exam: Cardiovascular: Within normal limits. Lungs: Within normal limits Abdomen: Within normal limits Neuro: Awake, alert, oriented to person place and time Assessment: 1. V-tach with cardioversion by defibrillator Plan: 1. start on amiodarone 2. Cardiology consultation 3. Plan as mentioned above <Tavia Padgett - Last Filed: 12/07/20 05:33>
[2020-11-30 19:00] VITALS: BMI 34.0
[2020-11-30 19:48] LABS: Thyroid Stimulating Hormone 1.86 uIU/mL (0.360-3.740); Troponin I 0.08 ng/mL (0.0-0.045)
[2020-11-30] MEDS: IPRATROPIUM BROM 0.5MG/2.5ML NEB SCH (20:10)
[2020-11-30] MEDS: ALBUTEROL 2.5 MG/3 ML NEB SOL NEB SCH (20:10)
[2020-11-30] MEDS ORDERED: D50W 25 GM/50 ML SYRINGE IV PRN (20:27)
[2020-11-30] MEDS ORDERED: GLUCAGON 1 MG/VIAL IM PRN (20:27)
[2020-11-30] MEDS: PANTOPRAZOLE 40MG TABLET PO SCH (20:38)
[2020-11-30] MEDS: DOCOSAHEXANOIC AC/EPA 1000 MG PO SCH (20:45)
[2020-11-30] MEDS: MEXILETINE HCL 200 MG PO SCH (20:46)
[2020-11-30] MEDS ORDERED: DOCOSAHEXANOIC AC/EPA 1000 MG PO SCH (21:00)
[2020-11-30] MEDS ORDERED: HOME MED 1 EA UNK (Potassium Chloride [Potassium Chloride] 20 MEQ Tab.Er.Prt) PO SCH (21:00)
[2020-11-30] MEDS: INSULIN -REGULAR HUMAN 50 UNIT/0.5 ML ML SQ SCH (21:00)
[2020-11-30] MEDS ORDERED: ROSUVASTATIN 10 MG TAB PO SCH (21:00)
[2020-11-30] MEDS ORDERED: HOME MED 1 EA UNK (Omega-3 Fatty Acids [Omega-3] 1,000 MG Capsule) PO SCH (21:00)
[2020-11-30] MEDS ORDERED: POTASSIUM CL SA 10 MEQ TAB PO SCH ×2 (21:00)
[2020-11-30] MEDS: POTASSIUM CL SA 10 MEQ TAB PO SCH (21:00)
[2020-11-30] MEDS ORDERED: PREGABALIN 75 MG CAP PO SCH (21:00)
[2020-12-01] MEDS: HEPARIN 5000 UNIT/ML 1 ML VIAL SQ SCH ×2 (00:46→09:47)
[2020-12-01] MEDS: IPRATROPIUM BROM 0.5MG/2.5ML NEB SCH ×2 (01:30→08:04)
[2020-12-01] MEDS: ALBUTEROL 2.5 MG/3 ML NEB SOL NEB SCH ×2 (01:30→08:04)
[2020-12-01 06:27] LABS: Absolute Lymphocytes (CBC) 1.7 K/uL (0.7-4.9); Hematocrit 24.2 % (39.6-49.0); Lymphocytes % 38.8 % (15.3-44.8); MPV 9.7 fL (7.6-11.3); RBC Red Blood Cell Count 2.54 M/uL (4.33-5.43)
[2020-12-01 06:39] LABS: Potassium 4.1 mmol/L (3.5-5.1)
[2020-12-01] MEDS: INSULIN -REGULAR HUMAN 50 UNIT/0.5 ML ML SQ SCH ×2 (07:30→11:30)
[2020-12-01] MEDS ORDERED: PIOGLITAZONE 15 MG TAB PO SCH ×2 (08:00→09:00)
[2020-12-01] MEDS ORDERED: INFLUENZA VACCINE (for 6+ mo) 0.5 ML DOSE IMVAC ONE (08:00)
[2020-12-01 08:53] VITALS: O2SAT 96
[2020-12-01] MEDS ORDERED: ISOSORBIDE MONO SR 30 MG TAB PO SCH (09:00)
[2020-12-01] MEDS ORDERED: VITAMIN D 1000 UNIT TAB PO SCH ×2 (09:00)
[2020-12-01] MEDS ORDERED: HOME MED 1 EA UNK (Cholecalciferol (Vitamin D3) [Vitamin D3] 2000 UNIT Capsule) PO SCH (09:00)
[2020-12-01] MEDS ORDERED: FUROSEMIDE 40 MG/4 ML VIAL IV SCH (09:00)
[2020-12-01] MEDS: MEXILETINE HCL 200 MG PO SCH (09:00)
[2020-12-01] MEDS ORDERED: MAGNESIUM OXIDE 400 MG TAB PO SCH ×2 (09:00)
[2020-12-01] MEDS ORDERED: HOME MED 1 EA UNK (Fenofibrate,Micronized [Fenofibrate] 134 MG Capsule) PO SCH (09:00)
[2020-12-01] MEDS ORDERED: HOME MED 1 EA UNK (Magnesium Oxide [Magnesium] 400 MG Capsule) PO SCH (09:00)
[2020-12-01] MEDS ORDERED: PIOGLITAZONE HCL 45 MG PO SCH (09:00)
[2020-12-01] MEDS ORDERED: CLOPIDOGREL 75 MG TABLET PO SCH (09:00)
[2020-12-01] MEDS ORDERED: ASPIRIN EC 81 MG TAB PO SCH (09:00)
[2020-12-01] MEDS ORDERED: ASPIRIN 81 MG CHEWABLE TABLET PO SCH (09:00)
[2020-12-01] MEDS: DOCOSAHEXANOIC AC/EPA 1000 MG PO SCH (09:45)
[2020-12-01] MEDS: PANTOPRAZOLE 40MG TABLET PO SCH (09:46)
[2020-12-01] MEDS: POTASSIUM CL SA 10 MEQ TAB PO SCH (09:46)
[2020-12-01 12:53] VITALS: BP 116/54; TEMP 97.4
--- NOTE | 2020-12-01 15:03 | CON ---
Date of Consultation: 12/01/2020 Reason For Consultation: Elevated BUN and creatinine, fluid management. History Of Present Illness: This is a pleasant 74-year-old gentleman with significant past medical h istory of hypertension, hyperlipidemia, diabetes since 1979, no retinopathy, no neuropathy, had nephr opathy, CAD status post CABG, status post PTCA in 2018, chronic kidney disease with baseline creatini ne of 2.7 as of September 2020, with GFR of 23, DVT, peptic ulcer disease, the patient apparently came t o the hospital that he has recurrent shock by his defibrillator. Upon arrival to the hospital, the p atient found to have elevation in BUN and creatinine. For that reason, we have been consulted. Crea tinine 2.2 with GFR of 29. The patient denied taking any nonsteroidal. Denied any recent exposure t o contrast. No recent change in his medication. The patient's primary workup, pacemaker was interro gated. The patient has been on Bumex of 2 mg twice a day. Chest x-ray showed cardiomegaly with billie estion. Bumex has been held over the night. Past Medical History: Includes; 1.Hypertension. 2.Hyperlipidemia. 3.CAD status post CABG, status post PTCA back in 2018 complicated with congestive heart failure as o f echo on October 2019, ejection fraction of 35 with global hypokinesia, chronic kidney disease sta ge 4/3B, baseline creatinine 2.7, GFR of 23 as of August 2020 . 4.Diabetes since 1979, complicated with nephropathy. 5.DVT. 6.Congestive heart failure. 7.Peptic ulcer disease. Family History: Positive for CAD. Social History: Denied smoking, denied drinking, denied drugs abuse. Past Surgical History: Includes; 1.CABG. 2.Pacemaker insertion. 3.Back surgery. 4.Shoulder surgery. Review of Systems: Head and Neck: No red eye. No ear pain. GI: No nausea. No vomiting. : No polyuria. No dysuria. No hematuria. Data Analyst Etl Developer: Not applicable. Respiratory: No shortness of breath. Lying flat. Cardiovascular: Has chest pain. Has cardiac arrhythmia. Has defibrillator shock. Neuro: No neuropathy. No weakness. Has lightheadedness. Musculoskeletal: Generalized fatigue. Endocrine: No polydipsia. Skin: No rash. Home Medications: Include rosuvastatin, Lyrica, KCl, pioglitazone, pantoprazole, mexiletine, magnesi um oxide, mononitrate isosorbide, fenofibrate, Bumex, aspirin. Current Medications: In the hospital include Tylenol, aspirin, cholecalciferol, insulin, isosorbide, Actos, Lyrica, rosuvastatin. Physical Examination: General: When I saw the patient; the patient lying in bed, comfortable, not on any distress. Vital Signs: Blood pressure of 122/53, pulse of 68. There is no documentation of any low blood pres sure. Again, the patient had multiple defibrillator shocks. Abdomen: Soft, nontender. Extremities: No edema. Chest: Clear to auscultation. Heart: S1, S2. Systolic murmur. Regular. Neurologic: Alert. No focality. Laboratory Data: Urinalysis; specific gravity of 1.020. WBC 4.4, H and H 8.8/24.2. Sodium 144, pot assium 4.1, bicarb 31, BUN 66, creatinine 2.2, GFR 29, calcium 9.4 back in September. Iron saturation 2 4, ferritin of 549. Serum protein electrophoresis back in August, no M spike. PTH 56 back in September. Vitamin D 50. 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 Light chain disease has been ruled out. Stable on his baseline, looked to me normal vol ume with the presence of marginal low blood pressure. I am going to decrease the Lasix to once a day and we will monitor the patient. We will resume it tonight. 2.Hypertension, currently blood pressure in the lower side. Continue current treatment. We will re sume Lasix tomorrow. 3.Congestive heart failure. No exacerbation. Normal volume currently. Resume Bumex tomorrow with 1 mg. 4.Cardiac arrhythmia. Follow up with Cardiology. 5.Congestive heart failure as above, currently normal volume. We will follow up by resuming Bumex t omorrow. 6.Hyperlipidemia with the presence of advanced kidney disease. Discontinue fenofibrate. 7.Iron deficiency anemia. We will follow up with primary. Thank you, Dr. Padgett for allowing us to participate in the care of your patient. BRIANNE/ROM Voice ID: [id number] Report ID: [id number]
--- NOTE | 2020-12-01 18:11 | EKG ---
Test Date: 2020-11-30 Test Time: 11:33:26 Helper Coordinator: HÉCTOR MEASUREMENT RESULTS: Intervals: Rate: 65 ID: QRSD: [id number] QT: 506 QTc: 526 [place]son: P: ID: [id number] T: -17 INTERPRETIVE STATEMENTS: Wide QRS rhythm Nonspecific intraventricular block Possible Right ventricular hypertrophy Cannot rule out Septal infarct, age undetermined Lateral infarct, age undetermined T wave abnormality, consider inferior ischemia Abnormal ECG Compared to ECG 11/18/2019 15:48:24 Uncertain supraventricular rhythm now present Sinus rhythm no longer present Fusion complex(es) no longer present Ventricular premature complex(es) no longer present Myocardial infarct finding still present T-wave abnormality still present Possible ischemia still present Electronically Signed On 12-01-20 18:06:10 CDT by Payam Shane
--- NOTE | 2020-12-02 08:22 | ECHO ---
HEIGHT: 5 ft 9 in WEIGHT: 230 lb 0 oz DATE OF STUDY: 12/01/[address]: Payam Shane MD 2-DIMENSIONAL: YES M.MODE: YES DOPPLER: YES COLOR FLOW: YES TDS: NO PORTABLE: NO DEFINITY: NO BUBBLE STUDY: NO DIAGNOSIS: AICD SHOCKS CARDIAC HISTORY: CATHERIZATION: YES SURGERY: YES PROSTHETIC VALVE: NO PACEMAKER: YES MEASUREMENTS (cm) DIASTOLIC (NORMALS) SYSTOLIC (NORMALS) IVSd 1.0 (0.6-1.2) LA Diam 4.5 (1.9-4.0) LVEF 40% LVIDd 6.4 (3.5-5.7) LVIDs 5.0 (2.0-3.5) %FS 22% LVPWd 0.9 (0.6-1.2) Ao Diam 3.0 (2.0-3.7) 2 DIMENSIONAL ASSESSMENT: RIGHT ATRIUM: NORMAL LEFT ATRIUM: DILATED RIGHT VENTRICLE: PACEMAKER LEFT VENTRICLE: DILATED TRICUSPID VALVE: NORMAL MITRAL VALVE: NORMAL PULMONIC VALVE: NORMAL AORTIC VALVE: NORMAL PERICARDIAL EFFUSION: NONE AORTIC ROOT: NORMAL LEFT VENTRICULAR WALL MOTION: MILD GLOBAL HYPOKINESIS. DOPPLER/COLOR FLOW: MILD MITRAL AND TRICUSPID REGURGITATION. RIGHT VENTRICULAR SYSTOLIC PRESSURE 66 mmHg. COMMENTS: MILD GLOBAL HYPOKINESIS. LEFT VENTRICULAR EJECTION FRACTION 40%. LEFT ATRIAL ENLARGEMENT. LEFT VENTRICULAR ENLARGEMENT. PACEMAKER IN RIGHT VENTRICULAR APEX. MILD MITRAL AND TRICUSPID REGURGITATION. SEVERE PULMONARY HYPERTENSION. RIGHT VENTRICULAR SYSTOLIC PRESSURE 66 mmHg. TECHNOLOGIST: Porter CAZARES
[2020-12-02] MEDS ORDERED: BUMETANIDE 1 MG TABLET PO SCH (09:00)
--- NOTE | 2020-12-02 14:10 | CON ---
Date of Consultation: 12/01/2020 Reason For Consultation: AICD shocks x4. History Of Present Illness: Mr. Hui is a 74-year-old male. He sees Dr. Salas and Dr. Robles in [facility] for congestive heart failure and history of defibrillator. He has nonischemic cardiomyopathy. He has diabetes, high cholesterol, gastroesophageal reflux disease, and ulcers. He came in with mu ltiple shocks from his defibrillator. No chest pain reported. Denied any PND, orthopnea, pedal jhonny a, or palpitation. Denied any fever or chills. Denied any unexplained nausea or vomiting or diaphor esis. Usually, he was feeling lightheaded before shocks. Defibrillator checked when he came in and showed 4 episodes of nonsustained monomorphic ventricular tachycardia. The patient takes beta-blocke rs and mexiletine at home. He is asymptomatic right now. Past Medical History: As stated above. Allergies: NONE. Review of Systems: Negative. Social History: Negative. Family History: Negative. Medications: At home include aspirin, omeprazole, mexiletine, Lovaza, Lyrica, fenofibrate, isosorbid e, ranolazine, rosuvastatin, and nitroglycerin p.r.n. Physical Examination: Vital Signs: Stable, afebrile. HEENT: Negative. Neck: Supple without any bruit, lymphadenopathy, JVD, or thyromegaly. Chest: Clear to auscultation and percussion. Cardiac: Revealed a regular rhythm and rate. No murmurs, gallops, or rubs. Abdomen: Benign. Extremities: Revealed no clubbing, cyanosis, or edema. Laboratory Data: Chest x-ray showed possible mild pulmonary edema. His EKG showed a paced rhythm. Echocardiogram that was done before I saw the patient showed an ejection fraction of 40% and global h ypokinesis with severe pulmonary hypertension, right ventricular systolic pressure of 66 mmHg. On wa s laboratory evaluation, glucose was 152. His creatinine was 2.23. His hemoglobin was 8.1. His pot assium was 3.6. His magnesium was 2.2. His BNP was 9568. Troponin of 0.08. Impression And Plan: Chronic congestive heart failure that is systolic, status post defibrillator, n ow with defibrillator shocks x4 for monomorphic ventricular tachycardia despite a normal potassium an d normal magnesium. I discussed the case further with Dr. Salas and Dr. Robles. We will add amiodar one 400 mg p.o. b.i.d. to his mexiletine and he will see Dr. Robles in the near future. He can go danny e whenever it is okay with Dr. Padgett. We will continue his other medications including his aspirin, h is Plavix, his isosorbide, pantoprazole, Lyrica, and rosuvastatin. MORENO/ROM Voice ID: [id number] Report ID: [id number]
--- NOTE | 2020-12-07 05:30 | P.DS ---
Discharge Date: 12/01/20 Disposition: ROUTINE DISCHARGE Discharge Condition: GOOD Reason for Admission: Defibrillator shocks Consultations: Cardiology Brief History of Present Illness: Patient is a 74-year-old male with a past medical history significant for CHF, GERD, DM 2, with stents, CKD 3, HLD who presents with complaint of defibrillator shocks. Patient reports that he had a similar episode yesterday after supper. Patient again experienced similar symptoms this morning and patient reported that he received 4 defibrillator shocks. Patient reported that before the shocks he normally experiences lightheadedness and dizziness. Patient denies any other signs or symptoms. Symptoms are aggravated or relieved by nothing. Patient decided to present to the hospital for medical evaluation. Hospital Course: Patient's workup was unremarkable. Patient is clinically doing well. Patient will be started on amiodarone. Outpatient follow with Cardiology in 1-2 weeks. Vital Signs/Physical Exam: Temp Pulse Resp BP Pulse Ox 97.4 F 68 18 116/54 L 97 12/01/20 12:00 12/01/20 12:00 12/01/20 12:00 12/01/20 12:00 12/01/20 12:00 General: Alert, In no apparent distress, Oriented x3 Laboratory Data at Discharge: WBC 4.40 K/uL (4.3-10.9) 12/01/20 06:13 Hgb 8.1 g/dL (13.6-17.9) L 12/01/20 06:13 Hct 24.2 % (39.6-49.0) L 12/01/20 06:13 Plt Count 202 K/uL (152-406) 12/01/20 06:13 PT 14.2 SECONDS (9.5-12.5) H 11/30/20 12:02 INR 1.23 11/30/20 12:02 Sodium 144 mmol/L (136-145) 12/01/20 06:13 Potassium 4.1 mmol/L (3.5-5.1) 12/01/20 06:13 BUN 66 mg/dL (7-18) H 12/01/20 06:13 Creatinine 2.23 mg/dL (0.55-1.3) H 12/01/20 06:13 Glucose 106 mg/dL (74-106) 12/01/20 06:13 Magnesium 2.2 mg/dL (1.8-2.4) D 11/30/20 12:02 Troponin I 0.08 ng/mL (0.0-0.045) H 12/01/20 06:13 Triglycerides 93 mg/dL (<150) 11/30/20 18:57 Cholesterol 121 mg/dL (<200) 11/30/20 18:57 HDL Cholesterol 33 mg/dL (40-60) L 11/30/20 18:57 Cholesterol/HDL Ratio 3.67 11/30/20 18:57 Home Medications: Rosuvastatin [Crestor*] 20 mg PO BEDTIME 03/07/17 Aspirin [Aspirin EC 81 MG] 81 mg PO DAILY 06/29/17 Bumetanide 1 tab PO BID 11/18/19 Isosorbide Mononitrate [Isosorbide Mononitrate ER] 1 tab PO DAILY 11/18/19 Pantoprazole [Protonix Tab*] 1 tab PO BID 11/18/19 Pregabalin 1 tab PO BEDTIME 11/18/19 Cholecalciferol (Vitamin D3) [Vitamin D3] 2,000 unit PO DAILY 01/26/20 Fenofibrate,Micronized [Fenofibrate] 134 mg PO DAILY 01/26/20 Magnesium Oxide [Magnesium] 400 mg PO DAILY 01/26/20 Mexiletine HCl 200 mg PO BID 01/26/20 Pioglitazone HCl 45 mg PO DAILY 01/26/20 Potassium Chloride 10 meq PO BID 01/26/20 Amiodarone HCl [Cordarone*] 400 mg PO BID #68 tab 12/01/20 New Medications: Amiodarone HCl [Cordarone*] 400 mg PO BID #68 tab Physician Discharge Instructions: OK TO DC IV AND DC HOME FOLLOW-UP WITH PRIMARY CARE PROVIDER IN 1-2 WEEKS FOLLOW-UP WITH CARDIOLOGY IN 1-2 WEEKS RETURN TO THE ER IF symptoms worsen CALL or TEXT DR. PAGE AT [phone] IF ANY QUESTIONS REGARDING HOSPITAL STAY. PLEASE CALL THE FLOOR AT [phone] IF ANY MEDICATION OR NURSING QUESTIONS. Diet: AHA Activity: Fall precautions Followup: Ken Roman MD [Primary Care Provider] - Time spent managing pt's care (in minutes): 35
== END 2020-12-01 15:44 | disposition home or self-care (01) | DRG 309 ==
LOC: ER 11:27 → ERHOLD 16:44 → 2ND 16:58
PROVIDERS: ADMIT Hospitalist; ATTEND Hospitalist
DX: I47.2 Ventricular tachycardia (principal); I13.0 Hypertensive heart and chronic kidney disease with heart failure and stage 1 through stage 4 chronic kidney disease, or unspecified chronic kidney disease; I50.22 Chronic systolic (congestive) heart failure; I25.10 Atherosclerotic heart disease of native coronary artery without angina pectoris; N18.32 Chronic kidney disease, stage 3b; E11.22 Type 2 diabetes mellitus with diabetic chronic kidney disease; K21.9 Gastro-esophageal reflux disease without esophagitis; I25.5 Ischemic cardiomyopathy; D50.9 Iron deficiency anemia, unspecified; E78.5 Hyperlipidemia, unspecified; E66.9 Obesity, unspecified; Z68.34 Body mass index [BMI] 34.0-34.9, adult; Z95.1 Presence of aortocoronary bypass graft; Z86.718 Personal history of other venous thrombosis and embolism; Z95.5 Presence of coronary angioplasty implant and graft; Z95.810 Presence of automatic (implantable) cardiac defibrillator; Z23 Encounter for immunization; Z20.822 Contact with and (suspected) exposure to COVID-19
CPT/HCPCS: 36415; 71045; 80048; 80061; 81003; 82947; 83036; 83735; 83880; 84439; 84443; 84484; 85025; 85610; 90471; 93005; 93306; 96365; 96366; 99285; J1644; J3475; J7040; Q2035; U0003

== ENCOUNTER 2022-05-06 17:53 | Emergency (ER) | payer OTHER, BC ==
--- OUTSIDE RECORDS SUMMARY | 2022-05-06 17:57 | XMS REPORT | Clinical Summary ---
:1945 Author Organization [facility] Address [address] [place] [address] Care Team Providers Name Role Phone Ken Roman MD Unavailable Sola Guzman MD Primary Care Provider Allergies Not on File Medications Not on file Active Problems Not on file Encounters Date Type Specialty Care Team Description 04/18/2022 Lab Requisition Kleber Segura MD Clement, Cecilia Gladys, MD 04/13/2022 Orders Only Head and Neck Breezynulty, Surgery Russel Manzo APN 04/06/2022 Ancillary Procedure Radiology Sola Guzman Cance r MD 04/06/2022 Ancillary Procedure Radiology Sola Guzman Cance r MD 04/06/2022 Ancillary Procedure Radiology Sola Guzman Cance r MD 04/06/2022 Ancillary Procedure Radiology Sola Guzman Cance r MD 04/06/2022 Ancillary Procedure Radiology Sola Guzman Cance r MD 04/06/2022 Ancillary Procedure Radiology Sola Guzman Cance r MD 04/06/2022 Ancillary Procedure Radiology Sola Guzman Cance r MD 04/06/2022 Ancillary Procedure Radiology Sola Guzman Cance r MD 04/06/2022 Ancillary Procedure Radiology Sola Guzman Cance r MD 04/06/2022 Orders Only Head and Neck McAnulty, Mass of neck Surgery Russel Manzo APN (Primary Dx) after 05/06/2021 Social History Tobacco Use Types Packs/Day Years Used Date Smoking Tobacco: Never Assessed Sex Assigned at Date Recorded Not on file Last Filed Vital Signs Not on file Plan of Treatment Health Maintenance Due Date Last Done Comments COVID-19 Vaccination Completed 11/29/2021, 06/15/2021, 11/2020, Additional history exists Procedures Procedure Name Priority Date/Time Associated Comments Diagnosis OSI ELBOW Routine 01/12/2022 12:15 Cancer Results for this PM LEASE PICKER procedure are i n the results section. OSI WRIST Routine 01/12/2022 12:15 Cancer Results for this PM LEASE PICKER procedure are i n the results section. OSI CT MAXILLOFACIAL Routine 01/12/2022 12:14 Cancer Res ults for this AREA PM LEASE PICKER procedure are i n the results section. OSI CT SPINE LUMBAR Routine 01/11/2022 12:14 Cancer Resu lts for this PM LEASE PICKER procedure are i n the results section. OSI CT SPINE THORACIC Routine 01/11/2022 12:14 Cancer Re sults for this PM LEASE PICKER procedure are i n the results section. OSI CT SPINE CERVICAL Routine 01/11/2022 12:14 Cancer Re sults for this PM LEASE PICKER procedure are i n the results section. OSI CT CHEST ABDOMEN Routine 01/11/2022 12:13 Cancer Res ults for this PELVIS PM LEASE PICKER procedure are i n the results section. OSI CT BRAIN Routine 01/11/2022 12:13 Cancer Results for this PM LEASE PICKER procedure are i n the results section. OSI CT SFT TISS NECK Routine 12/30/2021 12:13 Cancer Res ults for this PM CDT procedure are i n the results section. after 05/06/2021 Results OSI Wrist (01/12/2022 12:15 PM LEASE PICKER) Specimen (Source) Anatomical Location Collection Method / Collectio n Time Received Time / Laterality Volume Narrative Systemgenerated, Documentation - 023 12:15 PM LEASE PICKER Study acquired at another institution. For comparison only. No MD Mcneill originated interpretation requested or a vailable. Sola Guzman MD IMG OUTSIDE IMAGE ORDERABLES OSI Elbow (01/12/2022 12:15 PM LEASE PICKER) Specimen (Source) Anatomical Location Collection Method / Collectio n Time Received Time / Laterality Volume Narrative Systemgenerated, Documentation - 023 12:15 PM LEASE PICKER Study acquired at another institution. For comparison only. No MD Mcneill originated interpretation requested or a vailable. Sola COLLINSG OUTSIDE IMAGE ORDERABLES OSI CT Maxillofacial Area (01/12/2022 12:14 PM LEASE PICKER) Specimen (Source) Anatomical Location Collection Method / Collectio n Time Received Time / Laterality Volume Narrative Systemgenerated, Documentation - 023 12:14 PM LEASE PICKER Study acquired at another institution. For comparison only. No MD Mcneill originated interpretation requested or a vailable. Sola COLLINSG OUTSIDE IMAGE ORDERABLES OSI CT Spine Thoracic (01/11/2022 12:14 PM LEASE PICKER) Specimen (Source) Anatomical Location Collection Method / Collectio n Time Received Time / Laterality Volume Narrative Systemgenerated, Documentation - 023 12:14 PM LEASE PICKER Study acquired at another institution. For comparison only. No MD Mcneill originated interpretation requested or a vailable. Sola COLLINSG OUTSIDE IMAGE ORDERABLES OSI CT Spine Lumbar (01/11/2022 12:14 PM LEASE PICKER) Specimen (Source) Anatomical Location Collection Method / Collectio n Time Received Time / Laterality Volume Narrative Systemgenerated, Documentation - 023 12:14 PM LEASE PICKER Study acquired at another institution. For comparison only. No MD Mcneill originated interpretation requested or a vailable. Sola COLLINSG OUTSIDE IMAGE ORDERABLES OSI CT Spine Cervical (01/11/2022 12:14 PM LEASE PICKER) Specimen (Source) Anatomical Location Collection Method / Collectio n Time Received Time / Laterality Volume Narrative Systemgenerated, Documentation - 023 12:14 PM LEASE PICKER Study acquired at another institution. For comparison only. No MD Mcneill originated interpretation requested or a vailable. Sola COLLINSG OUTSIDE IMAGE ORDERABLES OSI CT CHEST ABDOMEN PELVIS (01/11/2022 12:13 PM LEASE PICKER) Specimen (Source) Anatomical Location Collection Method / Collectio n Time Received Time / Laterality Volume Narrative Systemgenerated, Documentation - 023 12:14 PM LEASE PICKER Study acquired at another institution. For comparison only. No MD Mcneill originated interpretation requested or a vailable. Sola Guzman MD IMG OUTSIDE IMAGE ORDERABLES OSI CT Brain (01/11/2022 12:13 PM LEASE PICKER) Specimen (Source) Anatomical Location Collection Method / Collectio n Time Received Time / Laterality Volume Narrative Systemgenerated, Documentation - 023 12:13 PM LEASE PICKER Study acquired at another institution. For comparison only. No MD Mcneill originated interpretation requested or a vailable. Sola Guzman MD IMG OUTSIDE IMAGE ORDERABLES OSI CT Sft Tiss Neck (12/30/2021 12:13 PM CDT) Specimen (Source) Anatomical Location Collection Method / Collectio n Time Received Time / Laterality Volume Narrative Systemgenerated, Documentation - 023 12:13 PM LEASE PICKER Study acquired at another institution. For comparison only. No MD Mcneill originated interpretation requested or a vailable. 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
--- NOTE | 2022-05-06 18:50 | RAD REPORT ---
EXAM DESCRIPTION: CT - Head Brain Wo Cont - 05/06/2022 6:30 pm CLINICAL HISTORY: DIZZINESS COMPARISON: No comparisons TECHNIQUE: Noncontrast head CT images ad were obtained without IV contrast. Multiplanar reformats we re generated and reviewed. All CT scans are performed using dose optimization technique as appropriate and may include automated exposure control or mA/KV adjustment according to patient size. FINDINGS: No intracranial hemorrhage, mass, or edema. Midline structures are unremarkable. Moderate diffuse parenchymal volume loss. No evidence of hydrocephalus. Abdul-white matter differentiation is preserved, without evidence of acute infarct. No abnormal extra- axial fluid collections. Mastoid air cells and visualized portions of the paranasal sinuses are clear. No acute bony findings. IMPRESSION: No evidence of an acute intracranial process. Age related moderate diffuse parenchymal volume loss.
[2022-05-06 18:54] LABS: SARS-CoV-2 Antigen Rapid Res Negative (Negative)
[2022-05-06 18:56] LABS: Absolute Lymphocytes (CBC) 0.6 K/uL (0.7-4.9); Hematocrit 25.8 % (39.6-49.0); Lymphocytes % 12.1 % (15.3-44.8); MCV 92.8 fL (80-100); MPV 9.3 fL (7.6-11.3); RBC Red Blood Cell Count 2.78 M/uL (4.33-5.43)
[2022-05-06 18:59] LABS: Protime INR 1.45
[2022-05-06 19:26] LABS: Potassium 4.1 mmol/L (3.5-5.1); Troponin High Sensitivity 17.5 pg/mL (<58.9)
--- NOTE | 2022-05-06 19:33 | RAD REPORT ---
[facility]05 [facility] CLINICAL HISTORY: near syncope COMPARISON: Chest Single View dated 11/30/2020; Chest Single View dated 11/18/2019; Chest Single View dated 11/08/2019 TECHNIQUE: Portable AP view of the chest. FINDINGS: Stable patchy left basilar airspace opacification, could reflect mild congestion, pneumoni tis, or a combination of both. No pneumothorax or effusion. Stable mild cardiomegaly The mediastinal contours are unremarkable. 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 Right chest wall pacer/AICD in place. IMPRESSION: Stable findings as above.
[2022-05-06 19:41] LABS: Urine Blood Negative (Negative); Urine Glucose Negative (Negative); Urine Protein Negative (Negative)
[2022-05-06 19:50] LABS: Urine Bacteria None Seen /HPF (<20); Urine Mucus Slight /HPF (None Seen); Urine RBC <5 /HPF (None Seen)
[2022-05-07 02:42] VITALS: TEMP 97.8
[2022-05-07 02:47] VITALS: BP 120/47; O2SAT 100
--- NOTE | 2022-05-09 13:11 | EKG ---
Test Date: 2022-05-06 Test Time: 19:19:12 Systems Integration Engineer: MEASUREMENT RESULTS: Intervals: Rate: 63 NC: QRSD: 170 QT: 524 QTc: 536 [place]: P: NC: QRS: 125 T: 15 INTERPRETIVE STATEMENTS: Electronic atrial pacemaker Nonspecific intraventricular block Lateral infarct, age undetermined Abnormal ECG Compared to ECG 11/30/2020 11:33:26 Uncertain supraventricular rhythm no longer present T-wave abnormality no longer present Possible ischemia no longer present Myocardial infarct finding still present Electronically Signed On 05-09-22 13:06:08 CDT by Jay Lee
--- NOTE | 2022-05-20 16:10 | ER ---
Nurse's Notes [facility] Name: Bc Hui Age: 76 yrs Sex: Male : 1945 Arrival Date: 05/06/2022 Time: 18:05 Bed 3 Private MD: Diagnosis: Syncope Near;Chronic kidney disease, unspecified;Anemia in chronic kidney disease Presentation: 05/06 18:01 Method Of Arrival: EMS kr3 18:01 Chief complaint: EMS states: toned out to patient home for a defibrillator that went kr3 off. Caused patient to feel flushed and dizzy. Coronavirus screen: Vaccine status: Patient reports receiving the 2nd dose of the covid vaccine. Ebola Screen: Patient denies travel to an Ebola-affected area in the 21 days before illness onset. Initial Sepsis Screen: Does the patient meet any 2 criteria? No. Patient's initial sepsis screen is negative. Does the patient have a suspected source of infection? No. Patient's initial sepsis screen is negative. Risk Assessment: Do you want to hurt yourself or someone else? Patient reports no desire to harm self or others. Onset of symptoms was May 06, 2022. 18:01 Acuity: SAJAN 3 kr3 Triage Assessment: 18:01 General: Appears in no apparent distress. comfortable, Behavior is calm, cooperative, kr3 appropriate for age. Pain: Denies pain. EENT: No signs and/or symptoms were reported regarding the EENT system. Neuro: Level of Consciousness is awake, alert, obeys commands, Oriented to person, place, time, situation. Cardiovascular: Patient's skin is warm and dry. Respiratory: Airway is patent Respiratory effort is even, unlabored, Respiratory pattern is regular, symmetrical. GI: Abdomen is round. : No signs and/or symptoms were reported regarding the genitourinary system. Derm: No signs and/or symptoms reported regarding the dermatologic system. Musculoskeletal: No signs and/or symptoms reported regarding the musculoskeletal system. Historical: - Home Meds: 18: metoprolol tartrate 25 mg Oral tablet [Active]; amiodarone 200 mg Oral tablet 1 tab kr3 once [Active]; aspirin 81 mg Oral chew [Active]; mexiletine 200 mg Oral cap 1 cap every 12 hours [Active]; Xarelto 2.5 mg oral tablet once [Active]; Colace 100 mg oral capsule 2 times per day [Active]; - PMHx: 18:26 Diabetes - NIDDM; High Cholesterol; Stomach ulcer; kr3 - Immunization history:: Adult Immunizations up to date. - Social history:: Smoking status: Patient denies any tobacco usage or history of. Screenin:30 Abuse screen: Denies threats or abuse. Denies injuries from another. Nutritional ha1 screening: No deficits noted. Tuberculosis screening: No symptoms or risk factors identified. Assessment: 19:50 Reassessment: Patient and/or family updated on plan of care and expected duration. Pain ha1 level reassessed. Patient is alert, oriented x 3, equal unlabored respirations, skin warm/dry/pink. Patient denies pain at this time. 19:50 General: Appears comfortable, Behavior is calm, cooperative. Neuro: Level of ha1 Consciousness is awake, alert, obeys commands, Oriented to person, place, time. Cardiovascular: Heart tones S1 S2 present Capillary refill < 3 seconds Patient's skin is warm and dry. 21:02 General: Appears in no apparent distress. comfortable, Behavior is calm, cooperative, mb9 appropriate for age. Pain: Denies pain. Neuro: Level of Consciousness is awake, alert, obeys commands, Oriented to person, place, time, situation, Appropriate for age. Cardiovascular: Heart tones S1 S2 present Rhythm is regular. Respiratory: Airway is patent Respiratory effort is even, unlabored, Respiratory pattern is regular, symmetrical. Derm: Skin is pink, warm \T\ dry. 22:00 Reassessment: Patient and/or family updated on plan of care and expected duration. Pain ha1 level reassessed. Patient is alert, oriented x 3, equal unlabored respirations, skin warm/dry/pink. Patient denies pain at this time. Patient states feeling better. Patient states symptoms have improved. Vital Signs: 18:01 BP 125 / 57; Pulse 61; Resp 15; Temp 97.8(O); Pulse Ox 100% on R/A; Weight 97.52 kg; kr3 Height 5 ft. 9 in. ; Pain 0/10; 19:30 BP 106 / 56; Pulse 67; Resp 20 S; Pulse Ox 100% on R/A; ha1 20:00 BP 116 / 51; Pulse 60; Resp 16 S; Pulse Ox 99% on R/A; ha1 21:03 BP 108 / 59; Pulse 60; Resp 19; Pulse Ox 99% ; mb9 22:00 BP 120 / 47; Pulse 61; Resp 18 S; Pulse Ox 100% on R/A; ha1 18:01 Body Mass Index 31.75 (97.52 kg, 175.26 cm) kr3 18:01 Pain Scale: Adult 3 ED Course: 18:01 Arm band placed on right wrist. Patient placed in an exam room, on a stretcher. kr3 18:05 Patient arrived in ED. ap3 18:05 Xander Castro PA is PHCP. cp 18:05 Oziel Ram MD is Attending Physician. cp 18:17 Cindy Armenta, RN is Primary Nurse. kr3 18:26 Triage completed. kr3 18:32 CT Head Brain wo Cont In Process Unspecified. EDMS 19:08 XRAY Chest (1 view) In Process Unspecified. EDMS 19:30 Patient has correct armband on for positive identification. Placed in gown. Bed in low ha1 position. Call light in reach. Side rails up X 1. Adult w/ patient. 22:08 No provider procedures requiring assistance completed. IV discontinued, intact, ha1 bleeding controlled, No redness/swelling at site. Pressure dressing applied. Administered Medications: No medications were administered Medication: 22:08 VIS not applicable for this client. ha1 Outcome: 21:22 Discharge ordered by MD. cp 22:08 Discharged to home via wheelchair, with family. ha1 22:08 Condition: stable 22:08 Discharge instructions given to patient, family, Instructed on discharge instructions, follow up and referral plans. Demonstrated understanding of instructions, follow-up care. 22:08 Patient left the ED. ha1 Signatures: Dispatcher [employer] EDMS Xander Castro PA PA cp Prokisch, Amanda RN UNA ap3 Yamilka Stephenson RN RN ha1 Cindy Armenta, UNA RN kr3 Gayle Noriega RN RN mb9
--- NOTE | 2022-05-20 16:11 | EDPHYS ---
Physician Documentation [facility] Name: Bc Hui Age: 76 yrs Sex: Male : 1945 Arrival Date: 05/06/2022 Time: 18:05 Bed 3 Private MD: ED Physician Oziel Ram HPI: 05/06 18:15 This 76 yrs old Male presents to ER via EMS with complaints of Near Syncope. cp 18:15 The patient has experienced near-syncope, almost passed out, felt dizzy, felt generally cp weak. Onset: The symptoms/episode began/occurred today. Duration: This was a single episode. Associated injury: The patient did not suffer any apparent associated injury. Current symptoms: general weakness. Patient with history of [employer] defibrillator placement. Reports feeling defibrillator shock" him after episode of dizziness, being lightheaded and near syncope. Historical: - Home Meds: 18:26 metoprolol tartrate 25 mg Oral tablet [Active]; amiodarone 200 mg Oral tablet 1 tab kr3 once [Active]; aspirin 81 mg Oral chew [Active]; mexiletine 200 mg Oral cap 1 cap every 12 hours [Active]; Xarelto 2.5 mg oral tablet once [Active]; Colace 100 mg oral capsule 2 times per day [Active]; - PMHx: 18:26 Diabetes - NIDDM; High Cholesterol; Stomach ulcer; kr3 - Immunization history:: Adult Immunizations up to date. - Social history:: Smoking status: Patient denies any tobacco usage or history of. ROS: 18:20 Constitutional: Negative for body aches, chills, fever, poor PO intake. cp 18:20 Eyes: Negative for injury, pain, redness, and discharge. cp 18:20 ENT: Negative for drainage from ear(s), ear pain, sore throat, difficulty swallowing, difficulty handling secretions. 18:20 Cardiovascular: Positive for edema, Negative for chest pain, palpitations. 18:20 Respiratory: Negative for cough, shortness of breath, wheezing. 18:20 Abdomen/GI: Negative for abdominal pain, vomiting, diarrhea, constipation. 18:20 Neuro: Positive for dizziness, near syncope, weakness, Negative for altered mental status, headache, syncope. 18:20 All other systems are negative. Exam: 18:25 Constitutional: The patient appears in no acute distress, alert, awake, cp non-diaphoretic, non-toxic, well developed, well nourished. 18:25 Head/Face: Normocephalic, atraumatic. cp 18:25 Eyes: Periorbital structures: appear normal, Pupils: equal, round, and reactive to light and accomodation, Extraocular movements: intact throughout, Conjunctiva: normal, no exudate, no injection, Sclera: no appreciated abnormality, Lids and lashes: appear normal, bilaterally. 18:25 ENT: External ear(s): are unremarkable, Nose: is normal, Mouth: Lips: moist, Oral mucosa: moist, Posterior pharynx: is normal, airway is patent, no erythema, no exudate. 18:25 Neck: ROM/movement: is normal, is supple, without pain, no range of motions limitations. 18:25 Chest/axilla: Inspection: normal, Palpation: is normal, no crepitus, no tenderness. 18:25 Cardiovascular: Rate: normal, Rhythm: regular, Edema: ankle edema, that is mild, JVD: is not appreciated. 18:25 Respiratory: the patient does not display signs of respiratory distress, Respirations: normal, no use of accessory muscles, no retractions, labored breathing, is not present, Breath sounds: are clear throughout, no decreased breath sounds, no stridor, no wheezing. 18:25 Abdomen/GI: Inspection: abdomen appears normal, Palpation: abdomen is soft and non-tender, in all quadrants. 18:25 Back: pain, is absent, ROM is normal. 18:25 Neuro: Orientation: to person, place \\T\\ time. Mentation: is normal, Motor: moves all fours, general weakness with no focal deficits, Sensation: is normal. 19:25 ECG was reviewed by the Attending Physician. cp Vital Signs: 18:01 BP 125 / 57; Pulse 61; Resp 15; Temp 97.8(O); Pulse Ox 100% on R/A; Weight 97.52 kg; kr3 Height 5 ft. 9 in. ; Pain 0/10; 19:30 BP 106 / 56; Pulse 67; Resp 20 S; Pulse Ox 100% on R/A; ha1 20:00 BP 116 / 51; Pulse 60; Resp 16 S; Pulse Ox 99% on R/A; ha1 21:03 BP 108 / 59; Pulse 60; Resp 19; Pulse Ox 99% ; mb9 22:00 BP 120 / 47; Pulse 61; Resp 18 S; Pulse Ox 100% on R/A; ha1 18:01 Body Mass Index 31.75 (97.52 kg, 175.26 cm) kr3 18:01 Pain Scale: Adult kr3 MDM: 18:07 Patient medically screened. cp 18:30 Differential Diagnosis: cardiac arrhythmia, cerebrovascular accident, GI bleed, cp seizure, sepsis. 21:20 Data reviewed: vital signs, nurses notes, lab test result(s), EKG, radiologic studies, cp CT scan, plain films. 21:20 Counseling: I had a detailed discussion with the patient and/or guardian regarding: the cp historical points, exam findings, and any diagnostic results supporting the discharge/admit diagnosis, lab results, radiology results. Response to treatment: the patient's symptoms have mildly improved after treatment. ED course: VS noted. Admission discussed and recommended, but patient requesting discharge to home to f/u with primary software support specialist. Patient instructed he can return at any time if symptoms return. 05/06 18:07 Order name: Basic Metabolic Panel; Complete Time: 20: cp 05/06 20:09 Interpretation: Normal except: GLUC 169; BUN 38; CRE 2.64; GFR 24. cp 05/06 18:07 Order name: CBC with Diff; Complete Time: 20: cp 05/06 20:09 Interpretation: Normal except: RBC 2.78; HGB 8.4; HCT 25.8; RDW 15.7; LYM% 12.1; cp EOSINOPHIL % 6.0; LYMA 0.6. 05/06 18:07 Order name: Magnesium; Complete Time: 20:09 cp 05/06 18:07 Order name: NT PRO-BNP; Complete Time: 20: cp 05/06 18:07 Order name: PT-INR; Complete Time: 20: cp 05/06 18:07 Order name: Troponin HS; Complete Time: 20: cp 05/06 18:07 Order name: Urine Microscopic Only; Complete Time: 20: cp 05/06 18:15 Order name: SARS RAPID; Complete Time: 20:09 aa5 05/06 19:41 Order name: Urine Dipstick-Ancillary; Complete Time: 20: EDMS 05/06 18:07 Order name: XRAY Chest (1 view); Complete Time: 20:09 cp 05/06 18:07 Order name: CT Head Brain wo Cont; Complete Time: 18:53 cp 05/06 18:07 Order name: EKG; Complete Time: 18:07 cp 05/06 18:07 Order name: Cardiac monitoring; Complete Time: 18:16 cp 05/06 18:07 Order name: EKG - Nurse/Tech; Complete Time: 19:25 cp 05/06 18:07 Order name: IV Saline Lock; Complete Time: 19:25 cp 05/06 18:07 Order name: Labs collected and sent; Complete Time: 19:25 cp 05/06 18:07 Order name: O2 Per Protocol; Complete Time: 18:16 cp 05/06 18:07 Order name: O2 Sat Monitoring; Complete Time: 18:16 cp 05/06 18:07 Order name: Urine Dipstick-Ancillary (obtain specimen); Complete Time: 19:41 cp EC:25 Rate is 63 beats/min. Rhythm is regular, Paced. QRS interval is prolonged at 170 msec. cp Interpreted by me. Reviewed by me. Administered Medications: No medications were administered Disposition Summary: 05/06/22 21:22 Discharge Ordered Location: Home cp Problem: new cp Symptoms: have improved cp Condition: Stable cp Diagnosis - Syncope Near cp - Chronic kidney disease, unspecified cp - Anemia in chronic kidney disease cp Followup: cp - With: Private Physician - When: 2 - 3 days - Reason: Recheck today's complaints Discharge Instructions: - Discharge Summary Sheet cp - Near-Syncope cp Forms: - Medication Reconciliation Form cp - Thank You Letter cp - Antibiotic Education cp - Prescription Opioid Use cp Addendum: 05/09/2022 08:42 Co-signature as Attending Physician, Oziel Ram MD I reviewed the patient's care r n provided by the Advanced Practice Provider and agree with the diagnosis and treatment plan. Signatures: Dispatcher [employer] Oziel Pierre MD MD rn Xander Castro PA PA cp Cindy Armenta RN RN kr3 Corrections: (The following items were deleted from the chart) 05/07 15:40 15:38 This 76 yrs old Male presents to ER via EMS with complaints of Near Syncope. cp cp
== END 2022-05-06 22:08 | disposition home or self-care (01) ==
LOC: ER 17:53
DX: R55 Syncope and collapse (principal); E11.22 Type 2 diabetes mellitus with diabetic chronic kidney disease; D63.1 Anemia in chronic kidney disease; N18.9 Chronic kidney disease, unspecified; Z20.822 Contact with and (suspected) exposure to COVID-19; Z79.01 Long term (current) use of anticoagulants; Z79.3 Long term (current) use of hormonal contraceptives; Z79.82 Long term (current) use of aspirin
CPT/HCPCS: 36415; 70450; 71045; 80048; 81003; 81015; 83735; 83880; 84484; 85025; 85610; 87811; 93005; 99283

== ENCOUNTER → 2023-05-18 | Emergency (ER) | payer OTHER, BC ==
--- OUTSIDE RECORDS SUMMARY | 2023-05-18 15:11 | XMS REPORT | Clinical Summary ---
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 after 05/18/2022 Social History Tobacco Use Types Packs/Day Years Used Date Smoking Tobacco: Never Assessed Sex and Gender Information Value Date Recorded Sex Assigned at Not on file Gender Identity Not on file Sexual Orientation Not on file Plan of Treatment Health Maintenance Due Date Last Done Comments COVID-19 Vaccine (2022-2 4 season) 2022 11/29/2021, 06/15/2021, 11/06/2020, Additional history exists Influenza Vaccine 10/28/2022 12/01/2020, 12/12/2018 Care Teams Guest Services Relationship Specialty Start Date End Date Ken Roman MD [address] [place] [address] PCP - External Primary Care Provider Family Practice 04/05/22 [place] [address] [place] [id number] PCP - General Head and Neck Surgery 04/05/22
[2023-05-18 16:48] LABS: Absolute Eosinophils 0.2 K/uL (0-0.5); Absolute Lymphocytes (CBC) 0.6 K/uL (0.7-4.9); Absolute Monocytes 0.5 K/uL (0.1-1.3); Basophils % 1.1 % (0-1.3); Eosinophils % 3.8 % (0-4.4); Hematocrit 38.2 % (39.6-49.0); Hemoglobin 12.9 g/dL (13.6-17.9); Lymphocytes % 14.4 % (15.3-44.8); MCH 32.3 pg (27.0-35.0); MCHC 33.7 g/dL (32.0-36.0); MCV 95.7 fL (80-100); MPV 9.4 fL (7.6-11.3); Monocytes % 10.7 % (3.3-12.3); Nucleated Red Blood Cells % 0.2 % (0-0); Platelets 191 thou/uL (152-406); RBC Red Blood Cell Count 3.99 M/uL (4.33-5.43)
[2023-05-18 16:49] LABS: PT Prothrombin Time 16.2 SECONDS (9.5-12.5); Protime INR 1.49
[2023-05-18 17:05] LABS: Albumin 2.9 g/dL (3.4-5.0); Albumin/Globulin Ratio 0.9 (1.1-1.8); Anion Gap 10.6 mEq/L (5.0-15.0); Bilirubin Direct 0.2 mg/dL (0-0.2); Bilirubin Indirect, Calculated 0.3 mg/dL (0.2-0.8); Bilirubin Total 0.5 mg/dL (0.2-1.0); Globulin 3.1 g/dL (2.3-3.5); Magnesium 1.7 mg/dL (1.6-2.4); Potassium 3.6 mEq/L (3.5-5.1)
--- NOTE | 2023-05-18 17:15 | ER ---
Nurse's Notes [facility] Name: Bc Hui Age: 77 yrs Sex: Male : 1945 Arrival Date: 05/18/2023 Time: 15:09 Bed 13 Private MD: Diagnosis: Ventricular tachycardia now resolved, palpitations Presentation: 05/17 15:15 Chief complaint: Patient states: "Dr. Robles sent me here because my defibrillator mb9 shocked me twice. My heart starts racing and it shocks me. I have chest pain, SOB, N, and dizzy.". Coronavirus screen: Vaccine status: Patient reports receiving the 2nd dose of the covid vaccine. Ebola Screen: No symptoms or risks identified at this time. Initial Sepsis Screen: Does the patient meet any 2 criteria? No. Patient's initial sepsis screen is negative. Does the patient have a suspected source of infection? No. Patient's initial sepsis screen is negative. Risk Assessment: Do you want to hurt yourself or someone else? Patient reports no desire to harm self or others. Onset of symptoms was May 18, 2023. 15:15 Method Of Arrival: Wheelchair mb9 15:15 Acuity: SAJAN 2 mb9 Triage Assessment: 15:18 General: Appears in no apparent distress. Behavior is calm, cooperative. Pain: mb9 Complains of pain in chest. Neuro: House Agitation-Sedation Scale (RASS): 0 - Alert and Calm Level of Consciousness is awake, alert, obeys commands, Oriented to person, place, time, situation, Appropriate for age. Cardiovascular: Patient's skin is warm and dry. Cardiovascular: Reports chest pain. Respiratory: Reports shortness of breath Airway is patent. GI: Reports nausea. Historical: - Allergies: 15:17 No Known Allergies; mb9 - Home Meds: 15:17 Xarelto 2.5 mg Oral tablet once [Active]; metoprolol tartrate 25 mg Oral tablet mb9 [Active]; amiodarone 200 mg Oral tablet 1 tab once [Active]; aspirin 81 mg Oral chew [Active]; Colace 100 mg Oral capsule 2 times per day [Active]; mexiletine 200 mg Oral cap 1 cap every 12 hours [Active]; - PMHx: 15:17 Diabetes - NIDDM; High Cholesterol; Stomach ulcer; P16 cancer (Stomach ulcer); mb9 15:19 Peritoneal Dialysis; mb9 - PSHx: 15:17 Pacemaker (Stomach ulcer); mb9 - Immunization history:: Adult Immunizations up to date. - Social history:: Smoking status: Patient denies any tobacco usage or history of. Screenin:57 [facility] ED Fall Risk Assessment (Adult) History of falling in the last 3 months, me1 including since admission No falls in past 3 months (0 pts) Confusion or Disorientation No (0 pts) Intoxicated or Sedated No (0 pts) Impaired Gait No (0 pts) Mobility Assist Device Used No (0 pt) Altered Elimination No (0 pt) Score/Fall Risk Level 0 - 2 = Low Risk Maintained a safe environment, Provided non-skid footwear, Hourly rounding (assess needs \\T\\ fall precautionary measures) done. Abuse screen: Denies threats or abuse. Nutritional screening: No deficits noted. Tuberculosis screening: No symptoms or risk factors identified. Assessment: 16:00 Reassessment: Patient and/or family updated on plan of care and expected duration. Pain me1 level reassessed. Patient is alert, oriented x 3, equal unlabored respirations, skin warm/dry/pink. 16:28 General: defibrillator interrogated. . me1 16:57 General: Appears comfortable, obese, well groomed, well developed, Behavior is calm, me1 cooperative, appropriate for age, Reports Sent by because defibrillator shocked him twice. Before each shock his heart races, he becomes sob, has cp and gets dizzy. Denies cp and sob at this time. Pain: Denies pain. Neuro: Level of Consciousness is awake, alert, obeys commands, Oriented to person, place, time, situation, Appropriate for age. Cardiovascular: Capillary refill < 3 seconds Patient's skin is warm and dry. Cardiovascular: Reports chest pain, lightheadedness, nausea, palpitations, shortness of breath, two episodes of heart racing, chest pain, sob, dizziness and nausea then defibrillator shocked patient. Denies chest pain and sob at this time. Respiratory: Airway is patent Trachea midline Respiratory effort is even, unlabored, Respiratory pattern is regular, symmetrical. Derm: Skin is intact, Skin is pink, warm \\T\\ dry. 17:00 Reassessment: Patient and/or family updated on plan of care and expected duration. Pain me1 level reassessed. Patient is alert, oriented x 3, equal unlabored respirations, skin warm/dry/pink. Patient states feeling better. 18:00 Reassessment: Patient and/or family updated on plan of care and expected duration. Pain me1 level reassessed. Patient is alert, oriented x 3, equal unlabored respirations, skin warm/dry/pink. 19:00 Reassessment: Patient and/or family updated on plan of care and expected duration. Pain me1 level reassessed. Patient is alert, oriented x 3, equal unlabored respirations, skin warm/dry/pink. 20:00 Reassessment: Patient and/or family updated on plan of care and expected duration. Pain me1 level reassessed. Patient is alert, oriented x 3, equal unlabored respirations, skin warm/dry/pink. Vital Signs: 15:15 BP 140 / 82; Pulse 78; Resp 18; Temp 98; Pulse Ox 100% ; Weight 88.9 kg; Height 5 ft. 8 mb9 in. ; 16:00 BP 127 / 67; Pulse 60; Resp 16; Pulse Ox 100% on R/A; me1 16:45 BP 126 / 66; Pulse 60; Resp 18; Pulse Ox 100% on R/A; me1 17:00 BP 125 / 65; Pulse 60; Resp 18; Pulse Ox 100% on R/A; me1 18:00 BP 125 / 71; Pulse 60; Resp 16; Pulse Ox 100% on R/A; me1 19:00 BP 172 / 82; Pulse 64; Resp 16; Pulse Ox 100% on R/A; me1 20:00 BP 149 / 73; Pulse 60; Resp 16; Pulse Ox 100% on R/A; me1 21:00 BP 139 / 72; Pulse 60; Resp 18; Pulse Ox 100% on R/A; me1 21:30 BP 142 / 68; Pulse 60; Resp 16; Pulse Ox 100% on R/A; me1 15:15 Body Mass Index 29.80 (88.90 kg, 172.72 cm) mb9 ED Course: 15:12 Patient arrived in ED. mg5 15:14 Yuly Baker MD is Attending Physician. sp3 15:17 Triage completed. mb9 15:18 Arm band placed on. mb9 15:28 EKG done, by ED staff, reviewed by Yuly Baker MD. mb9 15:30 Client placed on continuous cardiac and pulse oximetry monitoring. NIBP monitoring me1 applied. bus monitor on. Pulse ox on. NIBP on. 16:01 XRAY Chest (1 view) In Process Unspecified. EDMS 16:03 Cammy Gustafson, RN is Primary Nurse. me1 16:42 Inserted saline lock: 20 gauge in right upper arm, using aseptic technique. Blood kd3 collected. 16:42 Initial lab(s) drawn, by me, sent to lab. kd3 16:56 No provider procedures requiring assistance completed. me1 16:57 Patient has correct armband on for positive identification. Call light in reach. Side me1 rails up X2. Provided Education on: POC. Verbalized understanding. . 17:15 Rolando Rivers is Hospitalizing Provider. sp3 19:07 Contacted [facility] for update on transfer, Jennifer with transfer center said we are rv1 still awaiting call back from blower installer. 20:42 Attending Physician role handed off by Yuly Baker MD sp4 20:42 Ziyad Mccartney MD is Attending Physician. sp4 20:58 Patient transferred, IV remains in place. me1 Administered Medications: No medications were administered Medication: 16:57 VIS not applicable for this client. me1 Outcome: 17:15 Decision to Hospitalize by Provider. sp3 17:38 ER care complete, transfer ordered by MD. sp3 20:58 Transferred by ground EMS to [facility], [place] form completed. me1 Note: Report given to UNA Hess 20:58 Condition: stable 20:58 Instructed on the need for transfer, 21:55 Patient left the ED. me1 Signatures: Dispatcher [employer] EDMS Yuly Baker MD MD sp3 Lona Sears RN RN kd3 Gayle Noriega RN RN mb9 Adele Power rv1 Ziyad Mccartney MD MD sp4 Cammy Gustafson, RN RN me1 Iris Gonzales mg5 Corrections: (The following items were deleted from the chart) 16:56 15:15 Chief complaint: Patient states: "Dr. Travis sent me here because my defibrillator me1 shocked me twice. My heart starts racing and it shocks me. I have chest pain, SOB, N, and dizzy." mb9 17:03 15:20 Client placed on continuous cardiac and pulse oximetry monitoring. NIBP me1 monitoring applied. bus monitor on. Pulse ox on. NIBP on. me1
--- NOTE | 2023-05-18 17:15 | EDPHYS ---
Physician Documentation [facility] Name: Bc Hui Age: 77 yrs Sex: Male : 1945 Arrival Date: 05/18/2023 Time: 15:09 Bed 13 Private MD: ED Physician Ziyad Mccartney HPI: 05/17 16:10 This 77 yrs old Male presents to ER via Wheelchair with complaints of Palpitations, sp3 Sent By 16:10 77-year-old male with history of CAD status post bi-chamber defibrillator/pacemaker now sp3 presents to the ED referred by his PCP and parts consultant/EP physician for palpitations and near syncope with 2 shocks delivered. Patient's physician team does not hepatologists at our hospital. He denies ongoing symptoms other than fatigue. He currently denies headache, fever, URI symptoms, chest pain, shortness of breath, back pain, abdominal pain, ongoing palpitations, nausea, vomiting, diarrhea, syncope, focal neurological deficit, weakness, or any other signs or symptoms on ROS at this time.. Historical: - Allergies: 15:17 No Known Allergies; mb9 - Home Meds: 15:17 Xarelto 2.5 mg Oral tablet once [Active]; metoprolol tartrate 25 mg Oral tablet mb9 [Active]; amiodarone 200 mg Oral tablet 1 tab once [Active]; aspirin 81 mg Oral chew [Active]; Colace 100 mg Oral capsule 2 times per day [Active]; mexiletine 200 mg Oral cap 1 cap every 12 hours [Active]; - PMHx: 15:17 Diabetes - NIDDM; High Cholesterol; Stomach ulcer; P16 cancer (Stomach ulcer); mb9 15:19 Peritoneal Dialysis; mb9 - PSHx: 15:17 Pacemaker (Stomach ulcer); mb9 - Immunization history:: Adult Immunizations up to date. - Social history:: Smoking status: Patient denies any tobacco usage or history of. ROS: 16:12 Constitutional: Negative for fever, chills, and weight loss, Eyes: Negative for injury, sp3 pain, redness, and discharge, ENT: Negative for injury, pain, and discharge, Neck: Negative for injury, pain, and swelling, Respiratory: Negative for shortness of breath, cough, wheezing, and pleuritic chest pain, Abdomen/GI: Negative for abdominal pain, nausea, vomiting, diarrhea, and constipation, Back: Negative for injury and pain, MS/Extremity: Negative for injury and deformity, Skin: Negative for injury, rash, and discoloration, Neuro: Negative for headache, weakness, numbness, tingling, and seizure, Psych: Negative for depression, anxiety, suicide ideation, homicidal ideation, and hallucinations, Allergy/Immunology: Negative for hives, rash, and allergies, Endocrine: Negative for neck swelling, polydipsia, polyuria, polyphagia, and marked weight changes, Hematologic/Lymphatic: Negative for swollen nodes, abnormal bleeding, and unusual bruising, 16:12 All other systems are negative, Exam: 16:12 Constitutional: This is a well developed, well nourished patient who is awake, alert, sp3 and in no acute distress. Head/Face: Normocephalic, atraumatic. Eyes: Pupils equal round and reactive to light, extra-ocular motions intact. Lids and lashes normal. Conjunctiva and sclera are non-icteric and not injected. Cornea within normal limits. Periorbital areas with no swelling, redness, or edema. ENT: Nares patent. No nasal discharge, no septal abnormalities noted. External auditory canals are clear. Oropharynx with no redness, swelling, or masses, exudates, or evidence of obstruction, uvula midline. Mucous membranes moist. Neck: Trachea midline, no thyromegaly or masses palpated, and no cervical lymphadenopathy. Supple, full range of motion without nuchal rigidity, or vertebral point tenderness. No Meningismus. Chest/axilla: Normal chest wall appearance and motion. Nontender with no deformity. No lesions are appreciated. Cardiovascular: Regular rate and rhythm with a normal S1 and S2. No gallops, murmurs, or rubs. Normal PMI, no JVD. No pulse deficits. Respiratory: Lungs have equal breath sounds bilaterally, clear to auscultation and percussion. No rales, rhonchi or wheezes noted. No increased work of breathing, no retractions or nasal flaring. Abdomen/GI: Soft, non-tender, with normal bowel sounds. No distension or tympany. No guarding or rebound. No evidence of tenderness throughout. Back: No spinal tenderness. No costovertebral tenderness. Full range of motion. Skin: Warm, dry with normal turgor. Normal color with no rashes, no lesions, and no evidence of cellulitis. MS/ Extremity: Pulses equal, no cyanosis. Neurovascular intact. Full, normal range of motion. Neuro: Awake and alert, GCS 15, oriented to person, place, time, and situation. Cranial nerves II-XII grossly intact. Motor strength 5/5 in all extremities. Sensory grossly intact. Cerebellar exam normal. Normal gait. Psych: Awake, alert, with orientation to person, place and time. Behavior, mood, and affect are within normal limits. 16:12 ECG was reviewed by the Attending Physician. EKG demonstrates dual paced rhythm with adequate capture at a rate of 60 bpm. Vital Signs: 15:15 BP 140 / 82; Pulse 78; Resp 18; Temp 98; Pulse Ox 100% ; Weight 88.9 kg; Height 5 ft. 8 mb9 in. ; 16:00 BP 127 / 67; Pulse 60; Resp 16; Pulse Ox 100% on R/A; me1 16:45 BP 126 / 66; Pulse 60; Resp 18; Pulse Ox 100% on R/A; me1 17:00 BP 125 / 65; Pulse 60; Resp 18; Pulse Ox 100% on R/A; me1 18:00 BP 125 / 71; Pulse 60; Resp 16; Pulse Ox 100% on R/A; me1 19:00 BP 172 / 82; Pulse 64; Resp 16; Pulse Ox 100% on R/A; me1 20:00 BP 149 / 73; Pulse 60; Resp 16; Pulse Ox 100% on R/A; me1 21:00 BP 139 / 72; Pulse 60; Resp 18; Pulse Ox 100% on R/A; me1 21:30 BP 142 / 68; Pulse 60; Resp 16; Pulse Ox 100% on R/A; me1 15:15 Body Mass Index 29.80 (88.90 kg, 172.72 cm) mb9 MDM: 15:21 Patient medically screened. sp3 16:13 Data reviewed: vital signs, nurses notes, old medical records, lab test result(s), EKG, sp3 radiologic studies. ED course: 77-year-old male with 2 shocks delivered via pacemaker defibrillator and symptoms of now resolved near syncope and weakness. Patient was sent in by his PCP and cardiology team. Differential diagnosis includes arrhythmia, acute coronary syndrome electrolyte abnormality, among others. I am not highly suspicious for sepsis, shock, infection, aortic pathology, or any other critical process at this time. Workup will include EKG which is already been done, chest x-ray and laboratory values. We will also interrogate pacemaker through patient's hardware team. Probable admission and 23-hour obs at the very least.. 17:14 ED course: Discussed with [employer] interrogation team who states that patient had sp3 multiple runs of V. tach which is why the shocks were delivered. Greater than 10 episodes were sensed and 3 total shocks were delivered. Patient has had no further episodes here in the ED. Workup is fairly benign with troponin at 63 in the setting of creatinine 1.8. I discussed this with the inpatient team who are okay with having patient remain here. There is no Prestressed Concrete Laborer available tomorrow. Patient remains in a dual paced EKG pattern and he is pain-free and in no acute distress. Will admit under medicine service with cardiology consultation at this time.. 17:24 ED course: Now cardiology says that they cannot take care of the patient here and that sp3 we need to transfer patient. In the interest of patient care, we will transfer to [facility].. 03 15:22 Order name: Basic Metabolic Panel; Complete Time: 17:08 sp3 05/17 15:22 Order name: CBC with Diff; Complete Time: 17:05 sp3 05/17 15:22 Order name: LFT's; Complete Time: 17:08 sp3 05/17 15:22 Order name: Magnesium; Complete Time: 17:08 sp3 05/17 15:22 Order name: NT PRO-BNP; Complete Time: 17:08 sp3 05/17 15:22 Order name: PT-INR; Complete Time: 16:53 sp3 05/17 15:22 Order name: Troponin HS; Complete Time: 17:08 sp3 05/17 15:22 Order name: XRAY Chest (1 view); Complete Time: 17:20 sp3 05/17 15:22 Order name: EKG; Complete Time: 15:23 sp3 05/17 15:22 Order name: Cardiac monitoring; Complete Time: 16:08 sp3 05/17 15:22 Order name: EKG - Nurse/Tech; Complete Time: 15:32 sp3 05/17 15:22 Order name: IV Saline Lock; Complete Time: 16:56 sp3 05/17 15:22 Order name: Labs collected and sent; Complete Time: 16:56 sp3 05/17 15:22 Order name: O2 Per Protocol; Complete Time: 16:28 sp3 05/17 15:22 Order name: O2 Sat Monitoring; Complete Time: 16:28 sp3 Administered Medications: No medications were administered Disposition Summary: 05/18/23 17:38 Transfer Ordered Notes: Transfer Location: [facility] sp3 Reason: Higher level of care sp3 Condition: Stable(05/18/23 17:38) sp3 Problem: an acute exacerbation(05/18/23 17:38) sp3 Symptoms: have worsened(05/18/23 17:38) sp3 Accepting Physician: JONATHAN Fontenot [facility] team at receiving hosp(05/18/23 21:55) me1 Diagnosis - Ventricular tachycardia now resolved, palpitations sp3 Forms: - Medication Reconciliation Form sp3 - SBAR form sp3 Signatures: Dispatcher [employer] EDYuly Curry MD MD sp3 Gayle Noriega RN RN mb9 Cammy Gustafson RN RN me1 Corrections: (The following items were deleted from the chart) 17:38 17:15 Inpatient Admission sp3 sp3 17:38 17:15 Rolando Rivers sp3 sp3 17:38 17:15 Telemetry/MedSurg (Inpatient) sp3 sp3 17:38 17:15 Stable sp3 sp3 17:38 17:15 an acute exacerbation sp3 sp3 17:38 17:15 have worsened sp3 sp3 17:38 17:15 Standard sp3 sp3 17:38 17:15 sp3 sp3 17:38 17:15 Palpitations, V. tach sp3 sp3 21:55 17:38 [facility] cardiology team at receiving [facility] sp3 me1
--- NOTE | 2023-05-18 17:16 | RAD REPORT ---
EXAM DESCRIPTION: [place] Single View05/18/2023 3:59 pm CLINICAL HISTORY: Chest pain COMPARISON: 2022 FINDINGS: The lungs appear clear of acute infiltrate. The heart is mildly enlarged. Postsurgical changes involve the chest. Pacemaker leads in place IMPRESSION: No acute abnormalities displayed
[2023-05-18 22:30] VITALS: BP 142/68; TEMP 98; O2SAT 100
--- NOTE | 2023-05-22 14:31 | EKG ---
Test Date: 2023-05-18 Test Time: 15:18:38 Safety Clothing And Equipment Developer: MB MEASUREMENT RESULTS: Intervals: Rate: 60 MS: 152 QRSD: 206 QT: 574 QTc: 574 [place]: P: MS: 152 QRS: 135 T: -32 INTERPRETIVE STATEMENTS: AV dual-paced rhythm Abnormal ECG Compared to ECG 05/06/2022 19:19:12 Atrial-paced complex(es) or rhythm no longer present Myocardial infarct finding no longer present Electronically Signed On 05-22-23 14:17:48 CDT by Jay Lee
== END ==
LOC: ER 15:09
DX: R00.2 Palpitations (principal); Z95.810 Presence of automatic (implantable) cardiac defibrillator; Z79.01 Long term (current) use of anticoagulants; Z99.2 Dependence on renal dialysis; E11.9 Type 2 diabetes mellitus without complications; Z79.82 Long term (current) use of aspirin
CPT/HCPCS: 36415; 71045; 80048; 80076; 83735; 83880; 84484; 85025; 85610; 93005; 99285

== ENCOUNTER 2024-01-24 09:35 | Day surgery (SDC) | payer OTHER, BC ==
[2024-01-23 11:43] LABS: Absolute Basophils 0.1 K/uL (0-0.5); Absolute Eosinophils 0.1 K/uL (0-0.5); Absolute Lymphocytes (CBC) 0.6 K/uL (0.7-4.9); Absolute Monocytes 0.6 K/uL (0.1-1.3); Absolute Neutrophil 4.1 K/uL (1.8-8.0); Basophils % 2.4 % (0-1.3); Eosinophils % 2.3 % (0-4.4); Hematocrit 39.3 % (39.6-49.0); Hemoglobin 12.9 g/dL (13.6-17.9); Lymphocytes % 10.8 % (15.3-44.8); MCH 32.5 pg (27.0-35.0); MCHC 32.8 g/dL (32.0-36.0); MCV 99.1 fL (80-100); MPV 10.5 fL (7.6-11.3); Neutrophils % 74.5 % (41.7-73.7); Nucleated Red Blood Cells % 0.1 % (0-0); Platelets 243 thou/uL (152-406); RBC Red Blood Cell Count 3.97 M/uL (4.33-5.43); Red Cell Distribution Width 16.5 % (12.1-15.2)
[2024-01-23 11:48] LABS: PT Prothrombin Time 20.7 SECONDS (9.4-12.5); PTT, Activated Partial Thromb 42.2 SECONDS (24.3-36.9); Protime INR 1.88
[2024-01-23 11:56] LABS: Anion Gap 11.2 mEq/L (5.0-15.0); Phosphorus 4.3 mg/dL (2.5-4.9); Potassium 4.2 mEq/L (3.5-5.1)
[2024-01-24] MEDS ORDERED: NA CHLORIDE 0.9% 0 ML ONE (10:19)
[2024-01-24] MEDS ORDERED: HEPARIN 500 UNIT/5 ML SYR IV ONE (10:21)
[2024-01-24] MEDS: NA CHLORIDE 0.9% 500 ML ONE (10:30)
[2024-01-24 10:39] LABS: PT Prothrombin Time 17.1 SECONDS (9.4-12.5); PTT, Activated Partial Thromb 43.6 SECONDS (24.3-36.9); Protime INR 1.55
[2024-01-24 10:45] LABS: Anion Gap 10.1 mEq/L (5.0-15.0); Potassium 4.1 mEq/L (3.5-5.1)
[2024-01-24] MEDS ORDERED: NOREPINEPHRINE 4 MG/4 ML VIAL ONE (11:12)
[2024-01-24] MEDS ORDERED: NA CHLORIDE 0.9% 250 ML ONE (11:13)
[2024-01-24] MEDS ORDERED: NA CHLORIDE 0.9% 100 ML ONE (11:13)
--- NOTE | 2024-01-24 11:30 | EKG ---
Test Date: 2024-01-24 Test Time: 11:13:18 Dentistry Professor: MEASUREMENT RESULTS: Intervals: Rate: 60 OR: QRSD: 182 QT: 596 QTc: 596 [place]: P: OR: QRS: 139 T: -27 INTERPRETIVE STATEMENTS: AV sequential or dual chamber electronic pacemaker Compared to ECG 01/23/2024 11:35:14 Atrial-paced complex(es) or rhythm no longer present Myocardial infarct finding no longer present Electronically Signed On 01-24-24 11:30:22 TELEVISION REPAIR TEACHER by Reid Huerta
--- NOTE | 2024-01-24 11:34 | EKG ---
Test Date: 2024-01-23 Test Time: 11:35:14 Culinary Chef: JAISON MEASUREMENT RESULTS: Intervals: Rate: 62 SC: 126 QRSD: 32 QT: 472 QTc: 479 [place]: P: SC: 126 QRS: 130 T: -36 INTERPRETIVE STATEMENTS: Suspect arm lead reversal, interpretation assumes no reversal Electronic atrial pacemaker Possible Right ventricular hypertrophy Lateral infarct, possibly acute Anterior injury pattern ACUTE [place] Abnormal ECG Compared to ECG 01/23/2024 11:32:17 Indeterminate axis no longer present ST (T wave) deviation no longer present Myocardial infarct finding still present Electronically Signed On 01-24-24 11:31:53 VP SECURITY by Reid Huerta
--- NOTE | 2024-01-24 11:34 | EKG ---
Test Date: 2024-01-23 Test Time: 11:32:17 Certified Orthotist/Pedorthist: JAISON MEASUREMENT RESULTS: Intervals: Rate: 69 NC: 144 QRSD: 22 QT: 420 QTc: 450 [place]: P: NC: 144 QRS: 0 T: -35 INTERPRETIVE STATEMENTS: Electronic atrial pacemaker Indeterminate axis Pulmonary disease pattern ST elevation, consider anterolateral injury or acute infarct ACUTE [place] Abnormal ECG Compared to ECG 05/18/2023 15:18:38 Indeterminate axis now present ST (T wave) deviation now present Myocardial infarct finding now present Ventricular-paced complex(es) or rhythm no longer present AV dual-paced complex(es) or rhythm no longer present Electronically Signed On 01-24-24 11:32:01 MANAGER PROJECT by Reid Huerta
[2024-01-24] MEDS ORDERED: propofoL 200 MG/20 ML VIAL IV ONE (11:45)
[2024-01-24] MEDS ORDERED: FENTANYL CITR 100 MCG/2 ML ONE (11:46)
[2024-01-24] MEDS ORDERED: LIDOCAINE 1% MPF 5 ML VIAL ONE (11:46)
[2024-01-24] MEDS ORDERED: ETOMIDATE 20 MG/10 ML VIAL IV ONE (11:46)
[2024-01-24] MEDS ORDERED: ONDANSETRON 4 MG/2 ML VIAL ONE (11:46)
[2024-01-24] MEDS ORDERED: SUCCINYLCHOLINE 20 MG/ML (10 ML) IV ONE (11:51)
[2024-01-24] MEDS ORDERED: SUGAMMADEX SODIUM 200 MG/2 ML VIAL IV ONE (11:51)
[2024-01-24] MEDS ORDERED: ROCURONIUM 50 MG/5 ML VIAL IV ONE (12:09)
[2024-01-24] MEDS: CEFAZOLIN SODIUM 2 GM/VIAL ONE (13:04)
[2024-01-24] MEDS: NS 0.9% VIAL 10 ML ONE (13:35)
--- NOTE | 2024-01-24 13:52 | P.OP ---
Preoperative diagnosis: Peritoneal Dialysis Catheter Dysfunction Postoperative diagnosis: Peritoneal Dialysis Catheter Dysfunction Primary procedure: Laparoscopic Revision of Peritoneal Dialysis Catheter Secondary procedure: Laparoscopic Adhesiolysis Anesthesia: GETA + Local Estimated blood loss: <5cc Specimen: Fibrin Clot Findings: Fibrin Clot in PD Tubing, Adhesions / encasement of tube in small bowel Complications: None Transferred to: Recovery Room Condition: Good
[2024-01-24] MEDS: LIDOCAINE HCL/EPINEPHRINE 20 ML MDV ONE (14:07)
[2024-01-24] MEDS: HEPARIN 5000 UNIT/ML 1 ML VIAL ONE (14:08)
[2024-01-24 14:10] VITALS: O2SAT 100
--- NOTE | 2024-01-24 14:38 | OP ---
Date of Procedure: 01/24/2024 Surgeon: Mal Martinez MD, Preoperative Diagnosis: Peritoneal dialysis catheter dysfunction. Postoperative Diagnosis: Peritoneal dialysis catheter dysfunction. Procedures: 1.Laparoscopic revision of peritoneal dialysis catheter. 2.Laparoscopic adhesiolysis. Anesthesia: General endotracheal plus local 1% lidocaine with epinephrine. Estimated Blood Loss: 5 cc. Specimen: Fibrin clot from tubing. Findings: 1.Fibrin clot was noted in the peritoneal dialysis tubing causing obstruction. 2.Adhesions and encasement of the peritoneal dialysis catheter in the left lower quadrant around the loops of small bowel, which has encased and sealed the tube from access to the peritoneum. Complications: None. Disposition: The patient transferred to recovery room in good condition. Procedure In Detail: After informed consent was obtained, the patient was brought to the operating r oom, prepped and draped in the usual sterile fashion. After adequate anesthesia was achieved, I made a right upper quadrant incision down to subcutaneous tissues. 5 mm 0-degree optical trocar was intr oduced in the abdomen without incident or complication. Insufflation was obtained to 15 mmHg at this time. No injury to vital structures upon entering the abdomen. Two additional trocars were placed in the left lower quadrant. Both of these were similarly anesthetized, sharply incised. A 5 mm troc ar was placed under direct vision without incident or complication. At this point, I could visualize the peritoneal dialysis catheter in the left lower quadrant being completely encased within loops of small bowel. I performed a blunt dissection, freeing up the catheter at this point without any inju ry to the small bowel. There were thin alveolar type adhesions. After this was freed up, I pulled t he catheter out. However, I still could not flush air or saline. At this point, I pulled a 20 cc sy ringe, was able to pull back a large fibrin clot, which was sent off for pathologic examination from the tubing. At this point, the tubing became functional and pneumoperitoneum began to leak through t his area. I then infused sterile saline with multiple piston syringes, approximately 200 cc were afsaneh amilcar, 190 cc were returned. There was some minimal fluid residual in the area and the catheter remain ed in the pelvis. A securing stitch was noted on the anterior abdominal wall holding the catheter in the appropriate position. This was left in place and appeared to be Prolene. At this point, the ab domen was desufflated under direct vision without evidence of complication. Remainder of trocars wer e removed. All skin incisions were then copiously irrigated and closed with interrupted estelita. Th e patient tolerated the procedure without incident or complication and transferred to PACU in good co ndition. All counts were correct at the end of the case. PER/ROM Voice ID: [id number] Report ID: [id number]
[2024-01-24 15:11] VITALS: BP 129/57; TEMP 97
== END 2024-01-24 15:10 | disposition home or self-care (01) ==
LOC: OR 09:35
PROVIDERS: ATTEND Surgery
PROC: 0WHG43Z Insertion of Infusion Device into Peritoneal Cavity, Percutaneous Endoscopic Approach (ICD-10-PCS; principal; 2024-01-24 12:00)
DX: N18.6 End stage renal disease (principal); Z99.2 Dependence on renal dialysis
CPT/HCPCS: 93005 ×3; 85025; 80048 ×2; 36415 ×2; 84100; 85610 ×2; 88302; 85730 ×2; 49324; J1644 ×2; A4216; J2704; J2003; J3010; J1642; J2405; J7050; J7040

== ENCOUNTER 2024-02-06 12:15 | Inpatient (IN) | payer OTHER, BC ==
--- OUTSIDE RECORDS SUMMARY | 2024-02-06 12:17 | XMS REPORT | Clinical Summary ---
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 Gender Identity Not on file Sexual Orientation Not on file Plan of Treatment Health Maintenance Due Date Last Done Comments Pneumococcal Vaccine: 65+ Ye ars (2 of 2 - PCV) 10/17/2013 10/17/2012 COVID-19 Vaccine (2023-2 5 season) 2023 11/29/2021, 06/15/2021, 11/06/2020, Additional history exists Influenza Vaccine (#1) 2023 12/01/2020, 2018 Insurance MEDICARE PART A AND B [facility] [place] PPO POS MEDICARE PART A AND B [facility] PPO POS Care Teams Basin Cleaner Relationship Specialty Start Date End Date Ken Roman MD [address] [place] [address] PCP - External Primary Care Provider Family Practice 04/05/22 Sola Guzman MD [address] [place] [id number] [email or web address] PCP - General Head and Neck Surgery 04/05/22
[2024-02-06 12:55] LABS: Absolute Basophils 0.1 K/uL (0-0.5); Absolute Eosinophils 0.2 K/uL (0-0.5); Absolute Lymphocytes (CBC) 0.8 K/uL (0.7-4.9); Absolute Monocytes 0.8 K/uL (0.1-1.3); Absolute Neutrophil 4.9 K/uL (1.8-8.0); Basophils % 1.1 % (0-1.3); Eosinophils % 2.7 % (0-4.4); Hematocrit 36.8 % (39.6-49.0); Hemoglobin 12.1 g/dL (13.6-17.9); Lymphocytes % 11.1 % (15.3-44.8); MCV 97.2 fL (80-100); MPV 10.4 fL (7.6-11.3); Monocytes % 12.4 % (3.3-12.3); Neutrophils % 72.7 % (41.7-73.7); Nucleated Red Blood Cells % 0.1 % (0-0); Platelets 251 thou/uL (152-406); RBC Red Blood Cell Count 3.79 M/uL (4.33-5.43); Red Cell Distribution Width 14.9 % (12.1-15.2)
[2024-02-06 13:06] LABS: Anion Gap 8.9 mEq/L (5.0-15.0); Potassium 3.9 mEq/L (3.5-5.1)
--- NOTE | 2024-02-06 13:07 | RAD REPORT ---
EXAMINATION: ONE VIEW CHEST XR CLINICAL INDICATION: generalized weaknes TECHNIQUE: Frontal chest projection is submitted. Examination is limited by patient positioning and t echnique. COMPARISON: 05/18/2023 FINDINGS: The lungs are well inflated and clear. Heart is moderately enlarged. Multilead pacer device. Sternoto my wires present. Thoracic spine hardware. IMPRESSION: No acute intrathoracic abnormalities.
--- NOTE | 2024-02-06 13:37 | EDPHYS ---
Physician Documentation [facility] Name: Bc Hui Age: 78 yrs Sex: Male : 1945 Arrival Date: 02/06/2024 Time: 12:15 Bed 2 Private MD: ED Physician Mauri Escamilla HPI: 02/05 15:00 This 78 yrs old Male presents to ER via EMS with complaints of Fall Injury. ms3 15:00 Bc Hui, presents to the Emergency Department via [facility] for evaluation following a ms3 fall. The patient reports sliding down rather than experiencing a direct fall and denies hitting their head. There is no new pain reported as a result of the fall, but the patient does mention chronic back discomfort which they describe as normal for them. Patient states he was at Dr Martinez's office prior to coming to the ED for a peritoneal dialysis catheter is not functioning. The patient describes feeling weak, which contributed to their sliding down after exiting a car. . Historical: - PMHx: 12:25 Diabetes - NIDDM; High Cholesterol; P16 cancer (Stomach ulcer); PERITONEAL DIALYSIS; iw Stomach ulcer; - PSHx: 12:25 pacemaker (h ); iw - Immunization history:: Adult Immunizations unknown. - Infectious Disease History:: Denies. - Social history:: Smoking status: Patient denies any tobacco usage or history of. ROS: 15:00 Neck: Negative for injury, pain, and swelling, Cardiovascular: Negative for chest pain, ms3 and palpitations. Respiratory: Negative for shortness of breath, cough, wheezing, and pleuritic chest pain, Abdomen/GI: Negative for abdominal pain, nausea, vomiting, diarrhea, and constipation, 15:00 Skin: Negative for injury, rash, and discoloration, 15:00 Constitutional: Positive for Generalized weakness, Exam: 15:00 Constitutional: This is a well developed, well nourished patient who is awake, alert, ms3 and in no acute distress. Head/Face: Normocephalic, atraumatic. Chest/axilla: Normal chest wall appearance and motion. Nontender with no deformity. Cardiovascular: Regular rate and rhythm with a normal S1 and S2. No gallops, murmurs, or rubs. Normal PMI, no JVD. No pulse deficits. Respiratory: Lungs have equal breath sounds bilaterally, clear to auscultation and percussion. No rales, rhonchi or wheezes noted. No increased work of breathing, no retractions or nasal flaring. 15:00 Abdomen/GI: Inspection: abdomen appears normal, Bowel sounds: normal, Palpation: abdomen is soft and non-tender, Peritoneal dialysis catheter entering left abdomen. No surrounding erythema or drainage noted at site, 16:06 ECG was reviewed by the Attending Physician. ms3 Vital Signs: 12:26 BP 118 / 71; Pulse 62; Resp 16; Temp 98.2(O); Pulse Ox 99% ; Weight 81.65 kg; Height 5 db ft. 8 in. ; Pain 0/10; 12:45 BP 125 / 71; Pulse 59; Resp 16; Pulse Ox 100% on R/A; db 13:30 BP 117 / 58; Pulse 60; Resp 16; Pulse Ox 100% on R/A; db 14:00 BP 116 / 69; Pulse 61; Resp 16; Pulse Ox 100% on R/A; db 15:00 BP 121 / 65; Pulse 60; Resp 16; Pulse Ox 98% on R/A; db 16:00 BP 119 / 63; Pulse 62; Resp 16; Pulse Ox 100% on R/A; db 18:00 BP 121 / 67; Pulse 64; Resp 16; Pulse Ox 95% on R/A; db 12:26 Body Mass Index 27.37 (81.65 kg, 172.72 cm) db 12:26 Pain Scale: Adult db MDM: 12:17 Medical Screening Exam initiated ms3 15:00 Differential diagnosis: Electrolyte abnormality versus anemia versus peritoneal ms3 dialysis catheter malfunction. Data reviewed: vital signs, nurses notes, lab test result(s), radiologic studies, and as a result, I will admit patient. Consideration of Admission/Observation Patient was admitted/placed on observation. Management of patient was discussed with the following: Hospitalist: Dr Rivers. Independent interpretation of the following test(s) in the Emergency Department X-Ray: My interpretation is CXR image reviewed by me does not reveal PNA. Historians other than the Patient: EMS: [facility]. Counseling: I had a detailed discussion with the patient and/or guardian regarding the historical points, exam findings, and any diagnostic results supporting the discharge/admit diagnosis, lab results, radiology results, the need for further work-up and treatment in the hospital. ED course: Discussed necessity for admission with patient. Patient understands agrees with plan. All questions were answered.. 02/05 12:18 Order name: Basic Metabolic Panel; Complete Time: 13:23 ms3 02/05 12:18 Order name: CBC with Diff; Complete Time: 13:23 ms3 02/05 14:45 Order name: Urinalysis w/ reflexes EDMS 02/05 14:45 Order name: Basic Metabolic Panel EDMS 02/05 14:45 Order name: Basic Metabolic Panel EDMS 02/05 14:45 Order name: Basic Metabolic Panel EDMS 02/05 14:45 Order name: CBC with Automated Diff EDMS 02/05 14:45 Order name: CBC with Automated Diff EDMS 02/05 14:45 Order name: CBC with Automated Diff EDMS 02/05 14:45 Order name: Magnesium EDMS 02/05 14:45 Order name: Magnesium EDMS 02/05 14:45 Order name: Magnesium EDMS 02/05 14:45 Order name: Phosphorus EDMS 02/05 14:45 Order name: Phosphorus EDMS 02/05 14:45 Order name: Phosphorus EDMS 02/05 12:18 Order name: XRAY Chest (1 view); Complete Time: 13:23 ms3 02/05 14:45 Order name: CONS Physician Consult EDMS 02/05 14:45 Order name: CONS Physician Consult EDMS 02/05 12:18 Order name: Cardiac monitoring; Complete Time: 13:05 ms3 02/05 12:18 Order name: EKG - Nurse/Tech; Complete Time: 12:42 ms3 02/05 12:18 Order name: IV Saline Lock; Complete Time: 13:05 ms3 02/05 12:18 Order name: Labs collected and sent; Complete Time: 13:05 ms3 02/05 12:18 Order name: O2 Per Protocol; Complete Time: 13:05 ms3 02/05 12:18 Order name: O2 Sat Monitoring; Complete Time: 13:05 ms3 EC:06 Rate is 61 beats/min. Rhythm is regular. QRS interval is prolonged. Clinical ms3 impression: Paced. Interpreted by me. Reviewed by me. Administered Medications: No medications were administered Disposition Summary: 02/06/24 13:36 Hospitalization Ordered Notes: Hospitalization Status: Observation ms3 Condition: Stable ms3 Problem: new ms3 Symptoms: are unchanged ms3 Bed/Room Type: Standard ms3 Provider: Rolando Rivers(02/06/24 13:37) ms3 Location: Telemetry/MedSurg (observation)(02/06/24 17:52) bd Room Assignment: 217(02/06/24 17:52) bd Diagnosis - Weakness ms3 - Nonfunctioning PD catheter ms3 Forms: - Medication Reconciliation Form ms3 - SBAR form ms3 - Leadership Thank You Letter ms3 Signatures: Dispatcher [employer] EDMS Slivina Manning bd Jayna Adame, RN RN iw Mauri Escamilla DO DO ms3 Ana Rosado, RN RN db Corrections: (The following items were deleted from the chart) 12:19 12:19 BASIC METABOLIC PANEL+C.LAB.BRZ ordered. EDMS EDMS 12:19 12:19 CBC+H.LAB.BRZ ordered. EDMS EDMS 12:19 12:19 Chest Single View+RAD.RAD.BRZ ordered. EDMS EDMS 13:37 13:36 Tavia Padgett ms3 ms3 16:02 13:36 Telemetry/MedSurg (observation) ms3 bd 16:02 13:36 ms3 bd 17:52 16:02 [facility] ER HOLD bd bd 17:52 16:02 ERHOLD- bd bd
--- NOTE | 2024-02-06 13:37 | ER ---
Nurse's Notes [facility] Name: Bc Hui Age: 78 yrs Sex: Male : 1945 Arrival Date: 02/06/2024 Time: 12:15 Bed 2 Private MD: Diagnosis: Weakness;Nonfunctioning PD catheter Presentation: 02/05 12:23 Chief complaint: EMS states: pt was assisted to ground from wheelchair, was attempting iw to get into the vehicle , pt has skin tear to arm that was there prior to the fall, no other injury noted , pt has not complaints. Coronavirus screen: At this time, the client does not indicate any symptoms associated with coronavirus-19. Ebola Screen: No symptoms or risks identified at this time. Risk Assessment: Do you want to hurt yourself or someone else?. 12:23 Method Of Arrival: EMS: [facility] iw 12:23 Acuity: SAJAN 3 iw 12:26 Initial Sepsis Screen: Does the patient meet any 2 criteria? No. Patient's initial db sepsis screen is negative. Does the patient have a suspected source of infection? No. Patient's initial sepsis screen is negative. Onset of symptoms was February 06, 2024. Triage Assessment: 12:26 General: Appears in no apparent distress. comfortable, Behavior is calm, cooperative. db Pain: Denies pain. Neuro: Level of Consciousness is awake, alert, obeys commands, Oriented to person, place, time, situation, Speech is normal. Respiratory: Airway is patent Respiratory effort is even, unlabored, Respiratory pattern is regular, symmetrical. Historical: - PMHx: 12:25 Diabetes - NIDDM; High Cholesterol; P16 cancer (Stomach ulcer); PERITONEAL DIALYSIS; iw Stomach ulcer; - PSHx: 12:25 pacemaker (h ); iw - Immunization history:: Adult Immunizations unknown. - Infectious Disease History:: Denies. - Social history:: Smoking status: Patient denies any tobacco usage or history of. Screenin:57 [facility] ED Fall Risk Assessment (Adult) History of falling in the last 3 months, db including since admission Yes- single mechanical fall (1 pt) Confusion or Disorientation No (0 pts) Intoxicated or Sedated No (0 pts) Impaired Gait No (0 pts) Mobility Assist Device Used No (0 pt) Altered Elimination No (0 pt) Score/Fall Risk Level 0 - 2 = Low Risk Oriented to surroundings, Maintained a safe environment, Educated pt \T\ family on fall prevention, incl call for assistance when getting out of bed. Abuse screen: Denies threats or abuse. Denies injuries from another. Nutritional screening: No deficits noted. Tuberculosis screening: No symptoms or risk factors identified. Assessment: 12:26 Reassessment: Patient appears in no apparent distress at this time. Patient and/or db family updated on plan of care and expected duration. Pain level reassessed. Patient is alert, oriented x 3, equal unlabored respirations, skin warm/dry/pink. General: Appears in no apparent distress. comfortable, Behavior is calm, cooperative. 14:00 Reassessment: Patient appears in no apparent distress at this time. Patient and/or db family updated on plan of care and expected duration. Pain level reassessed. Patient is alert, oriented x 3, equal unlabored respirations, skin warm/dry/pink. PATIENT PROVIDED URINAL. 16:19 Reassessment: Patient appears in no apparent distress at this time. Patient and/or db family updated on plan of care and expected duration. Pain level reassessed. Patient is alert, oriented x 3, equal unlabored respirations, skin warm/dry/pink. PHYSICIAN AT BEDSIDE. General: Appears in no apparent distress. comfortable, Behavior is. Neuro: Level of Consciousness is awake, alert, obeys commands, Oriented to person, place, time, situation. Cardiovascular: Dialysis shunt: in the abdomen. Respiratory: Airway is patent Respiratory effort is even, unlabored, Respiratory pattern is regular, symmetrical. Vital Signs: 12:26 BP 118 / 71; Pulse 62; Resp 16; Temp 98.2(O); Pulse Ox 99% ; Weight 81.65 kg; Height 5 db ft. 8 in. ; Pain 0/10; 12:45 BP 125 / 71; Pulse 59; Resp 16; Pulse Ox 100% on R/A; db 13:30 BP 117 / 58; Pulse 60; Resp 16; Pulse Ox 100% on R/A; db 14:00 BP 116 / 69; Pulse 61; Resp 16; Pulse Ox 100% on R/A; db 15:00 BP 121 / 65; Pulse 60; Resp 16; Pulse Ox 98% on R/A; db 16:00 BP 119 / 63; Pulse 62; Resp 16; Pulse Ox 100% on R/A; db 18:00 BP 121 / 67; Pulse 64; Resp 16; Pulse Ox 95% on R/A; db 12:26 Body Mass Index 27.37 (81.65 kg, 172.72 cm) db 12:26 Pain Scale: Adult db ED Course: 12:17 Patient arrived in ED. ms3 12:17 Mauri Escamilla DO is Attending Physician. ms3 12:24 Triage completed. iw 12:26 Ana Rosado, RN is Primary Nurse. db 12:26 Arm band placed on Patient placed in an exam room. db 12:39 EKG done, by ED staff, reviewed by Mauri Escamilla DO. sa1 12:44 Initial lab(s) drawn, by hi, sent to lab. Inserted saline lock: 22 gauge in right db wrist, using aseptic technique. Blood collected. Flushed with 10 mL NS. 12:54 XRAY Chest (1 view) In Process Unspecified. EDMS 13:36 Tavia Padgett MD is Hospitalizing Provider. ms3 13:36 Rolando Rivers is Hospitalizing Provider. ms3 19:41 No provider procedures requiring assistance completed. Patient admitted, IV remains in aa10 place. 19:43 Patient has correct armband on for positive identification. Fall risk band placed. aa10 Placed in gown. Bed in low position. Call light in reach. Side rails up X2. Valuables Left with patient. Provided Education on: need for admit. Administered Medications: No medications were administered Medication: 16:20 VIS not applicable for this client. db Outcome: 13:36 Decision to Hospitalize by Provider. ms3 19:41 Admitted to Med/surg accompanied by tech, via stretcher, room 217, with chart, aa10 19:41 Condition: stable 19:41 Instructed on the need for admit, 19:49 Patient left the ED. aa10 Signatures: Dispatcher [employer] EDMS Jayna Adame, RN UNA Mauri Escamilla DO DO ms3 Ana Rosado, RN RN db Sultan July sa1 Andrea Vazquez RN RN aa10 Corrections: (The following items were deleted from the chart) 18:29 12:44 Inserted saline lock: 22 gauge db db 18:29 12:44 Initial lab(s) drawn, by me, sent to lab. db db
--- NOTE | 2024-02-06 14:23 | P.HP ---
Certification for Inpatient Patient admitted to: Inpatient With expected LOS: >2 Midnights Patient will require the following post-hospital care: None Practitioner: I am a practitioner with admitting privileges, knowledge of patient current condition, hospital course, and medical plan of care. Services: Services provided to patient in accordance with Admission requirements found in Title 42 Section 412.3 of the Code of Federal Regulations Patient History Date of Service: 02/06/24 Reason for admission: Peritoneal dialysis catheter replacement History of Present Illness: Bc Hui is a 78-year-old male with past medical history of diabetes mellitusNIDDM, hypercholesterolemia, cancer, ESRD (peritoneal dialysis), stomach ulcer, CAD with stent/pacemaker in place who presents to the ED via Dr. Martinez office for a peritoneal dialysis catheter replacement. Reportedly, dialysis catheter is nonfunctioning, he was only able to infuse 2 of 5 antib iotic doses. He reports having his catheter fixed in December. Laboratory evaluation significant for sodium 132, BUN/creatinine 41/1.63, GFR 43. Electrolytes stable. Chest x-ray reports "no acute intrathoracic abnormalities." Bc will be admitted to hospitalist service for further evaluation and treatment, Dr. Martinez and Dr. Asher have been consulted. Allergies No Known Allergies Allergy (Verified 01/23/24 10:24) Home Medications: Pantoprazole [Protonix Tab*] 1 tab PO DAILY 11/18/19 Pregabalin 1 tab PO DAILY 11/18/19 Magnesium Oxide [Magnesium] 400 mg PO BID 01/26/20 Mexiletine HCl 200 mg PO BID 01/26/20 Potassium Chloride 10 meq PO BEDTIME 01/26/20 Amiodarone HCl [Cordarone Tab] 200 mg PO BID 01/23/24 Amiodarone HCl [Cordarone*] 200 mg PO BID 01/23/24 Apixaban [Eliquis] 2.5 mg PO BID 01/23/24 Ascorbic Acid [Vitamin C] 250 mg PO BID 01/23/24 Cetirizine HCl [Zyrtec] 10 mg PO DAILY 01/23/24 Cholecalciferol (Vitamin D3) [Vitamin D 5,000 Iu Cap] 5,000 unit PO DAILY 01/23/24 Clopidogrel Bisulfate [Plavix] 75 mg PO DAILY 01/23/24 Cyanocobalamin (Vitamin B-12) [Vitamin B-12] 2,500 mcg SL DAILY 01/23/24 Docusate [Colace Cap] 100 mg PO BIDP PRN 01/23/24 Fenofibric Acid (Choline) [Trilipix] 135 mg PO DAILY 01/23/24 Midodrine HCl 10 mg PO BID 01/23/24 Nitroglycerin 0.3 mg SL DIRECTED PRN 01/23/24 [place]-3 Fatty Acids [[place]-3] 1,000 mg PO BID 01/23/24 Omeprazole [Prilosec] 40 mg PO DAILY 01/23/24 Propranolol [Inderal] 10 mg PO QID 01/23/24 Rosuvastatin [Crestor] 10 mg PO DAILY 01/23/24 Tamsulosin HCl 0.4 mg PO DAILY 01/23/24 - Past Medical/Surgical History Diabetic: Yes -: Diabetes mellitus type 2 -: HTN -: CAD s/p CABG -: CHF s/p pacemaker/debrillator -: Anemia of chronic disease -: History of DVT -: CKD 3 -: Recent GI bleed due to the gastric ulcers -: CABGx3 -: Coronary stent -: Back surgery -: Right shoulder surgery -: right ankle surgery -: titanium rods in both femur - Family History Father -: Heart disease - Social History Smoking Status: Never smoker Alcohol use: No CD- Drugs: No Caffeine use: Yes Review of Systems Unremarkable Physical Examination - Physical Exam General: Alert, In no apparent distress, Oriented x3 HEENT: Atraumatic, Normocephalic, PERRLA Neck: Supple, 2+ carotid pulse no bruit Respiratory: Clear to auscultation bilaterally, Normal air movement Cardiovascular: No edema, Normal pulses, Regular rate/rhythm, Normal S1 S2 Capillary refill: <2 Seconds Gastrointestinal: Normal bowel sounds, Soft and benign Musculoskeletal: No clubbing Integumentary: No breakdown Neurological: Normal speech, Normal tone - Studies Laboratory Data (last 24 hrs) 02/06/24 02/06/24 12:44 12:44 WBC 6.80 Hgb 12.1 L Hct 36.8 L Plt Count 251 Sodium 132 L Potassium 3.9 BUN 41 H Creatinine 1.63 H Glucose 103 Assessment and Plan - Plan Assessment and plan CKD 3 peritoneal dialysis catheter replacement Anemia of chronic disease -BUN/creatinine 41/1.63, GFR 43 -Dr. Kovacev sent him to the ED for a replacement procedure in the AM -Consult Dr. Asher -NPO at midnight for surgery in the AM -Vancomyin daily, Pharmacy to dose Atrial fibrillation CAD with stent CHF s/p pacemaker/defibrillator -continue home medications -Hold Eliquis for procedure in the AM -Continuous telemetry Diabetes mellitus -serum glucose 103 -Accu-Chek with signs of insulin Stomach ulcer hypercholesterolemia DVT -continue home medications DVT ppx SCD, hold Eliquis Full code LOS 2 days Discharge Plan: Home Plan to discharge in: 24 Hours - Advance Directives Does patient have a Living Will: No Does patient have a Durable POA for Healthcare: No
[2024-02-06] MEDS ORDERED: ACETAMINOPHEN 325 MG TABLET PO PRN (14:39)
[2024-02-06 18:25] VITALS: BMI 27.3
[2024-02-06] MEDS: VANCOMYCIN 1 GM in NA CHLORIDE 0.9% 250 ML IVPB ONE (18:42)
[2024-02-06] MEDS ORDERED: HYDRALAZINE HCL 20 MG/ML VIAL IV PRN (18:57)
[2024-02-06] MEDS: VANCOMYCIN 1.5 GM in NA CHLORIDE 0.9% 500 ML IVPB SCH (20:00)
--- NOTE | 2024-02-06 20:45 | P.CNS ---
Date of Consult: 02/06/24 Reason for Consult: ESRD Requesting Physician: fermin rivers Chief Complaint: Peritoneal dialysis catheter replacement History of Present Illness: Bc Hui is a 78-year-old male with past medical history of diabetes mellitusNIDDM, hypercholesterolemia, cancer, ESRD (peritoneal dialysis), stomach ulcer, CAD with stent/pacemaker in place who presents to the ED via Dr. Martinez office for a peritoneal dialysis catheter replacement. Reportedly, dialysis catheter is nonfunctioning, he was only able to infuse 2 of 5 antibiotic doses. He reports having his catheter fixed in December. Laboratory evaluation significant for sodium 132, BUN/creatinine 41/1.63, GFR 43. Electrolytes stable. Chest x-ray reports "no acute intrathoracic abnormalities." Bc will be admitted to hospitalist service for further evaluation and treatm ent, Dr. Martinez and Dr. Asher have been consulted. [id number] 15:00 This 78 yrs old Male presents to ER via EMS with complaints of Fall Injury. ms3 15:00 Bc Hui, presents to the Emergency Department via [facility] for evaluation following a ms3 fall. The patient reports sliding down rather than experiencing a direct fall and denies hitting their head. There is no new pain reported as a result of the fall, but the patient does mention chronic back discomfort which they describe as normal for them. Patient states he was at Dr Martinez's office prior to coming to the ED for a peritoneal dialysis catheter is not functioning. The patient describes feeling weak, which contributed to their sliding down after exiting a car. Allergies No Known Allergies Allergy (Verified 01/23/24 10:24) Home medications list reviewed: Yes Home Medications: Pantoprazole [Protonix Tab*] 1 tab PO DAILY 11/18/19 Pregabalin 2 tab PO DAILY 11/18/19 Magnesium Oxide [Magnesium] 400 mg PO BID 01/26/20 Mexiletine HCl 200 mg PO BID 01/26/20 Potassium Chloride 10 meq PO BEDTIME 01/26/20 Amiodarone HCl [Cordarone Tab] 200 mg PO BID 01/23/24 Apixaban [Eliquis] 2.5 mg PO BID 01/23/24 Ascorbic Acid [Vitamin C] 250 mg PO BID 01/23/24 Cetirizine HCl [Zyrtec] 10 mg PO DIRECTED PRN 01/23/24 Cholecalciferol (Vitamin D3) [Vitamin D 5,000 Iu Cap] 5,000 unit PO DAILY 01/23/24 Clopidogrel Bisulfate [Plavix] 75 mg PO DAILY 01/23/24 Cyanocobalamin (Vitamin B-12) [Vitamin B-12] 2,500 mcg SL DAILY 01/23/24 Docusate [Colace Cap] 100 mg PO BIDP PRN 01/23/24 Fenofibric Acid (Choline) [Trilipix] 135 mg PO DAILY 01/23/24 Midodrine HCl 10 mg PO BID 01/23/24 Nitroglycerin 0.3 mg SL DIRECTED PRN 01/23/24 Bimble-3 Fatty Acids [Bimble-3] 2,000 mg PO BID 01/23/24 Propranolol [Inderal] 10 mg PO QID 01/23/24 Rosuvastatin [Crestor] 10 mg PO DAILY 01/23/24 Tamsulosin HCl 0.4 mg PO DAILY 01/23/24 - Past Medical/Surgical History Diabetic: Yes -: DM II -: Chronic Hypotension -: CAD s/p CABG -: CMP/ CHF s/p pacemaker/debrillator -: Anemia of chronic disease -: History of DVT -: CKD (Dr. Flood/ Lb) -: Recent GI bleed due to the gastric ulcers -: CABGx3 -: Coronary stent -: Back surgery -: Right shoulder surgery -: right ankle surgery -: titanium rods in both femur - Family History Father Medical History: Heart disease - Social History Alcohol use: No CD- Drugs: No Caffeine use: Yes Review of Systems 10-point ROS is otherwise unremarkable General: Weakness Physical Examination Temp Pulse Resp BP Pulse Ox 98.2 F 64 16 121/67 100 02/06/24 19:53 02/06/24 20:03 02/06/24 20:03 02/06/24 20:03 02/06/24 16:00 General: In no apparent distress, Oriented x3, Cooperative HEENT: Atraumatic Neck: Supple Respiratory: Diminished Cardiovascular: No edema, Normal S1 S2 Gastrointestinal: Non-distended, No guarding Musculoskeletal: No clubbing, No contractures Integumentary: No rashes, No cyanosis Neurological: Normal speech Laboratory Data (last 24 hrs) 02/06/24 02/06/24 12:44 12:44 WBC 6.80 Hgb 12.1 L Hct 36.8 L Plt Count 251 Sodium 132 L Potassium 3.9 BUN 41 H Creatinine 1.63 H Glucose 103 Imagings Data: [id number] EXAMINATION: ONE VIEW CHEST XR CLINICAL INDICATION: generalized weaknes TECHNIQUE: Frontal chest projection is submitted. Examination is limited by patient positioning and technique. COMPARISON: 05/18/2023 FINDINGS: The lungs are well inflated and clear. Heart is moderately enlarged. Multilead pacer device. Sternotomy wires present. Thoracic spine hardware. IMPRESSION: No acute intrathoracic abnormalities. Conclusions/Impression: Advanced CKD on PD (PD was initially started on the patient for chronic hypervolemia) -Hold PD at this time -Initiate HD prn Peritonitis with Staphylococcus capitis -Vancomycin as ordered -Pharmacy consult for dosing -Dr. Martinez to remove the PD catheter Hyponatremia -Caution with excess fluid intake Chronic Hypotension -Midodrine prn Systolic CHF, chronic CMP -Diuretic prn DM II with CKD -RISS prn Case discussed with Dr. Martinez and Dr. Rivers Thank you kindly for the consultation
[2024-02-06] MEDS: NA CHLORIDE 0.9% 500 ML ONE (21:27)
[2024-02-06] MEDS: VANCOMYCIN 500 MG/VIAL ONE (21:27)
[2024-02-06] MEDS: VANCOMYCIN 1 GM/VIAL ONE (21:27)
[2024-02-07 00:19] LABS: Specific Gravity 1.009 (1.005-1.030); Urine Bilirubin NEGATIVE (Negative); Urine Blood Negative (Negative); Urine Clarity Clear (Clear); Urine Color Light-Yellow (Yellow); Urine Glucose NEGATIVE (Negative); Urine Ketones NEGATIVE (Negative); Urine Microscopic Reflex YN NO UMIC; Urine Nitrite NEGATIVE (Negative); Urine Protein NEGATIVE (Negative); Urine Urobilinogen Normal (Normal)
[2024-02-07 04:50] LABS: Absolute Basophils 0.1 K/uL (0-0.5); Absolute Eosinophils 0.2 K/uL (0-0.5); Absolute Lymphocytes (CBC) 0.5 K/uL (0.7-4.9); Absolute Monocytes 0.8 K/uL (0.1-1.3); Absolute Neutrophil 4.4 K/uL (1.8-8.0); Basophils % 1.1 % (0-1.3); Eosinophils % 2.9 % (0-4.4); Hematocrit 35.7 % (39.6-49.0); Hemoglobin 11.7 g/dL (13.6-17.9); Lymphocytes % 8.4 % (15.3-44.8); MCH 31.7 pg (27.0-35.0); MCHC 32.7 g/dL (32.0-36.0); MCV 96.9 fL (80-100); MPV 10.9 fL (7.6-11.3); Monocytes % 12.7 % (3.3-12.3); Neutrophils % 74.9 % (41.7-73.7); Platelets 226 thou/uL (152-406); RBC Red Blood Cell Count 3.68 M/uL (4.33-5.43)
[2024-02-07 05:05] LABS: Anion Gap 7.8 mEq/L (5.0-15.0); Magnesium 1.4 mg/dL (1.6-2.4); Potassium 3.8 mEq/L (3.5-5.1); Uric Acid 4.7 mg/dL (3.5-7.2)
[2024-02-07] MEDS ORDERED: DOCUSATE NA 100 MG CAP PO PRN (07:19)
[2024-02-07] MEDS: MAGNESIUM OXIDE 400 MG TAB PO SCH (08:00)
[2024-02-07] MEDS: CYANOCOBALAMIN 1,000 MCG TAB PO SCH (09:00)
[2024-02-07] MEDS: FENOFIBRIC ACID 135 MG PO SCH (09:00)
[2024-02-07] MEDS: TAMSULOSIN 0.4 MG SR CAP PO SCH (09:00)
[2024-02-07] MEDS: ASCORBIC ACID 500 MG TABLET PO SCH (09:00)
[2024-02-07] MEDS: MEXILETINE HCL 200 MG PO SCH (09:00)
[2024-02-07] MEDS: VITAMIN D 5,000 UNIT CAP PO SCH (09:00)
[2024-02-07] MEDS: PANTOPRAZOLE 40MG TABLET PO SCH (09:00)
[2024-02-07] MEDS: ROSUVASTATIN 10 MG TAB PO SCH (09:00)
[2024-02-07] MEDS: PREGABALIN 150 MG CAP PO SCH (09:00)
[2024-02-07] MEDS: MIDODRINE HCL 5 MG TABLET PO SCH (09:00)
[2024-02-07] MEDS: AMIODARONE HCL 200 MG TAB PO SCH (09:00)
[2024-02-07] MEDS: NA CHLORIDE 0.9% 500 ML ONE (12:35)
[2024-02-07] MEDS ORDERED: MIDAZOLAM HCL 2 MG/2 ML INJ ONE (13:00)
[2024-02-07] MEDS ORDERED: propofoL 200 MG/20 ML VIAL IV ONE (13:36)
[2024-02-07] MEDS ORDERED: LIDOCAINE 2% MPF 5 ML VIAL ONE (13:36)
[2024-02-07] MEDS ORDERED: ONDANSETRON 4 MG/2 ML VIAL ONE (13:36)
[2024-02-07] MEDS ORDERED: FENTANYL CITR 100 MCG/2 ML ONE (13:36)
[2024-02-07] MEDS ORDERED: ROCURONIUM 50 MG/5 ML VIAL IV ONE (13:36)
[2024-02-07] MEDS: SUGAMMADEX SODIUM 200 MG/2 ML VIAL IV ONE (13:41)
[2024-02-07] MEDS: CEFAZOLIN SODIUM 2 GM/VIAL ONE (14:27)
[2024-02-07] MEDS ORDERED: EPHEDRINE SULF 50 MG/ML VIAL ONE (14:27)
[2024-02-07] MEDS ORDERED: dexAMETHasone 4 MG/ML VIAL ONE (14:32)
[2024-02-07] MEDS: LIDOCAINE HCL/EPINEPHRINE 20 ML MDV ONE (14:40)
[2024-02-07] MEDS ORDERED: NS 0.9% VIAL 20 ML ONE (14:46)
--- NOTE | 2024-02-07 15:17 | P.OP ---
Preoperative diagnosis: Infected Peritoneal Dialysis Catheter Postoperative diagnosis: Infected Peritoneal Dialysis Catheter Primary procedure: Laparoscopic Removal of Peritoneal Dialysis Catheter Anesthesia: GETA + Local Estimated blood loss: <10 Specimen: Catheter tip for culture Findings: Multiple cuffs, clotted catheter, adhesions in pelvis Complications: None Transferred to: Recovery Room Condition: Good
[2024-02-07] MEDS: HYDROMORPHONE HCL 1 MG/ML INJ ONE (15:42)
[2024-02-07 15:45] VITALS: O2SAT 98
[2024-02-07] MEDS ORDERED: HYDROCODONE/APAP 5/325 MG TAB PO PRN (15:49)
--- NOTE | 2024-02-07 16:42 | P.PN ---
Date of Service: 02/07/24 Subjective Awake, awaiting for surgery Dr. Asher consulted and will hold dialysis for now with continued management outpatient ROS 10 point ROS as noted above, otherwise negative Physical Exam General: Alert and Oriented x3, NAD HEENT: Atraumatic, Normocephalic, PERRLA Neck: Supple, 2+ carotid pulse no bruit Respiratory: Clear BBS, Normal air movement, on RA Cardiovascular: No edema, Normal pulses, RRR, Normal S1 S2 Capillary refill: <2 Seconds Gastrointestinal: Normal bowel sounds, Soft and benign on palpation Musculoskeletal: No clubbing Integumentary: No breakdown Neurological: Normal speech, Normal tone Vitals Reviewed Problem list CKD 3 S/P Laparoscopic Removal of Peritoneal Dialysis Catheter Anemia of chronic disease Atrial fibrillation CAD with stent CHF s/p pacemaker/defibrillator Diabetes mellitus Stomach ulcer hypercholesterolemia DVT Assessment and Plan CKD 3 S/P Laparoscopic Removal of Peritoneal Dialysis Catheter Anemia of chronic disease Hypomagnasemia -BUN/creatinine 34/1.53, GFR 47, Mag 1.4 -Dr. Martinez performed PD catheter removal today 02/06 -Dr. Asher following -Vancomyin daily, Pharmacy to dose -Plan to hold dialysis for now and will follow up with Dr. Asher for continued management -Plan for doxycycline at discharge Atrial fibrillation CAD with stent CHF s/p pacemaker/defibrillator -continue home medications -Eliquis restarted -Continuous telemetry Diabetes mellitus -serum glucose 86 -Accu-Chek with signs of insulin Stomach ulcer hypercholesterolemia DVT -continue home medications DVT ppx Eliquis Full code LOS 2 days Discharge Plan: Home Plan to discharge in: 24 Hours
--- NOTE | 2024-02-07 18:32 | OP ---
Date of Procedure: 02/07/2024 Surgeon: Mal Martinez MD, Preoperative Diagnosis: Infected peritoneal dialysis catheter. Postoperative Diagnosis: Infected peritoneal dialysis catheter. Procedure Performed: Laparoscopic removal of peritoneal dialysis catheter. Anesthesia: General endotracheal plus local 1% lidocaine. Estimated Blood Loss: 10 cc. Specimen: Catheter tip for cultures. Findings: Multiple cuffs were noted on a catheter, which was piecemealed together with metal Interli nks and sutures having a total of 4 cuffs present. Adhesions in pelvis were also noted with clot in the catheter as described. Complications: None. Disposition: Patient transferred to recovery room in good condition. Procedure In Detail: After informed consent was obtained, patient was brought into the operating jewels m, prepped and draped in the usual sterile fashion after adequate anesthesia was achieved. I placed a 5-mm 0-degree optical trocar in the abdomen in the right upper quadrant through previous incision w ithout incident or complication. Insufflation was obtained to 15 mmHg, at this time. There was no i njury to vital structures upon entry into the abdomen. Catheter was noted to be some deep in the pel vis in the appropriate anatomic position. However, it was encompassed in scar tissue, but catheter w as visible to allow for drainage. However, clot was present within the majority of the distal cathet er. As such, a second trocar was placed at the previous trocar site in the left lower abdomen. This was used to grasp the catheter and bring it into the field safely without injuring the bowel. At th is point, the abdomen remained insufflated. At this point, I then proceeded to make counter incision s at the insertion site as well as through multiple areas of palpable cuffs on the patient's abdomina l wall where previous cuffs were placed. A metal Interlink was found with 2 cuffs proximal and 2 cuf fs distal on this peritoneal dialysis catheter for a total of 4 cuffs rather than normal anatomic 2, which were placed. At this point, the catheter was removed. The catheter tip was sent for culture. All skin incisions were then copiously irrigated. While pneumoperitoneum was maintained, I closed t he insertion site using a #1 Vicryl in a running fashion at the rectus sheath. The area was copiousl y irrigated once again with good seal. At this point, the abdomen was desufflated under direct visio n without incident or complication. All skin edges were then copiously irrigated and closed with int errupted estelita, at this point, and a sterile dressing placed over top. The patient tolerated the p rocedure without incident or complication and transferred to PACU in good condition. All counts were correct at the end of the case. PER/ROM Voice ID: [id number] Report ID: [id number]
--- NOTE | 2024-02-07 20:41 | P.PN ---
Date of Service: 02/07/24 Vital Signs Temp Pulse Resp BP Pulse Ox 98.0 F 60 18 124/52 L 99 02/07/24 15:51 02/07/24 15:51 02/07/24 15:51 02/07/24 15:51 02/07/24 12:00 Medications Acetaminophen (Acetaminophen 325 Mg Tablet) 650 mg PO Q4HP PRN PRN Reason: Temp > 100 F or mild pain Hydrocodone Bitart/Acetaminophen (Hydrocodone/Apap 5/325 Mg Tab) 1 tab PO Q4H PRN PRN Reason: Pain scale 5-7 (Moderate) Amiodarone HCl (Amiodarone Hcl 200 Mg Tab) 200 mg PO BID [facility] Last Admin: 02/07/24 09:00 Dose: Not Given Apixaban (Apixaban 2.5 Mg Tablet) 2.5 mg PO BID [facility] Ascorbic Acid (Ascorbic Acid 500 Mg Tablet) 250 mg PO DAILY [facility] Last Admin: 02/07/24 09:00 Dose: Not Given Cholecalciferol (Vitamin D 5,000 Unit Cap) 5,000 unit PO DAILY [facility] Last Admin: 02/07/24 09:00 Dose: Not Given Clopidogrel Bisulfate (Clopidogrel 75 Mg Tablet) 75 mg PO DAILY [facility] Cyanocobalamin (Cyanocobalamin 1,000 Mcg Tab) 1,000 mcg PO DAILY [facility] Last Admin: 02/07/24 09:00 Dose: Not Given Docusate Sodium (Docusate Na 100 Mg Cap) 100 mg PO BIDP PRN PRN Reason: CONSTIPATION Doxycycline Monohydrate (Doxycycline 100 Mg Cap) 100 mg PO BID [facility] Home Med (Fenofibric Acid (Choline) [Trilipix]) 135 mg PO DAILY [facility] Last Admin: 02/07/24 09:00 Dose: Not Given Home Med (Pt Med Mexiletine Hcl 200 Mg Cap) 1 ea PO BID [facility] Last Admin: 02/07/24 09:00 Dose: Not Given Hydralazine HCl (Hydralazine Hcl 20 Mg/Ml Vial) 10 mg IV Q4HP PRN PRN Reason: Goal to achieve SBP in comment Magnesium Oxide (Magnesium Oxide 400 Mg Tab) 400 mg PO BIDWM [facility] Last Admin: 02/07/24 16:26 Dose: Not Given Midodrine (Midodrine Hcl 5 Mg Tablet) 10 mg PO BID [facility] Last Admin: 02/07/24 09:00 Dose: Not Given Pantoprazole Sodium (Pantoprazole 40mg Tablet) 40 mg PO DAILY [facility]; Protocol Last Admin: 02/07/24 09:00 Dose: Not Given Pregabalin (Pregabalin 150 Mg Cap) 150 mg PO DAILY [facility] Last Admin: 02/07/24 09:00 Dose: Not Given Rosuvastatin Calcium (Rosuvastatin 10 Mg Tab) 10 mg PO DAILY [facility] Last Admin: 02/07/24 09:00 Dose: Not Given Tamsulosin HCl (Tamsulosin 0.4 Mg Sr Cap) 0.4 mg PO DAILY [facility] Last Admin: 02/07/24 09:00 Dose: Not Given Assessment/ Plan: Nephrology No dyspnea No chest pain No acute events overnight Waiting for surgery Vitals, medications, blood work and imaging reviewed in the chart General: In no apparent distress, Oriented x3, Cooperative HEENT: Atraumatic Neck: Supple Respiratory: Diminished Cardiovascular: No edema, Normal S1 S2 Gastrointestinal: Non-distended, No guarding Musculoskeletal: No clubbing, No contractures Integumentary: No rashes, No cyanosis Neurological: Normal speech Laboratory Data (last 24 hrs) 02/06/24 02/06/24 12:44 12:44 WBC 6.80 Hgb 12.1 L Hct 36.8 L Plt Count 251 Sodium 132 L Potassium 3.9 BUN 41 H Creatinine 1.63 H Glucose 103 Imagings Data: [id number] EXAMINATION: ONE VIEW CHEST XR CLINICAL INDICATION: generalized weaknes TECHNIQUE: Frontal chest projection is submitted. Examination is limited by patient positioning and technique. COMPARISON: 05/18/2023 FINDINGS: The lungs are well inflated and clear. Heart is moderately enlarged. Multilead pacer device. Sternotomy wires present. Thoracic spine hardware. IMPRESSION: No acute intrathoracic abnormalities. Conclusions/Impression: Advanced CKD on PD (PD was initially started on the patient for chronic hypervolemia) -Hold PD at this time -Initiate HD prn Peritonitis with Staphylococcus capitis -Vancomycin as ordered; pharmacy dosing -Agree with Doxycycline -Dr. Martinez to remove the PD catheter today Hyponatremia -Caution with excess fluid intake Hypomagnesemia -Continue MagOx Chronic Hypotension -Midodrine prn Systolic CHF, chronic CMP -Diuretic prn DM II with CKD -RISS prn BPH with LUTS -Continue tamsulosin Case discussed with Dr. Rivers
[2024-02-07] MEDS: APIXABAN 2.5 MG TABLET PO SCH (20:58)
[2024-02-07] MEDS: DOXYCYCLINE 100 MG CAP PO SCH (20:58)
[2024-02-08 06:06] LABS: Absolute Lymphocytes (CBC) 0.5 K/uL (0.7-4.9); Absolute Monocytes 0.5 K/uL (0.1-1.3); Basophils % 0.2 % (0-1.3); Hematocrit 33.4 % (39.6-49.0); Hemoglobin 11.2 g/dL (13.6-17.9); Lymphocytes % 4.2 % (15.3-44.8); MCH 32.4 pg (27.0-35.0); MCHC 33.7 g/dL (32.0-36.0); MCV 96.2 fL (80-100); MPV 10.6 fL (7.6-11.3); Monocytes % 4.5 % (3.3-12.3); Neutrophils % 91.1 % (41.7-73.7); Platelets 248 thou/uL (152-406); RBC Red Blood Cell Count 3.47 M/uL (4.33-5.43); Red Cell Distribution Width 14.9 % (12.1-15.2)
[2024-02-08 06:22] LABS: Magnesium 1.4 mg/dL (1.6-2.4); Phosphorus 3.9 mg/dL (2.5-4.9)
[2024-02-08 07:57] LABS: Blood Morphology Comment NOT SEEN (NOT SEEN); Platelet Estimate ADEQ; White Blood Cell Scan OK (OK)
[2024-02-08] MEDS: Magnesium Sulfate 2gm IVPB 2 G/50 ML BAG IV ONE (09:45)
[2024-02-08] MEDS: CLOPIDOGREL 75 MG TABLET PO SCH (09:46)
[2024-02-08 12:48] VITALS: BP 116/88; TEMP 97.6
--- NOTE | 2024-02-08 14:30 | P.DS ---
Admission Date: 02/08/24 Discharge Date: 02/08/24 Reason for Admission: Peritoneal dialysis catheter replacement Brief History of Present Illness: Bc Hui is a 78-year-old male with past medical history of diabetes mellitusNIDDM, hypercholesterolemia, cancer, ESRD (peritoneal dialysis), stomach ulcer, CAD with stent/pacemaker in place who presents to the ED via Dr. Martinez office for a peritoneal dialysis catheter replacement. Reportedly, dialysis catheter is nonfunctioning, he was only able to infuse 2 of 5 antibiotic doses. He reports having his catheter fixed in December. Laboratory evaluation significant for sodium 132, BUN/creatinine 41/1.63, GFR 43. Electrolytes stable. Chest x-ray reports "no acute intrathoracic abnormalities." Bc will be admitted to hospitalist service for further evaluation and treatment, Dr. Martinez and Dr. Asher have been consulted. Hospital Course: Mr. Hui was seen by Dr. Martinez for PD catheter removal. He has not needed dialysis in a couple of months to maintain electrolytes per self-report and is urinating several times daily. He was seen by Dr. Asher and will assess need for HD. Mr. Hui was noted to have peritonitis with Staphylococcus capitis. He received vancomycin initially through his PD times several doses prior to removal and then IV. He was deemed stable for discharge with doxycycline and tramadol with planned follow-up with Dr. Asher. Electrolytes this a.m. within normal limits. Creatinine 1.36 with a GFR of 54. Trocar areas from PD removal with clean bandages that are dry and intact. Mr. Hui is feeling well with very little pain and no complaints. <Yoli Agudelo - Last Filed: 02/08/24 14:31> Admission Date: 02/08/24 Discharge Date: 02/11/24 Hospital Course: Discharge diagnosis CKD 3 S/P Laparoscopic Removal of Peritoneal Dialysis Catheter Anemia of chronic disease Atrial fibrillation CAD with stent CHF s/p pacemaker/defibrillator Diabetes mellitus Stomach ulcer hypercholesterolemia DVT <fermin hadley - Last Filed: 02/11/24 17:04> Disposition: NM HOME/HOME HEALTH CARE Discharge Condition: GOOD Vital Signs/Physical Exam: Temp Pulse Resp BP Pulse Ox 97.6 F 64 16 116/88 99 02/08/24 08:00 02/08/24 08:00 02/08/24 08:00 02/08/24 08:00 02/08/24 08:00 General: Alert, In no apparent distress, Oriented x3 HEENT: Atraumatic, Normocephalic Neck: Supple Respiratory: Normal air movement Cardiovascular: Normal pulses, Regular rate/rhythm, Normal S1 S2 Capillary refill: <2 Seconds Gastrointestinal: Normal bowel sounds, Other (Trocar site bandages dry and intact) Musculoskeletal: No clubbing, No swelling Integumentary: No rashes Neurological: Normal speech, Normal tone, Normal affect Lymphatics: No axilla or inguinal lymphadenopathy External genitalia: Deferred Rectal: Deferred Laboratory Data at Discharge: WBC 11.00 thou/uL (4.3-10.9) H 02/08/24 05:22 Hgb 11.2 g/dL (13.6-17.9) L 02/08/24 05:22 Hct 33.4 % (39.6-49.0) L 02/08/24 05:22 Plt Count 248 thou/uL (152-406) 02/08/24 05:22 Sodium 135 mEq/L (136-145) L 02/08/24 05:22 Potassium 4.0 mEq/L (3.5-5.1) 02/08/24 05:22 BUN 34 mg/dL (7-18) H 02/08/24 05:22 Creatinine 1.36 mg/dL (0.70-1.30) H 02/08/24 05:22 Glucose 92 mg/dL (74-106) 02/08/24 05:22 Uric Acid 4.7 mg/dL (3.5-7.2) 02/07/24 04:25 Phosphorus 3.9 mg/dL (2.5-4.9) 02/08/24 05:22 Magnesium 1.4 mg/dL (1.6-2.4) L 02/08/24 05:22 <Agudelo,Yoli Wilmer - Last Filed: 02/08/24 14:31> Vital Signs/Physical Exam: Temp Pulse Resp BP Pulse Ox 97.6 F 64 16 116/88 99 02/08/24 08:00 02/08/24 08:00 02/08/24 08:00 02/08/24 08:00 02/08/24 08:00 Laboratory Data at Discharge: WBC 11.00 thou/uL (4.3-10.9) H 02/08/24 05:22 Hgb 11.2 g/dL (13.6-17.9) L 02/08/24 05:22 Hct 33.4 % (39.6-49.0) L 02/08/24 05:22 Plt Count 248 thou/uL (152-406) 02/08/24 05:22 Sodium 135 mEq/L (136-145) L 02/08/24 05:22 Potassium 4.0 mEq/L (3.5-5.1) 02/08/24 05:22 BUN 34 mg/dL (7-18) H 02/08/24 05:22 Creatinine 1.36 mg/dL (0.70-1.30) H 02/08/24 05:22 Glucose 92 mg/dL (74-106) 02/08/24 05:22 Uric Acid 4.7 mg/dL (3.5-7.2) 02/07/24 04:25 Phosphorus 3.9 mg/dL (2.5-4.9) 02/08/24 05:22 Magnesium 1.4 mg/dL (1.6-2.4) L 02/08/24 05:22 <fermin hadley - Last Filed: 02/11/24 17:04> Diet: ADA Activity: Ad tamara <Yoli Agudelo - Last Filed: 02/08/24 14:31> <fermin hadley - Last Filed: 02/11/24 17:04> Home Medications: Pantoprazole [Protonix Tab*] 1 tab PO DAILY 11/18/19 Pregabalin 2 tab PO DAILY 11/18/19 Magnesium Oxide [Magnesium] 400 mg PO BID 01/26/20 Mexiletine HCl 200 mg PO BID 01/26/20 Amiodarone HCl [Cordarone*] 200 mg PO BID 01/23/24 Apixaban [Eliquis *] 2.5 mg PO BID 01/23/24 Ascorbic Acid [Vitamin C] 250 mg PO BID 01/23/24 Cetirizine HCl [Zyrtec] 10 mg PO DIRECTED PRN 01/23/24 Cholecalciferol (Vitamin D3) [Vitamin D 5,000 IU Cap*] 5,000 unit PO DAILY 01/23/24 Clopidogrel Bisulfate [Plavix*] 75 mg PO DAILY 01/23/24 Cyanocobalamin (Vitamin B-12) [Vitamin B-12] 2,500 mcg SL DAILY 01/23/24 Docusate [Colace Cap*] 100 mg PO BIDP PRN 01/23/24 Fenofibric Acid (Choline) [Trilipix] 135 mg PO DAILY 01/23/24 Midodrine HCl 10 mg PO BID 01/23/24 Nitroglycerin 0.3 mg SL DIRECTED PRN 01/23/24 [place]-3 Fatty Acids [[place]-3] 2,000 mg PO BID 01/23/24 Rosuvastatin [Crestor*] 10 mg PO DAILY 01/23/24 Tamsulosin HCl 0.4 mg PO DAILY 01/23/24 Doxycycline Hyclate [Vibramycin] 100 mg PO BID #20 cap 02/08/24 traMADol HCL [Ultram*] 50 mg PO Q6H PRN #20 tab 02/08/24 New Medications: traMADol HCL [Ultram*] 50 mg PO Q6H PRN #20 tab PRN Reason: Pain Doxycycline Hyclate [Vibramycin] 100 mg PO BID #20 cap Physician Discharge Instructions: Mr. Hui was seen by Dr. Martinez for PD catheter removal. He has not needed dialysis in a couple of months to maintain electrolytes per self-report and is urinating several times daily. He was seen by Dr. Asher and will assess need for HD. Mr. Hui was noted to have peritonitis with Staphylococcus capitis. He received vancomycin initially through his PD times several doses prior to removal and then IV. He was deemed stable for discharge with doxycycline and tramadol with planned follow-up with Dr. Asher. Electrolytes this a.m. within normal limits. Creatinine 1.36 with a GFR of 54. Trocar areas from PD removal with clean bandages that are dry and intact. Mr. Hui is feeling well with very little pain and no complaints. Wound Care: Dry dressing with gauze. Followup: Gentry Asher DO [ACTIVE - CAN ADMIT] - 1 Week Mal Martinez MD [ACTIVE - CAN ADMIT] - 1-2 Weeks Ken Roman MD [Primary Care Provider] - 1-2 Weeks
[2024-02-08] MEDS ORDERED: VANCOMYCIN 1 GM in NA CHLORIDE 0.9% 250 ML IV SCH (21:00)
--- NOTE | 2024-02-08 21:53 | P.PN ---
Date of Service: 02/08/24 Vital Signs Temp Pulse Resp BP Pulse Ox 97.6 F 64 16 116/88 99 02/08/24 08:00 02/08/24 08:00 02/08/24 08:00 02/08/24 08:00 02/08/24 08:00 Lab Results (last 24 hrs) 02/08/24 05:22: Sodium 135 L, Potassium 4.0, Chloride 102, Carbon Dioxide 26, Anion Gap 11.0, BUN 34 H, Creatinine 1.36 H, Est GFR (CKD-EPI) 54 L, Glucose 92, Calcium 8.4 L, Phosphorus 3.9, Magnesium 1.4 L 02/08/24 05:22: WBC 11.00 H, RBC 3.47 L, Hgb 11.2 L, Hct 33.4 L, MCV 96.2, MCH 32.4, MCHC 33.7, RDW 14.9, Plt Count 248, MPV 10.6, Neutrophils % 91.1 H, Lymphocytes % 4.2 L, Monocytes % 4.5, Eosinophils % 0.0, Basophils % 0.2, Absolute Neutrophils 10.0 H, Absolute Lymphocytes 0.5 L, Absolute Monocytes 0.5, Absolute Eosinophils 0.0, Absolute Basophils 0.0, Platelet Estimate Adeq, Morphology Comment Not seen, Smear Scan Ok Microbiology Results 02/07/24 15:00 Catheter Tip - Abdomen Culture & Sensitivity - Preliminary No growth. Assessment/ Plan: Nephrology No dyspnea No chest pain Fatigue No acute events overnight Vitals, medications, blood work and imaging reviewed in the chart General: In no apparent distress, Oriented x3, Cooperative HEENT: Atraumatic Neck: Supple Respiratory: Diminished Cardiovascular: No edema, Normal S1 S2 Gastrointestinal: Non-distended, No guarding Musculoskeletal: No clubbing, No contractures Integumentary: No rashes, No cyanosis Neurological: Normal speech Laboratory Data (last 24 hrs) 02/06/24 02/06/24 12:44 12:44 WBC 6.80 Hgb 12.1 L Hct 36.8 L Plt Count 251 Sodium 132 L Potassium 3.9 BUN 41 H Creatinine 1.63 H Glucose 103 Imagings Data: [id number] EXAMINATION: ONE VIEW CHEST XR CLINICAL INDICATION: generalized weaknes TECHNIQUE: Frontal chest projection is submitted. Examination is limited by patient positioning and technique. COMPARISON: 05/18/2023 FINDINGS: The lungs are well inflated and clear. Heart is moderately enlarged. Multilead pacer device. Sternotomy wires present. Thoracic spine hardware. IMPRESSION: No acute intrathoracic abnormalities. Conclusions/Impression: Advanced CKD on PD (PD was initially started on the patient for chronic hypervolemia) -Hold PD at this time -Initiate HD prn Peritonitis with Staphylococcus capitis -Vancomycin as ordered; pharmacy dosing -Agree with Doxycycline Hyponatremia -Caution with excess fluid intake Hypomagnesemia -Continue MagOx Chronic Hypotension -Midodrine prn Systolic CHF, chronic CMP -Diuretic prn DM II with CKD -RISS prn BPH with LUTS -Continue tamsulosin Case discussed with Dr. Rivers
--- NOTE | 2024-02-09 15:57 | EKG ---
Test Date: 2024-02-06 Test Time: 12:35:15 Player Piano Technician: MEASUREMENT RESULTS: Intervals: Rate: 61 RI: 148 QRSD: 196 QT: 594 QTc: 597 Zahl: P: RI: 148 QRS: -21 T: 4 INTERPRETIVE STATEMENTS: AV dual-paced rhythm Abnormal ECG Compared to ECG 01/24/2024 11:13:18 No significant changes Electronically Signed On 02-09-24 15:51:45 PULP AND PAPER TESTER by Reid Huerta
== END 2024-02-08 12:00 | disposition home health service (06) | DRG 907 ==
LOC: ER 12:15 → ERHOLD 14:28 → 2ND 19:14 → OBSVTOIN 02-08 10:42
PROVIDERS: ADMIT Internal Medicine; ATTEND Internal Medicine
PROC: 0WPG43Z Removal of Infusion Device from Peritoneal Cavity, Percutaneous Endoscopic Approach (ICD-10-PCS; principal; 2024-02-07 16:15)
DX: T85.611A Breakdown (mechanical) of intraperitoneal dialysis catheter, initial encounter (principal); K65.9 Peritonitis, unspecified; E87.1 Hypo-osmolality and hyponatremia; I50.22 Chronic systolic (congestive) heart failure; I13.0 Hypertensive heart and chronic kidney disease with heart failure and stage 1 through stage 4 chronic kidney disease, or unspecified chronic kidney disease; N18.30 Chronic kidney disease, stage 3 unspecified; E11.22 Type 2 diabetes mellitus with diabetic chronic kidney disease; D63.1 Anemia in chronic kidney disease; I48.91 Unspecified atrial fibrillation; K25.9 Gastric ulcer, unspecified as acute or chronic, without hemorrhage or perforation; N40.1 Benign prostatic hyperplasia with lower urinary tract symptoms; I95.89 Other hypotension; E78.00 Pure hypercholesterolemia, unspecified; K66.0 Peritoneal adhesions (postprocedural) (postinfection); I25.10 Atherosclerotic heart disease of native coronary artery without angina pectoris; B95.7 Other staphylococcus as the cause of diseases classified elsewhere; Z99.2 Dependence on renal dialysis; Z95.1 Presence of aortocoronary bypass graft; Z95.5 Presence of coronary angioplasty implant and graft; Z79.02 Long term (current) use of antithrombotics/antiplatelets; Z79.899 Other long term (current) drug therapy; Z95.810 Presence of automatic (implantable) cardiac defibrillator; Z86.718 Personal history of other venous thrombosis and embolism; Z85.028 Personal history of other malignant neoplasm of stomach; W18.39XA Other fall on same level, initial encounter; Y93.9 Activity, unspecified; Y92.9 Unspecified place or not applicable; Y99.9 Unspecified external cause status; Y84.8 Other medical procedures as the cause of abnormal reaction of the patient, or of later complication, without mention of misadventure at the time of the procedure
CPT/HCPCS: 36415; 71045; 80048; 81003; 83735; 83880; 84100; 84550; 85025; 87070; 88300; 93005; 99285; A4216; G0378; J1100; J1171; J2003; J2250; J2405; J2704; J3010; J3475; J7040

== ENCOUNTER 2024-04-17 06:03 | Inpatient (IN) | payer OTHER, BC ==
--- OUTSIDE RECORDS SUMMARY | 2024-04-17 06:06 | XMS REPORT | Clinical Summary ---
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 Gender Identity Not on file Sexual Orientation Not on file Plan of Treatment Health Maintenance Due Date Last Done Comments Pneumococcal Vaccine: 50+ Ye ars (2 of 2 - PCV) 10/17/2013 10/17/2012 COVID-19 Vaccine (2023-2 5 season) 2023 11/29/2021, 06/15/2021, 11/06/2020, Additional history exists Influenza Vaccine (#1) 2023 12/01/2020, 2018 Insurance MEDICARE PART A AND B [facility] [place] PPO POS MEDICARE PART A AND B [facility] PPO POS Care Teams General Repair Mechanic Relationship Specialty Start Date End Date Ken Roman MD [address] [place] [id number] PCP - External Primary Care Provider Family Practice 04/05/22 Sola Guzman MD [address] [place] [id number] [email or web address] PCP - General Head and Neck Surgery 04/05/22
[2024-04-17 06:53] LABS: Absolute Basophils 0.1 K/uL (0-0.5); Absolute Eosinophils 0.1 K/uL (0-0.5); Absolute Lymphocytes (CBC) 0.6 K/uL (0.7-4.9); Absolute Monocytes 1.1 K/uL (0.1-1.3); Absolute Neutrophil 10.4 K/uL (1.8-8.0); Basophils % 1.2 % (0-1.3); Hematocrit 25.6 % (39.6-49.0); Hemoglobin 8.6 g/dL (13.6-17.9); MCH 33.1 pg (27.0-35.0); MCHC 33.6 g/dL (32.0-36.0); MCV 98.6 fL (80-100); MPV 10.7 fL (7.6-11.3); Neutrophils % 83.8 % (41.7-73.7); Nucleated Red Blood Cells % 0.1 % (0-0); Platelets 245 thou/uL (152-406); RBC Red Blood Cell Count 2.59 M/uL (4.33-5.43); Red Cell Distribution Width 15.9 % (12.1-15.2)
--- NOTE | 2024-04-17 06:53 | RAD REPORT ---
EXAM: Chest Single View HISTORY: CHEST PAIN COMPARISON: 02/06/2024 FINDINGS: LUNGS/PLEURA: Obscured left hemidiaphragm which may be due to underpenetration. Increased prominence of the central pulmonary vasculature. MEDIASTINUM: The mediastinal silhouette is within normal limits. CARDIAC: Stable size and configuration. UPPER ABDOMEN: No significant abnormality. BONES: Sternotomy. No acute abnormality. Remote right-sided rib fractures. LINES/TUBES/OTHER: Pacemaker/ICD. IMPRESSION: Pulmonary vascular congestion versus edema. Partially obscured left lung base which may be from under penetration versus airspace disease/pleural fluid. Chest CT is pending at time of dictation.
[2024-04-17 06:56] LABS: PT Prothrombin Time 21.8 SECONDS (9.4-12.5); Protime INR 2.09
[2024-04-17 07:08] LABS: Albumin 2.4 g/dL (3.4-5.0); Albumin/Globulin Ratio 0.8 (1.1-1.8); Anion Gap 8.4 mEq/L (5.0-15.0); Bilirubin Direct 0.3 mg/dL (0-0.2); Bilirubin Indirect, Calculated 0.2 mg/dL (0.2-0.8); Bilirubin Total 0.5 mg/dL (0.2-1.0); Globulin 3.2 g/dL (2.3-3.5); Magnesium 2.5 mg/dL (1.6-2.4); Potassium 4.4 mEq/L (3.5-5.1); Protein, Total 5.6 g/dL (6.4-8.2); Troponin High Sensitivity 33.3 pg/mL (<58.9)
--- NOTE | 2024-04-17 07:19 | RAD REPORT ---
EXAM: CT CHEST, ABDOMEN AND PELVIS WITHOUT CONTRAST CLINICAL INDICATION: Male, 78 years old CHEST PAIN TECHNIQUE: CT chest, abdomen and pelvis was performed, without IV contrast, as per department protoco l. Axial, sagittal and coronal reconstructions were obtained. One or more of the following dose reduction techniques were used: Automated exposure control, adjustment of the mA and/or kV according to the patient size, and/or iterative reconstruction. Unless otherwise specified, incidental findings do not require dedicated imaging follow-up. [id number]. COMPARISON: Same-day chest x-ray FINDINGS: The lack of intravenous contrast limits the sensitivity of this exam for evaluation of solid visceral organs, vascular structures, and retroperitoneum. Chest: LOWER NECK: Visualized thyroid gland and soft tissues are normal. LUNGS AND AIRWAYS: Patchy groundglass opacities throughout the lungs with dependent lower lobe consol idation.Motion artifact limits evaluation for pulmonary nodule detection. There is a more discrete type solid nodule in the right upper lobe measuring 14 mm. This is on image 31, series 201. PLEURA: Small bilateral pleural effusions. MEDIASTINUM AND LYMPH NODES: No mediastinal mass or fluid collection. Normal size mediastinal, hilar, and axillary lymph nodes. THORACIC AORTA: No thoracic aortic aneurysm. PULMONARY ARTERIES: Enlarged main pulmonary arteries could indicate pulmonary artery hypertension. HEART: Mild cardiomegaly. Multivessel coronary artery diseaseNo significant pericardial effusion. Pac emaker/AICD. Abdomen/Pelvis UPPER GI: Gastric wall appears diffusely thickened. LIVER: Increased density of the liver which could be from amiodarone or iron deposition. GALLBLADDER/BILE DUCTS: Cholelithiasis versus sludge without CT evidence of acute cholecystitis.? PANCREAS: Atrophy, but otherwise unremarkable. SPLEEN: Unremarkable. ADRENALS: No adrenal masses. KIDNEYS AND URETERS: No hydronephrosis.No suspicious renal mass identified. Limited without IV contra st.No renal or ureteral calculi. ABDOMINAL AORTA AND OTHER VESSELS: Moderate atherosclerotic changes without aortic aneurysm. PERITONEUM: No abnormal free fluid. No free air. LYMPH NODES: No pathologic lymphadenopathy. ABDOMINAL WALL: Body wall edema. SMALL BOWEL/COLON: Small bowel has normal course and caliber. No colonic wall thickening or pericolon ic inflammatory changes.Normal appendix. URINARY BLADDER: Underdistended but grossly unremarkable. REPRODUCTIVE ORGANS: No pathologic process. MUSCULOSKELETAL: Bilateral hip ORIF. Multiple lytic lesions in the axial skeleton. Remote left-sided rib fractures. Sternotomy. Fusion hardware in the upper thoracic spine. T11 fracture involving the anterior wall and inferior endplate is favored chronic. Diffuse idiopathic skeletal hyperostosis. ADDITIONAL FINDINGS: None. IMPRESSION: 1. Multifocal airspace disease with small bilateral pleural effusions which may reflect combination o f edema and pneumonia. Recommend 3 month follow-up chest CT to reevaluate the right lung nodule. 2. No acute findings within the abdomen or pelvis. 3. T11 fracture involving the anterior wall and inferior endplate likely due to background of diffuse idiopathic skeletal hyperostosis. Suspect a subacute or remote fracture however correlate with patient's symptoms.
[2024-04-17] MEDS ORDERED: ONDANSETRON 4 MG/2 ML VIAL ONE (07:35)
[2024-04-17] MEDS ORDERED: MORPHINE 4 MG/ML SYR ONE (07:36)
--- NOTE | 2024-04-17 07:42 | EDPHYS ---
Physician Documentation [facility] Name: Bc Hui Age: 78 yrs Sex: Male : 1945 Arrival Date: 04/17/2024 Time: 06:03 Bed 7 Private MD: ED Physician Ziyad Mccartney HPI: 04/17 06:13 This 78 yrs old Male presents to ER via Unassigned with complaints of chest sp4 pain . 06:39 78-year-old male presents with complaint of acute onset chest pain. . sp4 07:35 This is a patient with past medical history of CKD stage III, . sp4 07:42 Very pleasant male history of CKD, prior peritoneal dialysis, anemia of chronic sp4 disease, atrial fibrillation, CAD, pacemaker defibrillator, diabetes type 2, peptic ulcers, hypercholesterolemia, DVT. Patient presents with acute onset chest pain and shortness of breath.. 07:43 Medication list includes Protonix, pregabalin, magnesium, amiodarone, apixaban twice a sp4 day, further medications include clopidogrel, docusate, fenofibrate, midodrine, nitroglycerin, rosuvastatin, tamsulosin, doxycycline, tramadol.. Historical: - Allergies: 06:22 No Known Allergies; lg3 - PMHx: 06:22 Diabetes - NIDDM; High Cholesterol; P16 cancer (Stomach ulcer); PERITONEAL DIALYSIS; lg3 Stomach ulcer; HTN (Stomach ulcer); - PSHx: 06:22 pacemaker; defib (pacemaker); triple bipass (pacemaker); cardiac stents (pacemaker); lg3 - Immunization history:: Adult Immunizations up to date. - Infectious Disease History:: Denies. - Social history:: Smoking status: Patient denies any tobacco usage or history of. Patient/guardian denies using alcohol, street drugs. - Family history:: not pertinent. ROS: 07:42 Constitutional: Negative for fever, chills, and weight loss, positive chest pain sp4 positive shortness of breath. 07:42 All other systems are negative, Exam: 07:43 Constitutional: Patient is frail elderly male generalized pallor physical sp4 deconditioning and bilateral lower extremity edema. Head/Face: Normocephalic, atraumatic. Eyes: Pupils equal round and reactive to light, extra-ocular motions intact. Lids and lashes normal. Conjunctiva and sclera are not injected. Cornea within normal limits. Periorbital areas with no swelling, redness, or edema. ENT: Nares patent. No nasal discharge, no septal abnormalities noted. Tympanic membranes are normal and external auditory canals are clear. Oropharynx with no redness, swelling, or masses, exudates, or evidence of obstruction, uvula midline. Mucous membranes moist. Neck: Trachea midline, no thyromegaly or masses palpated, and no cervical lymphadenopathy. Supple, full range of motion without nuchal rigidity, or vertebral point tenderness. Chest/axilla: Normal chest wall appearance and motion. Nontender with no deformity. No lesions are appreciated. Cardiovascular: Regular rate and rhythm with a normal S1 and S2. No gallops, murmurs, or rubs. Normal PMI, no JVD. No pulse deficits. Respiratory: Lungs have equal breath sounds bilaterally, clear to auscultation and percussion. No rales, rhonchi or wheezes noted. No increased work of breathing, no retractions or nasal flaring. Abdomen/GI: Soft, with normal bowel sounds. No distension or tympany. No guarding or rebound. No evidence of tenderness throughout. Back: No spinal tenderness. No costovertebral tenderness. Skin: Warm, dry with normal turgor. Normal color with no rashes, no lesions, and no evidence of cellulitis. MS/ Extremity: Pulses equal, no cyanosis. Neurovascular intact. Full, normal range of motion. Bilateral lower extremity edema with pitting Neuro: Awake and alert, GCS 15, oriented to person, place, time, and situation. Cranial nerves II-XII grossly intact. Motor strength 5/5 in all extremities. Sensory grossly intact. Psych: Awake, alert, with orientation to person, place and time. Behavior, mood, and affect are within normal limits 07:43 ECG was reviewed by the Attending Physician. EKG at 0 610 Vital Signs: 06:19 BP 130 / 62; Pulse 69; Resp 15 S; Temp 98.8(O); Pulse Ox 98% on 4 lpm NC; Weight 81.65 lg3 kg (R); Height 5 ft. 8 in. (R); Pain 0/10; 07:35 BP 134 / 60; Pulse 62; Resp 18; Pulse Ox 97% on 2 lpm NC; db 09:00 BP 125 / 56; Pulse 60; Resp 18; Pulse Ox 100% on R/A; db 10:30 BP 108 / 97; Pulse 60; Resp 18; Pulse Ox 100% on 2 lpm NC; db 11:30 BP 116 / 52; Pulse 60; Resp 16; Pulse Ox 99% on R/A; db 12:00 BP 129 / 43; Pulse 60; Resp 18; Pulse Ox 99% on R/A; db 06:19 Body Mass Index 27.37 (81.65 kg, 172.72 cm) lg3 06:19 Pain Scale: Adult lg3 [place] Coma Score: 07:43 Eye Response: spontaneous(4). Motor Response: obeys commands(6). Verbal Response: sp4 oriented(5). Total: 15. MDM: 06:10 Differential diagnosis: acute pericarditis, anxiety, coronary artery disease chest wall sp4 pain, congestive heart failure cholecystitis, esophagitis, gastritis. HEART Score: History: Highly Suspicious (2), ECG: Non specific repolarization disturbance / LBTB / PM (1), Age: > or = 65 years (2), Risk Factors: > or = 3 Risk factors for atherosclerotic disease (2), Troponin: < or = 1 x Normal Limit (0), Total Score = 7. Data reviewed: vital signs, nurses notes, lab test result(s), EKG, radiologic studies, CT scan, plain films. Consideration of Admission/Observation Patient was admitted/placed on observation. Escalation of care including admission/observation considered. ED course: Patient has signs of congestive heart failure. Warrants admission for diuresis.. 06:14 Medical Screening Exam initiated sp4 07:23 ED course: CT - IMPRESSION: 1. Multifocal airspace disease with small bilateral pleural sp4 effusions which may reflect combination of edema and pneumonia. Recommend 3 month follow-up chest CT to reevaluate the right lung nodule. 2. No acute findings within the abdomen or pelvis. 3. T11 fracture involving the anterior wall and inferior endplate likely due to background of diffuse idiopathic skeletal hyperostosis. Suspect a subacute or remote fracture however correlate with patient's symptoms. . ED course: EXAM: Chest Single View HISTORY: CHEST PAIN COMPARISON: 02/06/2024 FINDINGS: LUNGS/PLEURA: Obscured left hemidiaphragm which may be due to underpenetration. Increased prominence of the central pulmonary vasculature. MEDIASTINUM: The mediastinal silhouette is within normal limits. CARDIAC: Stable size and configuration. UPPER ABDOMEN: No significant abnormality. BONES: Sternotomy. No acute abnormality. Remote right-sided rib fractures. LINES/TUBES/OTHER: Pacemaker/ICD. IMPRESSION: Pulmonary vascular congestion versus edema. Partially obscured left lung base which may be from under penetration versus airspace disease/pleural fluid. Chest CT is pending at time of dictation. . 04/17 06:14 Order name: Basic Metabolic Panel; Complete Time: 07:22 sp4 04/17 06:14 Order name: CBC with Diff; Complete Time: 07:22 sp4 04/17 06:14 Order name: LFT's; Complete Time: 07:22 sp4 04/17 06:14 Order name: Magnesium; Complete Time: 07:22 sp4 04/17 06:14 Order name: NT PRO-BNP; Complete Time: 07:22 sp4 04/17 06:14 Order name: PT-INR; Complete Time: 07:22 sp4 04/17 06:14 Order name: Troponin HS; Complete Time: 07:22 sp4 04/17 06:36 Order name: Type And Screen sp4 04/17 06:52 Order name: Packed RBC Leukored EDCT 04/17 11:04 Order name: Magnesium EDCT 04/17 11:04 Order name: Phosphorus EDCT 04/17 11:04 Order name: Urinalysis w/ reflexes EDCT 04/17 11:04 Order name: Basic Metabolic Panel EDCT 04/17 11:04 Order name: Basic Metabolic Panel EDCT 04/17 11:04 Order name: CBC with Automated Diff EDMS 04/17 11:04 Order name: CBC with Automated Diff EDMS 04/17 11:04 Order name: Lipid Profile EDCT 04/17 11:04 Order name: Lipid Profile EDCT 04/17 11:04 Order name: NT PRO-BNP EDCT 04/17 11:04 Order name: NT PRO-BNP EDCT 04/17 06:14 Order name: XRAY Chest (1 view); Complete Time: 07:22 sp4 04/17 06:14 Order name: CT Chest Abdomen Pelvis W/O Contrast; Complete Time: 07:22 sp4 04/17 06:14 Order name: EKG; Complete Time: 06:14 sp4 04/17 06:14 Order name: Cardiac monitoring; Complete Time: 06:38 sp4 04/17 06:14 Order name: EKG - Nurse/Tech; Complete Time: 06:14 sp4 04/17 06:14 Order name: IV Saline Lock; Complete Time: 06:37 sp4 04/17 06:14 Order name: Labs collected and sent; Complete Time: 06:37 sp4 04/17 06:14 Order name: O2 Per Protocol; Complete Time: 06:38 sp4 04/17 06:14 Order name: O2 Sat Monitoring; Complete Time: 06:38 sp4 04/17 12:25 Order name: Labs - recollect needed: collect green top; Complete Time: 14:11 bd EC:10 Rate is 67 beats/min. Rhythm is regular, Paced. Clinical impression: No evidence of sp4 ischemia. Interpreted by me. Reviewed by me. Administered Medications: 07:35 Drug: morphine IVP or IV 4 mg IVP once over 4 mins Route: IVP; Infused Over: 4 mins; db Site: right antecubital; 08:30 Follow up: Response: No adverse reaction; Pain is decreased db 07:35 Drug: Ondansetron IVP 4 mg IVP once; over 2 minutes Route: IVP; Site: right antecubital;db 08:30 Follow up: Response: No adverse reaction db 08:18 Drug: Furosemide IVP 40 mg IVP once; give over 2 minutes Route: IVP; Site: right db antecubital; 10:00 Follow up: Response: No adverse reaction db Disposition Summary: 04/17/24 07:42 Hospitalization Ordered Notes: Hospitalization Status: Inpatient Admission sp4 Provider: Rolando Rivers spTeo Condition: Fair sp4 Problem: new sp4 Symptoms: have improved sp4 Bed/Room Type: Standard sp4 Location: Telemetry/MedSurg (Inpatient)(04/17/24 17:21) Room Assignment: 222(04/17/24 17:21) Diagnosis - 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 EDMS EDMS 06:51 06:39 ABO/RH typing ordered. EDMS EDMS 06:51 06:39 Antibody Screen ordered. EDMS EDMS 12:14 07:42 Telemetry/MedSurg (Inpatient) sp4 ss 12:14 07:42 sp4 ss 12:14 12:14 ss ss 16:17 12:14 [facility] ER HOLD ss iw 16:17 12:14 ERHOLD- ss iw 16:17 16:17 Telemetry/MedSurg (Inpatient) iw iw 16:17 16:17 417 iw iw 16:17 16:17 [facility] ER HOLD iw ss 16:17 16:17 ERHOLD- iw ss 17:21 16:17 [facility] ER HOLD ss ss 17:21 16:17 ERHOLD- ss ss
--- NOTE | 2024-04-17 07:42 | ER ---
Nurse's Notes [facility] Name: Bc Hui Age: 78 yrs Sex: Male : 1945 Arrival Date: 04/17/2024 Time: 06:03 Bed 7 Private MD: Diagnosis: Acute on chronic combined systolic (congestive) and diastolic (congestive) heart failure;Acute pulmonary edema;Unstable angina Presentation: 04/17 06:19 Chief complaint: Patient states: SOB and chest discomfort X3 days. SL nitro taken at lg3 0500 with no relief. Coronavirus screen: Client denies travel out of the [place] in the last 14 days. At this time, the client does not indicate any symptoms associated with coronavirus-19. Ebola Screen: No symptoms or risks identified at this time. Initial Sepsis Screen: Does the patient meet any 2 criteria? No. Patient's initial sepsis screen is negative. Does the patient have a suspected source of infection? No. Patient's initial sepsis screen is negative. Risk Assessment: Do you want to hurt yourself or someone else? Patient reports no desire to harm self or others. Onset of symptoms was April 14, 2024. 06:19 Method Of Arrival: [facility] lg3 06:19 Acuity: SAJAN 3 lg3 Triage Assessment: 06:22 General: Appears in no apparent distress. uncomfortable, Behavior is calm, cooperative. lg3 Pain: Complains of pain in chest Pain radiates to right arm and left arm Pain currently is 1 out of 10 on a pain scale. at worst was 1 out of 10 on a pain scale. Quality of pain is described as stinging. EENT: No deficits noted. No signs and/or symptoms were reported regarding the EENT system. Neuro: No deficits noted. House Agitation-Sedation Scale (RASS): 0 - Alert and Calm Level of Consciousness is awake, alert, obeys commands, Oriented to person, place, time, situation. Cardiovascular: Reports shortness of breath, Capillary refill < 3 seconds Clubbing of nail beds is absent JVD is absent Patient's skin is warm and dry. Respiratory: Reports shortness of breath at rest on exertion Airway is patent Respiratory effort is even, weak, Respiratory pattern is regular, Onset: The symptoms/episode began/occurred 3 days ago, the patient has moderate shortness of breath. GI: No deficits noted. No signs and/or symptoms were reported involving the gastrointestinal system. : No signs and/or symptoms were reported regarding the genitourinary system. Derm: Skin is fragile, is thin, has skin tears on left arm Skin is dry, Skin is normal, Skin temperature is warm. Musculoskeletal: No signs and/or symptoms reported regarding the musculoskeletal system. Circulation, motion, and sensation intact. Range of motion: intact in all extremities. Historical: - Allergies: 06:22 No Known Allergies; lg3 - PMHx: 06:22 Diabetes - NIDDM; High Cholesterol; P16 cancer (Stomach ulcer); PERITONEAL DIALYSIS; lg3 Stomach ulcer; HTN (Stomach ulcer); - PSHx: 06: pacemaker; defib (pacemaker); triple bipass (pacemaker); cardiac stents (pacemaker); lg3 - Immunization history:: Adult Immunizations up to date. - Infectious Disease History:: Denies. - Social history:: Smoking status: Patient denies any tobacco usage or history of. Patient/guardian denies using alcohol, street drugs. - Family history:: not pertinent. Screenin:27 [facility] ED Fall Risk Assessment (Adult) History of falling in the last 3 months, lg3 including since admission No falls in past 3 months (0 pts) Confusion or Disorientation No (0 pts) Intoxicated or Sedated No (0 pts) Impaired Gait Yes (1 pt) Mobility Assist Device Used Yes (1 pt) Altered Elimination Yes (1 pt) Score/Fall Risk Level 3 or more points = High Risk Oriented to surroundings, Maintained a safe environment, Educated pt \T\ family on fall prevention, incl call for assistance when getting out of bed, Assessed \T\ reinforced patient's understanding of fall precautions, Provided non-skid footwear. Abuse screen: Denies threats or abuse. Denies injuries from another. Nutritional screening: No deficits noted. Tuberculosis screening: No symptoms or risk factors identified. Assessment: 07:15 Reassessment: Patient appears in no apparent distress at this time. Patient and/or db family updated on plan of care and expected duration. Pain level reassessed. Patient is alert, oriented x 3, equal unlabored respirations, skin warm/dry/pink. 08:00 Reassessment: Patient appears in no apparent distress at this time. Patient and/or db family updated on plan of care and expected duration. Pain level reassessed. Patient is alert, oriented x 3, equal unlabored respirations, skin warm/dry/pink. PATIENT PROVIDED URINAL. 10:52 Reassessment: PATIENT WOUND REDRESSED TO LEFT UPPER ARM. Cardiovascular: Rhythm is db atrial pacer ventricular pacer. Respiratory: Reports shortness of breath Airway is patent Respiratory effort is even, unlabored, Respiratory pattern is regular, symmetrical. Vital Signs: 06:19 BP 130 / 62; Pulse 69; Resp 15 S; Temp 98.8(O); Pulse Ox 98% on 4 lpm NC; Weight 81.65 lg3 kg (R); Height 5 ft. 8 in. (R); Pain 0/10; 07:35 BP 134 / 60; Pulse 62; Resp 18; Pulse Ox 97% on 2 lpm NC; db 09:00 BP 125 / 56; Pulse 60; Resp 18; Pulse Ox 100% on R/A; db 10:30 BP 108 / 97; Pulse 60; Resp 18; Pulse Ox 100% on 2 lpm NC; db 11:30 BP 116 / 52; Pulse 60; Resp 16; Pulse Ox 99% on R/A; db 12:00 BP 129 / 43; Pulse 60; Resp 18; Pulse Ox 99% on R/A; db 06:19 Body Mass Index 27.37 (81.65 kg, 172.72 cm) lg3 06:19 Pain Scale: Adult lg3 [place] Coma Score: 07:43 Eye Response: spontaneous(4). Motor Response: obeys commands(6). Verbal Response: sp4 oriented(5). Total: 15. ED Course: 06:12 Patient arrived in ED. rv1 06:13 Ziyad Mccartney MD is Attending Physician. sp4 06:22 Triage completed. lg3 06:22 Arm band placed on right wrist. lg3 06:27 Patient has correct armband on for positive identification. Placed in gown. Bed in low lg3 position. Call light in reach. Side rails up X2. Client placed on continuous cardiac and pulse oximetry monitoring. NIBP monitoring applied. 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 Door closed. Noise minimized. Warm blanket given. Pillow given. Family accompanied patient. 06:33 Dressings: Kerlix X 1; left elbow non-adherent dressing x 1 left elbow Vaseline gauze X rv1 1; left elbow. 06:34 CARYL HAWLEY, RN is Primary Nurse. dd2 06:34 Initial lab(s) drawn, by me, sent to lab. Inserted saline lock: 22 gauge in right dd2 antecubital area, using aseptic technique. Blood collected. Flushed with 10 mL NS. Oxygen administration via nasal cannula \T\ 3L/min. 06:37 Troponin HS Sent. dd2 06:37 PT-INR Sent. dd2 06:37 NT PRO-BNP Sent. dd2 06:37 Magnesium Sent. dd2 06:37 LFT's Sent. dd2 06:37 CBC with Diff Sent. dd2 06:37 Basic Metabolic Panel Sent. dd2 06:42 XRAY Chest (1 view) In Process Unspecified. EDMS 06:47 Type And Screen Sent. dd2 07:04 CT Chest Abdomen Pelvis W/O Contrast In Process Unspecified. EDMS 07:40 Rolando Rivers is Hospitalizing Provider. sp4 11:45 Provided Education on: ADMISSION. db 11:45 No provider procedures requiring assistance completed. Patient admitted, IV remains in db place. Administered Medications: 07:35 Drug: morphine IVP or IV 4 mg IVP once over 4 mins Route: IVP; Infused Over: 4 mins; db Site: right antecubital; 08:30 Follow up: Response: No adverse reaction; Pain is decreased db 07:35 Drug: Ondansetron IVP 4 mg IVP once; over 2 minutes Route: IVP; Site: right antecubital;db 08:30 Follow up: Response: No adverse reaction db 08:18 Drug: Furosemide IVP 40 mg IVP once; give over 2 minutes Route: IVP; Site: right db antecubital; 10:00 Follow up: Response: No adverse reaction db Medication: 11:45 VIS not applicable for this client. db Output: 10:54 Urine: 650ml; Total: 650ml. db Outcome: 07:42 Decision to Hospitalize by Provider. sp4 11:45 Admitted to ER Hold. Please see [facility] for further documentation. db 11:45 Condition: stable 11:45 Instructed on the need for admit, 18:04 Patient left the ED. db Signatures: Dispatcher [employer] EDHalle Winn RN RN lg3 Ana Rosado RN RN db Adele Power rv1 Ziyad Mccartney MD MD sp4 CARYL HAWLEY RN RN dd2 Corrections: (The following items were deleted from the chart) 06:51 06:47 ABO/RH typing drawn and sent. dd2 EDMS 06:51 06:47 Antibody Screen drawn and sent. dd2 EDMS 07:51 07:40 Furosemide IVP 40 mg IVP in right antecubital [facility]
[2024-04-17] MEDS ORDERED: FUROSEMIDE 40 MG/4 ML VIAL ONE ×2 (08:16→16:32)
[2024-04-17] MEDS ORDERED: ONDANSETRON 4 MG/2 ML VIAL IV PRN (10:59)
[2024-04-17] MEDS ORDERED: ACETAMINOPHEN 325 MG TABLET PO PRN (11:03)
[2024-04-17] MEDS ORDERED: HYDROCODONE/APAP 5/325 MG TAB ONE (12:13)
[2024-04-17] MEDS: HYDROCODONE/APAP 5/325 MG TAB PO PRN (12:15)
[2024-04-17] MEDS ORDERED: ALBUTEROL 2.5 MG/3 ML NEB SOL ONE (12:48)
[2024-04-17] MEDS ORDERED: IPRATROPIUM BROM 0.5MG/2.5ML ONE (12:48)
[2024-04-17] MEDS: IPRATROPIUM BROM 0.5MG/2.5ML NEB SCH (12:50)
[2024-04-17] MEDS: ALBUTEROL 2.5 MG/3 ML NEB SOL NEB SCH (12:50)
[2024-04-17 14:26] LABS: Magnesium 2.3 mg/dL (1.6-2.4); Phosphorus 3.4 mg/dL (2.5-4.9)
[2024-04-17 15:18] VITALS: BMI 27.3
[2024-04-17] MEDS: PNEUMOCOCCAL VACCINE 0.5 ML IMVAC ONE (16:00)
[2024-04-17 16:28] LABS: Specific Gravity 1.007 (1.005-1.030); Sqamous Epithelial None Seen /HPF (None Seen); Urine Bacteria None Seen /HPF (<20); Urine Bilirubin NEGATIVE (Negative); Urine Blood Negative (Negative); Urine Clarity Turbid (Clear); Urine Color Colorless (Yellow); Urine Culture Reflex Order NOT NEEDED; Urine Glucose NEGATIVE (Negative); Urine Ketones NEGATIVE (Negative); Urine Microscopic Reflex YN ORDER UMIC; Urine Nitrite 1+ (Negative); Urine Protein NEGATIVE (Negative); Urine RBC <5 /HPF (None Seen); Urine Urobilinogen Normal (Normal); Urine WBC <5 /HPF (<5); Urine Yeast (Budding) Trace /HPF (None Seen)
[2024-04-17] MEDS: FUROSEMIDE 40 MG/4 ML VIAL IV SCH (17:00)
[2024-04-17] MEDS: HEPARIN 5000 UNIT/ML 1 ML VIAL SQ SCH (20:54)
[2024-04-17] MEDS: Mupirocin NASAL 2 APPL/1 GM TUBE NAS SCH (20:56)
--- NOTE | 2024-04-18 03:57 | P.HP ---
Certification for Inpatient Patient admitted to: Inpatient With expected LOS: >2 Midnights Patient will require the following post-hospital care: None Practitioner: I am a practitioner with admitting privileges, knowledge of patient current condition, hospital course, and medical plan of care. Services: Services provided to patient in accordance with Admission requirements found in Title 42 Section 412.3 of the Code of Federal Regulations Patient History Date of Service: 04/17/24 Reason for admission: SOB History of Present Illness: Patient is a 78-year-old male with a past medical history significant for GERD, atrial fibrillation, DM2 with neuropathy, CKD, anemia, CHF, CAD, hypertension, S\P Defibrillator presence who presents with complaint of shortness of breath has been ongoing for the past 3 days. Patient reported associated signs and symptoms of chest tightness, orthopnea, dizziness and bilateral lower extremity edema. Patient denies any other signs and symptoms. Symptoms are aggravated or relieved by nothing. Patient decided to present to the hospital due to worsening symptoms. Allergies No Known Allergies Allergy (Verified 01/23/24 10:24) Home Medications: Pantoprazole [Protonix Tab*] 1 tab PO DAILY 11/18/19 Pregabalin 2 tab PO DAILY 11/18/19 Magnesium Oxide [Magnesium] 400 mg PO BID 01/26/20 Mexiletine HCl 200 mg PO BID 01/26/20 Amiodarone HCl [Cordarone*] 200 mg PO BID 01/23/24 Apixaban [Eliquis *] 2.5 mg PO BID 01/23/24 Ascorbic Acid [Vitamin C] 250 mg PO BID 01/23/24 Cetirizine HCl [Zyrtec] 10 mg PO DIRECTED PRN 01/23/24 Cholecalciferol (Vitamin D3) [Vitamin D 5,000 IU Cap*] 5,000 unit PO DAILY 01/23/24 Clopidogrel Bisulfate [Plavix*] 75 mg PO DAILY 01/23/24 Cyanocobalamin (Vitamin B-12) [Vitamin B-12] 2,500 mcg SL DAILY 01/23/24 Docusate [Colace Cap*] 100 mg PO BIDP PRN 01/23/24 Fenofibric Acid (Choline) [Trilipix] 135 mg PO DAILY 01/23/24 Midodrine HCl 10 mg PO BID 01/23/24 Nitroglycerin 0.3 mg SL DIRECTED PRN 01/23/24 [place]-3 Fatty Acids [[place]-3] 2,000 mg PO BID 01/23/24 Rosuvastatin [Crestor*] 10 mg PO DAILY 01/23/24 Tamsulosin HCl 0.4 mg PO DAILY 01/23/24 Doxycycline Hyclate [Vibramycin] 100 mg PO BID #20 cap 02/08/24 traMADol HCL [Ultram*] 50 mg PO Q6H PRN #20 tab 02/08/24 - Past Medical/Surgical History Has patient received pneumonia vaccine in the past: No Diabetic: Yes -: DM II -: Chronic Hypotension -: CAD s/p CABG -: CMP/ CHF s/p pacemaker/debrillator -: Anemia of chronic disease -: History of DVT -: CKD (Dr. Flood/ Lb) -: Recent GI bleed due to the gastric ulcers -: CABGx3 -: Coronary stent -: Back surgery -: Right shoulder surgery -: right ankle surgery -: titanium rods in both femur - Family History Father -: Heart disease - Social History Smoking Status: Never smoker Alcohol use: No CD- Drugs: No Caffeine use: Yes Place of Residence: Home Review of Systems General: Unremarkable Eyes: Unremarkable ENT: Unremarkable Respiratory: Shortness of Breath, Other (Chest tightness ) Cardiovascular: Orthopnea, Edema Gastrointestinal: Unremarkable Genitourinary: Unremarkable Musculoskeletal: Pedal edema, Other (BLE edema ) Integumentary: Unremarkable Neurological: Other (Dizziness) Lymphatics: Unremarkable Physical Examination - Vital Signs Temperature: 97.7 F Blood Pressure: 104/45 Pulse: 61 Respirations: 20 Pulse Ox (%): 93 - Physical Exam General: Alert, In no apparent distress, Oriented x3, Cooperative HEENT: Atraumatic, PERRLA, Mucous membr. moist/pink, EOMI, Sclerae nonicteric Neck: Supple, 2+ carotid pulse no bruit, No LAD, Without JVD or thyroid abnormality Respiratory: Clear to auscultation bilaterally, Normal air movement Cardiovascular: Normal S1 S2, Edema, Irregular heart rate/rhythm Capillary refill: <2 Seconds Gastrointestinal: Normal bowel sounds, Non-distended, No tenderness Musculoskeletal: No tenderness, Swelling Integumentary: No rashes, No significant lesion, No erythema Neurological: Normal gait, Normal speech, Normal tone, Normal affect Lymphatics: No axilla or inguinal lymphadenopathy - Studies Laboratory Data (last 24 hrs) 04/17/24 04/17/24 04/17/24 06:33 06:33 06:33 WBC 12.40 H Hgb 8.6 L Hct 25.6 L Plt Count 245 PT 21.8 H INR 2.09 Sodium 136 Potassium 4.4 BUN 27 H Creatinine 1.43 H Glucose 108 H Magnesium 2.5 H Total Bilirubin 0.5 AST 47 H ALT 40 Alkaline Phosphatase 14 L Assessment and Plan - Plan Acute on chronic systolic CHF exacerbation. Acute Pulmonary Edema --BMP noted as [id number] --CT imaging indicates findings concerning for small bilateral pleural effusion which may reflect combination of edema and Pneumonia --Patient placed on diuresis with Lasix. --Echocardiogram pending to assess cardiac structures and functions. --Daily weight and strict I/O. --Telemetry to monitor for any significant arrhythmia. Pneumonia. --CT imaging indicated findings concerning for pneumonia. --Patient placed on antibiotics and neb treatment with albuterol\Atrovent --Titrate O2 therapy to achieve O2 sats greater than 94%. Hypertension --Stable --Continue Home meds DM2 with neuropathy --BS monitoring with sliding scale insulin --Continue Lyrica for his neuropathy Anemia of chronic disease --H&H stable. --Transfuse if hemoglobin less than 7.0 Atrial fibrillation --Continuing Amiodarone and Eliquis CKD 3 A --Stable --We will continue to monitor Renal functions Leukocytosis. --Likely reactive. --Will continue to monitor WBC levels. History of CAD --Continue Plavix, statin and Eliquis Presence of cardiac pacemaker\defibrillator --Continue supportive care. GERD\HLD\BPH --Continue home medications DVT prophylaxis with Eliquis Discharge Plan: Home Plan to discharge in: Greater than 2 days - Advance Directives Does patient have a Living Will: No Does patient have a Durable POA for Healthcare: No - Code Status/Comfort Care Code Status Assessed: Yes Code Status: Full Code Physician Review: Patient Assessed, Agree with Above Assessment and Plan Critical Care: No
[2024-04-18] MEDS ORDERED: GLUCAGON 1 MG/VIAL IM PRN (04:34)
[2024-04-18] MEDS ORDERED: D10W 125 ML IV PRN (04:34)
[2024-04-18 05:25] LABS: Absolute Basophils 0.2 K/uL (0-0.5); Absolute Eosinophils 0.1 K/uL (0-0.5); Absolute Lymphocytes (CBC) 0.5 K/uL (0.7-4.9); Absolute Neutrophil 8.6 K/uL (1.8-8.0); Basophils % 2.2 % (0-1.3); Eosinophils % 1.2 % (0-4.4); Hematocrit 23.2 % (39.6-49.0); Hemoglobin 7.8 g/dL (13.6-17.9); Lymphocytes % 4.4 % (15.3-44.8); MCH 33.4 pg (27.0-35.0); MCHC 33.6 g/dL (32.0-36.0); MCV 99.4 fL (80-100); MPV 10.7 fL (7.6-11.3); Monocytes % 9.9 % (3.3-12.3); Neutrophils % 82.3 % (41.7-73.7); Platelets 216 thou/uL (152-406); RBC Red Blood Cell Count 2.33 M/uL (4.33-5.43); Red Cell Distribution Width 15.4 % (12.1-15.2)
[2024-04-18] MEDS ORDERED: NITROGLYCERIN 0.4 MG/TAB SL PRN (07:27)
[2024-04-18] MEDS: INSULIN REGULAR (HUMAN) 100 UNIT/ML SQ SCH (07:30)
[2024-04-18] MEDS: PANTOPRAZOLE 40MG TABLET PO SCH (07:30)
[2024-04-18] MEDS ORDERED: CETIRIZINE HCL 5 MG TABLET PO PRN (07:33)
[2024-04-18] MEDS: MIDODRINE HCL 5 MG TABLET PO SCH (08:00)
[2024-04-18] MEDS: CEFTRIAXONE 1,000 MG in NA CHLORIDE 0.9% 50 ML IVPB SCH (08:11)
[2024-04-18] MEDS: ASCORBIC ACID 500 MG TABLET PO SCH (08:18)
[2024-04-18] MEDS: AZITHROMYCIN IV 500 MG in NA CHLORIDE 0.9% 250 ML IVPB SCH (08:19)
[2024-04-18] MEDS: APIXABAN 2.5 MG TABLET PO SCH (08:20)
[2024-04-18] MEDS: FENOFIBRATE 160 MG TAB PO SCH (08:21)
[2024-04-18] MEDS: VITAMIN D 5,000 UNIT CAP PO SCH (08:21)
[2024-04-18] MEDS: CYANOCOBALAMIN 1,000 MCG TAB SL SCH (08:22)
[2024-04-18] MEDS: PREGABALIN 150 MG CAP PO SCH (08:22)
[2024-04-18] MEDS: ROSUVASTATIN 10 MG TAB PO SCH (08:31)
[2024-04-18] MEDS: DOCOSAHEXANOIC AC/EPA 1000 MG PO SCH (08:31)
[2024-04-18] MEDS: TAMSULOSIN 0.4 MG SR CAP PO SCH (08:31)
[2024-04-18] MEDS: MAGNESIUM OXIDE 400 MG TAB PO SCH (08:32)
[2024-04-18] MEDS: MEXILETINE HCL 200 MG PO SCH (09:00)
--- NOTE | 2024-04-18 13:00 | P.CNS ---
Date of Consult: 04/18/24 Reason for Consult: CKD Requesting Physician: fermin hadley Chief Complaint: SOB History of Present Illness: Patient is a 78-year-old male with a past medical history significant for GERD, atrial fibrillation, DM2 with neuropathy, CKD, anemia, CHF, CAD, hypertension, S\P Defibrillator presence who presents with complaint of shortness of breath has been ongoing for the past 3 days. Patient reported associated signs and symptoms of chest tightness, orthopnea, dizziness and bilateral lower extremity edema. Patient denies any other signs and symptoms. Symptoms are aggravated or relieved by nothing. Patient decided to present to the hospital due to worsening symptoms. 06:13 This 78 yrs old Male presents to ER via Unassigned with complaints of chest sp4 pain . 06:39 78-year-old male presents with complaint of acute onset chest pain. . sp4 07:35 This is a patient with past medical history of CKD stage III, . sp4 07:42 Very pleasant male history of CKD, prior peritoneal dialysis, anemia of chronic sp4 disease, atrial fibrillation, CAD, pacemaker defibrillator, diabetes type 2, peptic ulcers, hypercholesterolemia, DVT. Patient presents with acute onset chest pain and shortness of breath.. 07:43 Medication list includes Protonix, pregabalin, magnesium, amiodarone, apixaban twice a sp4 day, further medications include clopidogrel, docusate, fenofibrate, midodrine, nitroglycerin, rosuvastatin, tamsulosin, doxycycline, tramadol.. Allergies No Known Allergies Allergy (Verified 01/23/24 10:24) Home medications list reviewed: Yes Home Medications: Pantoprazole [Protonix Tab*] 1 tab PO DAILY 11/18/19 Pregabalin 2 tab PO DAILY 11/18/19 Magnesium Oxide [Magnesium] 400 mg PO BID 01/26/20 Mexiletine HCl 200 mg PO BID 01/26/20 Amiodarone HCl [Cordarone*] 200 mg PO BID 01/23/24 Apixaban [Eliquis *] 2.5 mg PO BID 01/23/24 Ascorbic Acid [Vitamin C] 250 mg PO BID 01/23/24 Cetirizine HCl [Zyrtec] 10 mg PO DIRECTED PRN 01/23/24 Cholecalciferol (Vitamin D3) [Vitamin D 5,000 IU Cap*] 5,000 unit PO DAILY 01/23/24 Clopidogrel Bisulfate [Plavix*] 75 mg PO DAILY 01/23/24 Cyanocobalamin (Vitamin B-12) [Vitamin B-12] 2,500 mcg SL DAILY 01/23/24 Docusate [Colace Cap*] 100 mg PO BIDP PRN 01/23/24 Fenofibric Acid (Choline) [Trilipix] 135 mg PO DAILY 01/23/24 Midodrine HCl 10 mg PO BID 01/23/24 Nitroglycerin 0.3 mg SL DIRECTED PRN 01/23/24 [place]-3 Fatty Acids [[place]-3] 2,000 mg PO BID 01/23/24 Rosuvastatin [Crestor*] 10 mg PO DAILY 01/23/24 Tamsulosin HCl 0.4 mg PO DAILY 01/23/24 Doxycycline Hyclate [Vibramycin] 100 mg PO BID #20 cap 02/08/24 traMADol HCL [Ultram*] 50 mg PO Q6H PRN #20 tab 02/08/24 - Past Medical/Surgical History Diabetic: Yes -: DM II -: Chronic Hypotension -: CAD s/p CABG -: CMP/ CHF s/p pacemaker/debrillator -: Anemia of chronic disease -: History of DVT -: CKD (Dr. Flood/ Lb) -: Recent GI bleed due to the gastric ulcers -: CABGx3 -: Coronary stent -: Back surgery -: Right shoulder surgery -: right ankle surgery -: titanium rods in both femur - Family History Father Medical History: Heart disease - Social History Alcohol use: No CD- Drugs: No Caffeine use: Yes Place of Residence: Home Review of Systems 10-point ROS is otherwise unremarkable General: Weakness Respiratory: SOB with Excertion Cardiovascular: Edema Physical Examination Temp Pulse Resp BP Pulse Ox 97.5 F 60 15 153/68 H 93 04/18/24 12:00 04/18/24 12:00 04/18/24 12:00 04/18/24 12:00 04/18/24 12:00 General: In no apparent distress, Oriented x3, Cooperative HEENT: Atraumatic Neck: Supple Respiratory: Diminished Cardiovascular: Regular rate/rhythm, Edema (Hip) Gastrointestinal: Soft and benign, Non-distended, No guarding Musculoskeletal: No clubbing, No contractures Integumentary: No rashes, No cyanosis Neurological: Normal speech Blood work reviewed in the chart. Imagings Data: EXAM: CT CHEST, ABDOMEN AND PELVIS WITHOUT CONTRAST CLINICAL INDICATION: Male, 78 years old CHEST PAIN TECHNIQUE: CT chest, abdomen and pelvis was performed, without IV contrast, as per department protocol. Axial, sagittal and coronal reconstructions were obtained. One or more of the following dose reduction techniques were used: Automated exposure control, adjustment of the mA and/or kV according to the patient size, and/or iterative reconstruction. Unless otherwise specified, incidental findings do not require dedicated imaging follow-up. [id number]. COMPARISON: Same-day chest x-ray FINDINGS: The lack of intravenous contrast limits the sensitivity of this exam for evaluation of solid visceral organs, vascular structures, and retroperitoneum. Chest: LOWER NECK: Visualized thyroid gland and soft tissues are normal. LUNGS AND AIRWAYS: Patchy groundglass opacities throughout the lungs with dependent lower lobe consolidation.Motion artifact limits evaluation for pulmonary nodule detection. There is a more discrete type solid nodule in the right upper lobe measuring 14 mm. This is on image 31, series 201. PLEURA: Small bilateral pleural effusions. MEDIASTINUM AND LYMPH NODES: No mediastinal mass or fluid collection. Normal size mediastinal, hilar, and axillary lymph nodes. THORACIC AORTA: No thoracic aortic aneurysm. PULMONARY ARTERIES: Enlarged main pulmonary arteries could indicate pulmonary artery hypertension. HEART: Mild cardiomegaly. Multivessel coronary artery diseaseNo significant pericardial effusion. Pacemaker/AICD. Abdomen/Pelvis UPPER GI: Gastric wall appears diffusely thickened. LIVER: Increased density of the liver which could be from amiodarone or iron deposition. GALLBLADDER/BILE DUCTS: Cholelithiasis versus sludge without CT evidence of acute cholecystitis.? PANCREAS: Atrophy, but otherwise unremarkable. SPLEEN: Unremarkable. ADRENALS: No adrenal masses. KIDNEYS AND URETERS: No hydronephrosis.No suspicious renal mass identified. Limited without IV contrast.No renal or ureteral calculi. ABDOMINAL AORTA AND OTHER VESSELS: Moderate atherosclerotic changes without aortic aneurysm. PERITONEUM: No abnormal free fluid. No free air. LYMPH NODES: No pathologic lymphadenopathy. ABDOMINAL WALL: Body wall edema. SMALL BOWEL/COLON: Small bowel has normal course and caliber. No colonic wall thickening or pericolonic inflammatory changes.Normal appendix. URINARY BLADDER: Underdistended but grossly unremarkable. REPRODUCTIVE ORGANS: No pathologic process. MUSCULOSKELETAL: Bilateral hip ORIF. Multiple lytic lesions in the axial skeleton. Remote left-sided rib fractures. Sternotomy. Fusion hardware in the upper thoracic spine. T11 fracture involving the anterior wall and inferior endplate is favored chronic. Diffuse idiopathic skeletal hyperostosis. ADDITIONAL FINDINGS: None. IMPRESSION: 1. Multifocal airspace disease with small bilateral pleural effusions which may reflect combination of edema and pneumonia. Recommend 3 month follow-up chest CT to reevaluate the right lung nodule. 2. No acute findings within the abdomen or pelvis. 3. T11 fracture involving the anterior wall and inferior endplate likely due to background of diffuse idiopathic skeletal hyperostosis. Suspect a subacute or remote fracture however correlate with patient's symptoms. EXAM: Chest Single View HISTORY: CHEST PAIN COMPARISON: 02/06/2024 FINDINGS: LUNGS/PLEURA: Obscured left hemidiaphragm which may be due to underpenetration. Increased prominence of the central pulmonary vasculature. MEDIASTINUM: The mediastinal silhouette is within normal limits. CARDIAC: Stable size and configuration. UPPER ABDOMEN: No significant abnormality. BONES: Sternotomy. No acute abnormality. Remote right-sided rib fractures. LINES/TUBES/OTHER: Pacemaker/ICD. IMPRESSION: Pulmonary vascular congestion versus edema. Partially obscured left lung base which may be from underpenetration versus airspace disease/pleural fluid. Chest CT is pending at time of dictation. Conclusions/Impression: CKD III -No NSAIDs Hypotension -Continue Midodrine Systolic CHF, A/C Severe Pulomonary HTN -Continue Lasix DM II with CKD and Polyneuropathy -RISS -Continue Lyrica Hypoalbuminemia -Encourage protein intake Anemia in chronic illness -Monitor H&H -PRBC prn BPH with LUTS -Continue tamsulosin Hospitalist and ER notes reviewed Case reviewed with Dr. Hadley Thank you kindly for the consultation
--- NOTE | 2024-04-18 18:07 | P.PN ---
Subjective Date of Service: 04/18/24 Chief Complaint: SOB Patient reports improvement in his shortness of breath. Oxygen weaned down from 4 L to 2 L. No recorded fever. Physical Examination - Vital Signs Temperature: 97.8 F Blood Pressure: 145/64 Pulse: 64 Respirations: 16 Pulse Ox (%): 93 Assessment And Plan - Plan Physical examination General: Alert and oriented x3, NAD, HEENT: Conjunctiva not pale, anicteric sclera Neck: Supple, no elevated JVD Heart: Heart sounds 1 and 2 normal, regular rhythm, normal rate, no pedal edema Lungs: Bibasilar crackles, adequate breath sounds bilaterally, no rhonchi. Abdomen: Soft, nondistended, nontender, normal bowel sounds. Extremities: No tenderness, no deformity Skin: Normal skin turgor, no rash, no nodules or ulcers. Neuro: No focal motor deficit. Normal speech. Psychiatry: Normal mood, no agitation. Assessment and plan Acute on chronic systolic CHF exacerbation. Acute Pulmonary Edema CT imaging indicates findings concerning for small bilateral pleural effusion which may reflect combination of edema and Pneumonia Continue IV Lasix Echocardiogram is pending Monitor intake and output. Continue telemetry Pneumonia CT imaging indicated findings concerning for pneumonia. Continue antibiotic Neb treatment as needed. Atrial fibrillation Continuing Amiodarone, mexiletine and Eliquis. Telemetry. DM2 with neuropathy Insulin sliding scale for glucose management. Continue Lyrica for his neuropathy Anemia of chronic disease Drop in hemoglobin noted. Monitor H&H and transfuse for hemoglobin less than 7 CKD 3 A Stable Monitor renal function with diuresis. Nephrology consulted. History of CAD Presence of cardiac pacemaker\defibrillator Continue Plavix, statin and Eliquis GERD\HLD\BPH --Continue home medications DVT prophylaxis with Eliquis Advanced directive: Full code Discharge Plan: Home
[2024-04-18] MEDS: DOCUSATE NA 100 MG CAP PO PRN (21:50)
[2024-04-19 05:18] LABS: Absolute Basophils 0.1 K/uL (0-0.5); Absolute Eosinophils 0.1 K/uL (0-0.5); Absolute Lymphocytes (CBC) 0.5 K/uL (0.7-4.9); Absolute Monocytes 1.5 K/uL (0.1-1.3); Absolute Neutrophil 12.8 K/uL (1.8-8.0); Basophils % 0.9 % (0-1.3); Eosinophils % 0.6 % (0-4.4); Hematocrit 21.6 % (39.6-49.0); Hemoglobin 7.1 g/dL (13.6-17.9); Lymphocytes % 3.4 % (15.3-44.8); MCH 32.5 pg (27.0-35.0); MCHC 33.1 g/dL (32.0-36.0); MCV 98.3 fL (80-100); MPV 10.9 fL (7.6-11.3); Monocytes % 9.7 % (3.3-12.3); Neutrophils % 85.4 % (41.7-73.7); Nucleated Red Blood Cells % 0.2 % (0-0); Platelets 217 thou/uL (152-406); Red Cell Distribution Width 15.6 % (12.1-15.2)
[2024-04-19 05:30] LABS: Anion Gap 10.4 mEq/L (5.0-15.0); Potassium 4.4 mEq/L (3.5-5.1)
--- NOTE | 2024-04-19 06:52 | ECHO ---
HEIGHT: 5 ft 8 in WEIGHT: 180 lb 0.119 oz DATE OF STUDY: 04/18/[address]: Rolando Rivers MD 2-DIMENSIONAL: YES M.MODE: YES DOPPLER: YES COLOR FLOW: YES TDS: PORTABLE: YES DEFINITY: BUBBLE STUDY: DIAGNOSIS: HEART FAILURE CARDIAC HISTORY: CATHERIZATION: YES SURGERY: YES PROSTHETIC VALVE: NO PACEMAKER: YES MEASUREMENTS (cm) DIASTOLIC (NORMALS) SYSTOLIC (NORMALS) IVSd 1.0 (0.6-1.2) LA Diam 4.8 (1.9-4.0) LVEF 50% LVIDd 6.4 (3.5-5.7) LVIDs 5.1 (2.0-3.5) %FS LVPWd 1.4 (0.6-1.2) Ao Diam 3.1 (2.0-3.7) 2 DIMENSIONAL ASSESSMENT: RIGHT ATRIUM: NORMAL LEFT ATRIUM: SEVERELY DILATED RIGHT VENTRICLE: PACEMAKER WIRE LEFT VENTRICLE: DILATED TRICUSPID VALVE: MILD TRICUSPID REGURGITATION MITRAL VALVE: MODERATE MITRAL REGURGITATION PULMONIC VALVE: MILD PULMONIC INSUFFICIECNY AORTIC VALVE: NORMAL PERICARDIAL EFFUSION: NONE AORTIC ROOT: NORMAL LEFT VENTRICULAR WALL MOTION: MILD GLOBAL HYPOKINESIS DOPPLER/COLOR FLOW: SEE BELOW COMMENTS: 1. POOR WINDOWS 2. OVERALL LEFT VENTRICULAR EJECTION FRACTION APPEARS NORMAL - 50% 3. DIASTOLIC DYSFUNCTION 4. SEVERE LEFT ATRIAL ENLARGEMENT 5. MODERATE TO SEVERE MITRAL REGURGITATION 6. SEVERE PULMONARY HYPERTENSION WITH RIGHT VENTRICULAR SYSTOLIC PRESSURE GREATER THAN 60 mmHg TECHNOLOGIST: AMADOU HOLCOMB
[2024-04-19 08:06] LABS: Band Neutrophils 2 % (0-1); Differential Total Cells Count 100; Lymphocytes 1 % (15-42); Segmented Neutrophils 83 % (40-80)
[2024-04-19 08:07] LABS: Atypical Lymphocytes 2 %; Blood Morphology Comment NOTED (NOT SEEN); Eosinophils 1 % (0-3); Monocytes 10 % (0-10); Platelet Estimate ADEQ; Target Cells 1+
[2024-04-19] MEDS ORDERED: NA CHLORIDE 0.9% 250 ML IV SCH (11:00)
--- NOTE | 2024-04-19 12:06 | P.PN ---
Nephrology note (S) Pt reports chronic dyspnea a bit better since admission, has been diuresing on IV lasix, had been out of PO Bumex possibly, agreeable to PRBC transfusion, has not been able to get MELISSA therapy as OP (O) Vitals reviewed in the EMR General: Pale, elderly appearing, NAD HEENT: Atraumatic, sclera anicteric, not on O2 Neck: Supple Respiratory: Non tachypnec, b/l air entry, no sig rhonchi Cardiovascular: Non tachy, cardiac murmur Gastrointestinal: Soft and benign, Non-distended Musculoskeletal: Muscle mass loss, shins non tender Integumentary: No rashes Neurological: Normal speech, conversive, alert, no tremors, LE muscle strength 4/5 Blood work reviewed in the chart. Conclusions/Impression: CKD III unspecified with prior hx of dialysis dependence in the setting of his chronic heart conditions to address volume status, prev on [facility]CPD but off over the past few mo due to PD catheter malfunction -No indication to return to [facility] at this time and current symptoms are not related to his CKD Hypotension, other, chronic -Continue scheduled Midodrine Acute on chronic combined systolic + diastolic CHF, MR Severe Pulomonary HTN 2nd to left sided heart disease -May have been out of PO Bumex as did not receive his mail order supply, diuresing on IV lasix Chronic debility, generalized muscle weakness -Has declined further, largely bed/chair bound, requires assistance to transfer, other. Will obtain PT consult to re-assess Anemia in chronic illness and CKD -Target HB > 8 with his cardiac issues, transfuse 1 unit today Discussed his overall decline in condition over the past 6 mo and discussed switch to palliative care/hospice and pt/ interested in consult to review options
[2024-04-19 13:10] LABS: Thyroid Stimulating Hormone 6.98 uIU/mL (0.358-3.740)
--- NOTE | 2024-04-19 18:03 | P.PN ---
Subjective Date of Service: 04/19/24 Chief Complaint: SOB Patient reports improvement in his shortness of breath. He is currently tolerating room air. Patient apparently ran out of Bumex at home. No recorded fever. Physical Examination - Vital Signs Temperature: 98.1 F Blood Pressure: 100/50 Pulse: 61 Respirations: 16 Pulse Ox (%): 99 Assessment And Plan - Plan Physical examination General: Alert and oriented x3, NAD, Neck: No elevated JVD Heart: Heart sounds 1 and 2 normal, regular rhythm, normal rate, no pedal edema Lungs: Bibasilar crackles, adequate breath sounds bilaterally, no rhonchi. Abdomen: Soft, nondistended, nontender, normal bowel sounds. Extremities: No tenderness, no deformity Skin: Normal skin turgor, no rash, no nodules or ulcers. Neuro: No focal motor deficit. Normal speech. Psychiatry: Normal mood, no agitation. Assessment and plan Acute on chronic systolic CHF exacerbation. Acute Pulmonary Edema Acute respiratory failure with hypoxia CT imaging indicates findings concerning for small bilateral pleural effusion which may reflect combination of edema and Pneumonia On IV Lasix Echocardiogram is pending Monitor intake and output. Pneumonia CT imaging indicated findings concerning for pneumonia. Continue antibiotics Neb treatment as needed. Atrial fibrillation Continuing Amiodarone, mexiletine and Eliquis. . DM2 with neuropathy Insulin sliding scale for glucose management. Continue Lyrica for his neuropathy Anemia of chronic disease Drop in hemoglobin noted. Monitor H&H and transfuse for hemoglobin less than 7 CKD 3 A Stable Monitor renal function with diuresis. Nephrology consulted. History of CAD Presence of cardiac pacemaker\defibrillator Continue Plavix, statin and Eliquis GERD\HLD\BPH --Continue home medications 04/19 Patient respiratory status significantly improved. He is tolerating room air with good oxygen saturation Patient is significantly debilitated. History of severe pulmonary hypertension. Echocardiogram shows severe left atrial dilatation along with moderate to severe mitral regurgitation. Patient is well-known to the nephrology service. 1 unit PRBC transfusion for symptomatic anemia today. Patient and spouse receptive of hospice. Social service consulted for hospice evaluation. DVT prophylaxis with Eliquis Advanced directive: Full code Discharge Plan: Home
[2024-04-19] MEDS: AMIODARONE HCL 200 MG TAB PO SCH (20:16)
[2024-04-20 05:32] LABS: Absolute Basophils 0.1 K/uL (0-0.5); Absolute Eosinophils 0.1 K/uL (0-0.5); Absolute Lymphocytes (CBC) 0.5 K/uL (0.7-4.9); Absolute Monocytes 1.1 K/uL (0.1-1.3); Absolute Neutrophil 8.5 K/uL (1.8-8.0); Eosinophils % 1.4 % (0-4.4); Hematocrit 23.5 % (39.6-49.0); Lymphocytes % 4.7 % (15.3-44.8); MCH 32.3 pg (27.0-35.0); MCHC 33.8 g/dL (32.0-36.0); MCV 95.6 fL (80-100); MPV 11.1 fL (7.6-11.3); Monocytes % 10.6 % (3.3-12.3); Neutrophils % 82.3 % (41.7-73.7); Nucleated Red Blood Cells % 0.2 % (0-0); Platelets 194 thou/uL (152-406); RBC Red Blood Cell Count 2.46 M/uL (4.33-5.43); Red Cell Distribution Width 17.3 % (12.1-15.2)
[2024-04-20] MEDS: LEVOTHYROXINE SOD 0.025 MG TAB PO SCH (06:38)
[2024-04-20] MEDS: CLOPIDOGREL 75 MG TABLET PO SCH (08:26)
[2024-04-20] MEDS: PREGABALIN 75 MG CAP PO SCH (08:26)
[2024-04-20] MEDS: MAGNESIUM OXIDE 400 MG TAB PO SCH (08:28)
[2024-04-20] MEDS: NEPRO SHAKE 237 ML CAN PO SCH (08:28)
[2024-04-20] MEDS ORDERED: PREGABALIN 150 MG CAP PO SCH (09:00)
[2024-04-20 09:44] VITALS: O2SAT 100
--- NOTE | 2024-04-20 11:59 | P.DS ---
Admission Date: 04/17/24 Discharge Date: 04/20/24 Disposition: DC HOME/HOME HEALTH CARE Discharge Condition: FAIR Reason for Admission: SOB Brief History of Present Illness: 78-year-old male with a past medical history significant for GERD, atrial fibrillation, DM2 with neuropathy, CKD, anemia, CHF, CAD, hypertension, S\P Defibrillator presented with complaint of shortness of breath has been ongoing for 3 days. Patient reported associated signs and symptoms of chest tightness, orthopnea, dizziness and bilateral lower extremity edema. Chest CT abdomen and pelvis done demonstrated bilateral multifocal airway disease with bilateral pleural effusion suggestive of pulmonary edema versus infiltrate. Patient ran out of his Bumex at home. History of chronic kidney disease, status post peritoneal dialysis in the past. Patient admitted to the medical floor for further management. Hospital Course: Patient admitted to the medical floor and the following medical problems addressed: Acute on chronic systolic CHF exacerbation. Acute Pulmonary Edema Acute respiratory failure with hypoxia CT imaging indicates findings concerning for small bilateral pleural effusion which may reflect combination of edema and Pneumonia Patient was treated with IV Lasix. Respiratory status improved. He was weaned off oxygen to room air. Patient is not ambulatory Echocardiogram showed pulmonary hypertension, severely dilated right atrium and moderate to severe mitral regurgitation. Patient respiratory status has improved to baseline. He apparently ran out of his home Bumex. Patient given refill for Bumex. Patient and spouse expressed interest in palliative care/hospice however stated they are not ready for it yet. 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 Pneumonia CT imaging indicated findings concerning for pneumonia. Patient treated with IV Rocephin and Zithromax and oxygen to Levaquin on discharge Atrial fibrillation Stable on amiodarone, mexiletine and Eliquis. . DM2 with neuropathy Insulin sliding scale used for glucose management. Continued Lyrica for his neuropathy Anemia of chronic disease Drop in hemoglobin to 7.1 noted. Patient was given 1 unit PRBC. Hemoglobin up to 8 after transfusion. CKD 3 A Stable with diuresis. Nephrology evaluated patient and assisted with management. History of CAD Presence of cardiac pacemaker\defibrillator Continued Plavix, statin and Eliquis GERD\HLD\BPH --Continued home medications Vital Signs/Physical Exam: Temp Pulse Resp BP Pulse Ox 97.7 F 63 16 101/49 L 97 04/20/24 08:00 04/20/24 08:00 04/20/24 08:00 04/20/24 08:00 04/20/24 08:00 General: Alert, In no apparent distress, Oriented x3 HEENT: Mucous membr. moist/pink Neck: JVD not distended Respiratory: Clear to auscultation bilaterally, Normal air movement Cardiovascular: No edema, Normal S1 S2, Irregular heart rate/rhythm Gastrointestinal: Normal bowel sounds, Soft and benign, Non-distended Musculoskeletal: No swelling Integumentary: No cyanosis Neurological: Other (No focal motor deficit) Laboratory Data at Discharge: WBC 10.30 thou/uL (4.3-10.9) 04/20/24 05:00 Hgb 8.0 g/dL (13.6-17.9) L 04/20/24 05:00 Hct 23.5 % (39.6-49.0) L 04/20/24 05:00 Plt Count 194 thou/uL (152-406) 04/20/24 05:00 PT 21.8 SECONDS (9.4-12.5) H 04/17/24 06:33 INR 2.09 04/17/24 06:33 Sodium 136 mEq/L (136-145) 04/20/24 05:00 Potassium 4.0 mEq/L (3.5-5.1) 04/20/24 05:00 BUN 36 mg/dL (7-18) H 04/20/24 05:00 Creatinine 1.83 mg/dL (0.70-1.30) H 04/20/24 05:00 Glucose 98 mg/dL (74-106) 04/20/24 05:00 Uric Acid 5.0 mg/dL (3.5-7.2) 04/19/24 05:00 Phosphorus 3.4 mg/dL (2.5-4.9) 04/17/24 13:41 Magnesium 2.3 mg/dL (1.6-2.4) 04/17/24 13:41 Total Bilirubin 0.5 mg/dL (0.2-1.0) 04/17/24 06:33 AST 47 U/L (15-37) H 04/17/24 06:33 ALT 40 U/L (16-61) 04/17/24 06:33 Alkaline Phosphatase 14 U/L (45-117) L 04/17/24 06:33 Triglycerides 98 mg/dL (<150) 04/18/24 04:46 Cholesterol 134 mg/dL (<200) 04/18/24 04:46 HDL Cholesterol 30 mg/dL (40-60) L 04/18/24 04:46 Cholesterol/HDL Ratio 4.47 04/18/24 04:46 Home Medications: Pantoprazole [Protonix Tab*] 1 tab PO DAILY 11/18/19 Pregabalin 2 tab PO DAILY 11/18/19 Magnesium Oxide [Magnesium] 400 mg PO BID 01/26/20 Mexiletine HCl 200 mg PO BID 01/26/20 Amiodarone HCl [Cordarone*] 200 mg PO BID 01/23/24 Apixaban [Eliquis *] 2.5 mg PO BID 01/23/24 Ascorbic Acid [Vitamin C] 250 mg PO BID 01/23/24 Cetirizine HCl [Zyrtec] 10 mg PO DIRECTED PRN 01/23/24 Cholecalciferol (Vitamin D3) [Vitamin D 5,000 IU Cap*] 5,000 unit PO DAILY 01/23/24 Clopidogrel Bisulfate [Plavix*] 75 mg PO DAILY 01/23/24 Cyanocobalamin (Vitamin B-12) [Vitamin B-12] 2,500 mcg SL DAILY 01/23/24 Docusate [Colace Cap*] 100 mg PO BIDP PRN 01/23/24 Fenofibric Acid (Choline) [Trilipix] 135 mg PO DAILY 01/23/24 Midodrine HCl 10 mg PO BID 01/23/24 Nitroglycerin 0.3 mg SL DIRECTED PRN 01/23/24 Chandler-3 Fatty Acids [Chandler-3] 2,000 mg PO BID 01/23/24 Rosuvastatin [Crestor*] 10 mg PO DAILY 01/23/24 Tamsulosin HCl 0.4 mg PO DAILY 01/23/24 traMADol HCL [Ultram*] 50 mg PO Q6H PRN #20 tab 02/08/24 Bumetanide 1 mg PO BID #60 tab 04/20/24 Hydrocodone 5/APAP 325 [[place] 5/325*] 1 tab PO Q6H PRN #15 tab 04/20/24 Mupirocin Calcium [Bactroban Nasal*] 1 appl EDOUARD BID #1 tube 04/20/24 Nepro Shake [Nepro*] 240 ml PO DAILY #30 can 04/20/24 levoFLOXacin [Levaquin] 750 mg PO Q48H #5 tab 04/20/24 New Medications: Mupirocin Calcium [Bactroban Nasal*] 1 appl EDOUARD BID #1 tube Bumetanide 1 mg PO BID #60 tab levoFLOXacin [Levaquin] 750 mg PO Q48H #5 tab Nepro Shake [Nepro*] 240 ml PO DAILY #30 can Hydrocodone 5/APAP 325 [[place] 5/325*] 1 tab PO Q6H PRN #15 tab PRN Reason: Pain Scale 5-7 (Moderate) Diet: AHA Activity: Fall precautions Followup: Ken Roman MD [Primary Care Provider] - 1-2 Weeks Leia Flood MD [ACTIVE - CAN ADMIT] - 1-2 Weeks Time spent managing pt's care (in minutes): 40
[2024-04-20] MEDS ORDERED: EPOETIN ALFA-EPBX 10,000 UNIT/ML VIAL SQ ONE (12:00)
[2024-04-20] MEDS ORDERED: EPOETIN ALFA 10,000 UNIT/ML VIAL IV ONE (12:00)
[2024-04-20 12:47] VITALS: BP 115/54; TEMP 98.1
--- NOTE | 2024-04-20 13:08 | PN ---
Date of Progress Note: 04/20/2024 Subjective: The patient was seen and examined at bedside. He denies any complaints. He wants to go home. Objective: Vital Signs: Reviewed. Blood pressure continues to be low in the 100 range. He remains on 2 L nasal cannula oxygen. General: He appears cachectic and malnourished. HEENT: Shows atraumatic head. Lungs: Clear to auscultation with diminished breath sounds at bases. Heart: Auscultation of the heart reveals a regular rate and rhythm. Abdomen: Soft and nontender. Extremities: Showed no evidence of edema. Laboratory Data: Showing creatinine of 1.83 and CBC showing hemoglobin of 8, that is after blood tra nsfusion. Current Medications: Have been reviewed in detail. Impression: 1. Stage IV chronic kidney disease with underlying cardiorenal syndrome. The patient had been on shonda lysis previously and peritoneal dialysis had to be discontinued secondary to infection. Currently, garcía schroeder is not receiving any dialysis and his renal function has remained stable and his volume status jolie ins stable at this time. The patient will, however, need to continue Bumex 2 mg twice a day at home. I have sent the prescription into the local pharmacy to make sure that he takes it. I counseled jaqui whyte on low-sodium diet as well. 2. 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 The patient will continue his other home medications including amiodarone and Eliquis along with midodrine to improve his cardiac function an d monitor closely. 3. Pulmonary edema with underlying pneumonia, improving slowly. Patient remains on ceftriaxone at th is time. He is okay to be discharged on p.o. antibiotics and Bumex for volume control. 4. Anemia secondary to chronic kidney disease. The patient will get a dose of Retacrit today before discharge to maintain his hemoglobin levels. He has required 2 blood transfusions in the last 2 week s secondary to lack of Epogen because of delays with insurance approval and pharmacy. We will contin ue to work on the insurance approval for the MELISSA at this time. I will give him a dose while he is in the hospital. He is okay to be discharged otherwise from Nephrology standpoint. Discussed with him regarding goals of care. The patient and family understand hospice and palliative care options, how ever, they are not ready for hospice yet according to them. We will continue to manage symptoms and a transition to hospice when appropriate. VV/MODL Voice ID: [id number] Report ID: [id number]
--- NOTE | 2024-04-22 12:14 | EKG ---
Test Date: 2024-04-18 Test Time: 23:56:03 Concrete Polisher: FS MEASUREMENT RESULTS: Intervals: Rate: 61 IN: QRSD: 176 QT: 520 QTc: 523 Superior: P: -22 IN: QRS: 164 T: -24 INTERPRETIVE STATEMENTS: AV sequential or dual chamber electronic pacemaker Compared to ECG 04/17/2024 06:10:15 Ventricular-paced complex(es) or rhythm no longer present Electronically Signed On 04-22-24 12:11:23 COLLECTION COORDINATOR by Reid Huerta
--- NOTE | 2024-04-22 12:25 | EKG ---
Test Date: 2024-04-17 Test Time: 06:10:15 Butter Wrapper: RV MEASUREMENT RESULTS: Intervals: Rate: 67 ND: 166 QRSD: 192 QT: 562 QTc: 593 [place]: P: 253 ND: 166 QRS: -58 T: 3 INTERPRETIVE STATEMENTS: AV dual-paced rhythm Abnormal ECG Compared to ECG 02/06/2024 12:35:15 No significant changes Electronically Signed On 04-22-24 12:16:15 DIRECTOR OF ATHLETICS by Reid Huerta
== END 2024-04-20 13:45 | disposition home health service (06) | DRG 291 ==
LOC: ER 06:03 → ERHOLD 10:59 → 2ND 17:36
PROVIDERS: ADMIT Internal Medicine; ATTEND Internal Medicine
PROC: 30233N1 Transfusion of Nonautologous Red Blood Cells into Peripheral Vein, Percutaneous Approach (ICD-10-PCS; principal; 2024-03-31)
DX: I13.0 Hypertensive heart and chronic kidney disease with heart failure and stage 1 through stage 4 chronic kidney disease, or unspecified chronic kidney disease (principal); I50.23 Acute on chronic systolic (congestive) heart failure; J18.9 Pneumonia, unspecified organism; J96.01 Acute respiratory failure with hypoxia; J81.0 Acute pulmonary edema; N18.4 Chronic kidney disease, stage 4 (severe); I27.20 Pulmonary hypertension, unspecified; E11.40 Type 2 diabetes mellitus with diabetic neuropathy, unspecified; D63.1 Anemia in chronic kidney disease; I48.91 Unspecified atrial fibrillation; E11.22 Type 2 diabetes mellitus with diabetic chronic kidney disease; K21.9 Gastro-esophageal reflux disease without esophagitis; I25.10 Atherosclerotic heart disease of native coronary artery without angina pectoris; N40.1 Benign prostatic hyperplasia with lower urinary tract symptoms; E78.5 Hyperlipidemia, unspecified; Z79.01 Long term (current) use of anticoagulants; Z95.810 Presence of automatic (implantable) cardiac defibrillator; Z95.5 Presence of coronary angioplasty implant and graft
CPT/HCPCS: 36415; 71045; 71250; 74176; 80048; 80061; 80076; 81001; 82533; 82947; 83735; 83880; 84100; 84145; 84439; 84443; 84484; 84550; 85014; 85018; 85025; 85610; 86850; 86900; 86901; 86920; 93005; 93306; 94640; 94760; 96374; 96375; 99285; J0696; J1644; J1940; J2405; J7050; J7613; J7644; P9016; Q5106

== ENCOUNTER 2024-04-26 15:14 | Emergency (ER) | payer OTHER, BC ==
--- OUTSIDE RECORDS SUMMARY | 2024-04-26 15:16 | XMS REPORT | Clinical Summary ---
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 Gender Identity Not on file Sexual Orientation Not on file Plan of Treatment Health Maintenance Due Date Last Done Comments Pneumococcal Vaccine: 50+ Ye ars (2 of 2 - PCV) 10/17/2013 10/17/2012 COVID-19 Vaccine (2023-2 5 season) 2023 11/29/2021, 06/15/2021, 11/06/2020, Additional history exists Influenza Vaccine (#1) 2023 12/01/2020, 2018 Insurance MEDICARE PART A AND B [facility] [place] PPO POS MEDICARE PART A AND B [facility] PPO POS Care Teams Manager Filter Relationship Specialty Start Date End Date Ken Roman MD [address] [place] [id number] PCP - External Primary Care Provider Family Practice 04/05/22 Sola Guzman MD [address] [place] [id number] [email or web address] PCP - General Head and Neck Surgery 04/05/22
[2024-04-26] MEDS ORDERED: NA CHLORIDE 0.9% 500 ML ONE (15:36)
[2024-04-26 15:56] LABS: Absolute Basophils 0.1 K/uL (0-0.5); Absolute Lymphocytes (CBC) 0.6 K/uL (0.7-4.9); Absolute Neutrophil 9.4 K/uL (1.8-8.0); Basophils % 0.9 % (0-1.3); Eosinophils % 0.2 % (0-4.4); Hematocrit 30.3 % (39.6-49.0); Hemoglobin 10.2 g/dL (13.6-17.9); Lymphocytes % 5.2 % (15.3-44.8); MCH 32.1 pg (27.0-35.0); MCHC 33.6 g/dL (32.0-36.0); MCV 95.5 fL (80-100); MPV 10.6 fL (7.6-11.3); Neutrophils % 84.7 % (41.7-73.7); Nucleated Red Blood Cells % 0.1 % (0-0); Platelets 237 thou/uL (152-406); RBC Red Blood Cell Count 3.18 M/uL (4.33-5.43); Red Cell Distribution Width 15.7 % (12.1-15.2)
--- NOTE | 2024-04-26 16:00 | RAD REPORT ---
EXAMINATION: Head Brain Wo Cont CLINICAL INDICATION: Male, 78 years old.WEAKNESS TECHNIQUE: Axial CT images from the skull base to the vertex without intravenous contrast. Coronal an d sagittal reformatted images were created from the data set. One or more of the following dose reduction techniques were used: Automated exposure control, adjustment of the mA and/or kV according to patient size, and/or iterative reconstruction. Unless otherwise specified, incidental findings do not require dedicated imaging follow-up. [id number]. COMPARISON: 05/06/2022 FINDINGS: INTRACRANIAL: No acute intracranial hemorrhage. No hydrocephalus. No mass effect or midline shift. Mi ld chronic small vessel ischemic changes.Age advanced cerebral atrophy. VASCULATURE: No visualized abnormalities in the arteries or dural venous sinuses. SCALP/SKULL: No calvarial fracture identified. No acute soft tissue abnormality. SINUSES: The visualized paranasal sinuses and mastoid air cells are predominantly clear. No significa nt mastoid fluid. IMPRESSION: No acute intracranial abnormality.
[2024-04-26 16:01] LABS: Albumin 2.4 g/dL (3.4-5.0); Albumin/Globulin Ratio 0.7 (1.1-1.8); Anion Gap 9.4 mEq/L (5.0-15.0); Bilirubin Total 0.6 mg/dL (0.2-1.0); Globulin 3.3 g/dL (2.3-3.5); PT Prothrombin Time 30.4 SECONDS (10.0-13.0); PTT, Activated Partial Thromb 41.1 SECONDS (24.3-36.9); Potassium 3.4 mEq/L (3.5-5.1); Protein, Total 5.7 g/dL (6.4-8.2); Protime INR 2.8; Troponin High Sensitivity 33.5 pg/mL (<58.9)
--- NOTE | 2024-04-26 16:14 | RAD REPORT ---
EXAM: Chest Single View HISTORY: 78 years Male general weakness COMPARISON: 04/17/2024 FINDINGS: LUNGS/PLEURA: Decreased lung volumes. The left lung base is again not well assessed due to presumed u nderpenetration though there is likely a small left effusion. Vascular congestion. CARDIAC/MEDIASTINUM: Stable enlargement. UPPER ABDOMEN: No significant abnormality. BONES: No acute abnormality. Fusion hardware in the thoracic spine. LINES/TUBES/OTHER: Pacemaker/AICD. IMPRESSION: Pulmonary vascular congestion with small left pleural effusion
[2024-04-26 16:29] LABS: Band Neutrophils 2 % (0-1); Blood Morphology Comment NOT SEEN (NOT SEEN); Differential Total Cells Count 100; Lymphocytes 4 % (15-42); Monocytes 6 % (0-10); Platelet Estimate ADEQ; Reactive Lymphocytes 2 %; Segmented Neutrophils 86 % (40-80)
[2024-04-26 16:52] LABS: Specific Gravity 1.011 (1.005-1.030); Sqamous Epithelial <5 /HPF (None Seen); Urine Bacteria None Seen /HPF (<20); Urine Bilirubin NEGATIVE (Negative); Urine Blood Negative (Negative); Urine Clarity Clear (Clear); Urine Color Light-Yellow (Yellow); Urine Culture Reflex Order NOT NEEDED; Urine Glucose NEGATIVE (Negative); Urine Ketones NEGATIVE (Negative); Urine Microscopic Reflex YN ORDER UMIC; Urine Mucus Slight /HPF (None Seen); Urine Nitrite NEGATIVE (Negative); Urine Protein NEGATIVE (Negative); Urine RBC <5 /HPF (None Seen); Urine Urobilinogen Normal (Normal); Urine WBC <5 /HPF (<5); Urine Yeast (Budding) Trace /HPF (None Seen); Urine pH 6.5 (5.0-7.0)
[2024-04-26] MEDS ORDERED: POTASSIUM 25 MEQ EFFERV TAB ONE (18:21)
--- NOTE | 2024-04-26 19:17 | EDPHYS ---
Physician Documentation [facility] Name: Bc Hui Age: 78 yrs Sex: Male : 1945 Arrival Date: 04/26/2024 Time: 15:14 Bed 5 Private MD: ED Physician Yuly Baker HPI: 04/26 15:25 This 78 yrs old Male presents to ER via EMS with complaints of General Weakness - low cp BP. 15:25 general weakness and low blood pressure. Onset: The symptoms/episode began/occurred cp gradually, and became worse today. 15:25 Severity of symptoms: in the emergency department the symptoms are unchanged despite cp EMS interventions. Historical: - Allergies: 15:18 No Known Allergies; ll1 - PMHx: 15:18 Diabetes - NIDDM; High Cholesterol; HTN (Stomach ulcer); P16 cancer (Stomach ulcer); ll1 PERITONEAL DIALYSIS; Stomach ulcer; - PSHx: 15:18 cardiac stents (ke); defib (ke); pacemaker; triple bipass (ke); ll1 - Immunization history:: Adult Immunizations up to date. - Infectious Disease History:: Denies. - Social history:: Smoking status: Patient denies any tobacco usage or history of. ROS: 15:30 Neuro: Positive for weakness, Negative for altered mental status, headache, syncope, cp 15:30 Constitutional: Negative for body aches, chills, fever, poor PO intake, cp 15:30 Cardiovascular: Negative for chest pain, palpitations, 15:30 Respiratory: Positive for cough, Negative for shortness of breath, wheezing, 15:30 Eyes: Negative for injury, pain, redness, and discharge, cp 15:30 Abdomen/GI: Negative for abdominal pain, vomiting, constipation, black/tarry stool, cp rectal bleeding, 15:30 : Negative for urinary symptoms, 15:30 All other systems are negative, Exam: 15:35 Constitutional: The patient appears in no acute distress, alert, awake, cp non-diaphoretic, non-toxic, well developed, well nourished, 15:35 Head/Face: Normocephalic, atraumatic. cp 15:35 Eyes: Periorbital structures: appear normal, Conjunctiva: normal, no exudate, no injection, Sclera: no appreciated abnormality, Lids and lashes: appear normal, bilaterally, 15:35 ENT: External ear(s): are unremarkable, Nose: is normal, Mouth: Lips: dry, Oral mucosa: moist, Posterior pharynx: Airway: no evidence of obstruction, patent, 15:35 Neck: ROM/movement: is normal, is supple, without pain, no range of motions limitations, no meningismus, no nuchal rigidity, 15:35 Chest/axilla: Inspection: normal, 15:35 Cardiovascular: Rate: tachycardic, Edema: is not appreciated, JVD: is not appreciated, 15:35 Respiratory: the patient does not display signs of respiratory distress, Respirations: normal, no use of accessory muscles, no retractions, labored breathing, is not present, Breath sounds: decreased breath sounds, that are mild, throughout, 15:35 Abdomen/GI: Inspection: abdomen appears normal, Palpation: abdomen is soft and non-tender, in all quadrants, 15:35 Back: CVA tenderness, is absent, 15:35 Skin: cellulitis, is not appreciated, 15:35 Neuro: Orientation: to person, place \T\ time. Mentation: able to follow commands, Cerebellar function: no acute changes, Motor: no acute changes, 16:12 ECG was reviewed by the Attending Physician. cp Vital Signs: 15:16 BP 85 / 69; Pulse 107; Resp 18; Temp 98; Pulse Ox 98% on R/A; ll1 15:49 BP 111 / 58; Pulse 68; Resp 18; ll1 16:12 BP 105 / 55; Pulse 67; Resp 18; Pulse Ox 97% on R/A; ll1 16:57 BP 143 / 66; Pulse 66; Resp 18; Pulse Ox 95% on R/A; ll1 17:32 BP 124 / 70; Pulse 69; Resp 18; Pulse Ox 95% on R/A; ll1 18:33 BP 127 / 79; Pulse 70; Resp 17; Pulse Ox 96% on R/A; ll1 19:27 BP 114 / 65; Pulse 66; Resp 13; Temp 98; Pulse Ox 93% ; Pain 0/10; bm8 19:27 Pain Scale: Adult bm8 Mariaa Coma Score: 19:27 Eye Response: spontaneous(4). Motor Response: obeys commands(6). Verbal Response: bm8 oriented(5). Total: 15. MDM: 15:17 Medical Screening Exam initiated cp 17:00 Differential Diagnosis altered mental status, sepsis, dehydration, electrolyte cp abnormality, shock, uti. 19:14 Data reviewed: vital signs, nurses notes, lab test result(s), EKG, radiologic studies, cp plain films. 19:14 I considered the following discharge prescriptions or medication management in the emergency department Medications were administered in the Emergency Department. See MAR. Independent interpretation of the following test(s) in the Emergency Department EKG: See my EKG interpretation above. 19:14 Care significantly affected by the following chronic conditions: Diabetes, Congestive cp Heart Failure. Counseling: I had a detailed discussion with the patient and/or guardian regarding the historical points, exam findings, and any diagnostic results supporting the discharge/admit diagnosis, lab results, radiology results, to return to the emergency department if symptoms worsen or persist or if there are any questions or concerns that arise at home. Response to treatment: the patient's symptoms have markedly improved after treatment, and as a result, I will discharge patient. 04/26 15:20 Order name: Blood Culture Adult (2) 04/26 15:20 Order name: CBC with Diff; Complete Time: 17: 04/26 17:07 Interpretation: Normal except: WBC 11.10; RBC 3.18; HGB 10.2; HCT 30.3; RDW 15.7; CORINA% cp 84.7; LYM% 5.2; NEUT A 9.4; LYMA 0.6. 04/26 15:20 Order name: CMP; Complete Time: 17: 04/26 17:07 Interpretation: Normal except: K 3.4; GLUC 110; BUN 37; CRE 1.71; GFR 41; AST 115; TP cp 5.7; ALK 14; ALB 2.4; A/G 0.7. 04/26 15:20 Order name: Lactate w/ 2H reflex if indic.; Complete Time: 17: 04/26 15:20 Order name: Protime (+inr); Complete Time: 17:07 04/26 17:08 Interpretation: Reviewed. 04/26 15:20 Order name: Ptt, Activated; Complete Time: 17: 04/26 15:20 Order name: Urinalysis w/ reflexes; Complete Time: 17: 04/26 15:20 Order name: BNP; Complete Time: 17:07 cp 04/26 17:09 Interpretation: Abnormal: NT PRO-BNP 6143. cp 04/26 15:20 Order name: Troponin High Sensitivity; Complete Time: 17:07 cp 04/26 17:08 Interpretation: Reviewed. 04/26 15:59 Order name: Manual Differential; Complete Time: 17:07 EDMS 04/26 17:08 Interpretation: Normal except: SEGS 86; BANDS [F] 2; LYM 4. cp 04/26 18:14 Order name: Troponin High Sensitivity; Complete Time: 19:01 cp 04/26 19:01 Interpretation: Troponin HS 30.4; Reviewed. 04/26 15:20 Order name: Chest Single View XRAY; Complete Time: 17:07 cp 04/26 15:20 Order name: CT Head Brain wo Cont; Complete Time: 17:07 cp 04/26 15:20 Order name: EKG; Complete Time: 15:21 cp 04/26 15:20 Order name: Accucheck; Complete Time: 16:12 04/26 15:20 Order name: Cardiac monitoring; Complete Time: 16:12 cp 04/26 15:20 Order name: EKG - Nurse/Tech; Complete Time: 16:12 04/26 15:20 Order name: IV Saline Lock - Large Bore; Complete Time: 15:35 cp 04/26 15:20 Order name: Labs collected and sent; Complete Time: 15:35 04/26 15:20 Order name: O2 Per Protocol; Complete Time: 15:35 cp 04/26 15:20 Order name: O2 Sat Monitoring; Complete Time: 15:35 04/26 15:20 Order name: Vital Signs; Complete Time: 15:35 cp EC:12 Rate is 67 beats/min. Rhythm is regular, Paced. QRS interval is prolonged at 168 msec. cp QT interval is prolonged. Interpreted by me. Reviewed by me. Administered Medications: 15:40 Drug: NS 0.9% IV 500 ml 500 ml IV at 1 bolus once; to be given as a bolus over 30 ll1 minutes Volume: 500 ml; Route: IV; Rate: 1 bolus; Site: right antecubital; 16:55 Follow up: Response: No adverse reaction; IV Status: Completed infusion; IV Intake: ll1 500ml 18:30 Drug: Potassium PO Effervescent Tablet 25 mEq PO once; dissolve in 4 ounces of water or jl7 juice Route: PO; 19:27 Follow up: Response: No adverse reaction bm8 19:10 Drug: fentaNYL (PF) IVP 25 mcg IVP once Route: IVP; Site: right antecubital; bm8 19:26 Follow up: Response: No adverse reaction bm8 Disposition Summary: 04/26/24 19:17 Discharge Ordered Notes: Location: Home cp Problem: new cp Symptoms: have improved cp Condition: Stable cp Diagnosis - Volume depletion, unspecified cp - Dorsalgia, unspecified cp Followup: cp - With: Private Physician - When: 2 - 3 days - Reason: Recheck today's complaints Discharge Instructions: - Chronic Back Pain cp - Dehydration, Elderly cp - Discharge Summary Sheet ll1 Forms: - Medication Reconciliation Form cp - Antibiotic Education cp - Prescription Opioid Use cp - Patient Portal Instructions cp - Leadership Thank You Letter cp - SBAR form ll1 Signatures: Dispatcher [employer] Xander Laurent PA PA cp Daron Syed RN RN jl7 Abi Lei RN RN ll1 Maninder Werner RN RN bm8
--- NOTE | 2024-04-26 19:17 | ER ---
Nurse's Notes [facility] Name: Bc Hui Age: 78 yrs Sex: Male : 1945 Arrival Date: 04/26/2024 Time: 15:14 Bed 5 Private MD: Diagnosis: Volume depletion, unspecified;Dorsalgia, unspecified Presentation: 04/26 15:16 Chief complaint: Patient states: Weakness and fatigue reported. EMS states: BP 80/40's ll1 HR 60-100's pacer capturing on monitor. No IV. Coronavirus screen: Client denies travel out of the [place] in the last 14 days. Ebola Screen: Patient denies travel to an Ebola-affected area in the 21 days before illness onset. Initial Sepsis Screen: Does the patient meet any 2 criteria? Systolic BP < 90 mmHg. HR > 90 bpm. Yes Does the patient have a suspected source of infection? No. Patient's initial sepsis screen is negative. Risk Assessment: Do you want to hurt yourself or someone else? Patient reports no desire to harm self or others. Onset of symptoms was April 26, 2024. 15:16 Method Of Arrival: EMS: [facility] ll1 15:16 Acuity: SAJAN 2 ll1 Historical: - Allergies: 15:18 No Known Allergies; ll1 - PMHx: 15:18 Diabetes - NIDDM; High Cholesterol; HTN (Stomach ulcer); P16 cancer (Stomach ulcer); ll1 PERITONEAL DIALYSIS; Stomach ulcer; - PSHx: 15:18 cardiac stents (ke); defib (ke); pacemaker; triple bipass (ke); ll1 - Immunization history:: Adult Immunizations up to date. - Infectious Disease History:: Denies. - Social history:: Smoking status: Patient denies any tobacco usage or history of. Screenin:42 [facility] ED Fall Risk Assessment (Adult) History of falling in the last 3 months, ll1 including since admission No falls in past 3 months (0 pts) Confusion or Disorientation No (0 pts) Intoxicated or Sedated No (0 pts) Impaired Gait Yes (1 pt) Mobility Assist Device Used Yes (1 pt) Altered Elimination Yes (1 pt) Score/Fall Risk Level 3 or more points = High Risk Maintained a safe environment, Used ambulatory aids as needed (educated on \T\ assisted with). Abuse screen: Denies threats or abuse. Nutritional screening: No deficits noted. Tuberculosis screening: No symptoms or risk factors identified. Assessment: 15:42 General: Appears in no apparent distress. Behavior is calm, cooperative, appropriate ll1 for age. Pain: Denies pain. Neuro: Reports weakness low BP. Respiratory: Reports shortness of breath at rest Airway is patent Trachea midline Respiratory effort is even, unlabored, Respiratory pattern is regular, symmetrical. 16:00 Reassessment: No changes from previously documented assessment. Patient and/or family ll1 updated on plan of care and expected duration. Pain level reassessed. 16:57 Reassessment: No changes from previously documented assessment. Patient and/or family ll1 updated on plan of care and expected duration. Pain level reassessed. Patient is alert, oriented x 3, equal unlabored respirations, skin warm/dry/pink. 17:32 Reassessment: No changes from previously documented assessment. Patient and/or family ll1 updated on plan of care and expected duration. Pain level reassessed. Patient is alert, oriented x 3, equal unlabored respirations, skin warm/dry/pink. 18:33 Reassessment: No changes from previously documented assessment. Patient and/or family ll1 updated on plan of care and expected duration. Pain level reassessed. DOLORES Prince at Patient states feeling better. 19:27 Reassessment: Patient appears in no apparent distress at this time. Patient and/or bm8 family updated on plan of care and expected duration. Pain level reassessed. Patient is alert, oriented x 3, equal unlabored respirations, skin warm/dry/pink. redressed wounds on left leg and left arm Patient states feeling better. Patient states symptoms have improved. 19:29 Reassessment: Pt awaiting ambulance transfer to go home. bm8 Vital Signs: 15:16 BP 85 / 69; Pulse 107; Resp 18; Temp 98; Pulse Ox 98% on R/A; ll1 15:49 BP 111 / 58; Pulse 68; Resp 18; ll1 16:12 BP 105 / 55; Pulse 67; Resp 18; Pulse Ox 97% on R/A; ll1 16:57 BP 143 / 66; Pulse 66; Resp 18; Pulse Ox 95% on R/A; ll1 17:32 BP 124 / 70; Pulse 69; Resp 18; Pulse Ox 95% on R/A; ll1 18:33 BP 127 / 79; Pulse 70; Resp 17; Pulse Ox 96% on R/A; ll1 19:27 BP 114 / 65; Pulse 66; Resp 13; Temp 98; Pulse Ox 93% ; Pain 0/10; bm8 19:27 Pain Scale: Adult bm8 [place] Coma Score: 19:27 Eye Response: spontaneous(4). Motor Response: obeys commands(6). Verbal Response: bm8 oriented(5). Total: 15. ED Course: 15:15 Patient arrived in ED. ll1 15:17 Xander Castro PA is PHCP. cp 15:17 Yuly Baker MD is Attending Physician. cp 15:18 Triage completed. ll1 15:18 Arm band placed on Patient placed in an exam room, on a stretcher. ll1 15:25 Initial lab(s) drawn, by me, sent to lab. First set of blood cultures drawn. Inserted ll1 saline lock: 22 gauge in right antecubital area, using aseptic technique. Blood collected. Flushed with 10 mL NS. 15:40 Abi Lei, RN is Primary Nurse. ll1 15:43 Patient has correct armband on for positive identification. Bed in low position. ll1 Provided Education on: ER procedures and process. Client placed on continuous cardiac and pulse oximetry monitoring. NIBP monitoring applied. food production manager on. 15:49 CT Head Brain wo Cont In Process Unspecified. EDMS 15:55 cleaned brief of scant amount of brown BM. Cleaned well, new brief applied. Tolerated ll1 well. 16:06 Chest Single View XRAY In Process Unspecified. EDMS 18:30 Troponin High Sensitivity Sent. jl7 18:33 PO fluids given. ll1 19:27 No provider procedures requiring assistance completed. IV discontinued, intact, bm8 bleeding controlled, No redness/swelling at site. Pressure dressing applied. Administered Medications: 15:40 Drug: NS 0.9% IV 500 ml 500 ml IV at 1 bolus once; to be given as a bolus over 30 ll1 minutes Volume: 500 ml; Route: IV; Rate: 1 bolus; Site: right antecubital; 16:55 Follow up: Response: No adverse reaction; IV Status: Completed infusion; IV Intake: ll1 500ml 18:30 Drug: Potassium PO Effervescent Tablet 25 mEq PO once; dissolve in 4 ounces of water or jl7 juice Route: PO; 19:27 Follow up: Response: No adverse reaction bm8 19:10 Drug: fentaNYL (PF) IVP 25 mcg IVP once Route: IVP; Site: right antecubital; bm8 19:26 Follow up: Response: No adverse reaction bm8 Medication: 15:43 VIS not applicable for this client. ll1 Intake: 16:55 IV: 500ml; Total: 500ml. ll1 Outcome: 19:17 Discharge ordered by MD. cp 19:27 Discharged to home via ambulance, bm8 19:27 Condition: stable 19:27 Discharge instructions given to patient, family, Instructed on discharge instructions, follow up and referral plans. no drinking with medication, no driving heavy equipment, medication usage, safety practices, Demonstrated understanding of instructions, follow-up care, medications, 19:51 Patient left the ED. bm8 Signatures: Dispatcher [employer] EDMS Xander Castro PA PA cp Leal, Jahala RN RN jl7 Abi Lei RN RN ll1 Maninder Werner RN RN bm8 Corrections: (The following items were deleted from the chart) 15:40 15:16 BP 85 / 69; Pulse 107bpm; Resp 18bpm; Temp 98F; ll1 ll1 15:41 15:16 Chief complaint: EMS states: BP 8-/40's HR 60-100's pacer capturing on monitor. ll1 No IV. ll1 18:33 18:33 Reassessment: No changes from previously documented assessment. Patient and/or ll1 family updated on plan of care and expected duration. Pain level reassessed. Patient states feeling better. ll1 19:26 19:26 fentaNYL (PF) IVP 25 mcg IVP in right antecubital bm8 bm8
[2024-04-26] MEDS ORDERED: FENTANYL CITR 100 MCG/2 ML ONE (19:19)
[2024-04-26 19:56] VITALS: TEMP 98
[2024-04-26 20:06] VITALS: BP 114/65; O2SAT 93
--- NOTE | 2024-04-29 12:11 | EKG ---
Test Date: 2024-04-26 Test Time: 16:04:45 Apricot Packer: PH MEASUREMENT RESULTS: Intervals: Rate: 67 ID: [id number]: [id number] QT: 480 QTc: 507 Thomas: P: ID: [id number] T: -23 INTERPRETIVE STATEMENTS: Electronic ventricular pacemaker Compared to ECG 04/18/2024 23:56:03 AV dual-paced complex(es) or rhythm no longer present Electronically Signed On 04-29-24 12:05:38 COUPLES THERAPIST by Reid Huerta
== END 2024-04-26 19:51 | disposition home or self-care (01) ==
LOC: ER 15:14
DX: E86.9 Volume depletion, unspecified (principal); M54.9 Dorsalgia, unspecified; I10 Essential (primary) hypertension; Z99.2 Dependence on renal dialysis; Z95.810 Presence of automatic (implantable) cardiac defibrillator; Z95.1 Presence of aortocoronary bypass graft; Z95.818 Presence of other cardiac implants and grafts
CPT/HCPCS: 96361; 87040 ×2; 85025; 81001; 36415; 85610; 83605; 85730; 84484 ×2; 80053; 83880; 70450; 71045; 96374; 99285; J3010; J7040; 93005